=== PATIENT | male | born 1975 | race African-American/Black ===

== ENCOUNTER 2017-12-24 14:22 | Emergency (ER) | payer SELFPAY ==
[~2017-12-24 14:22] MED LIST: INSU100V SQ; NOVO7030P2 SQ
[2017-12-24 14:29] VITALS: BP 194/91; PULSE 100; RESP 16; TEMP 100; O2SAT 97
[2017-12-24] MEDS ORDERED: METF500T PO ×3 (14:44→17:15)
[2017-12-24] MEDS ORDERED: SODIUM CHLORIDE 0.9% FLUSH 10 ML FLUSH IV FLUSH PRN (14:45)
[2017-12-24 14:47] VITALS: BP 169/87; PULSE 95; RESP 15; TEMP 99.6; O2SAT 99
--- NOTE | 2017-12-24 14:55 | PD ---
HPI Chief Complaint: Skin Problem Time Seen by Provider: 14:34 Travel History International Travel<30 days: No Contact w/Intl Traveler<30days: No Traveled to known affect area: No History of Present Illness HPI Patient comes emergency department complaining of right foot and ankle pain that began 2 days ago. Describes pain as pins and needle sensation in his foot and a throbbing in his ankle. Pain is worse with walking or touching it. Patient tried taking Aleve for this with minimal to no improvement of symptoms. Last dose around 1130 this morning. Patient denies any known trauma, fevers, chest pain, shortness of breath. Patient tried soaking his foot as well with no improvement of symptoms. Pain is worse in his ankle and radiates proximally. Patient reports that he does have diabetes with some neuropathy but still has some sensation in his bilateral feet. Severity mild. PFSH Past Medical History Diabetes: Yes Immunizations Current: Yes Social History Alcohol Use: Yes (OCC.) Tobacco Use: Yes (1ppd) Substance Use: Yes (COCAINE LAST TIME USE 2 WKS. AGO) Allergies-Medications (Allergen,Severity, Reaction): Coded Allergies: No Known Allergies (Verified Adverse Reaction, Unknown, 12/24/17) Reported Meds & Prescriptions Reported Meds & Active Scripts Active Metformin (Metformin HCl) 500 Mg Tab 500 Mg PO BID With a meal Humalog Mix 75/25 (Insulin Lispro Protam/Lispro Human) 100 Units/Ml Inj 30 Units SQ BID 30 Days Reported Novolin 70/30 (Insulin Human Isoph/Insulin Regular) 100 Units/Ml Inj 70 Units SQ BID Review of Systems Except as stated in HPI: all other systems reviewed are Neg Physical Exam Narrative GENERAL: Well-developed, overly nourished, in no acute distress, and non-ill appearing. SKIN: Focused skin assessment warm and dry. HEAD: Atraumatic. Normocephalic. EYES: Pupils equal and round. EOMI. No scleral icterus. No injection or drainage. ENT: No nasal bleeding or discharge. Mucous membranes pink and moist. NECK: Trachea midline. Supple. No nuclear rigidity. CARDIOVASCULAR: Dorsal pulses 2+, intact, and equal bilaterally. Capillary refill less than 2 seconds. RESPIRATORY: No accessory muscle use. No respiratory distress. MUSCULOSKELETAL: No obvious deformities. No clubbing. No cyanosis. Trace edema right lower extremity. Full range of motion. Ankle: Neagative anterior draw and Rob test. Negative Naomy's sign. No laxity noted with passive inversion and eversion of BL ankles. Negative squeeze test. Pulses equal BL distal to injury. Capillary refill less than 2 seconds distal to injury and equal BL. Sensation equal BL 1st web space. FROM of toes distal to injury and equal BL. NV intact distal to injury and equal BL. Dorsal pulses equal BL. Patient reports tenderness palpation over right ankle and right foot. Afebrile and nonerythematous. Soft tissue swelling noted over right ankle. No crepitus. No cuts or lesions noted between toes. Calluses noted plan to surface bilateral feet. NEUROLOGICAL: Awake and alert. No obvious cranial nerve deficits. Motor grossly within normal limits. Normal speech. PSYCHIATRIC: Appropriate mood and affect; insight and judgment normal. Data Data Last Documented VS Vital Signs Date Time Temp Pulse Resp B/P (MAP) Pulse Ox O2 Delivery O2 Flow Rate FiO2 12/24/17 17:19 12/24/17 14:56 17 98 Room Air 12/24/17 14:47 99.6 95 Orders Orders Basic Metabolic Panel (Bmp) (12/24/17 14:44) Complete Blood Count With Diff (12/24/17 14:44) Prothrombin Time / Inr (Pt) (12/24/17 14:44) Act Partial Throm Time (Ptt) (12/24/17 14:44) Iv Access Insert/Monitor (12/24/17 14:44) Ecg Monitoring (12/24/17 14:44) Oximetry (12/24/17 14:44) Sodium Chloride 0.9% Flush (Ns Flush) (12/24/17 14:45) Foot, Complete ([id number]) (12/24/17 ) Ankle, Complete ([id number]) (12/24/17 ) Us Leg Venous Doppler (12/24/17 14:44) Uric Acid (12/24/17 14:50) Sodium Chlor 0.9% 1000 Ml Inj (Ns 1000 M (12/24/17 16:30) Ed Discharge Order (12/24/17 17:03) Mandatory Outpatient Referral (12/24/17 17:03) Splint Or Brace Apply/Monitor (12/24/17 17:09) [employer] Request For Service (12/24/17 17:09) Labs Laboratory Tests Test 12/24/17 14:50 White Blood Count 16.0 TH/MM3 Red Blood Count 4.12 MIL/MM3 Hemoglobin 10.7 GM/DL Hematocrit 31.5 % Mean Corpuscular Volume 76.4 FL Mean Corpuscular Hemoglobin 25.9 PG Mean Corpuscular Hemoglobin Concent 33.9 % Red Cell Distribution Width 14.3 % Platelet Count 273 TH/MM3 Mean Platelet Volume 8.8 FL Neutrophils (%) (Auto) 80.2 % Lymphocytes (%) (Auto) 8.6 % Monocytes (%) (Auto) 9.4 % Eosinophils (%) (Auto) 0.8 % Basophils (%) (Auto) 1.0 % Neutrophils # (Auto) 12.8 TH/MM3 Lymphocytes # (Auto) 1.4 TH/MM3 Monocytes # (Auto) 1.5 TH/MM3 Eosinophils # (Auto) 0.1 TH/MM3 Basophils # (Auto) 0.2 TH/MM3 CBC Comment DIFF FINAL Differential Comment Prothrombin Time 10.0 SEC Prothromb Time International Ratio 1.0 RATIO Activated Partial Thromboplast Time 26.4 SEC Blood Urea Nitrogen 19 MG/DL Creatinine 1.42 MG/DL Random Glucose 442 MG/DL Calcium Level 9.2 MG/DL Uric Acid 7.6 MG/DL Sodium Level 133 MEQ/L Potassium Level 4.5 MEQ/L Chloride Level 98 MEQ/L Carbon Dioxide Level 25.9 MEQ/L Anion Gap 9 MEQ/L Estimat Glomerular Filtration Rate 67 ML/MIN MDM Medical Decision Making Medical Screen Exam Complete: Yes Emergency Medical Condition: Yes Interpretation(s) Last Impressions Lower Extremity Ultrasound 12/24/17 1444 Signed Impressions: Service Date/Time: December 16:13 - CONCLUSION: Negative for deep venous thrombosis. Franklin Soni MD Foot X-Ray 12/24/17 0000 Signed Impressions: Service Date/Time: December 14:58 - CONCLUSION: 1. No acute right foot abnormality is identified. 2. Small arterial vessel calcification in a pattern typically seen in diabetic patients. Gibson Clay MD Ankle X-Ray 12/24/17 0000 Signed Impressions: Service Date/Time: December 14:56 - CONCLUSION: No acute right ankle abnormality is identified. 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 Gibson Clay MD Differential Diagnosis Gout, pseudogout, fracture, DVT, cellulitis, sprain Narrative Course Patient in no obvious distress upon re-evaluation. Patient reports that he is only been taking one metformin intermittently as he is on his last prescription and currently does not have a primary care doctor. Patient reports he is supposed to be taking it twice daily. All pertinent laboratory/Radiology result (s) discussed with patient. There is no signs of cellulitis or other infection. Mandatory referral was placed to podiatry. Discussed patient with Dr. Meza prior to discharge, who is in agreement plan of care and disposition. Patient was asked if they wanted to speak to my attending, which the patient did not wish to do at this time. Any questions/concerns in reference to patient diagnosis/condition discussed and clarified prior to patient's discharge. Reinforced sheer importance of close follow up with patient 's primary physician or primary care clinic and neighborhood aide. Instructed patient to return to ED immediately, if symptoms return/worsen. Patient showed understanding of above instructions. Further instructions and recommendations were detailed in discharge paperwork. Patient ambulated without difficulty out of ED at discharge. Diagnosis Primary Impression: Right ankle pain Qualified Codes: M25.571 - Pain in right ankle and joints of right foot Additional Impressions: Right foot pain Medication refill Referrals: [facility] Patient Instructions: Ankle Stirrup Splint (ED), Arthralgia (ED), General Instructions, Medication Refill, ED, Metatarsalgia (DC) Additional Instructions: Follow-up with your primary care physician and/or neighborhood aide 1-3 days for reevaluation. Take all medication as prescribed. Wear Toni wrap and ankle stirrup splint for comfort as needed. Apply ice to affected area 20 min/h as needed for pain. Return to the emergency department if symptoms get worse. Med/Other Pt SpecificInfo: Prescription(s) given Scripts Metformin (Metformin) 500 Mg Tab 500 MG PO BID for Blood Sugar Management, #60 TAB 0 Refills With a meal Prov: Ranjan Meza MD 12/24/17 Disposition: 01 DISCHARGE HOME Condition: Stable Naren Bailey December 24, 2017 14:55
[2017-12-24 14:56] VITALS: RESP 17; O2SAT 98
[2017-12-24 15:21] LABS: AUTOMATED NEUTROPHIL # 12.8 TH/MM3 (1.8-7.7); BASOPHIL # 0.2 TH/MM3 (0-0.2); EOSINOPHIL # 0.1 TH/MM3 (0-0.4); EOSINOPHIL % 0.8 % (0.0-4.0); HEMATOCRIT 31.5 % (39.0-51.0); HEMOGLOBIN 10.7 GM/DL (13.0-17.0); LYMPH % 8.6 % (9.0-44.0); LYMPHOCYTE # 1.4 TH/MM3 (1.0-4.8); MEAN CELL VOLUME 76.4 FL (80.0-100.0); MEAN CORPUSCULAR HEMOGLOBIN 25.9 PG (27.0-34.0); MEAN CORPUSCULAR HGB CONC 33.9 % (32.0-36.0); MEAN PLATELET VOLUME 8.8 FL (7.0-11.0); MONO % 9.4 % (0.0-8.0); MONOCYTE # 1.5 TH/MM3 (0-0.9); NEUT % 80.2 % (16.0-70.0); PLATELET COUNT 273 TH/MM3 (150-450); RED BLOOD COUNT 4.12 MIL/MM3 (4.50-5.90); RED CELL DISTRIBUTION WIDTH 14.3 % (11.6-17.2)
--- NOTE | 2017-12-24 15:23 | RADRPT ---
EXAM DATE/TIME: 12/24/2017 14:56 [facility] COMPARISON: No previous studies available for comparison. INDICATIONS : Right ankle pain; No known injury. MEDICAL HISTORY : None. SURGICAL HISTORY : ORIF right ankle and removal of hardware. ENCOUNTER: Initial ACUITY: 1 day PAIN SCORE: 7/10 LOCATION: Right ankle. FINDINGS: 3 views of the right ankle demonstrate no fracture or dislocation. Mineralization is within normal li mits. There are osteophytes at the tibiotalar joint. Mineralization is present within the distal inte rosseous membrane. There is mild soft tissue swelling medially. Small vessel arterial vascular calcif ication is present. CONCLUSION: No acute right ankle abnormality is identified. 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 Gibson Clay MD on December 24, 2017 at 15:20 Board Certified Radiologist. This report was verified electronically.
--- NOTE | 2017-12-24 15:25 | RADRPT ---
EXAM DATE/TIME: 12/24/2017 14:58 [facility] COMPARISON: No previous studies available for comparison. INDICATIONS : Right foot pain; no known injury. MEDICAL HISTORY : None. SURGICAL HISTORY : None. ENCOUNTER: Initial ACUITY: 1 day PAIN SCORE: 8/10 LOCATION: Right foot. FINDINGS: 3 views of the right foot demonstrate no fracture or dislocation. Mineralization is normal. Lisfranc joint appears intact. No significant degenerative change is present. No soft tissue abnormality or ra diopaque foreign body is identified. There is small vessel arterial last or calcification. CONCLUSION: 1. No acute right foot abnormality is identified. 2. Small arterial vessel calcification in a pattern typically seen in diabetic patients. Gibson Clay MD on December 24, 2017 at 15:22 Board Certified Radiologist. This report was verified electronically.
[2017-12-24 16:03] LABS: BICARBONATE 25.9 MEQ/L (21.0-32.0); CALCIUM 9.2 MG/DL (8.5-10.1); CREATININE 1.42 MG/DL (0.60-1.30)
--- NOTE | 2017-12-24 16:29 | RADRPT ---
EXAM DATE/TIME: 12/24/2017 16:13 [facility] COMPARISON: No previous studies available for comparison. INDICATIONS : Right leg pain. MEDICAL HISTORY : Diabetes. Substance use. Tobacco use. SURGICAL HISTORY : Right ankle surgery. ENCOUNTER: Initial ACUITY: 2 day PAIN SCORE: 10/10 LOCATION: Right leg. TECHNIQUE: Venous ultrasound of the leg was performed from the inguinal ligament to the proximal calf. Real-karen e, color Doppler and spectral tracing, compression and augmentation techniques were used. FINDINGS: There is normal compressibility of the deep venous system from the inguinal region to the proximal ca lf. No echogenic clot is seen in the lumen of the common femoral, femoral, popliteal, and posterior tibial veins. There is a normal response of the venous system to proximal and distal augmentation an d respiration. CONCLUSION: Negative for deep venous thrombosis. Franklin Soni MD on December 24, 2017 at 16:26 Board Certified Radiologist. This report was verified electronically.
[2017-12-24] MEDS ORDERED: SODIUM CHLOR 0.9% 1000 ML INJ 1,000 ML IV ONE (16:30)
== END 2017-12-24 18:39 | disposition home or self-care (01) ==
LOC: NEPE 14:22
DX: M25.571 Pain in right ankle and joints of right foot (principal); M79.604 Pain in right leg; E11.40 Type 2 diabetes mellitus with diabetic neuropathy, unspecified; F17.200 Nicotine dependence, unspecified, uncomplicated; Z79.4 Long term (current) use of insulin
CPT/HCPCS: 73610; 73630; 80048; 84550; 85025; 85610; 85730; 93971; 99285; E0113; J7030; L1906

== ENCOUNTER 2018-01-04 11:25 | Inpatient (IN) | payer SELFPAY ==
[~2018-01-04] VITALS: Ht 172.7 cm; Wt 118.9 kg
[~2018-01-04 11:25] MED LIST changes: +METF500T PO
[2018-01-04 11:36] VITALS: BP 115/58; PULSE 90; RESP 20; TEMP 98.5; O2SAT 99
[2018-01-04] MEDS ORDERED: SODIUM CHLOR 0.9% 1000 ML INJ 1,000 ML IV SCH (12:13)
[2018-01-04] MEDS ORDERED: ONDANSETRON ODT 4 MG TAB PO ONE (12:15)
[2018-01-04] MEDS ORDERED: PIPERACIL-TAZO 3.375 GM PREMIX 50 ML IV ONE (12:15)
[2018-01-04] MEDS ORDERED: MORPHINE SULFATE 4 MG/ML INJ IV PUSH ONE (12:15)
[2018-01-04] MEDS ORDERED: VANCOMYCIN INJ 1,000 MG in SODIUM CHLOR 0.9% 250 ML INJ 250 ML IV ONE (12:15)
--- NOTE | 2018-01-04 12:21 | PD ---
HPI Chief Complaint: Musculoskeletal Complaint Time Seen by Provider: 12:12 Travel History International Travel<30 days: No Contact w/Intl Traveler<30days: No Traveled to known affect area: No History of Present Illness HPI 42-year-old male smoker with history of diabetes presents for evaluation of right foot pain. Symptoms initially started spontaneously 3 weeks ago reports that he developed a blister proximal to the right fourth toe about 2 weeks ago which spontaneously popped. He has had increasing pain and swelling and foul smell since then. He has had subjective fevers at home. He was started on Bactrim 5 days ago with by his primary care physician. Symptoms worsen she was sent here by his primary care physician for further evaluation. Pain is throbbing, constant, worse with ambulation or palpation. He reports that he has a history of diabetes but has not been on any other medications in the past 2 years, was started back on glipizide and metformin last week by his primary care physician. No other complaints at this time. PFSH Past Medical History Cardiovascular Problems: Yes (HTN) Diabetes: Yes Diminished Hearing: No Immunizations Current: Yes Social History Alcohol Use: No Tobacco Use: Yes (1ppd) Substance Use: Yes (COCAINE LAST TIME USE 2 WKS. AGO) Allergies-Medications (Allergen,Severity, Reaction): Coded Allergies: No Known Allergies (Verified Adverse Reaction, Unknown, 01/04/18) Reported Meds & Prescriptions Reported Meds & Active Scripts Active Metformin (Metformin HCl) 500 Mg Tab 500 Mg PO BID With a meal Humalog Mix 75/25 (Insulin Lispro Protam/Lispro Human) 100 Units/Ml Inj 30 Units SQ BID 30 Days Reported Novolin 70/30 (Insulin Human Isoph/Insulin Regular) 100 Units/Ml Inj 70 Units SQ BID Review of Systems Except as stated in HPI: all other systems reviewed are Neg Physical Exam Narrative GENERAL: Well-developed well-nourished male in no acute distress SKIN: Warm and dry. 3 cm area of ulceration on the dorsum of the right foot proximal to the fourth toe. Foul-smelling, tender to palpation. There is some foul-smelling purulence in interdigital space between the third and fourth toes. The right fourth toe appears to have early necrotic changes. HEAD: Atraumatic. Normocephalic. EYES: Pupils equal and round. No scleral icterus. No injection or drainage. ENT: No nasal bleeding or discharge. Mucous membranes pink and moist. NECK: Trachea midline. No JVD. CARDIOVASCULAR: Regular rate and rhythm. No murmur appreciated. RESPIRATORY: No accessory muscle use. Clear to auscultation. Breath sounds equal bilaterally. GASTROINTESTINAL: Abdomen soft, non-tender, nondistended. Hepatic and splenic margins not palpable. MUSCULOSKELETAL: Skin as noted above. Unable to palpate the dorsalis pedis or posterior tibial pulses on either ankle or foot. The posterior tibial pulses are dopplerable. The left dorsalis pedis pulse is dopplerable. Unable to Doppler right dorsalis pedis pulse. NEUROLOGICAL: Awake and alert. No obvious cranial nerve deficits. Motor grossly within normal limits. Normal speech. Data Data Last Documented VS Vital Signs Date Time Temp Pulse Resp B/P (MAP) Pulse Ox O2 Delivery O2 Flow Rate FiO2 01/04/18 11:36 98.5 90 20 115/58 (77) 99 Orders Orders Sepsis Workup Initiated (01/04/18 ) Complete Blood Count With Diff (01/04/18 12:13) Comprehensive Metabolic Panel (01/04/18 12:13) Prothrombin Time / Inr (Pt) (01/04/18 12:13) Act Partial Throm Time (Ptt) (01/04/18 12:13) Lactic Acid Sepsis Protocol (01/04/18 12:13) Magnesium (Mg) (01/04/18 12:13) Blood Culture (01/04/18 12:13) Wound Culture And Gram Stain (01/04/18 12:13) Ecg Monitoring (01/04/18 12:13) Iv Access Insert/Monitor (01/04/18 12:13) Oximetry (01/04/18 12:13) C-Reactive Protein (Crp) (01/04/18 12:13) Westergren Sedimentation Rate (01/04/18 12:13) Morphine Inj (Morphine Inj) (01/04/18 12:15) Ondansetron Odt (Zofran Odt) (01/04/18 12:15) Piperacil-Tazo 3.375 Gm Premix (Zosyn 3. (01/04/18 12:15) Vancomycin Inj (Vancomycin Inj) (01/04/18 12:15) Sodium Chlor 0.9% 1000 Ml Inj (Ns 1000 M (01/04/18 12:13) Foot, Complete (Lpv3len) (01/04/18 ) Aspirin Chew (Aspirin Chew) (01/04/18 13:15) Dextrose 25% In Water Inj (D25w Inj) (01/04/18 13:45) Npo After Midnight W/ Po Meds (01/05/18 Breakfast) Consult Vascular Surgery (01/04/18 ) (Hub Use Only)Inp Phy Cons/Ref (01/04/18 ) Admit Order (Ed Use Only) (01/04/18 14:17) Admit To Inpatient (01/04/18 ) Inpatient Certification (01/04/18 ) Diet 1800 Ada Cons Carb (01/04/18 Dinner) Diet Heart Healthy (01/04/18 Dinner) Vital Signs (Adult) BILLY.Q4H (01/04/18 14:17) Activity Oob Ad Jacquelyn (01/04/18 14:17) Labs Laboratory Tests Test 01/04/18 12:35 White Blood Count 18.9 TH/MM3 Red Blood Count 4.20 MIL/MM3 Hemoglobin 10.5 GM/DL Hematocrit 31.6 % Mean Corpuscular Volume 75.3 FL Mean Corpuscular Hemoglobin 25.1 PG Mean Corpuscular Hemoglobin Concent 33.3 % Red Cell Distribution Width 14.5 % Platelet Count 545 TH/MM3 Mean Platelet Volume 7.5 FL Neutrophils (%) (Auto) 75.7 % Lymphocytes (%) (Auto) 15.3 % Monocytes (%) (Auto) 7.8 % Eosinophils (%) (Auto) 0.9 % Basophils (%) (Auto) 0.3 % Neutrophils # (Auto) 14.3 TH/MM3 Lymphocytes # (Auto) 2.9 TH/MM3 Monocytes # (Auto) 1.5 TH/MM3 Eosinophils # (Auto) 0.2 TH/MM3 Basophils # (Auto) 0.1 TH/MM3 CBC Comment DIFF FINAL Differential Comment Erythrocyte Sedimentation Rate GREATER THAN 140 mm/hr Prothrombin Time 10.0 SEC Prothromb Time International Ratio 1.0 RATIO Activated Partial Thromboplast Time 26.7 SEC Blood Urea Nitrogen 19 MG/DL Creatinine 1.66 MG/DL Random Glucose 67 MG/DL Total Protein 8.2 GM/DL Albumin 2.3 GM/DL Calcium Level 9.8 MG/DL Magnesium Level 1.7 MG/DL Alkaline Phosphatase 179 U/L Aspartate Amino Transf (AST/SGOT) 18 U/L Alanine Aminotransferase (ALT/SGPT) 16 U/L Total Bilirubin 0.1 MG/DL Sodium Level 139 MEQ/L Potassium Level 3.7 MEQ/L Chloride Level 107 MEQ/L Carbon Dioxide Level 21.9 MEQ/L Anion Gap 10 MEQ/L Estimat Glomerular Filtration Rate 56 ML/MIN Lactic Acid Level 1.7 mmol/L C-Reactive Protein 13.30 MG/DL MDM Medical Decision Making Medical Screen Exam Complete: Yes Emergency Medical Condition: Yes Medical Record Reviewed: Yes Differential Diagnosis Diabetic foot ulcer, gangrene, cellulitis, osteomyelitis, peripheral vascular disease, arterial occlusion Narrative Course Patient was placed on ECG monitoring pulse oximetry. Lab work, blood cultures, wound culture, foot x-ray have been ordered. The patient will be given IV morphine, normal saline, vancomycin and Zosyn. I discussed the case with the on -call vascular surgeon Dr. Cullen who will be happy to see the patient in consultation, recommend a dose of aspirin today, they plan on doing CT with runoff tomorrow. Lab work is been reviewed. WBC count is 18.9, platelet count is 545, ESR is greater than 140, CMP reveals a GFR 56, glucose 67, CRP is 13.3. Foot x-ray is normal. The patient will be admitted. Discussed with Dr. Gutierrez who is agreeable. Diagnosis Primary Impression: Diabetic foot infection Additional Impressions: Leukocytosis Peripheral vascular disease Admitting Information Admitting Physician Requests: Admit Larry Mauricio January 04, 2018 12:21
[2018-01-04 12:40] VITALS: O2SAT 98
[2018-01-04 12:53] LABS: AUTOMATED NEUTROPHIL # 14.3 TH/MM3 (1.8-7.7); BASOPHIL # 0.1 TH/MM3 (0-0.2); BASOPHIL % 0.3 % (0.0-2.0); EOSINOPHIL # 0.2 TH/MM3 (0-0.4); EOSINOPHIL % 0.9 % (0.0-4.0); HEMATOCRIT 31.6 % (39.0-51.0); HEMOGLOBIN 10.5 GM/DL (13.0-17.0); LYMPH % 15.3 % (9.0-44.0); LYMPHOCYTE # 2.9 TH/MM3 (1.0-4.8); MEAN CELL VOLUME 75.3 FL (80.0-100.0); MEAN CORPUSCULAR HEMOGLOBIN 25.1 PG (27.0-34.0); MEAN CORPUSCULAR HGB CONC 33.3 % (32.0-36.0); MEAN PLATELET VOLUME 7.5 FL (7.0-11.0); MONO % 7.8 % (0.0-8.0); MONOCYTE # 1.5 TH/MM3 (0-0.9); NEUT % 75.7 % (16.0-70.0); PLATELET COUNT 545 TH/MM3 (150-450); RED CELL DISTRIBUTION WIDTH 14.5 % (11.6-17.2); WHITE BLOOD COUNT 18.9 TH/MM3 (4.0-11.0)
--- NOTE | 2018-01-04 13:11 | RADRPT ---
EXAM DATE/TIME: 01/04/2018 12:43 [facility] COMPARISON: FOOT RIGHT COMPLETE ([id number]), December 24, 2017, 14:58. INDICATIONS : Right foot sore. MEDICAL HISTORY : Hypertension. Diabetes mellitus type II. SURGICAL HISTORY : None. ENCOUNTER: Initial ACUITY: 2 weeks PAIN SCORE: 6/10 LOCATION: Right dorsal foot. FINDINGS: Three view examination of the right foot demonstrates no soft tissue swelling, dislocation, or fractu re. The tarsal bones appear intact. The interphalangeal and metatarsophalangeal joints are intact. The calcaneus is intact. Bony mineralization is normal. Vascular calcifications again seen. CONCLUSION: Negative for acute process. Antonio Cole MD FACR on January 04, 2018 at 13:07 Board Certified Radiologist. This report was verified electronically.
[2018-01-04] MEDS ORDERED: ASPIRIN 81 MG CHEW TAB CHEW ONE (13:15)
[2018-01-04 13:16] LABS: ALBUMIN 2.3 GM/DL (3.4-5.0); ALT (GPT) 16 U/L (12-78); AST (GOT) 18 U/L (15-37); BICARBONATE 21.9 MEQ/L (21.0-32.0); BLOOD UREA NITROGEN 19 MG/DL (7-18); CALCIUM 9.8 MG/DL (8.5-10.1); CHLORIDE 107 MEQ/L (98-107); CREATININE 1.66 MG/DL (0.60-1.30); GLOMERULAR FILTRATION RATE 56 ML/MIN (>89); GLUCOSE,RANDOM 67 MG/DL (74-106); MAGNESIUM 1.7 MG/DL (1.5-2.5); SODIUM (NA) 139 MEQ/L (136-145)
[2018-01-04 13:18] LABS: ALKALINE PHOSPHATASE 179 U/L (45-117); TOTAL BILIRUBIN ADULT 0.1 MG/DL (0.2-1.0); TOTAL PROTEIN 8.2 GM/DL (6.4-8.2)
[2018-01-04] MEDS ORDERED: DEXTROSE 25% IN WATER 10 ML SYRINGE IV PUSH ONE (13:45)
--- NOTE | 2018-01-04 13:51 | PD.VS.CON ---
History of Present Illness Chief Complaint: Ischemic R LE with tissue loss Consult Requested by: History of Present Illness Mr. Garibay is a 42/M with a PMH of DM, GOUT and HTN. Pt c/o R ankle pain and swelling 3 weeks ago (no injury) Pt endorsed 2W ago he developed a blister proximal aspect below the 4th toe that has worsened and now presents w/ dry gangrene B LE warm with motor intact NON palpable distal pulses present (Kasey Caldwell) Past/Family/Social History Past Medical History DM HTN GOUT Past Surgical History Denied Social History Smokes 1ppd of cigarettes Denied ETOH Substance abuse- Cocaine (Kasey Caldwell) Home Medications Active Scripts Insulin Lisp Protam/Lisp Human (Humalog Mix 75/25) 100 Units/Ml Inj, 30 UNITS SQ BID for 30 Days, ML Prov:Santino Amado MD 12/28/12 Reported Medications Insulin Human Isophan/Regular (Novolin 70/30) 100 Units/Ml Inj, 70 UNITS SQ BID , ML 06/11/12 Discontinued Scripts Metformin (Metformin) 500 Mg Tab, 500 MG PO BID for Blood Sugar Management, #60 TAB 0 Refills With a meal Prov:Ranjan Meza MD 12/24/17 Coded Allergies: No Known Allergies (Verified Adverse Reaction, Unknown, 01/04/18) Review of Systems Cardiovascular: DENIES: Chest pain, Claudication Integumentary: COMPLAINS OF: Abnormal pigmentation (Dry gangrene to right proximal aspect of foot (below the 4th digit toe) ) (Kasey Caldwell) Physical Exam Vitals/I&O Date Time Temp Pulse Resp B/P (MAP) Pulse Ox O2 Delivery O2 Flow Rate FiO2 01/04/18 11:36 98.5 90 20 115/58 (77) 99 Neuro: GCS 15 A&OX3 Speech clear HEENT: [place] Neck: No JVD distention Heart: RRR +S1,S2 Lungs: BS CTA Abdomen: S/NT Vascular: Palpable R/L Femoral pulses Non palpable R/L DP Faint R/L DP heard via Doppler Biphasic R/L PT heard via Doppler LE warm w/ motor intact Dry gangrene to R foot present w/o odor/swelling/erythema Extremities: R foot pain (Kasey Caldwell) Laboratory Tests Test 01/04/18 12:35 White Blood Count 18.9 Red Blood Count 4.20 Hemoglobin 10.5 Hematocrit 31.6 Mean Corpuscular Volume 75.3 Mean Corpuscular Hemoglobin 25.1 Mean Corpuscular Hemoglobin Concent 33.3 Red Cell Distribution Width 14.5 Platelet Count 545 Mean Platelet Volume 7.5 Neutrophils (%) (Auto) 75.7 Lymphocytes (%) (Auto) 15.3 Monocytes (%) (Auto) 7.8 Eosinophils (%) (Auto) 0.9 Basophils (%) (Auto) 0.3 Neutrophils # (Auto) 14.3 Lymphocytes # (Auto) 2.9 Monocytes # (Auto) 1.5 Eosinophils # (Auto) 0.2 Basophils # (Auto) 0.1 CBC Comment DIFF FINAL Differential Comment Prothrombin Time 10.0 Prothromb Time International Ratio 1.0 Activated Partial Thromboplast Time 26.7 Blood Urea Nitrogen 19 Creatinine 1.66 Random Glucose 67 Total Protein 8.2 Albumin 2.3 Calcium Level 9.8 Magnesium Level 1.7 Alkaline Phosphatase 179 Aspartate Amino Transf (AST/SGOT) 18 Alanine Aminotransferase (ALT/SGPT) 16 Total Bilirubin 0.1 Sodium Level 139 Potassium Level 3.7 Chloride Level 107 Carbon Dioxide Level 21.9 Anion Gap 10 Estimat Glomerular Filtration Rate 56 Lactic Acid Level 1.7 C-Reactive Protein 13.30 Date/Time Source Procedure Growth Status 01/04/18 12:40 Blood Peripheral Aerobic Blood Culture Pending Received 01/04/18 12:40 Blood Peripheral Anaerobic Blood Culture Pending Received 01/04/18 12:30 Wound Foot Gram Stain Pending Received 01/04/18 12:30 Wound Foot Wound Culture Pending Received (Kasey Caldwell) Assessment and Plan Assessment: (1) Peripheral vascular disease Status: Acute (2) Diabetic foot infection Status: Acute Plan 42/M with R LE ischemia/ tissue loss for 2W Pt w/ non palpable distal pulses LE warm w/ motor intact Plan Discussed R LE angiogram for potential revascularization w/ pt and family Questions answered Pt scheduled for R LE angiogram w/ Dr. Cullen tomorrow (01/05/18) NPO after midnight in prep for diagnostic procedure Kasey Caldwell [employer] TE[employer] [facility]/[employer] [phone] (Kasey Caldwell) Plan Agree with above; repeated H&P. palpable R femoral pulse and no popliteal or pedal pulses. Foot with diabetic ulcer. 1. Needs revascularization: will perform R LE angiogram and possible endovascular intervention tomorrow (Ana). NPO after MN 2. Check Hgb A1c 3. Broad antibiotics 4. Podiatry consult [facility] psychologist [facility] - Heart [facility] Vascular [facility] at [facility] [phone] (Moe Cullen MD) Kasey Caldwell January 04, 2018 13:51 Moe Cullen MD January 04, 2018 22:26
--- NOTE | 2018-01-04 14:56 | PD ---
Physical Exam Narrative Please see mid-level provider note for full history and physical and disposition. Patient presented to the emergency department with right foot pain. Was afebrile vital signs are stable found to have infected diabetic foot ulcer received IV antibiotics and admitted. Data Data Last Documented VS Vital Signs Date Time Temp Pulse Resp B/P (MAP) Pulse Ox O2 Delivery O2 Flow Rate FiO2 01/04/18 11:36 98.5 90 20 115/58 (77) 99 Orders Orders Sepsis Workup Initiated (01/04/18 ) Complete Blood Count With Diff (01/04/18 12:13) Comprehensive Metabolic Panel (01/04/18 12:13) Prothrombin Time / Inr (Pt) (01/04/18 12:13) Act Partial Throm Time (Ptt) (01/04/18 12:13) Lactic Acid Sepsis Protocol (01/04/18 12:13) Magnesium (Mg) (01/04/18 12:13) Blood Culture (01/04/18 12:13) Wound Culture And Gram Stain (01/04/18 12:13) Ecg Monitoring (01/04/18 12:13) Iv Access Insert/Monitor (01/04/18 12:13) Oximetry (01/04/18 12:13) C-Reactive Protein (Crp) (01/04/18 12:13) Westergren Sedimentation Rate (01/04/18 12:13) Morphine Inj (Morphine Inj) (01/04/18 12:15) Ondansetron Odt (Zofran Odt) (01/04/18 12:15) Piperacil-Tazo 3.375 Gm Premix (Zosyn 3. (01/04/18 12:15) Vancomycin Inj (Vancomycin Inj) (01/04/18 12:15) Sodium Chlor 0.9% 1000 Ml Inj (Ns 1000 M (01/04/18 12:13) Foot, Complete (Edg4pmf) (01/04/18 ) Aspirin Chew (Aspirin Chew) (01/04/18 13:15) Dextrose 25% In Water Inj (D25w Inj) (01/04/18 13:45) Npo After Midnight W/ Po Meds (01/05/18 Breakfast) Consult Vascular Surgery (01/04/18 ) (Hub Use Only)Inp Phy Cons/Ref (01/04/18 ) Admit Order (Ed Use Only) (01/04/18 14:17) Admit To Inpatient (01/04/18 ) Inpatient Certification (01/04/18 ) Diet 1800 Ada Cons Carb (01/04/18 Dinner) Diet Heart Healthy (01/04/18 Dinner) Vital Signs (Adult) BILLY.Q4H (01/04/18 14:17) Activity Oob Ad Jacquelyn (01/04/18 14:17) Labs Laboratory Tests Test 01/04/18 12:35 White Blood Count 18.9 TH/MM3 Red Blood Count 4.20 MIL/MM3 Hemoglobin 10.5 GM/DL Hematocrit 31.6 % Mean Corpuscular Volume 75.3 FL Mean Corpuscular Hemoglobin 25.1 PG Mean Corpuscular Hemoglobin Concent 33.3 % Red Cell Distribution Width 14.5 % Platelet Count 545 TH/MM3 Mean Platelet Volume 7.5 FL Neutrophils (%) (Auto) 75.7 % Lymphocytes (%) (Auto) 15.3 % Monocytes (%) (Auto) 7.8 % Eosinophils (%) (Auto) 0.9 % Basophils (%) (Auto) 0.3 % Neutrophils # (Auto) 14.3 TH/MM3 Lymphocytes # (Auto) 2.9 TH/MM3 Monocytes # (Auto) 1.5 TH/MM3 Eosinophils # (Auto) 0.2 TH/MM3 Basophils # (Auto) 0.1 TH/MM3 CBC Comment DIFF FINAL Differential Comment Erythrocyte Sedimentation Rate GREATER THAN 140 mm/hr Prothrombin Time 10.0 SEC Prothromb Time International Ratio 1.0 RATIO Activated Partial Thromboplast Time 26.7 SEC Blood Urea Nitrogen 19 MG/DL Creatinine 1.66 MG/DL Random Glucose 67 MG/DL Total Protein 8.2 GM/DL Albumin 2.3 GM/DL Calcium Level 9.8 MG/DL Magnesium Level 1.7 MG/DL Alkaline Phosphatase 179 U/L Aspartate Amino Transf (AST/SGOT) 18 U/L Alanine Aminotransferase (ALT/SGPT) 16 U/L Total Bilirubin 0.1 MG/DL Sodium Level 139 MEQ/L Potassium Level 3.7 MEQ/L Chloride Level 107 MEQ/L Carbon Dioxide Level 21.9 MEQ/L Anion Gap 10 MEQ/L Estimat Glomerular Filtration Rate 56 ML/MIN Lactic Acid Level 1.7 mmol/L C-Reactive Protein 13.30 MG/DL [facility] Supervised Visit with MARINO: Yes Diagnosis Primary Impression: Diabetic foot infection Additional Impressions: Leukocytosis Qualified Codes: D72.829 - Elevated white blood cell count, unspecified Peripheral vascular disease Admitting Information Admitting Physician Requests: Admit Condition: Stable Berta Funez MD January 04, 2018 14:56
[2018-01-04] MEDS: SODIUM CHLOR 0.9% 1000 ML INJ 1,000 ML IV SCH (15:37)
[2018-01-04 16:03] VITALS: BP 148/75; PULSE 77; RESP 18; O2SAT 100
[2018-01-04 16:25] VITALS: BP 167/86; PULSE 80; RESP 18; TEMP 97.6; O2SAT 99
--- NOTE | 2018-01-04 17:23 | HHI.HP ---
[facility] Physician Vivek Clifford, Admission Diagnosis Diabetic foot ulcer, leukocytosis, peripheral vascular disease Diagnoses: Chief Complaint: Right foot pain swelling open wound Travel History International Travel<30 Days: No Contact w/Intl Traveler <30 Da: No Traveled to Known Affected Are: No Sepsis Criteria Sepsis Criteria (SIRS+source): Infect source susp/known History of Present Illness Patient is a 43-year-old male diabetic insulin requiring, hypertension who about 2 weeks prior to admission complaining complained of swelling of the right foot. Patient with fever and chills. Next day developed blister on the anterior aspect of the foot and sought consult with the PCP where it was initially told it was gout.. patient also states that he was also placed on Bactrim for 5 days. 4 days later with worsening swelling. Draining foul- smelling yellowish exudate minimal per . He was seen in follow-up by primary care physician and was sent here for further evaluation and management. Patient states good hypoglycemic awareness. He states that he was just also recently started on 7030 10 units twice a day. Patient complains of neuropathic pain for which he takes gabapentin. Review of Systems Constitutional: DENIES: Fever, Weight loss, Chills, Change in appetite Eyes: DENIES: Blurred vision, Double Vision Ears, nose, mouth, throat: DENIES: Tinnitus, Ear Pain, Epistaxis, Odynophagia Respiratory: DENIES: Cough, Hemoptysis, Sputum production, Shortness of breath Cardiovascular: DENIES: Chest pain, Palpitations, Dyspnea on Exertion, Lower Extremity Edema, Orthopnea Gastrointestinal: DENIES: Black stools, Bloody stools, Difficulty Swallowing, Anorexia Genitourinary: DENIES: Urgency, Hematuria, Penile Discharge Musculoskeletal: DENIES: Joint pain, Stiffness Integumentary: DENIES: Pruritus Hematologic/lymphatic: DENIES: Bruising Immunologic/allergic: DENIES: Urticaria Neurologic: DENIES: Headache, Speech Problems, Tremor Psychiatric: DENIES: Suicidal Ideation, Homicidal Ideation Past Family Social History Past Medical History Hypertension Diabetes type 2 insulin requiring at one point Neuropathy Past Surgical History Right ankle surgery secondary to fracture status post fall at 15 years of age Wrist surgery secondary to fracture Reported Medications Metformin 1000 mg twice a day Gabapentin 300 mg 3 times a day Lisinopril patient is not sure if it has been over 5 mg daily 7030 unclear how many units states he was just recently started. Twice a day Allergies: Coded Allergies: No Known Allergies (Verified Adverse Reaction, Unknown, 01/04/18) Family History Both parents have hypertension and diabetes Social History Half pack per day smoker Denies alcohol or recreational drug use Physical Exam Vital Signs Vital Signs Date Time Temp Pulse Resp B/P (MAP) Pulse Ox O2 Delivery O2 Flow Rate FiO2 01/04/18 16:25 97.6 80 18 167/86 (113) 99 01/04/18 16:03 77 18 148/75 (99) 100 Room Air 01/04/18 12:40 98 Room Air 01/04/18 11:36 98.5 90 20 115/58 (77) 99 Physical Exam GENERAL:, in no apparent distress. SKIN: No rashes, HEAD: Atraumatic. Normocephalic. EYES: Pupils equal round and reactive. Extraocular motions intact. No scleral icterus. ENT: Nose without bleeding Throat without erythema.. Airway patent. NECK: Trachea midline. No JVD or lymphadenopathy. Supple, nontender, no meningeal signs. CARDIOVASCULAR: Regular rate and rhythm without murmurs, gallops, or rubs. RESPIRATORY: Clear to auscultation. Breath sounds equal bilaterally. No wheezes , rales, or rhonchi. GASTROINTESTINAL: Abdomen soft, non-tender, nondistended. No guarding. MUSCULOSKELETAL: Right forefoot anterior aspect with irregular about 5 cm x 4 cm fluctuant superficial ulcer -intact superficially you can see under the skin with lt yellowish discoloration- pus with dry gangrene of the tip of the fourth toe, base of the posterior aspect of 4th toe with small open wound, draining foul-smelling thin yellowish fluid Foot warm to touch. NEUROLOGICAL: Awake and alert. Cranial nerves II through XII intact. Motor grossly within normal limits. Five out of 5 muscle strength in all muscle groups. Normal speech. Laboratory Laboratory Tests Test 01/04/18 12:35 White Blood Count 18.9 Red Blood Count 4.20 Hemoglobin 10.5 Hematocrit 31.6 Mean Corpuscular Volume 75.3 Mean Corpuscular Hemoglobin 25.1 Mean Corpuscular Hemoglobin Concent 33.3 Red Cell Distribution Width 14.5 Platelet Count 545 Mean Platelet Volume 7.5 Neutrophils (%) (Auto) 75.7 Lymphocytes (%) (Auto) 15.3 Monocytes (%) (Auto) 7.8 Eosinophils (%) (Auto) 0.9 Basophils (%) (Auto) 0.3 Neutrophils # (Auto) 14.3 Lymphocytes # (Auto) 2.9 Monocytes # (Auto) 1.5 Eosinophils # (Auto) 0.2 Basophils # (Auto) 0.1 CBC Comment DIFF FINAL Differential Comment Erythrocyte Sedimentation Rate GREATER THAN 140 Prothrombin Time 10.0 Prothromb Time International Ratio 1.0 Activated Partial Thromboplast Time 26.7 Blood Urea Nitrogen 19 Creatinine 1.66 Random Glucose 67 Total Protein 8.2 Albumin 2.3 Calcium Level 9.8 Magnesium Level 1.7 Alkaline Phosphatase 179 Aspartate Amino Transf (AST/SGOT) 18 Alanine Aminotransferase (ALT/SGPT) 16 Total Bilirubin 0.1 Sodium Level 139 Potassium Level 3.7 Chloride Level 107 Carbon Dioxide Level 21.9 Anion Gap 10 Estimat Glomerular Filtration Rate 56 Lactic Acid Level 1.7 C-Reactive Protein 13.30 Date/Time Source Procedure Growth Status 01/04/18 12:40 Blood Peripheral Aerobic Blood Culture Pending Received 01/04/18 12:40 Blood Peripheral Anaerobic Blood Culture Pending Received 01/04/18 12:30 Wound Foot Gram Stain - Final Resulted 01/04/18 12:30 Wound Foot Wound Culture Pending Resulted Result Diagram: 01/04/18 1235 01/04/18 1235 Imaging Last Impressions Foot X-Ray 01/04/18 0000 Signed Impressions: Service Date/Time: Thursday, January 04, 2018 12:43 - CONCLUSION: Negative for acute process. Antonio Cole MD FACR Caprini VTE Risk Assessment Caprini VTE Risk Assessment: Mod/High Risk (score >= 2) VTE Pharm Contraindication: for procedure Caprini Risk Assessment Model Point Value = 1 Point Value = 2 Point Value = 3 Point Value = 5 Age 41-60 Minor surgery BMI > 25 kg/m2 Swollen legs Varicose veins or History of unexplained or recurrent spontaneous Oral contraceptives or hormone replacement Sepsis (< 1 month) Serious lung disease, including pneumonia (< 1 month) Abnormal pulmonary function Acute myocardial infarction Congestive heart failure (< 1 month) History of inflammatory bowel disease Medical patient at bed rest Age 61-74 Arthroscopic surgery Major open surgery (> 45 min) Laparoscopic surgery (> 45 min) Malignancy Confined to bed (> 72 hours) Immobilizing plaster cast Central venous access Age >= 75 History of VTE Family history of VTE Factor V Leiden Prothrombin [id number] Lupus anticoagulant Anticardiolipin antibodies Elevated serum homocysteine Heparin-induced thrombocytopenia Other congenital or acquired thrombophilia Stroke (< 1 month) Elective arthroplasty Hip, pelvis, or leg fracture Acute spinal cord injury (< 1 month) Prophylaxis Regimen Total Risk Factor Score Risk Level Prophylaxis Regimen 0-1 Low Early ambulation 2 Moderate Order ONE of the following: *Sequential Compression Device (SCD) *Heparin 5000 units SQ BID 3-4 Higher Order ONE of the following medications: *Heparin 5000 units SQ TID *Enoxaparin/Lovenox 40 mg SQ daily (WT < 150 kg, CrCl > 30 mL/min) *Enoxaparin/Lovenox 30 mg SQ daily (WT < 150 kg, CrCl > 10-29 mL/min) *Enoxaparin/Lovenox 30 mg SQ BID (WT < 150 kg, CrCl > 30 mL/min) AND/OR *Sequential Compression Device (SCD) 5 or more Highest Order ONE of the following medications: *Heparin 5000 units SQ TID (Preferred with Epidurals) *Enoxaparin/Lovenox 40 mg SQ daily (WT < 150 kg, CrCl > 30 mL/min) *Enoxaparin/Lovenox 30 mg SQ daily (WT < 150 kg, CrCl > 10-29 mL/min) *Enoxaparin/Lovenox 30 mg SQ BID (WT < 150 kg, CrCl > 30 mL/min) AND *Sequential Compression Device (SCD) Assessment and Plan Assessment and Plan 42-year-old male Sepsis secondary to diabetic right foot infection with dry gangrene 4th digit with possible abscess on exam and possible underlying OM Peripheral vascular disease get a CT to rule out possible abscess and osteomyelitis. Elevated ESR and CRP IV vancomycin 1 gm q 12 - consult pharmacy Cefepime 2 gm q 12 - for gram negative coverage Podiatry consult for further evaluation may need IND or even amputation. CT angiogram was requested by vascular surgery We will keep n.p.o. post midnight for possible procedure- will need I and D if + abscess, possibly transmetatarsal amputation or possible BKA- based on CTA Vascular surgery consulted wound care team consult prn pain meds- Percocet q 6 - with pain scale Hypertension. Continue lisinopril 10 mg p.o. daily get CXR/EKG Diabetes type 2 Check fingersticks 3 times daily and record. diabetes education. Check hemoglobin A1c. Hold Metformin- for CTA studies Sliding scale 3 times a day and record with coverage Acute kidney injury - likely with underlying diabetic nephropathy start NS 7o cc/hr ff BMP post CTA. Hold Metformin Diabetic neuropathy Continue on gabapentin 300 mg 3 times a day Hypertension Continue on lisinopril 10 mg daily Microcytic anemia denies any melena or hematochezia check iron studies Smoker. Counseled Keep NPO post midnight for possible procedure Lovenox for DVT prophylaxis- will hold for now- will likely have a procedure tomorrow- I and D after evaluated by Podiatry Protonix 20 mg daily for GI prophylaxis Physician Certification 2 Midnight Certification Type: Admission for Inpatient Services Order for Inpatient Services The services are ordered in accordance with Medicare regulations or non- Medicare payer requirements, as applicable. In the case of services not specified as inpatient-only, they are appropriately provided as inpatient services in accordance with the 2-midnight benchmark. Estimated LOS (days): 3 days is the estimated time the patient will need to remain in the hospital, assuming treatment plan goals are met and no additional complications. Post-Hospital Plan: Not yet determined Jacquelin Gutierrez MD January 04, 2018 17:23
[2018-01-04] MEDS ORDERED: DEXTROSE 50% IN WATER 50 ML VIAL(D50) IV PUSH PRN (17:45)
[2018-01-04] MEDS ORDERED: GLUCAGON 1 MG/ML VIAL OTHER PRN (17:45)
[2018-01-04] MEDS ORDERED: oxyCODONE/ACETAMINOPHEN 5 MG/325 MG TAB PO PRN (18:00)
[2018-01-04] MEDS ORDERED: Vancomycin Consult Pharmacy 1 EA OTHER SCH (18:00)
[2018-01-04] MEDS: CEFEPIME INJ 2,000 MG in SODIUM CHLORIDE 0.9% INJ 100 ML IV SCH (18:00)
--- NOTE | 2018-01-04 18:07 | RADRPT ---
EXAM DATE/TIME: 01/04/2018 17:37 [facility] COMPARISON: FOOT RIGHT COMPLETE ([id number]), January 04, 2018, 12:43. INDICATIONS : Right foot abscess RADIATION DOSE: 7.29 CTDIvol (mGy) MEDICAL HISTORY : Hypertension. Diabetes SURGICAL HISTORY : None. ENCOUNTER: Initial ACUITY: 1 day PAIN SCALE: 2/10 LOCATION: Right Foot TECHNIQUE: Volumetric scanning of the foot was performed. Using automated exposure control and adjustment of th e mA and/or kV according to patient size, radiation dose was kept as low as reasonably achievable to obtain optimal diagnostic quality images. DICOM format image data is available electronically for re view and comparison. FINDINGS: There is diffuse soft tissue edema in the mid and proximal forefoot. There is a dorsal soft tissue de fect in the lateral proximal forefoot with small foci of subcutaneous air extending to the fourth dig it. The subcutaneous air extends to the periosteal surface although the underlying osseous structures appear intact without definite erosive change. There is also no significant periosteal reaction. No focal drainable fluid collections are noted. CONCLUSION: 1. Soft tissue ulcer in the lateral proximal forefoot with subcutaneous air extending to the base of the fourth digit. No definite osseous abnormality to suggest osteomyelitis. Consider MRI examination if there is continued clinical concern. Giorgi Rider MD on January 04, 2018 at 17:56 Board Certified Radiologist. This report was verified electronically.
[2018-01-04] MEDS: GABAPENTIN 300 MG CAP PO SCH (18:17)
[2018-01-04] MEDS: oxyCODONE/ACETAMINOPHEN 7.5 MG/325 MG TAB PO PRN (18:27)
[2018-01-04 20:00] VITALS: BP 136/78; PULSE 89; RESP 18; TEMP 98.2; O2SAT 97
[2018-01-04] MEDS ORDERED: PIPERACIL-TAZO 3.375 GM PREMIX 50 ML IV SCH (20:00)
[2018-01-04] MEDS: INSULIN ASPART SUPPLEMENTAL SCALE SQ SCH (21:00)
[2018-01-04] MEDS ORDERED: ZOLPIDEM TARTRATE 5 MG TAB PO ONE (22:15)
[2018-01-05] VITALS: BP 168/89; PULSE 63; RESP 18; TEMP 97.9; O2SAT 99
[2018-01-05] MEDS: oxyCODONE/ACETAMINOPHEN 7.5 MG/325 MG TAB PO PRN ×4 (00:53→20:56)
[2018-01-05] MEDS: VANCOMYCIN INJ 1,250 MG in SODIUM CHLOR 0.9% 250 ML INJ 250 ML IV SCH ×2 (00:55→13:47)
[2018-01-05 04:00] VITALS: BP 154/93; PULSE 83; RESP 18; TEMP 98.4; O2SAT 97
[2018-01-05] MEDS: SODIUM CHLOR 0.9% 1000 ML INJ 1,000 ML IV SCH ×2 (05:18→10:40)
[2018-01-05] MEDS ORDERED: VANCOMYCIN INJ 1,000 MG in SODIUM CHLOR 0.9% 250 ML INJ 250 ML IV SCH (06:00)
[2018-01-05] MEDS: CEFEPIME INJ 2,000 MG in SODIUM CHLORIDE 0.9% INJ 100 ML IV SCH (06:04)
[2018-01-05 06:24] LABS: AUTOMATED NEUTROPHIL # 10.3 TH/MM3 (1.8-7.7); BASOPHIL # 0.1 TH/MM3 (0-0.2); BASOPHIL % 0.5 % (0.0-2.0); EOSINOPHIL # 0.2 TH/MM3 (0-0.4); EOSINOPHIL % 1.5 % (0.0-4.0); HEMATOCRIT 26.3 % (39.0-51.0); HEMOGLOBIN 8.8 GM/DL (13.0-17.0); LYMPH % 14.9 % (9.0-44.0); MEAN CELL VOLUME 75.4 FL (80.0-100.0); MEAN CORPUSCULAR HEMOGLOBIN 25.1 PG (27.0-34.0); MEAN CORPUSCULAR HGB CONC 33.3 % (32.0-36.0); MEAN PLATELET VOLUME 7.7 FL (7.0-11.0); MONO % 8.1 % (0.0-8.0); MONOCYTE # 1.1 TH/MM3 (0-0.9); PLATELET COUNT 439 TH/MM3 (150-450); RED BLOOD COUNT 3.49 MIL/MM3 (4.50-5.90); RED CELL DISTRIBUTION WIDTH 14.3 % (11.6-17.2); WHITE BLOOD COUNT 13.7 TH/MM3 (4.0-11.0)
[2018-01-05 07:44] LABS: BLOOD UREA NITROGEN 17 MG/DL (7-18); CALCIUM 8.9 MG/DL (8.5-10.1); CHLORIDE 110 MEQ/L (98-107); CREATININE 1.33 MG/DL (0.60-1.30); GLOMERULAR FILTRATION RATE 72 ML/MIN (>89); GLUCOSE,RANDOM 129 MG/DL (74-106); SODIUM (NA) 141 MEQ/L (136-145)
[2018-01-05 07:45] LABS: BICARBONATE 23.5 MEQ/L (21.0-32.0); CHOLESTEROL 166 MG/DL (120-200); CHOLESTEROL/ HDL RATIO 6.01 RATIO; FERRITIN 259 NG/ML (26-388); HDL CHOLESTEROL 27.6 MG/DL (40.0-60.0); IRON (FE) 27 MCG/DL (65-175); LDL CHOLESTEROL 102 MG/DL (0-99); TRIGLYCERIDES 180 MG/DL (42-150)
[2018-01-05] MEDS: INSULIN ASPART SUPPLEMENTAL SCALE SQ SCH ×4 (08:00→20:58)
[2018-01-05 08:15] VITALS: BP 188/93; PULSE 88; RESP 18; TEMP 97.8; O2SAT 98
[2018-01-05 08:16] LABS: % SATURATION IRON PROFILE 15.7 % (20-50); TOTAL IRON BINDING CAPACITY 172 MCG/DL (250-450)
--- NOTE | 2018-01-05 08:40 | MB ---
cc: Masoud Gaets DPM DATE: 01/05/2018 REASON FOR CONSULTATION: Right diabetic foot infection, gangrene. FINDINGS: Right fourth digit. HISTORY OF PRESENT ILLNESS: This is a 43-year-old male who was seen by a primary care doctor for a blister. He initially was told it was gout and he was placed on Bactrim. He continued to have worsening of his foot and then started developing a foul smelling yellowish discharge. The patient was then sent by the primary for further management. Currently, I am seeing the patient bedside. He appears to have some malaise. He appears to be awake though without significant difficulty. PAST MEDICAL HISTORY: Hypertension, diabetes, neuropathy. PAST SURGICAL HISTORY: Right ankle surgery, fracture post fall 14 years ago. Wrist fracture surgery. MEDICATIONS: 1. Metformin. 2. Gabapentin. 3. Lisinopril. INPATIENT MEDICATIONS: Reviewed. He is receiving vancomycin and Zosyn. ALLERGIES: NONE LISTED. PHYSICAL EXAMINATION: VITAL SIGNS: Temperature 98.4, pulse rate 83, respiratory rate 18, blood pressure 154/93, saturating 97% on room air. This is a 106 kilogram male seen bedside exhibiting nonlabored respirations. He is verbal and appropriate. EXTREMITIES: Bilateral lower extremities. Right lower extremity, there is noted to be stable, gangrenous changes to the dorsal aspect of the fourth digit with an ischemic bulla blister with fluctuance and odor over the dorsum of the foot. The foot from the calf down appears to be slightly cool. Pulses are very hard to palpate. Capillary fill time is not intact of the fourth digit, but the remaining digits appear to have good or a stable capillary fill time. There is decreased sensation to light touch. There is good range of motion of the bilateral ankle. Left foot is free from any obvious ulcer; however, it appears to be slightly cool from the calf down. Pulses diminished as well. LABORATORY DATA: White blood cell 13.7, hemoglobin and hematocrit 8 and 26, platelet count is 439. ESR greater than 140. Chem-7: Sodium 141, potassium 4.4, chloride 110, CO2 23.5, BUN 17, creatinine 1.3. Hemoglobin A1c is pending. Random glucose 129. Coagulation profile: PT 10, INR 1.0. IMAGING FINDINGS: X-ray foot, negative for acute process. CT soft tissue ulcer at the lateral proximal forefoot with subcutaneous air extending to the base of the fourth digit. No definitive osseous abnormalities to suggest osteomyelitis. ASSESSMENT: Right diabetic foot infection, fourth digit gangrene, likely a gas-producing organism within the foot. PLAN: Discussed with Dr. Cullen. We wished to eradicate or at least debulked the infection before moving forward with a vascular intervention. I educated the patient on the severity of the foot infection that this is limb threatening. He wished for all limb salvage efforts to take place. My plan is surgery today, hopefully vascular surgery within the next 1-2 days, the patient overall at this point has a poor prognosis given the extent of the infection. He may need multiple staged procedures. Masoud Gates DPM DBM/DL , 08:21 AM , 08:40 AM
--- NOTE | 2018-01-05 09:32 | RADRPT ---
EXAM DATE/TIME: 01/05/2018 09:18 [facility] COMPARISON: FOOT RIGHT COMPLETE ([id number]), January 04, 2018, 12:43. INDICATIONS : Evaluate for pneumonia, pneumothorax, and communicable diseases. Pre-op right foot surgery for ulcer. MEDICAL HISTORY : Hypertension. Diabetes SURGICAL HISTORY : None. ENCOUNTER: Subsequent ACUITY: 2 days PAIN SCORE: 0/10 LOCATION: Bilateral chest FINDINGS: PA and lateral views of the chest demonstrate the lungs to be symmetrically aerated without evidence of mass, infiltrate or effusion. The cardiomediastinal contours are unremarkable. Osseous structure s are intact. CONCLUSION: 1. No acute cardiopulmonary findings. Fausto Cole MD on January 05, 2018 at 9:28 Board Certified Radiologist. This report was verified electronically.
--- NOTE | 2018-01-05 09:34 | EKG ---
Date Performed: 01/04/2018 Time Performed: 19:08:30 PTAGE: 42 years EKG: Sinus rhythm WITH OCCASIONAL SUPRAVENTRICULAR PREMATURE COMPLEXES NONSPECIFIC T-WAVE ABNORMALITY BORDERLINE ECG NO PREVIOUS TRACING DOCTOR: Maria Antoine Interpretating Date/Time 01/05/2018 09:33:46
[2018-01-05] MEDS: GABAPENTIN 300 MG CAP PO SCH ×3 (09:52→16:39)
[2018-01-05] MEDS: LISINOPRIL 10 MG TAB PO SCH (09:52)
[2018-01-05] MEDS: PANTOPRAZOLE SOD 20 MG DELAYED RELEASE TAB PO SCH (09:52)
[2018-01-05] MEDS: MORPHINE SULFATE 4 MG/ML INJ IV PUSH PRN (10:42)
--- NOTE | 2018-01-05 11:44 | PD.VS.PN ---
Subjective Subjective/Hospital Course Pain controlled LE warm w/ motor intact R LE wound stable Objective Vitals/I&O Date Time Temp Pulse Resp B/P (MAP) Pulse Ox O2 Delivery O2 Flow Rate FiO2 01/05/18 08:15 97.8 88 18 188/93 (124) 98 01/05/18 04:00 98.4 83 18 154/93 (113) 97 01/05/18 01:53 18 01/05/18 00:00 97.9 63 18 168/89 (115) 99 01/04/18 20:00 98.2 89 18 136/78 (97) 97 01/04/18 16:25 97.6 80 18 167/86 (113) 99 01/04/18 16:03 77 18 148/75 (99) 100 Room Air 01/04/18 12:40 98 Room Air 01/05/18 01/05/18 01/05/18 07:00 15:00 23:00 Intake Total 620 ml Balance 620 ml Physical Exam Palpable R/L Femoral pulses Non palpable R/L DP Faint R/L DP heard via Doppler Biphasic R/L PT heard via Doppler LE warm w/ motor intact Gangrenous ulceration to R foot present w/o odor/swelling/erythema Laboratory Laboratory Tests Test 01/04/18 12:35 01/05/18 05:25 White Blood Count 18.9 13.7 Red Blood Count 4.20 3.49 Hemoglobin 10.5 8.8 Hematocrit 31.6 26.3 Mean Corpuscular Volume 75.3 75.4 Mean Corpuscular Hemoglobin 25.1 25.1 Mean Corpuscular Hemoglobin Concent 33.3 33.3 Red Cell Distribution Width 14.5 14.3 Platelet Count 545 439 Mean Platelet Volume 7.5 7.7 Neutrophils (%) (Auto) 75.7 75.0 Lymphocytes (%) (Auto) 15.3 14.9 Monocytes (%) (Auto) 7.8 8.1 Eosinophils (%) (Auto) 0.9 1.5 Basophils (%) (Auto) 0.3 0.5 Neutrophils # (Auto) 14.3 10.3 Lymphocytes # (Auto) 2.9 2.0 Monocytes # (Auto) 1.5 1.1 Eosinophils # (Auto) 0.2 0.2 Basophils # (Auto) 0.1 0.1 CBC Comment DIFF FINAL DIFF FINAL Differential Comment Erythrocyte Sedimentation Rate GREATER THAN 140 Prothrombin Time 10.0 Prothromb Time International Ratio 1.0 Activated Partial Thromboplast Time 26.7 Blood Urea Nitrogen 19 17 Creatinine 1.66 1.33 Random Glucose 67 129 Total Protein 8.2 Albumin 2.3 Calcium Level 9.8 8.9 Magnesium Level 1.7 Alkaline Phosphatase 179 Aspartate Amino Transf (AST/SGOT) 18 Alanine Aminotransferase (ALT/SGPT) 16 Total Bilirubin 0.1 Sodium Level 139 141 Potassium Level 3.7 4.4 Chloride Level 107 110 Carbon Dioxide Level 21.9 23.5 Anion Gap 10 8 Estimat Glomerular Filtration Rate 56 72 Lactic Acid Level 1.7 C-Reactive Protein 13.30 Iron Level 27 Total Iron Binding Capacity 172 Percent Iron Saturation 15.7 Ferritin 259 Triglycerides Level 180 Cholesterol Level 166 LDL Cholesterol 102 HDL Cholesterol 27.6 Cholesterol/HDL Ratio 6.01 Date/Time Source Procedure Growth Status 01/04/18 12:40 Blood Peripheral Aerobic Blood Culture - Preliminary NO GROWTH IN 1 DAY Resulted 01/04/18 12:40 Blood Peripheral Anaerobic Blood Culture - Preliminary NO GROWTH IN 1 DAY Resulted 01/04/18 12:30 Wound Foot Gram Stain - Final Resulted 01/04/18 12:30 Wound Foot Wound Culture Pending Resulted Imaging Last 48 hours Impressions Chest X-Ray 01/05/18 0600 Signed Impressions: Service Date/Time: Friday, January 05, 2018 09:18 - CONCLUSION: 1. No acute cardiopulmonary findings. Fausto Cole MD Lower Extremity CT 01/04/18 0000 Signed Impressions: Service Date/Time: Thursday, January 04, 2018 17:37 - CONCLUSION: 1. Soft tissue ulcer in the lateral proximal forefoot with subcutaneous air extending to the base of the fourth digit. No definite osseous abnormality to suggest osteomyelitis. Consider MRI examination if there is continued clinical concern. Giorgi Rider MD Foot X-Ray 01/04/18 0000 Signed Impressions: Service Date/Time: Thursday, January 04, 2018 12:43 - CONCLUSION: Negative for acute process. Antonio Cole MD FACR Assessment and Plan Assessment: (1) Peripheral vascular disease Status: Acute (2) Diabetic foot infection Status: Acute Plan Plan Pt to OR w/ Podiatry this afternoon Pt scheduled for a R LE angiogram and possible endovascular intervention tomorrow (WED). NPO after MN Continue Broad antibiotics Consent obtained and placed in the chart Kasey Caldwell NP [facility] [phone] Kasey Caldwell January 05, 2018 11:44
[2018-01-05] MEDS ORDERED: ePHEDrine/NS 25 MG/5 ML SYRINGE IV ONE (12:00)
[2018-01-05] MEDS ORDERED: DEXAMETHASONE SOD PHOS 4 MG/ML VIAL IV ONE (12:00)
[2018-01-05] MEDS ORDERED: PHENYLEPH/NS 1000 MCG/10 ML SYR IV ONE (12:00)
[2018-01-05] MEDS ORDERED: ONDANSETRON HCL 4 MG/2 ML VIAL IV ONE (12:00)
--- NOTE | 2018-01-05 12:21 | PD.WCN.NOT ---
Wound Consult Additional Information: Patient not seen, Patient is being followed by podiatry,Doctor Yajaira and now Vascular surgery, Doctor Alyse, with plans for surgical intervention tomorrow. Please defer to Podiatry and Vascular surgery for orders with R foot wound. Jerica Ferreira [facility] January 05, 2018 12:21
--- NOTE | 2018-01-05 12:58 | HHI.PR ---
Subjective Remarks Nursing reports patient having substantial pain. Otherwise no other medical deterioration since last night. Patient denies ever being put on a cholesterol medication in the past. Objective Vital Signs Date Time Temp Pulse Resp B/P (MAP) Pulse Ox O2 Delivery O2 Flow Rate FiO2 01/05/18 08:15 97.8 88 18 188/93 (124) 98 01/05/18 04:00 98.4 83 18 154/93 (113) 97 01/05/18 01:53 18 01/05/18 00:00 97.9 63 18 168/89 (115) 99 01/04/18 20:00 98.2 89 18 136/78 (97) 97 01/04/18 16:25 97.6 80 18 167/86 (113) 99 01/04/18 16:03 77 18 148/75 (99) 100 Room Air I/O 01/04/18 01/04/18 01/04/18 01/05/18 01/05/18 01/05/18 07:00 15:00 23:00 07:00 15:00 23:00 Intake Total 435 ml 620 ml Balance 435 ml 620 ml Intake Oral 360 ml 620 ml IV Total 75 ml # Voids 1 # Bowel Movements 1 Result Diagram: 01/05/18 0525 01/05/18 0525 Objective Remarks Right foot with dorsal aspect ulcer about the size of a golf ball, no denilson tenderness to palpation on the dorsum of midfoot, however he has substantial tenderness to palpation on the ball of his foot on the plantar aspect, has decrease sensation to light touch over the anterior tips of his toes Lying in bed, awake, alert, no acute distress A/P Assessment and Plan 42-year-old male Sepsis secondary to diabetic right foot infection with dry gangrene 4th digit with possible abscess on exam and possible underlying OM -Blood cultures pending, see treatment below Suspected dry gangrene -Discussed with infectious disease, needs anaerobic and aerobic coverage, continue vancomycin and Zosyn -Podiatry plans for debridement today Peripheral vascular disease -Vascular surgery plans intervention sometime after podiatry debridement -start Lipitor -Baby aspirin Acute kidney injury - improving w/ IVF -BMP in AM Microcytic anemia -Show substantial iron deficiency, will start Venofer, obtain Hemoccult 3 Diabetes type 2 -Hold metformin for now, sliding scale with Accu-Chek Diabetic neuropathy -Continue on gabapentin Hypertension. -Continue lisinopril -I independently reviewed the previously ordered EKG, appears to be sinus rhythm No pharmacological anticoagulation at this time given impending surgery, SCD on left lower extremity only given pathology on right lower external Luis Mcnair MD January 05, 2018 12:58
[2018-01-05 13:00] VITALS: BP 135/83; PULSE 87; RESP 18; TEMP 98; O2SAT 97
[2018-01-05] MEDS: PIPERACIL-TAZO 3.375 GM PREMIX 50 ML IV SCH ×2 (14:00→20:57)
[2018-01-05] MEDS: IRON SUCROSE INJ 200 MG in SODIUM CHLORIDE 0.9% INJ 100 ML IV SCH (15:00)
[2018-01-05 15:53] LABS: HEMOGLOBIN A1C 14.3 % (4.3-6.0)
[2018-01-05] MEDS ORDERED: BUPIVACAINE HCL PF 0.25% 30 ML VIAL ONE (16:45)
--- NOTE | 2018-01-05 16:54 | PD.ID.CON ---
History of Present Illness Service ID Consult Requested By Dr Chavez Reason for Consult R foot DFI Primary Care Physician Vivek Clifford DO Diagnoses: History of Present Illness 42 yo male with poorly controlled Dm, admits his BS at home in 300-400 range presented with worsening wound of R foot It started about 1-2 weeks ago He failed o/p Bactrim He endorses fever On presentation afebrile, WBC is 18 K no lactic acidosis palin films and CT did not show osteo + heavy tobacco Review of Systems Except as stated in HPI: all other systems reviewed are Neg Past Family Social History Allergies: Coded Allergies: No Known Allergies (Verified Adverse Reaction, Unknown, 01/04/18) Past Medical History Hypertension Diabetes type 2 insulin requiring at one point Neuropathy Past Surgical History Right ankle surgery secondary to fracture status post fall at 15 years of age Wrist surgery secondary to fracture Active Ordered Medications Medications where reviewed in EMR Antibiotics Include: cefpime vancomycin Family History Both parents have hypertension and diabetes Social History Social History Half pack per day smoker Denies alcohol or recreational drug use Physical Exam Vital Signs Vital Signs Date Time Temp Pulse Resp B/P (MAP) Pulse Ox O2 Delivery O2 Flow Rate FiO2 01/05/18 13:00 98.0 87 18 135/83 (100) 97 01/05/18 08:15 97.8 88 18 188/93 (124) 98 01/05/18 04:00 98.4 83 18 154/93 (113) 97 01/05/18 01:53 18 01/05/18 00:00 97.9 63 18 168/89 (115) 99 01/04/18 20:00 98.2 89 18 136/78 (97) 97 Physical Exam CONSTITUTIONAL/GENERAL: This is an adequately nourished patient, in no apparent distress. TUBES/LINES/DRAINS: SKIN: No jaundice, rashes, or lesions. Skin temperature appropriate. Not diaphoretic. HEAD: Atraumatic. Normocephalic. EYES: Pupils equal and round and reactive. Extraocular motions intact. No scleral icterus. No injection or drainage. Fundi not examined. ENT: Hearing grossly normal. Nose without bleeding or purulent drainage. Throat without visible erythema, exudates, masses, or lesions. NECK: Trachea midline. Supple, nontender. No palpable thyroid enlargement or nodularity. CARDIOVASCULAR: Regular rate and rhythm without murmurs, gallops, or rubs. No JVD. Peripheral pulses symmetric. RESPIRATORY/CHEST: Symmetric, unlabored respirations. Clear to auscultation. Breath sounds equal bilaterally. No wheezes, rales, or rhonchi. GASTROINTESTINAL: Abdomen soft, non-tender, nondistended. No hepato-splenomegaly , or palpable masses. No guarding. Bowel sounds present. GENITOURINARY: Without palpable bladder distension. MUSCULOSKELETAL: Extremities without clubbing, cyanosis, or edema. Pedal pulses not palpable on either foot + loss of skin appendages Gangrenous changes of R $ th toe - black Wound over 4 th MT with dry foul smelling eschar No joint tenderness or effusion noted. No calf tenderness. No mottling or clubbing. LYMPHATICS: No palpable cervical or supraclavicular adenopathy. + inguinal adenopathy ipsilateral NEUROLOGICAL: Awake and alert. Motor and sensory grossly within normal limits. Follows commands. Cognitively sharp. Moves all extremities. PSYCHIATRIC: No obvious anxiety/depression. no apparent hallucinations or other psychotic thought process. Laboratory Laboratory Tests Test 01/05/18 05:25 White Blood Count 13.7 Red Blood Count 3.49 Hemoglobin 8.8 Hematocrit 26.3 Mean Corpuscular Volume 75.4 Mean Corpuscular Hemoglobin 25.1 Mean Corpuscular Hemoglobin Concent 33.3 Red Cell Distribution Width 14.3 Platelet Count 439 Mean Platelet Volume 7.7 Neutrophils (%) (Auto) 75.0 Lymphocytes (%) (Auto) 14.9 Monocytes (%) (Auto) 8.1 Eosinophils (%) (Auto) 1.5 Basophils (%) (Auto) 0.5 Neutrophils # (Auto) 10.3 Lymphocytes # (Auto) 2.0 Monocytes # (Auto) 1.1 Eosinophils # (Auto) 0.2 Basophils # (Auto) 0.1 CBC Comment DIFF FINAL Differential Comment Blood Urea Nitrogen 17 Creatinine 1.33 Random Glucose 129 Calcium Level 8.9 Sodium Level 141 Potassium Level 4.4 Chloride Level 110 Carbon Dioxide Level 23.5 Anion Gap 8 Estimat Glomerular Filtration Rate 72 Iron Level 27 Total Iron Binding Capacity 172 Percent Iron Saturation 15.7 Ferritin 259 Triglycerides Level 180 Cholesterol Level 166 LDL Cholesterol 102 HDL Cholesterol 27.6 Cholesterol/HDL Ratio 6.01 Date/Time Source Procedure Growth Status 01/04/18 12:40 Blood Peripheral Aerobic Blood Culture - Preliminary NO GROWTH IN 1 DAY Resulted 01/04/18 12:40 Blood Peripheral Anaerobic Blood Culture - Preliminary NO GROWTH IN 1 DAY Resulted 01/04/18 12:30 Wound Foot Gram Stain - Final Resulted 01/04/18 12:30 Wound Culture - Preliminary Staphylococcus Aureus Group D Enterococcus Resulted Result Diagram: 01/05/18 0525 01/05/18 0525 Imaging Last Impressions Chest X-Ray 01/05/18 0600 Signed Impressions: Service Date/Time: Friday, January 05, 2018 09:18 - CONCLUSION: 1. No acute cardiopulmonary findings. Fausto Cole MD Lower Extremity CT 01/04/18 0000 Signed Impressions: Service Date/Time: Thursday, January 04, 2018 17:37 - CONCLUSION: 1. Soft tissue ulcer in the lateral proximal forefoot with subcutaneous air extending to the base of the fourth digit. No definite osseous abnormality to suggest osteomyelitis. Consider MRI examination if there is continued clinical concern. Giorgi Rider MD Foot X-Ray 01/04/18 0000 Signed Impressions: Service Date/Time: Thursday, January 04, 2018 12:43 - CONCLUSION: Negative for acute process. Antonio Cole MD FACR Assessment and Plan Assessment and Plan DFI, suspected osteomyelitis of R foot ? underlyiving vascular insufficiency cont broad spectrum abx MRi of R foot vascular w/u Discussed Condition With pt his over the phone family @ b/s Janeen Bolanos MD January 05, 2018 16:54
[2018-01-05] MEDS ORDERED: NEOMYCIN/POLYMYXIN 1 ML G.U. IRRIGANT ONE (16:55)
[2018-01-05] MEDS ORDERED: ACETAMINOPHEN 1000 MG/100 ML 100 ML IV ONE (18:17)
[2018-01-05] MEDS ORDERED: POVIDONE IODINE 5% (ANTISEPSIS KIT) 4 APPLICATIONS EACH NARE PRN (18:45)
[2018-01-05] MEDS ORDERED: CHLORHEXIDINE GLUCONATE 2 % 1 PACK (2 CLOTHS) TOPICAL PRN (18:45)
[2018-01-05] MEDS ORDERED: LACTATED RINGER'S 1000 ML IV PRN (18:45)
[2018-01-05] MEDS ORDERED: SODIUM CHLORID 0.9% 500 ML IV PRN (18:45)
--- NOTE | 2018-01-05 19:20 | HHI.PR ---
Immediate Post Op Note Procedure Date: January 05, 2018 Pre Op Diagnosis: Right 4th digit gangrene, abscess, DM foot infection Post Op Diagnosis: same Surgeon: Masoud Wu Software Qa Manager(s): scrub Procedure: Right 4th digit amputation, incision drainage deep right foot Findings: minimal bleeding Complications: none Specimen(s) removed: 4th digit for path deep cx at amp site Estimated blood loss: less 10mL Anesthesia: General Drains: None Patient to: Other Patient Condition: Fair Implant/Devices: SEE IMPLANT LOG (if applicable) Date/Time of Procedure: SEE SURGICAL CARE RECORD Masoud WuM January 05, 2018 19:20
[2018-01-05] MEDS ORDERED: MIDAZOLAM HCL 2 MG/2 ML VIAL ONE (19:26)
--- NOTE | 2018-01-05 19:38 | MP ---
cc: Masoud Gates DPM DATE OF OPERATION: 01/05/2018 PREOPERATIVE DIAGNOSIS: Right fourth digit gangrene, abscess, diabetic foot infection. POSTOPERATIVE DIAGNOSIS: Right fourth digit gangrene, abscess, diabetic foot infection. PROCEDURE PERFORMED: Right fourth digit amputation, incision and drainage deep, right foot. INTRAOPERATIVE FINDINGS: Minimal bleeding. Foul odor at level of amputation site. S SPECIMENS: Fourth digit for pathology. Deep culture at amputation site for micro. ESTIMATED BLOOD LOSS: Less than 30 mL ANESTHESIA: General. DRAINS: None. TOURNIQUET: None. DISPOSITION: Returned to floor for vascular intervention and monitor of foot. May need wound VAC versus repetitive debridements versus amputation at a later date. JUSTIFICATION FOR PROCEDURE: A 42-year-old diabetic male with a history of smoking, was admitted. CT showed gas within the tissue at the base of the fourth digit. The patient was planned for vascular intervention; however, we wished to eradicate infection or at least debulk the infection first. The patient was educated on risks and benefits, need for more surgery, loss of limb. No guarantees were given or implied regarding the outcome. PROCEDURE IN DETAIL: Under mild sedation, the patient was brought into the operating room, placed on the operating table in supine position. Following the induction of general anesthesia, the patient's right lower extremity was scrubbed, prepped and draped in the usual aseptic fashion. The foot was elevated and examined. There was noted to be a necrotic, delayed capillary fill time, a putrid-smelling right fourth digit. A fishmouth mouth type incision was made disarticulating the digit down to the level of the joint. There were gas bubbles within the tissue. There was purulent drainage. There was a full-thickness eschar of the dorsum of the foot that had an odor. This was sharply unroofed down to the tendon sheath with exposed fourth metatarsal. There was no obvious signs of tracking deep within the plantar aspect of the foot or along the dorsal aspect of the foot. This was flushed with copious amounts of normal saline. Minimal Bovie and ligation was needed throughout the case. The wound was packed open, soft bandage applied. The patient was transferred from OR to PACU with all vital signs stable. The patient will be monitored after a vascular attempt. Overall prognosis is poor given the history of smoking and diabetes. I will see the patient within 1-2 days. CHERISE Vee/EMILIA , 07:19 PM , 07:37 PM
[2018-01-05 20:00] VITALS: BP 150/87; PULSE 85; RESP 18; TEMP 97.2; O2SAT 100
[2018-01-05] MEDS ORDERED: DO NOT ADM ANY ANTICOAGULANT DRUGS PRN (20:30)
[2018-01-05] MEDS: ATORVASTATIN 40 MG TAB PO SCH (20:55)
[2018-01-06] VITALS (7 sets, daily range): BP systolic 115–186; BP diastolic 74–107; PULSE 87–97; RESP 18–21; TEMP 97.4–98.8; O2SAT 95–100
[2018-01-06] MEDS: VANCOMYCIN INJ 1,250 MG in SODIUM CHLOR 0.9% 250 ML INJ 250 ML IV SCH ×2 (00:20→13:24)
[2018-01-06] MEDS: MORPHINE SULFATE 4 MG/ML INJ IV PUSH PRN ×2 (00:49→10:51)
[2018-01-06] MEDS: PIPERACIL-TAZO 3.375 GM PREMIX 50 ML IV SCH ×4 (01:29→20:53)
[2018-01-06] MEDS: INSULIN ASPART SUPPLEMENTAL SCALE SQ SCH ×4 (07:45→20:51)
[2018-01-06] MEDS ORDERED: MIDAZOLAM HCL 5 MG/5 ML VIAL ONE (08:04)
[2018-01-06] MEDS ORDERED: HEPARIN-NS/PF FLUSH BAG 2,000 ML IV FLUSH ONE (08:04)
[2018-01-06] MEDS ORDERED: HEPARIN SODIUM - IV 10,000 UNITS/10 ML VIAL ONE (08:29)
[2018-01-06] MEDS: ASPIRIN EC 81 MG TABEC PO SCH (09:00)
[2018-01-06] MEDS: PANTOPRAZOLE SOD 20 MG DELAYED RELEASE TAB PO SCH (09:00)
[2018-01-06] MEDS: GABAPENTIN 300 MG CAP PO SCH ×3 (09:00→17:44)
[2018-01-06] MEDS: LISINOPRIL 10 MG TAB PO SCH (09:00)
--- NOTE | 2018-01-06 09:07 | CATHPROC ---
[facility] HIS Report Study Information Study Number Admission Scheduled Start Study Start [id number] Jan 04 2018 2:19PM 01/06/2018 Jan 06 2018 8:14AM [place] Service Cath Endovascular Study Admit Source Facility Department Emergency department [facility] - [facility] Physician and Clinical Staff Initial Moe Barton Geography Department Chair Luis Antonio Petersen,QUINTEN Recorder Yuan Beaver,RT(R) Recorder Marisol Rosas BSN Scrub Annabelle Yeboah,RT(R) (BS) Procedures Performed Procedure Location (Site) Vessel Name Abdominal Angiogram Abd Aorta (A3) Aorta Angiogram (manual) Popliteal R (R10) Popliteal Angiogram (manual) SFA (right) Femoral Art Angiogram (manual) Tib, Ant. (right) Popliteal RAIL TRANSPORTATION OPERATOR Popliteal R (R10) Popliteal RAIL TRANSPORTATION OPERATOR SFA (right) Femoral Art Wire insertion Fem Art (left) Femoral Art Equipment Time Food Mixer Repairer Description Size Mfg Part Number Used/Scraped [id number] 08:20 ANGIO-DYNAMICS OMNI FLUSH 65CM CATHETER FR 4 Used *[id number] INTRODUCER SET, 08:20 [employer]OOK INC. FR 5 [id number] *[id number] Used MICROPUNCTURE STIFF BALLOON, ADVANCE 35 LP .035 5 [id number] 08:37 COOK/SERVANDO 5 X 20 Used X 20 *[id number] BALLOON, ADVANCE 35 LP .035 5 [id number] 08:43 COOK/SERVANDO 5X8 Used X8 *[id number] CXI-4.0-35-135- 08:31 COOK/SERVANDO CATHETER, FR4 CXI SUPPORT FR 4 Used P-NS-0 *[id number] SHEATH, FR6 ALEJANDRO 1 FLEXOR [id number] 08:28 COOK/SERVANDO FR 6 Used 55CM *[id number] WIRE, GUIDE APPROACH LIBRARY TECHNICIAN [id number] 08:31 COOK/SERVANDO 300CM Used MICROWIRE *[id number] WIRE, OCHOA CURVED GUIDE [id number] 08:30 COOK/SERVANDO 260CM Used 260CM *[id number] WIRE, OCHOA CURVED GUIDE [id number] 08:31 COOK/SERVANDO 260CM Used 260CM *[id number] 08:53 DAIG/[employer]. LÁZARO MEDICAL ANGIOSEAL, FR6 VIP FR 6 Used *[id number] 08:20 Sounder INDUSTRIES PACK, CCL CUSTOM * Used *[id number] TUBING, PRESSURE INJECTION [id number] 08:20 NAMIC PACER 72" Used 72" *[id number] 08:20 NYCOMED OMNIPAQUE, 300 MG, 150ML 150ML [id number] Used 08:20 NYCOMED OMNIPAQUE, 300 MG, 50ML 50ML [id number] Used [id number] 08:20 CADE MEDICAL BLANKET,WARM AIR CCL * Used *[id number] 08:21 TERUMO MEDICAL SHEATH, FR4 TERUMO (10CM) FR 4 Used *[id number] WIRE, ANGLED GLIDE .035 [id number] 08:20 TERUMO MEDICAL/SERVANDO 260CM Used 260CM *[id number] Equipment Model, Serial, Lot Number and Expiration Data Description Model Number Serial Number Lot Number Expiration Date ANGIOSEAL, FR6 VIP [id number] 06-23-2018 BALLOON, ADVANCE 35 LP .035 5 X [id number] 10-12-2020 8 CATHETER, FR4 CXI SUPPORT [id number] 11-13-2020 SHEATH, FR6 ALEJANDRO 1 FLEXOR [id number] 09-22-2020 55CM WIRE, GUIDE APPROACH LIBRARY TECHNICIAN [id number] 02-08-2022 MICROWIRE WIRE, OCHOA CURVED GUIDE [id number] 12-04-2022 260CM WIRE, OCHOA CURVED GUIDE [id number] 12-04-2022 260CM History: Current Medications Medication Dosage/Unit Route Frequency Last Date/Time Taken Glucophage LISINOPRIL NOVOLOG Statins (any) ASA History: Allergies Allergy Reaction No Known Allergies History: Risk Factors Hypertension Yes Cerebrovascular Peripheral Artery Chronic Lung On Dialysis Diabetes Diabetes Therapy Disease Disease Disease History: Stress Tests Stress or Imaging Studies Performed No History: Other Disease Selection Items HTN Labs Hgb (g/dl) Hct (%) RBC (MIL/MM3) WBC (l/cumm) Platelets (thousands) 11.60-17.00 35.00-51.00 4.00-5.90 4.00-11.00 150.00-450.00 8.8 26.3 3.4 13.7 439 Glucose (mg/dl) BUN (mg/dl) Creatinine (mg/dl) BUN:Creatinine (1:x) 74.00-106.00 7.00-18.00 0.50-1.30 10.00-20.00 129 17 1.3 13.1 Na (meq/l) K (meq/l) Cl (meq/l) CO2 (mmol/L) Ca (mg/dl) 136.00-145.00 3.50-5.10 98.00-107.00 21.00-32.00 8.50-10.10 141 4.4 110 23.5 8.9 PT (sec) PTT (sec) INR (PTT:PT) 9.80-11.60 24.30-30.10 0.90-1.10 10 26.7 1 CPK-MB (ng/ML) 0.50-3.60 Not Drawn Medication Medication Total Dose (Bolus/Oral) Medication Total Dosage/Unit 1% XYLOCAINE 20 mL FENTANYL 75 mcg HEPARIN 5000 units VERSED 4 mg Medications (Bolus/Oral) Medication Time Given Dosage/Unit Administered By Reason 1% XYLOCAINE 01/06/2018 8:16:58 AM 20 mL Moe Cullen 20 mL 1% XYLOCAINE given in lab by Moe Cullen in Left Groin via Subcutaneous. Ordered by Moe Cullen. VERSED 01/06/2018 8:18:28 AM 3 mg Luis Antonio Petersen 3 mg VERSED given in lab by Luis Antonio Petersen RN in Right Antecubital via Peripheral IV. Ordered by Moe Leahy. FENTANYL 01/06/2018 8:18:38 AM 75 mcg Luis Antonio Petersen 75 mcg FENTANYL given in lab by Luis Antonio Petersen RN in Right Antecubital via Peripheral IV. Ordered by Moe Cullen. HEPARIN 01/06/2018 8:31:16 AM 5000 units Luis Antonio Petersen 5000 units HEPARIN given in lab by Luis Antonio Petersen RN in Right Antecubital via Peripheral IV. Ordered by Moe Cullen. VERSED 01/06/2018 8:37:50 AM 1 mg Luis Antonio Petersen 1 mg VERSED given in lab by Luis Antonio Petersen RN in Right Antecubital via Peripheral IV. Ordered by Moe Leahy. Medication (Drip) Medication Time Given Dosage/Unit Concentration/Unit Diluent (ml) Soluti on IV Solutions 01/06/2018 8:15:32 AM 0 mL (IV) 500 NaCl .9 IV Solutions given in lab by Ferlitto, Luis Antonio, RN in Right Antecubital via Peripheral IV. Pump/Drip Giovanni w = 20 ml/hr using NaCl .9. Initial Case Assessment Final Case Assessment Cardiovascular HR Rhythm NIBP Chest Pain 90 Sinus 154/93 0 Edema Present Skin color Skin None Normal Warm Dry Circulatory - Right Pulses Femoral 2 Scale (0,1,2,3,4,d) Circulatory - Left Pulses Femoral 2 Scale (0,1,2,3,4,d) Neurological State Oriented to time-place- Alert Moves all extremities person Respiration - General Respiration Rate SpO2 (%) O2 (lpm) (B/min) 10 100 2 Chronological Log Time Study Chronological Log 7:50:00 Patient arrived via Bed. 8:00:44 MD arrived. Vitals capture started with the following parameters, Patient=Adult, Interval=5 min, Initial Pr swxzry=760 mmHg, 8:13:43 Deflation Rate=5 mmHg, Cuff placed on Right Ankle 8:14:05 Patient Name, D.O.B, / Armband Verified By R.N. 8:14:07 Consent signed by the physician and the patient and verified by the [facility] staff. 8:14:07 Pre-op and post- op instructions given; patient acknowledges understanding of instructions. 8:14:08 Verbal Stimulation=2 Physical Stimulation=2 Airway=2 Respiration=2 TOTAL=8. (0=absent, 1=li mited, 2=present) 8:14:09 Presedation assessment performed by [facility] RN. 8:14:13 Patient has been NPO for More than 6Hrs. 8:14:14 Skin Breakdown- right foot wound 8:15:30 Leonard Prominences Protected 8:15:31 A # 20 IV was noted in the Antecubital (right). Grade = 0 IV Solutions given in lab by Luis Antonio Petersen, RN in Right Antecubital via Peripheral IV. Pump/Dr ip Flow = 20 ml/hr using 8:15:32 NaCl .9. 8:15:32 History and physical on the chart or being dictated. 8:15:33 Assessment: Initial Case 8:15:40 Bilateral groins prepped with 2% chlorhexidine, and draped after a 3 minute waiting time. Time Out. Correct patient, correct procedure, correct physician, power injector loaded, or not l oaded with contrast with 8:15:55 surgical team present. Time Out Concurred by MD and individual staff in procedure. 8:15:59 Case Start 8:16:37 HR=95 bpm, PEHQ=688/94 mmhg, JqH4=103.0 %, Resp=19 B/min, Pain=0, Blade=10, Borges=2 8:16:58 20 mL 1% XYLOCAINE given in lab by Moe Cullen in Left Groin via Subcutaneous. Ordered by Moe Cullen. 8:17:20 Access site was Left Femoral Artery. 8:18:28 3 mg VERSED given in lab by Luis Antonio Petersen, RN in Right Antecubital via Peripheral IV. Order ed by Moe Cullen. 8:18:38 75 mcg FENTANYL given in lab by Luis Antonio Petersen, RN in Right Antecubital via Peripheral IV. O rdered by Moe Cullen. 8:19:23 A SHEATH, FR4 TERUMO (10CM) FR 4 was advanced into the Fem Art (left) using the Percutaneous technique. A OMNI FLUSH 65CM CATHETER FR 4 was advanced over a wire. OMNIPAQUE, 300 MG, 150ML 150ML was use d for 8:19:51 injections. 8:21:40 HR=83 bpm, MUQM=372/89 mmhg, SpO2=97.0 %, Resp=12 B/min, Pain=0, Blade=10, Borges=2 8:22:23 Through a OMNI FLUSH 65CM CATHETER FR 4, The Abdominal Aorta was injected with 10 cc's of co ntrast. 8:23:09 A WIRE, ANGLED GLIDE .035 260CM 260CM was inserted via Fem Art (left). 8:23:19 Wire removed 8:23:37 Through a OMNI FLUSH 65CM CATHETER FR 4, The Fem R. Com (R7) was injected with 8 cc's of con trast. 8:23:58 Through a OMNI FLUSH 65CM CATHETER FR 4, The SFA (right) was injected with 8 cc's of contras t. 8:24:46 Through a OMNI FLUSH 65CM CATHETER FR 4, The Popliteal R (R10) was injected with 8 cc's of c ontrast. 8:26:39 HR=89 bpm, OWYX=016/88 mmhg, SpO2=98.0 %, Resp=15 B/min, Pain=0, Blade=10, Borges=2 8:27:08 Through a OMNI FLUSH 65CM CATHETER FR 4, The Tib, Ant. (right) was injected with 8 cc's of c ontrast. 8:27:22 Through a OMNI FLUSH 65CM CATHETER FR 4, The Tib, Post (right) was injected with 8 cc's of c ontrast. 8:29:13 A GABRIELA WOLFF CURVED GUIDE 260CM 260CM was inserted via Fem Art (left). 8:30:41 Catheter was removed A SHEATH, FR6 ALEJANDRO 1 FLEXOR 55CM FR 6 was exchanged in the Fem Art (left). This was necessary i n order to 8:31:04 accomodate a larger catheter. 8:31:16 5000 units HEPARIN given in lab by Luis Antonio Petersen, RN in Right Antecubital via Peripheral IV . Ordered by Moe Cullen. 8:31:38 HR=89 bpm, SCHV=188/95 mmhg, SpO2=98.0 %, Resp=15 B/min, Pain=0, Blade=10, Borges=2 A CATHETER, FR4 CXI SUPPORT FR 4 was advanced over a wire. OMNIPAQUE, 300 MG, 150ML 150ML was us ed for 8:33:34 injections. 8:34:29 Wire removed 8:34:45 A GABRIELA WOLFF CURVED GUIDE 260CM 260CM was inserted via Fem Art (left). 8:36:43 HR=93 bpm, HCTB=087/90 mmhg, SpO2=97.0 %, Resp=27 B/min, Pain=0, Blade=10, Borges=2 8:37:50 1 mg VERSED given in lab by Luis Antonio Petersen, RN in Right Antecubital via Peripheral IV. Order ed by Moe Cullen. A BALLOON, ADVANCE 35 LP .035 5 X 20 5 X 20 was inserted over GABRIELA WOLFF CURVED GUIDE 260CM 260 CM via 8:38:23 the SFA (right). 8:38:38 In the SFA (right) a BALLOON, ADVANCE 35 LP .035 5 X 20 5 X 20 was inflated to 8 atms for 12 0 seconds. 8:41:31 Balloon Removed. 8:41:42 HR=92 bpm, ZNWX=948/97 mmhg, SpO2=99.0 %, Resp=15 B/min, Pain=0, Blade=10, Borges=2 8:41:58 SFA (right) angiogram, manually injected. 8:42:13 Popliteal R (R10) angiogram, manually injected. 8:44:58 Catheter was removed A BALLOON, ADVANCE 35 LP .035 5 X 8 5 X 8 was inserted over WIRE, OCHOA CURVED GUIDE 260CM 260CM via the 8:45:18 Popliteal R (R10). 8:46:19 In the Popliteal R (R10) a BALLOON, ADVANCE 35 LP .035 5 X 8 5 X 8 was inflated to 10 atms for 120 seconds. 8:46:43 HR=91 bpm, VOSS=719/95 mmhg, SpO2=98.0 %, Resp=14 B/min, Pain=0, Blade=10, Borges=2 8:49:16 Balloon Removed. 8:49:18 Popliteal R (R10) angiogram, manually injected. 8:49:53 Tib, Ant. (right) angiogram, manually injected. A CATHETER, FR4 CXI SUPPORT FR 4 was advanced over a wire. OMNIPAQUE, 300 MG, 150ML 150ML was used for 8:50:57 injections. 8:51:19 The previous wire was exchanged for a WIRE, GUIDE APPROACH LIBRARY TECHNICIAN MICROWIRE 300CM. 8:51:44 HR=91 bpm, AWIC=137/106 mmhg, SpO2=99.0 %, Resp=15 B/min, Pain=0, Blade=10, Borges=2 8:55:10 Wire removed 8:56:17 ANGIOSEAL, FR6 VIP FR 6 placement in the Fem Art (left) 8:56:32 Case End 8:56:34 No case complications noted. 8:56:35 Cine recording checked. 8:56:41 HR=91 bpm, LDTL=419/93 mmhg, SpO2=99.0 %, Resp=15 B/min, Pain=0, Blade=10, Borges=2 8:58:29 Bedside Report will be given. Assessment: Final Case, HR=90 BPM, Rhythm=Sinus, IGRU=098/93 mmhg, Chest Pain=0, Edema=None, Color=Normal, Skin = Warm, Dry Right Pulses: Femoral=2 8:58:31 Left Pulses: Femoral=2 Neurological: State=Alert, Ox3, VERDUZCO Respiration: Resp=10 B/min, QiW3=028 %, O2=2 lpm 9:01:42 IFHM=520/95 mmhg, SpO2=99.0 %, Pain=0, Blade=10, Borges=2 9:03:10 Vitals capture stopped. 9:06:52 Patient moved to stretcher End Study - Contrast Media Used In Study Contrast Total Opened (mL) Total Used (mL) Total Wasted (mL) Omnipaque 200 75 125 End Study - Maximum Contrast Load Max Contrast Load (mL) 411.9 End Study - Radiation Exposure Fluoro Time (minutes) 7.2 End Study - Patient Disposition Complications Transferred To Interventional Outcome No Telemetry Bed successful
--- NOTE | 2018-01-06 09:10 | HHI.PR ---
cc: Moe Cullen MD; Masoud Gates DPM Immediate Post Op Note Procedure Date: January 06, 2018 Pre Op Diagnosis: R LE PAD, tissue loss Post Op Diagnosis: R LE PAD, tissue loss Surgeon: Moe Cullen Pedicab Driver(s): none Procedure: 1. Aortogram w/ R LE angiogram 2. R SFA and popliteal angioplasty (5mm) 3. L HIDE INSPECTOR AND SORTER Angioseal Findings: 1. SFA and popliteal stenosis, successful AIRCONDITIONING ENGINEER 2. BK popliteal occlusion with PT reconstitution Additional Information: inflow and suprageniculate disease successfully fixed will need RIGHT SFA-PT bypass - ordered vein mapping tentatively on OR schedule for THURSDAY Complications: none Specimen(s) removed: none Estimated blood loss: 5mL Anesthesia: MAC Patient to: Other (DOCU) Patient Condition: Good Implant/Devices: SEE IMPLANT LOG (if applicable) Date/Time of Procedure: SEE SURGICAL CARE RECORD Moe Cullen MD January 06, 2018 09:10
[2018-01-06] MEDS ORDERED: CLOPIDOGREL 75 MG TAB PO ONE (09:15)
--- NOTE | 2018-01-06 09:17 | HHI.PR ---
Subjective Remarks Patient is a 43-year-old male diabetic insulin requiring, hypertension who about 2 weeks prior to admission complaining complained of swelling of the right foot. Patient with fever and chills. Next day developed blister on the anterior aspect of the foot and sought consult with the PCP where it was initially told it was gout.. patient also states that he was also placed on Bactrim for 5 days. 4 days later with worsening swelling. Draining foul- smelling yellowish exudate minimal per . He was seen in follow-up by primary care physician and was sent here for further evaluation and management. Patient states good hypoglycemic awareness. He states that he was just also recently started on 7030 10 units twice a day. Patient complains of neuropathic pain for which he takes gabapentin. 01-05 Nursing reports patient having substantial pain. Otherwise no other medical deterioration since last night. Patient denies ever being put on a cholesterol medication in the past. 01-06 SP ANGIOGRAM TODAY WITH ANGIOPLASTY Patient states he "BOOTLEGS DM MEDICATIONS FROM FAMILY" WAS ALSO SMOKING PRIOR TO COMING TO THE HOSPITAL NEEDS TO CONTROL SUGARS AND STOP SMOKING DW RN AND PT AND CM AND FAMILY NEEDS DM EDUCATION Objective Vitals Vital Signs Date Time Temp Pulse Resp B/P (MAP) Pulse Ox O2 Delivery O2 Flow Rate FiO2 01/06/18 04:00 98.4 93 18 148/82 (104) 95 01/06/18 01:05 20 01/06/18 00:00 98.0 88 18 115/74 (88) 100 01/05/18 22:00 18 01/05/18 20:00 83 16 146/79 (101) 100 Nasal Cannula 2 01/05/18 20:00 97.2 85 18 150/87 (108) 100 01/05/18 19:45 80 18 147/72 (97) 100 Nasal Cannula 2 01/05/18 19:30 79 18 125/97 (106) 100 Nasal Cannula 2 01/05/18 19:20 98.4 77 16 100/59 (73) 100 Nasal Cannula 2 01/05/18 13:00 98.0 87 18 135/83 (100) 97 I/O 01/05/18 01/05/18 01/05/18 01/06/18 01/06/18 01/06/18 07:00 15:00 23:00 07:00 15:00 23:00 Intake Total 620 ml 1450 ml 222 ml Output Total 5 ml Balance 620 ml 1445 ml 222 ml Intake Oral 620 ml 222 ml IV Total 1250 ml Other 200 ml Output Estimated Blood Loss 5 ml # Voids 1 1 # Bowel Movements 1 0 Result Diagram: 01/05/18 0525 01/05/18 0525 Other Results Laboratory Tests Test 01/04/18 12:35 01/05/18 05:25 White Blood Count 18.9 TH/MM3 13.7 TH/MM3 Red Blood Count 4.20 MIL/MM3 3.49 MIL/MM3 Hemoglobin 10.5 GM/DL 8.8 GM/DL Hematocrit 31.6 % 26.3 % Mean Corpuscular Volume 75.3 FL 75.4 FL Mean Corpuscular Hemoglobin 25.1 PG 25.1 PG Mean Corpuscular Hemoglobin Concent 33.3 % 33.3 % Red Cell Distribution Width 14.5 % 14.3 % Platelet Count 545 TH/MM3 439 TH/MM3 Mean Platelet Volume 7.5 FL 7.7 FL Neutrophils (%) (Auto) 75.7 % 75.0 % Lymphocytes (%) (Auto) 15.3 % 14.9 % Monocytes (%) (Auto) 7.8 % 8.1 % Eosinophils (%) (Auto) 0.9 % 1.5 % Basophils (%) (Auto) 0.3 % 0.5 % Neutrophils # (Auto) 14.3 TH/MM3 10.3 TH/MM3 Lymphocytes # (Auto) 2.9 TH/MM3 2.0 TH/MM3 Monocytes # (Auto) 1.5 TH/MM3 1.1 TH/MM3 Eosinophils # (Auto) 0.2 TH/MM3 0.2 TH/MM3 Basophils # (Auto) 0.1 TH/MM3 0.1 TH/MM3 CBC Comment DIFF FINAL DIFF FINAL Differential Comment Erythrocyte Sedimentation Rate GREATER THAN 140 mm/hr Prothrombin Time 10.0 SEC Prothromb Time International Ratio 1.0 RATIO Activated Partial Thromboplast Time 26.7 SEC Blood Urea Nitrogen 19 MG/DL 17 MG/DL Creatinine 1.66 MG/DL 1.33 MG/DL Random Glucose 67 MG/DL 129 MG/DL Total Protein 8.2 GM/DL Albumin 2.3 GM/DL Calcium Level 9.8 MG/DL 8.9 MG/DL Magnesium Level 1.7 MG/DL Alkaline Phosphatase 179 U/L Aspartate Amino Transf (AST/SGOT) 18 U/L Alanine Aminotransferase (ALT/SGPT) 16 U/L Total Bilirubin 0.1 MG/DL Sodium Level 139 MEQ/L 141 MEQ/L Potassium Level 3.7 MEQ/L 4.4 MEQ/L Chloride Level 107 MEQ/L 110 MEQ/L Carbon Dioxide Level 21.9 MEQ/L 23.5 MEQ/L Anion Gap 10 MEQ/L 8 MEQ/L Estimat Glomerular Filtration Rate 56 ML/MIN 72 ML/MIN Lactic Acid Level 1.7 mmol/L C-Reactive Protein 13.30 MG/DL Hemoglobin A1c 14.3 % Iron Level 27 MCG/DL Total Iron Binding Capacity 172 MCG/DL Percent Iron Saturation 15.7 % Ferritin 259 NG/ML Triglycerides Level 180 MG/DL Cholesterol Level 166 MG/DL LDL Cholesterol 102 MG/DL HDL Cholesterol 27.6 MG/DL Cholesterol/HDL Ratio 6.01 RATIO Imaging Last Impressions Chest X-Ray 01/05/18 0600 Signed Impressions: Service Date/Time: Friday, January 05, 2018 09:18 - CONCLUSION: 1. No acute cardiopulmonary findings. Fausto Cole MD Lower Extremity CT 01/04/18 0000 Signed Impressions: Service Date/Time: Thursday, January 04, 2018 17:37 - CONCLUSION: 1. Soft tissue ulcer in the lateral proximal forefoot with subcutaneous air extending to the base of the fourth digit. No definite osseous abnormality to suggest osteomyelitis. Consider MRI examination if there is continued clinical concern. Giorgi Rider MD Foot X-Ray 01/04/18 0000 Signed Impressions: Service Date/Time: Thursday, January 04, 2018 12:43 - CONCLUSION: Negative for acute process. Antonio Cole MD FACR Objective Remarks GENERAL: Awake and alert and oriented 3 talkative and cooperative SKIN: Warm and dry. Right lower extremity is dressed HEAD: Atraumatic. Normocephalic. EYES: Pupils equal and round. No scleral icterus. No injection or drainage. Extraocular muscles intact ENT: No nasal bleeding or discharge. Mucous membranes pink and moist. Tongue is midline NECK: Trachea midline. No JVD. Supple CARDIOVASCULAR: Regular rate and rhythm. S1-S2 no S3 or S4 RESPIRATORY: No accessory muscle use. Clear to auscultation. Breath sounds equal bilaterally. GASTROINTESTINAL: Abdomen soft, non-tender, nondistended. Hepatic and splenic margins not palpable. Obese MUSCULOSKELETAL: Extremities without clubbing, cyanosis, or edema. No obvious deformities. Right lower extremity is dressed NEUROLOGICAL: Awake and alert. No obvious cranial nerve deficits. Motor grossly within normal limits. 4 out of 5 muscle strength in the arms and legs. Normal speech. PSYCHIATRIC: Appropriate mood and affect; insight and judgment normal. Procedures ANGIOGRAM -16 Moe Cullen MD DATE OF OPERATION: PREOPERATIVE DIAGNOSIS: Right lower extremity tissue loss, peripheral vascular disease. POSTOPERATIVE DIAGNOSIS: Right lower extremity tissue loss, peripheral vascular disease. PROCEDURE PERFORMED: 1. Aortogram with right lower extremity angiogram. 2. Right SFA and popliteal artery angioplasty with 5 mm balloon. 3. Left common femoral artery Angio-Seal. OPERATING SURGEON: Moe Cullen MD ANESTHESIA: Local with sedation. INDICATIONS: Mr. Garibay is a 42-year-old gentleman with right lower extremity tissue loss. He is taken to the operating room for angiographic evaluation and potential treatment. There was no prior catheter-based imaging available for my review. DESCRIPTION OF PROCEDURE: Informed consent was obtained from the patient. He was taken to the operating room and placed supine on the operating table. An appropriate timeout was taken to ensure the patient's identity, the operative site and planned procedure. The administration of antibiotics was not necessary as this is a clean procedure without the planned implantation of any foreign object. Everyone in the room agreed with timeout and we proceeded. His bilateral groins prepped and draped. Left groin was anesthetized with 1% lidocaine. A 21-gauge micropuncture needle was used to access the left common femoral artery, was exchanged using Seldinger technique through micropuncture sheath, which a 0.035 Glidewire was introduced. Micropuncture sheath was exchanged for a 4-Bulgarian sheath. A VCF catheter was placed over the wire and through the sheath and aortogram, pelvic arteriogram was obtained. The Glidewire was reintroduced and navigated down to the right common femoral artery and the VCF catheter was advanced over this and a right lower extremity arteriogram was obtained. The patient was systemically heparinized with 5000 units of IV Heparin. A 0.035 Ceballos wire was introduced down to the mid SFA and the VCF catheter and 4-Bulgarian sheath were removed and a 6-Bulgarian 55 cm Dimitry sheath was introduced. A CXI catheter was placed over the wire into the sheath and the wire was exchanged for a TYPE PHOTOGRAPHY SUPERVISOR wire. Using the TYPE PHOTOGRAPHY SUPERVISOR wire and CXI catheter we were able to navigate through the SFA lesion and the popliteal lesion. Both of these were angioplastied with a 5 x 200 and 5 x 80 balloon, respectively. The completion angiogram showed excellent result on recoil extravasation. We then did advance the catheter down to the popliteal artery. An angiogram was obtained. The wire, catheter and sheath were removed and the groin was closed with Angio-Seal. There were no complications. I was present and scrubbed for the entire procedure. INTERPRETATION OF IMAGES: The patient has a patent terminal aorta, common iliac arteries, hypogastric arteries and external iliac arteries, none of which have any hemodynamically significant stenoses. The right common femoral artery and profunda are patent without any hemodynamically significant stenosis. The proximal SFA is patent. The mid SFA has high-grade diffuse stenosis that was successfully angioplastied and the popliteal artery had a similar high-grade diffuse stenosis that was successfully angioplastied. The below knee popliteal artery occludes and there was no posterior tibial artery or peroneal artery proximally. The perigeniculate collaterals give rise to the posterior tibial artery in the mid to distal calf. , 09:14 AM Masoud Gates DPM DATE OF OPERATION: 01/05/2018 PREOPERATIVE DIAGNOSIS: Right fourth digit gangrene, abscess, diabetic foot infection. POSTOPERATIVE DIAGNOSIS: Right fourth digit gangrene, abscess, diabetic foot infection. PROCEDURE PERFORMED: Right fourth digit amputation, incision and drainage deep, right foot. INTRAOPERATIVE FINDINGS: Minimal bleeding. Foul odor at level of amputation site. S SPECIMENS: Fourth digit for pathology. Deep culture at amputation site for micro. ESTIMATED BLOOD LOSS: Less than 30 mL ANESTHESIA: General. DRAINS: None. TOURNIQUET: None. DISPOSITION: Returned to floor for vascular intervention and monitor of foot. May need wound VAC versus repetitive debridements versus amputation at a later date. JUSTIFICATION FOR PROCEDURE: A 42-year-old diabetic male with a history of smoking, was admitted. CT showed gas within the tissue at the base of the fourth digit. The patient was planned for vascular intervention; however, we wished to eradicate infection or at least debulk the infection first. The patient was educated on risks and benefits, need for more surgery, loss of limb. No guarantees were given or implied regarding the outcome. PROCEDURE IN DETAIL: Under mild sedation, the patient was brought into the operating room, placed on the operating table in supine position. Following the induction of general anesthesia, the patient's right lower extremity was scrubbed, prepped and draped in the usual aseptic fashion. The foot was elevated and examined. There was noted to be a necrotic, delayed capillary fill time, a putrid-smelling right fourth digit. A fishmouth mouth type incision was made disarticulating the digit down to the level of the joint. There were gas bubbles within the tissue. There was purulent drainage. There was a full-thickness eschar of the dorsum of the foot that had an odor. This was sharply unroofed down to the tendon sheath with exposed fourth metatarsal. There was no obvious signs of tracking deep within the plantar aspect of the foot or along the dorsal aspect of the foot. This was flushed with copious amounts of normal saline. Minimal Bovie and ligation was needed throughout the case. The wound was packed open, soft bandage applied. The patient was transferred from OR to PACU with all vital signs stable. The patient will be monitored after a vascular attempt. Overall prognosis is poor given the history of smoking and diabetes. I will see the patient within 1-2 days. Masoud Gates DPM Medications and IVs Current Medications Morphine Sulfate (Morphine Inj) 4 mg ONCE ONCE IV PUSH Last administered on at 13:34; Start 01/04/18 at 12:15; Stop 01/04/18 at 12:16; Status DC Ondansetron HCl (Zofran Odt) 4 mg ONCE ONCE PO Last administered on at 13:33; Start 01/04/18 at 12:15; Stop 01/04/18 at 12:16; Status DC Piperacillin Sod/ Tazobactam Sod 50 ml @ 100 mls/hr ONCE ONCE IV Last administered on 01/04/18at 13:34; Start 01/04/18 at 12:15; Stop 01/04/18 at 12:44 ; Status DC Vancomycin HCl 1000 mg/Sodium Chloride 250 ml @ 250 mls/hr ONCE ONCE IV Last administered on 01/04/18at 14:20; Start 01/04/18 at 12:15; Stop 01/04/18 at 13:14 ; Status DC Sodium Chloride 1,000 ml @ 1,000 mls/hr Q1H IV Last administered on 01/04/18at 13:34; Start 01/04/18 at 12:13; Stop 01/04/18 at 13:12; Status DC Aspirin (Aspirin Chew) 324 mg ONCE ONCE CHEW Last administered on 01/04/18at 13 :33; Start 01/04/18 at 13:15; Stop 01/04/18 at 13:16; Status DC Dextrose (D25w Inj) 10 ml ONCE ONCE IV PUSH Last administered on 01/04/18at 14: 28; Start 01/04/18 at 13:45; Stop 01/04/18 at 13:46; Status DC Sodium Chloride 1,000 ml @ 70 mls/hr [id number] IV Last administered on at 10:40; Start 01/04/18 at 15:00 Lisinopril (Prinivil) 10 mg DAILY PO Last administered on 01/05/18at 09:52; Start 01/05/18 at 09:00 Gabapentin (Neurontin) 300 mg TID PO Last administered on 01/05/18at 13:46; Start 01/04/18 at 18:00 Dextrose (D50w (Vial) Inj) 50 ml UNSCH PRN IV PUSH HYPOGLYCEMIA-SEE COMMENTS; Start 01/04/18 at 17:45 Glucagon (Glucagon Inj) 1 mg UNSCH PRN OTHER HYPOGLYCEMIA-SEE COMMENTS; Start 01/04/18 at 17:45 Insulin Aspart (NovoLOG SUPPLEMENTAL SCALE) 1 ACHS SLIDING SCALE SQ Last administered on 01/06/18at 07:45; Start 01/04/18 at 21:00 Piperacillin Sod/ Tazobactam Sod 50 ml @ 100 mls/hr Q6H IV ; Start 01/04/18 at 20:00; Status Cancel Pharmacy Profile Note 0 ml @ 0 mls/hr UNSCH OTHER ; Start 01/04/18 at 18:00 Vancomycin HCl 1000 mg/Sodium Chloride 250 ml @ 250 mls/hr Q12H IV ; Start at 06:00; Stop 01/05/18 at 06:00; Status DC Oxycodone/ Acetaminophen (Percocet 5-325 Mg) 1 tab Q6HR PRN PO PAIN SCALE 3 TO 5; Start 01/04/18 at 18:00 Oxycodone/ Acetaminophen (Percocet 7.5-325 Mg) 1 tab Q6H PRN PO PAIN SCALE 6 TO 10 Last administered on 01/05/18at 20:56; Start 01/04/18 at 18:00 Pantoprazole Sodium (Protonix) 20 mg DAILY PO Last administered on 01/05/18at 09 :52; Start 01/05/18 at 09:00 Vancomycin HCl 1250 mg/Sodium Chloride 262.5 ml @ 250 mls/hr Q12H IV Last administered on 01/06/18at 00:20; Start 01/05/18 at 01:00 Cefepime HCl 2000 mg/Sodium Chloride 100 ml @ 200 mls/hr Q12H IV Last administered on 01/05/18at 06:04; Start 01/04/18 at 18:00; Stop 01/05/18 at 12:37 ; Status DC Miscellaneous Information ([facility] Ordered Lab Info) SPECIFIC LAB TO BE ... ONCE ONCE .XX ; Start 01/06/18 at 12:45; Stop 01/06/18 at 12:46 Zolpidem Tartrate (Ambien) 5 mg ONCE ONCE PO Last administered on 01/04/18at 22 :40; Start 01/04/18 at 22:15; Stop 01/04/18 at 22:16; Status DC Morphine Sulfate (Morphine Inj) 4 mg Q4H PRN IV PUSH BREAKTHROUGH PAIN Last administered on 01/06/18at 00:49; Start 01/05/18 at 10:15 Piperacillin Sod/ Tazobactam Sod 50 ml @ 100 mls/hr Q6H IV Last administered on 01/06/18at 01:29; Start 01/05/18 at 14:00 Aspirin (Ecotrin Ec) 81 mg DAILY PO ; Start 01/06/18 at 09:00 Atorvastatin Calcium (Lipitor) 40 mg HS PO Last administered on 01/05/18at 20:55 ; Start 01/05/18 at 21:00 Iron Sucrose 200 mg/Sodium Chloride 110 ml @ 110 mls/hr DAILY IV Last administered on 01/05/18at 15:00; Start 01/05/18 at 15:00; Stop 01/07/18 at 09:59 Bupivacaine HCl (Marcaine Pf 0.25% Inj) 30 ml STK-MED ONCE .ROUTE ; Start at 16:45; Stop 01/05/18 at 16:46; Status DC Neomycin/Polymyxin (Neosporin G.u. Irr) 1 ml STK-MED ONCE .ROUTE ; Start at 16:55; Stop 01/05/18 at 16:56; Status DC Acetaminophen 100 ml @ As Directed STK-MED ONCE IV ; Start 01/05/18 at 18:17; Stop 01/05/18 at 18:18; Status DC Lactated Ringer's 1,000 ml @ 30 mls/hr Q24H PRN IV SEE LABEL COMMENTS; Start at 18:45; Stop 01/08/18 at 18:44 Sodium Chloride 500 ml @ 30 mls/hr [id number] PRN IV SEE LABEL COMMENTS; Start at 18:45; Stop 01/08/18 at 18:44 Povidone Iodine (Betadine 5% Antisepsis Kit) 1 applic DICE DEALER PRN EACH NARE SEE LABEL COMMENTS; Start 01/05/18 at 18:45; Stop 01/08/18 at 18:44 Chlorhexidine Gluconate (Chlorhexidine 2% Cloth) 3 pack DICE DEALER PRN TOPICAL SEE LABEL COMMENTS; Start 01/05/18 at 18:45; Stop 01/08/18 at 18:44 Midazolam HCl (Versed Inj) 2 mg STK-MED ONCE .ROUTE ; Start 01/05/18 at 19:26; Stop 01/05/18 at 19:27; Status DC Miscellaneous Information ([facility]) ALL NURSING DEPARTME... UNSCH PRN .XX SEE LABEL COMMENTS; Start 01/05/18 at 20:30; Stop 01/06/18 at 20: 29 Fentanyl Citrate (fentaNYL INJ) 100 mcg STK-MED ONCE .ROUTE ; Start 01/06/18 at 08:04; Stop 01/06/18 at 08:05; Status DC Midazolam HCl (Versed Inj) 5 mg STK-MED ONCE .ROUTE ; Start 01/06/18 at 08:04; Stop 01/06/18 at 08:05; Status DC Heparin Sodium/ Sodium Chloride 2,000 ml @ As Directed STK-MED ONCE IV FLUSH ; Start 01/06/18 at 08:04; Stop 01/06/18 at 08:05; Status DC Heparin Sodium (Porcine) (Heparin Inj) 10,000 units STK-MED ONCE .ROUTE ; Start 01/06/18 at 08:29; Stop 01/06/18 at 08:30; Status DC Clopidogrel Bisulfate (Plavix) 150 mg ONCE ONCE PO ; Start 01/06/18 at 09:15; Stop 01/06/18 at 09:16; Status UNV Clopidogrel Bisulfate (Plavix) 75 mg DAILY PO ; Start 01/08/18 at 09:00; Status UNV A/P Assessment and Plan 42-year-old male Sepsis secondary to diabetic right foot infection with dry gangrene 4th digit with possible abscess on exam and possible underlying OM -Blood cultures pending, see treatment below Suspected dry gangrene -Discussed with infectious disease, needs anaerobic and aerobic coverage, continue vancomycin and Zosyn -Podiatry plans for debridement - Peripheral vascular disease -Vascular surgery plans intervention -16 -start Lipitor -Baby aspirin SP angioplasty January [address] Cullen Acute kidney injury - improving w/ IVF -BMP in AM Microcytic anemia -Show substantial iron deficiency, will start Venofer, obtain Hemoccult 3 Diabetes type 2 -Hold metformin for now, sliding scale with Accu-Chek SEVERELY UNCONTROLLED HGBA1C 14.3- WILL NEED INSULIN PROBABLY FROM [facility] AT [place] Malignant medical noncompliance due to lack of insurance and uncontrolled diabetes Diabetic neuropathy -Continue on gabapentin Hypertension. -Continue lisinopril Hyperlipidemia started on Lipitor Continue on anticoagulation per vascular surgery now on aspirin and Plavix and Lipitor Malignant noncompliance due to monetary issues Tobacco abuse recommend cessation lifelong due to diabetes and severe peripheral vascular occlusive disease No pharmacological anticoagulation at this time given impending surgery, SCD on left lower extremity only given pathology on right lower external Discharge Planning Pending improvement Antonio Martell DO January 06, 2018 09:17
--- NOTE | 2018-01-06 09:37 | MP ---
cc: Moe Cullen MD DATE OF OPERATION: PREOPERATIVE DIAGNOSIS: Right lower extremity tissue loss, peripheral vascular disease. POSTOPERATIVE DIAGNOSIS: Right lower extremity tissue loss, peripheral vascular disease. PROCEDURE PERFORMED: 1. Aortogram with right lower extremity angiogram. 2. Right SFA and popliteal artery angioplasty with 5 mm balloon. 3. Left common femoral artery Angio-Seal. OPERATING SURGEON: Moe Cullen MD ANESTHESIA: Local with sedation. INDICATIONS: Mr. Garibay is a 42-year-old gentleman with right lower extremity tissue loss. He is taken to the operating room for angiographic evaluation and potential treatment. There was no prior catheter-based imaging available for my review. DESCRIPTION OF PROCEDURE: Informed consent was obtained from the patient. He was taken to the operating room and placed supine on the operating table. An appropriate timeout was taken to ensure the patient's identity, the operative site and planned procedure. The administration of antibiotics was not necessary as this is a clean procedure without the planned implantation of any foreign object. Everyone in the room agreed with timeout and we proceeded. His bilateral groins prepped and draped. Left groin was anesthetized with 1% lidocaine. A 21-gauge micropuncture needle was used to access the left common femoral artery, was exchanged using Seldinger technique through micropuncture sheath, which a 0.035 Glidewire was introduced. Micropuncture sheath was exchanged for a 4-Mosotho sheath. A VCF catheter was placed over the wire and through the sheath and aortogram, pelvic arteriogram was obtained. The Glidewire was reintroduced and navigated down to the right common femoral artery and the VCF catheter was advanced over this and a right lower extremity arteriogram was obtained. The patient was systemically heparinized with 5000 units of IV Heparin. A 0.035 Ceballos wire was introduced down to the mid SFA and the VCF catheter and 4-Mosotho sheath were removed and a 6-Mosotho 55 cm Dimitry sheath was introduced. A CXI catheter was placed over the wire into the sheath and the wire was exchanged for a RN URGENT CARE wire. Using the RN URGENT CARE wire and CXI catheter we were able to navigate through the SFA lesion and the popliteal lesion. Both of these were angioplastied with a 5 x 200 and 5 x 80 balloon, respectively. The completion angiogram showed excellent result on recoil extravasation. We then did advance the catheter down to the popliteal artery. An angiogram was obtained. The wire, catheter and sheath were removed and the groin was closed with Angio-Seal. There were no complications. I was present and scrubbed for the entire procedure. INTERPRETATION OF IMAGES: The patient has a patent terminal aorta, common iliac arteries, hypogastric arteries and external iliac arteries, none of which have any hemodynamically significant stenoses. The right common femoral artery and profunda are patent without any hemodynamically significant stenosis. The proximal SFA is patent. The mid SFA has high-grade diffuse stenosis that was successfully angioplastied and the popliteal artery had a similar high-grade diffuse stenosis that was successfully angioplastied. The below knee popliteal artery occludes and there was no posterior tibial artery or peroneal artery proximally. The perigeniculate collaterals give rise to the posterior tibial artery in the mid to distal calf. MD AIILN Roberts/TL , 09:14 AM , 09:36 AM
[2018-01-06] MEDS ORDERED: IOHEXOL 350 MG/ML 100 ML BTL (for Cath Lab) OTHER ONE (11:30)
[2018-01-06] MEDS: IRON SUCROSE INJ 200 MG in SODIUM CHLORIDE 0.9% INJ 100 ML IV SCH (12:24)
[2018-01-06] MEDS: oxyCODONE/ACETAMINOPHEN 7.5 MG/325 MG TAB PO PRN ×2 (12:26→17:44)
[2018-01-06] MEDS ORDERED: PHARMACY ORDERED LAB ONE (12:45)
--- NOTE | 2018-01-06 15:02 | HHI.IDPN ---
Subjective Subjective Remarks sp Aortogram with right lower extremity angiogram Right SFA and popliteal artery angioplasty with [address] Moe Cullen MD sp R 4th toe amputation no fever tolerates abx ok Antibiotics vanco\ zosyn Allergies: Coded Allergies: No Known Allergies (Verified Adverse Reaction, Unknown, 01/04/18) Objective . Vital Signs Date Time Temp Pulse Resp B/P (MAP) Pulse Ox O2 Delivery O2 Flow Rate FiO2 01/06/18 13:26 18 01/06/18 10:56 18 01/06/18 08:05 98.8 97 18 169/93 (118) 97 01/06/18 04:00 98.4 93 18 148/82 (104) 95 01/06/18 00:00 98.0 88 18 115/74 (88) 100 01/05/18 20:00 83 16 146/79 (101) 100 Nasal Cannula 2 01/05/18 20:00 97.2 85 18 150/87 (108) 100 01/05/18 19:45 80 18 147/72 (97) 100 Nasal Cannula 2 01/05/18 19:30 79 18 125/97 (106) 100 Nasal Cannula 2 01/05/18 19:20 98.4 77 16 100/59 (73) 100 Nasal Cannula 2 . Laboratory Tests Test 01/05/18 05:25 White Blood Count 13.7 TH/MM3 Red Blood Count 3.49 MIL/MM3 Hemoglobin 8.8 GM/DL Hematocrit 26.3 % Mean Corpuscular Volume 75.4 FL Mean Corpuscular Hemoglobin 25.1 PG Mean Corpuscular Hemoglobin Concent 33.3 % Red Cell Distribution Width 14.3 % Platelet Count 439 TH/MM3 Mean Platelet Volume 7.7 FL Neutrophils (%) (Auto) 75.0 % Lymphocytes (%) (Auto) 14.9 % Monocytes (%) (Auto) 8.1 % Eosinophils (%) (Auto) 1.5 % Basophils (%) (Auto) 0.5 % Neutrophils # (Auto) 10.3 TH/MM3 Lymphocytes # (Auto) 2.0 TH/MM3 Monocytes # (Auto) 1.1 TH/MM3 Eosinophils # (Auto) 0.2 TH/MM3 Basophils # (Auto) 0.1 TH/MM3 CBC Comment DIFF FINAL Differential Comment Laboratory Tests Test 01/05/18 05:25 Blood Urea Nitrogen 17 MG/DL Creatinine 1.33 MG/DL Random Glucose 129 MG/DL Calcium Level 8.9 MG/DL Sodium Level 141 MEQ/L Potassium Level 4.4 MEQ/L Chloride Level 110 MEQ/L Carbon Dioxide Level 23.5 MEQ/L Anion Gap 8 MEQ/L Estimat Glomerular Filtration Rate 72 ML/MIN Hemoglobin A1c 14.3 % Iron Level 27 MCG/DL Total Iron Binding Capacity 172 MCG/DL Percent Iron Saturation 15.7 % Ferritin 259 NG/ML Triglycerides Level 180 MG/DL Cholesterol Level 166 MG/DL LDL Cholesterol 102 MG/DL HDL Cholesterol 27.6 MG/DL Cholesterol/HDL Ratio 6.01 RATIO Microbiology Date/Time Source Procedure Growth Status 01/04/18 12:40 Blood Peripheral Aerobic Blood Culture - Preliminary NO GROWTH IN 2 DAYS Resulted 01/04/18 12:40 Blood Peripheral Anaerobic Blood Culture - Preliminary NO GROWTH IN 2 DAYS Resulted 01/04/18 12:35 Blood Peripheral Aerobic Blood Culture - Preliminary NO GROWTH IN 2 DAYS Resulted 01/04/18 12:35 Blood Peripheral Anaerobic Blood Culture - Preliminary NO GROWTH IN 2 DAYS Resulted 01/05/18 17:05 Wound Foot Fungal Smear - Final NO FUNGAL ELEMENTS SEEN. Resulted 01/05/18 17:05 Wound Foot Fungal Culture Pending Resulted 01/05/18 17:05 Wound Foot Acid Fast Stain Pending Received 01/05/18 17:05 Wound Foot Mycobacterial Culture Pending Received 01/05/18 17:05 Wound Foot Gram Stain - Final Resulted 01/05/18 17:05 Wound Foot Wound Culture Pending Resulted 01/04/18 12:30 Wound Foot Gram Stain - Final Resulted 01/04/18 12:30 Wound Culture - Preliminary Staphylococcus Aureus Group D Enterococcus Resulted Imaging Last Impressions Chest X-Ray 01/05/18 0600 Signed Impressions: Service Date/Time: Friday, January 05, 2018 09:18 - CONCLUSION: 1. No acute cardiopulmonary findings. Fausto Cole MD Lower Extremity CT 01/04/18 0000 Signed Impressions: Service Date/Time: Thursday, January 04, 2018 17:37 - CONCLUSION: 1. Soft tissue ulcer in the lateral proximal forefoot with subcutaneous air extending to the base of the fourth digit. No definite osseous abnormality to suggest osteomyelitis. Consider MRI examination if there is continued clinical concern. Giorgi Rider MD Foot X-Ray 01/04/18 0000 Signed Impressions: Service Date/Time: Thursday, January 04, 2018 12:43 - CONCLUSION: Negative for acute process. Antonio Cole MD FACR Physical Exam CONSTITUTIONAL/GENERAL: This is an adequately nourished patient, in no apparent distress. SKIN: No jaundice, rashes, or lesions. MUSCULOSKELETAL: Extremities without clubbing, cyanosis, or edema. dressing in place no edema or erythema proximally to dressing NEUROLOGICAL: Awake and alert. Motor and sensory grossly within normal limits. Follows commands. Clear speech. Moves all extremities. PSYCHIATRIC: No obvious anxiety/depression. no apparent hallucinations or other psychotic thought process. Assessment & Plan Remarks DFI, suspected osteomyelitis of R foot R 4th toe gangrene sp amputation surface clx growing MSSA and Enterococcus GPC in op clx Confirmed PVD sp revasc'n awaiting MRI cont vanco cont zosyn for now will finalyze abx per final clx, path result, MRI findings aJneen Bolanos MD January 06, 2018 15:02
[2018-01-06] MEDS ORDERED: GADODIAMIDE PF 287 MG/ML 20 ML VIAL (for RAD MRI) IVCONTRAST ONE (16:04)
--- NOTE | 2018-01-06 16:38 | RADRPT ---
EXAM DATE/TIME: 01/06/2018 15:27 [facility] COMPARISON: FOOT RIGHT COMPLETE ([id number]), January 04, 2018, 12:43. INDICATIONS : Osteomyelitis. 4th toe infection. CONTRAST: 20 cc Omniscan (gadodiamide) IV MEDICAL HISTORY : Hypertension. Diabetes mellitus type 2. Peripheral vascular disease. ETOH. Substance abuse. SURGICAL HISTORY : Right 4th toe removed. Right ankle surgery. ENCOUNTER: Subsequent ACUITY: 2 weeks LOCATION: Right foot. TECHNIQUE: Multiplanar, multisequence MRI examination was performed without contrast and after the intravenous a dministration of gadolinium. FINDINGS: Extensive generalized edema in the foot. The right fourth toe has been removed. Marrow signal the f irst second third and fifth toes is homogeneous and normal. The marrow signal in the metatarsals is homogeneous and normal. There is no evidence for DVT space abscess. There is minimal enhancement in the operative bed, nonspecific. The hindfoot is intact. CONCLUSION: Generalized edema with minimal enhancement in the operative bed, nonspecific. No evidence rales myel itis. Antonio Cole MD FACR on January 06, 2018 at 16:33 Board Certified Radiologist. This report was verified electronically.
--- NOTE | 2018-01-06 18:05 | RADRPT ---
EXAM DATE/TIME: 01/06/2018 17:15 [facility] COMPARISON: No previous studies available for comparison. INDICATIONS : Preop cardiac bypass. MEDICAL HISTORY : Hypertension. Diabetes. Tobacco and substance use. SURGICAL HISTORY : Right ankle surgery. ENCOUNTER: Initial ACUITY: 1 day PAIN SCORE: 0/10 LOCATION: Bilateral leg. GREATER SAPHENOUS VEIN THIGH: PROXIMAL: Right 7 mm Left 7 mm MID: Right 4 mm Left 3 mm DISTAL: Right 2 mm Left 3 mm CALF: PROXIMAL: Right 3 mm Left 2 mm MID: Right 2 mm Left 2 mm DISTAL: Right 2 mm Left 1 mm FINDINGS: The venous system of the lower extremities are patent by color Doppler imaging. Measurements of the leg veins (in mm) are listed above. CONCLUSION: Venous mapping as delineated above. Gibson Isaac MD on January 06, 2018 at 18:02 Board Certified Radiologist. This report was verified electronically.
--- NOTE | 2018-01-06 18:05 | RADRPT ---
EXAM DATE/TIME: 01/06/2018 17:05 [facility] COMPARISON: No previous studies available for comparison. INDICATIONS : Preop cardiac bypass. MEDICAL HISTORY : Hypertension. Diabetes. Tobacco and substance use. SURGICAL HISTORY : Right ankle surgery. ENCOUNTER: Initial ACUITY: 1 day PAIN SCORE: 0/10 LOCATION: Bilateral leg. TECHNIQUE: Venous ultrasound of the left and right leg was performed from the inguinal ligament to the proximal calf. Real-time, color Doppler and spectral tracing, compression and augmentation techniques were us ed. FINDINGS: RIGHT LEG: There is normal compressibility of the deep venous system from the inguinal region to the proximal ca lf. No echogenic clot is seen in the lumen of the common femoral, femoral, popliteal, and posterior tibial veins. There is a normal response of the venous system to proximal and distal augmentation an d respiration. LEFT LEG: There is normal compressibility of the deep venous system from the inguinal region to the proximal ca lf. No echogenic clot is seen in the lumen of the common femoral, femoral, popliteal, and posterior tibial veins. There is a normal response of the venous system to proximal and distal augmentation an d respiration. CONCLUSION: No DVT. Gibson Isaac MD on January 06, 2018 at 18:02 Board Certified Radiologist. This report was verified electronically.
[2018-01-06] MEDS: INSULIN ASPAR PROT 70/30 1,000 UNITS/10 ML VIAL SQ SCH (18:26)
[2018-01-06] MEDS: SODIUM CHLOR 0.9% 1000 ML INJ 1,000 ML IV SCH (18:27)
[2018-01-06] MEDS: ATORVASTATIN 40 MG TAB PO SCH (20:53)
[2018-01-07] VITALS: BP 134/76; PULSE 87; RESP 20; TEMP 97.8; O2SAT 96
[2018-01-07] MEDS: SODIUM CHLOR 0.9% 1000 ML INJ 1,000 ML IV SCH ×2 (00:12→14:30)
[2018-01-07] MEDS: PIPERACIL-TAZO 3.375 GM PREMIX 50 ML IV SCH ×4 (02:13→21:40)
[2018-01-07] MEDS: oxyCODONE/ACETAMINOPHEN 7.5 MG/325 MG TAB PO PRN ×4 (02:16→21:38)
[2018-01-07 04:00] VITALS: BP 164/74; PULSE 88; RESP 20; TEMP 97.6; O2SAT 96
[2018-01-07 05:21] LABS: AUTOMATED NEUTROPHIL # 11.2 TH/MM3 (1.8-7.7); BASOPHIL # 0.1 TH/MM3 (0-0.2); BASOPHIL % 0.6 % (0.0-2.0); EOSINOPHIL # 0.2 TH/MM3 (0-0.4); EOSINOPHIL % 1.2 % (0.0-4.0); HEMATOCRIT 24.2 % (39.0-51.0); HEMOGLOBIN 8.1 GM/DL (13.0-17.0); LYMPH % 14.7 % (9.0-44.0); LYMPHOCYTE # 2.2 TH/MM3 (1.0-4.8); MEAN CELL VOLUME 76.1 FL (80.0-100.0); MEAN CORPUSCULAR HEMOGLOBIN 25.3 PG (27.0-34.0); MEAN CORPUSCULAR HGB CONC 33.2 % (32.0-36.0); MEAN PLATELET VOLUME 7.7 FL (7.0-11.0); MONO % 8.2 % (0.0-8.0); MONOCYTE # 1.2 TH/MM3 (0-0.9); NEUT % 75.3 % (16.0-70.0); PLATELET COUNT 450 TH/MM3 (150-450); RED BLOOD COUNT 3.19 MIL/MM3 (4.50-5.90); RED CELL DISTRIBUTION WIDTH 14.1 % (11.6-17.2); WHITE BLOOD COUNT 14.8 TH/MM3 (4.0-11.0)
[2018-01-07] MEDS: MORPHINE SULFATE 4 MG/ML INJ IV PUSH PRN (05:24)
[2018-01-07 05:52] LABS: ALBUMIN 1.9 GM/DL (3.4-5.0); ALKALINE PHOSPHATASE 140 U/L (45-117); ALT (GPT) 15 U/L (12-78); AST (GOT) 16 U/L (15-37); BICARBONATE 23.7 MEQ/L (21.0-32.0); BLOOD UREA NITROGEN 14 MG/DL (7-18); CALCIUM 8.1 MG/DL (8.5-10.1); CHLORIDE 111 MEQ/L (98-107); CREATININE 1.54 MG/DL (0.60-1.30); GLOMERULAR FILTRATION RATE 61 ML/MIN (>89); GLUCOSE,RANDOM 84 MG/DL (74-106); MAGNESIUM 1.9 MG/DL (1.5-2.5); PHOSPHORUS 3.4 MG/DL (2.5-4.9); SODIUM (NA) 142 MEQ/L (136-145); TOTAL BILIRUBIN ADULT 0.1 MG/DL (0.2-1.0)
[2018-01-07] MEDS ORDERED: VANCOMYCIN INJ 1,500 MG in SODIUM CHLORID 0.9% 500 ML INJ 500 ML IV SCH (06:00)
[2018-01-07] MEDS: INSULIN ASPART SUPPLEMENTAL SCALE SQ SCH ×4 (08:00→21:39)
[2018-01-07 08:05] VITALS: BP 173/87; PULSE 89; RESP 20; TEMP 97.9; O2SAT 98
[2018-01-07] MEDS: LISINOPRIL 10 MG TAB PO SCH (09:05)
[2018-01-07] MEDS: GABAPENTIN 300 MG CAP PO SCH ×3 (09:05→18:06)
[2018-01-07] MEDS: PANTOPRAZOLE SOD 20 MG DELAYED RELEASE TAB PO SCH (09:05)
[2018-01-07] MEDS: ASPIRIN EC 81 MG TABEC PO SCH (09:06)
[2018-01-07] MEDS: INSULIN ASPAR PROT 70/30 1,000 UNITS/10 ML VIAL SQ SCH ×2 (09:08→17:00)
--- NOTE | 2018-01-07 10:34 | RADRPT ---
EXAM DATE/TIME: 01/05/2018 00:00 [facility] COMPARISON: No previous studies available for comparison. INDICATIONS : Right fourth toe gangrene status post amputation TECHNIQUE: Four-cuff ankle and brachial pressures were obtained. Pulse cuff waveform tracings of the ankles were recorded, and ankle-brachial indices were calculated. PRESSURES (mmHg): Brachial (arm): Right IV SITE Left 158 Ankle: Right 142 Left 110 DARRIUS: Right 0.90 Left 0.70 TBI: Right 0.50 Left 0.22 PULSED CUFF WAVEFORMS: Demonstrate blunting of the waveforms bilaterally more significant on the left than the right CONCLUSION: 1. Severely diminished DARRIUS and TBI on the left. 2. Minimally diminished DARRIUS on the right. Fausto Cole MD on January 07, 2018 at 10:30 Board Certified Radiologist. This report was verified electronically.
--- NOTE | 2018-01-07 11:26 | PD.VS.PN ---
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 Angioseal Subjective/Hospital Course 41/M in NAD Pain controlled B LE warm w/ motor intact Post Operative dressing to R LE (foot) I/C/D Objective Vitals/I&O Date Time Temp Pulse Resp B/P (MAP) Pulse Ox O2 Delivery O2 Flow Rate FiO2 01/07/18 08:05 97.9 89 20 173/87 (115) 98 01/07/18 05:35 18 01/07/18 04:00 97.6 88 20 164/74 (104) 96 01/07/18 03:19 20 01/07/18 00:00 97.8 87 20 134/76 (95) 96 01/06/18 19:00 97.9 91 21 166/80 (108) 100 01/06/18 17:39 99 21 01/06/18 16:05 98.0 88 18 168/90 (116) 100 01/06/18 12:05 97.4 87 18 186/107 (133) 100 01/07/18 01/07/18 01/07/18 07:00 15:00 23:00 Intake Total 650 ml Output Total 600 ml Balance 50 ml Exam: GENERAL: A&OX3,NAD,GCS 15 SKIN: Warm and dry L groin w/o pain, swelling or hematoma Post operative dressing to R foot I/C/D CARDIOVASCULAR: Regular rate and rhythm without murmurs, gallops, or rubs. RESPIRATORY: Breath sounds equal bilaterally. No accessory muscle use. GASTROINTESTINAL: Abdomen soft, non-tender, nondistended. MUSCULOSKELETAL: No cyanosis, or edema. Laboratory Laboratory Tests Test 01/06/18 12:58 01/07/18 03:30 Vancomycin Level Trough 21.3 White Blood Count 14.8 Red Blood Count 3.19 Hemoglobin 8.1 Hematocrit 24.2 Mean Corpuscular Volume 76.1 Mean Corpuscular Hemoglobin 25.3 Mean Corpuscular Hemoglobin Concent 33.2 Red Cell Distribution Width 14.1 Platelet Count 450 Mean Platelet Volume 7.7 Neutrophils (%) (Auto) 75.3 Lymphocytes (%) (Auto) 14.7 Monocytes (%) (Auto) 8.2 Eosinophils (%) (Auto) 1.2 Basophils (%) (Auto) 0.6 Neutrophils # (Auto) 11.2 Lymphocytes # (Auto) 2.2 Monocytes # (Auto) 1.2 Eosinophils # (Auto) 0.2 Basophils # (Auto) 0.1 CBC Comment DIFF FINAL Differential Comment Blood Urea Nitrogen 14 Creatinine 1.54 Random Glucose 84 Total Protein 7.0 Albumin 1.9 Calcium Level 8.1 Phosphorus Level 3.4 Magnesium Level 1.9 Alkaline Phosphatase 140 Aspartate Amino Transf (AST/SGOT) 16 Alanine Aminotransferase (ALT/SGPT) 15 Total Bilirubin 0.1 Sodium Level 142 Potassium Level 4.3 Chloride Level 111 Carbon Dioxide Level 23.7 Anion Gap 7 Estimat Glomerular Filtration Rate 61 Free Thyroxine 1.20 Thyroid Stimulating Hormone 3rd Gen 1.760 Date/Time Source Procedure Growth Status 01/04/18 12:40 Blood Peripheral Aerobic Blood Culture - Preliminary NO GROWTH IN 3 DAYS Resulted 01/04/18 12:40 Blood Peripheral Anaerobic Blood Culture - Preliminary NO GROWTH IN 3 DAYS Resulted 01/05/18 17:05 Wound Foot Fungal Smear - Final NO FUNGAL ELEMENTS SEEN. Resulted 01/05/18 17:05 Wound Foot Fungal Culture Pending Resulted Assessment and Plan Assessment: (1) Peripheral vascular disease Status: Acute (2) Diabetic foot infection Status: Acute Plan Plan Discussed w/ pt R LE distal bypass planning for revascularization Questions answered Pt scheduled for a RIGHT LE distal bypass on 01/12/18 w/ Dr. Alyse Caldwell [employer]INTENA[employer]CE [employer] [facility]/[employer] [phone] Kasey Caldwell January 07, 2018 11:26
--- NOTE | 2018-01-07 11:37 | HHI.IDPN ---
Subjective Subjective Remarks ID Xcover for Dr. Bolanos Patient seen and examined on behalf of Dr. Horton 42 yo male with poorly controlled Dm, admits his BS at home in 300-400 range presented with worsening wound of R foot It started about 1-2 weeks ago He failed o/p Bactrim He endorses fever On presentation afebrile, WBC is 18 K no lactic acidosis palin films and CT did not show osteo + heavy tobacco 01/06 s/p Aortogram with right lower extremity angiogram Right SFA and popliteal artery angioplasty with [address] Moe Cullen MD 01/05 s/p R 4th toe amputation performed by Dr. Gates Notes reviewed patient reports he is doing ok pain controlled no fever or chills no cough, SOB no rash no diarrhea afebrile WBC bumped up slightly to 14.8 from 13.7 ESR >140 Cr up 1.54 Path pending Intraop Wound Cx + staph and enterococcus faecalis BCX no growth in 3 days MRI no osteo Antibiotics IV Vancomycin and Zosyn Lines PIV with no e/o infection Past Medical History Hypertension Diabetes type 2 insulin requiring at one point Neuropathy (Denise Fuller) Allergies: Coded Allergies: No Known Allergies (Verified Adverse Reaction, Unknown, 01/04/18) Objective . Vital Signs Date Time Temp Pulse Resp B/P (MAP) Pulse Ox O2 Delivery O2 Flow Rate FiO2 01/07/18 08:05 97.9 89 20 173/87 (115) 98 01/07/18 05:35 18 01/07/18 04:00 97.6 88 20 164/74 (104) 96 01/07/18 03:19 20 01/07/18 00:00 97.8 87 20 134/76 (95) 96 01/06/18 19:00 97.9 91 21 166/80 (108) 100 01/06/18 17:39 99 21 01/06/18 16:05 98.0 88 18 168/90 (116) 100 01/06/18 12:05 97.4 87 18 186/107 (133) 100 . Laboratory Tests Test 01/07/18 03:30 White Blood Count 14.8 TH/MM3 Red Blood Count 3.19 MIL/MM3 Hemoglobin 8.1 GM/DL Hematocrit 24.2 % Mean Corpuscular Volume 76.1 FL Mean Corpuscular Hemoglobin 25.3 PG Mean Corpuscular Hemoglobin Concent 33.2 % Red Cell Distribution Width 14.1 % Platelet Count 450 TH/MM3 Mean Platelet Volume 7.7 FL Neutrophils (%) (Auto) 75.3 % Lymphocytes (%) (Auto) 14.7 % Monocytes (%) (Auto) 8.2 % Eosinophils (%) (Auto) 1.2 % Basophils (%) (Auto) 0.6 % Neutrophils # (Auto) 11.2 TH/MM3 Lymphocytes # (Auto) 2.2 TH/MM3 Monocytes # (Auto) 1.2 TH/MM3 Eosinophils # (Auto) 0.2 TH/MM3 Basophils # (Auto) 0.1 TH/MM3 CBC Comment DIFF FINAL Differential Comment Laboratory Tests Test 01/07/18 03:30 Blood Urea Nitrogen 14 MG/DL Creatinine 1.54 MG/DL Random Glucose 84 MG/DL Total Protein 7.0 GM/DL Albumin 1.9 GM/DL Calcium Level 8.1 MG/DL Phosphorus Level 3.4 MG/DL Magnesium Level 1.9 MG/DL Alkaline Phosphatase 140 U/L Aspartate Amino Transf (AST/SGOT) 16 U/L Alanine Aminotransferase (ALT/SGPT) 15 U/L Total Bilirubin 0.1 MG/DL Sodium Level 142 MEQ/L Potassium Level 4.3 MEQ/L Chloride Level 111 MEQ/L Carbon Dioxide Level 23.7 MEQ/L Anion Gap 7 MEQ/L Estimat Glomerular Filtration Rate 61 ML/MIN Free Thyroxine 1.20 NG/DL Thyroid Stimulating Hormone 3rd Gen 1.760 uIU/ML Microbiology Date/Time Source Procedure Growth Status 01/04/18 12:40 Blood Peripheral Aerobic Blood Culture - Preliminary NO GROWTH IN 3 DAYS Resulted 01/04/18 12:40 Blood Peripheral Anaerobic Blood Culture - Preliminary NO GROWTH IN 3 DAYS Resulted 01/04/18 12:35 Blood Peripheral Aerobic Blood Culture - Preliminary NO GROWTH IN 3 DAYS Resulted 01/04/18 12:35 Blood Peripheral Anaerobic Blood Culture - Preliminary NO GROWTH IN 3 DAYS Resulted 01/05/18 17:05 Wound Foot Fungal Smear - Final NO FUNGAL ELEMENTS SEEN. Resulted 01/05/18 17:05 Wound Foot Fungal Culture Pending Resulted 01/05/18 17:05 Wound Foot Acid Fast Stain Pending Worksheet 01/05/18 17:05 Wound Foot Mycobacterial Culture Pending Worksheet 01/05/18 17:05 Wound Foot Gram Stain - Final Complete 01/05/18 17:05 Wound Culture - Final Staphylococcus Aureus Enterococcus Faecalis Complete 01/04/18 12:30 Wound Foot Gram Stain - Final Complete 01/04/18 12:30 Wound Culture - Final Staphylococcus Aureus Enterococcus Faecalis Complete Imaging Last Impressions Lower Extremity Ultrasound 01/06/18 0000 Signed Impressions: Service Date/Time: Saturday, January 06, 2018 17:05 - CONCLUSION: No DVT. Gibson Isaac MD Foot MRI 01/06/18 0000 Signed Impressions: Service Date/Time: Saturday, January 06, 2018 15:27 - CONCLUSION: Generalized edema with minimal enhancement in the operative bed, nonspecific. No evidence rales myelitis. Antonio Cole MD FACR Chest X-Ray 01/05/18 0600 Signed Impressions: Service Date/Time: Friday, January 05, 2018 09:18 - CONCLUSION: 1. No acute cardiopulmonary findings. Fausto Cole MD Lower Extremity CT 01/04/18 0000 Signed Impressions: Service Date/Time: Thursday, January 04, 2018 17:37 - CONCLUSION: 1. Soft tissue ulcer in the lateral proximal forefoot with subcutaneous air extending to the base of the fourth digit. No definite osseous abnormality to suggest osteomyelitis. Consider MRI examination if there is continued clinical concern. Giorgi Rider MD Foot X-Ray 01/04/18 0000 Signed Impressions: Service Date/Time: Thursday, January 04, 2018 12:43 - CONCLUSION: Negative for acute process. Antonio Cole MD FACR Physical Exam CONSTITUTIONAL/GENERAL: This is an adequately nourished AAM patient, in no apparent distress. Awake and alert. Appears comfortable. SKIN: No jaundice, rashes, or lesions. HEENT: NC/AT. EOMI. Sclera anicteric. No nasal bleeding or discharge. MMM. RESPIRATORY: Nonlabored. Clear to auscultation bilaterally. No wheezing or rhonchi noted. CARDIOVASCULAR: Regular rate and rhythm without any murmurs, rubs or gallops. MUSCULOSKELETAL: Extremities without clubbing, cyanosis, or edema. Right foot postop dressing in place, C/D/I. Able to wiggle toes distally. No edema or erythema proximally to dressing NEUROLOGICAL: Awake and alert. Motor and sensory grossly within normal limits. Follows commands. Clear speech. Moves all extremities. PSYCHIATRIC: No obvious anxiety/depression. no apparent hallucinations or other psychotic thought process. Calm and pleasant. Cooperative with exam. PIV with no e/o infection (Denise Fuller) Assessment & Plan Remarks DFI, suspected osteomyelitis of R foot R 4th toe gangrene sp amputation surface and intraop clx growing MSSA and Enterococcus Confirmed PVD sp revasc'n MRI with no e/o osteo RECS: Discontinue IV Vancomycin Continue on IV Zosyn for now Await pathology results Monitor clinically progress Further recommendations to follow (Denise Fuller) Remarks The exam, history, and the medical decision-making described in the above note were completed with the assistance of the mid-level provider. I reviewed and agree with the findings presented. I attest that I had a [id number] encounter with the patient on the same day, and personally performed and documented my assessment and findings in the medical record. Complains of abd pain CTA BL Recs: DC Vanco IV Continue Zosyn IV Await path to resume care in am. (Esther Horton MD) Denise Fuller January 07, 2018 11:37 Esther Horton MD January 07, 2018 20:00
[2018-01-07 12:05] VITALS: BP 198/138; PULSE 88; RESP 19; TEMP 98.3; O2SAT 100
[2018-01-07] MEDS: IRON SUCROSE INJ 200 MG in SODIUM CHLORIDE 0.9% INJ 100 ML IV SCH (12:23)
[2018-01-07 13:30] VITALS: BP 185/90
--- NOTE | 2018-01-07 14:49 | HHI.PR ---
Subjective Remarks Patient is a 43-year-old male diabetic insulin requiring, hypertension who about 2 weeks prior to admission complaining complained of swelling of the right foot. Patient with fever and chills. Next day developed blister on the anterior aspect of the foot and sought consult with the PCP where it was initially told it was gout.. patient also states that he was also placed on Bactrim for 5 days. 4 days later with worsening swelling. Draining foul- smelling yellowish exudate minimal per . He was seen in follow-up by primary care physician and was sent here for further evaluation and management. Patient states good hypoglycemic awareness. He states that he was just also recently started on 7030 10 units twice a day. Patient complains of neuropathic pain for which he takes gabapentin. 5-15 Nursing reports patient having substantial pain. Otherwise no other medical deterioration since last night. Patient denies ever being put on a cholesterol medication in the past. 5-16 SP ANGIOGRAM TODAY WITH ANGIOPLASTY Patient states he "BOOTLEGS DM MEDICATIONS FROM FAMILY" WAS ALSO SMOKING PRIOR TO COMING TO THE HOSPITAL NEEDS TO CONTROL SUGARS AND STOP SMOKING DW RN AND PT AND CM AND FAMILY NEEDS DM EDUCATION 5-17 HTN NOT AT GOAL ADD NORVASC 5MG PO DAILY AM LABS DW ID AND RN AND PT AND FAMILY NEEDS TO HAVE TIGHT CONTROL OF SUGARS SP RIGHT 4TH TOE AMPUTATION ON VANCO AND ZOSYN Objective Vitals Vital Signs Date Time Temp Pulse Resp B/P (MAP) Pulse Ox O2 Delivery O2 Flow Rate FiO2 01/07/18 13:30 185/90 (121) 01/07/18 12:05 98.3 88 19 198/138 (158) 100 01/07/18 08:05 97.9 89 20 173/87 (115) 98 01/07/18 05:35 18 01/07/18 04:00 97.6 88 20 164/74 (104) 96 01/07/18 03:19 20 01/07/18 00:00 97.8 87 20 134/76 (95) 96 01/06/18 19:00 97.9 91 21 166/80 (108) 100 01/06/18 17:39 99 21 01/06/18 16:05 98.0 88 18 168/90 (116) 100 I/O 01/06/18 01/06/18 01/06/18 01/07/18 01/07/18 01/07/18 07:00 15:00 23:00 07:00 15:00 23:00 Intake Total 222 ml 410 ml 1570 ml 650 ml Output Total 2000 ml 600 ml Balance 222 ml 410 ml -430 ml 50 ml Intake Oral 222 ml 520 ml 600 ml IV Total 410 ml 1050 ml 50 ml Output Urine Total 2000 ml 600 ml # Voids 1 # Bowel Movements 0 1 Result Diagram: 01/07/18 0330 01/07/18 0330 Other Results Laboratory Tests Test 01/05/18 05:25 01/06/18 12:58 01/07/18 03:30 White Blood Count 13.7 TH/MM3 14.8 TH/MM3 Red Blood Count 3.49 MIL/MM3 3.19 MIL/MM3 Hemoglobin 8.8 GM/DL 8.1 GM/DL Hematocrit 26.3 % 24.2 % Mean Corpuscular Volume 75.4 FL 76.1 FL Mean Corpuscular Hemoglobin 25.1 PG 25.3 PG Mean Corpuscular Hemoglobin Concent 33.3 % 33.2 % Red Cell Distribution Width 14.3 % 14.1 % Platelet Count 439 TH/MM3 450 TH/MM3 Mean Platelet Volume 7.7 FL 7.7 FL Neutrophils (%) (Auto) 75.0 % 75.3 % Lymphocytes (%) (Auto) 14.9 % 14.7 % Monocytes (%) (Auto) 8.1 % 8.2 % Eosinophils (%) (Auto) 1.5 % 1.2 % Basophils (%) (Auto) 0.5 % 0.6 % Neutrophils # (Auto) 10.3 TH/MM3 11.2 TH/MM3 Lymphocytes # (Auto) 2.0 TH/MM3 2.2 TH/MM3 Monocytes # (Auto) 1.1 TH/MM3 1.2 TH/MM3 Eosinophils # (Auto) 0.2 TH/MM3 0.2 TH/MM3 Basophils # (Auto) 0.1 TH/MM3 0.1 TH/MM3 CBC Comment DIFF FINAL DIFF FINAL Differential Comment Blood Urea Nitrogen 17 MG/DL 14 MG/DL Creatinine 1.33 MG/DL 1.54 MG/DL Random Glucose 129 MG/DL 84 MG/DL Calcium Level 8.9 MG/DL 8.1 MG/DL Sodium Level 141 MEQ/L 142 MEQ/L Potassium Level 4.4 MEQ/L 4.3 MEQ/L Chloride Level 110 MEQ/L 111 MEQ/L Carbon Dioxide Level 23.5 MEQ/L 23.7 MEQ/L Anion Gap 8 MEQ/L 7 MEQ/L Estimat Glomerular Filtration Rate 72 ML/MIN 61 ML/MIN Hemoglobin A1c 14.3 % Iron Level 27 MCG/DL Total Iron Binding Capacity 172 MCG/DL Percent Iron Saturation 15.7 % Ferritin 259 NG/ML Triglycerides Level 180 MG/DL Cholesterol Level 166 MG/DL LDL Cholesterol 102 MG/DL HDL Cholesterol 27.6 MG/DL Cholesterol/HDL Ratio 6.01 RATIO Vancomycin Level Trough 21.3 MCG/ML Total Protein 7.0 GM/DL Albumin 1.9 GM/DL Phosphorus Level 3.4 MG/DL Magnesium Level 1.9 MG/DL Alkaline Phosphatase 140 U/L Aspartate Amino Transf (AST/SGOT) 16 U/L Alanine Aminotransferase (ALT/SGPT) 15 U/L Total Bilirubin 0.1 MG/DL Free Thyroxine 1.20 NG/DL Thyroid Stimulating Hormone 3rd Gen 1.760 uIU/ML Imaging Last Impressions Lower Extremity Ultrasound 01/06/18 0000 Signed Impressions: Service Date/Time: Saturday, January 06, 2018 17:05 - CONCLUSION: No DVT. Gibson Isaac MD Foot MRI 01/06/18 0000 Signed Impressions: Service Date/Time: Saturday, January 06, 2018 15:27 - CONCLUSION: Generalized edema with minimal enhancement in the operative bed, nonspecific. No evidence rales myelitis. Antonio Cole MD FACR Chest X-Ray 01/05/18 0600 Signed Impressions: Service Date/Time: Friday, January 05, 2018 09:18 - CONCLUSION: 1. No acute cardiopulmonary findings. Fausto Cole MD Lower Extremity CT 01/04/18 0000 Signed Impressions: Service Date/Time: Thursday, January 04, 2018 17:37 - CONCLUSION: 1. Soft tissue ulcer in the lateral proximal forefoot with subcutaneous air extending to the base of the fourth digit. No definite osseous abnormality to suggest osteomyelitis. Consider MRI examination if there is continued clinical concern. Giorgi Rider MD Foot X-Ray 01/04/18 0000 Signed Impressions: Service Date/Time: Thursday, January 04, 2018 12:43 - CONCLUSION: Negative for acute process. Antonio Cole MD FACR Objective Remarks GENERAL: Awake and alert and oriented 3 talkative and cooperative SKIN: Warm and dry. Right lower extremity is dressed HEAD: Atraumatic. Normocephalic. EYES: Pupils equal and round. No scleral icterus. No injection or drainage. Extraocular muscles intact ENT: No nasal bleeding or discharge. Mucous membranes pink and moist. Tongue is midline NECK: Trachea midline. No JVD. Supple CARDIOVASCULAR: Regular rate and rhythm. S1-S2 no S3 or S4 RESPIRATORY: No accessory muscle use. Clear to auscultation. Breath sounds equal bilaterally. GASTROINTESTINAL: Abdomen soft, non-tender, nondistended. Hepatic and splenic margins not palpable. Obese MUSCULOSKELETAL: Extremities without clubbing, cyanosis, or edema. No obvious deformities. Right lower extremity is dressed NEUROLOGICAL: Awake and alert. No obvious cranial nerve deficits. Motor grossly within normal limits. 4 out of 5 muscle strength in the arms and legs. Normal speech. PSYCHIATRIC: Appropriate mood and affect; insight and judgment normal. Procedures ANGIOGRAM 01-06 Moe Cullen MD DATE OF OPERATION: PREOPERATIVE DIAGNOSIS: Right lower extremity tissue loss, peripheral vascular disease. POSTOPERATIVE DIAGNOSIS: Right lower extremity tissue loss, peripheral vascular disease. PROCEDURE PERFORMED: 1. Aortogram with right lower extremity angiogram. 2. Right SFA and popliteal artery angioplasty with 5 mm balloon. 3. Left common femoral artery Angio-Seal. OPERATING SURGEON: Moe Cullen MD ANESTHESIA: Local with sedation. INDICATIONS: Mr. Garibay is a 42-year-old gentleman with right lower extremity tissue loss. He is taken to the operating room for angiographic evaluation and potential treatment. There was no prior catheter-based imaging available for my review. DESCRIPTION OF PROCEDURE: Informed consent was obtained from the patient. He was taken to the operating room and placed supine on the operating table. An appropriate timeout was taken to ensure the patient's identity, the operative site and planned procedure. The administration of antibiotics was not necessary as this is a clean procedure without the planned implantation of any foreign object. Everyone in the room agreed with timeout and we proceeded. His bilateral groins prepped and draped. Left groin was anesthetized with 1% lidocaine. A 21-gauge micropuncture needle was used to access the left common femoral artery, was exchanged using Seldinger technique through micropuncture sheath, which a 0.035 Glidewire was introduced. Micropuncture sheath was exchanged for a 4-Divehi sheath. A VCF catheter was placed over the wire and through the sheath and aortogram, pelvic arteriogram was obtained. The Glidewire was reintroduced and navigated down to the right common femoral artery and the VCF catheter was advanced over this and a right lower extremity arteriogram was obtained. The patient was systemically heparinized with 5000 units of IV Heparin. A 0.035 Ceballos wire was introduced down to the mid SFA and the VCF catheter and 4-Divehi sheath were removed and a 6-Divehi 55 cm Dimitry sheath was introduced. A CXI catheter was placed over the wire into the sheath and the wire was exchanged for a FUEL TECHNICIAN wire. Using the FUEL TECHNICIAN wire and CXI catheter we were able to navigate through the SFA lesion and the popliteal lesion. Both of these were angioplastied with a 5 x 200 and 5 x 80 balloon, respectively. The completion angiogram showed excellent result on recoil extravasation. We then did advance the catheter down to the popliteal artery. An angiogram was obtained. The wire, catheter and sheath were removed and the groin was closed with Angio-Seal. There were no complications. I was present and scrubbed for the entire procedure. INTERPRETATION OF IMAGES: The patient has a patent terminal aorta, common iliac arteries, hypogastric arteries and external iliac arteries, none of which have any hemodynamically significant stenoses. The right common femoral artery and profunda are patent without any hemodynamically significant stenosis. The proximal SFA is patent. The mid SFA has high-grade diffuse stenosis that was successfully angioplastied and the popliteal artery had a similar high-grade diffuse stenosis that was successfully angioplastied. The below knee popliteal artery occludes and there was no posterior tibial artery or peroneal artery proximally. The perigeniculate collaterals give rise to the posterior tibial artery in the mid to distal calf. , 09:14 AM Masoud Gates DPM DATE OF OPERATION: 01/05/2018 PREOPERATIVE DIAGNOSIS: Right fourth digit gangrene, abscess, diabetic foot infection. POSTOPERATIVE DIAGNOSIS: Right fourth digit gangrene, abscess, diabetic foot infection. PROCEDURE PERFORMED: Right fourth digit amputation, incision and drainage deep, right foot. INTRAOPERATIVE FINDINGS: Minimal bleeding. Foul odor at level of amputation site. S SPECIMENS: Fourth digit for pathology. Deep culture at amputation site for micro. ESTIMATED BLOOD LOSS: Less than 30 mL ANESTHESIA: General. DRAINS: None. TOURNIQUET: None. DISPOSITION: Returned to floor for vascular intervention and monitor of foot. May need wound VAC versus repetitive debridements versus amputation at a later date. JUSTIFICATION FOR PROCEDURE: A 42-year-old diabetic male with a history of smoking, was admitted. CT showed gas within the tissue at the base of the fourth digit. The patient was planned for vascular intervention; however, we wished to eradicate infection or at least debulk the infection first. The patient was educated on risks and benefits, need for more surgery, loss of limb. No guarantees were given or implied regarding the outcome. PROCEDURE IN DETAIL: Under mild sedation, the patient was brought into the operating room, placed on the operating table in supine position. Following the induction of general anesthesia, the patient's right lower extremity was scrubbed, prepped and draped in the usual aseptic fashion. The foot was elevated and examined. There was noted to be a necrotic, delayed capillary fill time, a putrid-smelling right fourth digit. A fishmouth mouth type incision was made disarticulating the digit down to the level of the joint. There were gas bubbles within the tissue. There was purulent drainage. There was a full-thickness eschar of the dorsum of the foot that had an odor. This was sharply unroofed down to the tendon sheath with exposed fourth metatarsal. There was no obvious signs of tracking deep within the plantar aspect of the foot or along the dorsal aspect of the foot. This was flushed with copious amounts of normal saline. Minimal Bovie and ligation was needed throughout the case. The wound was packed open, soft bandage applied. The patient was transferred from OR to PACU with all vital signs stable. The patient will be monitored after a vascular attempt. Overall prognosis is poor given the history of smoking and diabetes. I will see the patient within 1-2 days. Masoud B. Yajaira, DPM Medications and IVs Current Medications Morphine Sulfate (Morphine Inj) 4 mg ONCE ONCE IV PUSH Last administered on 13:34; Start 01/04/18 at 12:15; Stop 01/04/18 at 12:16; Status DC Ondansetron HCl (Zofran Odt) 4 mg ONCE ONCE PO Last administered on at 13:33; Start 01/04/18 at 12:15; Stop 01/04/18 at 12:16; Status DC Piperacillin Sod/ Tazobactam Sod 50 ml @ 100 mls/hr ONCE ONCE IV Last administered on 01/04/18at 13:34; Start 01/04/18 at 12:15; Stop 01/04/18 at 12:44 ; Status DC Vancomycin HCl 1000 mg/Sodium Chloride 250 ml @ 250 mls/hr ONCE ONCE IV Last administered on 01/04/18at 14:20; Start 01/04/18 at 12:15; Stop 01/04/18 at 13:14 ; Status DC Sodium Chloride 1,000 ml @ 1,000 mls/hr Q1H IV Last administered on 01/04/18at 13:34; Start 01/04/18 at 12:13; Stop 01/04/18 at 13:12; Status DC Aspirin (Aspirin Chew) 324 mg ONCE ONCE CHEW Last administered on 01/04/18at 13 :33; Start 01/04/18 at 13:15; Stop 01/04/18 at 13:16; Status DC Dextrose (D25w Inj) 10 ml ONCE ONCE IV PUSH Last administered on 01/04/18at 14: 28; Start 01/04/18 at 13:45; Stop 01/04/18 at 13:46; Status DC Sodium Chloride 1,000 ml @ 70 mls/hr [id number] IV Last administered on at 18:27; Start 01/04/18 at 15:00 Lisinopril (Prinivil) 10 mg DAILY PO Last administered on 01/07/18at 09:05; Start 01/05/18 at 09:00 Gabapentin (Neurontin) 300 mg TID PO Last administered on 01/07/18at 12:23; Start 01/04/18 at 18:00 Dextrose (D50w (Vial) Inj) 50 ml UNSCH PRN IV PUSH HYPOGLYCEMIA-SEE COMMENTS; Start 01/04/18 at 17:45; Stop 01/06/18 at 10:41; Status DC Glucagon (Glucagon Inj) 1 mg UNSCH PRN OTHER HYPOGLYCEMIA-SEE COMMENTS; Start 01/04/18 at 17:45; Stop 01/06/18 at 10:41; Status DC Insulin Aspart (NovoLOG SUPPLEMENTAL SCALE) 1 ACHS SLIDING SCALE SQ Last administered on 01/06/18at 07:45; Start 01/04/18 at 21:00; Stop 01/06/18 at 10:41 ; Status DC Piperacillin Sod/ Tazobactam Sod 50 ml @ 100 mls/hr Q6H IV ; Start 01/04/18 at 20:00; Status Cancel Pharmacy Profile Note 0 ml @ 0 mls/hr UNSCH OTHER ; Start 01/04/18 at 18:00 Vancomycin HCl 1000 mg/Sodium Chloride 250 ml @ 250 mls/hr Q12H IV ; Start at 06:00; Stop 01/05/18 at 06:00; Status DC Oxycodone/ Acetaminophen (Percocet 5-325 Mg) 1 tab Q6HR PRN PO PAIN SCALE 3 TO 5; Start 01/04/18 at 18:00 Oxycodone/ Acetaminophen (Percocet 7.5-325 Mg) 1 tab Q6H PRN PO PAIN SCALE 6 TO 10 Last administered on 01/07/18at 08:12; Start 01/04/18 at 18:00 Pantoprazole Sodium (Protonix) 20 mg DAILY PO Last administered on 01/07/18at 09 :05; Start 01/05/18 at 09:00 Vancomycin HCl 1250 mg/Sodium Chloride 262.5 ml @ 250 mls/hr Q12H IV Last administered on 01/06/18at 13:24; Start 01/05/18 at 01:00; Stop 01/06/18 at 15:21 ; Status DC Cefepime HCl 2000 mg/Sodium Chloride 100 ml @ 200 mls/hr Q12H IV Last administered on 01/05/18at 06:04; Start 01/04/18 at 18:00; Stop 01/05/18 at 12:37 ; Status DC Miscellaneous Information ([facility] [facility] Info) SPECIFIC LAB TO BE ROSALEE... ONCE ONCE .XX Last administered on 01/06/18at 12:45; Start 01/06/18 at 12:45; Stop 01/06/18 at 12:46; Status DC Zolpidem Tartrate (Ambien) 5 mg ONCE ONCE PO Last administered on 01/04/18at 22 :40; Start 01/04/18 at 22:15; Stop 01/04/18 at 22:16; Status DC Morphine Sulfate (Morphine Inj) 4 mg Q4H PRN IV PUSH BREAKTHROUGH PAIN Last administered on 01/07/18at 05:24; Start 01/05/18 at 10:15 Piperacillin Sod/ Tazobactam Sod 50 ml @ 100 mls/hr Q6H IV Last administered on 01/07/18at 07:58; Start 01/05/18 at 14:00 Aspirin (Ecotrin Ec) 81 mg DAILY PO Last administered on 01/07/18at 09:06; Start 01/06/18 at 09:00 Atorvastatin Calcium (Lipitor) 40 mg HS PO Last administered on 01/06/18at 20:53 ; Start 01/05/18 at 21:00 Iron Sucrose 200 mg/Sodium Chloride 110 ml @ 110 mls/hr DAILY IV Last administered on 01/07/18at 12:23; Start 01/05/18 at 15:00; Stop 01/07/18 at 09:59 ; Status DC Bupivacaine HCl (Marcaine Pf 0.25% Inj) 30 ml STK-MED ONCE .ROUTE ; Start at 16:45; Stop 01/05/18 at 16:46; Status DC Neomycin/Polymyxin (Neosporin G.u. Irr) 1 ml STK-MED ONCE .ROUTE ; Start at 16:55; Stop 01/05/18 at 16:56; Status DC Acetaminophen 100 ml @ As Directed STK-MED ONCE IV ; Start 01/05/18 at 18:17; Stop 01/05/18 at 18:18; Status DC Lactated Ringer's 1,000 ml @ 30 mls/hr Q24H PRN IV SEE LABEL COMMENTS; Start at 18:45; Stop 01/08/18 at 18:44 Sodium Chloride 500 ml @ 30 mls/hr [id number] PRN IV SEE LABEL COMMENTS; Start at 18:45; Stop 01/08/18 at 18:44 Povidone Iodine (Betadine 5% Antisepsis Kit) 1 applic CAREER SERVICES COORDINATOR PRN EACH NARE SEE LABEL COMMENTS; Start 01/05/18 at 18:45; Stop 01/08/18 at 18:44 Chlorhexidine Gluconate (Chlorhexidine 2% Cloth) 3 pack CAREER SERVICES COORDINATOR PRN TOPICAL SEE LABEL COMMENTS; Start 01/05/18 at 18:45; Stop 01/08/18 at 18:44 Midazolam HCl (Versed Inj) 2 mg STK-MED ONCE .ROUTE ; Start 01/05/18 at 19:26; Stop 01/05/18 at 19:27; Status DC Miscellaneous Information ([facility] ALL NURSING DEPARTME... UNSCH PRN .XX SEE LABEL COMMENTS; Start 01/05/18 at 20:30; Stop 01/06/18 at 20: 29; Status DC Fentanyl Citrate (fentaNYL INJ) 100 mcg STK-MED ONCE .ROUTE Last administered on 01/06/18at 08:04; Start 01/06/18 at 08:04; Stop 01/06/18 at 08:05; Status DC Midazolam HCl (Versed Inj) 5 mg STK-MED ONCE .ROUTE Last administered on at 08:04; Start 01/06/18 at 08:04; Stop 01/06/18 at 08:05; Status DC Heparin Sodium/ Sodium Chloride 2,000 ml @ As Directed STK-MED ONCE IV FLUSH ; Start 01/06/18 at 08:04; Stop 01/06/18 at 08:05; Status DC Heparin Sodium (Porcine) (Heparin Inj) 10,000 units STK-MED ONCE .ROUTE Last administered on 01/06/18at 08:29; Start 01/06/18 at 08:29; Stop 01/06/18 at 08:30 ; Status DC Clopidogrel Bisulfate (Plavix) 150 mg ONCE ONCE PO Last administered on at 09:15; Start 01/06/18 at 09:15; Stop 01/06/18 at 09:33; Status DC Clopidogrel Bisulfate (Plavix) 75 mg DAILY PO ; Start 01/08/18 at 09:00 Insulin Aspart Prota 70%/Aspart 30% (NovoLOG MIX 70/ 30 INJ) 30 units BID@0800, 1700 SQ Last administered on 01/07/18at 09:08; Start 01/06/18 at 17:00 Insulin Aspart (NovoLOG SUPPLEMENTAL SCALE) 1 ACHS SLIDING SCALE SQ Last administered on 01/06/18at 18:27; Start 01/06/18 at 12:00 Iohexol (OMNIPAQUE 350 INJ (Medical Office Secretary)) 100 ml STK-MED ONCE OTHER ; Start at 11:30; Stop 01/06/18 at 11:31; Status DC Vancomycin HCl 1500 mg/Sodium Chloride 515 ml @ 250 mls/hr Q18H IV Last administered on 01/07/18at 05:20; Start 01/07/18 at 06:00 Miscellaneous Information ([facility] Or[place] Info) SPECIFIC LAB TO BE DRAWN:VANCOMYCIN TROUGH DATE TO... ONCE ONCE .XX ; Start 01/09/18 at 11:45; Stop 01/09/18 at 11:46 Gadodiamide (Omniscan Pf Inj) 20 ml STK-MED ONCE IVCONTRAST Last administered on 01/06/18at 16:04; Start 01/06/18 at 16:04; Stop 01/06/18 at 16:05; Status DC Phenylephrine HCl (Neosynephrine/ NS 1000 Mcg/10ml Syr) 1,000 mcg STK-MED ONCE IV ; Start 01/05/18 at 12:00; Stop 01/07/18 at 10:56; Status DC Ephedrine Sulfate (ePHEDrine/NS 25 MG/5 ML SYR) 25 mg STK-MED ONCE IV ; Start at 12:00; Stop 01/07/18 at 10:56; Status DC Dexamethasone Sodium Phosphate (Decadron Inj) 4 mg STK-MED ONCE IV ; Start 01/05 at 12:00; Stop 01/07/18 at 10:56; Status DC Ondansetron HCl (Zofran Inj) 4 mg STK-MED ONCE IV ; Start 01/05/18 at 12:00; Stop 01/07/18 at 10:56; Status DC Amlodipine Besylate (Norvasc) 5 mg ONCE ONCE PO ; Start 01/07/18 at 14:45; Stop 01/07/18 at 14:46; Status UNV Amlodipine Besylate (Norvasc) 5 mg DAILY PO ; Start 01/08/18 at 09:00; Status UNV A/P Assessment and Plan 42-year-old male Sepsis secondary to diabetic right foot infection with dry gangrene 4th digit with possible abscess on exam and possible underlying OM -Blood cultures pending, see treatment below MSSA ON VANCO AND ZOSYN Suspected dry gangrene -Discussed with infectious disease, needs anaerobic and aerobic coverage, continue vancomycin and Zosyn -Podiatry plans for debridement 5-15 SP AMPUTATION Peripheral vascular disease -Vascular surgery plans intervention - -start Lipitor -Baby aspirin SP angioplasty January [address] Cullen Acute kidney injury - improving w/ IVF -BMP in AM Microcytic anemia -Show substantial iron deficiency, will start Venofer, obtain Hemoccult 3 Diabetes type 2 -Hold metformin for now, sliding scale with Accu-Chek SEVERELY UNCONTROLLED HGBA1C 14.3- WILL NEED INSULIN PROBABLY FROM [facility] Malignant medical noncompliance due to lack of insurance and uncontrolled diabetes Diabetic neuropathy -Continue on gabapentin Hypertension. -Continue lisinopril ADD NORVASX Hyperlipidemia started on Lipitor Continue on anticoagulation per vascular surgery now on aspirin and Plavix and Lipitor Malignant noncompliance due to monetary issues Tobacco abuse recommend cessation lifelong due to diabetes and severe peripheral vascular occlusive disease No pharmacological anticoagulation at this time given impending surgery, SCD on left lower extremity only given pathology on right lower external Discharge Planning Pending improvement Antonio Martell DO January 07, 2018 14:49
[2018-01-07] MEDS ORDERED: amLODIPine BESYLATE 5 MG TAB PO ONE (15:15)
[2018-01-07 16:05] VITALS: BP 164/83; PULSE 97; RESP 20; TEMP 98.1; O2SAT 97
[2018-01-07] MEDS: ATORVASTATIN 40 MG TAB PO SCH (21:37)
[2018-01-08] MEDS: oxyCODONE/ACETAMINOPHEN 7.5 MG/325 MG TAB PO PRN ×3 (03:40→18:29)
[2018-01-08] MEDS: PIPERACIL-TAZO 3.375 GM PREMIX 50 ML IV SCH ×3 (03:41→14:55)
[2018-01-08] MEDS: SODIUM CHLOR 0.9% 1000 ML INJ 1,000 ML IV SCH (03:44)
[2018-01-08 04:00] VITALS: BP 136/78; PULSE 99; RESP 17; TEMP 98.7; O2SAT 98
[2018-01-08 05:24] LABS: AUTOMATED NEUTROPHIL # 11.1 TH/MM3 (1.8-7.7); BASOPHIL # 0.1 TH/MM3 (0-0.2); BASOPHIL % 0.5 % (0.0-2.0); EOSINOPHIL # 0.2 TH/MM3 (0-0.4); EOSINOPHIL % 1.7 % (0.0-4.0); HEMATOCRIT 24.6 % (39.0-51.0); HEMOGLOBIN 8.1 GM/DL (13.0-17.0); LYMPH % 12.6 % (9.0-44.0); LYMPHOCYTE # 1.8 TH/MM3 (1.0-4.8); MEAN CELL VOLUME 76.3 FL (80.0-100.0); MEAN CORPUSCULAR HEMOGLOBIN 25.3 PG (27.0-34.0); MEAN CORPUSCULAR HGB CONC 33.2 % (32.0-36.0); MEAN PLATELET VOLUME 7.6 FL (7.0-11.0); MONOCYTE # 1.3 TH/MM3 (0-0.9); NEUT % 76.2 % (16.0-70.0); PLATELET COUNT 441 TH/MM3 (150-450); RED BLOOD COUNT 3.22 MIL/MM3 (4.50-5.90); RED CELL DISTRIBUTION WIDTH 14.3 % (11.6-17.2); WHITE BLOOD COUNT 14.6 TH/MM3 (4.0-11.0)
[2018-01-08 05:34] LABS: ALBUMIN 1.9 GM/DL (3.4-5.0); ALT (GPT) 15 U/L (12-78); AST (GOT) 19 U/L (15-37); BICARBONATE 23.1 MEQ/L (21.0-32.0); BLOOD UREA NITROGEN 16 MG/DL (7-18); CALCIUM 8.2 MG/DL (8.5-10.1); CHLORIDE 111 MEQ/L (98-107); CREATININE 1.58 MG/DL (0.60-1.30); GLOMERULAR FILTRATION RATE 59 ML/MIN (>89); GLUCOSE,RANDOM 119 MG/DL (74-106); MAGNESIUM 1.9 MG/DL (1.5-2.5); PHOSPHORUS 3.1 MG/DL (2.5-4.9); SODIUM (NA) 142 MEQ/L (136-145)
[2018-01-08 05:36] LABS: ALKALINE PHOSPHATASE 153 U/L (45-117); TOTAL BILIRUBIN ADULT 0.1 MG/DL (0.2-1.0); TOTAL PROTEIN 6.9 GM/DL (6.4-8.2)
[2018-01-08] MEDS: MORPHINE SULFATE 4 MG/ML INJ IV PUSH PRN (06:43)
[2018-01-08 07:55] VITALS: BP 150/78; PULSE 84; RESP 18; TEMP 99; O2SAT 98
[2018-01-08] MEDS: INSULIN ASPART SUPPLEMENTAL SCALE SQ SCH ×4 (08:00→20:30)
[2018-01-08] MEDS: PANTOPRAZOLE SOD 20 MG DELAYED RELEASE TAB PO SCH (09:05)
[2018-01-08] MEDS: LISINOPRIL 10 MG TAB PO SCH (09:05)
[2018-01-08] MEDS: CLOPIDOGREL 75 MG TAB PO SCH (09:05)
[2018-01-08] MEDS: GABAPENTIN 300 MG CAP PO SCH ×3 (09:05→17:10)
[2018-01-08] MEDS: ASPIRIN EC 81 MG TABEC PO SCH (09:05)
[2018-01-08] MEDS: INSULIN ASPAR PROT 70/30 1,000 UNITS/10 ML VIAL SQ SCH ×2 (09:06→18:26)
[2018-01-08] MEDS: amLODIPine BESYLATE 5 MG TAB PO SCH (09:06)
--- NOTE | 2018-01-08 10:02 | PD.VS.PN ---
Subjective POD #: 2 Procedure(s): Aortogram w/ R LE angiogram R SFA and popliteal angioplasty (5mm) L ITINERANT TEACHER ASSISTANT Angioseal Subjective/Hospital Course 42/M in NAD Pain controlled Pt resting w/ at the BS Objective Vitals/I&O Date Time Temp Pulse Resp B/P (MAP) Pulse Ox O2 Delivery O2 Flow Rate FiO2 01/08/18 07:55 99.0 84 18 150/78 (102) 98 01/08/18 04:00 98.7 99 17 136/78 (97) 98 01/07/18 18:01 21 01/07/18 16:05 98.1 97 20 164/83 (110) 97 01/07/18 13:30 185/90 (121) 01/07/18 12:05 98.3 88 19 198/138 (158) 100 01/08/18 01/08/18 01/08/18 07:00 15:00 23:00 Intake Total 1290 ml Balance 1290 ml Laboratory Laboratory Tests Test 01/08/18 04:42 White Blood Count 14.6 Red Blood Count 3.22 Hemoglobin 8.1 Hematocrit 24.6 Mean Corpuscular Volume 76.3 Mean Corpuscular Hemoglobin 25.3 Mean Corpuscular Hemoglobin Concent 33.2 Red Cell Distribution Width 14.3 Platelet Count 441 Mean Platelet Volume 7.6 Neutrophils (%) (Auto) 76.2 Lymphocytes (%) (Auto) 12.6 Monocytes (%) (Auto) 9.0 Eosinophils (%) (Auto) 1.7 Basophils (%) (Auto) 0.5 Neutrophils # (Auto) 11.1 Lymphocytes # (Auto) 1.8 Monocytes # (Auto) 1.3 Eosinophils # (Auto) 0.2 Basophils # (Auto) 0.1 CBC Comment DIFF FINAL Differential Comment Blood Urea Nitrogen 16 Creatinine 1.58 Random Glucose 119 Total Protein 6.9 Albumin 1.9 Calcium Level 8.2 Phosphorus Level 3.1 Magnesium Level 1.9 Alkaline Phosphatase 153 Aspartate Amino Transf (AST/SGOT) 19 Alanine Aminotransferase (ALT/SGPT) 15 Total Bilirubin 0.1 Sodium Level 142 Potassium Level 4.3 Chloride Level 111 Carbon Dioxide Level 23.1 Anion Gap 8 Estimat Glomerular Filtration Rate 59 Date/Time Source Procedure Growth Status 01/04/18 12:40 Blood Peripheral Aerobic Blood Culture - Preliminary NO GROWTH IN 3 DAYS Resulted 01/04/18 12:40 Blood Peripheral Anaerobic Blood Culture - Preliminary NO GROWTH IN 3 DAYS Resulted 01/05/18 17:05 Wound Foot Fungal Smear - Final NO FUNGAL ELEMENTS SEEN. Resulted 01/05/18 17:05 Wound Foot Fungal Culture Pending Resulted Assessment and Plan Assessment: (1) Peripheral vascular disease Status: Acute (2) Diabetic foot infection Status: Acute Plan Plan Discussed w/ pt/ R LE distal bypass planning for revascularization Questions answered Pt scheduled for a RIGHT LE distal bypass on 01/12/18 w/ Dr. Alyse Caldwell SENIOR PRODUCT ENGINEER [facility] [phone] Kasey Caldwell January 08, 2018 10:02
[2018-01-08 12:20] VITALS: BP 168/88; PULSE 95; RESP 20; TEMP 98.9; O2SAT 98
--- NOTE | 2018-01-08 14:20 | HHI.PR ---
Subjective Remarks Patient is a 43-year-old male diabetic insulin requiring, hypertension who about 2 weeks prior to admission complaining complained of swelling of the right foot. Patient with fever and chills. Next day developed blister on the anterior aspect of the foot and sought consult with the PCP where it was initially told it was gout.. patient also states that he was also placed on Bactrim for 5 days. 4 days later with worsening swelling. Draining foul- smelling yellowish exudate minimal per . He was seen in follow-up by primary care physician and was sent here for further evaluation and management. Patient states good hypoglycemic awareness. He states that he was just also recently started on 7030 10 units twice a day. Patient complains of neuropathic pain for which he takes gabapentin. 5-15 Nursing reports patient having substantial pain. Otherwise no other medical deterioration since last night. Patient denies ever being put on a cholesterol medication in the past. 5-16 SP ANGIOGRAM TODAY WITH ANGIOPLASTY Patient states he "BOOTLEGS DM MEDICATIONS FROM FAMILY" WAS ALSO SMOKING PRIOR TO COMING TO THE HOSPITAL NEEDS TO CONTROL SUGARS AND STOP SMOKING DW RN AND PT AND CM AND FAMILY NEEDS DM EDUCATION 5-17 HTN NOT AT GOAL ADD NORVASC 5MG PO DAILY AM LABS DW ID AND RN AND PT AND FAMILY NEEDS TO HAVE TIGHT CONTROL OF SUGARS SP RIGHT 4TH TOE AMPUTATION ON VANCO AND ZOSYN 18 for surgery with VASCULAR NEXT WEEK COMPLAINS OF CONSTIPATION DW RN AND PT Objective Vitals Vital Signs Date Time Temp Pulse Resp B/P (MAP) Pulse Ox O2 Delivery O2 Flow Rate FiO2 01/08/18 12:20 98.9 95 20 168/88 (114) 98 01/08/18 10:58 21 01/08/18 07:55 99.0 84 18 150/78 (102) 98 01/08/18 04:00 98.7 99 17 136/78 (97) 98 01/07/18 18:01 21 01/07/18 16:05 98.1 97 20 164/83 (110) 97 I/O 01/07/18 01/07/18 01/07/18 01/08/18 01/08/18 01/08/18 06:59 14:59 22:59 06:59 14:59 22:59 Intake Total 650 ml 470 ml 1290 ml Output Total 600 ml 900 ml Balance 50 ml -430 ml 1290 ml Intake Oral 600 ml 420 ml 240 ml IV Total 50 ml 50 ml 1050 ml Output Urine Total 600 ml 900 ml # Voids 4 # Bowel Movements 0 0 Result Diagram: 01/08/18 0442 01/08/18 0442 Other Results Laboratory Tests Test 01/06/18 12:58 01/07/18 03:30 01/08/18 04:42 Vancomycin Level Trough 21.3 MCG/ML White Blood Count 14.8 TH/MM3 14.6 TH/MM3 Red Blood Count 3.19 MIL/MM3 3.22 MIL/MM3 Hemoglobin 8.1 GM/DL 8.1 GM/DL Hematocrit 24.2 % 24.6 % Mean Corpuscular Volume 76.1 FL 76.3 FL Mean Corpuscular Hemoglobin 25.3 PG 25.3 PG Mean Corpuscular Hemoglobin Concent 33.2 % 33.2 % Red Cell Distribution Width 14.1 % 14.3 % Platelet Count 450 TH/MM3 441 TH/MM3 Mean Platelet Volume 7.7 FL 7.6 FL Neutrophils (%) (Auto) 75.3 % 76.2 % Lymphocytes (%) (Auto) 14.7 % 12.6 % Monocytes (%) (Auto) 8.2 % 9.0 % Eosinophils (%) (Auto) 1.2 % 1.7 % Basophils (%) (Auto) 0.6 % 0.5 % Neutrophils # (Auto) 11.2 TH/MM3 11.1 TH/MM3 Lymphocytes # (Auto) 2.2 TH/MM3 1.8 TH/MM3 Monocytes # (Auto) 1.2 TH/MM3 1.3 TH/MM3 Eosinophils # (Auto) 0.2 TH/MM3 0.2 TH/MM3 Basophils # (Auto) 0.1 TH/MM3 0.1 TH/MM3 CBC Comment DIFF FINAL DIFF FINAL Differential Comment Blood Urea Nitrogen 14 MG/DL 16 MG/DL Creatinine 1.54 MG/DL 1.58 MG/DL Random Glucose 84 MG/DL 119 MG/DL Total Protein 7.0 GM/DL 6.9 GM/DL Albumin 1.9 GM/DL 1.9 GM/DL Calcium Level 8.1 MG/DL 8.2 MG/DL Phosphorus Level 3.4 MG/DL 3.1 MG/DL Magnesium Level 1.9 MG/DL 1.9 MG/DL Alkaline Phosphatase 140 U/L 153 U/L Aspartate Amino Transf (AST/SGOT) 16 U/L 19 U/L Alanine Aminotransferase (ALT/SGPT) 15 U/L 15 U/L Total Bilirubin 0.1 MG/DL 0.1 MG/DL Sodium Level 142 MEQ/L 142 MEQ/L Potassium Level 4.3 MEQ/L 4.3 MEQ/L Chloride Level 111 MEQ/L 111 MEQ/L Carbon Dioxide Level 23.7 MEQ/L 23.1 MEQ/L Anion Gap 7 MEQ/L 8 MEQ/L Estimat Glomerular Filtration Rate 61 ML/MIN 59 ML/MIN Free Thyroxine 1.20 NG/DL Thyroid Stimulating Hormone 3rd Gen 1.760 uIU/ML Imaging Last Impressions Lower Extremity Ultrasound 01/06/18 0000 Signed Impressions: Service Date/Time: Saturday, January 06, 2018 17:05 - CONCLUSION: No DVT. Gibson Isaac MD Foot MRI 01/06/18 0000 Signed Impressions: Service Date/Time: Saturday, January 06, 2018 15:27 - CONCLUSION: Generalized edema with minimal enhancement in the operative bed, nonspecific. No evidence rales myelitis. Antonio Cole MD FACR Chest X-Ray 01/05/18 0600 Signed Impressions: Service Date/Time: Friday, January 05, 2018 09:18 - CONCLUSION: 1. No acute cardiopulmonary findings. Fausto Cole MD Lower Extremity CT 01/04/18 0000 Signed Impressions: Service Date/Time: Thursday, January 04, 2018 17:37 - CONCLUSION: 1. Soft tissue ulcer in the lateral proximal forefoot with subcutaneous air extending to the base of the fourth digit. No definite osseous abnormality to suggest osteomyelitis. Consider MRI examination if there is continued clinical concern. Giorgi Rider MD Foot X-Ray 01/04/18 0000 Signed Impressions: Service Date/Time: Thursday, January 04, 2018 12:43 - CONCLUSION: Negative for acute process. Antonio Cole MD FACR Objective Remarks GENERAL: Awake and alert and oriented 3 talkative and cooperative SKIN: Warm and dry. Right lower extremity is dressed HEAD: Atraumatic. Normocephalic. EYES: Pupils equal and round. No scleral icterus. No injection or drainage. Extraocular muscles intact ENT: No nasal bleeding or discharge. Mucous membranes pink and moist. Tongue is midline NECK: Trachea midline. No JVD. Supple CARDIOVASCULAR: Regular rate and rhythm. S1-S2 no S3 or S4 RESPIRATORY: No accessory muscle use. Clear to auscultation. Breath sounds equal bilaterally. GASTROINTESTINAL: Abdomen soft, non-tender, nondistended. Hepatic and splenic margins not palpable. Obese MUSCULOSKELETAL: Extremities without clubbing, cyanosis, or edema. No obvious deformities. Right lower extremity is dressed NEUROLOGICAL: Awake and alert. No obvious cranial nerve deficits. Motor grossly within normal limits. 4 out of 5 muscle strength in the arms and legs. Normal speech. PSYCHIATRIC: Appropriate mood and affect; insight and judgment normal. Procedures ANGIOGRAM 01-06 Moe Cullen MD DATE OF OPERATION: PREOPERATIVE DIAGNOSIS: Right lower extremity tissue loss, peripheral vascular disease. POSTOPERATIVE DIAGNOSIS: Right lower extremity tissue loss, peripheral vascular disease. PROCEDURE PERFORMED: 1. Aortogram with right lower extremity angiogram. 2. Right SFA and popliteal artery angioplasty with 5 mm balloon. 3. Left common femoral artery Angio-Seal. OPERATING SURGEON: Moe Cullen MD ANESTHESIA: Local with sedation. INDICATIONS: Mr. Garibay is a 42-year-old gentleman with right lower extremity tissue loss. He is taken to the operating room for angiographic evaluation and potential treatment. There was no prior catheter-based imaging available for my review. DESCRIPTION OF PROCEDURE: Informed consent was obtained from the patient. He was taken to the operating room and placed supine on the operating table. An appropriate timeout was taken to ensure the patient's identity, the operative site and planned procedure. The administration of antibiotics was not necessary as this is a clean procedure without the planned implantation of any foreign object. Everyone in the room agreed with timeout and we proceeded. His bilateral groins prepped and draped. Left groin was anesthetized with 1% lidocaine. A 21-gauge micropuncture needle was used to access the left common femoral artery, was exchanged using Seldinger technique through micropuncture sheath, which a 0.035 Glidewire was introduced. Micropuncture sheath was exchanged for a 4-Cymraes sheath. A VCF catheter was placed over the wire and through the sheath and aortogram, pelvic arteriogram was obtained. The Glidewire was reintroduced and navigated down to the right common femoral artery and the VCF catheter was advanced over this and a right lower extremity arteriogram was obtained. The patient was systemically heparinized with 5000 units of IV Heparin. A 0.035 Ceballos wire was introduced down to the mid SFA and the VCF catheter and 4-Cymraes sheath were removed and a 6-Cymraes 55 cm Dimitry sheath was introduced. A CXI catheter was placed over the wire into the sheath and the wire was exchanged for a CELERY STRIPPER wire. Using the CELERY STRIPPER wire and CXI catheter we were able to navigate through the SFA lesion and the popliteal lesion. Both of these were angioplastied with a 5 x 200 and 5 x 80 balloon, respectively. The completion angiogram showed excellent result on recoil extravasation. We then did advance the catheter down to the popliteal artery. An angiogram was obtained. The wire, catheter and sheath were removed and the groin was closed with Angio-Seal. There were no complications. I was present and scrubbed for the entire procedure. INTERPRETATION OF IMAGES: The patient has a patent terminal aorta, common iliac arteries, hypogastric arteries and external iliac arteries, none of which have any hemodynamically significant stenoses. The right common femoral artery and profunda are patent without any hemodynamically significant stenosis. The proximal SFA is patent. The mid SFA has high-grade diffuse stenosis that was successfully angioplastied and the popliteal artery had a similar high-grade diffuse stenosis that was successfully angioplastied. The below knee popliteal artery occludes and there was no posterior tibial artery or peroneal artery proximally. The perigeniculate collaterals give rise to the posterior tibial artery in the mid to distal calf. , 09:14 AM Masoud Gates DPM DATE OF OPERATION: 01/05/2018 PREOPERATIVE DIAGNOSIS: Right fourth digit gangrene, abscess, diabetic foot infection. POSTOPERATIVE DIAGNOSIS: Right fourth digit gangrene, abscess, diabetic foot infection. PROCEDURE PERFORMED: Right fourth digit amputation, incision and drainage deep, right foot. INTRAOPERATIVE FINDINGS: Minimal bleeding. Foul odor at level of amputation site. S SPECIMENS: Fourth digit for pathology. Deep culture at amputation site for micro. ESTIMATED BLOOD LOSS: Less than 30 mL ANESTHESIA: General. DRAINS: None. TOURNIQUET: None. DISPOSITION: Returned to floor for vascular intervention and monitor of foot. May need wound VAC versus repetitive debridements versus amputation at a later date. JUSTIFICATION FOR PROCEDURE: A 42-year-old diabetic male with a history of smoking, was admitted. CT showed gas within the tissue at the base of the fourth digit. The patient was planned for vascular intervention; however, we wished to eradicate infection or at least debulk the infection first. The patient was educated on risks and benefits, need for more surgery, loss of limb. No guarantees were given or implied regarding the outcome. PROCEDURE IN DETAIL: Under mild sedation, the patient was brought into the operating room, placed on the operating table in supine position. Following the induction of general anesthesia, the patient's right lower extremity was scrubbed, prepped and draped in the usual aseptic fashion. The foot was elevated and examined. There was noted to be a necrotic, delayed capillary fill time, a putrid-smelling right fourth digit. A fishmouth mouth type incision was made disarticulating the digit down to the level of the joint. There were gas bubbles within the tissue. There was purulent drainage. There was a full-thickness eschar of the dorsum of the foot that had an odor. This was sharply unroofed down to the tendon sheath with exposed fourth metatarsal. There was no obvious signs of tracking deep within the plantar aspect of the foot or along the dorsal aspect of the foot. This was flushed with copious amounts of normal saline. Minimal Bovie and ligation was needed throughout the case. The wound was packed open, soft bandage applied. The patient was transferred from OR to PACU with all vital signs stable. The patient will be monitored after a vascular attempt. Overall prognosis is poor given the history of smoking and diabetes. I will see the patient within 1-2 days. Masoud Gates, CHERISE Medications and IVs Current Medications Morphine Sulfate (Morphine Inj) 4 mg ONCE ONCE IV PUSH Last administered on at 13:34; Start 01/04/18 at 12:15; Stop 01/04/18 at 12:16; Status DC Ondansetron HCl (Zofran Odt) 4 mg ONCE ONCE PO Last administered on at 13:33; Start 01/04/18 at 12:15; Stop 01/04/18 at 12:16; Status DC Piperacillin Sod/ Tazobactam Sod 50 ml @ 100 mls/hr ONCE ONCE IV Last administered on 01/04/18at 13:34; Start 01/04/18 at 12:15; Stop 01/04/18 at 12:44 ; Status DC Vancomycin HCl 1000 mg/Sodium Chloride 250 ml @ 250 mls/hr ONCE ONCE IV Last administered on 01/04/18at 14:20; Start 01/04/18 at 12:15; Stop 01/04/18 at 13:14 ; Status DC Sodium Chloride 1,000 ml @ 1,000 mls/hr Q1H IV Last administered on 01/04/18at 13:34; Start 01/04/18 at 12:13; Stop 01/04/18 at 13:12; Status DC Aspirin (Aspirin Chew) 324 mg ONCE ONCE CHEW Last administered on 01/04/18at 13 :33; Start 01/04/18 at 13:15; Stop 01/04/18 at 13:16; Status DC Dextrose (D25w Inj) 10 ml ONCE ONCE IV PUSH Last administered on 01/04/18at 14: 28; Start 01/04/18 at 13:45; Stop 01/04/18 at 13:46; Status DC Sodium Chloride 1,000 ml @ 70 mls/hr [id number] IV Last administered on at 03:44; Start 01/04/18 at 15:00 Lisinopril (Prinivil) 10 mg DAILY PO Last administered on 01/08/18at 09:05; Start 01/05/18 at 09:00 Gabapentin (Neurontin) 300 mg TID PO Last administered on 01/08/18at 12:06; Start 01/04/18 at 18:00 Dextrose (D50w (Vial) Inj) 50 ml UNSCH PRN IV PUSH HYPOGLYCEMIA-SEE COMMENTS; Start 01/04/18 at 17:45; Stop 01/06/18 at 10:41; Status DC Glucagon (Glucagon Inj) 1 mg UNSCH PRN OTHER HYPOGLYCEMIA-SEE COMMENTS; Start 01/04/18 at 17:45; Stop 01/06/18 at 10:41; Status DC Insulin Aspart (NovoLOG SUPPLEMENTAL SCALE) 1 ACHS SLIDING SCALE SQ Last administered on 01/06/18at 07:45; Start 01/04/18 at 21:00; Stop 01/06/18 at 10:41 ; Status DC Piperacillin Sod/ Tazobactam Sod 50 ml @ 100 mls/hr Q6H IV ; Start 01/04/18 at 20:00; Status Cancel Pharmacy Profile Note 0 ml @ 0 mls/hr UNSCH OTHER ; Start 01/04/18 at 18:00; Stop 01/07/18 at 14:48; Status DC Vancomycin HCl 1000 mg/Sodium Chloride 250 ml @ 250 mls/hr Q12H IV ; Start at 06:00; Stop 01/05/18 at 06:00; Status DC Oxycodone/ Acetaminophen (Percocet 5-325 Mg) 1 tab Q6HR PRN PO PAIN SCALE 3 TO 5; Start 01/04/18 at 18:00 Oxycodone/ Acetaminophen (Percocet 7.5-325 Mg) 1 tab Q6H PRN PO PAIN SCALE 6 TO 10 Last administered on 01/08/18at 12:06; Start 01/04/18 at 18:00 Pantoprazole Sodium (Protonix) 20 mg DAILY PO Last administered on 01/08/18at 09 :05; Start 01/05/18 at 09:00 Vancomycin HCl 1250 mg/Sodium Chloride 262.5 ml @ 250 mls/hr Q12H IV Last administered on 01/06/18at 13:24; Start 01/05/18 at 01:00; Stop 01/06/18 at 15:21 ; Status DC Cefepime HCl 2000 mg/Sodium Chloride 100 ml @ 200 mls/hr Q12H IV Last administered on 01/05/18at 06:04; Start 01/04/18 at 18:00; Stop 01/05/18 at 12:37 ; Status DC Miscellaneous Information ([facility] [facility] Ordered Lab Info) SPECIFIC LAB TO BE ROSALEE... ONCE ONCE .XX Last administered on 01/06/18at 12:45; Start 01/06/18 at 12:45; Stop 01/06/18 at 12:46; Status DC Zolpidem Tartrate (Ambien) 5 mg ONCE ONCE PO Last administered on 01/04/18at 22 :40; Start 01/04/18 at 22:15; Stop 01/04/18 at 22:16; Status DC Morphine Sulfate (Morphine Inj) 4 mg Q4H PRN IV PUSH BREAKTHROUGH PAIN Last administered on 01/08/18at 06:43; Start 01/05/18 at 10:15 Piperacillin Sod/ Tazobactam Sod 50 ml @ 100 mls/hr Q6H IV Last administered on 01/07/18at 14:49; Start 01/05/18 at 14:00; Stop 01/07/18 at 17:46; Status DC Aspirin (Ecotrin Ec) 81 mg DAILY PO Last administered on 01/08/18at 09:05; Start 01/06/18 at 09:00 Atorvastatin Calcium (Lipitor) 40 mg HS PO Last administered on 01/07/18at 21:37 ; Start 01/05/18 at 21:00 Iron Sucrose 200 mg/Sodium Chloride 110 ml @ 110 mls/hr DAILY IV Last administered on 01/07/18at 12:23; Start 01/05/18 at 15:00; Stop 01/07/18 at 09:59 ; Status DC Bupivacaine HCl (Marcaine Pf 0.25% Inj) 30 ml STK-MED ONCE .ROUTE ; Start at 16:45; Stop 01/05/18 at 16:46; Status DC Neomycin/Polymyxin (Neosporin G.u. Irr) 1 ml STK-MED ONCE .ROUTE ; Start at 16:55; Stop 01/05/18 at 16:56; Status DC Acetaminophen 100 ml @ As Directed STK-MED ONCE IV ; Start 01/05/18 at 18:17; Stop 01/05/18 at 18:18; Status DC Lactated Ringer's 1,000 ml @ 30 mls/hr Q24H PRN IV SEE LABEL COMMENTS; Start at 18:45; Stop 01/08/18 at 18:44 Sodium Chloride 500 ml @ 30 mls/hr [id number] PRN IV SEE LABEL COMMENTS; Start at 18:45; Stop 01/08/18 at 18:44 Povidone Iodine (Betadine 5% Antisepsis Kit) 1 applic COACH TOUR DRIVER PRN EACH NARE SEE LABEL COMMENTS; Start 01/05/18 at 18:45; Stop 01/08/18 at 18:44 Chlorhexidine Gluconate (Chlorhexidine 2% Cloth) 3 pack COACH TOUR DRIVER PRN TOPICAL SEE LABEL COMMENTS; Start 01/05/18 at 18:45; Stop 01/08/18 at 18:44 Midazolam HCl (Versed Inj) 2 mg STK-MED ONCE .ROUTE ; Start 01/05/18 at 19:26; Stop 01/05/18 at 19:27; Status DC Miscellaneous Information ([facility] Nursing Information) ALL NURSING DEPARTME... UNSCH PRN .XX SEE LABEL COMMENTS; Start 01/05/18 at 20:30; Stop 01/06/18 at 20: 29; Status DC Fentanyl Citrate (fentaNYL INJ) 100 mcg STK-MED ONCE .ROUTE Last administered on 01/06/18at 08:04; Start 01/06/18 at 08:04; Stop 01/06/18 at 08:05; Status DC Midazolam HCl (Versed Inj) 5 mg STK-MED ONCE .ROUTE Last administered on at 08:04; Start 01/06/18 at 08:04; Stop 01/06/18 at 08:05; Status DC Heparin Sodium/ Sodium Chloride 2,000 ml @ As Directed STK-MED ONCE IV FLUSH ; Start 01/06/18 at 08:04; Stop 01/06/18 at 08:05; Status DC Heparin Sodium (Porcine) (Heparin Inj) 10,000 units STK-MED ONCE .ROUTE Last administered on 01/06/18at 08:29; Start 01/06/18 at 08:29; Stop 01/06/18 at 08:30 ; Status DC Clopidogrel Bisulfate (Plavix) 150 mg ONCE ONCE PO Last administered on at 09:15; Start 01/06/18 at 09:15; Stop 01/06/18 at 09:33; Status DC Clopidogrel Bisulfate (Plavix) 75 mg DAILY PO Last administered on 01/08/18at 09 :05; Start 01/08/18 at 09:00 Insulin Aspart Prota 70%/Aspart 30% (NovoLOG MIX 70/ 30 INJ) 30 units BID@0800, 1700 SQ Last administered on 01/08/18at 09:06; Start 01/06/18 at 17:00 Insulin Aspart (NovoLOG SUPPLEMENTAL SCALE) 1 ACHS SLIDING SCALE SQ Last administered on 01/07/18at 21:39; Start 01/06/18 at 12:00 Iohexol (OMNIPAQUE 350 INJ (Doors Prefitter)) 100 ml STK-MED ONCE OTHER ; Start at 11:30; Stop 01/06/18 at 11:31; Status DC Vancomycin HCl 1500 mg/Sodium Chloride 515 ml @ 250 mls/hr Q18H IV Last administered on 01/07/18at 05:20; Start 01/07/18 at 06:00; Stop 01/07/18 at 14:48 ; Status DC Miscellaneous Information ([facility] Ordered Lab Info) SPECIFIC LAB TO BE DRAWN:VANCOMYCIN TROUGH DATE TO... ONCE ONCE .XX ; Start 01/09/18 at 11:45; Stop 01/09/18 at 11:46; Status Cancel Gadodiamide (Omniscan Pf Inj) 20 ml STK-MED ONCE IVCONTRAST Last administered on 01/06/18at 16:04; Start 01/06/18 at 16:04; Stop 01/06/18 at 16:05; Status DC Phenylephrine HCl (Neosynephrine/ NS 1000 Mcg/10ml Syr) 1,000 mcg STK-MED ONCE IV ; Start 01/05/18 at 12:00; Stop 01/07/18 at 10:56; Status DC Ephedrine Sulfate (ePHEDrine/NS 25 MG/5 ML SYR) 25 mg STK-MED ONCE IV ; Start at 12:00; Stop 01/07/18 at 10:56; Status DC Dexamethasone Sodium Phosphate (Decadron Inj) 4 mg STK-MED ONCE IV ; Start 01/05 at 12:00; Stop 01/07/18 at 10:56; Status DC Ondansetron HCl (Zofran Inj) 4 mg STK-MED ONCE IV ; Start 01/05/18 at 12:00; Stop 01/07/18 at 10:56; Status DC Amlodipine Besylate (Norvasc) 5 mg ONCE ONCE PO Last administered on at 15:23; Start 01/07/18 at 15:15; Stop 01/07/18 at 15:16; Status DC Amlodipine Besylate (Norvasc) 5 mg DAILY PO Last administered on 01/08/18at 09: 06; Start 01/08/18 at 09:00 Clonidine (Catapres) 0.1 mg Q4H PRN PO SBP>160, DBP>90; Start 01/07/18 at 15:45 Piperacillin Sod/ Tazobactam Sod 50 ml @ 100 mls/hr Q6H IV Last administered on 01/08/18at 09:06; Start 01/07/18 at 21:00 A/P Problem List: (1) Leukocytosis ICD Code: D72.829 - Elevated white blood cell count, unspecified Status: Acute (2) Peripheral vascular disease ICD Code: I73.9 - Peripheral vascular disease, unspecified Status: Acute (3) Diabetic foot infection ICD Code: E11.628 - Type 2 diabetes mellitus with other skin complications; L08.9 - Local infection of the skin and subcutaneous tissue, unspecified Status: Acute (4) Renal insufficiency ICD Code: N28.9 - Disorder of kidney and ureter, unspecified (5) Hypertension ICD Code: I10 - Essential (primary) hypertension Assessment and Plan 42-year-old male Sepsis secondary to diabetic right foot infection with dry gangrene 4th digit with possible abscess on exam and possible underlying OM -Blood cultures pending, see treatment below MSSA ON VANCO AND ZOSYN Suspected dry gangrene -Discussed with infectious disease, needs anaerobic and aerobic coverage, continue vancomycin and Zosyn -Podiatry plans for debridement 5-15 SP AMPUTATION Peripheral vascular disease -Vascular surgery plans intervention -16 -start Lipitor -Baby aspirin SP angioplasty January [address] Cullen SURGERY ON RIGHT FOOT/LEG WITH VASCULAR NEXT WEEK Acute kidney injury SUSPECT CHRONIC KIDNEY DISEASE STAGE 2 TO 3 - improving w/ IVF -BMP in AM Microcytic anemia -Show substantial iron deficiency, will start Venofer, obtain Hemoccult 3 Diabetes type 2 -Hold metformin for now, sliding scale with Accu-Chek SEVERELY UNCONTROLLED HGBA1C 14.3- WILL NEED INSULIN PROBABLY FROM [facility] [place] Malignant medical noncompliance due to lack of insurance and uncontrolled diabetes Diabetic neuropathy -Continue on gabapentin Hypertension. -Continue lisinopril ADD NORVASC Hyperlipidemia started on Lipitor Continue on anticoagulation per vascular surgery now on aspirin and Plavix and Lipitor Malignant noncompliance due to monetary issues Tobacco abuse recommend cessation lifelong due to diabetes and severe peripheral vascular occlusive disease No pharmacological anticoagulation at this time given impending surgery, SCD on left lower extremity only given pathology on right lower external CONSTIPATION START MEDS Discharge Planning Pending improvement AND SURGERY Problem Qualifiers (1) Leukocytosis: Qualified Codes: D72.829 - Elevated white blood cell count, unspecified Antonio Martell DO January 08, 2018 14:20
[2018-01-08] MEDS ORDERED: BISACODYL 10 MG SUPP RECTAL PRN (14:30)
[2018-01-08] MEDS ORDERED: LACTULOSE SYRUP 20 GM/30 ML CUP PO PRN (14:30)
[2018-01-08] MEDS ORDERED: MAGNESIUM HYDROXIDE SUSP 30 ML CUP PO PRN (14:30)
[2018-01-08] MEDS ORDERED: SENNOSIDES 8.6 MG TAB PO PRN (14:30)
[2018-01-08] MEDS ORDERED: NALOXONE HCL 0.4 MG/ML AMP IV PUSH PRN (14:30)
[2018-01-08] MEDS: DOCUSATE SODIUM 50 MG/SENNA 8.6 MG TAB PO SCH ×2 (15:00→20:30)
[2018-01-08] MEDS ORDERED: POLYETHYLENE GLYCOL 17 GM PKG PO ONE (15:00)
--- NOTE | 2018-01-08 15:46 | HHI.IDPN ---
Subjective Subjective Remarks c/o L foot sweeling denies pain no fever Pt scheduled for a RIGHT LE distal bypass on 01/12/18 w/ Dr. Alyse Tucker PIV with no e/o infection Past Medical History Hypertension Diabetes type 2 insulin requiring at one point Neuropathy Allergies: Coded Allergies: No Known Allergies (Verified Adverse Reaction, Unknown, 01/04/18) Objective . Vital Signs Date Time Temp Pulse Resp B/P (MAP) Pulse Ox O2 Delivery O2 Flow Rate FiO2 01/08/18 12:20 98.9 95 20 168/88 (114) 98 01/08/18 10:58 21 01/08/18 07:55 99.0 84 18 150/78 (102) 98 01/08/18 04:00 98.7 99 17 136/78 (97) 98 01/07/18 18:01 21 01/07/18 16:05 98.1 97 20 164/83 (110) 97 . Laboratory Tests Test 01/07/18 03:30 01/08/18 04:42 White Blood Count 14.8 TH/MM3 14.6 TH/MM3 Red Blood Count 3.19 MIL/MM3 3.22 MIL/MM3 Hemoglobin 8.1 GM/DL 8.1 GM/DL Hematocrit 24.2 % 24.6 % Mean Corpuscular Volume 76.1 FL 76.3 FL Mean Corpuscular Hemoglobin 25.3 PG 25.3 PG Mean Corpuscular Hemoglobin Concent 33.2 % 33.2 % Red Cell Distribution Width 14.1 % 14.3 % Platelet Count 450 TH/MM3 441 TH/MM3 Mean Platelet Volume 7.7 FL 7.6 FL Neutrophils (%) (Auto) 75.3 % 76.2 % Lymphocytes (%) (Auto) 14.7 % 12.6 % Monocytes (%) (Auto) 8.2 % 9.0 % Eosinophils (%) (Auto) 1.2 % 1.7 % Basophils (%) (Auto) 0.6 % 0.5 % Neutrophils # (Auto) 11.2 TH/MM3 11.1 TH/MM3 Lymphocytes # (Auto) 2.2 TH/MM3 1.8 TH/MM3 Monocytes # (Auto) 1.2 TH/MM3 1.3 TH/MM3 Eosinophils # (Auto) 0.2 TH/MM3 0.2 TH/MM3 Basophils # (Auto) 0.1 TH/MM3 0.1 TH/MM3 CBC Comment DIFF FINAL DIFF FINAL Differential Comment Laboratory Tests Test 01/07/18 03:30 01/08/18 04:42 Blood Urea Nitrogen 14 MG/DL 16 MG/DL Creatinine 1.54 MG/DL 1.58 MG/DL Random Glucose 84 MG/DL 119 MG/DL Total Protein 7.0 GM/DL 6.9 GM/DL Albumin 1.9 GM/DL 1.9 GM/DL Calcium Level 8.1 MG/DL 8.2 MG/DL Phosphorus Level 3.4 MG/DL 3.1 MG/DL Magnesium Level 1.9 MG/DL 1.9 MG/DL Alkaline Phosphatase 140 U/L 153 U/L Aspartate Amino Transf (AST/SGOT) 16 U/L 19 U/L Alanine Aminotransferase (ALT/SGPT) 15 U/L 15 U/L Total Bilirubin 0.1 MG/DL 0.1 MG/DL Sodium Level 142 MEQ/L 142 MEQ/L Potassium Level 4.3 MEQ/L 4.3 MEQ/L Chloride Level 111 MEQ/L 111 MEQ/L Carbon Dioxide Level 23.7 MEQ/L 23.1 MEQ/L Anion Gap 7 MEQ/L 8 MEQ/L Estimat Glomerular Filtration Rate 61 ML/MIN 59 ML/MIN Free Thyroxine 1.20 NG/DL Thyroid Stimulating Hormone 3rd Gen 1.760 uIU/ML Microbiology Date/Time Source Procedure Growth Status 01/05/18 17:05 Wound Foot Fungal Smear - Final NO FUNGAL ELEMENTS SEEN. Resulted 01/05/18 17:05 Wound Foot Fungal Culture Pending Resulted 01/05/18 17:05 Wound Foot Acid Fast Stain - Final NO ACID FAST BACILLI SEEN Resulted 01/05/18 17:05 Wound Foot Mycobacterial Culture Pending Resulted 01/05/18 17:05 Wound Foot Gram Stain - Final Complete 01/05/18 17:05 Wound Culture - Final Staphylococcus Aureus Enterococcus Faecalis Complete Imaging Last I Last Impressions Lower Extremity Ultrasound 01/06/18 0000 Signed Impressions: Service Date/Time: Saturday, January 06, 2018 17:05 - CONCLUSION: No DVT. Gibson Isaac MD Foot MRI 01/06/18 0000 Signed Impressions: Service Date/Time: Saturday, January 06, 2018 15:27 - CONCLUSION: Generalized edema with minimal enhancement in the operative bed, nonspecific. No evidence rales myelitis. Antonio Cole MD FACR Chest X-Ray 01/05/18 0600 Signed Impressions: Service Date/Time: Friday, January 05, 2018 09:18 - CONCLUSION: 1. No acute cardiopulmonary findings. Fausto Cole MD Lower Extremity CT 01/04/18 0000 Signed Impressions: Service Date/Time: Thursday, January 04, 2018 17:37 - CONCLUSION: 1. Soft tissue ulcer in the lateral proximal forefoot with subcutaneous air extending to the base of the fourth digit. No definite osseous abnormality to suggest osteomyelitis. Consider MRI examination if there is continued clinical concern. Giorgi Rider MD Foot X-Ray 01/04/18 0000 Signed Impressions: Service Date/Time: Thursday, January 04, 2018 12:43 - CONCLUSION: Negative for acute process. Antonio Cole MD FACR Physical Exam CONSTITUTIONAL/GENERAL: This is an obese male patient, in no apparent distress. Awake and alert. Appears comfortable. SKIN: No jaundice, rashes, or lesions. HEENT: NC/AT. EOMI. Sclera anicteric. No nasal bleeding or discharge. MMM. RESPIRATORY: Nonlabored. Clear to auscultation bilaterally. No wheezing or rhonchi noted. CARDIOVASCULAR: Regular rate and rhythm without any murmurs, rubs or gallops. MUSCULOSKELETAL: Extremities without clubbing, cyanosis, b/l 1+ LE edema. Right foot postop dressing in place, C/D/I. Able to wiggle toes distally. No edema or erythema proximally to dressing NEUROLOGICAL: Awake and alert. Motor and sensory grossly within normal limits. Follows commands. Clear speech. Moves all extremities. PSYCHIATRIC: No obvious anxiety/depression. no apparent hallucinations or other psychotic thought process. Calm and pleasant. Cooperative with exam. PIV with no e/o infection Assessment & Plan Remarks DFI, suspected osteomyelitis of R foot R 4th toe gangrene sp amputation surface clx growing MSSA and Enterococcus GPC in op clx Confirmed PVD sp revasc'n ulysses abx to Unasyn agree with plan for revasc'n Janeen Bolanos MD January 08, 2018 15:46
[2018-01-08 16:25] VITALS: BP 163/94; PULSE 67; RESP 18; TEMP 99.3; O2SAT 99
[2018-01-08] MEDS: AMPICILLIN-SULBACTAM INJ 3 GM in SODIUM CHLORIDE 0.9% INJ 100 ML IV SCH ×2 (17:10→23:30)
--- NOTE | 2018-01-08 18:08 | PD.POD ---
Subjective Pain score: 3 Remarks Apparent no events overnight the patient understands a second vascular surgery will be taking place later next week he seen bedside with son Past Med/Surg/Social History Social History Smoking Status: Current Every Day Smoker Objective Vital Signs Vital Signs Date Time Temp Pulse Resp B/P (MAP) Pulse Ox O2 Delivery O2 Flow Rate FiO2 01/08/18 16:25 99.3 67 18 163/94 (117) 99 01/08/18 12:20 98.9 95 20 168/88 (114) 98 01/08/18 10:58 21 01/08/18 07:55 99.0 84 18 150/78 (102) 98 01/08/18 04:00 98.7 99 17 136/78 (97) 98 Coded Allergies: No Known Allergies (Verified Adverse Reaction, Unknown, 01/04/18) Medications and IVs Administered Medications Medications (Trade) Dose Ordered Sig/Soco Route PRN Reason Start Time Stop Time Status Last Admin Dose Admin Sodium Chloride 1,000 ml @ 70 mls/hr [id number] IV 01/04/18 15:00 01/08/18 03:44 Lisinopril (Prinivil) 10 mg DAILY PO 01/05/18 09:00 01/08/18 09:05 Gabapentin (Neurontin) 300 mg TID PO 01/04/18 18:00 01/08/18 17:10 Oxycodone/ Acetaminophen (Percocet 7.5-325 Mg) 1 tab Q6H PRN PO PAIN SCALE 6 TO 10 01/04/18 18:00 01/08/18 12:06 Pantoprazole Sodium (Protonix) 20 mg DAILY PO 01/05/18 09:00 01/08/18 09:05 Morphine Sulfate (Morphine Inj) 4 mg Q4H PRN IV PUSH BREAKTHROUGH PAIN 01/05/18 10:15 01/08/18 06:43 Aspirin (Ecotrin Ec) 81 mg DAILY PO 01/06/18 09:00 01/08/18 09:05 Atorvastatin Calcium (Lipitor) 40 mg HS PO 01/05/18 21:00 01/07/18 21:37 Clopidogrel Bisulfate (Plavix) 75 mg DAILY PO 01/08/18 09:00 01/08/18 09:05 Insulin Aspart Prota 70%/Aspart 30% (NovoLOG MIX 70/ 30 INJ) 30 units BID@0800,1700 SQ 01/06/18 17:00 01/08/18 09:06 Insulin Aspart (NovoLOG SUPPLEMENTAL SCALE) 1 ACHS SLIDING SCALE SQ 01/06/18 12:00 01/07/18 21:39 Amlodipine Besylate (Norvasc) 5 mg DAILY PO 01/08/18 09:00 01/08/18 09:06 Senna/Docusate Sodium (Trixie-Colace) 1 tab BID PO 01/08/18 15:00 01/08/18 15:00 Ampicillin Sodium/ Sulbactam Sodium 3 gm/Sodium Chloride 100 ml @ 200 mls/hr Q6H IV 01/08/18 17:00 01/08/18 17:10 Other Results Laboratory Tests Test 01/07/18 03:30 01/08/18 04:42 White Blood Count 14.8 TH/MM3 14.6 TH/MM3 Red Blood Count 3.19 MIL/MM3 3.22 MIL/MM3 Hemoglobin 8.1 GM/DL 8.1 GM/DL Hematocrit 24.2 % 24.6 % Mean Corpuscular Volume 76.1 FL 76.3 FL Mean Corpuscular Hemoglobin 25.3 PG 25.3 PG Mean Corpuscular Hemoglobin Concent 33.2 % 33.2 % Red Cell Distribution Width 14.1 % 14.3 % Platelet Count 450 TH/MM3 441 TH/MM3 Mean Platelet Volume 7.7 FL 7.6 FL Neutrophils (%) (Auto) 75.3 % 76.2 % Lymphocytes (%) (Auto) 14.7 % 12.6 % Monocytes (%) (Auto) 8.2 % 9.0 % Eosinophils (%) (Auto) 1.2 % 1.7 % Basophils (%) (Auto) 0.6 % 0.5 % Neutrophils # (Auto) 11.2 TH/MM3 11.1 TH/MM3 Lymphocytes # (Auto) 2.2 TH/MM3 1.8 TH/MM3 Monocytes # (Auto) 1.2 TH/MM3 1.3 TH/MM3 Eosinophils # (Auto) 0.2 TH/MM3 0.2 TH/MM3 Basophils # (Auto) 0.1 TH/MM3 0.1 TH/MM3 CBC Comment DIFF FINAL DIFF FINAL Differential Comment Laboratory Tests Test 01/07/18 03:30 01/08/18 04:42 Blood Urea Nitrogen 14 MG/DL 16 MG/DL Creatinine 1.54 MG/DL 1.58 MG/DL Random Glucose 84 MG/DL 119 MG/DL Total Protein 7.0 GM/DL 6.9 GM/DL Albumin 1.9 GM/DL 1.9 GM/DL Calcium Level 8.1 MG/DL 8.2 MG/DL Phosphorus Level 3.4 MG/DL 3.1 MG/DL Magnesium Level 1.9 MG/DL 1.9 MG/DL Alkaline Phosphatase 140 U/L 153 U/L Aspartate Amino Transf (AST/SGOT) 16 U/L 19 U/L Alanine Aminotransferase (ALT/SGPT) 15 U/L 15 U/L Total Bilirubin 0.1 MG/DL 0.1 MG/DL Sodium Level 142 MEQ/L 142 MEQ/L Potassium Level 4.3 MEQ/L 4.3 MEQ/L Chloride Level 111 MEQ/L 111 MEQ/L Carbon Dioxide Level 23.7 MEQ/L 23.1 MEQ/L Anion Gap 7 MEQ/L 8 MEQ/L Estimat Glomerular Filtration Rate 61 ML/MIN 59 ML/MIN Free Thyroxine 1.20 NG/DL Thyroid Stimulating Hormone 3rd Gen 1.760 uIU/ML Name: TYLER AMBROSE JR Age/Sex:42/M Attend Dr: Antonio Martell DO Unit#: [id number] Status: ADM IN Location: N04A 1405 -A Re01/04/18 : 1975 SPECIMEN #: [id number] EWA: 01/04/18 1230 STATUS: COMP RECD: 01/04/[address]: Larry Mauricio PT ID: Cecelia BOX/PROVIDER ID: SOURCE: WOUND COPY TO: UNKNOWN BILL CLIENT: ORDERED: WOUND CULTURE QUERIES: Method of Collection: SWAB ACT WKST: WOUNDS 01/05/18 #1 Procedure Result Verified Site GRAM STAIN Final 01/05/18-857 NO WBC'S SEEN RARE EPITHELIAL CELL HEAVY MIXED JULIUS WITH NO PREDOMINANT MORPHOLOGY GRAM STAIN Final (changed) 01/04/18 Test not performed WOUND CULTURE Final 01/06/18 HEAVY GROWTH STAPHYLOCOCCUS AUREUS HEAVY GROWTH ENTEROCOCCUS FAECALIS HEAVY GROWTH NORMAL SKIN JULIUS ENT FAECAL M.I.C. RX --------- --- PENICILLIN G 8 S AMPICILLIN <2 S DAPTOMYCIN 1 S VANCOMYCIN 2 S LINEZOLID 2 S ENTEROCOCCUS FAECALIS: POS COMBO 33 Streptomycin Synergy Screen R Gentamicin Synergy Screen R CONTINUED ON NEXT PAGE RUN DATE: 01/06/18 [facility] LIVE PAGE 2 RUN TIME: [address] [address] DOCTOR REPORT PATIENT Patient: TYLER AMBROSE JR #[id number] (Continued) Specimen: [id number] Collected: 01/04/18-1230 Received: 01/04/18-124 (Continued) Procedure Result Verified Site WOUND CULTURE Preliminary (changed) 01/06/18-1145 HEAVY GROWTH STAPHYLOCOCCUS AUREUS HEAVY GROWTH GROUP D ENTEROCOCCUS (PRESUMPTIVE ID) ID AND ESTRADA TO FOLLOW WOUND CULTURE Preliminary (changed) 01/05/18-1344 HEAVY GROWTH STAPHYLOCOCCUS AUREUS Exam-Podiatry Constitutional General appearance: comfortable Nutritional status: normal Orientation: alert and oriented x3 Musculoskeletal Exam Details Right lower extremity examined: Absent fourth digit yellow fibrotic base of wound 3 cm 4 cm 2 cm with exposed fourth metatarsal head minimal bleeding noted the foot and leg appear to be warm sensation decreased light touch Assessment & Plan A/P Right diabetic foot infection gangrene fourth digit. Status post right fourth digit amputation with incision drainage and expansile debridement. Reviewed the patient's wound has not improved nor has it spread or worsen. Blood flow still remains a deep concern. Will follow along conservatively until circulation addressed next week, may need wound VAC versus repeat debridements. Wet-to-dry per nursing. Masoud Gates DPM January 08, 2018 18:08
[2018-01-08 20:00] VITALS: BP 133/61; PULSE 97; RESP 19; TEMP 97.9; O2SAT 97
[2018-01-08] MEDS: ATORVASTATIN 40 MG TAB PO SCH (20:30)
[2018-01-09] VITALS (8 sets, daily range): BP systolic 124–186; BP diastolic 62–104; PULSE 76–108; RESP 17–20; TEMP 98.8–101.4; O2SAT 95–98
[2018-01-09] MEDS: oxyCODONE/ACETAMINOPHEN 7.5 MG/325 MG TAB PO PRN ×4 (01:14→22:20)
[2018-01-09] MEDS: SODIUM CHLOR 0.9% 1000 ML INJ 1,000 ML IV SCH ×3 (01:18→23:42)
[2018-01-09] MEDS: AMPICILLIN-SULBACTAM INJ 3 GM in SODIUM CHLORIDE 0.9% INJ 100 ML IV SCH ×4 (04:59→22:18)
[2018-01-09] MEDS: INSULIN ASPART SUPPLEMENTAL SCALE SQ SCH ×4 (08:00→21:00)
[2018-01-09] MEDS: INSULIN ASPAR PROT 70/30 1,000 UNITS/10 ML VIAL SQ SCH ×2 (08:00→18:16)
[2018-01-09] MEDS: POLYETHYLENE GLYCOL 17 GM PKG PO SCH (09:00)
[2018-01-09] MEDS: GABAPENTIN 300 MG CAP PO SCH ×3 (09:09→18:14)
[2018-01-09] MEDS: CLOPIDOGREL 75 MG TAB PO SCH (09:10)
[2018-01-09] MEDS: DOCUSATE SODIUM 50 MG/SENNA 8.6 MG TAB PO SCH ×2 (09:10→22:20)
[2018-01-09] MEDS: ASPIRIN EC 81 MG TABEC PO SCH (09:11)
[2018-01-09] MEDS: amLODIPine BESYLATE 5 MG TAB PO SCH (09:11)
[2018-01-09] MEDS: LISINOPRIL 10 MG TAB PO SCH (09:11)
[2018-01-09] MEDS: PANTOPRAZOLE SOD 20 MG DELAYED RELEASE TAB PO SCH (09:11)
--- NOTE | 2018-01-09 11:32 | HHI.PR ---
Subjective Remarks Patient is a 43-year-old male diabetic insulin requiring, hypertension who about 2 weeks prior to admission complaining complained of swelling of the right foot. Patient with fever and chills. Next day developed blister on the anterior aspect of the foot and sought consult with the PCP where it was initially told it was gout.. patient also states that he was also placed on Bactrim for 5 days. 4 days later with worsening swelling. Draining foul- smelling yellowish exudate minimal per . He was seen in follow-up by primary care physician and was sent here for further evaluation and management. Patient states good hypoglycemic awareness. He states that he was just also recently started on 7030 10 units twice a day. Patient complains of neuropathic pain for which he takes gabapentin. 5-15 Nursing reports patient having substantial pain. Otherwise no other medical deterioration since last night. Patient denies ever being put on a cholesterol medication in the past. 5-16 SP ANGIOGRAM TODAY WITH ANGIOPLASTY Patient states he "BOOTLEGS DM MEDICATIONS FROM FAMILY" WAS ALSO SMOKING PRIOR TO COMING TO THE HOSPITAL NEEDS TO CONTROL SUGARS AND STOP SMOKING DW RN AND PT AND CM AND FAMILY NEEDS DM EDUCATION 5-17 HTN NOT AT GOAL ADD NORVASC 5MG PO DAILY AM LABS DW ID AND RN AND PT AND FAMILY NEEDS TO HAVE TIGHT CONTROL OF SUGARS SP RIGHT 4TH TOE AMPUTATION ON VANCO AND ZOSYN 518 for surgery with VASCULAR NEXT WEEK COMPLAINS OF CONSTIPATION DW RN AND PT 5-19 FOR VASCULAR SURGERY NEXT WEEK NO SOB NO CHEST PAIN HAS PAIN AND SWELLING OF RIGHT UPPER EXTREMITY WILL GET US DOPPLER DW RN AND PT Objective Vitals Vital Signs Date Time Temp Pulse Resp B/P (MAP) Pulse Ox O2 Delivery O2 Flow Rate FiO2 01/09/18 08:50 95 21 01/09/18 08:00 99.0 83 20 169/91 (117) 95 01/09/18 04:00 98.8 94 17 141/82 (101) 97 01/09/18 00:00 98.8 108 17 144/70 (94) 98 01/08/18 20:00 97.9 97 19 133/61 (85) 97 01/08/18 16:25 99.3 67 18 163/94 (117) 99 01/08/18 12:20 98.9 95 20 168/88 (114) 98 I/O 5/18/18 501/08/18 01/09/18 01/09/18 01/09/18 07:00 15:00 23:00 07:00 15:00 23:00 Intake Total 1290 ml 600 ml 367 ml Output Total 400 ml 600 ml Balance 1290 ml 200 ml -233 ml Intake Oral 240 ml 600 ml IV Total 1050 ml 367 ml Output Urine Total 400 ml 600 ml # Voids 4 # Bowel Movements 0 Result Diagram: 01/08/18 0442 01/08/18 0442 Other Results Laboratory Tests Test 01/06/18 12:58 01/07/18 03:30 01/08/18 04:42 Vancomycin Level Trough 21.3 MCG/ML White Blood Count 14.8 TH/MM3 14.6 TH/MM3 Red Blood Count 3.19 MIL/MM3 3.22 MIL/MM3 Hemoglobin 8.1 GM/DL 8.1 GM/DL Hematocrit 24.2 % 24.6 % Mean Corpuscular Volume 76.1 FL 76.3 FL Mean Corpuscular Hemoglobin 25.3 PG 25.3 PG Mean Corpuscular Hemoglobin Concent 33.2 % 33.2 % Red Cell Distribution Width 14.1 % 14.3 % Platelet Count 450 TH/MM3 441 TH/MM3 Mean Platelet Volume 7.7 FL 7.6 FL Neutrophils (%) (Auto) 75.3 % 76.2 % Lymphocytes (%) (Auto) 14.7 % 12.6 % Monocytes (%) (Auto) 8.2 % 9.0 % Eosinophils (%) (Auto) 1.2 % 1.7 % Basophils (%) (Auto) 0.6 % 0.5 % Neutrophils # (Auto) 11.2 TH/MM3 11.1 TH/MM3 Lymphocytes # (Auto) 2.2 TH/MM3 1.8 TH/MM3 Monocytes # (Auto) 1.2 TH/MM3 1.3 TH/MM3 Eosinophils # (Auto) 0.2 TH/MM3 0.2 TH/MM3 Basophils # (Auto) 0.1 TH/MM3 0.1 TH/MM3 CBC Comment DIFF FINAL DIFF FINAL Differential Comment Blood Urea Nitrogen 14 MG/DL 16 MG/DL Creatinine 1.54 MG/DL 1.58 MG/DL Random Glucose 84 MG/DL 119 MG/DL Total Protein 7.0 GM/DL 6.9 GM/DL Albumin 1.9 GM/DL 1.9 GM/DL Calcium Level 8.1 MG/DL 8.2 MG/DL Phosphorus Level 3.4 MG/DL 3.1 MG/DL Magnesium Level 1.9 MG/DL 1.9 MG/DL Alkaline Phosphatase 140 U/L 153 U/L Aspartate Amino Transf (AST/SGOT) 16 U/L 19 U/L Alanine Aminotransferase (ALT/SGPT) 15 U/L 15 U/L Total Bilirubin 0.1 MG/DL 0.1 MG/DL Sodium Level 142 MEQ/L 142 MEQ/L Potassium Level 4.3 MEQ/L 4.3 MEQ/L Chloride Level 111 MEQ/L 111 MEQ/L Carbon Dioxide Level 23.7 MEQ/L 23.1 MEQ/L Anion Gap 7 MEQ/L 8 MEQ/L Estimat Glomerular Filtration Rate 61 ML/MIN 59 ML/MIN Free Thyroxine 1.20 NG/DL Thyroid Stimulating Hormone 3rd Gen 1.760 uIU/ML Imaging Last Impressions Lower Extremity Ultrasound 01/06/18 0000 Signed Impressions: Service Date/Time: Saturday, January 06, 2018 17:05 - CONCLUSION: No DVT. Gibson Isaac MD Foot MRI 01/06/18 0000 Signed Impressions: Service Date/Time: Saturday, January 06, 2018 15:27 - CONCLUSION: Generalized edema with minimal enhancement in the operative bed, nonspecific. No evidence rales myelitis. Antonio Cole MD FACR Chest X-Ray 01/05/18 0600 Signed Impressions: Service Date/Time: Friday, January 05, 2018 09:18 - CONCLUSION: 1. No acute cardiopulmonary findings. Fausto Cole MD Lower Extremity CT 01/04/18 0000 Signed Impressions: Service Date/Time: Thursday, January 04, 2018 17:37 - CONCLUSION: 1. Soft tissue ulcer in the lateral proximal forefoot with subcutaneous air extending to the base of the fourth digit. No definite osseous abnormality to suggest osteomyelitis. Consider MRI examination if there is continued clinical concern. Giorgi Rdier MD Foot X-Ray 01/04/18 0000 Signed Impressions: Service Date/Time: Thursday, January 04, 2018 12:43 - CONCLUSION: Negative for acute process. Antonio Cole MD FACR Objective Remarks GENERAL: Awake and alert and oriented 3 talkative and cooperative SKIN: Warm and dry. Right lower extremity is dressed HEAD: Atraumatic. Normocephalic. EYES: Pupils equal and round. No scleral icterus. No injection or drainage. Extraocular muscles intact ENT: No nasal bleeding or discharge. Mucous membranes pink and moist. Tongue is midline NECK: Trachea midline. No JVD. Supple CARDIOVASCULAR: Regular rate and rhythm. S1-S2 no S3 or S4 RESPIRATORY: No accessory muscle use. Clear to auscultation. Breath sounds equal bilaterally. GASTROINTESTINAL: Abdomen soft, non-tender, nondistended. Hepatic and splenic margins not palpable. Obese MUSCULOSKELETAL: Extremities without clubbing, cyanosis, or edema. No obvious deformities. Right lower extremity is dressed NEUROLOGICAL: Awake and alert. No obvious cranial nerve deficits. Motor grossly within normal limits. 4 out of 5 muscle strength in the arms and legs. Normal speech. PSYCHIATRIC: Appropriate mood and affect; insight and judgment normal. Procedures ANGIOGRAM 01-06 Moe Cullen MD DATE OF OPERATION: PREOPERATIVE DIAGNOSIS: Right lower extremity tissue loss, peripheral vascular disease. POSTOPERATIVE DIAGNOSIS: Right lower extremity tissue loss, peripheral vascular disease. PROCEDURE PERFORMED: 1. Aortogram with right lower extremity angiogram. 2. Right SFA and popliteal artery angioplasty with 5 mm balloon. 3. Left common femoral artery Angio-Seal. OPERATING SURGEON: Moe Cullen MD ANESTHESIA: Local with sedation. INDICATIONS: Mr. Garibay is a 42-year-old gentleman with right lower extremity tissue loss. He is taken to the operating room for angiographic evaluation and potential treatment. There was no prior catheter-based imaging available for my review. DESCRIPTION OF PROCEDURE: Informed consent was obtained from the patient. He was taken to the operating room and placed supine on the operating table. An appropriate timeout was taken to ensure the patient's identity, the operative site and planned procedure. The administration of antibiotics was not necessary as this is a clean procedure without the planned implantation of any foreign object. Everyone in the room agreed with timeout and we proceeded. His bilateral groins prepped and draped. Left groin was anesthetized with 1% lidocaine. A 21-gauge micropuncture needle was used to access the left common femoral artery, was exchanged using Seldinger technique through micropuncture sheath, which a 0.035 Glidewire was introduced. Micropuncture sheath was exchanged for a 4-Croatian sheath. A VCF catheter was placed over the wire and through the sheath and aortogram, pelvic arteriogram was obtained. The Glidewire was reintroduced and navigated down to the right common femoral artery and the VCF catheter was advanced over this and a right lower extremity arteriogram was obtained. The patient was systemically heparinized with 5000 units of IV Heparin. A 0.035 Ceballos wire was introduced down to the mid SFA and the VCF catheter and 4-Croatian sheath were removed and a 6-Croatian 55 cm Dimitry sheath was introduced. A CXI catheter was placed over the wire into the sheath and the wire was exchanged for a BREAKFAST AND ROOM ATTENDANT wire. Using the BREAKFAST AND ROOM ATTENDANT wire and CXI catheter we were able to navigate through the SFA lesion and the popliteal lesion. Both of these were angioplastied with a 5 x 200 and 5 x 80 balloon, respectively. The completion angiogram showed excellent result on recoil extravasation. We then did advance the catheter down to the popliteal artery. An angiogram was obtained. The wire, catheter and sheath were removed and the groin was closed with Angio-Seal. There were no complications. I was present and scrubbed for the entire procedure. INTERPRETATION OF IMAGES: The patient has a patent terminal aorta, common iliac arteries, hypogastric arteries and external iliac arteries, none of which have any hemodynamically significant stenoses. The right common femoral artery and profunda are patent without any hemodynamically significant stenosis. The proximal SFA is patent. The mid SFA has high-grade diffuse stenosis that was successfully angioplastied and the popliteal artery had a similar high-grade diffuse stenosis that was successfully angioplastied. The below knee popliteal artery occludes and there was no posterior tibial artery or peroneal artery proximally. The perigeniculate collaterals give rise to the posterior tibial artery in the mid to distal calf. , 09:14 AM Masoud Gates DPM DATE OF OPERATION: 01/05/2018 PREOPERATIVE DIAGNOSIS: Right fourth digit gangrene, abscess, diabetic foot infection. POSTOPERATIVE DIAGNOSIS: Right fourth digit gangrene, abscess, diabetic foot infection. PROCEDURE PERFORMED: Right fourth digit amputation, incision and drainage deep, right foot. INTRAOPERATIVE FINDINGS: Minimal bleeding. Foul odor at level of amputation site. S SPECIMENS: Fourth digit for pathology. Deep culture at amputation site for micro. ESTIMATED BLOOD LOSS: Less than 30 mL ANESTHESIA: General. DRAINS: None. TOURNIQUET: None. DISPOSITION: Returned to floor for vascular intervention and monitor of foot. May need wound VAC versus repetitive debridements versus amputation at a later date. JUSTIFICATION FOR PROCEDURE: A 42-year-old diabetic male with a history of smoking, was admitted. CT showed gas within the tissue at the base of the fourth digit. The patient was planned for vascular intervention; however, we wished to eradicate infection or at least debulk the infection first. The patient was educated on risks and benefits, need for more surgery, loss of limb. No guarantees were given or implied regarding the outcome. PROCEDURE IN DETAIL: Under mild sedation, the patient was brought into the operating room, placed on the operating table in supine position. Following the induction of general anesthesia, the patient's right lower extremity was scrubbed, prepped and draped in the usual aseptic fashion. The foot was elevated and examined. There was noted to be a necrotic, delayed capillary fill time, a putrid-smelling right fourth digit. A fishmouth mouth type incision was made disarticulating the digit down to the level of the joint. There were gas bubbles within the tissue. There was purulent drainage. There was a full-thickness eschar of the dorsum of the foot that had an odor. This was sharply unroofed down to the tendon sheath with exposed fourth metatarsal. There was no obvious signs of tracking deep within the plantar aspect of the foot or along the dorsal aspect of the foot. This was flushed with copious amounts of normal saline. Minimal Bovie and ligation was needed throughout the case. The wound was packed open, soft bandage applied. The patient was transferred from OR to PACU with all vital signs stable. The patient will be monitored after a vascular attempt. Overall prognosis is poor given the history of smoking and diabetes. I will see the patient within 1-2 days. Masoud Gates, CHERISE Medications and IVs Current Medications Morphine Sulfate (Morphine Inj) 4 mg ONCE ONCE IV PUSH Last administered on at 13:34; Start 01/04/18 at 12:15; Stop 01/04/18 at 12:16; Status DC Ondansetron HCl (Zofran Odt) 4 mg ONCE ONCE PO Last administered on at 13:33; Start 01/04/18 at 12:15; Stop 01/04/18 at 12:16; Status DC Piperacillin Sod/ Tazobactam Sod 50 ml @ 100 mls/hr ONCE ONCE IV Last administered on 01/04/18at 13:34; Start 01/04/18 at 12:15; Stop 01/04/18 at 12:44 ; Status DC Vancomycin HCl 1000 mg/Sodium Chloride 250 ml @ 250 mls/hr ONCE ONCE IV Last administered on 01/04/18at 14:20; Start 01/04/18 at 12:15; Stop 01/04/18 at 13:14 ; Status DC Sodium Chloride 1,000 ml @ 1,000 mls/hr Q1H IV Last administered on 01/04/18at 13:34; Start 01/04/18 at 12:13; Stop 01/04/18 at 13:12; Status DC Aspirin (Aspirin Chew) 324 mg ONCE ONCE CHEW Last administered on 01/04/18at 13 :33; Start 01/04/18 at 13:15; Stop 01/04/18 at 13:16; Status DC Dextrose (D25w Inj) 10 ml ONCE ONCE IV PUSH Last administered on 01/04/18at 14: 28; Start 01/04/18 at 13:45; Stop 01/04/18 at 13:46; Status DC Sodium Chloride 1,000 ml @ 70 mls/hr [id number] IV Last administered on at 01:18; Start 01/04/18 at 15:00 Lisinopril (Prinivil) 10 mg DAILY PO Last administered on 01/09/18at 09:11; Start 01/05/18 at 09:00 Gabapentin (Neurontin) 300 mg TID PO Last administered on 01/09/18at 09:09; Start 01/04/18 at 18:00 Dextrose (D50w (Vial) Inj) 50 ml UNSCH PRN IV PUSH HYPOGLYCEMIA-SEE COMMENTS; Start 01/04/18 at 17:45; Stop 01/06/18 at 10:41; Status DC Glucagon (Glucagon Inj) 1 mg UNSCH PRN OTHER HYPOGLYCEMIA-SEE COMMENTS; Start 01/04/18 at 17:45; Stop 01/06/18 at 10:41; Status DC Insulin Aspart (NovoLOG SUPPLEMENTAL SCALE) 1 ACHS SLIDING SCALE SQ Last administered on 01/06/18at 07:45; Start 01/04/18 at 21:00; Stop 01/06/18 at 10:41 ; Status DC Piperacillin Sod/ Tazobactam Sod 50 ml @ 100 mls/hr Q6H IV ; Start 01/04/18 at 20:00; Status Cancel Pharmacy Profile Note 0 ml @ 0 mls/hr UNSCH OTHER ; Start 01/04/18 at 18:00; Stop 01/07/18 at 14:48; Status DC Vancomycin HCl 1000 mg/Sodium Chloride 250 ml @ 250 mls/hr Q12H IV ; Start at 06:00; Stop 01/05/18 at 06:00; Status DC Oxycodone/ Acetaminophen (Percocet 5-325 Mg) 1 tab Q6HR PRN PO PAIN SCALE 3 TO 5; Start 01/04/18 at 18:00 Oxycodone/ Acetaminophen (Percocet 7.5-325 Mg) 1 tab Q6H PRN PO PAIN SCALE 6 TO 10 Last administered on 01/09/18at 07:37; Start 01/04/18 at 18:00 Pantoprazole Sodium (Protonix) 20 mg DAILY PO Last administered on 01/09/18at 09 :11; Start 01/05/18 at 09:00 Vancomycin HCl 1250 mg/Sodium Chloride 262.5 ml @ 250 mls/hr Q12H IV Last administered on 01/06/18at 13:24; Start 01/05/18 at 01:00; Stop 01/06/18 at 15:21 ; Status DC Cefepime HCl 2000 mg/Sodium Chloride 100 ml @ 200 mls/hr Q12H IV Last administered on 01/05/18at 06:04; Start 01/04/18 at 18:00; Stop 01/05/18 at 12:37 ; Status DC Miscellaneous Information ([facility] Ordered Lab Info) SPECIFIC LAB TO BE ROSALEE... ONCE ONCE .XX Last administered on 01/06/18at 12:45; Start 01/06/18 at 12:45; Stop 01/06/18 at 12:46; Status DC Zolpidem Tartrate (Ambien) 5 mg ONCE ONCE PO Last administered on 01/04/18at 22 :40; Start 01/04/18 at 22:15; Stop 01/04/18 at 22:16; Status DC Morphine Sulfate (Morphine Inj) 4 mg Q4H PRN IV PUSH BREAKTHROUGH PAIN Last administered on 01/08/18at 06:43; Start 01/05/18 at 10:15 Piperacillin Sod/ Tazobactam Sod 50 ml @ 100 mls/hr Q6H IV Last administered on 01/07/18at 14:49; Start 01/05/18 at 14:00; Stop 01/07/18 at 17:46; Status DC Aspirin (Ecotrin Ec) 81 mg DAILY PO Last administered on 01/09/18at 09:11; Start 01/06/18 at 09:00 Atorvastatin Calcium (Lipitor) 40 mg HS PO Last administered on 01/08/18at 20:30 ; Start 01/05/18 at 21:00 Iron Sucrose 200 mg/Sodium Chloride 110 ml @ 110 mls/hr DAILY IV Last administered on 01/07/18at 12:23; Start 01/05/18 at 15:00; Stop 01/07/18 at 09:59 ; Status DC Bupivacaine HCl (Marcaine Pf 0.25% Inj) 30 ml STK-MED ONCE .ROUTE ; Start at 16:45; Stop 01/05/18 at 16:46; Status DC Neomycin/Polymyxin (Neosporin G.u. Irr) 1 ml STK-MED ONCE .ROUTE ; Start at 16:55; Stop 01/05/18 at 16:56; Status DC Acetaminophen 100 ml @ As Directed STK-MED ONCE IV ; Start 01/05/18 at 18:17; Stop 01/05/18 at 18:18; Status DC Lactated Ringer's 1,000 ml @ 30 mls/hr Q24H PRN IV SEE LABEL COMMENTS; Start at 18:45; Stop 01/08/18 at 18:44; Status DC Sodium Chloride 500 ml @ 30 mls/hr [id number] PRN IV SEE LABEL COMMENTS; Start at 18:45; Stop 01/08/18 at 18:44; Status DC Povidone Iodine (Betadine 5% Antisepsis Kit) 1 applic NAT INSTRUCTOR PRN EACH NARE SEE LABEL COMMENTS; Start 01/05/18 at 18:45; Stop 01/08/18 at 18:44; Status DC Chlorhexidine Gluconate (Chlorhexidine 2% Cloth) 3 pack NAT INSTRUCTOR PRN TOPICAL SEE LABEL COMMENTS; Start 01/05/18 at 18:45; Stop 01/08/18 at 18:44; Status DC Midazolam HCl (Versed Inj) 2 mg STK-MED ONCE .ROUTE ; Start 01/05/18 at 19:26; Stop 01/05/18 at 19:27; Status DC Miscellaneous Information ([facility] Nursing Information) ALL NURSING DEPARTME... UNSCH PRN .XX SEE LABEL COMMENTS; Start 01/05/18 at 20:30; Stop 01/06/18 at 20: 29; Status DC Fentanyl Citrate (fentaNYL INJ) 100 mcg STK-MED ONCE .ROUTE Last administered on 01/06/18at 08:04; Start 01/06/18 at 08:04; Stop 01/06/18 at 08:05; Status DC Midazolam HCl (Versed Inj) 5 mg STK-MED ONCE .ROUTE Last administered on at 08:04; Start 01/06/18 at 08:04; Stop 01/06/18 at 08:05; Status DC Heparin Sodium/ Sodium Chloride 2,000 ml @ As Directed STK-MED ONCE IV FLUSH ; Start 01/06/18 at 08:04; Stop 01/06/18 at 08:05; Status DC Heparin Sodium (Porcine) (Heparin Inj) 10,000 units STK-MED ONCE .ROUTE Last administered on 01/06/18at 08:29; Start 01/06/18 at 08:29; Stop 01/06/18 at 08:30 ; Status DC Clopidogrel Bisulfate (Plavix) 150 mg ONCE ONCE PO Last administered on at 09:15; Start 01/06/18 at 09:15; Stop 01/06/18 at 09:33; Status DC Clopidogrel Bisulfate (Plavix) 75 mg DAILY PO Last administered on 01/09/18at 09 :10; Start 01/08/18 at 09:00 Insulin Aspart Prota 70%/Aspart 30% (NovoLOG MIX 70/ 30 INJ) 30 units BID@0800, 1700 SQ Last administered on 01/08/18at 18:26; Start 01/06/18 at 17:00 Insulin Aspart (NovoLOG SUPPLEMENTAL SCALE) 1 ACHS SLIDING SCALE SQ Last administered on 01/08/18at 20:30; Start 01/06/18 at 12:00 Iohexol (OMNIPAQUE 350 INJ (Motor Builder Winder)) 100 ml STK-MED ONCE OTHER ; Start at 11:30; Stop 01/06/18 at 11:31; Status DC Vancomycin HCl 1500 mg/Sodium Chloride 515 ml @ 250 mls/hr Q18H IV Last administered on 01/07/18at 05:20; Start 01/07/18 at 06:00; Stop 01/07/18 at 14:48 ; Status DC Miscellaneous Information ([facility] Ordered Lab Info) SPECIFIC LAB TO BE DRAWN:VANCOMYCIN TROUGH DATE TO... ONCE ONCE .XX ; Start 01/09/18 at 11:45; Stop 01/09/18 at 11:46; Status Cancel Gadodiamide (Omniscan Pf Inj) 20 ml STK-MED ONCE IVCONTRAST Last administered on 01/06/18at 16:04; Start 01/06/18 at 16:04; Stop 01/06/18 at 16:05; Status DC Phenylephrine HCl (Neosynephrine/ NS 1000 Mcg/10ml Syr) 1,000 mcg STK-MED ONCE IV ; Start 01/05/18 at 12:00; Stop 01/07/18 at 10:56; Status DC Ephedrine Sulfate (ePHEDrine/NS 25 MG/5 ML SYR) 25 mg STK-MED ONCE IV ; Start at 12:00; Stop 01/07/18 at 10:56; Status DC Dexamethasone Sodium Phosphate (Decadron Inj) 4 mg STK-MED ONCE IV ; Start 01/05 at 12:00; Stop 01/07/18 at 10:56; Status DC Ondansetron HCl (Zofran Inj) 4 mg STK-MED ONCE IV ; Start 01/05/18 at 12:00; Stop 01/07/18 at 10:56; Status DC Amlodipine Besylate (Norvasc) 5 mg ONCE ONCE PO Last administered on at 15:23; Start 01/07/18 at 15:15; Stop 01/07/18 at 15:16; Status DC Amlodipine Besylate (Norvasc) 5 mg DAILY PO Last administered on 01/09/18at 09: 11; Start 01/08/18 at 09:00 Clonidine (Catapres) 0.1 mg Q4H PRN PO SBP>160, DBP>90; Start 01/07/18 at 15:45 Piperacillin Sod/ Tazobactam Sod 50 ml @ 100 mls/hr Q6H IV Last administered on 01/08/18at 14:55; Start 01/07/18 at 21:00; Stop 01/08/18 at 15:48; Status DC Naloxone HCl (Narcan Inj) 0.4 mg UNSCH PRN IV PUSH SEE LABEL COMMENTS; Start at 14:30 Senna/Docusate Sodium (Trixie-Colace) 1 tab BID PO Last administered on at 09:10; Start 01/08/18 at 15:00 Magnesium Hydroxide (Milk Of Magnesia Liq) 30 ml Q12H PRN PO Mild constipation ; Start 01/08/18 at 14:30 Sennosides (Senokot) 17.2 mg Q12H PRN PO Moderate constipation; Start 01/08/18 at 14:30 Bisacodyl (Dulcolax Supp) 10 mg DAILY PRN RECTAL SEVERE CONSITIPATION; Start at 14:30 Lactulose (Lactulose Liq) 30 ml DAILY PRN PO SEVERE CONSITIPATION; Start at 14:30 Polyethylene Glycol (Miralax) 17 gm ONCE ONCE PO Last administered on at 14:56; Start 01/08/18 at 15:00; Stop 01/08/18 at 15:01; Status DC Polyethylene Glycol (Miralax) 17 gm DAILY PO ; Start 01/09/18 at 09:00 Ampicillin Sodium/ Sulbactam Sodium 3 gm/Sodium Chloride 100 ml @ 200 mls/hr Q6H IV Last administered on 01/09/18at 04:59; Start 01/08/18 at 17:00 A/P Problem List: (1) Leukocytosis ICD Code: D72.829 - Elevated white blood cell count, unspecified Status: Acute (2) Peripheral vascular disease ICD Code: I73.9 - Peripheral vascular disease, unspecified Status: Acute (3) Diabetic foot infection ICD Code: E11.628 - Type 2 diabetes mellitus with other skin complications; L08.9 - Local infection of the skin and subcutaneous tissue, unspecified Status: Acute (4) Renal insufficiency ICD Code: N28.9 - Disorder of kidney and ureter, unspecified (5) Hypertension ICD Code: I10 - Essential (primary) hypertension Assessment and Plan 42-year-old male Sepsis secondary to diabetic right foot infection with dry gangrene 4th digit with possible abscess on exam and possible underlying OM -Blood cultures pending, see treatment below MSSA ON AMPICILLIN SULBACTAM NOW PER ID Suspected dry gangrene -Discussed with infectious disease, needs anaerobic and aerobic coverage, continue AMPICILLIN SULBACTAM NOW PER ID -Podiatry plans for debridement 5-15 SP AMPUTATION Peripheral vascular disease -Vascular surgery plans intervention - -start Lipitor -Baby aspirin SP angioplasty January [address] Cullen SURGERY ON RIGHT FOOT/LEG WITH VASCULAR NEXT WEEK Acute kidney injury SUSPECT CHRONIC KIDNEY DISEASE STAGE 2 TO 3 - improving w/ IVF -BMP in AM Microcytic anemia -Show substantial iron deficiency, will start Venofer, obtain Hemoccult 3 Diabetes type 2 -Hold metformin for now, sliding scale with Accu-Chek SEVERELY UNCONTROLLED HGBA1C 14.3- [facility] [place] Malignant medical noncompliance due to lack of insurance and uncontrolled diabetes Diabetic neuropathy -Continue on gabapentin Hypertension. -Continue lisinopril ADD NORVASC Hyperlipidemia started on Lipitor Continue on anticoagulation per vascular surgery now on aspirin and Plavix and Lipitor Malignant noncompliance due to monetary issues Tobacco abuse recommend cessation lifelong due to diabetes and severe peripheral vascular occlusive disease No pharmacological anticoagulation at this time given impending surgery, SCD on left lower extremity only given pathology on right lower external CONSTIPATION START MEDS RIGHT UE PAIN CHECK US OF RIGHT UE FOR DVT Discharge Planning Pending improvement AND SURGERY Problem Qualifiers (1) Leukocytosis: Qualified Codes: D72.829 - Elevated white blood cell count, unspecified Antonio Martell DO January 09, 2018 11:32
[2018-01-09] MEDS ORDERED: PHARMACY ORDERED LAB ONE (11:45)
[2018-01-09] MEDS: cloNIDine HCL 0.1 MG TAB PO PRN (13:34)
--- NOTE | 2018-01-09 14:00 | RADRPT ---
EXAM DATE/TIME: 01/09/2018 13:07 [place] COMPARISON: No previous studies available for comparison. INDICATIONS : Right arm swelling. MEDICAL HISTORY : Hypertension. Diabetes. SURGICAL HISTORY : Right ankle surgery. ENCOUNTER: Initial ACUITY: 1 day PAIN SCORE: 7/10 LOCATION: Right arm. FINDINGS: There is occlusive to nonocclusive thrombus extending from the proximal forearm to the mid upper arm in the cephalic vein. There is spontaneous flow documented in the brachial, basilic, axillary, and fierro bclavian veins. The vessels are compressible and augmentation response is documented. No additional filling defects are seen. The flow is phasic with respiration. Direction of flow in the jugular ve in is caudal. CONCLUSION: 1. Mixture of occlusive and nonocclusive thrombus throughout the cephalic vein extending to the mid u pper arm. Giorgi Rider MD on January 09, 2018 at 13:56 Board Certified Radiologist. This report was verified electronically.
[2018-01-09] MEDS: ATORVASTATIN 40 MG TAB PO SCH (22:19)
[2018-01-09] MEDS: ACETAMINOPHEN 325 MG TAB PO PRN (22:22)
[2018-01-10] VITALS (7 sets, daily range): BP systolic 148–183; BP diastolic 75–88; PULSE 82–101; RESP 18–20; TEMP 98.2–99.4; O2SAT 95–98
[2018-01-10] MEDS: AMPICILLIN-SULBACTAM INJ 3 GM in SODIUM CHLORIDE 0.9% INJ 100 ML IV SCH ×4 (05:00→21:57)
[2018-01-10 05:41] LABS: ALBUMIN 1.8 GM/DL (3.4-5.0); ALT (GPT) 22 U/L (12-78); AST (GOT) 23 U/L (15-37); BICARBONATE 24.3 MEQ/L (21.0-32.0); BLOOD UREA NITROGEN 14 MG/DL (7-18); CALCIUM 8.4 MG/DL (8.5-10.1); CHLORIDE 112 MEQ/L (98-107); CREATININE 1.16 MG/DL (0.60-1.30); GLOMERULAR FILTRATION RATE 84 ML/MIN (>89); GLUCOSE,RANDOM 109 MG/DL (74-106); MAGNESIUM 1.9 MG/DL (1.5-2.5); PHOSPHORUS 2.9 MG/DL (2.5-4.9); SODIUM (NA) 144 MEQ/L (136-145)
[2018-01-10 05:42] LABS: ALKALINE PHOSPHATASE 255 U/L (45-117); TOTAL BILIRUBIN ADULT 0.2 MG/DL (0.2-1.0); TOTAL PROTEIN 6.8 GM/DL (6.4-8.2)
[2018-01-10] MEDS: SODIUM CHLOR 0.9% 1000 ML INJ 1,000 ML IV SCH ×2 (06:47→21:57)
[2018-01-10 07:16] LABS: AUTOMATED NEUTROPHIL # 11.3 TH/MM3 (1.8-7.7); BASOPHIL # 0.1 TH/MM3 (0-0.2); BASOPHIL % 0.4 % (0.0-2.0); EOSINOPHIL # 0.2 TH/MM3 (0-0.4); EOSINOPHIL % 1.2 % (0.0-4.0); HEMOGLOBIN 8.3 GM/DL (13.0-17.0); LYMPH % 13.1 % (9.0-44.0); MEAN CELL VOLUME 76.8 FL (80.0-100.0); MEAN CORPUSCULAR HEMOGLOBIN 25.3 PG (27.0-34.0); MEAN PLATELET VOLUME 7.7 FL (7.0-11.0); MONO % 9.9 % (0.0-8.0); MONOCYTE # 1.5 TH/MM3 (0-0.9); NEUT % 75.4 % (16.0-70.0); PLATELET COUNT 472 TH/MM3 (150-450); RED BLOOD COUNT 3.26 MIL/MM3 (4.50-5.90); RED CELL DISTRIBUTION WIDTH 14.3 % (11.6-17.2)
[2018-01-10] MEDS: INSULIN ASPART SUPPLEMENTAL SCALE SQ SCH ×4 (08:00→21:00)
[2018-01-10] MEDS: DOCUSATE SODIUM 50 MG/SENNA 8.6 MG TAB PO SCH ×2 (09:00→20:59)
[2018-01-10] MEDS: POLYETHYLENE GLYCOL 17 GM PKG PO SCH (09:00)
[2018-01-10] MEDS: GABAPENTIN 300 MG CAP PO SCH ×3 (09:03→17:11)
[2018-01-10] MEDS: PANTOPRAZOLE SOD 20 MG DELAYED RELEASE TAB PO SCH (09:04)
[2018-01-10] MEDS: ASPIRIN EC 81 MG TABEC PO SCH (09:04)
[2018-01-10] MEDS: LISINOPRIL 10 MG TAB PO SCH (09:05)
[2018-01-10] MEDS: CLOPIDOGREL 75 MG TAB PO SCH (09:05)
[2018-01-10] MEDS: amLODIPine BESYLATE 5 MG TAB PO SCH (09:05)
[2018-01-10] MEDS: oxyCODONE/ACETAMINOPHEN 7.5 MG/325 MG TAB PO PRN (09:06)
[2018-01-10] MEDS: INSULIN ASPAR PROT 70/30 1,000 UNITS/10 ML VIAL SQ SCH ×2 (09:07→17:13)
[2018-01-10] MEDS: MORPHINE SULFATE 4 MG/ML INJ IV PUSH PRN ×2 (10:16→17:12)
[2018-01-10] MEDS ORDERED: NALOXONE HCL 0.4 MG/ML AMP IV PUSH PRN (11:00)
--- NOTE | 2018-01-10 11:02 | HHI.PR ---
Subjective Remarks Patient is a 43-year-old male diabetic insulin requiring, hypertension who about 2 weeks prior to admission complaining complained of swelling of the right foot. Patient with fever and chills. Next day developed blister on the anterior aspect of the foot and sought consult with the PCP where it was initially told it was gout.. patient also states that he was also placed on Bactrim for 5 days. 4 days later with worsening swelling. Draining foul- smelling yellowish exudate minimal per . He was seen in follow-up by primary care physician and was sent here for further evaluation and management. Patient states good hypoglycemic awareness. He states that he was just also recently started on 7030 10 units twice a day. Patient complains of neuropathic pain for which he takes gabapentin. 5-15 Nursing reports patient having substantial pain. Otherwise no other medical deterioration since last night. Patient denies ever being put on a cholesterol medication in the past. 5-16 SP ANGIOGRAM TODAY WITH ANGIOPLASTY Patient states he "BOOTLEGS DM MEDICATIONS FROM FAMILY" WAS ALSO SMOKING PRIOR TO COMING TO THE HOSPITAL NEEDS TO CONTROL SUGARS AND STOP SMOKING DW RN AND PT AND CM AND FAMILY NEEDS DM EDUCATION 5-17 HTN NOT AT GOAL ADD NORVASC 5MG PO DAILY AM LABS DW ID AND RN AND PT AND FAMILY NEEDS TO HAVE TIGHT CONTROL OF SUGARS SP RIGHT 4TH TOE AMPUTATION ON VANCO AND ZOSYN 5-18 for surgery with VASCULAR NEXT WEEK COMPLAINS OF CONSTIPATION DW RN AND PT 5-19 FOR VASCULAR SURGERY NEXT WEEK NO SOB NO CHEST PAIN HAS PAIN AND SWELLING OF RIGHT UPPER EXTREMITY WILL GET US DOPPLER DW RN AND PT 5-20 PATIENT COMPLAINS OF PAIN IN RIGHT LE TO HAVE SURGERY LATER THIS WEEK WITH DR LYMAN REGARDING REVASCULARIZATION DW RN AND PT AND FAMILY ADJUST PAIN MEDS BLOOD CLOT IN RIGHT UPPER EXTREMITY- WILL NEED ANTICOAGULATION OF SOME TYPE FOR THIS Objective Vitals Vital Signs Date Time Temp Pulse Resp B/P (MAP) Pulse Ox O2 Delivery O2 Flow Rate FiO2 01/10/18 08:27 95 21 01/10/18 08:00 Room Air 2.00 21 01/10/18 08:00 98.9 82 20 148/81 (103) 96 01/10/18 04:00 98.3 94 18 169/88 (115) 97 01/10/18 04:00 Room Air 01/10/18 00:01 Room Air 01/10/18 00:01 99.4 101 19 183/81 (115) 96 01/09/18 20:02 101.4 01/09/18 20:01 Room Air 01/09/18 20:01 100.1 94 19 157/82 (107) 96 01/09/18 16:00 98.9 76 20 124/62 (82) 97 01/09/18 12:00 99.2 88 20 186/104 (131) 97 I/O 01/09/18 01/09/18 01/09/18 01/10/18 01/10/18 01/10/18 07:00 15:00 23:00 07:00 15:00 23:00 Intake Total 367 ml 580 ml 1467 ml Output Total 600 ml 1500 ml Balance -233 ml 580 ml -33 ml Intake Oral 480 ml 720 ml IV Total 367 ml 100 ml 747 ml Output Urine Total 600 ml 1500 ml # Voids 2 # Bowel Movements 0 1 Result Diagram: 01/10/18 0429 01/10/18 0429 Other Results Laboratory Tests Test 01/08/18 04:42 01/10/18 04:29 White Blood Count 14.6 TH/MM3 15.0 TH/MM3 Red Blood Count 3.22 MIL/MM3 3.26 MIL/MM3 Hemoglobin 8.1 GM/DL 8.3 GM/DL Hematocrit 24.6 % 25.0 % Mean Corpuscular Volume 76.3 FL 76.8 FL Mean Corpuscular Hemoglobin 25.3 PG 25.3 PG Mean Corpuscular Hemoglobin Concent 33.2 % 33.0 % Red Cell Distribution Width 14.3 % 14.3 % Platelet Count 441 TH/MM3 472 TH/MM3 Mean Platelet Volume 7.6 FL 7.7 FL Neutrophils (%) (Auto) 76.2 % 75.4 % Lymphocytes (%) (Auto) 12.6 % 13.1 % Monocytes (%) (Auto) 9.0 % 9.9 % Eosinophils (%) (Auto) 1.7 % 1.2 % Basophils (%) (Auto) 0.5 % 0.4 % Neutrophils # (Auto) 11.1 TH/MM3 11.3 TH/MM3 Lymphocytes # (Auto) 1.8 TH/MM3 2.0 TH/MM3 Monocytes # (Auto) 1.3 TH/MM3 1.5 TH/MM3 Eosinophils # (Auto) 0.2 TH/MM3 0.2 TH/MM3 Basophils # (Auto) 0.1 TH/MM3 0.1 TH/MM3 CBC Comment DIFF FINAL DIFF FINAL Differential Comment Blood Urea Nitrogen 16 MG/DL 14 MG/DL Creatinine 1.58 MG/DL 1.16 MG/DL Random Glucose 119 MG/DL 109 MG/DL Total Protein 6.9 GM/DL 6.8 GM/DL Albumin 1.9 GM/DL 1.8 GM/DL Calcium Level 8.2 MG/DL 8.4 MG/DL Phosphorus Level 3.1 MG/DL 2.9 MG/DL Magnesium Level 1.9 MG/DL 1.9 MG/DL Alkaline Phosphatase 153 U/L 255 U/L Aspartate Amino Transf (AST/SGOT) 19 U/L 23 U/L Alanine Aminotransferase (ALT/SGPT) 15 U/L 22 U/L Total Bilirubin 0.1 MG/DL 0.2 MG/DL Sodium Level 142 MEQ/L 144 MEQ/L Potassium Level 4.3 MEQ/L 4.1 MEQ/L Chloride Level 111 MEQ/L 112 MEQ/L Carbon Dioxide Level 23.1 MEQ/L 24.3 MEQ/L Anion Gap 8 MEQ/L 8 MEQ/L Estimat Glomerular Filtration Rate 59 ML/MIN 84 ML/MIN Imaging Last Impressions Upper Extremity Ultrasound 01/09/18 0000 Signed Impressions: Service Date/Time: Tuesday, January 09, 2018 13:07 - CONCLUSION: 1. Mixture of occlusive and nonocclusive thrombus throughout the cephalic vein extending to the mid upper arm. Giorgi Rider MD Lower Extremity Ultrasound 01/06/18 0000 Signed Impressions: Service Date/Time: Saturday, January 06, 2018 17:05 - CONCLUSION: No DVT. Gibson Isaac MD Foot MRI 01/06/18 0000 Signed Impressions: Service Date/Time: Saturday, January 06, 2018 15:27 - CONCLUSION: Generalized edema with minimal enhancement in the operative bed, nonspecific. No evidence rales myelitis. Antonio Cole MD FACR Chest X-Ray 01/05/18 0600 Signed Impressions: Service Date/Time: Friday, January 05, 2018 09:18 - CONCLUSION: 1. No acute cardiopulmonary findings. Fausto Cole MD Lower Extremity CT 01/04/18 0000 Signed Impressions: Service Date/Time: Thursday, January 04, 2018 17:37 - CONCLUSION: 1. Soft tissue ulcer in the lateral proximal forefoot with subcutaneous air extending to the base of the fourth digit. No definite osseous abnormality to suggest osteomyelitis. Consider MRI examination if there is continued clinical concern. Giorgi Rider MD Foot X-Ray 01/04/18 0000 Signed Impressions: Service Date/Time: Thursday, January 04, 2018 12:43 - CONCLUSION: Negative for acute process. Antonio Cole MD FACR Objective Remarks GENERAL: Awake and alert and oriented 3 talkative and cooperative SKIN: Warm and dry. Right lower extremity is dressed HEAD: Atraumatic. Normocephalic. EYES: Pupils equal and round. No scleral icterus. No injection or drainage. Extraocular muscles intact ENT: No nasal bleeding or discharge. Mucous membranes pink and moist. Tongue is midline NECK: Trachea midline. No JVD. Supple CARDIOVASCULAR: Regular rate and rhythm. S1-S2 no S3 or S4 RESPIRATORY: No accessory muscle use. Clear to auscultation. Breath sounds equal bilaterally. GASTROINTESTINAL: Abdomen soft, non-tender, nondistended. Hepatic and splenic margins not palpable. Obese MUSCULOSKELETAL: Extremities without clubbing, cyanosis, or edema. No obvious deformities. Right lower extremity is dressed TENDER RIGHT UE POSITIVE CLOT NEUROLOGICAL: Awake and alert. No obvious cranial nerve deficits. Motor grossly within normal limits. 4 out of 5 muscle strength in the arms and legs. Normal speech. TENDER RIGHT UE POSITIVE CLOT PSYCHIATRIC: Appropriate mood and affect; insight and judgment normal. Procedures ANGIOGRAM 01-06 Moe Lyman MD DATE OF OPERATION: PREOPERATIVE DIAGNOSIS: Right lower extremity tissue loss, peripheral vascular disease. POSTOPERATIVE DIAGNOSIS: Right lower extremity tissue loss, peripheral vascular disease. PROCEDURE PERFORMED: 1. Aortogram with right lower extremity angiogram. 2. Right SFA and popliteal artery angioplasty with 5 mm balloon. 3. Left common femoral artery Angio-Seal. OPERATING SURGEON: Moe Lyman MD ANESTHESIA: Local with sedation. INDICATIONS: Mr. Garibay is a 42-year-old gentleman with right lower extremity tissue loss. He is taken to the operating room for angiographic evaluation and potential treatment. There was no prior catheter-based imaging available for my review. DESCRIPTION OF PROCEDURE: Informed consent was obtained from the patient. He was taken to the operating room and placed supine on the operating table. An appropriate timeout was taken to ensure the patient's identity, the operative site and planned procedure. The administration of antibiotics was not necessary as this is a clean procedure without the planned implantation of any foreign object. Everyone in the room agreed with timeout and we proceeded. His bilateral groins prepped and draped. Left groin was anesthetized with 1% lidocaine. A 21-gauge micropuncture needle was used to access the left common femoral artery, was exchanged using Seldinger technique through micropuncture sheath, which a 0.035 Glidewire was introduced. Micropuncture sheath was exchanged for a 4-Fijian sheath. A VCF catheter was placed over the wire and through the sheath and aortogram, pelvic arteriogram was obtained. The Glidewire was reintroduced and navigated down to the right common femoral artery and the VCF catheter was advanced over this and a right lower extremity arteriogram was obtained. The patient was systemically heparinized with 5000 units of IV Heparin. A 0.035 Ceballos wire was introduced down to the mid SFA and the VCF catheter and 4-Fijian sheath were removed and a 6-Fijian 55 cm Dimitry sheath was introduced. A CXI catheter was placed over the wire into the sheath and the wire was exchanged for a MEDIA DEVELOPER wire. Using the MEDIA DEVELOPER wire and CXI catheter we were able to navigate through the SFA lesion and the popliteal lesion. Both of these were angioplastied with a 5 x 200 and 5 x 80 balloon, respectively. The completion angiogram showed excellent result on recoil extravasation. We then did advance the catheter down to the popliteal artery. An angiogram was obtained. The wire, catheter and sheath were removed and the groin was closed with Angio-Seal. There were no complications. I was present and scrubbed for the entire procedure. INTERPRETATION OF IMAGES: The patient has a patent terminal aorta, common iliac arteries, hypogastric arteries and external iliac arteries, none of which have any hemodynamically significant stenoses. The right common femoral artery and profunda are patent without any hemodynamically significant stenosis. The proximal SFA is patent. The mid SFA has high-grade diffuse stenosis that was successfully angioplastied and the popliteal artery had a similar high-grade diffuse stenosis that was successfully angioplastied. The below knee popliteal artery occludes and there was no posterior tibial artery or peroneal artery proximally. The perigeniculate collaterals give rise to the posterior tibial artery in the mid to distal calf. , 09:14 AM Masoud Gates DPM DATE OF OPERATION: 01/05/2018 PREOPERATIVE DIAGNOSIS: Right fourth digit gangrene, abscess, diabetic foot infection. POSTOPERATIVE DIAGNOSIS: Right fourth digit gangrene, abscess, diabetic foot infection. PROCEDURE PERFORMED: Right fourth digit amputation, incision and drainage deep, right foot. INTRAOPERATIVE FINDINGS: Minimal bleeding. Foul odor at level of amputation site. S SPECIMENS: Fourth digit for pathology. Deep culture at amputation site for micro. ESTIMATED BLOOD LOSS: Less than 30 mL ANESTHESIA: General. DRAINS: None. TOURNIQUET: None. DISPOSITION: Returned to floor for vascular intervention and monitor of foot. May need wound VAC versus repetitive debridements versus amputation at a later date. JUSTIFICATION FOR PROCEDURE: A 42-year-old diabetic male with a history of smoking, was admitted. CT showed gas within the tissue at the base of the fourth digit. The patient was planned for vascular intervention; however, we wished to eradicate infection or at least debulk the infection first. The patient was educated on risks and benefits, need for more surgery, loss of limb. No guarantees were given or implied regarding the outcome. PROCEDURE IN DETAIL: Under mild sedation, the patient was brought into the operating room, placed on the operating table in supine position. Following the induction of general anesthesia, the patient's right lower extremity was scrubbed, prepped and draped in the usual aseptic fashion. The foot was elevated and examined. There was noted to be a necrotic, delayed capillary fill time, a putrid-smelling right fourth digit. A fishmouth mouth type incision was made disarticulating the digit down to the level of the joint. There were gas bubbles within the tissue. There was purulent drainage. There was a full-thickness eschar of the dorsum of the foot that had an odor. This was sharply unroofed down to the tendon sheath with exposed fourth metatarsal. There was no obvious signs of tracking deep within the plantar aspect of the foot or along the dorsal aspect of the foot. This was flushed with copious amounts of normal saline. Minimal Bovie and ligation was needed throughout the case. The wound was packed open, soft bandage applied. The patient was transferred from OR to PACU with all vital signs stable. The patient will be monitored after a vascular attempt. Overall prognosis is poor given the history of smoking and diabetes. I will see the patient within 1-2 days. Masoud Gates, DPM Medications and IVs Current Medications Morphine Sulfate (Morphine Inj) 4 mg ONCE ONCE IV PUSH Last administered on 13:34; Start 01/04/18 at 12:15; Stop 01/04/18 at 12:16; Status DC Ondansetron HCl (Zofran Odt) 4 mg ONCE ONCE PO Last administered on 13:33; Start 01/04/18 at 12:15; Stop 01/04/18 at 12:16; Status DC Piperacillin Sod/ Tazobactam Sod 50 ml @ 100 mls/hr ONCE ONCE IV Last administered on 01/04/18 13:34; Start 01/04/18 at 12:15; Stop 01/04/18 at 12:44 ; Status DC Vancomycin HCl 1000 mg/Sodium Chloride 250 ml @ 250 mls/hr ONCE ONCE IV Last administered on 01/04/18 14:20; Start 01/04/18 at 12:15; Stop 01/04/18 at 13:14 ; Status DC Sodium Chloride 1,000 ml @ 1,000 mls/hr Q1H IV Last administered on 01/04/18 13:34; Start 01/04/18 at 12:13; Stop 01/04/18 at 13:12; Status DC Aspirin (Aspirin Chew) 324 mg ONCE ONCE CHEW Last administered on 01/04/18 13 :33; Start 01/04/18 at 13:15; Stop 01/04/18 at 13:16; Status DC Dextrose (D25w Inj) 10 ml ONCE ONCE IV PUSH Last administered on 01/04/18at 14: 28; Start 01/04/18 at 13:45; Stop 01/04/18 at 13:46; Status DC Sodium Chloride 1,000 ml @ 70 mls/hr [id number] IV Last administered on at 06:47; Start 01/04/18 at 15:00 Lisinopril (Prinivil) 10 mg DAILY PO Last administered on 01/10/18at 09:05; Start 01/05/18 at 09:00 Gabapentin (Neurontin) 300 mg TID PO Last administered on 01/10/18at 09:03; Start 01/04/18 at 18:00 Dextrose (D50w (Vial) Inj) 50 ml UNSCH PRN IV PUSH HYPOGLYCEMIA-SEE COMMENTS; Start 01/04/18 at 17:45; Stop 01/06/18 at 10:41; Status DC Glucagon (Glucagon Inj) 1 mg UNSCH PRN OTHER HYPOGLYCEMIA-SEE COMMENTS; Start 01/04/18 at 17:45; Stop 01/06/18 at 10:41; Status DC Insulin Aspart (NovoLOG SUPPLEMENTAL SCALE) 1 ACHS SLIDING SCALE SQ Last administered on 01/06/18at 07:45; Start 01/04/18 at 21:00; Stop 01/06/18 at 10:41 ; Status DC Piperacillin Sod/ Tazobactam Sod 50 ml @ 100 mls/hr Q6H IV ; Start 01/04/18 at 20:00; Status Cancel Pharmacy Profile Note 0 ml @ 0 mls/hr UNSCH OTHER ; Start 01/04/18 at 18:00; Stop 01/07/18 at 14:48; Status DC Vancomycin HCl 1000 mg/Sodium Chloride 250 ml @ 250 mls/hr Q12H IV ; Start at 06:00; Stop 01/05/18 at 06:00; Status DC Oxycodone/ Acetaminophen (Percocet 5-325 Mg) 1 tab Q6HR PRN PO PAIN SCALE 3 TO 5; Start 01/04/18 at 18:00 Oxycodone/ Acetaminophen (Percocet 7.5-325 Mg) 1 tab Q6H PRN PO PAIN SCALE 6 TO 10 Last administered on 01/10/18at 09:06; Start 01/04/18 at 18:00 Pantoprazole Sodium (Protonix) 20 mg DAILY PO Last administered on 01/10/18at 09 :04; Start 01/05/18 at 09:00 Vancomycin HCl 1250 mg/Sodium Chloride 262.5 ml @ 250 mls/hr Q12H IV Last administered on 01/06/18at 13:24; Start 01/05/18 at 01:00; Stop 01/06/18 at 15:21 ; Status DC Cefepime HCl 2000 mg/Sodium Chloride 100 ml @ 200 mls/hr Q12H IV Last administered on 01/05/18at 06:04; Start 01/04/18 at 18:00; Stop 01/05/18 at 12:37 ; Status DC Miscellaneous Information ([facility] [place] SPECIFIC LAB TO BE ROSALEE... ONCE ONCE .XX Last administered on 01/06/18at 12:45; Start 01/06/18 at 12:45; Stop 01/06/18 at 12:46; Status DC Zolpidem Tartrate (Ambien) 5 mg ONCE ONCE PO Last administered on 01/04/18at 22 :40; Start 01/04/18 at 22:15; Stop 01/04/18 at 22:16; Status DC Morphine Sulfate (Morphine Inj) 4 mg Q4H PRN IV PUSH BREAKTHROUGH PAIN Last administered on 01/10/18at 10:16; Start 01/05/18 at 10:15 Piperacillin Sod/ Tazobactam Sod 50 ml @ 100 mls/hr Q6H IV Last administered on 01/07/18at 14:49; Start 01/05/18 at 14:00; Stop 01/07/18 at 17:46; Status DC Aspirin (Ecotrin Ec) 81 mg DAILY PO Last administered on 01/10/18at 09:04; Start 01/06/18 at 09:00 Atorvastatin Calcium (Lipitor) 40 mg HS PO Last administered on 01/09/18at 22:19 ; Start 01/05/18 at 21:00 Iron Sucrose 200 mg/Sodium Chloride 110 ml @ 110 mls/hr DAILY IV Last administered on 01/07/18at 12:23; Start 01/05/18 at 15:00; Stop 01/07/18 at 09:59 ; Status DC Bupivacaine HCl (Marcaine Pf 0.25% Inj) 30 ml STK-MED ONCE .ROUTE ; Start at 16:45; Stop 01/05/18 at 16:46; Status DC Neomycin/Polymyxin (Neosporin G.u. Irr) 1 ml STK-MED ONCE .ROUTE ; Start at 16:55; Stop 01/05/18 at 16:56; Status DC Acetaminophen 100 ml @ As Directed STK-MED ONCE IV ; Start 01/05/18 at 18:17; Stop 01/05/18 at 18:18; Status DC Lactated Ringer's 1,000 ml @ 30 mls/hr Q24H PRN IV SEE LABEL COMMENTS; Start at 18:45; Stop 01/08/18 at 18:44; Status DC Sodium Chloride 500 ml @ 30 mls/hr [id number] PRN IV SEE LABEL COMMENTS; Start at 18:45; Stop 01/08/18 at 18:44; Status DC Povidone Iodine (Betadine 5% Antisepsis Kit) 1 applic ENDING MACHINE OPERATOR PRN EACH NARE SEE LABEL COMMENTS; Start 01/05/18 at 18:45; Stop 01/08/18 at 18:44; Status DC Chlorhexidine Gluconate (Chlorhexidine 2% Cloth) 3 pack ENDING MACHINE OPERATOR PRN TOPICAL SEE LABEL COMMENTS; Start 01/05/18 at 18:45; Stop 01/08/18 at 18:44; Status DC Midazolam HCl (Versed Inj) 2 mg STK-MED ONCE .ROUTE ; Start 01/05/18 at 19:26; Stop 01/05/18 at 19:27; Status DC Miscellaneous Information ([facility] [facility] ALL NURSING DEPARTME... UNSCH PRN .XX SEE LABEL COMMENTS; Start 01/05/18 at 20:30; Stop 01/06/18 at 20: 29; Status DC Fentanyl Citrate (fentaNYL INJ) 100 mcg STK-MED ONCE .ROUTE Last administered on 01/06/18at 08:04; Start 01/06/18 at 08:04; Stop 01/06/18 at 08:05; Status DC Midazolam HCl (Versed Inj) 5 mg STK-MED ONCE .ROUTE Last administered on at 08:04; Start 01/06/18 at 08:04; Stop 01/06/18 at 08:05; Status DC Heparin Sodium/ Sodium Chloride 2,000 ml @ As Directed STK-MED ONCE IV FLUSH ; Start 01/06/18 at 08:04; Stop 01/06/18 at 08:05; Status DC Heparin Sodium (Porcine) (Heparin Inj) 10,000 units STK-MED ONCE .ROUTE Last administered on 01/06/18at 08:29; Start 01/06/18 at 08:29; Stop 01/06/18 at 08:30 ; Status DC Clopidogrel Bisulfate (Plavix) 150 mg ONCE ONCE PO Last administered on at 09:15; Start 01/06/18 at 09:15; Stop 01/06/18 at 09:33; Status DC Clopidogrel Bisulfate (Plavix) 75 mg DAILY PO Last administered on 01/10/18at 09 :05; Start 01/08/18 at 09:00 Insulin Aspart Prota 70%/Aspart 30% (NovoLOG MIX 70/ 30 INJ) 30 units BID@0800, 1700 SQ Last administered on 01/10/18at 09:07; Start 01/06/18 at 17:00 Insulin Aspart (NovoLOG SUPPLEMENTAL SCALE) 1 ACHS SLIDING SCALE SQ Last administered on 01/09/18at 21:00; Start 01/06/18 at 12:00 Iohexol (OMNIPAQUE 350 INJ (Furniture Delivery Driver)) 100 ml STK-MED ONCE OTHER ; Start at 11:30; Stop 01/06/18 at 11:31; Status DC Vancomycin HCl 1500 mg/Sodium Chloride 515 ml @ 250 mls/hr Q18H IV Last administered on 01/07/18at 05:20; Start 01/07/18 at 06:00; Stop 01/07/18 at 14:48 ; Status DC Miscellaneous Information ([facility] [place] Info) SPECIFIC LAB TO BE DRAWN:VANCOMYCIN TROUGH DATE TO... ONCE ONCE .XX ; Start 01/09/18 at 11:45; Stop 01/09/18 at 11:46; Status Cancel Gadodiamide (Omniscan Pf Inj) 20 ml STK-MED ONCE IVCONTRAST Last administered on 01/06/18at 16:04; Start 01/06/18 at 16:04; Stop 01/06/18 at 16:05; Status DC Phenylephrine HCl (Neosynephrine/ NS 1000 Mcg/10ml Syr) 1,000 mcg STK-MED ONCE IV ; Start 01/05/18 at 12:00; Stop 01/07/18 at 10:56; Status DC Ephedrine Sulfate (ePHEDrine/NS 25 MG/5 ML SYR) 25 mg STK-MED ONCE IV ; Start at 12:00; Stop 01/07/18 at 10:56; Status DC Dexamethasone Sodium Phosphate (Decadron Inj) 4 mg STK-MED ONCE IV ; Start 01/05 at 12:00; Stop 01/07/18 at 10:56; Status DC Ondansetron HCl (Zofran Inj) 4 mg STK-MED ONCE IV ; Start 01/05/18 at 12:00; Stop 01/07/18 at 10:56; Status DC Amlodipine Besylate (Norvasc) 5 mg ONCE ONCE PO Last administered on at 15:23; Start 01/07/18 at 15:15; Stop 01/07/18 at 15:16; Status DC Amlodipine Besylate (Norvasc) 5 mg DAILY PO Last administered on 01/10/18at 09: 05; Start 01/08/18 at 09:00 Clonidine (Catapres) 0.1 mg Q4H PRN PO SBP>160, DBP>90 Last administered on at 13:34; Start 01/07/18 at 15:45 Piperacillin Sod/ Tazobactam Sod 50 ml @ 100 mls/hr Q6H IV Last administered on 01/08/18at 14:55; Start 01/07/18 at 21:00; Stop 01/08/18 at 15:48; Status DC Naloxone HCl (Narcan Inj) 0.4 mg UNSCH PRN IV PUSH SEE LABEL COMMENTS; Start at 14:30 Senna/Docusate Sodium (Trixie-Colace) 1 tab BID PO Last administered on at 22:20; Start 01/08/18 at 15:00 Magnesium Hydroxide (Milk Of Magnesia Liq) 30 ml Q12H PRN PO Mild constipation ; Start 01/08/18 at 14:30 Sennosides (Senokot) 17.2 mg Q12H PRN PO Moderate constipation; Start 01/08/18 at 14:30 Bisacodyl (Dulcolax Supp) 10 mg DAILY PRN RECTAL SEVERE CONSITIPATION; Start at 14:30 Lactulose (Lactulose Liq) 30 ml DAILY PRN PO SEVERE CONSITIPATION; Start at 14:30 Polyethylene Glycol (Miralax) 17 gm ONCE ONCE PO Last administered on at 14:56; Start 01/08/18 at 15:00; Stop 01/08/18 at 15:01; Status DC Polyethylene Glycol (Miralax) 17 gm DAILY PO ; Start 01/09/18 at 09:00 Ampicillin Sodium/ Sulbactam Sodium 3 gm/Sodium Chloride 100 ml @ 200 mls/hr Q6H IV Last administered on 01/10/18at 10:17; Start 01/08/18 at 17:00 Acetaminophen (Tylenol) 650 mg Q4H PRN PO temp > 101 Last administered on at 22:22; Start 01/09/18 at 20:45 A/P Problem List: (1) Leukocytosis ICD Code: D72.829 - Elevated white blood cell count, unspecified Status: Acute (2) Peripheral vascular disease ICD Code: I73.9 - Peripheral vascular disease, unspecified Status: Acute (3) Diabetic foot infection ICD Code: E11.628 - Type 2 diabetes mellitus with other skin complications; L08.9 - Local infection of the skin and subcutaneous tissue, unspecified Status: Acute (4) Renal insufficiency ICD Code: N28.9 - Disorder of kidney and ureter, unspecified (5) Hypertension ICD Code: I10 - Essential (primary) hypertension (6) DVT (deep venous thrombosis) ICD Code: I82.409 - Acute embolism and thrombosis of unspecified deep veins of unspecified lower extremity Assessment and Plan 42-year-old male Sepsis secondary to diabetic right foot infection with dry gangrene 4th digit with possible abscess on exam and possible underlying OM -Blood cultures pending, see treatment below MSSA ON AMPICILLIN SULBACTAM NOW PER ID Suspected dry gangrene -Discussed with infectious disease, needs anaerobic and aerobic coverage, continue AMPICILLIN SULBACTAM NOW PER ID -Podiatry plans for debridement 5-15 SP AMPUTATION Peripheral vascular disease -Vascular surgery plans intervention -16 -start Lipitor -Baby aspirin SP angioplasty January [address] Lyman SURGERY ON RIGHT FOOT/LEG WITH VASCULAR THIS WEEK Acute kidney injury SUSPECT CHRONIC KIDNEY DISEASE STAGE 2 TO 3 - improving w/ IVF -BMP in AM Microcytic anemia -Show substantial iron deficiency, will start Venofer, obtain Hemoccult 3 Diabetes type 2 -Hold metformin for now, sliding scale with Accu-Chek SEVERELY UNCONTROLLED HGBA1C 14.3- WILL NEED INSULIN PROBABLY FROM [facility] [place] Malignant medical noncompliance due to lack of insurance and uncontrolled diabetes Diabetic neuropathy -Continue on gabapentin Hypertension. -Continue lisinopril ADD NORVASC Hyperlipidemia started on Lipitor Continue on anticoagulation per vascular surgery now on aspirin and Plavix and Lipitor Malignant noncompliance due to monetary issues Tobacco abuse recommend cessation lifelong due to diabetes and severe peripheral vascular occlusive disease No pharmacological anticoagulation at this time given impending surgery, SCD on left lower extremity only given pathology on right lower external CONSTIPATION START MEDS RIGHT UE PAIN CHECK US OF RIGHT UE FOR DVT- POSITIVE FOR CLOT CONTINUE ANTICOAGULATION Discharge Planning Pending improvement AND SURGERY Problem Qualifiers (1) Leukocytosis: Qualified Codes: D72.829 - Elevated white blood cell count, unspecified Antonio Martell DO January 10, 2018 11:02
[2018-01-10] MEDS: oxyCODONE/ACETAMINOPHEN 10 MG/325 MG TAB PO PRN ×2 (15:08→20:59)
[2018-01-10] MEDS: cloNIDine HCL 0.1 MG TAB PO PRN ×2 (17:14→20:59)
[2018-01-10] MEDS: ATORVASTATIN 40 MG TAB PO SCH (20:59)
[2018-01-11] VITALS (7 sets, daily range): BP systolic 133–182; BP diastolic 70–93; PULSE 75–104; RESP 17–20; TEMP 98.6–100.1; O2SAT 96–99
[2018-01-11] MEDS: oxyCODONE/ACETAMINOPHEN 10 MG/325 MG TAB PO PRN ×3 (04:35→18:34)
[2018-01-11] MEDS: AMPICILLIN-SULBACTAM INJ 3 GM in SODIUM CHLORIDE 0.9% INJ 100 ML IV SCH ×4 (04:35→21:27)
[2018-01-11 05:36] LABS: AUTOMATED NEUTROPHIL # 10.2 TH/MM3 (1.8-7.7); BASOPHIL # 0.1 TH/MM3 (0-0.2); BASOPHIL % 0.6 % (0.0-2.0); EOSINOPHIL # 0.2 TH/MM3 (0-0.4); EOSINOPHIL % 1.7 % (0.0-4.0); HEMATOCRIT 24.5 % (39.0-51.0); LYMPH % 14.6 % (9.0-44.0); MEAN CORPUSCULAR HEMOGLOBIN 25.1 PG (27.0-34.0); MEAN CORPUSCULAR HGB CONC 32.6 % (32.0-36.0); MEAN PLATELET VOLUME 7.6 FL (7.0-11.0); MONO % 11.1 % (0.0-8.0); MONOCYTE # 1.6 TH/MM3 (0-0.9); PLATELET COUNT 450 TH/MM3 (150-450); RED BLOOD COUNT 3.18 MIL/MM3 (4.50-5.90); RED CELL DISTRIBUTION WIDTH 14.7 % (11.6-17.2); WHITE BLOOD COUNT 14.1 TH/MM3 (4.0-11.0)
[2018-01-11 05:48] LABS: ALBUMIN 1.7 GM/DL (3.4-5.0); ALT (GPT) 22 U/L (12-78); AST (GOT) 24 U/L (15-37); BICARBONATE 22.1 MEQ/L (21.0-32.0); BLOOD UREA NITROGEN 14 MG/DL (7-18); CHLORIDE 110 MEQ/L (98-107); CREATININE 1.19 MG/DL (0.60-1.30); GLOMERULAR FILTRATION RATE 82 ML/MIN (>89); GLUCOSE,RANDOM 59 MG/DL (74-106); PHOSPHORUS 3.5 MG/DL (2.5-4.9); SODIUM (NA) 141 MEQ/L (136-145)
[2018-01-11 05:50] LABS: ALKALINE PHOSPHATASE 270 U/L (45-117); TOTAL BILIRUBIN ADULT 0.2 MG/DL (0.2-1.0); TOTAL PROTEIN 6.8 GM/DL (6.4-8.2)
[2018-01-11] MEDS: INSULIN ASPART SUPPLEMENTAL SCALE SQ SCH ×4 (07:51→21:00)
[2018-01-11] MEDS: INSULIN ASPAR PROT 70/30 1,000 UNITS/10 ML VIAL SQ SCH ×2 (08:00→18:34)
--- NOTE | 2018-01-11 08:12 | HHI.PR ---
Subjective Remarks in no acute distress. resting comfortably. pain is controlled. no fever. no new complaints. Objective Vitals Vital Signs Date Time Temp Pulse Resp B/P (MAP) Pulse Ox O2 Delivery O2 Flow Rate FiO2 01/11/18 04:00 98.7 78 18 178/93 (121) 98 01/11/18 00:00 Room Air 01/11/18 00:00 98.7 75 17 133/70 (91) 97 01/10/18 20:00 Room Air 01/10/18 20:00 99.2 92 18 170/75 (106) 97 01/10/18 16:00 98.8 82 20 167/87 (113) 98 01/10/18 12:00 98.2 93 20 168/77 (107) 98 01/10/18 08:27 95 21 I/O 01/10/18 01/10/18 01/10/18 01/11/18 01/11/18 01/11/18 07:00 15:00 23:00 07:00 15:00 23:00 Intake Total 1467 ml 580 ml 1557 ml Output Total 1500 ml 1050 ml Balance -33 ml 580 ml 507 ml Intake Oral 720 ml 480 ml 820 ml IV Total 747 ml 100 ml 737 ml Output Urine Total 1500 ml 1050 ml # Voids 2 # Bowel Movements 1 1 1 Result Diagram: 01/11/18 0340 01/11/18 0340 Imaging Last Impressions Upper Extremity Ultrasound 01/09/18 0000 Signed Impressions: Service Date/Time: Tuesday, January 09, 2018 13:07 - CONCLUSION: 1. Mixture of occlusive and nonocclusive thrombus throughout the cephalic vein extending to the mid upper arm. Giorgi Rider MD Lower Extremity Ultrasound 01/06/18 0000 Signed Impressions: Service Date/Time: Saturday, January 06, 2018 17:05 - CONCLUSION: No DVT. Gibson Isaac MD Foot MRI 01/06/18 0000 Signed Impressions: Service Date/Time: Saturday, January 06, 2018 15:27 - CONCLUSION: Generalized edema with minimal enhancement in the operative bed, nonspecific. No evidence rales myelitis. Antonio Cole MD FACR Chest X-Ray 01/05/18 0600 Signed Impressions: Service Date/Time: Friday, January 05, 2018 09:18 - CONCLUSION: 1. No acute cardiopulmonary findings. Fausto Cole MD Lower Extremity CT 01/04/18 0000 Signed Impressions: Service Date/Time: Thursday, January 04, 2018 17:37 - CONCLUSION: 1. Soft tissue ulcer in the lateral proximal forefoot with subcutaneous air extending to the base of the fourth digit. No definite osseous abnormality to suggest osteomyelitis. Consider MRI examination if there is continued clinical concern. Giorgi Rider MD Foot X-Ray 01/04/18 0000 Signed Impressions: Service Date/Time: Thursday, January 04, 2018 12:43 - CONCLUSION: Negative for acute process. Antonio Cole MD FACR Objective Remarks GENERAL: This is a well-nourished, well-developed patient, in no apparent distress. CARDIOVASCULAR: Regular rate and regular rhythm without murmurs, gallops, or rubs. RESPIRATORY: Clear to auscultation. Breath sounds equal bilaterally. No wheezes , rales, or rhonchi. GASTROINTESTINAL: Abdomen soft, non-tender, nondistended. Normal, active bowel sounds MUSCULOSKELETAL: left foot covered with clean dressing. NEURO: Alert & Oriented x4 to person, place, time, situation. Moves all ext x4 Procedures ANGIOGRAM 5-16 Moe Cullen MD DATE OF OPERATION: PREOPERATIVE DIAGNOSIS: Right lower extremity tissue loss, peripheral vascular disease. POSTOPERATIVE DIAGNOSIS: Right lower extremity tissue loss, peripheral vascular disease. PROCEDURE PERFORMED: 1. Aortogram with right lower extremity angiogram. 2. Right SFA and popliteal artery angioplasty with 5 mm balloon. 3. Left common femoral artery Angio-Seal. OPERATING SURGEON: Moe Cullen MD ANESTHESIA: Local with sedation. INDICATIONS: Mr. Garibay is a 42-year-old gentleman with right lower extremity tissue loss. He is taken to the operating room for angiographic evaluation and potential treatment. There was no prior catheter-based imaging available for my review. DESCRIPTION OF PROCEDURE: Informed consent was obtained from the patient. He was taken to the operating room and placed supine on the operating table. An appropriate timeout was taken to ensure the patient's identity, the operative site and planned procedure. The administration of antibiotics was not necessary as this is a clean procedure without the planned implantation of any foreign object. Everyone in the room agreed with timeout and we proceeded. His bilateral groins prepped and draped. Left groin was anesthetized with 1% lidocaine. A 21-gauge micropuncture needle was used to access the left common femoral artery, was exchanged using Seldinger technique through micropuncture sheath, which a 0.035 Glidewire was introduced. Micropuncture sheath was exchanged for a 4-Beninese sheath. A VCF catheter was placed over the wire and through the sheath and aortogram, pelvic arteriogram was obtained. The Glidewire was reintroduced and navigated down to the right common femoral artery and the VCF catheter was advanced over this and a right lower extremity arteriogram was obtained. The patient was systemically heparinized with 5000 units of IV Heparin. A 0.035 Ceballos wire was introduced down to the mid SFA and the VCF catheter and 4-Beninese sheath were removed and a 6-Beninese 55 cm Dimitry sheath was introduced. A CXI catheter was placed over the wire into the sheath and the wire was exchanged for a HEEL TURNER wire. Using the HEEL TURNER wire and CXI catheter we were able to navigate through the SFA lesion and the popliteal lesion. Both of these were angioplastied with a 5 x 200 and 5 x 80 balloon, respectively. The completion angiogram showed excellent result on recoil extravasation. We then did advance the catheter down to the popliteal artery. An angiogram was obtained. The wire, catheter and sheath were removed and the groin was closed with Angio-Seal. There were no complications. I was present and scrubbed for the entire procedure. INTERPRETATION OF IMAGES: The patient has a patent terminal aorta, common iliac arteries, hypogastric arteries and external iliac arteries, none of which have any hemodynamically significant stenoses. The right common femoral artery and profunda are patent without any hemodynamically significant stenosis. The proximal SFA is patent. The mid SFA has high-grade diffuse stenosis that was successfully angioplastied and the popliteal artery had a similar high-grade diffuse stenosis that was successfully angioplastied. The below knee popliteal artery occludes and there was no posterior tibial artery or peroneal artery proximally. The perigeniculate collaterals give rise to the posterior tibial artery in the mid to distal calf. , 09:14 AM Masoud Gates DPM DATE OF OPERATION: 01/05/2018 PREOPERATIVE DIAGNOSIS: Right fourth digit gangrene, abscess, diabetic foot infection. POSTOPERATIVE DIAGNOSIS: Right fourth digit gangrene, abscess, diabetic foot infection. PROCEDURE PERFORMED: Right fourth digit amputation, incision and drainage deep, right foot. INTRAOPERATIVE FINDINGS: Minimal bleeding. Foul odor at level of amputation site. S SPECIMENS: Fourth digit for pathology. Deep culture at amputation site for micro. ESTIMATED BLOOD LOSS: Less than 30 mL ANESTHESIA: General. DRAINS: None. TOURNIQUET: None. DISPOSITION: Returned to floor for vascular intervention and monitor of foot. May need wound VAC versus repetitive debridements versus amputation at a later date. JUSTIFICATION FOR PROCEDURE: A 42-year-old diabetic male with a history of smoking, was admitted. CT showed gas within the tissue at the base of the fourth digit. The patient was planned for vascular intervention; however, we wished to eradicate infection or at least debulk the infection first. The patient was educated on risks and benefits, need for more surgery, loss of limb. No guarantees were given or implied regarding the outcome. PROCEDURE IN DETAIL: Under mild sedation, the patient was brought into the operating room, placed on the operating table in supine position. Following the induction of general anesthesia, the patient's right lower extremity was scrubbed, prepped and draped in the usual aseptic fashion. The foot was elevated and examined. There was noted to be a necrotic, delayed capillary fill time, a putrid-smelling right fourth digit. A fishmouth mouth type incision was made disarticulating the digit down to the level of the joint. There were gas bubbles within the tissue. There was purulent drainage. There was a full-thickness eschar of the dorsum of the foot that had an odor. This was sharply unroofed down to the tendon sheath with exposed fourth metatarsal. There was no obvious signs of tracking deep within the plantar aspect of the foot or along the dorsal aspect of the foot. This was flushed with copious amounts of normal saline. Minimal Bovie and ligation was needed throughout the case. The wound was packed open, soft bandage applied. The patient was transferred from OR to PACU with all vital signs stable. The patient will be monitored after a vascular attempt. Overall prognosis is poor given the history of smoking and diabetes. I will see the patient within 1-2 days. Masoud Gates, DPM Medications and IVs Inpatient Medications Acetaminophen (Tylenol) 650 mg Q4H PRN PO temp > 101 Last administered on at 22:22; Start 01/09/18 at 20:45 Amlodipine Besylate (Norvasc) 5 mg DAILY PO Last administered on 01/10/18at 09: 05; Start 01/08/18 at 09:00 Ampicillin Sodium/ Sulbactam Sodium 3 gm/Sodium Chloride 100 ml @ 200 mls/hr Q6H IV Last administered on 01/11/18at 04:35; Start 01/08/18 at 17:00 Aspirin (Aspirin Chew) 324 mg ONCE ONCE CHEW Last administered on 01/04/18at 13 :33; Start 01/04/18 at 13:15; Stop 01/04/18 at 13:16; Status DC Aspirin (Ecotrin Ec) 81 mg DAILY PO Last administered on 01/10/18at 09:04; Start 01/06/18 at 09:00 Atorvastatin Calcium (Lipitor) 40 mg HS PO Last administered on 01/10/18at 20:59 ; Start 01/05/18 at 21:00 Bisacodyl (Dulcolax Supp) 10 mg DAILY PRN RECTAL SEVERE CONSITIPATION; Start at 14:30 Cefepime HCl 2000 mg/Sodium Chloride 100 ml @ 200 mls/hr Q12H IV Last administered on 01/05/18at 06:04; Start 01/04/18 at 18:00; Stop 01/05/18 at 12:37 ; Status DC Chlorhexidine Gluconate (Chlorhexidine 2% Cloth) 3 pack LEAD MECHANICAL ENGINEER PRN TOPICAL SEE LABEL COMMENTS; Start 01/05/18 at 18:45; Stop 01/08/18 at 18:44; Status DC Clonidine (Catapres) 0.1 mg Q4H PRN PO SBP>160, DBP>90 Last administered on at 20:59; Start 01/07/18 at 15:45 Clopidogrel Bisulfate (Plavix) 75 mg DAILY PO Last administered on 01/10/18at 09 :05; Start 01/08/18 at 09:00 Dextrose (D25w Inj) 10 ml ONCE ONCE IV PUSH Last administered on 01/04/18at 14: 28; Start 01/04/18 at 13:45; Stop 01/04/18 at 13:46; Status DC Dextrose (D50w (Vial) Inj) 50 ml UNSCH PRN IV PUSH HYPOGLYCEMIA-SEE COMMENTS; Start 01/04/18 at 17:45; Stop 01/06/18 at 10:41; Status DC Gabapentin (Neurontin) 300 mg TID PO Last administered on 01/10/18at 17:11; Start 01/04/18 at 18:00 Glucagon (Glucagon Inj) 1 mg UNSCH PRN OTHER HYPOGLYCEMIA-SEE COMMENTS; Start 01/04/18 at 17:45; Stop 01/06/18 at 10:41; Status DC Insulin Aspart (NovoLOG SUPPLEMENTAL SCALE) 1 ACHS SLIDING SCALE SQ Last administered on 01/10/18at 17:13; Start 01/06/18 at 12:00 Insulin Aspart Prota 70%/Aspart 30% (NovoLOG MIX 70/ 30 INJ) 30 units BID@0800, 1700 SQ Last administered on 01/10/18at 17:13; Start 01/06/18 at 17:00 Iron Sucrose 200 mg/Sodium Chloride 110 ml @ 110 mls/hr DAILY IV Last administered on 01/07/18at 12:23; Start 01/05/18 at 15:00; Stop 01/07/18 at 09:59 ; Status DC Lactated Ringer's 1,000 ml @ 30 mls/hr Q24H PRN IV SEE LABEL COMMENTS; Start at 18:45; Stop 01/08/18 at 18:44; Status DC Lactulose (Lactulose Liq) 30 ml DAILY PRN PO SEVERE CONSITIPATION; Start at 14:30 Lisinopril (Prinivil) 10 mg DAILY PO Last administered on 01/10/18at 09:05; Start 01/05/18 at 09:00 Magnesium Hydroxide (Milk Of Magnesia Liq) 30 ml Q12H PRN PO Mild constipation ; Start 01/08/18 at 14:30 Miscellaneous Information ([facility] Nursing Information) ALL NURSING DEPARTME... UNSCH PRN .XX SEE LABEL COMMENTS; Start 01/05/18 at 20:30; Stop 01/06/18 at 20: 29; Status DC Miscellaneous Information ([facility] Pharmacy Ordered Lab Info) SPECIFIC LAB TO BE ROSALEE... ONCE ONCE .XX Last administered on 01/06/18at 12:45; Start 01/06/18 at 12:45; Stop 01/06/18 at 12:46; Status DC Morphine Sulfate (Morphine Inj) 4 mg Q4H PRN IV PUSH BREAKTHROUGH PAIN Last administered on 01/10/18at 17:12; Start 01/05/18 at 10:15 Naloxone HCl (Narcan Inj) 0.4 mg UNSCH PRN IV PUSH SEE LABEL COMMENTS; Start at 11:00 Ondansetron HCl (Zofran Odt) 4 mg ONCE ONCE PO Last administered on at 13:33; Start 01/04/18 at 12:15; Stop 01/04/18 at 12:16; Status DC Oxycodone/ Acetaminophen (Percocet 7.5-325 Mg) 1 tab Q6H PRN PO PAIN SCALE 6 TO 10 Last administered on 01/10/18at 09:06; Start 01/04/18 at 18:00; Stop at 11:02; Status DC Oxycodone/ Acetaminophen (Percocet 5-325 Mg) 1 tab Q6HR PRN PO PAIN SCALE 3 TO 5; Start 01/04/18 at 18:00 Oxycodone/ Acetaminophen (Percocet 10-325 Mg) 1 tab Q6H PRN PO PAIN SCALE 6 TO 10 Last administered on 01/11/18at 04:35; Start 01/10/18 at 11:00 Pantoprazole Sodium (Protonix) 20 mg DAILY PO Last administered on 01/10/18at 09 :04; Start 01/05/18 at 09:00 Pharmacy Profile Note 0 ml @ 0 mls/hr UNSCH OTHER ; Start 01/04/18 at 18:00; Stop 01/07/18 at 14:48; Status DC Piperacillin Sod/ Tazobactam Sod 50 ml @ 100 mls/hr Q6H IV Last administered on 01/08/18at 14:55; Start 01/07/18 at 21:00; Stop 01/08/18 at 15:48; Status DC Polyethylene Glycol (Miralax) 17 gm DAILY PO ; Start 01/09/18 at 09:00 Povidone Iodine (Betadine 5% Antisepsis Kit) 1 applic LEAD MECHANICAL ENGINEER PRN EACH NARE SEE LABEL COMMENTS; Start 01/05/18 at 18:45; Stop 01/08/18 at 18:44; Status DC Senna/Docusate Sodium (Trixie-Colace) 1 tab BID PO Last administered on at 22:20; Start 01/08/18 at 15:00 Sennosides (Senokot) 17.2 mg Q12H PRN PO Moderate constipation; Start 01/08/18 at 14:30 Sodium Chloride 500 ml @ 30 mls/hr [id number] PRN IV SEE LABEL COMMENTS; Start at 18:45; Stop 01/08/18 at 18:44; Status DC Vancomycin HCl 1000 mg/Sodium Chloride 250 ml @ 250 mls/hr Q12H IV ; Start at 06:00; Stop 01/05/18 at 06:00; Status DC Vancomycin HCl 1250 mg/Sodium Chloride 262.5 ml @ 250 mls/hr Q12H IV Last administered on 01/06/18at 13:24; Start 01/05/18 at 01:00; Stop 01/06/18 at 15:21 ; Status DC Vancomycin HCl 1500 mg/Sodium Chloride 515 ml @ 250 mls/hr Q18H IV Last administered on 01/07/18at 05:20; Start 01/07/18 at 06:00; Stop 01/07/18 at 14:48 ; Status DC Zolpidem Tartrate (Ambien) 5 mg ONCE ONCE PO Last administered on 01/04/18at 22 :40; Start 01/04/18 at 22:15; Stop 01/04/18 at 22:16; Status DC A/P Problem List: (1) Leukocytosis ICD Code: D72.829 - Elevated white blood cell count, unspecified Status: Acute (2) Peripheral vascular disease ICD Code: I73.9 - Peripheral vascular disease, unspecified Status: Acute (3) Diabetic foot infection ICD Code: E11.628 - Type 2 diabetes mellitus with other skin complications; L08.9 - Local infection of the skin and subcutaneous tissue, unspecified Status: Acute (4) Renal insufficiency ICD Code: N28.9 - Disorder of kidney and ureter, unspecified (5) Hypertension ICD Code: I10 - Essential (primary) hypertension (6) DVT (deep venous thrombosis) ICD Code: I82.409 - Acute embolism and thrombosis of unspecified deep veins of unspecified lower extremity Assessment and Plan A/P Sepsis secondary to diabetic right foot infection with dry gangrene 4th digit with possible abscess on exam and possible underlying OM -s/p right fourth toe amputation and I/D of the right foot -Blood cultures negative. -wound culture with MSSA and Enterococcus Feacalis -on Unasyn per ID. Suspected dry gangrene Peripheral vascular disease -S/P angioplasty January [address] Cullen -for right lower extremity distal bypass tomorrow- per vascular surgery. -started on Lipitor -Baby aspirin/ plavix and statin Acute kidney injury SUSPECT CHRONIC KIDNEY DISEASE STAGE 2 TO 3 - improving w/ IVF -will monitor. Microcytic anemia- chronic disease? -will check the stool for blood -monitor H/H Diabetes type 2 -Hold metformin for now, sliding scale with Accu-Chek -resumed insulin - Malignant medical noncompliance due to lack of insurance and uncontrolled diabetes Diabetic neuropathy -Continue on gabapentin Hypertension. -Continue lisinopril -added Norvasc -will monitor. No pharmacological anticoagulation at this time given impending surgery, SCD on left lower extremity only given pathology on right lower external Discharge Planning pending Vascular intervention. Problem Qualifiers (1) Leukocytosis: Qualified Codes: D72.829 - Elevated white blood cell count, unspecified Katrina Ruiz MD January 11, 2018 08:12
[2018-01-11] MEDS: DOCUSATE SODIUM 50 MG/SENNA 8.6 MG TAB PO SCH ×2 (09:00→21:00)
[2018-01-11] MEDS: POLYETHYLENE GLYCOL 17 GM PKG PO SCH (09:00)
[2018-01-11] MEDS: GABAPENTIN 300 MG CAP PO SCH ×3 (09:07→18:34)
[2018-01-11] MEDS: LISINOPRIL 10 MG TAB PO SCH (09:07)
[2018-01-11] MEDS: amLODIPine BESYLATE 5 MG TAB PO SCH (09:07)
[2018-01-11] MEDS: ASPIRIN EC 81 MG TABEC PO SCH (09:07)
[2018-01-11] MEDS: CLOPIDOGREL 75 MG TAB PO SCH (09:07)
[2018-01-11] MEDS: PANTOPRAZOLE SOD 20 MG DELAYED RELEASE TAB PO SCH (09:07)
--- NOTE | 2018-01-11 09:25 | PD.VS.PN ---
Pre-operative Note Pre-operative diagnosis: R LE peripheral vascular occlusive disease SFA and popliteal stenosis, successful LOOM OVERHAULER (POD 5) BK popliteal occlusion with PT reconstitution Planned procedure: R LE Distal bypass Interval History: Mr. Garibay is a 42/M with a PMH of DM, GOUT and HTN. Pt w/ R LE ischemia/ tissue loss for 2W Pt w/ non palpable distal pulses Labs: Laboratory Results Test 01/04/18 12:35 01/11/18 03:40 Prothromb Time International Ratio 1.0 RATIO Anion Gap 9 MEQ/L (5-15) Blood Urea Nitrogen 14 MG/DL (7-18) Creatinine 1.19 MG/DL (0.60-1.30) Random Glucose 59 MG/DL (74-106) Total Protein 6.8 GM/DL (6.4-8.2) Albumin 1.7 GM/DL (3.4-5.0) Calcium Level 8.0 MG/DL (8.5-10.1) Phosphorus Level 3.5 MG/DL (2.5-4.9) Magnesium Level 2.0 MG/DL (1.5-2.5) Alkaline Phosphatase 270 U/L (45-117) Aspartate Amino Transf (AST/SGOT) 24 U/L (15-37) Alanine Aminotransferase (ALT/SGPT) 22 U/L (12-78) Total Bilirubin 0.2 MG/DL (0.2-1.0) Sodium Level 141 MEQ/L (136-145) Potassium Level 4.1 MEQ/L (3.5-5.1) Chloride Level 110 MEQ/L (98-107) Carbon Dioxide Level 22.1 MEQ/L (21.0-32.0) Hematocrit 24.5 % (39.0-51.0) Hemoglobin 8.0 GM/DL (13.0-17.0) Mean Corpuscular Hemoglobin 25.1 PG (27.0-34.0) Mean Corpuscular Hemoglobin Concent 32.6 % (32.0-36.0) Mean Corpuscular Volume 77.0 FL (80.0-100.0) Mean Platelet Volume 7.6 FL (7.0-11.0) Platelet Count 450 TH/MM3 (150-450) Red Blood Count 3.18 MIL/MM3 (4.50-5.90) Red Cell Distribution Width 14.7 % (11.6-17.2) White Blood Count 14.1 TH/MM3 (4.0-11.0) Imaging: Last Impressions Upper Extremity Ultrasound 01/09/18 0000 Signed Impressions: Service Date/Time: Tuesday, January 09, 2018 13:07 - CONCLUSION: 1. Mixture of occlusive and nonocclusive thrombus throughout the cephalic vein extending to the mid upper arm. Giorgi Rider MD Lower Extremity Ultrasound 01/06/18 0000 Signed Impressions: Service Date/Time: Saturday, January 06, 2018 17:05 - CONCLUSION: No DVT. Gibson Isaac MD Foot MRI 01/06/18 0000 Signed Impressions: Service Date/Time: Saturday, January 06, 2018 15:27 - CONCLUSION: Generalized edema with minimal enhancement in the operative bed, nonspecific. No evidence rales myelitis. Antonio Cole MD FACR Chest X-Ray 01/05/18 0600 Signed Impressions: Service Date/Time: Friday, January 05, 2018 09:18 - CONCLUSION: 1. No acute cardiopulmonary findings. Fausto Cole MD Lower Extremity CT 01/04/18 0000 Signed Impressions: Service Date/Time: Thursday, January 04, 2018 17:37 - CONCLUSION: 1. Soft tissue ulcer in the lateral proximal forefoot with subcutaneous air extending to the base of the fourth digit. No definite osseous abnormality to suggest osteomyelitis. Consider MRI examination if there is continued clinical concern. Giorgi Rider MD Foot X-Ray 01/04/18 0000 Signed Impressions: Service Date/Time: Thursday, January 04, 2018 12:43 - CONCLUSION: Negative for acute process. Antonio Cole MD FACR Orders: NPO after midnight Post-operative destination: [facility] Operative site marked: Yes Consent: Informed consent has been obtained from Shay Garibay Jr. I have explained the procedure in detail and discussed the risks, benefits, and potential complications. All questions have been answered. Kasey Caldwell January 11, 2018 09:25
[2018-01-11] MEDS: cloNIDine HCL 0.1 MG TAB PO PRN (12:20)
[2018-01-11] MEDS: SODIUM CHLOR 0.9% 1000 ML INJ 1,000 ML IV SCH (16:52)
[2018-01-11] MEDS: ATORVASTATIN 40 MG TAB PO SCH (21:26)
[2018-01-12 00:13] VITALS: BP 140/72; PULSE 79; RESP 20; TEMP 99.7; O2SAT 99
[2018-01-12] MEDS ORDERED: LACTATED RINGER'S 1000 ML IV PRN (02:30)
[2018-01-12] MEDS ORDERED: POVIDONE IODINE 5% (ANTISEPSIS KIT) 4 APPLICATIONS EACH NARE PRN (02:30)
[2018-01-12] MEDS ORDERED: SODIUM CHLORID 0.9% 500 ML IV PRN (02:30)
[2018-01-12] MEDS ORDERED: CHLORHEXIDINE GLUCONATE 2 % 1 PACK (2 CLOTHS) TOPICAL PRN (02:30)
[2018-01-12 04:40] VITALS: BP 132/73; PULSE 71; RESP 20; TEMP 99.8; O2SAT 97
[2018-01-12] MEDS: AMPICILLIN-SULBACTAM INJ 3 GM in SODIUM CHLORIDE 0.9% INJ 100 ML IV SCH ×3 (05:08→23:12)
[2018-01-12] MEDS: INSULIN ASPART SUPPLEMENTAL SCALE SQ SCH ×3 (08:00→20:30)
[2018-01-12] MEDS: INSULIN ASPAR PROT 70/30 1,000 UNITS/10 ML VIAL SQ SCH (08:00)
[2018-01-12 08:01] LABS: INTERNATIONAL NORMALIZED RATIO 1.1 RATIO; PROTHROMBIN TIME - PATIENT 10.7 SEC (9.8-11.6)
[2018-01-12 08:05] VITALS: BP 155/74; PULSE 99; RESP 18; TEMP 98.8; O2SAT 95
--- NOTE | 2018-01-12 08:41 | HHI.PR ---
Subjective Remarks in no acute distress. pain is controlled. Tmax 100.1. no other complaints. awaiting vascular intervention today. Objective Vitals Vital Signs Date Time Temp Pulse Resp B/P (MAP) Pulse Ox O2 Delivery O2 Flow Rate FiO2 01/12/18 04:40 99.8 71 20 132/73 (92) 97 01/12/18 00:13 99.7 79 20 140/72 (94) 99 01/11/18 21:20 Room Air 01/11/18 20:08 99.5 79 20 141/84 (103) 99 01/11/18 17:25 96 21 01/11/18 16:15 100.1 95 18 178/82 (114) 96 01/11/18 12:10 98.6 104 20 182/88 (119) 96 I/O 01/11/18 01/11/18 01/11/18 01/12/18 01/12/18 01/12/18 07:00 15:00 23:00 07:00 15:00 23:00 Intake Total 1557 ml 100 ml 1303 ml 1462 ml Output Total 1050 ml 500 ml 350 ml Balance 507 ml 100 ml 803 ml 1112 ml Intake Oral 820 ml 840 ml 480 ml IV Total 737 ml 100 ml 463 ml 982 ml Output Urine Total 1050 ml 500 ml 350 ml # Bowel Movements 1 1 0 Result Diagram: 01/11/18 0340 01/11/18 0340 Imaging Last Impressions Upper Extremity Ultrasound 01/09/18 0000 Signed Impressions: Service Date/Time: Tuesday, January 09, 2018 13:07 - CONCLUSION: 1. Mixture of occlusive and nonocclusive thrombus throughout the cephalic vein extending to the mid upper arm. Giorgi Rider MD Lower Extremity Ultrasound 01/06/18 0000 Signed Impressions: Service Date/Time: Saturday, January 06, 2018 17:05 - CONCLUSION: No DVT. Gibson Isaac MD Foot MRI 01/06/18 0000 Signed Impressions: Service Date/Time: Saturday, January 06, 2018 15:27 - CONCLUSION: Generalized edema with minimal enhancement in the operative bed, nonspecific. No evidence rales myelitis. Antonio Cole MD FACR Chest X-Ray 01/05/18 0600 Signed Impressions: Service Date/Time: Friday, January 05, 2018 09:18 - CONCLUSION: 1. No acute cardiopulmonary findings. Fausto Cole MD Lower Extremity CT 01/04/18 0000 Signed Impressions: Service Date/Time: Thursday, January 04, 2018 17:37 - CONCLUSION: 1. Soft tissue ulcer in the lateral proximal forefoot with subcutaneous air extending to the base of the fourth digit. No definite osseous abnormality to suggest osteomyelitis. Consider MRI examination if there is continued clinical concern. Giorgi Rider MD Foot X-Ray 01/04/18 0000 Signed Impressions: Service Date/Time: Thursday, January 04, 2018 12:43 - CONCLUSION: Negative for acute process. Antonio Cole MD FACR Objective Remarks GENERAL: This is a well-nourished, well-developed patient, in no apparent distress. CARDIOVASCULAR: Regular rate and regular rhythm without murmurs, gallops, or rubs. RESPIRATORY: Clear to auscultation. Breath sounds equal bilaterally. No wheezes , rales, or rhonchi. GASTROINTESTINAL: Abdomen soft, non-tender, nondistended. Normal, active bowel sounds MUSCULOSKELETAL: right foot covered with clean dressing. NEURO: Alert & Oriented x4 to person, place, time, situation. Moves all ext x4 Procedures ANGIOGRAM - Moe Cullen MD DATE OF OPERATION: PREOPERATIVE DIAGNOSIS: Right lower extremity tissue loss, peripheral vascular disease. POSTOPERATIVE DIAGNOSIS: Right lower extremity tissue loss, peripheral vascular disease. PROCEDURE PERFORMED: 1. Aortogram with right lower extremity angiogram. 2. Right SFA and popliteal artery angioplasty with 5 mm balloon. 3. Left common femoral artery Angio-Seal. OPERATING SURGEON: Moe Cullen MD ANESTHESIA: Local with sedation. INDICATIONS: Mr. Garibay is a 42-year-old gentleman with right lower extremity tissue loss. He is taken to the operating room for angiographic evaluation and potential treatment. There was no prior catheter-based imaging available for my review. DESCRIPTION OF PROCEDURE: Informed consent was obtained from the patient. He was taken to the operating room and placed supine on the operating table. An appropriate timeout was taken to ensure the patient's identity, the operative site and planned procedure. The administration of antibiotics was not necessary as this is a clean procedure without the planned implantation of any foreign object. Everyone in the room agreed with timeout and we proceeded. His bilateral groins prepped and draped. Left groin was anesthetized with 1% lidocaine. A 21-gauge micropuncture needle was used to access the left common femoral artery, was exchanged using Seldinger technique through micropuncture sheath, which a 0.035 Glidewire was introduced. Micropuncture sheath was exchanged for a 4-Brazilian sheath. A VCF catheter was placed over the wire and through the sheath and aortogram, pelvic arteriogram was obtained. The Glidewire was reintroduced and navigated down to the right common femoral artery and the VCF catheter was advanced over this and a right lower extremity arteriogram was obtained. The patient was systemically heparinized with 5000 units of IV Heparin. A 0.035 Ceballos wire was introduced down to the mid SFA and the VCF catheter and 4-Brazilian sheath were removed and a 6-Brazilian 55 cm Dimitry sheath was introduced. A CXI catheter was placed over the wire into the sheath and the wire was exchanged for a SETTLEMENT CLERK wire. Using the SETTLEMENT CLERK wire and CXI catheter we were able to navigate through the SFA lesion and the popliteal lesion. Both of these were angioplastied with a 5 x 200 and 5 x 80 balloon, respectively. The completion angiogram showed excellent result on recoil extravasation. We then did advance the catheter down to the popliteal artery. An angiogram was obtained. The wire, catheter and sheath were removed and the groin was closed with Angio-Seal. There were no complications. I was present and scrubbed for the entire procedure. INTERPRETATION OF IMAGES: The patient has a patent terminal aorta, common iliac arteries, hypogastric arteries and external iliac arteries, none of which have any hemodynamically significant stenoses. The right common femoral artery and profunda are patent without any hemodynamically significant stenosis. The proximal SFA is patent. The mid SFA has high-grade diffuse stenosis that was successfully angioplastied and the popliteal artery had a similar high-grade diffuse stenosis that was successfully angioplastied. The below knee popliteal artery occludes and there was no posterior tibial artery or peroneal artery proximally. The perigeniculate collaterals give rise to the posterior tibial artery in the mid to distal calf. , 09:14 AM Masoud Gates DPM DATE OF OPERATION: 01/05/2018 PREOPERATIVE DIAGNOSIS: Right fourth digit gangrene, abscess, diabetic foot infection. POSTOPERATIVE DIAGNOSIS: Right fourth digit gangrene, abscess, diabetic foot infection. PROCEDURE PERFORMED: Right fourth digit amputation, incision and drainage deep, right foot. INTRAOPERATIVE FINDINGS: Minimal bleeding. Foul odor at level of amputation site. S SPECIMENS: Fourth digit for pathology. Deep culture at amputation site for micro. ESTIMATED BLOOD LOSS: Less than 30 mL ANESTHESIA: General. DRAINS: None. TOURNIQUET: None. DISPOSITION: Returned to floor for vascular intervention and monitor of foot. May need wound VAC versus repetitive debridements versus amputation at a later date. JUSTIFICATION FOR PROCEDURE: A 42-year-old diabetic male with a history of smoking, was admitted. CT showed gas within the tissue at the base of the fourth digit. The patient was planned for vascular intervention; however, we wished to eradicate infection or at least debulk the infection first. The patient was educated on risks and benefits, need for more surgery, loss of limb. No guarantees were given or implied regarding the outcome. PROCEDURE IN DETAIL: Under mild sedation, the patient was brought into the operating room, placed on the operating table in supine position. Following the induction of general anesthesia, the patient's right lower extremity was scrubbed, prepped and draped in the usual aseptic fashion. The foot was elevated and examined. There was noted to be a necrotic, delayed capillary fill time, a putrid-smelling right fourth digit. A fishmouth mouth type incision was made disarticulating the digit down to the level of the joint. There were gas bubbles within the tissue. There was purulent drainage. There was a full-thickness eschar of the dorsum of the foot that had an odor. This was sharply unroofed down to the tendon sheath with exposed fourth metatarsal. There was no obvious signs of tracking deep within the plantar aspect of the foot or along the dorsal aspect of the foot. This was flushed with copious amounts of normal saline. Minimal Bovie and ligation was needed throughout the case. The wound was packed open, soft bandage applied. The patient was transferred from OR to PACU with all vital signs stable. The patient will be monitored after a vascular attempt. Overall prognosis is poor given the history of smoking and diabetes. I will see the patient within 1-2 days. Masoud Gates, DPM Medications and IVs Inpatient Medications Acetaminophen (Tylenol) 650 mg Q4H PRN PO temp > 101 Last administered on at 22:22; Start 01/09/18 at 20:45 Amlodipine Besylate (Norvasc) 5 mg DAILY PO Last administered on 01/11/18at 09: 07; Start 01/08/18 at 09:00 Ampicillin Sodium/ Sulbactam Sodium 3 gm/Sodium Chloride 100 ml @ 200 mls/hr Q6H IV Last administered on 01/12/18at 05:08; Start 01/08/18 at 17:00 Aspirin (Aspirin Chew) 324 mg ONCE ONCE CHEW Last administered on 01/04/18at 13 :33; Start 01/04/18 at 13:15; Stop 01/04/18 at 13:16; Status DC Aspirin (Ecotrin Ec) 81 mg DAILY PO Last administered on 01/11/18at 09:07; Start 01/06/18 at 09:00 Atorvastatin Calcium (Lipitor) 40 mg HS PO Last administered on 01/11/18at 21:26 ; Start 01/05/18 at 21:00 Bisacodyl (Dulcolax Supp) 10 mg DAILY PRN RECTAL SEVERE CONSITIPATION; Start at 14:30 Cefepime HCl 2000 mg/Sodium Chloride 100 ml @ 200 mls/hr Q12H IV Last administered on 01/05/18at 06:04; Start 01/04/18 at 18:00; Stop 01/05/18 at 12:37 ; Status DC Chlorhexidine Gluconate (Chlorhexidine 2% Cloth) 3 pack SUGAR DRIER PRN TOPICAL SEE LABEL COMMENTS; Start 01/12/18 at 02:30; Stop 01/15/18 at 02:29 Clonidine (Catapres) 0.1 mg Q4H PRN PO SBP>160, DBP>90 Last administered on at 12:20; Start 01/07/18 at 15:45 Clopidogrel Bisulfate (Plavix) 75 mg DAILY PO Last administered on 01/11/18at 09 :07; Start 01/08/18 at 09:00 Dextrose (D25w Inj) 10 ml ONCE ONCE IV PUSH Last administered on 01/04/18at 14: 28; Start 01/04/18 at 13:45; Stop 01/04/18 at 13:46; Status DC Dextrose (D50w (Vial) Inj) 50 ml UNSCH PRN IV PUSH HYPOGLYCEMIA-SEE COMMENTS; Start 01/04/18 at 17:45; Stop 01/06/18 at 10:41; Status DC Gabapentin (Neurontin) 300 mg TID PO Last administered on 01/11/18at 18:34; Start 01/04/18 at 18:00 Glucagon (Glucagon Inj) 1 mg UNSCH PRN OTHER HYPOGLYCEMIA-SEE COMMENTS; Start 01/04/18 at 17:45; Stop 01/06/18 at 10:41; Status DC Insulin Aspart (NovoLOG SUPPLEMENTAL SCALE) 1 ACHS SLIDING SCALE SQ Last administered on 01/11/18at 17:00; Start 01/06/18 at 12:00 Insulin Aspart Prota 70%/Aspart 30% (NovoLOG MIX 70/ 30 INJ) 30 units BID@0800, 1700 SQ Last administered on 01/11/18at 18:34; Start 01/06/18 at 17:00 Iron Sucrose 200 mg/Sodium Chloride 110 ml @ 110 mls/hr DAILY IV Last administered on 01/07/18at 12:23; Start 01/05/18 at 15:00; Stop 01/07/18 at 09:59 ; Status DC Lactated Ringer's 1,000 ml @ 30 mls/hr Q24H PRN IV SEE LABEL COMMENTS; Start at 02:30; Stop 01/15/18 at 02:29 Lactulose (Lactulose Liq) 30 ml DAILY PRN PO SEVERE CONSITIPATION; Start at 14:30 Lisinopril (Prinivil) 10 mg DAILY PO Last administered on 01/11/18at 09:07; Start 01/05/18 at 09:00 Magnesium Hydroxide (Milk Of Magnesia Liq) 30 ml Q12H PRN PO Mild constipation ; Start 01/08/18 at 14:30 Miscellaneous Information ([facility] Nursing Information) ALL NURSING DEPARTME... UNSCH PRN .XX SEE LABEL COMMENTS; Start 01/05/18 at 20:30; Stop 01/06/18 at 20: 29; Status DC Miscellaneous Information ([facility] Ordered Lab Info) SPECIFIC LAB TO BE ROSALEE... ONCE ONCE .XX Last administered on 01/06/18at 12:45; Start 01/06/18 at 12:45; Stop 01/06/18 at 12:46; Status DC Morphine Sulfate (Morphine Inj) 4 mg Q4H PRN IV PUSH BREAKTHROUGH PAIN Last administered on 01/10/18at 17:12; Start 01/05/18 at 10:15 Naloxone HCl (Narcan Inj) 0.4 mg UNSCH PRN IV PUSH SEE LABEL COMMENTS; Start at 11:00 Ondansetron HCl (Zofran Odt) 4 mg ONCE ONCE PO Last administered on at 13:33; Start 01/04/18 at 12:15; Stop 01/04/18 at 12:16; Status DC Oxycodone/ Acetaminophen (Percocet 7.5-325 Mg) 1 tab Q6H PRN PO PAIN SCALE 6 TO 10 Last administered on 01/10/18at 09:06; Start 01/04/18 at 18:00; Stop at 11:02; Status DC Oxycodone/ Acetaminophen (Percocet 5-325 Mg) 1 tab Q6HR PRN PO PAIN SCALE 3 TO 5; Start 01/04/18 at 18:00 Oxycodone/ Acetaminophen (Percocet 10-325 Mg) 1 tab Q6H PRN PO PAIN SCALE 6 TO 10 Last administered on 01/11/18at 18:34; Start 01/10/18 at 11:00 Pantoprazole Sodium (Protonix) 20 mg DAILY PO Last administered on 01/11/18at 09 :07; Start 01/05/18 at 09:00 Pharmacy Profile Note 0 ml @ 0 mls/hr UNSCH OTHER ; Start 01/04/18 at 18:00; Stop 01/07/18 at 14:48; Status DC Piperacillin Sod/ Tazobactam Sod 50 ml @ 100 mls/hr Q6H IV Last administered on 01/08/18at 14:55; Start 01/07/18 at 21:00; Stop 01/08/18 at 15:48; Status DC Polyethylene Glycol (Miralax) 17 gm DAILY PO ; Start 01/09/18 at 09:00 Povidone Iodine (Betadine 5% Antisepsis Kit) 1 applic SUGAR DRIER PRN EACH NARE SEE LABEL COMMENTS; Start 01/12/18 at 02:30; Stop 01/15/18 at 02:29 Senna/Docusate Sodium (Trixie-Colace) 1 tab BID PO Last administered on at 22:20; Start 01/08/18 at 15:00 Sennosides (Senokot) 17.2 mg Q12H PRN PO Moderate constipation; Start 01/08/18 at 14:30 Sodium Chloride 500 ml @ 30 mls/hr [id number] PRN IV SEE LABEL COMMENTS; Start at 02:30; Stop 01/15/18 at 02:29 Vancomycin HCl 1000 mg/Sodium Chloride 250 ml @ 250 mls/hr Q12H IV ; Start at 06:00; Stop 01/05/18 at 06:00; Status DC Vancomycin HCl 1250 mg/Sodium Chloride 262.5 ml @ 250 mls/hr Q12H IV Last administered on 01/06/18at 13:24; Start 01/05/18 at 01:00; Stop 01/06/18 at 15:21 ; Status DC Vancomycin HCl 1500 mg/Sodium Chloride 515 ml @ 250 mls/hr Q18H IV Last administered on 01/07/18at 05:20; Start 01/07/18 at 06:00; Stop 01/07/18 at 14:48 ; Status DC Zolpidem Tartrate (Ambien) 5 mg ONCE ONCE PO Last administered on 01/04/18at 22 :40; Start 01/04/18 at 22:15; Stop 01/04/18 at 22:16; Status DC A/P Problem List: (1) Leukocytosis ICD Code: D72.829 - Elevated white blood cell count, unspecified Status: Acute (2) Peripheral vascular disease ICD Code: I73.9 - Peripheral vascular disease, unspecified Status: Acute (3) Diabetic foot infection ICD Code: E11.628 - Type 2 diabetes mellitus with other skin complications; L08.9 - Local infection of the skin and subcutaneous tissue, unspecified Status: Acute (4) Renal insufficiency ICD Code: N28.9 - Disorder of kidney and ureter, unspecified (5) Hypertension ICD Code: I10 - Essential (primary) hypertension (6) DVT (deep venous thrombosis) ICD Code: I82.409 - Acute embolism and thrombosis of unspecified deep veins of unspecified lower extremity Assessment and Plan A/P Sepsis secondary to diabetic right foot infection with dry gangrene 4th digit with possible abscess on exam and possible underlying OM -s/p right fourth toe amputation and I/D of the right foot -Blood cultures negative. -wound culture with MSSA and Enterococcus Faecalis -on Unasyn per ID. Suspected dry gangrene Peripheral vascular disease -S/P angioplasty January [address] Cullen -for right lower extremity distal bypass today- per vascular surgery. -started on Lipitor -Baby aspirin/ plavix and statin Acute kidney injury superimposed on CKD - improving w/ IVF -will monitor. Microcytic anemia- chronic disease? -will check the stool for blood-pending. -monitor H/H Diabetes type 2 -Hold metformin for now, sliding scale with Accu-Chek -resumed insulin - medical noncompliance due to lack of insurance and uncontrolled diabetes Diabetic neuropathy -Continue on gabapentin Hypertension. -Continue lisinopril -added Norvasc -will monitor. No pharmacological anticoagulation at this time given impending surgery, SCD on left lower extremity only given pathology on right lower external Discharge Planning pending Vascular intervention. Problem Qualifiers (1) Leukocytosis: Qualified Codes: D72.829 - Elevated white blood cell count, unspecified Katrina Ruiz MD January 12, 2018 08:41
[2018-01-12] MEDS: amLODIPine BESYLATE 5 MG TAB PO SCH (08:48)
[2018-01-12] MEDS: LISINOPRIL 10 MG TAB PO SCH ×2 (08:48→09:00)
[2018-01-12] MEDS: GABAPENTIN 300 MG CAP PO SCH (08:48)
[2018-01-12] MEDS: DOCUSATE SODIUM 50 MG/SENNA 8.6 MG TAB PO SCH ×2 (08:48→20:54)
[2018-01-12] MEDS: PANTOPRAZOLE SOD 20 MG DELAYED RELEASE TAB PO SCH (08:49)
[2018-01-12] MEDS: CLOPIDOGREL 75 MG TAB PO SCH (08:49)
[2018-01-12] MEDS: POLYETHYLENE GLYCOL 17 GM PKG PO SCH (09:00)
[2018-01-12] MEDS: SODIUM CHLOR 0.9% 1000 ML INJ 1,000 ML IV SCH ×2 (09:58→23:12)
[2018-01-12] MEDS ORDERED: ESMOLOL HCL 100 MG/10 ML VIAL IV ONE (12:00)
[2018-01-12] MEDS ORDERED: LIDOCAINE HCL 1% PF 5 ML SYRINGE OTHER ONE (12:00)
[2018-01-12] MEDS ORDERED: ROCURONIUM INJ 50 MG/5 ML SYRINGE IV PUSH ONE (12:00)
[2018-01-12] MEDS ORDERED: PROPOFOL 200 MG/20 ML AMP IV ONE (12:00)
[2018-01-12] MEDS ORDERED: PHENYLEPH/NS 1000 MCG/10 ML SYR IV ONE (12:00)
[2018-01-12] MEDS ORDERED: ONDANSETRON HCL 4 MG/2 ML VIAL IV ONE (12:00)
[2018-01-12] MEDS ORDERED: ePHEDrine/NS 25 MG/5 ML SYRINGE IV ONE (12:00)
[2018-01-12] MEDS ORDERED: LABETALOL HCL 100 MG/20 ML VIAL IV ONE (12:00)
[2018-01-12] MEDS ORDERED: SUCCINYLCHOLINE CHLORIDE 100 MG/5 ML SYRINGE IV PUSH ONE (12:00)
[2018-01-12] MEDS ORDERED: PROTAMINE SULFATE 50 MG/5 ML VIAL ONE (12:22)
[2018-01-12] MEDS ORDERED: HEPARIN SODIUM - IV 10,000 UNITS/10 ML VIAL ONE ×2 (12:22→13:46)
[2018-01-12] MEDS ORDERED: BUPIVACAINE HCL PF 0.5% 10 ML VIAL ONE (12:22)
[2018-01-12] MEDS ORDERED: HEPARIN-NS/PF INJ 500 ML ONE (12:23)
[2018-01-12] MEDS ORDERED: THROMBIN (TOPICAL) 20,000 UNIT SPRAY KIT ONE (12:23)
[2018-01-12] MEDS ORDERED: VANCOMYCIN HCL 1000 MG VIAL ONE (12:23)
[2018-01-12] MEDS ORDERED: ACETAMINOPHEN 1000 MG/100 ML 100 ML IV ONE (15:19)
--- NOTE | 2018-01-12 16:17 | HHI.PR ---
cc: Moe Cullen MD Immediate Post Op Note Procedure Date: January 12, 2018 Pre Op Diagnosis: PAD, R LE with tissue loss Post Op Diagnosis: PAD, R LE with tissue loss Surgeon: Moe Cullen Electric Mule Operator(s): Moe Zambrano Procedure: 1. R AK pop to PT bypass with cryo 2. R PT endarterectomy with patch angioplasty Findings: very diseased and inflamed tibial artery + PT signal at end of case very edematous foot Complications: none Specimen(s) removed: none Estimated blood loss: 100mL Anesthesia: General Drains: None Fluids: 2800mL IVF Urinary Output (mLs): 400 Patient to: PACU Patient Condition: Good Implant/Devices: SEE IMPLANT LOG (if applicable) Date/Time of Procedure: SEE SURGICAL CARE RECORD Moe Cullen MD January 12, 2018 16:17
[2018-01-12] MEDS ORDERED: MIDAZOLAM HCL 2 MG/2 ML VIAL ONE (16:43)
--- NOTE | 2018-01-12 17:33 | MP ---
cc: Moe Cullen MD, Robert J MD DATE OF OPERATION: 01/12/2018 PREOPERATIVE DIAGNOSIS: Right lower extremity ischemia, peripheral arterial disease. POSTOPERATIVE DIAGNOSIS: Right lower extremity ischemia, peripheral arterial disease. PROCEDURE: 1. Right above-knee popliteal artery to posterior tibial artery bypass with cryopreserved vein. 2. Endarterectomy patch angioplasty of the posterior tibial artery. OPERATING SURGEON: Moe Cullen MD ANESTHESIA: General. INDICATIONS FOR PROCEDURE: Mr. Garibay is a young man with severe peripheral arterial occlusive disease and the right lower extremity tissue loss. He was taken to the operating room for a distal bypass. Intraoperatively, his saphenous vein was noted to be unusable and the cryopreserved vein was selected. PROCEDURE IN DETAIL: Informed consent was obtained from patient. He was taken to the operating room and placed supine on the operating table. An appropriate timeout was taken to ensure the patient's identity, operative and planned procedure. The administration of 1 gram of vancomycin was initiated prior to skin incision and will be discontinued after a single preoperative dose. Vancomycin was chosen because of the patient's preoperative length of stay exceeding 48 hours. Everyone in the room agreed with timeout and we proceeded. He was prepped from his nipples to his toes and incision was made in the patient's distal thigh, carried down to subcutaneous tissue with electrocautery. The muscle was divided and retracted posteriorly and the above-knee popliteal artery was identified and dissected free for several centimeters. A separate incision was made just cephalad to the medial malleolus in the distal aspect of the right leg and carried down to subcutaneous tissue with electrocautery. There was significant edema encountered and the posterior tibial artery was identified and dissected free for several centimeters. A tunnel was then created between these two and the patient was systemically heparinized. Proximal and distal control of the posterior tibial artery were obtained with profunda clamps and a longitudinal arteriotomy was made with an 11-blade and extended with Hendricks scissors. The artery was endarterectomized and a bovine pericardial patch was brought up on the field and sewn on with running 6-0 Prolene suture. At the completion of this, the clamps were released and the patch was noted to be hemostatic. Proximal and distal control of the above-knee popliteal artery was obtained with profunda clamps and a longitudinal arteriotomy was made with 11-blade and extended with Hendricks scissors. Cryopreserved vein was brought up on the field, flushed and prepared in standard manner and was spatulated and sewn end to side to the above-knee popliteal artery with a running 5-0 Prolene suture. At the completion, it was flushed and noted to be hemostatic. The clamps were released. The graft was distended nicely and was marked for orientation. It was passed through the tunnel and then proximal and distal control of the posterior tibial artery were obtained with a Leonard and profunda clamps respectively and a longitudinal patchotomy was made with an 11-blade and extended with Parker scissors. The graft was cut to an appropriate length, spatulated and sewn end to side to the middle of the patch with running 6-0 Prolene suture. At the completion, it was flushed and noted to be hemostatic. There was a Doppler signal in the posterior tibial artery at the foot. The wounds were made hemostatic. Heparin was reversed with protamine. The wounds were closed with 2-0 Polysorb, 3-0 Polysorb and the cephalad wound was closed with 4-0 Monocryl and the caudal wound was closed with 3-0 nylon. Sponge and needle counts were correct at the end of the case. I was present, scrubbed, and performed the entire procedure. MD AILIN Roberts/ , 05:13 PM , 05:31 PM
[2018-01-12] MEDS ORDERED: DO NOT ADM ANY ANTICOAGULANT DRUGS PRN (18:30)
[2018-01-12 20:00] VITALS: BP 180/96; PULSE 104; RESP 18; TEMP 98.5; O2SAT 92
[2018-01-12] MEDS: ATORVASTATIN 40 MG TAB PO SCH (20:48)
[2018-01-12] MEDS: HYDROmorphone HCL 2 MG TAB PO PRN (20:48)
[2018-01-12 23:12] VITALS: BP 156/76; PULSE 108; RESP 18; TEMP 99.7; O2SAT 95
[2018-01-12] MEDS: MORPHINE SULFATE 4 MG/ML INJ IV PUSH PRN (23:13)
[2018-01-13] VITALS (7 sets, daily range): BP systolic 110–170; BP diastolic 56–92; PULSE 94–106; RESP 16–18; TEMP 99.5–101.1; O2SAT 94–99
[2018-01-13] MEDS: HYDROmorphone HCL 2 MG TAB PO PRN ×4 (01:59→21:45)
[2018-01-13] MEDS: AMPICILLIN-SULBACTAM INJ 3 GM in SODIUM CHLORIDE 0.9% INJ 100 ML IV SCH ×4 (04:45→23:17)
[2018-01-13] MEDS: MORPHINE SULFATE 4 MG/ML INJ IV PUSH PRN (04:46)
[2018-01-13] MEDS: cloNIDine HCL 0.1 MG TAB PO PRN (04:46)
--- NOTE | 2018-01-13 08:18 | HHI.PR ---
Subjective Remarks in no acute distress. complaining of pain to the right lower extremity and pain and edema of the left arm. Tmax 101.1. no other complaints. Objective Vitals Vital Signs Date Time Temp Pulse Resp B/P (MAP) Pulse Ox O2 Delivery O2 Flow Rate FiO2 01/13/18 08:02 96 21 01/13/18 04:37 101.1 106 18 170/85 (113) 94 01/13/18 04:00 Room Air 01/13/18 03:09 18 01/13/18 00:00 Room Air 01/12/18 23:33 18 01/12/18 23:12 99.7 108 18 156/76 (102) 95 01/12/18 20:00 98.5 104 18 180/96 (124) 92 01/12/18 17:45 96 16 137/58 (84) 97 01/12/18 17:30 92 16 125/80 (95) 100 01/12/18 17:23 92 16 124/82 (96) 97 01/12/18 17:00 90 16 167/82 (110) 99 01/12/18 16:45 87 16 167/82 (110) 99 01/12/18 16:32 98.2 85 16 168/82 (110) 98 Nasal Cannula 2 01/12/18 10:56 21 I/O 01/12/18 01/12/18 01/12/18 01/13/18 01/13/18 01/13/18 06:59 14:59 22:59 06:59 14:59 22:59 Intake Total 1562 ml 2800 ml 1920 ml Output Total 350 ml 300 ml 775 ml 1300 ml Balance 1212 ml -300 ml 2025 ml 620 ml Intake Oral 480 ml 0 ml 720 ml IV Total 1082 ml 1200 ml Other 2800 ml Output Urine Total 350 ml 300 ml 675 ml 1300 ml Estimated Blood Loss 100 ml # Bowel Movements 0 0 0 Result Diagram: 01/11/18 0340 01/11/18 0340 Imaging Last Impressions Upper Extremity Ultrasound 01/09/18 0000 Signed Impressions: Service Date/Time: Tuesday, January 09, 2018 13:07 - CONCLUSION: 1. Mixture of occlusive and nonocclusive thrombus throughout the cephalic vein extending to the mid upper arm. Giorgi Rider MD Lower Extremity Ultrasound 01/06/18 0000 Signed Impressions: Service Date/Time: Saturday, January 06, 2018 17:05 - CONCLUSION: No DVT. Gibson Isaac MD Foot MRI 01/06/18 0000 Signed Impressions: Service Date/Time: Saturday, January 06, 2018 15:27 - CONCLUSION: Generalized edema with minimal enhancement in the operative bed, nonspecific. No evidence rales myelitis. Antonio Cole MD FACR Chest X-Ray 01/05/18 0600 Signed Impressions: Service Date/Time: Friday, January 05, 2018 09:18 - CONCLUSION: 1. No acute cardiopulmonary findings. Fausto Cole MD Lower Extremity CT 01/04/18 0000 Signed Impressions: Service Date/Time: Thursday, January 04, 2018 17:37 - CONCLUSION: 1. Soft tissue ulcer in the lateral proximal forefoot with subcutaneous air extending to the base of the fourth digit. No definite osseous abnormality to suggest osteomyelitis. Consider MRI examination if there is continued clinical concern. Giorgi Rider MD Foot X-Ray 01/04/18 0000 Signed Impressions: Service Date/Time: Thursday, January 04, 2018 12:43 - CONCLUSION: Negative for acute process. Antonio Cole MD FACR Objective Remarks GENERAL: This is a well-nourished, well-developed patient, in no apparent distress. CARDIOVASCULAR: Regular rate and regular rhythm without murmurs, gallops, or rubs. RESPIRATORY: Clear to auscultation. Breath sounds equal bilaterally. No wheezes , rales, or rhonchi. GASTROINTESTINAL: Abdomen soft, non-tender, nondistended. Normal, active bowel sounds MUSCULOSKELETAL: right foot covered with clean dressing. NEURO: Alert & Oriented x4 to person, place, time, situation. Moves all ext x4 Procedures ANGIOGRAM - Moe Cullen MD DATE OF OPERATION: PREOPERATIVE DIAGNOSIS: Right lower extremity tissue loss, peripheral vascular disease. POSTOPERATIVE DIAGNOSIS: Right lower extremity tissue loss, peripheral vascular disease. PROCEDURE PERFORMED: 1. Aortogram with right lower extremity angiogram. 2. Right SFA and popliteal artery angioplasty with 5 mm balloon. 3. Left common femoral artery Angio-Seal. OPERATING SURGEON: Moe Cullen MD ANESTHESIA: Local with sedation. INDICATIONS: Mr. Garibay is a 42-year-old gentleman with right lower extremity tissue loss. He is taken to the operating room for angiographic evaluation and potential treatment. There was no prior catheter-based imaging available for my review. DESCRIPTION OF PROCEDURE: Informed consent was obtained from the patient. He was taken to the operating room and placed supine on the operating table. An appropriate timeout was taken to ensure the patient's identity, the operative site and planned procedure. The administration of antibiotics was not necessary as this is a clean procedure without the planned implantation of any foreign object. Everyone in the room agreed with timeout and we proceeded. His bilateral groins prepped and draped. Left groin was anesthetized with 1% lidocaine. A 21-gauge micropuncture needle was used to access the left common femoral artery, was exchanged using Seldinger technique through micropuncture sheath, which a 0.035 Glidewire was introduced. Micropuncture sheath was exchanged for a 4-Kazakh sheath. A VCF catheter was placed over the wire and through the sheath and aortogram, pelvic arteriogram was obtained. The Glidewire was reintroduced and navigated down to the right common femoral artery and the VCF catheter was advanced over this and a right lower extremity arteriogram was obtained. The patient was systemically heparinized with 5000 units of IV Heparin. A 0.035 Ceballos wire was introduced down to the mid SFA and the VCF catheter and 4-Kazakh sheath were removed and a 6-Kazakh 55 cm Dimitry sheath was introduced. A CXI catheter was placed over the wire into the sheath and the wire was exchanged for a ICING MACHINE OPERATOR wire. Using the ICING MACHINE OPERATOR wire and CXI catheter we were able to navigate through the SFA lesion and the popliteal lesion. Both of these were angioplastied with a 5 x 200 and 5 x 80 balloon, respectively. The completion angiogram showed excellent result on recoil extravasation. We then did advance the catheter down to the popliteal artery. An angiogram was obtained. The wire, catheter and sheath were removed and the groin was closed with Angio-Seal. There were no complications. I was present and scrubbed for the entire procedure. INTERPRETATION OF IMAGES: The patient has a patent terminal aorta, common iliac arteries, hypogastric arteries and external iliac arteries, none of which have any hemodynamically significant stenoses. The right common femoral artery and profunda are patent without any hemodynamically significant stenosis. The proximal SFA is patent. The mid SFA has high-grade diffuse stenosis that was successfully angioplastied and the popliteal artery had a similar high-grade diffuse stenosis that was successfully angioplastied. The below knee popliteal artery occludes and there was no posterior tibial artery or peroneal artery proximally. The perigeniculate collaterals give rise to the posterior tibial artery in the mid to distal calf. , 09:14 AM Masoud Gates DPM DATE OF OPERATION: 01/05/2018 PREOPERATIVE DIAGNOSIS: Right fourth digit gangrene, abscess, diabetic foot infection. POSTOPERATIVE DIAGNOSIS: Right fourth digit gangrene, abscess, diabetic foot infection. PROCEDURE PERFORMED: Right fourth digit amputation, incision and drainage deep, right foot. INTRAOPERATIVE FINDINGS: Minimal bleeding. Foul odor at level of amputation site. S SPECIMENS: Fourth digit for pathology. Deep culture at amputation site for micro. ESTIMATED BLOOD LOSS: Less than 30 mL ANESTHESIA: General. DRAINS: None. TOURNIQUET: None. DISPOSITION: Returned to floor for vascular intervention and monitor of foot. May need wound VAC versus repetitive debridements versus amputation at a later date. JUSTIFICATION FOR PROCEDURE: A 42-year-old diabetic male with a history of smoking, was admitted. CT showed gas within the tissue at the base of the fourth digit. The patient was planned for vascular intervention; however, we wished to eradicate infection or at least debulk the infection first. The patient was educated on risks and benefits, need for more surgery, loss of limb. No guarantees were given or implied regarding the outcome. PROCEDURE IN DETAIL: Under mild sedation, the patient was brought into the operating room, placed on the operating table in supine position. Following the induction of general anesthesia, the patient's right lower extremity was scrubbed, prepped and draped in the usual aseptic fashion. The foot was elevated and examined. There was noted to be a necrotic, delayed capillary fill time, a putrid-smelling right fourth digit. A fishmouth mouth type incision was made disarticulating the digit down to the level of the joint. There were gas bubbles within the tissue. There was purulent drainage. There was a full-thickness eschar of the dorsum of the foot that had an odor. This was sharply unroofed down to the tendon sheath with exposed fourth metatarsal. There was no obvious signs of tracking deep within the plantar aspect of the foot or along the dorsal aspect of the foot. This was flushed with copious amounts of normal saline. Minimal Bovie and ligation was needed throughout the case. The wound was packed open, soft bandage applied. The patient was transferred from OR to PACU with all vital signs stable. The patient will be monitored after a vascular attempt. Overall prognosis is poor given the history of smoking and diabetes. I will see the patient within 1-2 days. Masoud Gates, DPM - R AK pop to PT bypass with cryo/ R PT endarterectomy with patch angioplasty. Medications and IVs Inpatient Medications Acetaminophen (Tylenol) 650 mg Q4H PRN PO temp > 101 Last administered on 22:22; Start 01/09/18 at 20:45 Amlodipine Besylate (Norvasc) 5 mg DAILY PO Last administered on 01/12/18at 08: 48; Start 01/08/18 at 09:00 Ampicillin Sodium/ Sulbactam Sodium 3 gm/Sodium Chloride 100 ml @ 200 mls/hr Q6H IV Last administered on 01/13/18at 04:45; Start 01/08/18 at 17:00 Aspirin (Aspirin Chew) 324 mg ONCE ONCE CHEW Last administered on 01/04/18at 13 :33; Start 01/04/18 at 13:15; Stop 01/04/18 at 13:16; Status DC Aspirin (Aspirin) 325 mg DAILY PO ; Start 01/13/18 at 09:00 Aspirin (Ecotrin Ec) 81 mg DAILY PO Last administered on 01/11/18at 09:07; Start 01/06/18 at 09:00; Stop 01/12/18 at 17:16; Status DC Atorvastatin Calcium (Lipitor) 40 mg HS PO Last administered on 01/12/18at 20:48 ; Start 01/12/18 at 21:00 Bisacodyl (Dulcolax Supp) 10 mg DAILY PRN RECTAL SEVERE CONSITIPATION; Start at 14:30 Cefepime HCl 2000 mg/Sodium Chloride 100 ml @ 200 mls/hr Q12H IV Last administered on 01/05/18at 06:04; Start 01/04/18 at 18:00; Stop 01/05/18 at 12:37 ; Status DC Chlorhexidine Gluconate (Chlorhexidine 2% Cloth) 3 pack LATEX RIBBON MACHINE OPERATOR PRN TOPICAL SEE LABEL COMMENTS; Start 01/12/18 at 02:30; Stop 01/15/18 at 02:29 Clonidine (Catapres) 0.1 mg Q4H PRN PO SBP>160, DBP>90 Last administered on at 04:46; Start 01/07/18 at 15:45 Clopidogrel Bisulfate (Plavix) 75 mg DAILY PO Last administered on 01/12/18at 08 :49; Start 01/08/18 at 09:00 Dextrose (D25w Inj) 10 ml ONCE ONCE IV PUSH Last administered on 01/04/18at 14: 28; Start 01/04/18 at 13:45; Stop 01/04/18 at 13:46; Status DC Dextrose (D50w (Vial) Inj) 50 ml UNSCH PRN IV PUSH HYPOGLYCEMIA-SEE COMMENTS; Start 01/04/18 at 17:45; Stop 01/06/18 at 10:41; Status DC Enoxaparin Sodium (Lovenox Inj) 40 mg Q24H SQ ; Start 01/13/18 at 16:00 Gabapentin (Neurontin) 300 mg TID PO Last administered on 01/12/18at 08:48; Start 01/04/18 at 18:00 Glucagon (Glucagon Inj) 1 mg UNSCH PRN OTHER HYPOGLYCEMIA-SEE COMMENTS; Start 01/04/18 at 17:45; Stop 01/06/18 at 10:41; Status DC Hydromorphone HCl (Dilaudid) 2 mg Q4H PRN PO PAIN SCALE 6 TO 10 Last administered on 01/13/18at 06:39; Start 01/12/18 at 16:30 Insulin Aspart (NovoLOG SUPPLEMENTAL SCALE) 1 ACHS SLIDING SCALE SQ Last administered on 01/11/18at 17:00; Start 01/06/18 at 12:00 Insulin Aspart Prota 70%/Aspart 30% (NovoLOG MIX 70/ 30 INJ) 30 units BID@0800, 1700 SQ Last administered on 01/11/18at 18:34; Start 01/06/18 at 17:00 Iron Sucrose 200 mg/Sodium Chloride 110 ml @ 110 mls/hr DAILY IV Last administered on 01/07/18at 12:23; Start 01/05/18 at 15:00; Stop 01/07/18 at 09:59 ; Status DC Lactated Ringer's 1,000 ml @ 30 mls/hr Q24H PRN IV SEE LABEL COMMENTS Last administered on 01/12/18at 10:55; Start 01/12/18 at 02:30; Stop 01/15/18 at 02:29 Lactulose (Lactulose Liq) 30 ml DAILY PRN PO SEVERE CONSITIPATION; Start at 14:30 Lisinopril (Prinivil) 10 mg DAILY PO Last administered on 01/11/18at 09:07; Start 01/05/18 at 09:00 Magnesium Hydroxide (Milk Of Magnesia Liq) 30 ml Q12H PRN PO Mild constipation ; Start 01/08/18 at 14:30 Miscellaneous Information ([facility] Information) ALL NURSING DEPARTME... UNSCH PRN .XX SEE LABEL COMMENTS; Start 01/12/18 at 18:30; Stop 01/13/18 at 18: 29 Miscellaneous Information ([facility] Ordered Lab Info) SPECIFIC LAB TO BE ROSALEE... ONCE ONCE .XX Last administered on 01/06/18at 12:45; Start 01/06/18 at 12:45; Stop 01/06/18 at 12:46; Status DC Morphine Sulfate (Morphine Inj) 2 mg Q1H PRN IV PUSH BREAKTHROUGH PAIN Last administered on 01/13/18at 04:46; Start 01/12/18 at 16:30 Naloxone HCl (Narcan Inj) 0.4 mg UNSCH PRN IV PUSH SEE LABEL COMMENTS; Start at 11:00 Ondansetron HCl (Zofran Odt) 4 mg ONCE ONCE PO Last administered on at 13:33; Start 01/04/18 at 12:15; Stop 01/04/18 at 12:16; Status DC Oxycodone HCl (Roxicodone) 5 mg Q4H PRN PO PAIN SCALE 1 TO 5; Start 01/12/18 at 16:30 Oxycodone/ Acetaminophen (Percocet 7.5-325 Mg) 1 tab Q6H PRN PO PAIN SCALE 6 TO 10 Last administered on 01/10/18at 09:06; Start 01/04/18 at 18:00; Stop at 11:02; Status DC Oxycodone/ Acetaminophen (Percocet 5-325 Mg) 1 tab Q6HR PRN PO PAIN SCALE 3 TO 5; Start 01/04/18 at 18:00; Stop 01/12/18 at 18:15; Status DC Oxycodone/ Acetaminophen (Percocet 10-325 Mg) 1 tab Q6H PRN PO PAIN SCALE 6 TO 10 Last administered on 01/11/18at 18:34; Start 01/10/18 at 11:00; Stop 01/12/18 at 18:15; Status DC Pantoprazole Sodium (Protonix) 20 mg DAILY PO Last administered on 01/12/18at 08 :49; Start 01/05/18 at 09:00 Pharmacy Profile Note 0 ml @ 0 mls/hr UNSCH OTHER ; Start 01/04/18 at 18:00; Stop 01/07/18 at 14:48; Status DC Piperacillin Sod/ Tazobactam Sod 50 ml @ 100 mls/hr Q6H IV Last administered on 01/08/18at 14:55; Start 01/07/18 at 21:00; Stop 01/08/18 at 15:48; Status DC Polyethylene Glycol (Miralax) 17 gm DAILY PO ; Start 01/09/18 at 09:00 Povidone Iodine (Betadine 5% Antisepsis Kit) 1 applic LATEX RIBBON MACHINE OPERATOR PRN EACH NARE SEE LABEL COMMENTS; Start 01/12/18 at 02:30; Stop 01/15/18 at 02:29 Senna/Docusate Sodium (Trixie-Colace) 1 tab BID PO Last administered on at 08:48; Start 01/08/18 at 15:00 Sennosides (Senokot) 17.2 mg Q12H PRN PO Moderate constipation; Start 01/08/18 at 14:30 Sodium Chloride 500 ml @ 30 mls/hr [id number] PRN IV SEE LABEL COMMENTS Last administered on 01/12/18at 10:55; Start 01/12/18 at 02:30; Stop 01/15/18 at 02:29 Vancomycin HCl 1000 mg/Sodium Chloride 250 ml @ 250 mls/hr Q12H IV ; Start at 06:00; Stop 01/05/18 at 06:00; Status DC Vancomycin HCl 1250 mg/Sodium Chloride 262.5 ml @ 250 mls/hr Q12H IV Last administered on 01/06/18at 13:24; Start 01/05/18 at 01:00; Stop 01/06/18 at 15:21 ; Status DC Vancomycin HCl 1500 mg/Sodium Chloride 515 ml @ 250 mls/hr Q18H IV Last administered on 01/07/18at 05:20; Start 01/07/18 at 06:00; Stop 01/07/18 at 14:48 ; Status DC Zolpidem Tartrate (Ambien) 5 mg ONCE ONCE PO Last administered on 01/04/18at 22 :40; Start 01/04/18 at 22:15; Stop 01/04/18 at 22:16; Status DC A/P Problem List: (1) Leukocytosis ICD Code: D72.829 - Elevated white blood cell count, unspecified Status: Acute (2) Peripheral vascular disease ICD Code: I73.9 - Peripheral vascular disease, unspecified Status: Acute (3) Diabetic foot infection ICD Code: E11.628 - Type 2 diabetes mellitus with other skin complications; L08.9 - Local infection of the skin and subcutaneous tissue, unspecified Status: Acute (4) Renal insufficiency ICD Code: N28.9 - Disorder of kidney and ureter, unspecified (5) Hypertension ICD Code: I10 - Essential (primary) hypertension (6) DVT (deep venous thrombosis) ICD Code: I82.409 - Acute embolism and thrombosis of unspecified deep veins of unspecified lower extremity Assessment and Plan A/P Sepsis secondary to diabetic right foot infection with dry gangrene 4th digit with possible abscess on exam and possible underlying OM -s/p right fourth toe amputation and I/D of the right foot -Blood cultures negative. -wound culture with MSSA and Enterococcus Faecalis -on Unasyn per ID. Suspected dry gangrene Peripheral vascular disease -S/P angioplasty January [address] Cullen -s/p R AK pop to PT bypass with cryo/R PT endarterectomy with patch angioplasty -continue aspirin/ plavix and statin -management per vascular surgery left arm swelling/pain; will check venous doppler Acute kidney injury superimposed on CKD - improving w/ IVF -will monitor. Microcytic anemia- chronic disease? -will check the stool for blood-pending. -monitor H/H Diabetes type 2 -Hold metformin for now, sliding scale with Accu-Chek -resumed insulin - medical noncompliance due to lack of insurance and uncontrolled diabetes Diabetic neuropathy -Continue on gabapentin Hypertension- BP at times elevated- likely due to the pain -Continue lisinopril -added Norvasc; will consider increasing Norvasc if BP remains elevated. -will monitor. DVT prophylaxis with subq Lovenox. Discharge Planning still febrile- awaiting vascular and ID follow-up/ recommendations. Problem Qualifiers (1) Leukocytosis: Qualified Codes: D72.829 - Elevated white blood cell count, unspecified Katrina Ruiz MD January 13, 2018 08:18
[2018-01-13] MEDS: DOCUSATE SODIUM 50 MG/SENNA 8.6 MG TAB PO SCH ×2 (09:00→21:00)
[2018-01-13] MEDS: POLYETHYLENE GLYCOL 17 GM PKG PO SCH (09:00)
[2018-01-13] MEDS: amLODIPine BESYLATE 5 MG TAB PO SCH (10:02)
[2018-01-13] MEDS: LISINOPRIL 10 MG TAB PO SCH (10:02)
[2018-01-13] MEDS: ASPIRIN 325 MG TAB PO SCH (10:02)
[2018-01-13] MEDS: ACETAMINOPHEN 325 MG TAB PO PRN (10:02)
[2018-01-13] MEDS: CLOPIDOGREL 75 MG TAB PO SCH (10:02)
[2018-01-13] MEDS: INSULIN ASPART SUPPLEMENTAL SCALE SQ SCH ×4 (10:03→21:49)
[2018-01-13] MEDS: PANTOPRAZOLE SOD 20 MG DELAYED RELEASE TAB PO SCH (10:03)
[2018-01-13] MEDS: GABAPENTIN 300 MG CAP PO SCH ×2 (10:03→13:53)
--- NOTE | 2018-01-13 11:28 | RADRPT ---
EXAM DATE: 01/13/2018 11:07 AM EDT AGE/SEX: 42 years / Male INDICATIONS: Left upper arm swelling. IV in arm since January 07. CLINICAL DATA: This is the patient's initial encounter. Patient reports that signs and symptoms have been present for 1 day and indicates a pain score of 6/10. MEDICAL/SURGICAL HISTORY: Hypertension. Diabetes. . Right ankle surgery. COMPARISON: No prior [facility] exams available for comparison. FINDINGS: There is spontaneous flow documented in the brachial, basilic, cephalic, axillary, and subclavian vei ns. The vessels are compressible and augmentation response is documented. No filling defects are se en. The flow is phasic with respiration. Direction of flow in the jugular vein is caudal. CONCLUSION: 1. No evidence of DVT. Electronically signed by: Bruno Ellis MD 01/13/2018 11:27 AM EDT
--- NOTE | 2018-01-13 12:44 | PD.VS.PN ---
Subjective POD #: 1 Procedure(s): R AK pop to PT bypass PT endarterectomy and patch Subjective/Hospital Course notes leg pain but foot feels better pain medication working jessica po Objective Vitals/I&O Date Time Temp Pulse Resp B/P (MAP) Pulse Ox O2 Delivery O2 Flow Rate FiO2 01/13/18 08:05 100.9 98 18 110/56 (74) 96 01/13/18 08:02 96 21 01/13/18 04:37 101.1 106 18 170/85 (113) 94 01/13/18 04:00 Room Air 01/13/18 03:09 18 01/13/18 00:00 Room Air 01/12/18 23:33 18 01/12/18 23:12 99.7 108 18 156/76 (102) 95 01/12/18 20:00 98.5 104 18 180/96 (124) 92 01/12/18 17:45 96 16 137/58 (84) 97 01/12/18 17:30 92 16 125/80 (95) 100 01/12/18 17:23 92 16 124/82 (96) 97 01/12/18 17:00 90 16 167/82 (110) 99 01/12/18 16:45 87 16 167/82 (110) 99 01/12/18 16:32 98.2 85 16 168/82 (110) 98 Nasal Cannula 2 01/13/18 01/13/18 01/13/18 07:00 15:00 23:00 Intake Total 1920 ml Output Total 1300 ml Balance 620 ml Exam: resting comfortably thigh incision c/d/i calf dressing ok Strong PT signal in foot Laboratory Date/Time Source Procedure Growth Status 01/09/18 21:44 Blood Peripheral Aerobic Blood Culture - Preliminary NO GROWTH IN 4 DAYS Resulted 01/09/18 21:44 Blood Peripheral Anaerobic Blood Culture - Preliminary NO GROWTH IN 4 DAYS Resulted 01/05/18 17:05 Wound Foot Fungal Smear - Final NO FUNGAL ELEMENTS SEEN. Resulted 01/05/18 17:05 Wound Foot Fungal Culture - Preliminary NO GROWTH IN 1 WEEK Resulted Assessment and Plan Assessment: (1) Peripheral vascular disease Status: Acute (2) Diabetic foot infection Status: Acute Plan POD#1 s/p R LE bypass, bypass patent and good Doppler signals in foot 1. OOB TC and ambulate ad rachael from a vascular surgery standpoint 2. Foot wound care per podiatry 3. needs ASA daily 4. ok to adv diet 5. [place] out as ordered 6. PT Discharge Planning prob 3-4 days from a vascular surgery standpoint, pending mobility and pain control Moe Cullen MD January 13, 2018 12:44
[2018-01-13] MEDS: ENOXAPARIN SODIUM 40 MG/0.4 ML SYRINGE SQ SCH (16:00)
--- NOTE | 2018-01-13 20:44 | HHI.PR ---
Subjective Remarks Patient seen bedside with family present. Patient denies any nausea vomiting fevers or chills. States right lower extremity is still sore from revascularization. Objective Vital Signs Date Time Temp Pulse Resp B/P (MAP) Pulse Ox O2 Delivery O2 Flow Rate FiO2 01/13/18 19:44 99 01/13/18 19:41 Room Air 2.00 21 01/13/18 16:05 100.7 98 18 127/90 (102) 95 01/13/18 12:05 99.8 94 18 114/58 (76) 97 01/13/18 08:05 100.9 98 18 110/56 (74) 96 01/13/18 08:02 96 21 01/13/18 04:37 101.1 106 18 170/85 (113) 94 01/13/18 04:00 Room Air 01/13/18 03:09 18 01/13/18 00:00 Room Air 01/12/18 23:33 18 01/12/18 23:12 99.7 108 18 156/76 (102) 95 I/O 01/12/18 01/12/18 01/12/18 01/13/18 01/13/18 01/13/18 07:00 15:00 23:00 07:00 15:00 23:00 Intake Total 1462 ml 2800 ml 1920 ml 640 ml Output Total 350 ml 300 ml 775 ml 1300 ml 1800 ml Balance 1112 ml -300 ml 2025 ml 620 ml -1160 ml Intake Oral 480 ml 0 ml 720 ml 640 ml IV Total 982 ml 1200 ml Other 2800 ml Output Urine Total 350 ml 300 ml 675 ml 1300 ml 1800 ml Estimated Blood Loss 100 ml # Bowel Movements 0 0 0 0 Result Diagram: 01/11/18 0340 01/11/18 0340 Imaging Last Impressions Upper Extremity Ultrasound 01/13/18 0000 Signed Impressions: CONCLUSION: 1. No evidence of DVT. Lower Extremity Ultrasound 01/06/18 0000 Signed Impressions: Service Date/Time: Saturday, January 06, 2018 17:05 - CONCLUSION: No DVT. Gibson Isaac MD Foot MRI 01/06/18 0000 Signed Impressions: Service Date/Time: Saturday, January 06, 2018 15:27 - CONCLUSION: Generalized edema with minimal enhancement in the operative bed, nonspecific. No evidence rales myelitis. Antonio Cole MD FACR Chest X-Ray 01/05/18 0600 Signed Impressions: Service Date/Time: Friday, January 05, 2018 09:18 - CONCLUSION: 1. No acute cardiopulmonary findings. Fausto Cole MD Lower Extremity CT 01/04/18 0000 Signed Impressions: Service Date/Time: Thursday, January 04, 2018 17:37 - CONCLUSION: 1. Soft tissue ulcer in the lateral proximal forefoot with subcutaneous air extending to the base of the fourth digit. No definite osseous abnormality to suggest osteomyelitis. Consider MRI examination if there is continued clinical concern. Giorgi Rider MD Foot X-Ray 01/04/18 0000 Signed Impressions: Service Date/Time: Thursday, January 04, 2018 12:43 - CONCLUSION: Negative for acute process. Antonio Cole MD FACR Other Results Microbiology Date/Time Source Procedure Growth Status 01/09/18 21:44 Blood Peripheral Aerobic Blood Culture - Preliminary NO GROWTH IN 4 DAYS Resulted 01/09/18 21:44 Blood Peripheral Anaerobic Blood Culture - Preliminary NO GROWTH IN 4 DAYS Resulted 01/05/18 17:05 Wound Foot Fungal Smear - Final NO FUNGAL ELEMENTS SEEN. Resulted 01/05/18 17:05 Wound Foot Fungal Culture - Preliminary NO GROWTH IN 1 WEEK Resulted Objective Remarks Right dorsal fourth metatarsal ulceration noted with exposed fourth metatarsal head, fibronecrotic base noted with serous drainage, no fluctuance or crepitance noted, no purulent drainage noted upon compression. Right fourth digit amputation noted Medications and IVs Current Medications Medications (Trade) Dose Ordered Sig/Soco Route Start Time Stop Time Status Last Admin Sodium Chloride 1,000 ml @ 70 mls/hr [id number] IV 01/04/18 15:00 01/12/18 23:12 (Prinivil) 10 mg DAILY PO 01/05/18 09:00 01/13/18 10:02 (Neurontin) 300 mg TID PO 01/04/18 18:00 01/13/18 13:53 (Protonix) 20 mg DAILY PO 01/05/18 09:00 01/13/18 10:03 (Plavix) 75 mg DAILY PO 01/08/18 09:00 01/13/18 10:02 (NovoLOG MIX 70/ 30 INJ) 30 units BID@0800,1700 SQ 01/06/18 17:00 01/11/18 18:34 (NovoLOG SUPPLEMENTAL SCALE) 1 ACHS SLIDING SCALE SQ 01/06/18 12:00 01/13/18 17:59 (Norvasc) 5 mg DAILY PO 01/08/18 09:00 01/13/18 10:02 (Catapres) 0.1 mg Q4H PRN PO 01/07/18 15:45 01/13/18 04:46 (Trixie-Colace) 1 tab BID PO 01/08/18 15:00 01/12/18 08:48 (Milk Of Magnesia Liq) 30 ml Q12H PRN PO 01/08/18 14:30 (Senokot) 17.2 mg Q12H PRN PO 01/08/18 14:30 (Dulcolax Supp) 10 mg DAILY PRN RECTAL 01/08/18 14:30 (Lactulose Liq) 30 ml DAILY PRN PO 01/08/18 14:30 (Miralax) 17 gm DAILY PO 01/09/18 09:00 Ampicillin Sodium/ Sulbactam Sodium 3 gm/Sodium Chloride 100 ml @ 200 mls/hr Q6H IV 01/08/18 17:00 01/13/18 17:58 (Tylenol) 650 mg Q4H PRN PO 01/09/18 20:45 01/13/18 10:02 (Narcan Inj) 0.4 mg UNSCH PRN IV PUSH 01/10/18 11:00 Lactated Ringer's 1,000 ml @ 30 mls/hr Q24H PRN IV 01/12/18 02:30 01/15/18 02:29 01/12/18 10:55 Sodium Chloride 500 ml @ 30 mls/hr [id number] PRN IV 01/12/18 02:30 01/15/18 02:29 01/12/18 10:55 (Betadine 5% Antisepsis Kit) 1 applic LABOR TRAINER PRN EACH NARE 01/12/18 02:30 01/15/18 02:29 (Chlorhexidine 2% Cloth) 3 pack LABOR TRAINER PRN TOPICAL 01/12/18 02:30 01/15/18 02:29 (Aspirin) 325 mg DAILY PO 01/13/18 09:00 5/23/18 10:02 (Lipitor) 40 mg HS PO 01/12/18 21:00 01/12/18 20:48 (Roxicodone) 5 mg Q4H PRN PO 01/12/18 16:30 (Dilaudid) 2 mg Q4H PRN PO 01/12/18 16:30 01/13/18 10:01 (Morphine Inj) 2 mg Q1H PRN IV PUSH 01/12/18 16:30 01/13/18 04:46 (Lovenox Inj) 40 mg Q24H SQ 01/13/18 16:00 Assessment and Plan Assessment and Plan 42-year-old male with right foot dorsal wound with exposed fourth metatarsal head Patient examined and evaluated with all questions answered with family present bedside To OR tomorrow for fourth metatarsal head resection and wound VAC placement Santyl to be placed bedside Consent to read right fourth metatarsal head resection with wound VAC placement N.p.o. after midnight Ruth Glass DPM January 13, 2018 20:44
[2018-01-13] MEDS: ATORVASTATIN 40 MG TAB PO SCH (21:44)
[2018-01-13] MEDS: SODIUM CHLOR 0.9% 1000 ML INJ 1,000 ML IV SCH ×2 (21:55→23:17)
[2018-01-14] VITALS: BP 108/96; PULSE 103; RESP 16; TEMP 98.6; O2SAT 94
[2018-01-14 03:55] VITALS: BP 143/77; PULSE 109; RESP 18; TEMP 100.2; O2SAT 95
[2018-01-14] MEDS: HYDROmorphone HCL 2 MG TAB PO PRN ×3 (04:15→20:30)
[2018-01-14] MEDS: ACETAMINOPHEN 325 MG TAB PO PRN (04:16)
[2018-01-14] MEDS: AMPICILLIN-SULBACTAM INJ 3 GM in SODIUM CHLORIDE 0.9% INJ 100 ML IV SCH ×4 (04:16→23:15)
[2018-01-14] MEDS: INSULIN ASPART SUPPLEMENTAL SCALE SQ SCH ×4 (07:54→21:08)
[2018-01-14 08:00] VITALS: BP 121/59; PULSE 94; RESP 16; TEMP 98.8; O2SAT 95
[2018-01-14] MEDS: INSULIN ASPAR PROT 70/30 1,000 UNITS/10 ML VIAL SQ SCH ×2 (08:00→17:00)
--- NOTE | 2018-01-14 08:37 | HHI.PR ---
Subjective Remarks in no acute distress. pain is controlled. Tmax 100.7. d/w the RN. Objective Vitals Vital Signs Date Time Temp Pulse Resp B/P (MAP) Pulse Ox O2 Delivery O2 Flow Rate FiO2 01/14/18 06:33 18 01/14/18 03:55 100.2 109 18 143/77 (99) 95 01/14/18 00:00 98.6 103 16 108/96 (100) 94 01/13/18 20:07 99.5 105 16 111/92 (98) 96 01/13/18 19:44 99 01/13/18 19:41 Room Air 2.00 21 01/13/18 16:05 100.7 98 18 127/90 (102) 95 01/13/18 12:05 99.8 94 18 114/58 (76) 97 I/O 01/13/18 01/13/18 01/13/18 01/14/18 01/14/18 01/14/18 07:00 15:00 23:00 07:00 15:00 23:00 Intake Total 1920 ml 640 ml 1530 ml Output Total 1300 ml 1800 ml 750 ml Balance 620 ml -1160 ml 780 ml Intake Oral 720 ml 640 ml 330 ml IV Total 1200 ml 1200 ml Output Urine Total 1300 ml 1800 ml 750 ml # Bowel Movements 0 0 0 Result Diagram: 01/11/18 0340 01/11/18 0340 Imaging Last Impressions Upper Extremity Ultrasound 01/13/18 0000 Signed Impressions: CONCLUSION: 1. No evidence of DVT. Lower Extremity Ultrasound 01/06/18 0000 Signed Impressions: Service Date/Time: Saturday, January 06, 2018 17:05 - CONCLUSION: No DVT. Gibson Isaac MD Foot MRI 01/06/18 0000 Signed Impressions: Service Date/Time: Saturday, January 06, 2018 15:27 - CONCLUSION: Generalized edema with minimal enhancement in the operative bed, nonspecific. No evidence rales myelitis. Antonio Cole MD FACR Chest X-Ray 01/05/18 0600 Signed Impressions: Service Date/Time: Friday, January 05, 2018 09:18 - CONCLUSION: 1. No acute cardiopulmonary findings. Fausto Cole MD Lower Extremity CT 01/04/18 0000 Signed Impressions: Service Date/Time: Thursday, January 04, 2018 17:37 - CONCLUSION: 1. Soft tissue ulcer in the lateral proximal forefoot with subcutaneous air extending to the base of the fourth digit. No definite osseous abnormality to suggest osteomyelitis. Consider MRI examination if there is continued clinical concern. Giorgi Rider MD Foot X-Ray 01/04/18 0000 Signed Impressions: Service Date/Time: Thursday, January 04, 2018 12:43 - CONCLUSION: Negative for acute process. Antonio Cole MD FACR Objective Remarks GENERAL: This is a well-nourished, well-developed patient, in no apparent distress. CARDIOVASCULAR: Regular rate and regular rhythm without murmurs, gallops, or rubs. RESPIRATORY: Clear to auscultation. Breath sounds equal bilaterally. No wheezes , rales, or rhonchi. GASTROINTESTINAL: Abdomen soft, non-tender, nondistended. Normal, active bowel sounds MUSCULOSKELETAL: right foot covered with clean dressing. NEURO: Alert & Oriented x4 to person, place, time, situation. Moves all ext x4 Procedures ANGIOGRAM - Moe Cullen MD DATE OF OPERATION: PREOPERATIVE DIAGNOSIS: Right lower extremity tissue loss, peripheral vascular disease. POSTOPERATIVE DIAGNOSIS: Right lower extremity tissue loss, peripheral vascular disease. PROCEDURE PERFORMED: 1. Aortogram with right lower extremity angiogram. 2. Right SFA and popliteal artery angioplasty with 5 mm balloon. 3. Left common femoral artery Angio-Seal. OPERATING SURGEON: Moe Cullen MD ANESTHESIA: Local with sedation. INDICATIONS: Mr. Garibay is a 42-year-old gentleman with right lower extremity tissue loss. He is taken to the operating room for angiographic evaluation and potential treatment. There was no prior catheter-based imaging available for my review. DESCRIPTION OF PROCEDURE: Informed consent was obtained from the patient. He was taken to the operating room and placed supine on the operating table. An appropriate timeout was taken to ensure the patient's identity, the operative site and planned procedure. The administration of antibiotics was not necessary as this is a clean procedure without the planned implantation of any foreign object. Everyone in the room agreed with timeout and we proceeded. His bilateral groins prepped and draped. Left groin was anesthetized with 1% lidocaine. A 21-gauge micropuncture needle was used to access the left common femoral artery, was exchanged using Seldinger technique through micropuncture sheath, which a 0.035 Glidewire was introduced. Micropuncture sheath was exchanged for a 4-Burmese sheath. A VCF catheter was placed over the wire and through the sheath and aortogram, pelvic arteriogram was obtained. The Glidewire was reintroduced and navigated down to the right common femoral artery and the VCF catheter was advanced over this and a right lower extremity arteriogram was obtained. The patient was systemically heparinized with 5000 units of IV Heparin. A 0.035 Ceballos wire was introduced down to the mid SFA and the VCF catheter and 4-Burmese sheath were removed and a 6-Burmese 55 cm Dimitry sheath was introduced. A CXI catheter was placed over the wire into the sheath and the wire was exchanged for a TEST DEVELOPMENT ENGINEER wire. Using the TEST DEVELOPMENT ENGINEER wire and CXI catheter we were able to navigate through the SFA lesion and the popliteal lesion. Both of these were angioplastied with a 5 x 200 and 5 x 80 balloon, respectively. The completion angiogram showed excellent result on recoil extravasation. We then did advance the catheter down to the popliteal artery. An angiogram was obtained. The wire, catheter and sheath were removed and the groin was closed with Angio-Seal. There were no complications. I was present and scrubbed for the entire procedure. INTERPRETATION OF IMAGES: The patient has a patent terminal aorta, common iliac arteries, hypogastric arteries and external iliac arteries, none of which have any hemodynamically significant stenoses. The right common femoral artery and profunda are patent without any hemodynamically significant stenosis. The proximal SFA is patent. The mid SFA has high-grade diffuse stenosis that was successfully angioplastied and the popliteal artery had a similar high-grade diffuse stenosis that was successfully angioplastied. The below knee popliteal artery occludes and there was no posterior tibial artery or peroneal artery proximally. The perigeniculate collaterals give rise to the posterior tibial artery in the mid to distal calf. , 09:14 AM Masoud Gates DPM DATE OF OPERATION: 01/05/2018 PREOPERATIVE DIAGNOSIS: Right fourth digit gangrene, abscess, diabetic foot infection. POSTOPERATIVE DIAGNOSIS: Right fourth digit gangrene, abscess, diabetic foot infection. PROCEDURE PERFORMED: Right fourth digit amputation, incision and drainage deep, right foot. INTRAOPERATIVE FINDINGS: Minimal bleeding. Foul odor at level of amputation site. S SPECIMENS: Fourth digit for pathology. Deep culture at amputation site for micro. ESTIMATED BLOOD LOSS: Less than 30 mL ANESTHESIA: General. DRAINS: None. TOURNIQUET: None. DISPOSITION: Returned to floor for vascular intervention and monitor of foot. May need wound VAC versus repetitive debridements versus amputation at a later date. JUSTIFICATION FOR PROCEDURE: A 42-year-old diabetic male with a history of smoking, was admitted. CT showed gas within the tissue at the base of the fourth digit. The patient was planned for vascular intervention; however, we wished to eradicate infection or at least debulk the infection first. The patient was educated on risks and benefits, need for more surgery, loss of limb. No guarantees were given or implied regarding the outcome. PROCEDURE IN DETAIL: Under mild sedation, the patient was brought into the operating room, placed on the operating table in supine position. Following the induction of general anesthesia, the patient's right lower extremity was scrubbed, prepped and draped in the usual aseptic fashion. The foot was elevated and examined. There was noted to be a necrotic, delayed capillary fill time, a putrid-smelling right fourth digit. A fishmouth mouth type incision was made disarticulating the digit down to the level of the joint. There were gas bubbles within the tissue. There was purulent drainage. There was a full-thickness eschar of the dorsum of the foot that had an odor. This was sharply unroofed down to the tendon sheath with exposed fourth metatarsal. There was no obvious signs of tracking deep within the plantar aspect of the foot or along the dorsal aspect of the foot. This was flushed with copious amounts of normal saline. Minimal Bovie and ligation was needed throughout the case. The wound was packed open, soft bandage applied. The patient was transferred from OR to PACU with all vital signs stable. The patient will be monitored after a vascular attempt. Overall prognosis is poor given the history of smoking and diabetes. I will see the patient within 1-2 days. Masoud Gates, DPM - R [place] pop to PT bypass with cryo/ R PT endarterectomy with patch angioplasty. Medications and IVs Inpatient Medications Acetaminophen (Tylenol) 650 mg Q4H PRN PO temp > 101 Last administered on 04:16; Start 01/09/18 at 20:45 Amlodipine Besylate (Norvasc) 5 mg DAILY PO Last administered on 01/13/18at 10: 02; Start 01/08/18 at 09:00 Ampicillin Sodium/ Sulbactam Sodium 3 gm/Sodium Chloride 100 ml @ 200 mls/hr Q6H IV Last administered on 01/14/18at 04:16; Start 01/08/18 at 17:00 Aspirin (Aspirin Chew) 324 mg ONCE ONCE CHEW Last administered on 01/04/18at 13 :33; Start 01/04/18 at 13:15; Stop 01/04/18 at 13:16; Status DC Aspirin (Aspirin) 325 mg DAILY PO Last administered on 01/13/18at 10:02; Start 01/13/18 at 09:00 Aspirin (Ecotrin Ec) 81 mg DAILY PO Last administered on 01/11/18at 09:07; Start 01/06/18 at 09:00; Stop 01/12/18 at 17:16; Status DC Atorvastatin Calcium (Lipitor) 40 mg HS PO Last administered on 01/13/18at 21:44 ; Start 01/12/18 at 21:00 Bisacodyl (Dulcolax Supp) 10 mg DAILY PRN RECTAL SEVERE CONSITIPATION; Start at 14:30 Cefepime HCl 2000 mg/Sodium Chloride 100 ml @ 200 mls/hr Q12H IV Last administered on 01/05/18at 06:04; Start 01/04/18 at 18:00; Stop 01/05/18 at 12:37 ; Status DC Chlorhexidine Gluconate (Chlorhexidine 2% Cloth) 3 pack VICE PRESIDENT GLO[employer] ADVERTISING SALES PRN TOPICAL SEE LABEL COMMENTS; Start 01/12/18 at 02:30; Stop 01/15/18 at 02:29 Clonidine (Catapres) 0.1 mg Q4H PRN PO SBP>160, DBP>90 Last administered on at 04:46; Start 01/07/18 at 15:45 Clopidogrel Bisulfate (Plavix) 75 mg DAILY PO Last administered on 01/13/18at 10 :02; Start 01/08/18 at 09:00 Collagenase (Santyl Oint) 1 applic DAILY TOPICAL ; Start 01/14/18 at 09:00 Dextrose (D25w Inj) 10 ml ONCE ONCE IV PUSH Last administered on 01/04/18at 14: 28; Start 01/04/18 at 13:45; Stop 01/04/18 at 13:46; Status DC Dextrose (D50w (Vial) Inj) 50 ml UNSCH PRN IV PUSH HYPOGLYCEMIA-SEE COMMENTS; Start 01/04/18 at 17:45; Stop 01/06/18 at 10:41; Status DC Enoxaparin Sodium (Lovenox Inj) 40 mg Q24H SQ ; Start 01/13/18 at 16:00 Gabapentin (Neurontin) 300 mg TID PO Last administered on 01/13/18at 13:53; Start 01/04/18 at 18:00 Glucagon (Glucagon Inj) 1 mg UNSCH PRN OTHER HYPOGLYCEMIA-SEE COMMENTS; Start 01/04/18 at 17:45; Stop 01/06/18 at 10:41; Status DC Hydromorphone HCl (Dilaudid) 2 mg Q4H PRN PO PAIN SCALE 6 TO 10 Last administered on 01/14/18at 04:15; Start 01/12/18 at 16:30 Insulin Aspart (NovoLOG SUPPLEMENTAL SCALE) 1 ACHS SLIDING SCALE SQ Last administered on 01/13/18at 21:49; Start 01/06/18 at 12:00 Insulin Aspart Prota 70%/Aspart 30% (NovoLOG MIX 70/ 30 INJ) 30 units BID@0800, 1700 SQ Last administered on 01/11/18at 18:34; Start 01/06/18 at 17:00 Iron Sucrose 200 mg/Sodium Chloride 110 ml @ 110 mls/hr DAILY IV Last administered on 01/07/18at 12:23; Start 01/05/18 at 15:00; Stop 01/07/18 at 09:59 ; Status DC Lactated Ringer's 1,000 ml @ 30 mls/hr Q24H PRN IV SEE LABEL COMMENTS Last administered on 01/12/18at 10:55; Start 01/12/18 at 02:30; Stop 01/15/18 at 02:29 Lactulose (Lactulose Liq) 30 ml DAILY PRN PO SEVERE CONSITIPATION; Start at 14:30 Lisinopril (Prinivil) 10 mg DAILY PO Last administered on 01/13/18at 10:02; Start 01/05/18 at 09:00 Magnesium Hydroxide (Milk Of Magnesia Liq) 30 ml Q12H PRN PO Mild constipation ; Start 01/08/18 at 14:30 Miscellaneous Information ([facility] Nursing Information) ALL NURSING DEPARTME... UNSCH PRN .XX SEE LABEL COMMENTS; Start 01/12/18 at 18:30; Stop 01/13/18 at 18: 29; Status DC Miscellaneous Information ([facility] Pharm[facility] Ordered Lab Info) SPECIFIC LAB TO BE ROSALEE... ONCE ONCE .XX Last administered on 01/06/18at 12:45; Start 01/06/18 at 12:45; Stop 01/06/18 at 12:46; Status DC Morphine Sulfate (Morphine Inj) 2 mg Q1H PRN IV PUSH BREAKTHROUGH PAIN Last administered on 01/13/18at 04:46; Start 01/12/18 at 16:30 Naloxone HCl (Narcan Inj) 0.4 mg UNSCH PRN IV PUSH SEE LABEL COMMENTS; Start at 11:00 Ondansetron HCl (Zofran Odt) 4 mg ONCE ONCE PO Last administered on at 13:33; Start 01/04/18 at 12:15; Stop 01/04/18 at 12:16; Status DC Oxycodone HCl (Roxicodone) 5 mg Q4H PRN PO PAIN SCALE 1 TO 5; Start 01/12/18 at 16:30 Oxycodone/ Acetaminophen (Percocet 7.5-325 Mg) 1 tab Q6H PRN PO PAIN SCALE 6 TO 10 Last administered on 01/10/18at 09:06; Start 01/04/18 at 18:00; Stop at 11:02; Status DC Oxycodone/ Acetaminophen (Percocet 5-325 Mg) 1 tab Q6HR PRN PO PAIN SCALE 3 TO 5; Start 01/04/18 at 18:00; Stop 01/12/18 at 18:15; Status DC Oxycodone/ Acetaminophen (Percocet 10-325 Mg) 1 tab Q6H PRN PO PAIN SCALE 6 TO 10 Last administered on 01/11/18at 18:34; Start 01/10/18 at 11:00; Stop 01/12/18 at 18:15; Status DC Pantoprazole Sodium (Protonix) 20 mg DAILY PO Last administered on 01/13/18at 10 :03; Start 01/05/18 at 09:00 Pharmacy Profile Note 0 ml @ 0 mls/hr UNSCH OTHER ; Start 01/04/18 at 18:00; Stop 01/07/18 at 14:48; Status DC Piperacillin Sod/ Tazobactam Sod 50 ml @ 100 mls/hr Q6H IV Last administered on 01/08/18at 14:55; Start 01/07/18 at 21:00; Stop 01/08/18 at 15:48; Status DC Polyethylene Glycol (Miralax) 17 gm DAILY PO ; Start 01/09/18 at 09:00 Povidone Iodine (Betadine 5% Antisepsis Kit) 1 applic VICE PRESIDENT [employer] ADVERTISING SALES PRN EACH NARE SEE LABEL COMMENTS; Start 01/12/18 at 02:30; Stop 01/15/18 at 02:29 Senna/Docusate Sodium (Trixie-Colace) 1 tab BID PO Last administered on at 08:48; Start 01/08/18 at 15:00 Sennosides (Senokot) 17.2 mg Q12H PRN PO Moderate constipation; Start 01/08/18 at 14:30 Sodium Chloride 500 ml @ 30 mls/hr [id number] PRN IV SEE LABEL COMMENTS Last administered on 01/12/18at 10:55; Start 01/12/18 at 02:30; Stop 01/15/18 at 02:29 Vancomycin HCl 1000 mg/Sodium Chloride 250 ml @ 250 mls/hr Q12H IV ; Start at 06:00; Stop 01/05/18 at 06:00; Status DC Vancomycin HCl 1250 mg/Sodium Chloride 262.5 ml @ 250 mls/hr Q12H IV Last administered on 01/06/18at 13:24; Start 01/05/18 at 01:00; Stop 01/06/18 at 15:21 ; Status DC Vancomycin HCl 1500 mg/Sodium Chloride 515 ml @ 250 mls/hr Q18H IV Last administered on 01/07/18at 05:20; Start 01/07/18 at 06:00; Stop 01/07/18 at 14:48 ; Status DC Zolpidem Tartrate (Ambien) 5 mg ONCE ONCE PO Last administered on 01/04/18at 22 :40; Start 01/04/18 at 22:15; Stop 01/04/18 at 22:16; Status DC A/P Problem List: (1) Leukocytosis ICD Code: D72.829 - Elevated white blood cell count, unspecified Status: Acute (2) Peripheral vascular disease ICD Code: I73.9 - Peripheral vascular disease, unspecified Status: Acute (3) Diabetic foot infection ICD Code: E11.628 - Type 2 diabetes mellitus with other skin complications; L08.9 - Local infection of the skin and subcutaneous tissue, unspecified Status: Acute (4) Renal insufficiency ICD Code: N28.9 - Disorder of kidney and ureter, unspecified (5) Hypertension ICD Code: I10 - Essential (primary) hypertension (6) DVT (deep venous thrombosis) ICD Code: I82.409 - Acute embolism and thrombosis of unspecified deep veins of unspecified lower extremity Assessment and Plan A/P Sepsis secondary to diabetic right foot infection with dry gangrene 4th digit with possible abscess on exam and possible underlying OM -s/p right fourth toe amputation and I/D of the right foot -Blood cultures negative. -wound culture with MSSA and Enterococcus Faecalis -on Unasyn per ID. -podiatry f/u appreciated and plan for fourth metatarsal head resection and wound VAC placement today. Suspected dry gangrene Peripheral vascular disease -S/P angioplasty January [address] Cullen -s/p R [place] pop to PT bypass with cryo/R PT endarterectomy with patch angioplasty on 01/12. -continue aspirin/ plavix and statin -management per vascular surgery left arm swelling/pain; venous doppler negative for DVT. Acute kidney injury superimposed on CKD - improving w/ IVF -will monitor. Microcytic anemia- chronic disease? -will check the stool for blood-pending. -monitor H/H Diabetes type 2 -Hold metformin for now, sliding scale with Accu-Chek -resumed insulin - medical noncompliance due to lack of insurance and uncontrolled diabetes Diabetic neuropathy -Continue on gabapentin Hypertension- BP at times elevated- likely due to the pain -Continue lisinopril and Norvasc. -will monitor. DVT prophylaxis with subq Lovenox. Discharge Planning for surgical intervention today-per podiatry. Problem Qualifiers (1) Leukocytosis: Qualified Codes: D72.829 - Elevated white blood cell count, unspecified Katrina Ruiz MD January 14, 2018 08:37
[2018-01-14] MEDS: DOCUSATE SODIUM 50 MG/SENNA 8.6 MG TAB PO SCH ×2 (09:00→20:30)
[2018-01-14] MEDS: COLLAGENASE OINT 30 GM TUBE TOPICAL SCH (09:00)
[2018-01-14] MEDS: POLYETHYLENE GLYCOL 17 GM PKG PO SCH (09:00)
[2018-01-14] MEDS: PANTOPRAZOLE SOD 20 MG DELAYED RELEASE TAB PO SCH (09:17)
[2018-01-14] MEDS: ASPIRIN 325 MG TAB PO SCH (09:17)
[2018-01-14] MEDS: CLOPIDOGREL 75 MG TAB PO SCH (09:18)
[2018-01-14] MEDS: amLODIPine BESYLATE 5 MG TAB PO SCH (09:18)
[2018-01-14] MEDS: LISINOPRIL 10 MG TAB PO SCH (09:18)
[2018-01-14] MEDS: GABAPENTIN 300 MG CAP PO SCH ×3 (09:38→18:53)
--- NOTE | 2018-01-14 09:51 | PD.VS.PN ---
Subjective POD #: 2 Procedure(s): R AK pop to PT bypass PT endarterectomy and patch Subjective/Hospital Course POD 2 Pt s/p R LE revascularization/distal bypass Pt w/ improved R LE swelling R LE incisions intact Pain controlled Pt awaits surgical intervention w/ podiatry Objective Vitals/I&O Date Time Temp Pulse Resp B/P (MAP) Pulse Ox O2 Delivery O2 Flow Rate FiO2 01/14/18 07:00 Room Air 01/14/18 06:33 18 01/14/18 03:55 100.2 109 18 143/77 (99) 95 01/14/18 00:00 98.6 103 16 108/96 (100) 94 01/13/18 20:07 99.5 105 16 111/92 (98) 96 01/13/18 19:44 99 01/13/18 19:41 Room Air 2.00 21 01/13/18 16:05 100.7 98 18 127/90 (102) 95 01/13/18 12:05 99.8 94 18 114/58 (76) 97 01/14/18 01/14/18 01/14/18 07:00 15:00 23:00 Intake Total 1530 ml Output Total 750 ml Balance 780 ml Exam: GENERAL: A&OX3,NAD,GCS 15 SKIN: LE Warm and dry w/ motor intact Improved R LE swelling Incision to R LE (thigh) intact Dressing to R LE I/D NECK: Supple, trachea midline. No JVD or lymphadenopathy. CARDIOVASCULAR: Regular rate and rhythm without murmurs, gallops, or rubs. RESPIRATORY: Breath sounds equal bilaterally. No accessory muscle use. GASTROINTESTINAL: Abdomen soft, non-tender, nondistended. RIGHT PT with strong biphasic signal heard via Doppler Laboratory Date/Time Source Procedure Growth Status 01/09/18 21:44 Blood Peripheral Aerobic Blood Culture - Preliminary NO GROWTH IN 4 DAYS Resulted 01/09/18 21:44 Blood Peripheral Anaerobic Blood Culture - Preliminary NO GROWTH IN 4 DAYS Resulted 01/05/18 17:05 Wound Foot Fungal Smear - Final NO FUNGAL ELEMENTS SEEN. Resulted 01/05/18 17:05 Wound Foot Fungal Culture - Preliminary NO GROWTH IN 1 WEEK Resulted Assessment and Plan Assessment: (1) Peripheral vascular disease Status: Acute (2) Diabetic foot infection Status: Acute Plan POD#2 S/p R LE bypass Bypass patent Pt continues w/ good Doppler signals in right foot PLAN PT/OOB TC/Ambulate ad rachael from a vascular surgery standpoint Continue Foot wound care per podiatry Kasey Caldwell NP [facility] [phone] Discharge Planning 2-3days from a vascular surgery standpoint Kasey Caldwell January 14, 2018 09:51
[2018-01-14 10:47] VITALS: O2SAT 92
[2018-01-14 12:00] VITALS: BP 164/91; PULSE 98; RESP 16; TEMP 97.9; O2SAT 95
[2018-01-14] MEDS ORDERED: ONDANSETRON HCL 4 MG/2 ML VIAL IV PUSH ONE (12:00)
[2018-01-14] MEDS ORDERED: ePHEDrine/NS 25 MG/5 ML SYRINGE IV ONE (12:00)
[2018-01-14] MEDS ORDERED: SUCCINYLCHOLINE CHLORIDE 100 MG/5 ML SYRINGE IV PUSH ONE (12:00)
[2018-01-14] MEDS ORDERED: GLYCOPYRROLATE 1 MG/5 ML SYRINGE IV PUSH ONE (12:00)
[2018-01-14] MEDS ORDERED: DEXAMETHASONE SOD PHOS 4 MG/ML VIAL IV ONE (12:00)
[2018-01-14] MEDS ORDERED: LIDOCAINE HCL 1% PF 5 ML SYRINGE OTHER ONE (12:00)
[2018-01-14] MEDS ORDERED: PHENYLEPH/NS 1000 MCG/10 ML SYR IV ONE (12:00)
[2018-01-14] MEDS ORDERED: PROPOFOL 200 MG/20 ML AMP IV ONE (12:00)
[2018-01-14] MEDS: ENOXAPARIN SODIUM 40 MG/0.4 ML SYRINGE SQ SCH (16:00)
--- NOTE | 2018-01-14 16:50 | HHI.PR ---
Subjective Remarks Patient seen bedside in preop. Denies any N,V,F,Ch. Would like to go home, states the hospital is starting to depress him. Objective Vital Signs Date Time Temp Pulse Resp B/P (MAP) Pulse Ox O2 Delivery O2 Flow Rate FiO2 01/14/18 12:00 97.9 98 16 164/91 (115) 95 01/14/18 11:00 Room Air 01/14/18 10:47 92 21 01/14/18 08:00 98.8 94 16 121/59 (79) 95 01/14/18 07:00 Room Air 01/14/18 06:33 18 01/14/18 03:55 100.2 109 18 143/77 (99) 95 01/14/18 00:00 98.6 103 16 108/96 (100) 94 01/13/18 20:07 99.5 105 16 111/92 (98) 96 01/13/18 19:44 99 01/13/18 19:41 Room Air 2.00 21 I/O 01/13/18 01/13/18 01/13/18 01/14/18 01/14/18 01/14/18 06:59 14:59 22:59 06:59 14:59 22:59 Intake Total 1920 ml 640 ml 1530 ml Output Total 1300 ml 1800 ml 750 ml Balance 620 ml -1160 ml 780 ml Intake Oral 720 ml 640 ml 330 ml IV Total 1200 ml 1200 ml Output Urine Total 1300 ml 1800 ml 750 ml # Bowel Movements 0 0 0 Result Diagram: 01/11/18 0340 01/11/18 0340 Imaging Last Impressions Upper Extremity Ultrasound 01/13/18 0000 Signed Impressions: CONCLUSION: 1. No evidence of DVT. Lower Extremity Ultrasound 01/06/18 0000 Signed Impressions: Service Date/Time: Saturday, January 06, 2018 17:05 - CONCLUSION: No DVT. Gibson Isaac MD Foot MRI 01/06/18 0000 Signed Impressions: Service Date/Time: Saturday, January 06, 2018 15:27 - CONCLUSION: Generalized edema with minimal enhancement in the operative bed, nonspecific. No evidence rales myelitis. Antonio Cole MD FACR Chest X-Ray 01/05/18 0600 Signed Impressions: Service Date/Time: Friday, January 05, 2018 09:18 - CONCLUSION: 1. No acute cardiopulmonary findings. Fausto Cole MD Lower Extremity CT 01/04/18 0000 Signed Impressions: Service Date/Time: Thursday, January 04, 2018 17:37 - CONCLUSION: 1. Soft tissue ulcer in the lateral proximal forefoot with subcutaneous air extending to the base of the fourth digit. No definite osseous abnormality to suggest osteomyelitis. Consider MRI examination if there is continued clinical concern. Giorgi Rider MD Foot X-Ray 01/04/18 0000 Signed Impressions: Service Date/Time: Thursday, January 04, 2018 12:43 - CONCLUSION: Negative for acute process. Antonio Cole MD FACR Other Results Microbiology Date/Time Source Procedure Growth Status 01/09/18 21:44 Blood Peripheral Aerobic Blood Culture - Final NO GROWTH IN 5 DAYS Complete 01/09/18 21:44 Blood Peripheral Anaerobic Blood Culture - Final NO GROWTH IN 5 DAYS Complete 01/05/18 17:05 Wound Foot Fungal Smear - Final NO FUNGAL ELEMENTS SEEN. Resulted 01/05/18 17:05 Wound Foot Fungal Culture - Preliminary NO GROWTH IN 1 WEEK Resulted Objective Remarks Right dorsal fourth metatarsal ulceration noted with exposed fourth metatarsal head, fibronecrotic base noted with serous drainage, no fluctuance or crepitance noted, no purulent drainage noted upon compression. Right fourth digit amputation noted Dressing intact to right foot Medications and IVs Current Medications Medications (Trade) Dose Ordered Sig/Soco Route Start Time Stop Time Status Last Admin Sodium Chloride 1,000 ml @ 70 mls/hr [id number] IV 01/04/18 15:00 01/13/18 23:17 (Prinivil) 10 mg DAILY PO 01/05/18 09:00 01/14/18 09:18 (Neurontin) 300 mg TID PO 01/04/18 18:00 01/14/18 12:16 (Protonix) 20 mg DAILY PO 01/05/18 09:00 01/14/18 09:17 (Plavix) 75 mg DAILY PO 01/08/18 09:00 01/14/18 09:18 (NovoLOG MIX 70/ 30 INJ) 30 units BID@0800,1700 SQ 01/06/18 17:00 01/11/18 18:34 (NovoLOG SUPPLEMENTAL SCALE) 1 ACHS SLIDING SCALE SQ 01/06/18 12:00 01/13/18 21:49 (Norvasc) 5 mg DAILY PO 01/08/18 09:00 01/14/18 09:18 (Catapres) 0.1 mg Q4H PRN PO 01/07/18 15:45 01/13/18 04:46 (Trixie-Colace) 1 tab BID PO 01/08/18 15:00 01/12/18 08:48 (Milk Of Magnesia Liq) 30 ml Q12H PRN PO 01/08/18 14:30 (Senokot) 17.2 mg Q12H PRN PO 01/08/18 14:30 (Dulcolax Supp) 10 mg DAILY PRN RECTAL 01/08/18 14:30 (Lactulose Liq) 30 ml DAILY PRN PO 01/08/18 14:30 (Miralax) 17 gm DAILY PO 01/09/18 09:00 Ampicillin Sodium/ Sulbactam Sodium 3 gm/Sodium Chloride 100 ml @ 200 mls/hr Q6H IV 01/08/18 17:00 01/14/18 11:10 (Tylenol) 650 mg Q4H PRN PO 01/09/18 20:45 01/14/18 04:16 (Narcan Inj) 0.4 mg UNSCH PRN IV PUSH 01/10/18 11:00 Lactated Ringer's 1,000 ml @ 30 mls/hr Q24H PRN IV 01/12/18 02:30 01/15/18 02:29 01/12/18 10:55 Sodium Chloride 500 ml @ 30 mls/hr [id number] PRN IV 01/12/18 02:30 01/15/18 02:29 01/12/18 10:55 (Betadine 5% Antisepsis Kit) 1 applic GLOBAL COORDINATOR PRN EACH NARE 01/12/18 02:30 01/15/18 02:29 (Chlorhexidine 2% Cloth) 3 pack GLOBAL COORDINATOR PRN TOPICAL 01/12/18 02:30 01/15/18 02:29 (Aspirin) 325 mg DAILY PO 01/13/18 09:00 01/14/18 09:17 (Lipitor) 40 mg HS PO 01/12/18 21:00 01/13/18 21:44 (Roxicodone) 5 mg Q4H PRN PO 01/12/18 16:30 (Dilaudid) 2 mg Q4H PRN PO 01/12/18 16:30 01/14/18 12:17 (Morphine Inj) 2 mg Q1H PRN IV PUSH 01/12/18 16:30 01/13/18 04:46 (Lovenox Inj) 40 mg Q24H SQ 01/13/18 16:00 (Santyl Oint) 1 applic DAILY TOPICAL 01/14/18 09:00 Assessment and Plan Assessment and Plan 42-year-old male with right foot dorsal wound with exposed fourth metatarsal head Patient examined and evaluated with all questions answered with family present bedside To OR today for fourth metatarsal head resection and wound VAC placement Consent to read right fourth metatarsal head resection with wound VAC placement Consent signed Right foot marked Patient has remained N.p.o. after midnight Patient will need to be dc'd with wound vac and home health care Ruth Glass DPM January 14, 2018 16:50
[2018-01-14] MEDS ORDERED: BUPIVACAINE HCL PF 0.5% 30 ML VIAL ONE (17:16)
--- NOTE | 2018-01-14 17:19 | MP ---
cc: Ruth Glass DPM, Jessica I DPM DATE: 01/14/2018 SURGEON: Ruth Glass DPM LEAD CASTER: None. PREOPERATIVE DIAGNOSIS: Right first metatarsal osteomyelitis, right first metatarsal ulcer. POSTOPERATIVE DIAGNOSIS: Right first metatarsal osteomyelitis, right first metatarsal ulcer. PROCEDURE PERFORMED: Right first metatarsal head resection. HEMOSTASIS: None. ESTIMATED BLOOD LOSS: 30 mL MATERIALS: 2-0 Vicryl, 2-0 Prolene. INJECTABLES: 10 mL of 0.5% Marcaine plain infiltrated about the right foot in a Bonds block fashion. COMPLICATIONS: None. INDICATIONS FOR PROCEDURE: The patient is a 42-year-old male who was revascularized by interventional radiology in anticipation for first metatarsal head resection. The patient understands all risks and benefits associated with the procedure. The patient recently underwent hallux amputation and now has a nonhealing ulceration with exposed bone. I discussed with family present at bedside. Consent signed. Marked the right lower extremity. Once again, the patient understands all complications, benefits and alternatives associated with the procedure. DESCRIPTION OF PROCEDURE: The patient was brought back to the operating room, placed on the operating room table in a supine position. General anesthesia was then induced. Right foot was prepped and scrubbed in the usual sterile fashion. A local infiltrate of 0.5% Marcaine plain was infiltrated about the right foot. An elliptical incision was then made, excising right ulceration noted to first metatarsal head. This incision was deepened through skin and subcutaneous tissue with care to retract all vital neurovascular structures and the ulcer was excised in toto. The site was debrided of all nonviable necrotic tissue. Periosteum was stripped from the first metatarsal head and it was reflected. Sagittal saw was utilized to resect the first metatarsal head. This was passed off the field and sent to pathology. The site was copiously irrigated with 3 liters of normal saline. Following irrigation, proximal clearing margins were taken. First metatarsal head sent to path and micro. Soft tissue was sent to micro. Site was then copiously irrigated. First metatarsal was smoothed with rasp. There were no sharp edges. Bovie cautery was utilized as necessary to ligate and cauterize all bleeders. The site was closed. First, subcutaneous tissue with 2-0 Vicryl, skin was closed with 3-0 Prolene. Surgicel was applied to the site, which will be removed tomorrow. 4 x 4s, Elan, ABD, Toni was applied to right foot. The patient tolerated procedure and anesthesia well. He was transferred from the OR to PACU with vital signs stable and neurovascular status intact to the right foot. CHERISE Meier/ , 04:55 PM , 05:18 PM
--- NOTE | 2018-01-14 18:29 | HHI.PR ---
Immediate Post Op Note Procedure Date: January 14, 2018 Pre Op Diagnosis: Right foot dorsal ulcer with exposed 4th met head, OM Post Op Diagnosis: Right foot dorsal ulcer with exposed 4th met head, OM Surgeon: Ruth Glass [employer] Supervisor(s): None Procedure: Right fourth met head resection with wound vac placement Findings: None Additional Information: None Complications: None Specimen(s) removed: Right fourth met head clearing margin for path and micro Right fourth metatarsal head for path Soft tissue right foot for micro Estimated blood loss: 5cc Anesthesia: General Drains: None IVF Patient to: PACU Patient Condition: Good (NVS intact to right foot digits 1-3, 5) Ruth lGass DPM January 14, 2018 18:29
[2018-01-14] MEDS ORDERED: Post-op Orders (for Pharmacy) XX ONE (18:30)
[2018-01-14] MEDS ORDERED: DO NOT ADM ANY ANTICOAGULANT DRUGS PRN (18:30)
[2018-01-14 20:00] VITALS: BP 131/71; PULSE 105; RESP 20; TEMP 99.3; O2SAT 95
[2018-01-14] MEDS: ATORVASTATIN 40 MG TAB PO SCH (20:30)
--- NOTE | 2018-01-14 21:01 | RADRPT ---
EXAM DATE: 01/14/2018 8:50 PM EDT AGE/SEX: 42 years / Male INDICATIONS: Post op right foot, digit amputation. CLINICAL DATA: This is the patient's initial encounter. Patient reports that signs and symptoms have been present for 1 day and indicates a pain score of 3/10. MEDICAL/SURGICAL HISTORY: None. None. COMPARISON: [facility] – [place], FOOT RIGHT COMPLETE ([id number]), 01/04/2018. . FINDINGS: Postoperative changes from amputation of the fourth digit in the mid metatarsal region. No evidence o f focal bony resorption or radiopaque foreign body. A monitoring lead superimposes upon the midfoot c ausing some minimal obscuration. No suspicious findings seen. Remainder of the osseous structures of the foot are intact. CONCLUSION: Expected postoperative findings from fourth digit mid metatarsal amputation. Electronically signed by: Franklin Soni MD 01/14/2018 8:59 PM EDT
[2018-01-14] MEDS ORDERED: ONDANSETRON ODT 4 MG TAB PO PRN (21:45)
[2018-01-15] VITALS (11 sets, daily range): BP systolic 101–130; BP diastolic 58–75; PULSE 88–103; RESP 18–20; TEMP 98.1–99.8; O2SAT 91–99
[2018-01-15] MEDS: AMPICILLIN-SULBACTAM INJ 3 GM in SODIUM CHLORIDE 0.9% INJ 100 ML IV SCH ×4 (05:06→23:00)
[2018-01-15] MEDS: amLODIPine BESYLATE 5 MG TAB PO SCH (08:58)
[2018-01-15] MEDS: HYDROmorphone HCL 2 MG TAB PO PRN ×2 (08:58→20:54)
[2018-01-15] MEDS: LISINOPRIL 10 MG TAB PO SCH (08:58)
[2018-01-15] MEDS: PANTOPRAZOLE SOD 20 MG DELAYED RELEASE TAB PO SCH (08:58)
[2018-01-15] MEDS: GABAPENTIN 300 MG CAP PO SCH ×3 (08:58→17:45)
[2018-01-15] MEDS: POLYETHYLENE GLYCOL 17 GM PKG PO SCH ×2 (08:59→10:22)
[2018-01-15] MEDS: ASPIRIN 325 MG TAB PO SCH (08:59)
[2018-01-15] MEDS: DOCUSATE SODIUM 50 MG/SENNA 8.6 MG TAB PO SCH ×2 (08:59→20:54)
[2018-01-15] MEDS: CLOPIDOGREL 75 MG TAB PO SCH (08:59)
[2018-01-15] MEDS: INSULIN ASPAR PROT 70/30 1,000 UNITS/10 ML VIAL SQ SCH ×2 (09:00→17:44)
[2018-01-15] MEDS: INSULIN ASPART SUPPLEMENTAL SCALE SQ SCH ×4 (09:00→20:54)
[2018-01-15] MEDS: COLLAGENASE OINT 30 GM TUBE TOPICAL SCH (09:04)
[2018-01-15] MEDS: SODIUM CHLOR 0.9% 1000 ML INJ 1,000 ML IV SCH (09:04)
--- NOTE | 2018-01-15 09:54 | HHI.PR ---
Subjective Remarks in no acute distress. pain is controlled. no fever. no new complaints. blood sugar trend noted. d/w the RN. Objective Vitals Vital Signs Date Time Temp Pulse Resp B/P (MAP) Pulse Ox O2 Delivery O2 Flow Rate FiO2 01/15/18 07:40 98 01/15/18 07:00 Room Air 01/15/18 06:01 99.5 98 20 130/73 (92) 95 01/15/18 00:00 99.3 97 20 118/69 (85) 95 01/14/18 20:00 Room Air 01/14/18 20:00 99.3 105 20 131/71 (91) 95 01/14/18 18:50 92 14 125/64 (84) 100 Room Air 01/14/18 18:30 95 14 122/63 (82) 100 Room Air 01/14/18 18:24 99.0 100 14 133/68 (89) 100 Room Air 01/14/18 15:00 Room Air 01/14/18 12:00 97.9 98 16 164/91 (115) 95 01/14/18 11:00 Room Air 01/14/18 10:47 92 21 I/O 01/14/18 01/14/18 01/14/18 01/15/18 01/15/18 01/15/18 07:00 15:00 23:00 07:00 15:00 23:00 Intake Total 1530 ml 400 ml 620 ml Output Total 750 ml 1245 ml 1600 ml Balance 780 ml -845 ml -980 ml Intake Oral 330 ml 420 ml IV Total 1200 ml 200 ml Other 400 ml Output Urine Total 750 ml 1225 ml 1600 ml Estimated Blood Loss 20 ml # Bowel Movements 0 Result Diagram: 01/11/18 0340 01/11/18 0340 Imaging Last Impressions Foot X-Ray 01/14/18 0000 Signed Impressions: CONCLUSION: Expected postoperative findings from fourth digit mid metatarsal amputation. Upper Extremity Ultrasound 01/13/18 0000 Signed Impressions: CONCLUSION: 1. No evidence of DVT. Lower Extremity Ultrasound 01/06/18 0000 Signed Impressions: Service Date/Time: Saturday, January 06, 2018 17:05 - CONCLUSION: No DVT. Gibson Isaac MD Foot MRI 01/06/18 0000 Signed Impressions: Service Date/Time: Saturday, January 06, 2018 15:27 - CONCLUSION: Generalized edema with minimal enhancement in the operative bed, nonspecific. No evidence rales myelitis. Antonio Cole MD FACR Chest X-Ray 01/05/18 0600 Signed Impressions: Service Date/Time: Friday, January 05, 2018 09:18 - CONCLUSION: 1. No acute cardiopulmonary findings. Fausto Cole MD Lower Extremity CT 01/04/18 0000 Signed Impressions: Service Date/Time: Thursday, January 04, 2018 17:37 - CONCLUSION: 1. Soft tissue ulcer in the lateral proximal forefoot with subcutaneous air extending to the base of the fourth digit. No definite osseous abnormality to suggest osteomyelitis. Consider MRI examination if there is continued clinical concern. Giorgi Rider MD Objective Remarks GENERAL: This is a well-nourished, well-developed patient, in no apparent distress. CARDIOVASCULAR: Regular rate and regular rhythm without murmurs, gallops, or rubs. RESPIRATORY: Clear to auscultation. Breath sounds equal bilaterally. No wheezes , rales, or rhonchi. GASTROINTESTINAL: Abdomen soft, non-tender, nondistended. Normal, active bowel sounds MUSCULOSKELETAL: right foot covered with clean dressing. NEURO: Alert & Oriented x4 to person, place, time, situation. Moves all ext x4 Procedures ANGIOGRAM 01-06 Moe Cullen MD DATE OF OPERATION: PREOPERATIVE DIAGNOSIS: Right lower extremity tissue loss, peripheral vascular disease. POSTOPERATIVE DIAGNOSIS: Right lower extremity tissue loss, peripheral vascular disease. PROCEDURE PERFORMED: 1. Aortogram with right lower extremity angiogram. 2. Right SFA and popliteal artery angioplasty with 5 mm balloon. 3. Left common femoral artery Angio-Seal. OPERATING SURGEON: Moe Cullen MD ANESTHESIA: Local with sedation. INDICATIONS: Mr. Garibay is a 42-year-old gentleman with right lower extremity tissue loss. He is taken to the operating room for angiographic evaluation and potential treatment. There was no prior catheter-based imaging available for my review. DESCRIPTION OF PROCEDURE: Informed consent was obtained from the patient. He was taken to the operating room and placed supine on the operating table. An appropriate timeout was taken to ensure the patient's identity, the operative site and planned procedure. The administration of antibiotics was not necessary as this is a clean procedure without the planned implantation of any foreign object. Everyone in the room agreed with timeout and we proceeded. His bilateral groins prepped and draped. Left groin was anesthetized with 1% lidocaine. A 21-gauge micropuncture needle was used to access the left common femoral artery, was exchanged using Seldinger technique through micropuncture sheath, which a 0.035 Glidewire was introduced. Micropuncture sheath was exchanged for a 4-Prydeinig sheath. A VCF catheter was placed over the wire and through the sheath and aortogram, pelvic arteriogram was obtained. The Glidewire was reintroduced and navigated down to the right common femoral artery and the VCF catheter was advanced over this and a right lower extremity arteriogram was obtained. The patient was systemically heparinized with 5000 units of IV Heparin. A 0.035 Ceballos wire was introduced down to the mid SFA and the VCF catheter and 4-Prydeinig sheath were removed and a 6-Prydeinig 55 cm Dimitry sheath was introduced. A CXI catheter was placed over the wire into the sheath and the wire was exchanged for a PEOPLESOFT ADMINISTRATOR wire. Using the PEOPLESOFT ADMINISTRATOR wire and CXI catheter we were able to navigate through the SFA lesion and the popliteal lesion. Both of these were angioplastied with a 5 x 200 and 5 x 80 balloon, respectively. The completion angiogram showed excellent result on recoil extravasation. We then did advance the catheter down to the popliteal artery. An angiogram was obtained. The wire, catheter and sheath were removed and the groin was closed with Angio-Seal. There were no complications. I was present and scrubbed for the entire procedure. INTERPRETATION OF IMAGES: The patient has a patent terminal aorta, common iliac arteries, hypogastric arteries and external iliac arteries, none of which have any hemodynamically significant stenoses. The right common femoral artery and profunda are patent without any hemodynamically significant stenosis. The proximal SFA is patent. The mid SFA has high-grade diffuse stenosis that was successfully angioplastied and the popliteal artery had a similar high-grade diffuse stenosis that was successfully angioplastied. The below knee popliteal artery occludes and there was no posterior tibial artery or peroneal artery proximally. The perigeniculate collaterals give rise to the posterior tibial artery in the mid to distal calf. , 09:14 AM Masoud Gates DPM DATE OF OPERATION: 01/05/2018 PREOPERATIVE DIAGNOSIS: Right fourth digit gangrene, abscess, diabetic foot infection. POSTOPERATIVE DIAGNOSIS: Right fourth digit gangrene, abscess, diabetic foot infection. PROCEDURE PERFORMED: Right fourth digit amputation, incision and drainage deep, right foot. INTRAOPERATIVE FINDINGS: Minimal bleeding. Foul odor at level of amputation site. S SPECIMENS: Fourth digit for pathology. Deep culture at amputation site for micro. ESTIMATED BLOOD LOSS: Less than 30 mL ANESTHESIA: General. DRAINS: None. TOURNIQUET: None. DISPOSITION: Returned to floor for vascular intervention and monitor of foot. May need wound VAC versus repetitive debridements versus amputation at a later date. JUSTIFICATION FOR PROCEDURE: A 42-year-old diabetic male with a history of smoking, was admitted. CT showed gas within the tissue at the base of the fourth digit. The patient was planned for vascular intervention; however, we wished to eradicate infection or at least debulk the infection first. The patient was educated on risks and benefits, need for more surgery, loss of limb. No guarantees were given or implied regarding the outcome. PROCEDURE IN DETAIL: Under mild sedation, the patient was brought into the operating room, placed on the operating table in supine position. Following the induction of general anesthesia, the patient's right lower extremity was scrubbed, prepped and draped in the usual aseptic fashion. The foot was elevated and examined. There was noted to be a necrotic, delayed capillary fill time, a putrid-smelling right fourth digit. A fishmouth mouth type incision was made disarticulating the digit down to the level of the joint. There were gas bubbles within the tissue. There was purulent drainage. There was a full-thickness eschar of the dorsum of the foot that had an odor. This was sharply unroofed down to the tendon sheath with exposed fourth metatarsal. There was no obvious signs of tracking deep within the plantar aspect of the foot or along the dorsal aspect of the foot. This was flushed with copious amounts of normal saline. Minimal Bovie and ligation was needed throughout the case. The wound was packed open, soft bandage applied. The patient was transferred from OR to PACU with all vital signs stable. The patient will be monitored after a vascular attempt. Overall prognosis is poor given the history of smoking and diabetes. I will see the patient within 1-2 days. Masoud Gates, DPM - R AK pop to PT bypass with cryo/ R PT endarterectomy with patch angioplasty. - Right foot fourth metatarsal head resection with wound VAC placement. Medications and IVs Inpatient Medications Acetaminophen (Tylenol) 650 mg Q4H PRN PO temp > 101 Last administered on 04:16; Start 01/09/18 at 20:45 Amlodipine Besylate (Norvasc) 5 mg DAILY PO Last administered on 01/15/18 08: 58; Start 01/08/18 at 09:00 Ampicillin Sodium/ Sulbactam Sodium 3 gm/Sodium Chloride 100 ml @ 200 mls/hr Q6H IV Last administered on 01/15/18at 05:06; Start 01/08/18 at 17:00 Aspirin (Aspirin Chew) 324 mg ONCE ONCE CHEW Last administered on 01/04/18at 13 :33; Start 01/04/18 at 13:15; Stop 01/04/18 at 13:16; Status DC Aspirin (Aspirin) 325 mg DAILY PO Last administered on 01/15/18at 08:59; Start 01/13/18 at 09:00 Aspirin (Ecotrin Ec) 81 mg DAILY PO Last administered on 01/11/18at 09:07; Start 01/06/18 at 09:00; Stop 01/12/18 at 17:16; Status DC Atorvastatin Calcium (Lipitor) 40 mg HS PO Last administered on 01/14/18at 20:30 ; Start 01/12/18 at 21:00 Bisacodyl (Dulcolax Supp) 10 mg DAILY PRN RECTAL SEVERE CONSITIPATION; Start at 14:30 Cefepime HCl 2000 mg/Sodium Chloride 100 ml @ 200 mls/hr Q12H IV Last administered on 01/05/18at 06:04; Start 01/04/18 at 18:00; Stop 01/05/18 at 12:37 ; Status DC Chlorhexidine Gluconate (Chlorhexidine 2% Cloth) 3 pack ASSISTANT PRESSMAN PRN TOPICAL SEE LABEL COMMENTS; Start 01/12/18 at 02:30; Stop 01/15/18 at 02:29; Status DC Clonidine (Catapres) 0.1 mg Q4H PRN PO SBP>160, DBP>90 Last administered on at 04:46; Start 01/07/18 at 15:45 Clopidogrel Bisulfate (Plavix) 75 mg DAILY PO Last administered on 01/15/18at 08 :59; Start 01/08/18 at 09:00 Collagenase (Santyl Oint) 1 applic DAILY TOPICAL Last administered on at 09:04; Start 01/14/18 at 09:00 Dextrose (D25w Inj) 10 ml ONCE ONCE IV PUSH Last administered on 01/04/18at 14: 28; Start 01/04/18 at 13:45; Stop 01/04/18 at 13:46; Status DC Dextrose (D50w (Vial) Inj) 50 ml UNSCH PRN IV PUSH HYPOGLYCEMIA-SEE COMMENTS; Start 01/04/18 at 17:45; Stop 01/06/18 at 10:41; Status DC Enoxaparin Sodium (Lovenox Inj) 40 mg Q24H SQ ; Start 01/15/18 at 18:00 Gabapentin (Neurontin) 300 mg TID PO Last administered on 01/15/18at 08:58; Start 01/04/18 at 18:00 Glucagon (Glucagon Inj) 1 mg UNSCH PRN OTHER HYPOGLYCEMIA-SEE COMMENTS; Start 01/04/18 at 17:45; Stop 01/06/18 at 10:41; Status DC Hydromorphone HCl (Dilaudid) 2 mg Q4H PRN PO PAIN SCALE 6 TO 10 Last administered on 01/15/18at 08:58; Start 01/12/18 at 16:30 Insulin Aspart (NovoLOG SUPPLEMENTAL SCALE) 1 ACHS SLIDING SCALE SQ Last administered on 01/15/18at 09:00; Start 01/06/18 at 12:00 Insulin Aspart Prota 70%/Aspart 30% (NovoLOG MIX 70/ 30 INJ) 30 units BID@0800, 1700 SQ Last administered on 01/15/18at 09:00; Start 01/06/18 at 17:00 Iron Sucrose 200 mg/Sodium Chloride 110 ml @ 110 mls/hr DAILY IV Last administered on 01/07/18at 12:23; Start 01/05/18 at 15:00; Stop 01/07/18 at 09:59 ; Status DC Lactated Ringer's 1,000 ml @ 30 mls/hr Q24H PRN IV SEE LABEL COMMENTS Last administered on 01/12/18at 10:55; Start 01/12/18 at 02:30; Stop 01/15/18 at 02:29 ; Status DC Lactulose (Lactulose Liq) 30 ml DAILY PRN PO SEVERE CONSITIPATION; Start at 14:30 Lisinopril (Prinivil) 10 mg DAILY PO Last administered on 01/15/18at 08:58; Start 01/05/18 at 09:00 Magnesium Hydroxide (Milk Of Magnesia Liq) 30 ml Q12H PRN PO Mild constipation ; Start 01/08/18 at 14:30 Miscellaneous Information ([facility]) ALL NURSING DEPARTME... UNSCH PRN .XX SEE LABEL COMMENTS; Start 01/14/18 at 18:30; Stop 01/15/18 at 18: 29 Miscellaneous Information ([facility] Ordered Lab Info) SPECIFIC LAB TO BE ROSALEE... ONCE ONCE .XX Last administered on 01/06/18at 12:45; Start 01/06/18 at 12:45; Stop 01/06/18 at 12:46; Status DC Miscellaneous Information ([facility] (for Pharmacy)) STAT ONCE XX ; Start 01/14/18 at 18:30; Stop 01/14/18 at 18:46; Status DC Morphine Sulfate (Morphine Inj) 2 mg Q1H PRN IV PUSH BREAKTHROUGH PAIN Last administered on 01/13/18at 04:46; Start 01/12/18 at 16:30 Naloxone HCl (Narcan Inj) 0.4 mg UNSCH PRN IV PUSH SEE LABEL COMMENTS; Start at 11:00 Ondansetron HCl (Zofran Odt) 8 mg Q6H PRN PO NAUSEA; Start 01/14/18 at 21:45 Oxycodone HCl (Roxicodone) 5 mg Q4H PRN PO PAIN SCALE 1 TO 5; Start 01/12/18 at 16:30 Oxycodone/ Acetaminophen (Percocet 7.5-325 Mg) 1 tab Q6H PRN PO PAIN SCALE 6 TO 10 Last administered on 01/10/18at 09:06; Start 01/04/18 at 18:00; Stop at 11:02; Status DC Oxycodone/ Acetaminophen (Percocet 5-325 Mg) 1 tab Q6HR PRN PO PAIN SCALE 3 TO 5; Start 01/04/18 at 18:00; Stop 01/12/18 at 18:15; Status DC Oxycodone/ Acetaminophen (Percocet 10-325 Mg) 1 tab Q6H PRN PO PAIN SCALE 6 TO 10 Last administered on 01/11/18at 18:34; Start 01/10/18 at 11:00; Stop 01/12/18 at 18:15; Status DC Pantoprazole Sodium (Protonix) 20 mg DAILY PO Last administered on 01/15/18at 08 :58; Start 01/05/18 at 09:00 Pharmacy Profile Note 0 ml @ 0 mls/hr UNSCH OTHER ; Start 01/04/18 at 18:00; Stop 01/07/18 at 14:48; Status DC Piperacillin Sod/ Tazobactam Sod 50 ml @ 100 mls/hr Q6H IV Last administered on 01/08/18at 14:55; Start 01/07/18 at 21:00; Stop 01/08/18 at 15:48; Status DC Polyethylene Glycol (Miralax) 17 gm DAILY PO ; Start 01/09/18 at 09:00 Povidone Iodine (Betadine 5% Antisepsis Kit) 1 applic ASSISTANT PRESSMAN PRN EACH NARE SEE LABEL COMMENTS; Start 01/12/18 at 02:30; Stop 01/15/18 at 02:29; Status DC Senna/Docusate Sodium (Trixie-Colace) 1 tab BID PO Last administered on at 08:48; Start 01/08/18 at 15:00 Sennosides (Senokot) 17.2 mg Q12H PRN PO Moderate constipation; Start 01/08/18 at 14:30 Sodium Chloride 500 ml @ 30 mls/hr [id number] PRN IV SEE LABEL COMMENTS Last administered on 01/12/18at 10:55; Start 01/12/18 at 02:30; Stop 01/15/18 at 02:29 ; Status DC Vancomycin HCl 1000 mg/Sodium Chloride 250 ml @ 250 mls/hr Q12H IV ; Start at 06:00; Stop 01/05/18 at 06:00; Status DC Vancomycin HCl 1250 mg/Sodium Chloride 262.5 ml @ 250 mls/hr Q12H IV Last administered on 01/06/18at 13:24; Start 01/05/18 at 01:00; Stop 01/06/18 at 15:21 ; Status DC Vancomycin HCl 1500 mg/Sodium Chloride 515 ml @ 250 mls/hr Q18H IV Last administered on 01/07/18at 05:20; Start 01/07/18 at 06:00; Stop 01/07/18 at 14:48 ; Status DC Zolpidem Tartrate (Ambien) 5 mg ONCE ONCE PO Last administered on 01/04/18at 22 :40; Start 01/04/18 at 22:15; Stop 01/04/18 at 22:16; Status DC A/P Problem List: (1) Leukocytosis ICD Code: D72.829 - Elevated white blood cell count, unspecified Status: Acute (2) Peripheral vascular disease ICD Code: I73.9 - Peripheral vascular disease, unspecified Status: Acute (3) Diabetic foot infection ICD Code: E11.628 - Type 2 diabetes mellitus with other skin complications; L08.9 - Local infection of the skin and subcutaneous tissue, unspecified Status: Acute (4) Renal insufficiency ICD Code: N28.9 - Disorder of kidney and ureter, unspecified (5) Hypertension ICD Code: I10 - Essential (primary) hypertension (6) DVT (deep venous thrombosis) ICD Code: I82.409 - Acute embolism and thrombosis of unspecified deep veins of unspecified lower extremity Assessment and Plan A/P Sepsis secondary to diabetic right foot infection with dry gangrene 4th digit with possible abscess on exam and possible underlying OM -s/p right fourth toe amputation and I/D of the right foot -s/p Right foot fourth metatarsal head resection with wound VAC placement. -Blood cultures negative. -initial wound culture with MSSA and Enterococcus Faecalis -on Unasyn per ID. -podiatry and ID following. Suspected dry gangrene Peripheral vascular disease -S/P angioplasty May [address] Cullen -s/p R AK pop to PT bypass with cryo/R PT endarterectomy with patch angioplasty on 01/12. -continue aspirin/ plavix and statin -management per vascular surgery left arm swelling/pain; venous doppler negative for DVT; continue with pain control. Acute kidney injury superimposed on CKD - improving w/ IVF -will monitor. Microcytic anemia- chronic disease? -will check the stool for blood-pending. -monitor H/H Diabetes type 2 -Hold metformin for now, sliding scale with Accu-Chek -resumed insulin - -changed the diet to 1800 calos ADA -continue to monitor. medical noncompliance due to lack of insurance and uncontrolled diabetes Diabetic neuropathy -Continue on gabapentin Hypertension- overall better. -Continue lisinopril and Norvasc. -will monitor. DVT prophylaxis with subq Lovenox. Discharge Planning when cleared by consultants. Problem Qualifiers (1) Leukocytosis: Qualified Codes: D72.829 - Elevated white blood cell count, unspecified Katrina Ruiz MD January 15, 2018 09:54
[2018-01-15 10:06] LABS: BASOPHIL % 0.2 % (0.0-2.0); LYMPH % 7.1 % (9.0-44.0); LYMPHOCYTE # 1.1 TH/MM3 (1.0-4.8); MEAN CELL VOLUME 77.7 FL (80.0-100.0); MEAN CORPUSCULAR HGB CONC 32.2 % (32.0-36.0); MEAN PLATELET VOLUME 7.5 FL (7.0-11.0); MONO % 10.1 % (0.0-8.0); MONOCYTE # 1.6 TH/MM3 (0-0.9); NEUT % 82.6 % (16.0-70.0); PLATELET COUNT 400 TH/MM3 (150-450); RED BLOOD COUNT 2.44 MIL/MM3 (4.50-5.90); RED CELL DISTRIBUTION WIDTH 14.7 % (11.6-17.2); WHITE BLOOD COUNT 15.7 TH/MM3 (4.0-11.0)
[2018-01-15 10:17] LABS: HEMATOCRIT 18.9 % (39.0-51.0); HEMOGLOBIN 6.1 GM/DL (13.0-17.0)
--- NOTE | 2018-01-15 17:04 | HHI.IDPN ---
Subjective Subjective Remarks sp RIGHT LE distal bypass on 01/12/18 w/ Dr. Cullen sp Right fourth digit amputation, incision and drainage deep, right foot by Dr Riggs Antibiotics Unasyn Lines PIV with no e/o infection Past Medical History Hypertension Diabetes type 2 insulin requiring at one point Neuropathy Allergies: Coded Allergies: No Known Allergies (Verified Adverse Reaction, Unknown, 01/04/18) Objective . Vital Signs Date Time Temp Pulse Resp B/P (MAP) Pulse Ox O2 Delivery O2 Flow Rate FiO2 01/15/18 16:00 98.9 92 20 125/70 (88) 97 01/15/18 12:00 98.5 94 20 126/71 (89) 96 01/15/18 11:00 Room Air 01/15/18 08:00 98.1 103 20 114/67 (83) 91 01/15/18 07:40 98 01/15/18 07:00 Room Air 01/15/18 06:01 99.5 98 20 130/73 (92) 95 01/15/18 00:00 99.3 97 20 118/69 (85) 95 01/14/18 20:00 Room Air 01/14/18 20:00 99.3 105 20 131/71 (91) 95 01/14/18 18:50 92 14 125/64 (84) 100 Room Air 01/14/18 18:30 95 14 122/63 (82) 100 Room Air 01/14/18 18:24 99.0 100 14 133/68 (89) 100 Room Air . Laboratory Tests Test 01/15/18 07:30 White Blood Count 15.7 TH/MM3 Red Blood Count 2.44 MIL/MM3 Hemoglobin 6.1 GM/DL Hematocrit 18.9 % Mean Corpuscular Volume 77.7 FL Mean Corpuscular Hemoglobin 25.0 PG Mean Corpuscular Hemoglobin Concent 32.2 % Red Cell Distribution Width 14.7 % Platelet Count 400 TH/MM3 Mean Platelet Volume 7.5 FL Neutrophils (%) (Auto) 82.6 % Lymphocytes (%) (Auto) 7.1 % Monocytes (%) (Auto) 10.1 % Eosinophils (%) (Auto) 0.0 % Basophils (%) (Auto) 0.2 % Neutrophils # (Auto) 13.0 TH/MM3 Lymphocytes # (Auto) 1.1 TH/MM3 Monocytes # (Auto) 1.6 TH/MM3 Eosinophils # (Auto) 0.0 TH/MM3 Basophils # (Auto) 0.0 TH/MM3 CBC Comment DIFF FINAL Differential Comment Microbiology Date/Time Source Procedure Growth Status 01/15/18 10:10 Stool Stool Stool Occult Blood (ESTRADA) - Final HEMOCCULT NEGATIVE Complete 01/14/18 18:17 Wound Foot Fungal Smear - Final NO FUNGAL ELEMENTS SEEN. Resulted 01/14/18 18:17 Wound Foot Fungal Culture Pending Resulted 01/14/18 18:17 Wound Foot Acid Fast Stain Pending Worksheet 01/14/18 18:17 Wound Foot Mycobacterial Culture Pending Worksheet 01/14/18 18:17 Wound Foot Gram Stain - Final Resulted 01/14/18 18:17 Wound Culture - Preliminary Staphylococcus Species Resulted 01/14/18 18:17 Wound Foot Fungal Smear - Final NO FUNGAL ELEMENTS SEEN. Resulted 01/14/18 18:17 Wound Foot Fungal Culture Pending Resulted 01/14/18 18:17 Wound Foot Acid Fast Stain Pending Received 01/14/18 18:17 Wound Foot Mycobacterial Culture Pending Received 01/14/18 18:17 Wound Foot Gram Stain - Final Resulted 01/14/18 18:17 Wound Culture - Preliminary Gram Positive Cocci Resulted Imaging Last Impressions Foot X-Ray 01/14/18 0000 Signed Impressions: CONCLUSION: Expected postoperative findings from fourth digit mid metatarsal amputation. Upper Extremity Ultrasound 01/13/18 0000 Signed Impressions: CONCLUSION: 1. No evidence of DVT. Lower Extremity Ultrasound 01/06/18 0000 Signed Impressions: Service Date/Time: Saturday, January 06, 2018 17:05 - CONCLUSION: No DVT. Gibson Isaac MD Foot MRI 01/06/18 0000 Signed Impressions: Service Date/Time: Saturday, January 06, 2018 15:27 - CONCLUSION: Generalized edema with minimal enhancement in the operative bed, nonspecific. No evidence rales myelitis. Antonio Cole MD FACR Chest X-Ray 01/05/18 0600 Signed Impressions: Service Date/Time: Friday, January 05, 2018 09:18 - CONCLUSION: 1. No acute cardiopulmonary findings. Fausto Cole MD Lower Extremity CT 01/04/18 0000 Signed Impressions: Service Date/Time: Thursday, January 04, 2018 17:37 - CONCLUSION: 1. Soft tissue ulcer in the lateral proximal forefoot with subcutaneous air extending to the base of the fourth digit. No definite osseous abnormality to suggest osteomyelitis. Consider MRI examination if there is continued clinical concern. Giorgi Rider MD Physical Exam CONSTITUTIONAL/GENERAL: This is an obese male patient, in no apparent distress. Awake and alert. Appears comfortable. SKIN: No jaundice, rashes, or lesions. HEENT: NC/AT. EOMI. Sclera anicteric. No nasal bleeding or discharge. MMM. RESPIRATORY: Nonlabored. Clear to auscultation bilaterally. No wheezing or rhonchi noted. CARDIOVASCULAR: Regular rate and rhythm without any murmurs, rubs or gallops. MUSCULOSKELETAL: Extremities without clubbing, cyanosis, R foot with VAC in place Mild RUE edema NEUROLOGICAL: Awake and alert. Motor and sensory grossly within normal limits. Follows commands. Clear speech. Moves all extremities. PSYCHIATRIC: No obvious anxiety/depression. no apparent hallucinations or other psychotic thought process. Calm and pleasant. Cooperative with exam. PIV with no e/o infection Assessment & Plan Remarks DFI, suspected osteomyelitis of R foot, 4 th MT - P path - clx + staph spp R 4th toe gangrene sp amputation surface clx growing MSSA and Enterococcus GPC in op clx Confirmed PVD sp revasc'n RUE DVT cont Unasyn fu clx anticipate IV abx p dc final abx choice and duration per final clx and path PICC YARA jara and his Luis MiguelJaneen A. MD January 15, 2018 17:04
[2018-01-15] MEDS: ENOXAPARIN SODIUM 40 MG/0.4 ML SYRINGE SQ SCH (17:46)
[2018-01-15] MEDS ORDERED: SODIUM CHLOR 0.9% 250 ML INJ 250 ML IV SCH (18:00)
[2018-01-15] MEDS ORDERED: FUROSEMIDE 20 MG/2 ML VIAL IV PUSH SCH (18:00)
[2018-01-15] MEDS: ATORVASTATIN 40 MG TAB PO SCH (20:54)
--- NOTE | 2018-01-15 21:09 | HHI.PR ---
Subjective Remarks Patient resting comfortably, no concerns at this time. Denies nausea vomiting fevers or chills. Denies pain to right foot. Wound VAC on and functioning at 125 mm per mercury. Objective Vital Signs Date Time Temp Pulse Resp B/P (MAP) Pulse Ox O2 Delivery O2 Flow Rate FiO2 01/15/18 19:59 98.9 95 20 106/75 98 01/15/18 19:44 21 01/15/18 19:44 99.8 97 18 103/70 99 01/15/18 16:00 98.9 92 20 125/70 (88) 97 01/15/18 12:00 98.5 94 20 126/71 (89) 96 01/15/18 11:00 Room Air 01/15/18 08:00 98.1 103 20 114/67 (83) 91 01/15/18 07:40 98 01/15/18 07:00 Room Air 01/15/18 06:01 99.5 98 20 130/73 (92) 95 01/15/18 00:00 99.3 97 20 118/69 (85) 95 I/O 01/14/18 01/14/18 01/14/18 01/15/18 01/15/18 01/15/18 07:00 15:00 23:00 07:00 15:00 23:00 Intake Total 1530 ml 400 ml 620 ml 480 ml Output Total 750 ml 1245 ml 1600 ml Balance 780 ml -845 ml -980 ml 480 ml Intake Oral 330 ml 420 ml 480 ml IV Total 1200 ml 200 ml Other 400 ml Output Urine Total 750 ml 1225 ml 1600 ml Estimated Blood Loss 20 ml # Voids 4 # Bowel Movements 0 Result Diagram: 01/15/18 0730 01/11/18 0340 Imaging Last Impressions Foot X-Ray 01/14/18 0000 Signed Impressions: CONCLUSION: Expected postoperative findings from fourth digit mid metatarsal amputation. Upper Extremity Ultrasound 01/13/18 0000 Signed Impressions: CONCLUSION: 1. No evidence of DVT. Lower Extremity Ultrasound 01/06/18 0000 Signed Impressions: Service Date/Time: Saturday, January 06, 2018 17:05 - CONCLUSION: No DVT. Gibson Isaac MD Foot MRI 01/06/18 0000 Signed Impressions: Service Date/Time: Saturday, January 06, 2018 15:27 - CONCLUSION: Generalized edema with minimal enhancement in the operative bed, nonspecific. No evidence rales myelitis. Antonio Cole MD FACR Chest X-Ray 01/05/18 0600 Signed Impressions: Service Date/Time: Friday, January 05, 2018 09:18 - CONCLUSION: 1. No acute cardiopulmonary findings. Fausto Cole MD Lower Extremity CT 01/04/18 0000 Signed Impressions: Service Date/Time: Thursday, January 04, 2018 17:37 - CONCLUSION: 1. Soft tissue ulcer in the lateral proximal forefoot with subcutaneous air extending to the base of the fourth digit. No definite osseous abnormality to suggest osteomyelitis. Consider MRI examination if there is continued clinical concern. Giorgi Rider MD Procedures Status post 1 day right fourth metatarsal head resection with wound VAC placement Other Results Microbiology Date/Time Source Procedure Growth Status 01/09/18 21:44 Blood Peripheral Aerobic Blood Culture - Final NO GROWTH IN 5 DAYS Complete 01/09/18 21:44 Blood Peripheral Anaerobic Blood Culture - Final NO GROWTH IN 5 DAYS Complete 01/15/18 10:10 Stool Stool Stool Occult Blood (ESTRADA) - Final HEMOCCULT NEGATIVE Complete 01/14/18 18:17 Wound Foot Fungal Smear - Final NO FUNGAL ELEMENTS SEEN. Resulted 01/14/18 18:17 Wound Foot Fungal Culture Pending Resulted Objective Remarks 01/15: Dressing intact with wound VAC functioning at 125 mm per mercury. Active passive dorsiflexion plantarflexion of digits 1-3 and 5. 01/14: Right dorsal fourth metatarsal ulceration noted with exposed fourth metatarsal head, fibronecrotic base noted with serous drainage, no fluctuance or crepitance noted, no purulent drainage noted upon compression. Right fourth digit amputation noted Dressing intact to right foot Medications and IVs Current Medications Medications (Trade) Dose Ordered Sig/Soco Route Start Time Stop Time Status Last Admin Sodium Chloride 1,000 ml @ 70 mls/hr [id number] IV 01/04/18 15:00 01/15/18 09:04 (Prinivil) 10 mg DAILY PO 01/05/18 09:00 01/15/18 08:58 (Neurontin) 300 mg TID PO 01/04/18 18:00 01/15/18 17:45 (Protonix) 20 mg DAILY PO 01/05/18 09:00 01/15/18 08:58 (Plavix) 75 mg DAILY PO 01/08/18 09:00 01/15/18 08:59 (NovoLOG MIX 70/ 30 INJ) 30 units BID@0800,1700 SQ 01/06/18 17:00 01/15/18 17:44 (NovoLOG SUPPLEMENTAL SCALE) 1 ACHS SLIDING SCALE SQ 01/06/18 12:00 01/15/18 17:45 (Norvasc) 5 mg DAILY PO 01/08/18 09:00 01/15/18 08:58 (Catapres) 0.1 mg Q4H PRN PO 01/07/18 15:45 01/13/18 04:46 (Trixie-Colace) 1 tab BID PO 01/08/18 15:00 01/12/18 08:48 (Milk Of Magnesia Liq) 30 ml Q12H PRN PO 01/08/18 14:30 (Senokot) 17.2 mg Q12H PRN PO 01/08/18 14:30 (Dulcolax Supp) 10 mg DAILY PRN RECTAL 01/08/18 14:30 (Lactulose Liq) 30 ml DAILY PRN PO 01/08/18 14:30 (Miralax) 17 gm DAILY PO 01/09/18 09:00 01/15/18 10:22 Ampicillin Sodium/ Sulbactam Sodium 3 gm/Sodium Chloride 100 ml @ 200 mls/hr Q6H IV 01/08/18 17:00 01/15/18 16:45 (Tylenol) 650 mg Q4H PRN PO 01/09/18 20:45 01/14/18 04:16 (Narcan Inj) 0.4 mg UNSCH PRN IV PUSH 01/10/18 11:00 (Aspirin) 325 mg DAILY PO 01/13/18 09:00 01/15/18 08:59 (Lipitor) 40 mg HS PO 01/12/18 21:00 01/15/18 20:54 (Roxicodone) 5 mg Q4H PRN PO 01/12/18 16:30 (Dilaudid) 2 mg Q4H PRN PO 01/12/18 16:30 01/15/18 20:54 (Morphine Inj) 2 mg Q1H PRN IV PUSH 01/12/18 16:30 01/13/18 04:46 (Santyl Oint) 1 applic DAILY TOPICAL 01/14/18 09:00 01/15/18 09:04 (Lovenox Inj) 40 mg Q24H SQ 01/15/18 18:00 01/15/18 17:46 (Zofran Odt) 8 mg Q6H PRN PO 01/14/18 21:45 Sodium Chloride 250 ml @ 250 mls/hr OPTIC FIBRE DRAWER IV 01/15/18 18:00 01/15/18 23:59 01/15/18 19:48 (Lasix Inj) 20 mg OPTIC FIBRE DRAWER IV PUSH 01/15/18 18:00 01/15/18 23:59 Assessment and Plan Assessment and Plan 42-year-old male with right foot dorsal wound with exposed fourth metatarsal head Patient examined and evaluated with all questions answered with family present bedside Patient will need to be DC'd with wound VAC Wound VAC to be changed bedside in 48 hours Will DC patient per podiatry after first wound VAC change and wound is reevaluated Ruth Glass DPM January 15, 2018 21:09
[2018-01-16] VITALS (8 sets, daily range): BP systolic 102–130; BP diastolic 54–87; PULSE 70–109; RESP 17–20; TEMP 97.9–99.3; O2SAT 94–98
[2018-01-16] MEDS: MORPHINE SULFATE 4 MG/ML INJ IV PUSH PRN ×2 (01:46→15:54)
[2018-01-16] MEDS: SODIUM CHLOR 0.9% 1000 ML INJ 1,000 ML IV SCH ×2 (01:50→14:10)
[2018-01-16] MEDS: AMPICILLIN-SULBACTAM INJ 3 GM in SODIUM CHLORIDE 0.9% INJ 100 ML IV SCH ×4 (05:33→22:23)
[2018-01-16 07:46] LABS: AUTOMATED NEUTROPHIL # 9.7 TH/MM3 (1.8-7.7); BASOPHIL # 0.1 TH/MM3 (0-0.2); BASOPHIL % 0.4 % (0.0-2.0); EOSINOPHIL # 0.1 TH/MM3 (0-0.4); EOSINOPHIL % 0.8 % (0.0-4.0); HEMATOCRIT 23.4 % (39.0-51.0); HEMOGLOBIN 7.8 GM/DL (13.0-17.0); LYMPH % 13.9 % (9.0-44.0); LYMPHOCYTE # 1.9 TH/MM3 (1.0-4.8); MEAN CELL VOLUME 77.7 FL (80.0-100.0); MEAN CORPUSCULAR HEMOGLOBIN 25.9 PG (27.0-34.0); MEAN CORPUSCULAR HGB CONC 33.3 % (32.0-36.0); MEAN PLATELET VOLUME 7.2 FL (7.0-11.0); MONO % 12.9 % (0.0-8.0); MONOCYTE # 1.7 TH/MM3 (0-0.9); PLATELET COUNT 425 TH/MM3 (150-450); RED BLOOD COUNT 3.01 MIL/MM3 (4.50-5.90); RED CELL DISTRIBUTION WIDTH 15.6 % (11.6-17.2); WHITE BLOOD COUNT 13.5 TH/MM3 (4.0-11.0)
[2018-01-16] MEDS: INSULIN ASPART SUPPLEMENTAL SCALE SQ SCH ×4 (08:00→21:18)
[2018-01-16] MEDS: INSULIN ASPAR PROT 70/30 1,000 UNITS/10 ML VIAL SQ SCH ×2 (08:00→18:20)
[2018-01-16] MEDS: COLLAGENASE OINT 30 GM TUBE TOPICAL SCH (09:00)
[2018-01-16] MEDS: DOCUSATE SODIUM 50 MG/SENNA 8.6 MG TAB PO SCH ×2 (09:00→21:17)
[2018-01-16] MEDS: POLYETHYLENE GLYCOL 17 GM PKG PO SCH (09:00)
[2018-01-16] MEDS: GABAPENTIN 300 MG CAP PO SCH ×3 (10:15→18:18)
[2018-01-16] MEDS: ASPIRIN 325 MG TAB PO SCH (10:15)
[2018-01-16] MEDS: amLODIPine BESYLATE 5 MG TAB PO SCH (10:15)
[2018-01-16] MEDS: CLOPIDOGREL 75 MG TAB PO SCH (10:15)
[2018-01-16] MEDS: PANTOPRAZOLE SOD 20 MG DELAYED RELEASE TAB PO SCH (10:16)
[2018-01-16] MEDS: LISINOPRIL 10 MG TAB PO SCH (10:16)
[2018-01-16] MEDS: HYDROmorphone HCL 2 MG TAB PO PRN ×3 (10:18→22:24)
--- NOTE | 2018-01-16 11:43 | HHI.PR ---
Subjective Remarks in no acute distress. complaining of some pain to the right leg. no fever or any other complaints. d/w the RN. Objective Vitals Vital Signs Date Time Temp Pulse Resp B/P (MAP) Pulse Ox O2 Delivery O2 Flow Rate FiO2 01/16/18 08:44 94 21 01/16/18 08:00 99.3 95 20 128/56 (80) 94 01/16/18 08:00 Room Air 01/16/18 04:00 97.9 101 20 113/87 (96) 96 01/16/18 00:00 98.2 97 18 126/54 (78) 96 01/16/18 00:00 Room Air 01/15/18 22:45 99.4 93 20 108/60 98 01/15/18 22:30 99.6 98 20 104/67 97 01/15/18 22:02 99.6 88 20 101/58 97 01/15/18 20:00 Room Air 01/15/18 19:59 98.9 95 20 106/75 98 01/15/18 19:44 21 01/15/18 19:44 99.8 97 18 103/70 99 01/15/18 16:00 98.9 92 20 125/70 (88) 97 01/15/18 12:00 98.5 94 20 126/71 (89) 96 I/O 01/15/18 01/15/18 01/15/18 01/16/18 01/16/18 01/16/18 07:00 15:00 23:00 07:00 15:00 23:00 Intake Total 620 ml 920 ml 2143 ml Output Total 1600 ml 800 ml Balance -980 ml 920 ml 1343 ml Intake Oral 420 ml 480 ml 360 ml IV Total 200 ml 1363 ml Packed Cells 400 ml 400 ml Blood Product IV Normal Saline Flush 40 ml 20 ml Output Urine Total 1600 ml 800 ml # Voids 4 # Bowel Movements 0 Result Diagram: 01/16/18 0708 Imaging Last Impressions Foot X-Ray 01/14/18 0000 Signed Impressions: CONCLUSION: Expected postoperative findings from fourth digit mid metatarsal amputation. Upper Extremity Ultrasound 01/13/18 0000 Signed Impressions: CONCLUSION: 1. No evidence of DVT. Lower Extremity Ultrasound 01/06/18 0000 Signed Impressions: Service Date/Time: Saturday, January 06, 2018 17:05 - CONCLUSION: No DVT. Gibson Isaac MD Foot MRI 01/06/18 0000 Signed Impressions: Service Date/Time: Saturday, January 06, 2018 15:27 - CONCLUSION: Generalized edema with minimal enhancement in the operative bed, nonspecific. No evidence rales myelitis. Antonio Cole MD FACR Chest X-Ray 01/05/18 0600 Signed Impressions: Service Date/Time: Friday, January 05, 2018 09:18 - CONCLUSION: 1. No acute cardiopulmonary findings. Fausto Cole MD Lower Extremity CT 01/04/18 0000 Signed Impressions: Service Date/Time: Thursday, January 04, 2018 17:37 - CONCLUSION: 1. Soft tissue ulcer in the lateral proximal forefoot with subcutaneous air extending to the base of the fourth digit. No definite osseous abnormality to suggest osteomyelitis. Consider MRI examination if there is continued clinical concern. Giorgi Rider MD Objective Remarks GENERAL: This is a well-nourished, well-developed patient, in no apparent distress. CARDIOVASCULAR: Regular rate and regular rhythm without murmurs, gallops, or rubs. RESPIRATORY: Clear to auscultation. Breath sounds equal bilaterally. No wheezes , rales, or rhonchi. GASTROINTESTINAL: Abdomen soft, non-tender, nondistended. Normal, active bowel sounds MUSCULOSKELETAL: right foot covered with clean dressing. NEURO: Alert & Oriented x4 to person, place, time, situation. Moves all ext x4 Procedures ANGIOGRAM - Moe Cullen MD DATE OF OPERATION: PREOPERATIVE DIAGNOSIS: Right lower extremity tissue loss, peripheral vascular disease. POSTOPERATIVE DIAGNOSIS: Right lower extremity tissue loss, peripheral vascular disease. PROCEDURE PERFORMED: 1. Aortogram with right lower extremity angiogram. 2. Right SFA and popliteal artery angioplasty with 5 mm balloon. 3. Left common femoral artery Angio-Seal. OPERATING SURGEON: Moe Cullen MD ANESTHESIA: Local with sedation. INDICATIONS: Mr. aGribay is a 42-year-old gentleman with right lower extremity tissue loss. He is taken to the operating room for angiographic evaluation and potential treatment. There was no prior catheter-based imaging available for my review. DESCRIPTION OF PROCEDURE: Informed consent was obtained from the patient. He was taken to the operating room and placed supine on the operating table. An appropriate timeout was taken to ensure the patient's identity, the operative site and planned procedure. The administration of antibiotics was not necessary as this is a clean procedure without the planned implantation of any foreign object. Everyone in the room agreed with timeout and we proceeded. His bilateral groins prepped and draped. Left groin was anesthetized with 1% lidocaine. A 21-gauge micropuncture needle was used to access the left common femoral artery, was exchanged using Seldinger technique through micropuncture sheath, which a 0.035 Glidewire was introduced. Micropuncture sheath was exchanged for a 4-S[place] sheath. A VCF catheter was placed over the wire and through the sheath and aortogram, pelvic arteriogram was obtained. The Glidewire was reintroduced and navigated down to the right common femoral artery and the VCF catheter was advanced over this and a right lower extremity arteriogram was obtained. The patient was systemically heparinized with 5000 units of IV Heparin. A 0.035 Ceballos wire was introduced down to the mid SFA and the VCF catheter and 4-S[place] Arabian sheath were removed and a 6-S[place] Arabian 55 cm Dimitry sheath was introduced. A CXI catheter was placed over the wire into the sheath and the wire was exchanged for a TOY MAKER wire. Using the TOY MAKER wire and CXI catheter we were able to navigate through the SFA lesion and the popliteal lesion. Both of these were angioplastied with a 5 x 200 and 5 x 80 balloon, respectively. The completion angiogram showed excellent result on recoil extravasation. We then did advance the catheter down to the popliteal artery. An angiogram was obtained. The wire, catheter and sheath were removed and the groin was closed with Angio-Seal. There were no complications. I was present and scrubbed for the entire procedure. INTERPRETATION OF IMAGES: The patient has a patent terminal aorta, common iliac arteries, hypogastric arteries and external iliac arteries, none of which have any hemodynamically significant stenoses. The right common femoral artery and profunda are patent without any hemodynamically significant stenosis. The proximal SFA is patent. The mid SFA has high-grade diffuse stenosis that was successfully angioplastied and the popliteal artery had a similar high-grade diffuse stenosis that was successfully angioplastied. The below knee popliteal artery occludes and there was no posterior tibial artery or peroneal artery proximally. The perigeniculate collaterals give rise to the posterior tibial artery in the mid to distal calf. , 09:14 AM Masoud Gates DPM DATE OF OPERATION: 01/05/2018 PREOPERATIVE DIAGNOSIS: Right fourth digit gangrene, abscess, diabetic foot infection. POSTOPERATIVE DIAGNOSIS: Right fourth digit gangrene, abscess, diabetic foot infection. PROCEDURE PERFORMED: Right fourth digit amputation, incision and drainage deep, right foot. INTRAOPERATIVE FINDINGS: Minimal bleeding. Foul odor at level of amputation site. S SPECIMENS: Fourth digit for pathology. Deep culture at amputation site for micro. ESTIMATED BLOOD LOSS: Less than 30 mL ANESTHESIA: General. DRAINS: None. TOURNIQUET: None. DISPOSITION: Returned to floor for vascular intervention and monitor of foot. May need wound VAC versus repetitive debridements versus amputation at a later date. JUSTIFICATION FOR PROCEDURE: A 42-year-old diabetic male with a history of smoking, was admitted. CT showed gas within the tissue at the base of the fourth digit. The patient was planned for vascular intervention; however, we wished to eradicate infection or at least debulk the infection first. The patient was educated on risks and benefits, need for more surgery, loss of limb. No guarantees were given or implied regarding the outcome. PROCEDURE IN DETAIL: Under mild sedation, the patient was brought into the operating room, placed on the operating table in supine position. Following the induction of general anesthesia, the patient's right lower extremity was scrubbed, prepped and draped in the usual aseptic fashion. The foot was elevated and examined. There was noted to be a necrotic, delayed capillary fill time, a putrid-smelling right fourth digit. A fishmouth mouth type incision was made disarticulating the digit down to the level of the joint. There were gas bubbles within the tissue. There was purulent drainage. There was a full-thickness eschar of the dorsum of the foot that had an odor. This was sharply unroofed down to the tendon sheath with exposed fourth metatarsal. There was no obvious signs of tracking deep within the plantar aspect of the foot or along the dorsal aspect of the foot. This was flushed with copious amounts of normal saline. Minimal Bovie and ligation was needed throughout the case. The wound was packed open, soft bandage applied. The patient was transferred from OR to PACU with all vital signs stable. The patient will be monitored after a vascular attempt. Overall prognosis is poor given the history of smoking and diabetes. I will see the patient within 1-2 days. Masoud Gates, DPM - R [place] pop to PT bypass with cryo/ R PT endarterectomy with patch angioplasty. - Right foot fourth metatarsal head resection with wound VAC placement. Medications and IVs Inpatient Medications Acetaminophen (Tylenol) 650 mg Q4H PRN PO temp > 101 Last administered on 04:16; Start 01/09/18 at 20:45 Amlodipine Besylate (Norvasc) 5 mg DAILY PO Last administered on 01/16/18at 10: 15; Start 01/08/18 at 09:00 Ampicillin Sodium/ Sulbactam Sodium 3 gm/Sodium Chloride 100 ml @ 200 mls/hr Q6H IV Last administered on 01/16/18 10:17; Start 01/08/18 at 17:00 Aspirin (Aspirin Chew) 324 mg ONCE ONCE CHEW Last administered on 01/04/18at 13 :33; Start 01/04/18 at 13:15; Stop 01/04/18 at 13:16; Status DC Aspirin (Aspirin) 325 mg DAILY PO Last administered on 01/16/18at 10:15; Start 01/13/18 at 09:00 Aspirin (Ecotrin Ec) 81 mg DAILY PO Last administered on 01/11/18at 09:07; Start 01/06/18 at 09:00; Stop 01/12/18 at 17:16; Status DC Atorvastatin Calcium (Lipitor) 40 mg HS PO Last administered on 01/15/18at 20:54 ; Start 01/12/18 at 21:00 Bisacodyl (Dulcolax Supp) 10 mg DAILY PRN RECTAL SEVERE CONSITIPATION; Start at 14:30 Cefepime HCl 2000 mg/Sodium Chloride 100 ml @ 200 mls/hr Q12H IV Last administered on 01/05/18at 06:04; Start 01/04/18 at 18:00; Stop 01/05/18 at 12:37 ; Status DC Chlorhexidine Gluconate (Chlorhexidine 2% Cloth) 3 pack ACTOR UNDERSTUDY PRN TOPICAL SEE LABEL COMMENTS; Start 01/12/18 at 02:30; Stop 01/15/18 at 02:29; Status DC Clonidine (Catapres) 0.1 mg Q4H PRN PO SBP>160, DBP>90 Last administered on at 04:46; Start 01/07/18 at 15:45 Clopidogrel Bisulfate (Plavix) 75 mg DAILY PO Last administered on 01/16/18at 10 :15; Start 01/08/18 at 09:00 Collagenase (Santyl Oint) 1 applic DAILY TOPICAL Last administered on 09:04; Start 01/14/18 at 09:00 Dextrose (D25w Inj) 10 ml ONCE ONCE IV PUSH Last administered on 01/04/18at 14: 28; Start 01/04/18 at 13:45; Stop 01/04/18 at 13:46; Status DC Dextrose (D50w (Vial) Inj) 50 ml UNSCH PRN IV PUSH HYPOGLYCEMIA-SEE COMMENTS; Start 01/04/18 at 17:45; Stop 01/06/18 at 10:41; Status DC Enoxaparin Sodium (Lovenox Inj) 40 mg Q24H SQ Last administered on 01/15/18at 17 :46; Start 01/15/18 at 18:00 Furosemide (Lasix Inj) 20 mg ACTOR UNDERSTUDY IV PUSH Last administered on 01/15/18at 21 :59; Start 01/15/18 at 18:00; Stop 01/15/18 at 23:59; Status DC Gabapentin (Neurontin) 300 mg TID PO Last administered on 01/16/18at 10:15; Start 01/04/18 at 18:00 Glucagon (Glucagon Inj) 1 mg UNSCH PRN OTHER HYPOGLYCEMIA-SEE COMMENTS; Start 01/04/18 at 17:45; Stop 01/06/18 at 10:41; Status DC Hydromorphone HCl (Dilaudid) 2 mg Q4H PRN PO PAIN SCALE 6 TO 10 Last administered on 01/16/18at 10:18; Start 01/12/18 at 16:30 Insulin Aspart (NovoLOG SUPPLEMENTAL SCALE) 1 ACHS SLIDING SCALE SQ Last administered on 01/15/18at 17:45; Start 01/06/18 at 12:00 Insulin Aspart Prota 70%/Aspart 30% (NovoLOG MIX 70/ 30 INJ) 30 units BID@0800, 1700 SQ Last administered on 01/15/18at 17:44; Start 01/06/18 at 17:00 Iron Sucrose 200 mg/Sodium Chloride 110 ml @ 110 mls/hr DAILY IV Last administered on 01/07/18at 12:23; Start 01/05/18 at 15:00; Stop 01/07/18 at 09:59 ; Status DC Lactated Ringer's 1,000 ml @ 30 mls/hr Q24H PRN IV SEE LABEL COMMENTS Last administered on 01/12/18at 10:55; Start 01/12/18 at 02:30; Stop 01/15/18 at 02:29 ; Status DC Lactulose (Lactulose Liq) 30 ml DAILY PRN PO SEVERE CONSITIPATION; Start at 14:30 Lisinopril (Prinivil) 10 mg DAILY PO Last administered on 01/16/18at 10:16; Start 01/05/18 at 09:00 Magnesium Hydroxide (Milk Of Magnesia Liq) 30 ml Q12H PRN PO Mild constipation ; Start 01/08/18 at 14:30 Miscellaneous Information [place] [facility] ALL NURSING DEPARTME... UNSCH PRN .XX SEE LABEL COMMENTS; Start 01/14/18 at 18:30; Stop 01/15/18 at 18: 29; Status DC Miscellaneous Information ([facility] Or[place] [facility] Info) SPECIFIC LAB TO BE ROSALEE... ONCE ONCE .XX Last administered on 01/06/18at 12:45; Start 01/06/18 at 12:45; Stop 01/06/18 at 12:46; Status DC Miscellaneous Information [place] [place] STAT ONCE XX ; Start 01/14/18 at 18:30; Stop 01/14/18 at 18:46; Status DC Morphine Sulfate (Morphine Inj) 2 mg Q1H PRN IV PUSH BREAKTHROUGH PAIN Last administered on 01/16/18at 01:46; Start 01/12/18 at 16:30 Naloxone HCl (Narcan Inj) 0.4 mg UNSCH PRN IV PUSH SEE LABEL COMMENTS; Start at 11:00 Ondansetron HCl (Zofran Odt) 8 mg Q6H PRN PO NAUSEA; Start 01/14/18 at 21:45 Oxycodone HCl (Roxicodone) 5 mg Q4H PRN PO PAIN SCALE 1 TO 5; Start 01/12/18 at 16:30 Oxycodone/ Acetaminophen (Percocet 7.5-325 Mg) 1 tab Q6H PRN PO PAIN SCALE 6 TO 10 Last administered on 01/10/18at 09:06; Start 01/04/18 at 18:00; Stop at 11:02; Status DC Oxycodone/ Acetaminophen (Percocet 5-325 Mg) 1 tab Q6HR PRN PO PAIN SCALE 3 TO 5; Start 01/04/18 at 18:00; Stop 01/12/18 at 18:15; Status DC Oxycodone/ Acetaminophen (Percocet 10-325 Mg) 1 tab Q6H PRN PO PAIN SCALE 6 TO 10 Last administered on 01/11/18at 18:34; Start 01/10/18 at 11:00; Stop 01/12/18 at 18:15; Status DC Pantoprazole Sodium (Protonix) 20 mg DAILY PO Last administered on 01/16/18at 10 :16; Start 01/05/18 at 09:00 Pharmacy Profile Note 0 ml @ 0 mls/hr UNSCH OTHER ; Start 01/04/18 at 18:00; Stop 01/07/18 at 14:48; Status DC Piperacillin Sod/ Tazobactam Sod 50 ml @ 100 mls/hr Q6H IV Last administered on 01/08/18at 14:55; Start 01/07/18 at 21:00; Stop 01/08/18 at 15:48; Status DC Polyethylene Glycol (Miralax) 17 gm DAILY PO Last administered on 01/15/18at 10: 22; Start 01/09/18 at 09:00 Povidone Iodine (Betadine 5% Antisepsis Kit) 1 applic ACTOR UNDERSTUDY PRN EACH NARE SEE LABEL COMMENTS; Start 01/12/18 at 02:30; Stop 01/15/18 at 02:29; Status DC Senna/Docusate Sodium (Trixie-Colace) 1 tab BID PO Last administered on at 08:48; Start 01/08/18 at 15:00 Sennosides (Senokot) 17.2 mg Q12H PRN PO Moderate constipation; Start 01/08/18 at 14:30 Sodium Chloride 250 ml @ 250 mls/hr ACTOR UNDERSTUDY IV Last administered on at 19:48; Start 01/15/18 at 18:00; Stop 01/15/18 at 23:59; Status DC Vancomycin HCl 1000 mg/Sodium Chloride 250 ml @ 250 mls/hr Q12H IV ; Start at 06:00; Stop 01/05/18 at 06:00; Status DC Vancomycin HCl 1250 mg/Sodium Chloride 262.5 ml @ 250 mls/hr Q12H IV Last administered on 01/06/18at 13:24; Start 01/05/18 at 01:00; Stop 01/06/18 at 15:21 ; Status DC Vancomycin HCl 1500 mg/Sodium Chloride 515 ml @ 250 mls/hr Q18H IV Last administered on 01/07/18at 05:20; Start 01/07/18 at 06:00; Stop 01/07/18 at 14:48 ; Status DC Zolpidem Tartrate (Ambien) 5 mg ONCE ONCE PO Last administered on 01/04/18at 22 :40; Start 01/04/18 at 22:15; Stop 01/04/18 at 22:16; Status DC A/P Problem List: (1) Leukocytosis ICD Code: D72.829 - Elevated white blood cell count, unspecified Status: Acute (2) Peripheral vascular disease ICD Code: I73.9 - Peripheral vascular disease, unspecified Status: Acute (3) Diabetic foot infection ICD Code: E11.628 - Type 2 diabetes mellitus with other skin complications; L08.9 - Local infection of the skin and subcutaneous tissue, unspecified Status: Acute (4) Renal insufficiency ICD Code: N28.9 - Disorder of kidney and ureter, unspecified (5) Hypertension ICD Code: I10 - Essential (primary) hypertension (6) DVT (deep venous thrombosis) ICD Code: I82.409 - Acute embolism and thrombosis of unspecified deep veins of unspecified lower extremity Assessment and Plan A/P Sepsis secondary to diabetic right foot infection with dry gangrene 4th digit with possible abscess on exam and possible underlying OM -s/p right fourth toe amputation and I/D of the right foot -s/p Right foot fourth metatarsal head resection with wound VAC placement. -Blood cultures negative. -initial wound culture with MSSA and Enterococcus Faecalis -on Unasyn per ID. -podiatry and ID following. Suspected dry gangrene Peripheral vascular disease -S/P angioplasty January [address] Cullen -s/p R [place] pop to PT bypass with cryo/R PT endarterectomy with patch angioplasty on 01/12. -continue aspirin/ plavix and statin -management per vascular surgery left arm swelling/pain; venous doppler negative for DVT; continue with pain control. Acute kidney injury superimposed on CKD - improving w/ IVF -will monitor. Microcytic anemia- chronic disease? -will check the stool for blood-pending. -monitor H/H Diabetes type 2 -Hold metformin for now, sliding scale with Accu-Chek -resumed insulin - -changed the diet to 1800 calos ADA -continue to monitor. medical noncompliance due to lack of insurance and uncontrolled diabetes Diabetic neuropathy -Continue on gabapentin Hypertension- overall better. -Continue lisinopril and Norvasc. -will monitor. DVT prophylaxis with subq Lovenox. Discharge Planning possible dc home- early this week , when cleared by consultants. Problem Qualifiers (1) Leukocytosis: Qualified Codes: D72.829 - Elevated white blood cell count, unspecified Katrina Ruiz MD January 16, 2018 11:43
[2018-01-16] MEDS: ENOXAPARIN SODIUM 40 MG/0.4 ML SYRINGE SQ SCH (18:18)
[2018-01-16] MEDS: ATORVASTATIN 40 MG TAB PO SCH (21:17)
[2018-01-17] VITALS (9 sets, daily range): BP systolic 100–119; BP diastolic 55–82; PULSE 79–108; RESP 17–20; TEMP 97.7–100.2; O2SAT 93–100
[2018-01-17] MEDS: HYDROmorphone HCL 2 MG TAB PO PRN ×5 (02:33→23:46)
[2018-01-17] MEDS: SODIUM CHLOR 0.9% 1000 ML INJ 1,000 ML IV SCH ×2 (03:18→17:36)
[2018-01-17] MEDS: AMPICILLIN-SULBACTAM INJ 3 GM in SODIUM CHLORIDE 0.9% INJ 100 ML IV SCH ×4 (06:23→23:52)
[2018-01-17] MEDS: INSULIN ASPART SUPPLEMENTAL SCALE SQ SCH ×4 (08:00→21:23)
[2018-01-17] MEDS: COLLAGENASE OINT 30 GM TUBE TOPICAL SCH (09:00)
[2018-01-17] MEDS: POLYETHYLENE GLYCOL 17 GM PKG PO SCH (09:00)
[2018-01-17] MEDS: DOCUSATE SODIUM 50 MG/SENNA 8.6 MG TAB PO SCH ×2 (09:00→21:23)
[2018-01-17] MEDS: LISINOPRIL 10 MG TAB PO SCH (09:00)
[2018-01-17] MEDS: amLODIPine BESYLATE 5 MG TAB PO SCH (09:00)
--- NOTE | 2018-01-17 10:16 | HHI.PR ---
Subjective Remarks in no acute distress. pain is better today. no fever. no new complaints. Objective Vitals Vital Signs Date Time Temp Pulse Resp B/P (MAP) Pulse Ox O2 Delivery O2 Flow Rate FiO2 01/17/18 04:00 Room Air 01/17/18 04:00 97.7 79 18 100/77 (85) 98 01/17/18 00:00 Room Air 01/17/18 00:00 100.2 107 19 119/55 (76) 93 01/16/18 20:00 Room Air 01/16/18 20:00 99.1 109 17 102/62 (75) 95 01/16/18 17:34 97 21 01/16/18 16:00 99.2 70 20 130/68 (88) 98 01/16/18 16:00 Room Air 01/16/18 12:00 Room Air 01/16/18 12:00 98.6 97 20 129/79 (96) 97 I/O 01/16/18 01/16/18 01/16/18 01/17/18 01/17/18 01/17/18 07:00 15:00 23:00 07:00 15:00 23:00 Intake Total 2143 ml 820 ml 240 ml Output Total 800 ml 600 ml 1350 ml Balance 1343 ml 220 ml -1110 ml Intake Oral 360 ml 720 ml 240 ml IV Total 1363 ml 100 ml Packed Cells 400 ml Blood Product IV Normal Saline Flush 20 ml Output Urine Total 800 ml 600 ml 1350 ml # Bowel Movements 0 0 Result Diagram: 01/16/18 0708 Imaging Last Impressions Foot X-Ray 01/14/18 0000 Signed Impressions: CONCLUSION: Expected postoperative findings from fourth digit mid metatarsal amputation. Upper Extremity Ultrasound 01/13/18 0000 Signed Impressions: CONCLUSION: 1. No evidence of DVT. Lower Extremity Ultrasound 01/06/18 0000 Signed Impressions: Service Date/Time: Saturday, January 06, 2018 17:05 - CONCLUSION: No DVT. Gibson Isaac MD Foot MRI 01/06/18 0000 Signed Impressions: Service Date/Time: Saturday, January 06, 2018 15:27 - CONCLUSION: Generalized edema with minimal enhancement in the operative bed, nonspecific. No evidence rales myelitis. Antonio Cole MD FACR Chest X-Ray 5/15/18 0600 Signed Impressions: Service Date/Time: Friday, January 05, 2018 09:18 - CONCLUSION: 1. No acute cardiopulmonary findings. Fausto Cole MD Lower Extremity CT 01/04/18 0000 Signed Impressions: Service Date/Time: Thursday, January 04, 2018 17:37 - CONCLUSION: 1. Soft tissue ulcer in the lateral proximal forefoot with subcutaneous air extending to the base of the fourth digit. No definite osseous abnormality to suggest osteomyelitis. Consider MRI examination if there is continued clinical concern. Giorgi Rider MD Objective Remarks GENERAL: This is a well-nourished, well-developed patient, in no apparent distress. CARDIOVASCULAR: Regular rate and regular rhythm without murmurs, gallops, or rubs. RESPIRATORY: Clear to auscultation. Breath sounds equal bilaterally. No wheezes , rales, or rhonchi. GASTROINTESTINAL: Abdomen soft, non-tender, nondistended. Normal, active bowel sounds MUSCULOSKELETAL: right foot covered with clean dressing. NEURO: Alert & Oriented x4 to person, place, time, situation. Moves all ext x4 Procedures ANGIOGRAM - Moe Cullen MD DATE OF OPERATION: PREOPERATIVE DIAGNOSIS: Right lower extremity tissue loss, peripheral vascular disease. POSTOPERATIVE DIAGNOSIS: Right lower extremity tissue loss, peripheral vascular disease. PROCEDURE PERFORMED: 1. Aortogram with right lower extremity angiogram. 2. Right SFA and popliteal artery angioplasty with 5 mm balloon. 3. Left common femoral artery Angio-Seal. OPERATING SURGEON: Moe Cullen MD ANESTHESIA: Local with sedation. INDICATIONS: Mr. Garibay is a 42-year-old gentleman with right lower extremity tissue loss. He is taken to the operating room for angiographic evaluation and potential treatment. There was no prior catheter-based imaging available for my review. DESCRIPTION OF PROCEDURE: Informed consent was obtained from the patient. He was taken to the operating room and placed supine on the operating table. An appropriate timeout was taken to ensure the patient's identity, the operative site and planned procedure. The administration of antibiotics was not necessary as this is a clean procedure without the planned implantation of any foreign object. Everyone in the room agreed with timeout and we proceeded. His bilateral groins prepped and draped. Left groin was anesthetized with 1% lidocaine. A 21-gauge micropuncture needle was used to access the left common femoral artery, was exchanged using Seldinger technique through micropuncture sheath, which a 0.035 Glidewire was introduced. Micropuncture sheath was exchanged for a 4-[place] sheath. A VCF catheter was placed over the wire and through the sheath and aortogram, pelvic arteriogram was obtained. The Glidewire was reintroduced and navigated down to the right common femoral artery and the VCF catheter was advanced over this and a right lower extremity arteriogram was obtained. The patient was systemically heparinized with 5000 units of IV Heparin. A 0.035 Ceballos wire was introduced down to the mid SFA and the VCF catheter and 4-[place] sheath were removed and a 6-[place] 55 cm Dimitry sheath was introduced. A CXI catheter was placed over the wire into the sheath and the wire was exchanged for a LOCK TECHNICIAN wire. Using the LOCK TECHNICIAN wire and CXI catheter we were able to navigate through the SFA lesion and the popliteal lesion. Both of these were angioplastied with a 5 x 200 and 5 x 80 balloon, respectively. The completion angiogram showed excellent result on recoil extravasation. We then did advance the catheter down to the popliteal artery. An angiogram was obtained. The wire, catheter and sheath were removed and the groin was closed with Angio-Seal. There were no complications. I was present and scrubbed for the entire procedure. INTERPRETATION OF IMAGES: The patient has a patent terminal aorta, common iliac arteries, hypogastric arteries and external iliac arteries, none of which have any hemodynamically significant stenoses. The right common femoral artery and profunda are patent without any hemodynamically significant stenosis. The proximal SFA is patent. The mid SFA has high-grade diffuse stenosis that was successfully angioplastied and the popliteal artery had a similar high-grade diffuse stenosis that was successfully angioplastied. The below knee popliteal artery occludes and there was no posterior tibial artery or peroneal artery proximally. The perigeniculate collaterals give rise to the posterior tibial artery in the mid to distal calf. , 09:14 AM Masoud Gates DPM DATE OF OPERATION: 01/05/2018 PREOPERATIVE DIAGNOSIS: Right fourth digit gangrene, abscess, diabetic foot infection. POSTOPERATIVE DIAGNOSIS: Right fourth digit gangrene, abscess, diabetic foot infection. PROCEDURE PERFORMED: Right fourth digit amputation, incision and drainage deep, right foot. INTRAOPERATIVE FINDINGS: Minimal bleeding. Foul odor at level of amputation site. S SPECIMENS: Fourth digit for pathology. Deep culture at amputation site for micro. ESTIMATED BLOOD LOSS: Less than 30 mL ANESTHESIA: General. DRAINS: None. TOURNIQUET: None. DISPOSITION: Returned to floor for vascular intervention and monitor of foot. May need wound VAC versus repetitive debridements versus amputation at a later date. JUSTIFICATION FOR PROCEDURE: A 42-year-old diabetic male with a history of smoking, was admitted. CT showed gas within the tissue at the base of the fourth digit. The patient was planned for vascular intervention; however, we wished to eradicate infection or at least debulk the infection first. The patient was educated on risks and benefits, need for more surgery, loss of limb. No guarantees were given or implied regarding the outcome. PROCEDURE IN DETAIL: Under mild sedation, the patient was brought into the operating room, placed on the operating table in supine position. Following the induction of general anesthesia, the patient's right lower extremity was scrubbed, prepped and draped in the usual aseptic fashion. The foot was elevated and examined. There was noted to be a necrotic, delayed capillary fill time, a putrid-smelling right fourth digit. A fishmouth mouth type incision was made disarticulating the digit down to the level of the joint. There were gas bubbles within the tissue. There was purulent drainage. There was a full-thickness eschar of the dorsum of the foot that had an odor. This was sharply unroofed down to the tendon sheath with exposed fourth metatarsal. There was no obvious signs of tracking deep within the plantar aspect of the foot or along the dorsal aspect of the foot. This was flushed with copious amounts of normal saline. Minimal Bovie and ligation was needed throughout the case. The wound was packed open, soft bandage applied. The patient was transferred from OR to PACU with all vital signs stable. The patient will be monitored after a vascular attempt. Overall prognosis is poor given the history of smoking and diabetes. I will see the patient within 1-2 days. Masoud Gates, DPM - R [place] pop to PT bypass with cryo/ R PT endarterectomy with patch angioplasty. - Right foot fourth metatarsal head resection with wound VAC placement. Medications and IVs Inpatient Medications Acetaminophen (Tylenol) 650 mg Q4H PRN PO temp > 101 Last administered on at 04:16; Start 01/09/18 at 20:45 Amlodipine Besylate (Norvasc) 5 mg DAILY PO Last administered on 01/16/18at 10: 15; Start 01/08/18 at 09:00 Ampicillin Sodium/ Sulbactam Sodium 3 gm/Sodium Chloride 100 ml @ 200 mls/hr Q6H IV Last administered on 01/17/18 06:23; Start 01/08/18 at 17:00 Aspirin (Aspirin Chew) 324 mg ONCE ONCE CHEW Last administered on 01/04/18at 13 :33; Start 01/04/18 at 13:15; Stop 01/04/18 at 13:16; Status DC Aspirin (Aspirin) 325 mg DAILY PO Last administered on 01/16/18at 10:15; Start 01/13/18 at 09:00 Aspirin (Ecotrin Ec) 81 mg DAILY PO Last administered on 01/11/18at 09:07; Start 01/06/18 at 09:00; Stop 01/12/18 at 17:16; Status DC Atorvastatin Calcium (Lipitor) 40 mg HS PO Last administered on 01/16/18at 21:17 ; Start 01/12/18 at 21:00 Bisacodyl (Dulcolax Supp) 10 mg DAILY PRN RECTAL SEVERE CONSITIPATION; Start at 14:30 Cefepime HCl 2000 mg/Sodium Chloride 100 ml @ 200 mls/hr Q12H IV Last administered on 01/05/18at 06:04; Start 01/04/18 at 18:00; Stop 01/05/18 at 12:37 ; Status DC Chlorhexidine Gluconate (Chlorhexidine 2% Cloth) 3 pack RN ONCOLOGY PRN TOPICAL SEE LABEL COMMENTS; Start 01/12/18 at 02:30; Stop 01/15/18 at 02:29; Status DC Clonidine (Catapres) 0.1 mg Q4H PRN PO SBP>160, DBP>90 Last administered on at 04:46; Start 01/07/18 at 15:45 Clopidogrel Bisulfate (Plavix) 75 mg DAILY PO Last administered on 01/16/18at 10 :15; Start 01/08/18 at 09:00 Collagenase (Santyl Oint) 1 applic DAILY TOPICAL Last administered on at 09:04; Start 01/14/18 at 09:00 Dextrose (D25w Inj) 10 ml ONCE ONCE IV PUSH Last administered on 01/04/18at 14: 28; Start 01/04/18 at 13:45; Stop 01/04/18 at 13:46; Status DC Dextrose (D50w (Vial) Inj) 50 ml UNSCH PRN IV PUSH HYPOGLYCEMIA-SEE COMMENTS; Start 01/04/18 at 17:45; Stop 01/06/18 at 10:41; Status DC Enoxaparin Sodium (Lovenox Inj) 40 mg Q24H SQ Last administered on 01/16/18at 18 :18; Start 01/15/18 at 18:00 Furosemide (Lasix Inj) 20 mg RN ONCOLOGY IV PUSH Last administered on 01/15/18at 21 :59; Start 01/15/18 at 18:00; Stop 01/15/18 at 23:59; Status DC Gabapentin (Neurontin) 300 mg TID PO Last administered on 01/16/18at 18:18; Start 01/04/18 at 18:00 Glucagon (Glucagon Inj) 1 mg UNSCH PRN OTHER HYPOGLYCEMIA-SEE COMMENTS; Start 01/04/18 at 17:45; Stop 01/06/18 at 10:41; Status DC Hydromorphone HCl (Dilaudid) 2 mg Q4H PRN PO PAIN SCALE 6 TO 10 Last administered on 01/17/18at 06:20; Start 01/12/18 at 16:30 Insulin Aspart (NovoLOG SUPPLEMENTAL SCALE) 1 ACHS SLIDING SCALE SQ Last administered on 01/16/18at 21:18; Start 01/06/18 at 12:00 Insulin Aspart Prota 70%/Aspart 30% (NovoLOG MIX 70/ 30 INJ) 30 units BID@0800, 1700 SQ Last administered on 01/16/18at 18:20; Start 01/06/18 at 17:00 Iron Sucrose 200 mg/Sodium Chloride 110 ml @ 110 mls/hr DAILY IV Last administered on 01/07/18at 12:23; Start 01/05/18 at 15:00; Stop 01/07/18 at 09:59 ; Status DC Lactated Ringer's 1,000 ml @ 30 mls/hr Q24H PRN IV SEE LABEL COMMENTS Last administered on 01/12/18at 10:55; Start 01/12/18 at 02:30; Stop 01/15/18 at 02:29 ; Status DC Lactulose (Lactulose Liq) 30 ml DAILY PRN PO SEVERE CONSITIPATION; Start at 14:30 Lisinopril (Prinivil) 10 mg DAILY PO Last administered on 01/16/18at 10:16; Start 01/05/18 at 09:00 Magnesium Hydroxide (Milk Of Magnesia Liq) 30 ml Q12H PRN PO Mild constipation ; Start 01/08/18 at 14:30 Miscellaneous Information ([facility] Nursing Information) ALL NURSING DEPARTME... UNSCH PRN .XX SEE LABEL COMMENTS; Start 01/14/18 at 18:30; Stop 01/15/18 at 18: 29; Status DC Miscellaneous Information ([facility] Pharmacy Ordered Lab Info) SPECIFIC LAB TO BE ROSALEE... ONCE ONCE .XX Last administered on 01/06/18at 12:45; Start 01/06/18 at 12:45; Stop 01/06/18 at 12:46; Status DC Miscellaneous Information ([facility] Post-op Orders (for Pharmacy)) STAT ONCE XX ; Start 01/14/18 at 18:30; Stop 01/14/18 at 18:46; Status DC Morphine Sulfate (Morphine Inj) 2 mg Q1H PRN IV PUSH BREAKTHROUGH PAIN Last administered on 01/16/18at 15:54; Start 01/12/18 at 16:30 Naloxone HCl (Narcan Inj) 0.4 mg UNSCH PRN IV PUSH SEE LABEL COMMENTS; Start at 11:00 Ondansetron HCl (Zofran Odt) 8 mg Q6H PRN PO NAUSEA; Start 01/14/18 at 21:45 Oxycodone HCl (Roxicodone) 5 mg Q4H PRN PO PAIN SCALE 1 TO 5; Start 01/12/18 at 16:30 Oxycodone/ Acetaminophen (Percocet 7.5-325 Mg) 1 tab Q6H PRN PO PAIN SCALE 6 TO 10 Last administered on 01/10/18at 09:06; Start 01/04/18 at 18:00; Stop at 11:02; Status DC Oxycodone/ Acetaminophen (Percocet 5-325 Mg) 1 tab Q6HR PRN PO PAIN SCALE 3 TO 5; Start 01/04/18 at 18:00; Stop 01/12/18 at 18:15; Status DC Oxycodone/ Acetaminophen (Percocet 10-325 Mg) 1 tab Q6H PRN PO PAIN SCALE 6 TO 10 Last administered on 01/11/18at 18:34; Start 01/10/18 at 11:00; Stop 01/12/18 at 18:15; Status DC Pantoprazole Sodium (Protonix) 20 mg DAILY PO Last administered on 01/16/18at 10 :16; Start 01/05/18 at 09:00 Pharmacy Profile Note 0 ml @ 0 mls/hr UNSCH OTHER ; Start 01/04/18 at 18:00; Stop 01/07/18 at 14:48; Status DC Piperacillin Sod/ Tazobactam Sod 50 ml @ 100 mls/hr Q6H IV Last administered on 01/08/18at 14:55; Start 01/07/18 at 21:00; Stop 01/08/18 at 15:48; Status DC Polyethylene Glycol (Miralax) 17 gm DAILY PO Last administered on 01/15/18at 10: 22; Start 01/09/18 at 09:00 Povidone Iodine (Betadine 5% Antisepsis Kit) 1 applic RN ONCOLOGY PRN EACH NARE SEE LABEL COMMENTS; Start 01/12/18 at 02:30; Stop 01/15/18 at 02:29; Status DC Senna/Docusate Sodium (Trixie-Colace) 1 tab BID PO Last administered on at 21:17; Start 01/08/18 at 15:00 Sennosides (Senokot) 17.2 mg Q12H PRN PO Moderate constipation; Start 01/08/18 at 14:30 Sodium Chloride 250 ml @ 250 mls/hr RN ONCOLOGY IV Last administered on at 19:48; Start 01/15/18 at 18:00; Stop 01/15/18 at 23:59; Status DC Vancomycin HCl 1000 mg/Sodium Chloride 250 ml @ 250 mls/hr Q12H IV ; Start at 06:00; Stop 01/05/18 at 06:00; Status DC Vancomycin HCl 1250 mg/Sodium Chloride 262.5 ml @ 250 mls/hr Q12H IV Last administered on 01/06/18at 13:24; Start 01/05/18 at 01:00; Stop 01/06/18 at 15:21 ; Status DC Vancomycin HCl 1500 mg/Sodium Chloride 515 ml @ 250 mls/hr Q18H IV Last administered on 01/07/18at 05:20; Start 01/07/18 at 06:00; Stop 01/07/18 at 14:48 ; Status DC Zolpidem Tartrate (Ambien) 5 mg ONCE ONCE PO Last administered on 01/04/18at 22 :40; Start 01/04/18 at 22:15; Stop 01/04/18 at 22:16; Status DC A/P Problem List: (1) Leukocytosis ICD Code: D72.829 - Elevated white blood cell count, unspecified Status: Acute (2) Peripheral vascular disease ICD Code: I73.9 - Peripheral vascular disease, unspecified Status: Acute (3) Diabetic foot infection ICD Code: E11.628 - Type 2 diabetes mellitus with other skin complications; L08.9 - Local infection of the skin and subcutaneous tissue, unspecified Status: Acute (4) Renal insufficiency ICD Code: N28.9 - Disorder of kidney and ureter, unspecified (5) Hypertension ICD Code: I10 - Essential (primary) hypertension (6) DVT (deep venous thrombosis) ICD Code: I82.409 - Acute embolism and thrombosis of unspecified deep veins of unspecified lower extremity Assessment and Plan A/P Sepsis secondary to diabetic right foot infection with dry gangrene 4th digit with possible abscess on exam and possible underlying OM -s/p right fourth toe amputation and I/D of the right foot -s/p Right foot fourth metatarsal head resection with wound VAC placement. -Blood cultures negative. -initial wound culture with MSSA and Enterococcus Faecalis -on Unasyn per ID. -podiatry and ID following. Suspected dry gangrene Peripheral vascular disease -S/P angioplasty January [address] Cullen -s/p R AK pop to PT bypass with cryo/R PT endarterectomy with patch angioplasty on 01/12. -continue aspirin/ plavix and statin -management per vascular surgery left arm swelling/pain; venous doppler negative for DVT; continue with pain control. Acute kidney injury superimposed on CKD - improving w/ IVF -will monitor. Microcytic anemia- chronic disease? -stool for blood negative. -a/p PRBC transfusion with improved H/H. -monitor H/H Diabetes type 2 -Hold metformin for now, sliding scale with Accu-Chek -resumed insulin - -changed the diet to 1800 calos ADA -continue to monitor. medical noncompliance due to lack of insurance and uncontrolled diabetes Diabetic neuropathy -Continue on gabapentin Hypertension- overall better. -Continue lisinopril and Norvasc. -will monitor. DVT prophylaxis with subq Lovenox. Discharge Planning possible dc home- early this week , when cleared by consultants. Problem Qualifiers (1) Leukocytosis: Qualified Codes: D72.829 - Elevated white blood cell count, unspecified Katrina Ruiz MD January 17, 2018 10:16
[2018-01-17] MEDS ORDERED: OXYC-392 PO (10:19)
[2018-01-17] MEDS ORDERED: ATOR40TA16 PO (10:19)
[2018-01-17] MEDS ORDERED: AMLO5 PO (10:19)
[2018-01-17] MEDS ORDERED: LISI10TA3 PO (10:19)
[2018-01-17] MEDS ORDERED: PLAV75TA29 PO (10:19)
[2018-01-17] MEDS ORDERED: NEUR300C PO (10:19)
[2018-01-17] MEDS ORDERED: ASA325 PO (10:19)
[2018-01-17] MEDS: GABAPENTIN 300 MG CAP PO SCH ×3 (11:02→18:00)
[2018-01-17] MEDS: INSULIN ASPAR PROT 70/30 1,000 UNITS/10 ML VIAL SQ SCH ×2 (11:02→17:00)
[2018-01-17] MEDS: ASPIRIN 325 MG TAB PO SCH (11:02)
[2018-01-17] MEDS: PANTOPRAZOLE SOD 20 MG DELAYED RELEASE TAB PO SCH (11:03)
[2018-01-17] MEDS: CLOPIDOGREL 75 MG TAB PO SCH (11:03)
[2018-01-17] MEDS: MORPHINE SULFATE 4 MG/ML INJ IV PUSH PRN (14:16)
--- NOTE | 2018-01-17 15:20 | HHI.FF ---
Face to Face Verification Diagnosis: (1) Diabetic foot infection Home Health Nursing Order: Wound care and dressing changes Instructions: Wound VAC changes every 48 hours, Thursday. Please apply white foam followed by black foam. Set wound VAC at 125 mm per mercury. I have seen patient Shay GaribayJr on 01/17/18. My clinical findings support the need for the requested home health care services because: Deconditioned w/ increased weakness Med compliance is questionable Limited ability to care for self Infection w/ risk of complications I certify that my clinical findings support that this patient is homebound because: Post-op weakness Unsteady gait/balance Ruth Glass DPM January 17, 2018 15:20
--- NOTE | 2018-01-17 15:27 | HHI.PR ---
Subjective Remarks Patient resting comfortably, with family present bedside. Patient states he feels as if his stomach is distended and rockhard. Reports normal bowel movements. Denies nausea vomiting fevers or chills. Objective Vital Signs Date Time Temp Pulse Resp B/P (MAP) Pulse Ox O2 Delivery O2 Flow Rate FiO2 01/17/18 12:05 99.4 82 20 112/71 (85) 95 01/17/18 12:00 Room Air 01/17/18 08:00 Room Air 01/17/18 07:55 99.5 101 18 103/57 (72) 95 01/17/18 04:00 Room Air 01/17/18 04:00 97.7 79 18 100/77 (85) 98 01/17/18 00:00 Room Air 01/17/18 00:00 100.2 107 19 119/55 (76) 93 01/16/18 20:00 Room Air 01/16/18 20:00 99.1 109 17 102/62 (75) 95 01/16/18 17:34 97 21 01/16/18 16:00 99.2 70 20 130/68 (88) 98 01/16/18 16:00 Room Air I/O 01/16/18 01/16/18 01/16/18 01/17/18 01/17/18 01/17/18 07:00 15:00 23:00 07:00 15:00 23:00 Intake Total 2143 ml 820 ml 240 ml Output Total 800 ml 600 ml 1350 ml Balance 1343 ml 220 ml -1110 ml Intake Oral 360 ml 720 ml 240 ml IV Total 1363 ml 100 ml Packed Cells 400 ml Blood Product IV Normal Saline Flush 20 ml Output Urine Total 800 ml 600 ml 1350 ml # Bowel Movements 0 0 Result Diagram: 01/16/18 0708 Imaging Last Impressions Foot X-Ray 01/14/18 0000 Signed Impressions: CONCLUSION: Expected postoperative findings from fourth digit mid metatarsal amputation. Upper Extremity Ultrasound 01/13/18 0000 Signed Impressions: CONCLUSION: 1. No evidence of DVT. Lower Extremity Ultrasound 01/06/18 0000 Signed Impressions: Service Date/Time: Saturday, January 06, 2018 17:05 - CONCLUSION: No DVT. Gibson Isaac MD Foot MRI 01/06/18 0000 Signed Impressions: Service Date/Time: Saturday, January 06, 2018 15:27 - CONCLUSION: Generalized edema with minimal enhancement in the operative bed, nonspecific. No evidence rales myelitis. Antonio Cole MD FACR Chest X-Ray 01/05/18 0600 Signed Impressions: Service Date/Time: Friday, January 05, 2018 09:18 - CONCLUSION: 1. No acute cardiopulmonary findings. Fausto Cole MD Lower Extremity CT 01/04/18 0000 Signed Impressions: Service Date/Time: Thursday, January 04, 2018 17:37 - CONCLUSION: 1. Soft tissue ulcer in the lateral proximal forefoot with subcutaneous air extending to the base of the fourth digit. No definite osseous abnormality to suggest osteomyelitis. Consider MRI examination if there is continued clinical concern. Giorgi Rider MD Procedures Status post right fourth metatarsal head resection with wound VAC placement Other Results Microbiology Date/Time Source Procedure Growth Status 01/09/18 21:44 Blood Peripheral Aerobic Blood Culture - Final NO GROWTH IN 5 DAYS Complete 01/09/18 21:44 Blood Peripheral Anaerobic Blood Culture - Final NO GROWTH IN 5 DAYS Complete 01/15/18 10:10 Stool Stool Stool Occult Blood (ESTRADA) - Final HEMOCCULT NEGATIVE Complete 01/14/18 18:17 Wound Foot Fungal Smear - Final NO FUNGAL ELEMENTS SEEN. Resulted 01/14/18 18:17 Wound Foot Fungal Culture Pending Resulted Objective Remarks Right dorsal fourth metatarsal ulceration noted with granular base improvement noted. Wound VAC set and functioning at 125 mm per mercury. Medications and IVs Current Medications Medications (Trade) Dose Ordered Sig/Soco Route Start Time Stop Time Status Last Admin Sodium Chloride 1,000 ml @ 70 mls/hr [id number] IV 01/04/18 15:00 01/17/18 03:18 (Prinivil) 10 mg DAILY PO 01/05/18 09:00 01/16/18 10:16 (Neurontin) 300 mg TID PO 01/04/18 18:00 01/17/18 11:02 (Protonix) 20 mg DAILY PO 01/05/18 09:00 01/17/18 11:03 (Plavix) 75 mg DAILY PO 01/08/18 09:00 01/17/18 11:03 (NovoLOG MIX 70/ 30 INJ) 30 units BID@0800,1700 SQ 01/06/18 17:00 01/17/18 11:02 (NovoLOG SUPPLEMENTAL SCALE) 1 ACHS SLIDING SCALE SQ 01/06/18 12:00 01/16/18 21:18 (Norvasc) 5 mg DAILY PO 01/08/18 09:00 Future Hold 01/16/18 10:15 (Catapres) 0.1 mg Q4H PRN PO 01/07/18 15:45 01/13/18 04:46 (Trixie-Colace) 1 tab BID PO 01/08/18 15:00 01/16/18 21:17 (Milk Of Magnesia Liq) 30 ml Q12H PRN PO 01/08/18 14:30 (Senokot) 17.2 mg Q12H PRN PO 01/08/18 14:30 (Dulcolax Supp) 10 mg DAILY PRN RECTAL 01/08/18 14:30 (Lactulose Liq) 30 ml DAILY PRN PO 01/08/18 14:30 (Miralax) 17 gm DAILY PO 01/09/18 09:00 01/15/18 10:22 Ampicillin Sodium/ Sulbactam Sodium 3 gm/Sodium Chloride 100 ml @ 200 mls/hr Q6H IV 01/08/18 17:00 01/17/18 11:01 (Tylenol) 650 mg Q4H PRN PO 01/09/18 20:45 01/14/18 04:16 (Narcan Inj) 0.4 mg UNSCH PRN IV PUSH 01/10/18 11:00 (Aspirin) 325 mg DAILY PO 01/13/18 09:00 01/17/18 11:02 (Lipitor) 40 mg HS PO 01/12/18 21:00 01/16/18 21:17 (Roxicodone) 5 mg Q4H PRN PO 01/12/18 16:30 (Dilaudid) 2 mg Q4H PRN PO 01/12/18 16:30 01/17/18 06:20 (Morphine Inj) 2 mg Q1H PRN IV PUSH 01/12/18 16:30 01/17/18 14:16 (Santyl Oint) 1 applic DAILY TOPICAL 01/14/18 09:00 01/15/18 09:04 (Lovenox Inj) 40 mg Q24H SQ 01/15/18 18:00 01/16/18 18:18 (Zofran Odt) 8 mg Q6H PRN PO 01/14/18 21:45 Assessment and Plan Assessment and Plan 42-year-old male with right foot dorsal wound with exposed fourth metatarsal head Patient examined and evaluated with all questions answered with family present bedside Patient will need to be DC'd with wound VAC [facility] wound VAC paperwork filled out and in chart Patient is to follow-up with wound care clinic at [place] within 1 week of discharge Wound VAC to be changed every 48 hours while in-house Consult placed to wound/ostomy nurse for wound VAC changes while in-house Okay to DC per podiatry once appropriate antibiotics have been made by infectious disease pending bone biopsy result Ruth Glass DPM January 17, 2018 15:27
[2018-01-17] MEDS ORDERED: FUROSEMIDE 40 MG/4 ML VIAL ONE (17:24)
[2018-01-17] MEDS: ENOXAPARIN SODIUM 40 MG/0.4 ML SYRINGE SQ SCH (18:00)
[2018-01-17] MEDS ORDERED: FUROSEMIDE 20 MG/2 ML VIAL IV PUSH ONE (18:15)
--- NOTE | 2018-01-17 18:55 | RADRPT ---
EXAM DATE: 01/17/2018 6:44 PM EDT AGE/SEX: 42 years / Male INDICATIONS: Short of breath, wheezing CLINICAL DATA: This is the patient's initial encounter. Patient reports that signs and symptoms have been present for 1 week and indicates a pain score of 0/10. MEDICAL/SURGICAL HISTORY: . Hypertension. Diabetes. . . Right ankle surgery COMPARISON: Chest x-ray 01/05/2018 . FINDINGS: A single portable frontal view the chest shows an infiltrate throughout the right lung but most prono unced within the medial right midlung. This is new from the prior study. Left lung is clear. No effus ions. Heart is normal in size. Bony structures are unremarkable. CONCLUSION: New right lung infiltrate. Electronically signed by: Franklin Fernandes MD 01/17/2018 6:54 PM EDT
--- NOTE | 2018-01-17 18:58 | RADRPT ---
EXAM DATE: 01/17/2018 6:53 PM EDT AGE/SEX: 42 years / Male INDICATIONS: Abdominal pain, distention CLINICAL DATA: This is the patient's initial encounter. Patient reports that signs and symptoms have been present for 1 week and indicates a pain score of 8/10. MEDICAL/SURGICAL HISTORY: Hypertension. Diabetes mellitus type II. . Right ankle surgery COMPARISON: None. FINDINGS: The abdominal bowel gas pattern is normal. No abnormal masses, calcifications, or organomegaly is s een. The osseous structures are unremarkable. CONCLUSION: Normal bowel gas pattern. Electronically signed by: Franklin Fernandes MD 01/17/2018 6:57 PM EDT
[2018-01-17] MEDS ORDERED: RESP: ALBUTEROL 1.25 MG/3 ML NEB (PRN) NEB (19:15)
[2018-01-17] MEDS ORDERED: Vancomycin Consult Pharmacy 1 EA OTHER SCH (19:15)
[2018-01-17] MEDS ORDERED: RESP: ALBUTEROL 2.5 MG/IPRATROPIUM 0.5 MG NEB (SCH) NEB (20:00)
[2018-01-17] MEDS ORDERED: VANCOMYCIN INJ 2,500 MG in SODIUM CHLORID 0.9% 500 ML INJ 500 ML IV ONE (21:00)
[2018-01-17] MEDS ORDERED: VANCOMYCIN INJ 2,000 MG in SODIUM CHLORID 0.9% 500 ML INJ 500 ML IV ONE (21:00)
[2018-01-17] MEDS: ATORVASTATIN 40 MG TAB PO SCH (21:23)
[2018-01-18] VITALS (7 sets, daily range): BP systolic 92–151; BP diastolic 58–82; PULSE 86–105; RESP 18–20; TEMP 97.8–98.8; O2SAT 94–100
[2018-01-18] MEDS: HYDROmorphone HCL 2 MG TAB PO PRN ×2 (04:05→09:19)
[2018-01-18] MEDS: AMPICILLIN-SULBACTAM INJ 3 GM in SODIUM CHLORIDE 0.9% INJ 100 ML IV SCH ×5 (04:06→23:43)
--- NOTE | 2018-01-18 08:36 | HHI.PR ---
Subjective Remarks had some sob yesterday evening. currently in no acute distress. says that he could sleep well last night. no fever. pain is controlled. no abdominal pain. d/w the RN. Objective Vitals Vital Signs Date Time Temp Pulse Resp B/P (MAP) Pulse Ox O2 Delivery O2 Flow Rate FiO2 01/18/18 08:04 95 Nasal Cannula 3.00 01/18/18 04:00 97.8 91 20 92/60 (71) 94 01/18/18 00:00 97.8 98 20 92/69 (77) 98 01/18/18 00:00 Nasal Cannula 3.00 01/17/18 20:40 98 Nasal Cannula 3.00 01/17/18 20:04 98 Venturi Mask 40 01/17/18 20:00 Nasal Cannula 3.00 01/17/18 20:00 99.0 108 17 106/82 (90) 100 01/17/18 19:30 Venturi Mask 6.00 50 01/17/18 19:00 Simple Mask 6.00 01/17/18 17:11 99 Simple Mask 6.00 01/17/18 15:40 99.1 106 18 108/61 (77) 98 01/17/18 12:05 99.4 82 20 112/71 (85) 95 01/17/18 12:00 Room Air I/O 01/17/18 01/17/18 01/17/18 01/18/18 01/18/18 01/18/18 07:00 15:00 23:00 07:00 15:00 23:00 Intake Total 240 ml 560 ml 1080 ml Output Total 1350 ml 400 ml 3100 ml Balance -1110 ml 160 ml -2020 ml Intake Oral 240 ml 560 ml 480 ml IV Total 600 ml Output Urine Total 1350 ml 400 ml 3100 ml # Bowel Movements 0 Result Diagram: 01/16/18 0708 Imaging Last Impressions Abdomen X-Ray 01/17/18 1758 Signed Impressions: CONCLUSION: Normal bowel gas pattern. Chest X-Ray 01/17/18 0000 Signed Impressions: CONCLUSION: New right lung infiltrate. Foot X-Ray 01/14/18 0000 Signed Impressions: CONCLUSION: Expected postoperative findings from fourth digit mid metatarsal amputation. Upper Extremity Ultrasound 01/13/18 0000 Signed Impressions: CONCLUSION: 1. No evidence of DVT. Lower Extremity Ultrasound 01/06/18 0000 Signed Impressions: Service Date/Time: Saturday, January 06, 2018 17:05 - CONCLUSION: No DVT. Gibson Isaac MD Foot MRI 01/06/18 0000 Signed Impressions: Service Date/Time: Saturday, January 06, 2018 15:27 - CONCLUSION: Generalized edema with minimal enhancement in the operative bed, nonspecific. No evidence rales myelitis. Antonio Cole MD FACR Lower Extremity CT 01/04/18 0000 Signed Impressions: Service Date/Time: Thursday, January 04, 2018 17:37 - CONCLUSION: 1. Soft tissue ulcer in the lateral proximal forefoot with subcutaneous air extending to the base of the fourth digit. No definite osseous abnormality to suggest osteomyelitis. Consider MRI examination if there is continued clinical concern. Giorgi Rider MD Objective Remarks GENERAL: This is a well-nourished, well-developed patient, in no apparent distress. CARDIOVASCULAR: Regular rate and regular rhythm without murmurs, gallops, or rubs. RESPIRATORY: Clear to auscultation. Breath sounds equal bilaterally. No wheezes , rales, or rhonchi. GASTROINTESTINAL: Abdomen soft, non-tender, nondistended. Normal, active bowel sounds MUSCULOSKELETAL: right foot covered with clean dressing. NEURO: Alert & Oriented x4 to person, place, time, situation. Moves all ext x4 Procedures ANGIOGRAM 01-06 Moe Cullen MD DATE OF OPERATION: PREOPERATIVE DIAGNOSIS: Right lower extremity tissue loss, peripheral vascular disease. POSTOPERATIVE DIAGNOSIS: Right lower extremity tissue loss, peripheral vascular disease. PROCEDURE PERFORMED: 1. Aortogram with right lower extremity angiogram. 2. Right SFA and popliteal artery angioplasty with 5 mm balloon. 3. Left common femoral artery Angio-Seal. OPERATING SURGEON: Moe Cullen MD ANESTHESIA: Local with sedation. INDICATIONS: Mr. Garibay is a 42-year-old gentleman with right lower extremity tissue loss. He is taken to the operating room for angiographic evaluation and potential treatment. There was no prior catheter-based imaging available for my review. DESCRIPTION OF PROCEDURE: Informed consent was obtained from the patient. He was taken to the operating room and placed supine on the operating table. An appropriate timeout was taken to ensure the patient's identity, the operative site and planned procedure. The administration of antibiotics was not necessary as this is a clean procedure without the planned implantation of any foreign object. Everyone in the room agreed with timeout and we proceeded. His bilateral groins prepped and draped. Left groin was anesthetized with 1% lidocaine. A 21-gauge micropuncture needle was used to access the left common femoral artery, was exchanged using Seldinger technique through micropuncture sheath, which a 0.035 Glidewire was introduced. Micropuncture sheath was exchanged for a 4-Maltese sheath. A VCF catheter was placed over the wire and through the sheath and aortogram, pelvic arteriogram was obtained. The Glidewire was reintroduced and navigated down to the right common femoral artery and the VCF catheter was advanced over this and a right lower extremity arteriogram was obtained. The patient was systemically heparinized with 5000 units of IV Heparin. A 0.035 Ceballos wire was introduced down to the mid SFA and the VCF catheter and 4-Maltese sheath were removed and a 6-Maltese 55 cm Dimitry sheath was introduced. A CXI catheter was placed over the wire into the sheath and the wire was exchanged for a PERSONAL CARE AID wire. Using the PERSONAL CARE AID wire and CXI catheter we were able to navigate through the SFA lesion and the popliteal lesion. Both of these were angioplastied with a 5 x 200 and 5 x 80 balloon, respectively. The completion angiogram showed excellent result on recoil extravasation. We then did advance the catheter down to the popliteal artery. An angiogram was obtained. The wire, catheter and sheath were removed and the groin was closed with Angio-Seal. There were no complications. I was present and scrubbed for the entire procedure. INTERPRETATION OF IMAGES: The patient has a patent terminal aorta, common iliac arteries, hypogastric arteries and external iliac arteries, none of which have any hemodynamically significant stenoses. The right common femoral artery and profunda are patent without any hemodynamically significant stenosis. The proximal SFA is patent. The mid SFA has high-grade diffuse stenosis that was successfully angioplastied and the popliteal artery had a similar high-grade diffuse stenosis that was successfully angioplastied. The below knee popliteal artery occludes and there was no posterior tibial artery or peroneal artery proximally. The perigeniculate collaterals give rise to the posterior tibial artery in the mid to distal calf. , 09:14 AM Masoud Gates DPM DATE OF OPERATION: 01/05/2018 PREOPERATIVE DIAGNOSIS: Right fourth digit gangrene, abscess, diabetic foot infection. POSTOPERATIVE DIAGNOSIS: Right fourth digit gangrene, abscess, diabetic foot infection. PROCEDURE PERFORMED: Right fourth digit amputation, incision and drainage deep, right foot. INTRAOPERATIVE FINDINGS: Minimal bleeding. Foul odor at level of amputation site. S SPECIMENS: Fourth digit for pathology. Deep culture at amputation site for micro. ESTIMATED BLOOD LOSS: Less than 30 mL ANESTHESIA: General. DRAINS: None. TOURNIQUET: None. DISPOSITION: Returned to floor for vascular intervention and monitor of foot. May need wound VAC versus repetitive debridements versus amputation at a later date. JUSTIFICATION FOR PROCEDURE: A 42-year-old diabetic male with a history of smoking, was admitted. CT showed gas within the tissue at the base of the fourth digit. The patient was planned for vascular intervention; however, we wished to eradicate infection or at least debulk the infection first. The patient was educated on risks and benefits, need for more surgery, loss of limb. No guarantees were given or implied regarding the outcome. PROCEDURE IN DETAIL: Under mild sedation, the patient was brought into the operating room, placed on the operating table in supine position. Following the induction of general anesthesia, the patient's right lower extremity was scrubbed, prepped and draped in the usual aseptic fashion. The foot was elevated and examined. There was noted to be a necrotic, delayed capillary fill time, a putrid-smelling right fourth digit. A fishmouth mouth type incision was made disarticulating the digit down to the level of the joint. There were gas bubbles within the tissue. There was purulent drainage. There was a full-thickness eschar of the dorsum of the foot that had an odor. This was sharply unroofed down to the tendon sheath with exposed fourth metatarsal. There was no obvious signs of tracking deep within the plantar aspect of the foot or along the dorsal aspect of the foot. This was flushed with copious amounts of normal saline. Minimal Bovie and ligation was needed throughout the case. The wound was packed open, soft bandage applied. The patient was transferred from OR to PACU with all vital signs stable. The patient will be monitored after a vascular attempt. Overall prognosis is poor given the history of smoking and diabetes. I will see the patient within 1-2 days. Masoud Gates, DPM - R AK pop to PT bypass with cryo/ R PT endarterectomy with patch angioplasty. - Right foot fourth metatarsal head resection with wound VAC placement. Medications and IVs Inpatient Medications Acetaminophen (Tylenol) 650 mg Q4H PRN PO temp > 101 Last administered on at 04:16; Start 01/09/18 at 20:45 Albuterol Sulfate (Albuterol Neb) 1.25 mg Q2HR NEB PRN NEB SHORTNESS OF BREATH ; Start 01/17/18 at 19:15 Albuterol/ Ipratropium (Duoneb Neb) 1 ampule Q4HR WHILE AWAKE NEB NEB Last administered on 01/17/18at 21:40; Start 01/17/18 at 20:00; Stop 01/18/18 at 06:00 ; Status DC Amlodipine Besylate (Norvasc) 5 mg DAILY PO Last administered on 01/16/18at 10: 15; Start 01/08/18 at 09:00; Status Future Hold Ampicillin Sodium/ Sulbactam Sodium 3 gm/Sodium Chloride 100 ml @ 200 mls/hr Q6H IV Last administered on 01/17/18at 23:52; Start 01/08/18 at 17:00 Aspirin (Aspirin Chew) 324 mg ONCE ONCE CHEW Last administered on 01/04/18at 13 :33; Start 01/04/18 at 13:15; Stop 01/04/18 at 13:16; Status DC Aspirin (Aspirin) 325 mg DAILY PO Last administered on 01/17/18at 11:02; Start 01/13/18 at 09:00 Aspirin (Ecotrin Ec) 81 mg DAILY PO Last administered on 01/11/18at 09:07; Start 01/06/18 at 09:00; Stop 01/12/18 at 17:16; Status DC Atorvastatin Calcium (Lipitor) 40 mg HS PO Last administered on 01/17/18at 21:23 ; Start 01/12/18 at 21:00 Bisacodyl (Dulcolax Supp) 10 mg DAILY PRN RECTAL SEVERE CONSITIPATION; Start at 14:30 Cefepime HCl 2000 mg/Sodium Chloride 100 ml @ 200 mls/hr Q12H IV Last administered on 01/05/18at 06:04; Start 01/04/18 at 18:00; Stop 01/05/18 at 12:37 ; Status DC Chlorhexidine Gluconate (Chlorhexidine 2% Cloth) 3 pack GREASE MAKER HEAD PRN TOPICAL SEE LABEL COMMENTS; Start 01/12/18 at 02:30; Stop 01/15/18 at 02:29; Status DC Clonidine (Catapres) 0.1 mg Q4H PRN PO SBP>160, DBP>90 Last administered on at 04:46; Start 01/07/18 at 15:45 Clopidogrel Bisulfate (Plavix) 75 mg DAILY PO Last administered on 01/17/18at 11 :03; Start 01/08/18 at 09:00 Collagenase (Santyl Oint) 1 applic DAILY TOPICAL Last administered on at 09:04; Start 01/14/18 at 09:00 Dextrose (D25w Inj) 10 ml ONCE ONCE IV PUSH Last administered on 01/04/18at 14: 28; Start 01/04/18 at 13:45; Stop 01/04/18 at 13:46; Status DC Dextrose (D50w (Vial) Inj) 50 ml UNSCH PRN IV PUSH HYPOGLYCEMIA-SEE COMMENTS; Start 01/04/18 at 17:45; Stop 01/06/18 at 10:41; Status DC Enoxaparin Sodium (Lovenox Inj) 40 mg Q24H SQ Last administered on 01/16/18at 18 :18; Start 01/15/18 at 18:00 Furosemide (Lasix Inj) 20 mg NOW ONCE IV PUSH Last administered on 01/17/18at 18:15; Start 01/17/18 at 18:15; Stop 01/17/18 at 18:16; Status DC Gabapentin (Neurontin) 300 mg TID PO Last administered on 01/17/18at 15:18; Start 01/04/18 at 18:00 Glucagon (Glucagon Inj) 1 mg UNSCH PRN OTHER HYPOGLYCEMIA-SEE COMMENTS; Start 01/04/18 at 17:45; Stop 01/06/18 at 10:41; Status DC Hydromorphone HCl (Dilaudid) 2 mg Q4H PRN PO PAIN SCALE 6 TO 10 Last administered on 01/18/18at 04:05; Start 01/12/18 at 16:30 Insulin Aspart (NovoLOG SUPPLEMENTAL SCALE) 1 ACHS SLIDING SCALE SQ Last administered on 01/17/18at 21:23; Start 01/06/18 at 12:00 Insulin Aspart Prota 70%/Aspart 30% (NovoLOG MIX 70/ 30 INJ) 30 units BID@0800, 1700 SQ Last administered on 01/17/18at 11:02; Start 01/06/18 at 17:00 Iron Sucrose 200 mg/Sodium Chloride 110 ml @ 110 mls/hr DAILY IV Last administered on 01/07/18at 12:23; Start 01/05/18 at 15:00; Stop 01/07/18 at 09:59 ; Status DC Lactated Ringer's 1,000 ml @ 30 mls/hr Q24H PRN IV SEE LABEL COMMENTS Last administered on 01/12/18at 10:55; Start 01/12/18 at 02:30; Stop 01/15/18 at 02:29 ; Status DC Lactulose (Lactulose Liq) 30 ml DAILY PRN PO SEVERE CONSITIPATION; Start at 14:30 Lisinopril (Prinivil) 10 mg DAILY PO Last administered on 01/16/18at 10:16; Start 01/05/18 at 09:00 Magnesium Hydroxide (Milk Of Magnesia Liq) 30 ml Q12H PRN PO Mild constipation ; Start 01/08/18 at 14:30 Miscellaneous Information ([facility] Information) ALL NURSING DEPARTME... UNSCH PRN .XX SEE LABEL COMMENTS; Start 01/14/18 at 18:30; Stop 01/15/18 at 18: 29; Status DC Miscellaneous Information ([facility] Ordered Lab Info) SPECIFIC LAB TO BE DRAWN:VANCO TROUGH DATE TO BE DRDylon. ONCE ONCE .XX ; Start 01/19/18 at 08:45; Stop 01/19/18 at 08:46 Miscellaneous Information ([facility] Post-op Orders (for Pharmacy)) STAT ONCE XX ; Start 01/14/18 at 18:30; Stop 01/14/18 at 18:46; Status DC Morphine Sulfate (Morphine Inj) 2 mg Q1H PRN IV PUSH BREAKTHROUGH PAIN Last administered on 01/17/18at 14:16; Start 01/12/18 at 16:30 Naloxone HCl (Narcan Inj) 0.4 mg UNSCH PRN IV PUSH SEE LABEL COMMENTS; Start at 11:00 Ondansetron HCl (Zofran Odt) 8 mg Q6H PRN PO NAUSEA; Start 01/14/18 at 21:45 Oxycodone HCl (Roxicodone) 5 mg Q4H PRN PO PAIN SCALE 1 TO 5; Start 01/12/18 at 16:30 Oxycodone/ Acetaminophen (Percocet 7.5-325 Mg) 1 tab Q6H PRN PO PAIN SCALE 6 TO 10 Last administered on 01/10/18at 09:06; Start 01/04/18 at 18:00; Stop at 11:02; Status DC Oxycodone/ Acetaminophen (Percocet 5-325 Mg) 1 tab Q6HR PRN PO PAIN SCALE 3 TO 5; Start 01/04/18 at 18:00; Stop 01/12/18 at 18:15; Status DC Oxycodone/ Acetaminophen (Percocet 10-325 Mg) 1 tab Q6H PRN PO PAIN SCALE 6 TO 10 Last administered on 01/11/18at 18:34; Start 01/10/18 at 11:00; Stop 01/12/18 at 18:15; Status DC Pantoprazole Sodium (Protonix) 20 mg DAILY PO Last administered on 01/17/18at 11 :03; Start 01/05/18 at 09:00 Pharmacy Profile Note 0 ml @ 0 mls/hr UNSCH OTHER ; Start 01/17/18 at 19:15 Piperacillin Sod/ Tazobactam Sod 50 ml @ 100 mls/hr Q6H IV Last administered on 01/08/18at 14:55; Start 01/07/18 at 21:00; Stop 01/08/18 at 15:48; Status DC Polyethylene Glycol (Miralax) 17 gm DAILY PO Last administered on 01/15/18at 10: 22; Start 01/09/18 at 09:00 Povidone Iodine (Betadine 5% Antisepsis Kit) 1 applic GREASE MAKER HEAD PRN EACH NARE SEE LABEL COMMENTS; Start 01/12/18 at 02:30; Stop 01/15/18 at 02:29; Status DC Senna/Docusate Sodium (Trixie-Colace) 1 tab BID PO Last administered on at 21:23; Start 01/08/18 at 15:00 Sennosides (Senokot) 17.2 mg Q12H PRN PO Moderate constipation; Start 01/08/18 at 14:30 Sodium Chloride 250 ml @ 250 mls/hr GREASE MAKER HEAD IV Last administered on at 19:48; Start 01/15/18 at 18:00; Stop 01/15/18 at 23:59; Status DC Vancomycin HCl 1000 mg/Sodium Chloride 250 ml @ 250 mls/hr Q12H IV ; Start at 06:00; Stop 01/05/18 at 06:00; Status DC Vancomycin HCl 1250 mg/Sodium Chloride 262.5 ml @ 250 mls/hr Q12H IV Last administered on 01/06/18at 13:24; Start 01/05/18 at 01:00; Stop 01/06/18 at 15:21 ; Status DC Vancomycin HCl 1500 mg/Sodium Chloride 515 ml @ 250 mls/hr Q18H IV Last administered on 01/07/18at 05:20; Start 01/07/18 at 06:00; Stop 01/07/18 at 14:48 ; Status DC Vancomycin HCl 2000 mg/Sodium Chloride 500 ml @ 250 mls/hr ONCE ONCE IV Last administered on 01/17/18at 21:24; Start 01/17/18 at 21:00; Stop 01/17/18 at 22:59 ; Status DC Vancomycin HCl 2500 mg/Sodium Chloride 500 ml @ 250 mls/hr ONCE ONCE IV ; Start 01/17/18 at 21:00; Stop 01/17/18 at 21:00; Status DC Zolpidem Tartrate (Ambien) 5 mg ONCE ONCE PO Last administered on 01/04/18at 22 :40; Start 01/04/18 at 22:15; Stop 01/04/18 at 22:16; Status DC A/P Problem List: (1) Leukocytosis ICD Code: D72.829 - Elevated white blood cell count, unspecified Status: Acute (2) Peripheral vascular disease ICD Code: I73.9 - Peripheral vascular disease, unspecified Status: Acute (3) Diabetic foot infection ICD Code: E11.628 - Type 2 diabetes mellitus with other skin complications; L08.9 - Local infection of the skin and subcutaneous tissue, unspecified Status: Acute (4) Renal insufficiency ICD Code: N28.9 - Disorder of kidney and ureter, unspecified (5) Hypertension ICD Code: I10 - Essential (primary) hypertension (6) DVT (deep venous thrombosis) ICD Code: I82.409 - Acute embolism and thrombosis of unspecified deep veins of unspecified lower extremity Assessment and Plan A/P Sepsis secondary to diabetic right foot infection with dry gangrene 4th digit with possible abscess on exam and possible underlying OM -s/p right fourth toe amputation and I/D of the right foot -s/p Right foot fourth metatarsal head resection with wound VAC placement. -Blood cultures negative. -initial wound culture with MSSA and Enterococcus Faecalis -on Unasyn per ID. -podiatry f/u appreciated; cleared for discharge with wound vac. -PICC line today if ok with ID. -ID following. Suspected dry gangrene Peripheral vascular disease -S/P angioplasty January [address] Cullen -s/p R AK pop to PT bypass with cryo/R PT endarterectomy with patch angioplasty on 01/12. -continue aspirin/ plavix and statin -management per vascular surgery right-sided pneumonia vs fluid overload- clinically better. received a couple of doses of IV Lasix yesterday- started on IV Vanco- continue Unasyn. left arm swelling/pain; venous doppler negative for DVT; continue with pain control. Acute kidney injury superimposed on CKD - improved w/ IVF -will monitor. Microcytic anemia- chronic disease? -stool for blood negative. -a/p PRBC transfusion with improved H/H. -monitor H/H Diabetes type 2 -Hold metformin for now, sliding scale with Accu-Chek -resumed insulin - -changed the diet to 1800 calos ADA -continue to monitor. medical noncompliance due to lack of insurance and uncontrolled diabetes Diabetic neuropathy -Continue on gabapentin Hypertension- overall better. -Continue lisinopril and Norvasc. -will monitor. DVT prophylaxis with subq Lovenox. Discharge Planning possible dc home tomorrow- if stable and cleared by ID. Problem Qualifiers (1) Leukocytosis: Qualified Codes: D72.829 - Elevated white blood cell count, unspecified Katrina Ruiz MD January 18, 2018 08:36
--- NOTE | 2018-01-18 08:37 | HHI.FF ---
Face to Face Verification Diagnosis: (1) Diabetic infection of right foot Physical Therapy Order: Evaluate and Treat Home Health Nursing Order: Medical education Signs/symptoms of disease process Medication education-adverse effect Wound care and dressing changes Nursing assessment with vital signs I have seen patient Shay GaribayJr on 01/18/18. My clinical findings support the need for the requested home health care services because: Ltd mobility - disease progression I certify that my clinical findings support that this patient is homebound because: Unsteady gait/balance Katrina Ruiz MD January 18, 2018 08:37
[2018-01-18] MEDS ORDERED: VANCOMYCIN INJ 2,000 MG in SODIUM CHLORID 0.9% 500 ML INJ 500 ML IV ONE ×2 (09:00→18:00)
[2018-01-18] MEDS: INSULIN ASPAR PROT 70/30 1,000 UNITS/10 ML VIAL SQ SCH ×2 (09:17→12:36)
[2018-01-18] MEDS: INSULIN ASPART SUPPLEMENTAL SCALE SQ SCH ×4 (09:17→23:43)
[2018-01-18] MEDS: ASPIRIN 325 MG TAB PO SCH (09:18)
[2018-01-18] MEDS: GABAPENTIN 300 MG CAP PO SCH ×3 (09:18→17:32)
[2018-01-18] MEDS: PANTOPRAZOLE SOD 20 MG DELAYED RELEASE TAB PO SCH (09:18)
[2018-01-18] MEDS: LISINOPRIL 10 MG TAB PO SCH (09:18)
[2018-01-18] MEDS: COLLAGENASE OINT 30 GM TUBE TOPICAL SCH (09:18)
[2018-01-18] MEDS: CLOPIDOGREL 75 MG TAB PO SCH (09:18)
[2018-01-18] MEDS: DOCUSATE SODIUM 50 MG/SENNA 8.6 MG TAB PO SCH ×2 (09:18→21:33)
[2018-01-18] MEDS: POLYETHYLENE GLYCOL 17 GM PKG PO SCH (09:19)
[2018-01-18] MEDS ORDERED: DIATRIZOATE MEGLUM/DIATRIZOATE SOD 9 ML CUP PO ONE (12:00)
--- NOTE | 2018-01-18 14:11 | HHI.IDPN ---
Subjective Subjective Remarks sp RIGHT LE distal bypass on 01/12/18 w/ Dr. Cullen sp Right fourth digit amputation, incision and drainage deep, right foot by Dr Riggs pt is co abdominal; distension he denies abdominal pain + eating OK + BM yday + 15 bls from admission weight BP low this am, later improved sp 40 of Lasix yday Antibiotics Unasyn given a dose of vanco today Lines PIV with no e/o infection Past Medical History Hypertension Diabetes type 2 insulin requiring at one point Neuropathy Allergies: Coded Allergies: No Known Allergies (Verified Adverse Reaction, Unknown, 01/04/18) Objective . Vital Signs Date Time Temp Pulse Resp B/P (MAP) Pulse Ox O2 Delivery O2 Flow Rate FiO2 01/18/18 12:20 98.7 98 18 151/72 (98) 99 01/18/18 08:05 98.8 86 20 125/58 (80) 96 01/18/18 08:04 95 Nasal Cannula 3.00 01/18/18 04:00 97.8 91 20 92/60 (71) 94 01/18/18 00:00 97.8 98 20 92/69 (77) 98 01/18/18 00:00 Nasal Cannula 3.00 01/17/18 20:40 98 Nasal Cannula 3.00 01/17/18 20:04 98 Venturi Mask 40 01/17/18 20:00 Nasal Cannula 3.00 01/17/18 20:00 99.0 108 17 106/82 (90) 100 01/17/18 19:30 Venturi Mask 6.00 50 01/17/18 19:00 Simple Mask 6.00 01/17/18 17:11 99 Simple Mask 6.00 01/17/18 15:40 99.1 106 18 108/61 (77) 98 Imaging Last Impressions Abdomen X-Ray 01/17/18 1758 Signed Impressions: CONCLUSION: Normal bowel gas pattern. Chest X-Ray 01/17/18 0000 Signed Impressions: CONCLUSION: New right lung infiltrate. Foot X-Ray 01/14/18 0000 Signed Impressions: CONCLUSION: Expected postoperative findings from fourth digit mid metatarsal amputation. Upper Extremity Ultrasound 01/13/18 0000 Signed Impressions: CONCLUSION: 1. No evidence of DVT. Lower Extremity Ultrasound 01/06/18 0000 Signed Impressions: Service Date/Time: Saturday, January 06, 2018 17:05 - CONCLUSION: No DVT. Gibson Isaac MD Foot MRI 01/06/18 0000 Signed Impressions: Service Date/Time: Saturday, January 06, 2018 15:27 - CONCLUSION: Generalized edema with minimal enhancement in the operative bed, nonspecific. No evidence rales myelitis. Antonio Cole MD FACR Lower Extremity CT 01/04/18 0000 Signed Impressions: Service Date/Time: Thursday, January 04, 2018 17:37 - CONCLUSION: 1. Soft tissue ulcer in the lateral proximal forefoot with subcutaneous air extending to the base of the fourth digit. No definite osseous abnormality to suggest osteomyelitis. Consider MRI examination if there is continued clinical concern. Giorgi Rider MD Physical Exam CONSTITUTIONAL/GENERAL: This is an obese male patient, in no apparent distress. Awake and alert. Appears comfortable. SKIN: No jaundice, rashes, or lesions. HEENT: NC/AT. EOMI. Sclera anicteric. No nasal bleeding or discharge. MMM. RESPIRATORY: Nonlabored. Clear to auscultation bilaterally. No wheezing or rhonchi noted. CARDIOVASCULAR: Regular rate and rhythm without any murmurs, rubs or gallops. GI: abdomen markedly distended but non tender unable to aplpate any organomegaly or masses MUSCULOSKELETAL: Extremities without clubbing, cyanosis, R foot with VAC in place Prominent tight not puitting RUE edema thigh incision with small amout of drainage Lower incision with occlusive dressing - intacrt R foot with VAC in placve with serosang d/c NEUROLOGICAL: Awake and alert. Motor and sensory grossly within normal limits. Follows commands. Clear speech. Moves all extremities. PSYCHIATRIC: No obvious anxiety/depression. no apparent hallucinations or other psychotic thought process. Calm and pleasant. Cooperative with exam. PIV with no e/o infection Assessment & Plan Remarks DFI, suspected osteomyelitis of R foot, 4 th MT - P path - clx + MSSA R 4th toe gangrene sp amputation surface clx growing MSSA and Enterococcus GPC in op clx Confirmed PVD sp revasc'n RUE DVT ARF Marked fluid retention Abd distention / asceites RLE edema , r/o DVT cont Unasyn BMP CBC US RLE POssibly CT A/P PICC LUMaritza liu pt and his Janeen Bolanos MD January 18, 2018 14:11
[2018-01-18] MEDS ORDERED: SODIUM CHLORIDE 0.9% FLUSH 10 ML FLUSH IV FLUSH PRN (17:15)
[2018-01-18] MEDS: ENOXAPARIN SODIUM 40 MG/0.4 ML SYRINGE SQ SCH (17:32)
[2018-01-18 17:49] LABS: AUTOMATED NEUTROPHIL # 11.3 TH/MM3 (1.8-7.7); BASOPHIL # 0.1 TH/MM3 (0-0.2); BASOPHIL % 0.6 % (0.0-2.0); EOSINOPHIL # 0.3 TH/MM3 (0-0.4); EOSINOPHIL % 2.1 % (0.0-4.0); HEMATOCRIT 25.1 % (39.0-51.0); HEMOGLOBIN 8.3 GM/DL (13.0-17.0); LYMPH % 10.8 % (9.0-44.0); LYMPHOCYTE # 1.6 TH/MM3 (1.0-4.8); MEAN CORPUSCULAR HEMOGLOBIN 25.7 PG (27.0-34.0); MEAN PLATELET VOLUME 7.2 FL (7.0-11.0); MONO % 10.4 % (0.0-8.0); MONOCYTE # 1.6 TH/MM3 (0-0.9); NEUT % 76.1 % (16.0-70.0); PLATELET COUNT 495 TH/MM3 (150-450); RED BLOOD COUNT 3.22 MIL/MM3 (4.50-5.90); RED CELL DISTRIBUTION WIDTH 15.5 % (11.6-17.2); WHITE BLOOD COUNT 14.9 TH/MM3 (4.0-11.0)
--- NOTE | 2018-01-18 17:56 | ECHRPT ---
Indication: HEART FAILURE CONCLUSIONS The left ventricular systolic function is mildly reduced with an estimated ejection fraction in the range of 45- 50%. Normal left ventricular size. Wall thickness is normal. No regional wall motion abnormalities are present. Trace mitral valve regurgitation. There is trace tricuspid valve regurgitation. Normal estimated pulmonary pressures. The pulmonary valve is not well visualized. BP: 92 / 60 HR: 71 Rhythm: Sinus Technical Quality:Fair FINDINGS LEFT VENTRICLE The left ventricular systolic function is mildly reduced with an estimated ejection fraction in the range of 45- 50%. Normal left ventricular size. Wall thickness is normal. No regional wall motion abnormalities are present. RIGHT VENTRICLE Normal right ventricular size and systolic function. LEFT ATRIUM The left atrial size is normal. RIGHT ATRIUM The right atrial size is normal. ATRIAL SEPTUM Normal atrial septal thickness without atrial level shunting by limited color doppler interrogation. AORTA The aortic root and proximal ascending aorta are normal in size on limited imaging. MITRAL VALVE Structurally normal mitral valve. Trace mitral valve regurgitation. AORTIC VALVE Trileaflet aortic valve. No aortic valve stenosis or regurgitation. TRICUSPID VALVE Structurally normal tricuspid valve. There is trace tricuspid valve regurgitation. Normal estimated pulmonary pressures. PULMONARY VALVE The pulmonary valve is not well visualized. VESSELS The inferior vena cava is normal in size. PERICARDIUM No pericardial effusion. Jaret Bolanos MD, FACC, FSCAI (Electronically Signed) Final Date:18 Jan 2018 17:55
[2018-01-18 18:06] LABS: ALBUMIN 1.6 GM/DL (3.4-5.0); AST (GOT) 20 U/L (15-37); BICARBONATE 27.1 MEQ/L (21.0-32.0); BLOOD UREA NITROGEN 11 MG/DL (7-18); CALCIUM 8.7 MG/DL (8.5-10.1); CHLORIDE 105 MEQ/L (98-107); CREATININE 0.85 MG/DL (0.60-1.30); GLOMERULAR FILTRATION RATE 120 ML/MIN (>89); GLUCOSE,RANDOM 94 MG/DL (74-106); SODIUM (NA) 139 MEQ/L (136-145)
[2018-01-18 18:08] LABS: ALT (GPT) 17 U/L (12-78)
[2018-01-18 18:10] LABS: ALKALINE PHOSPHATASE 319 U/L (45-117); TOTAL BILIRUBIN ADULT 0.3 MG/DL (0.2-1.0); TOTAL PROTEIN 7.4 GM/DL (6.4-8.2)
[2018-01-18] MEDS: ATORVASTATIN 40 MG TAB PO SCH (21:33)
[2018-01-19] VITALS (9 sets, daily range): BP systolic 98–162; BP diastolic 58–100; PULSE 86–102; RESP 16–20; TEMP 98.3–99; O2SAT 97–100
[2018-01-19] MEDS: AMPICILLIN-SULBACTAM INJ 3 GM in SODIUM CHLORIDE 0.9% INJ 100 ML IV SCH ×4 (04:01→22:00)
[2018-01-19] MEDS ORDERED: VANCOMYCIN INJ 2,000 MG in SODIUM CHLORID 0.9% 500 ML INJ 500 ML IV SCH (06:00)
[2018-01-19] MEDS: POLYETHYLENE GLYCOL 17 GM PKG PO SCH (08:31)
[2018-01-19] MEDS: PANTOPRAZOLE SOD 20 MG DELAYED RELEASE TAB PO SCH (08:31)
[2018-01-19] MEDS: ASPIRIN 325 MG TAB PO SCH (08:31)
[2018-01-19] MEDS: INSULIN ASPART SUPPLEMENTAL SCALE SQ SCH ×4 (08:31→20:03)
[2018-01-19] MEDS: INSULIN ASPAR PROT 70/30 1,000 UNITS/10 ML VIAL SQ SCH ×2 (08:31→17:36)
[2018-01-19] MEDS: CLOPIDOGREL 75 MG TAB PO SCH (08:32)
[2018-01-19] MEDS: GABAPENTIN 300 MG CAP PO SCH ×3 (08:32→17:34)
[2018-01-19] MEDS: DOCUSATE SODIUM 50 MG/SENNA 8.6 MG TAB PO SCH ×2 (08:32→20:03)
[2018-01-19] MEDS: SODIUM CHLORIDE 0.9% FLUSH 10 ML FLUSH IV FLUSH SCH (08:33)
[2018-01-19] MEDS: LISINOPRIL 10 MG TAB PO SCH (08:36)
[2018-01-19] MEDS: HYDROmorphone HCL 2 MG TAB PO PRN ×3 (08:48→21:59)
[2018-01-19] MEDS: COLLAGENASE OINT 30 GM TUBE TOPICAL SCH (08:49)
--- NOTE | 2018-01-19 10:29 | HHI.PR ---
Subjective Remarks in no acute distress. no sob. pain is controlled. Objective Vitals Vital Signs Date Time Temp Pulse Resp B/P (MAP) Pulse Ox O2 Delivery O2 Flow Rate FiO2 01/19/18 10:01 97 21 01/19/18 08:00 Nasal Cannula 3.00 50 01/19/18 08:00 99.0 102 16 153/88 (109) 97 01/19/18 04:00 98.5 101 20 100/58 (72) 97 01/19/18 00:00 98.3 102 20 100/58 (72) 97 01/18/18 23:00 Nasal Cannula 3.00 01/18/18 20:00 98.6 105 20 128/64 (85) 100 01/18/18 16:05 98.5 88 18 141/82 (101) 97 01/18/18 16:00 Nasal Cannula 3.00 01/18/18 12:20 98.7 98 18 151/72 (98) 99 01/18/18 12:00 Nasal Cannula 3.00 I/O 01/18/18 01/18/18 01/18/18 01/19/18 01/19/18 01/19/18 07:00 15:00 23:00 07:00 15:00 23:00 Intake Total 1080 ml 640 ml Output Total 3100 ml 500 ml 1200 ml Balance -2020 ml 140 ml -1200 ml Intake Oral 480 ml 640 ml IV Total 600 ml Output Urine Total 3100 ml 500 ml 1200 ml # Bowel Movements 1 Result Diagram: 01/18/18 1720 01/18/18 1720 Imaging Last Impressions Abdomen X-Ray 01/17/18 1758 Signed Impressions: CONCLUSION: Normal bowel gas pattern. Chest X-Ray 01/17/18 0000 Signed Impressions: CONCLUSION: New right lung infiltrate. Foot X-Ray 01/14/18 0000 Signed Impressions: CONCLUSION: Expected postoperative findings from fourth digit mid metatarsal amputation. Upper Extremity Ultrasound 01/13/18 0000 Signed Impressions: CONCLUSION: 1. No evidence of DVT. Lower Extremity Ultrasound 01/06/18 0000 Signed Impressions: Service Date/Time: Saturday, January 06, 2018 17:05 - CONCLUSION: No DVT. Gibson Isaac MD Foot MRI 01/06/18 0000 Signed Impressions: Service Date/Time: Saturday, January 06, 2018 15:27 - CONCLUSION: Generalized edema with minimal enhancement in the operative bed, nonspecific. No evidence rales myelitis. Antonio Cole MD FACR Lower Extremity CT 01/04/18 0000 Signed Impressions: Service Date/Time: Thursday, January 04, 2018 17:37 - CONCLUSION: 1. Soft tissue ulcer in the lateral proximal forefoot with subcutaneous air extending to the base of the fourth digit. No definite osseous abnormality to suggest osteomyelitis. Consider MRI examination if there is continued clinical concern. Giorgi Rider MD Objective Remarks GENERAL: This is a well-nourished, well-developed patient, in no apparent distress. CARDIOVASCULAR: Regular rate and regular rhythm without murmurs, gallops, or rubs. RESPIRATORY: Clear to auscultation. Breath sounds equal bilaterally. No wheezes , rales, or rhonchi. GASTROINTESTINAL: Abdomen soft, non-tender, nondistended. Normal, active bowel sounds MUSCULOSKELETAL: right foot covered with clean dressing. NEURO: Alert & Oriented x4 to person, place, time, situation. Moves all ext x4 Procedures ANGIOGRAM - Moe Cullen MD DATE OF OPERATION: PREOPERATIVE DIAGNOSIS: Right lower extremity tissue loss, peripheral vascular disease. POSTOPERATIVE DIAGNOSIS: Right lower extremity tissue loss, peripheral vascular disease. PROCEDURE PERFORMED: 1. Aortogram with right lower extremity angiogram. 2. Right SFA and popliteal artery angioplasty with 5 mm balloon. 3. Left common femoral artery Angio-Seal. OPERATING SURGEON: Moe Cullen MD ANESTHESIA: Local with sedation. INDICATIONS: Mr. Garibay is a 42-year-old gentleman with right lower extremity tissue loss. He is taken to the operating room for angiographic evaluation and potential treatment. There was no prior catheter-based imaging available for my review. DESCRIPTION OF PROCEDURE: Informed consent was obtained from the patient. He was taken to the operating room and placed supine on the operating table. An appropriate timeout was taken to ensure the patient's identity, the operative site and planned procedure. The administration of antibiotics was not necessary as this is a clean procedure without the planned implantation of any foreign object. Everyone in the room agreed with timeout and we proceeded. His bilateral groins prepped and draped. Left groin was anesthetized with 1% lidocaine. A 21-gauge micropuncture needle was used to access the left common femoral artery, was exchanged using Seldinger technique through micropuncture sheath, which a 0.035 Glidewire was introduced. Micropuncture sheath was exchanged for a 4-Salvadorean sheath. A VCF catheter was placed over the wire and through the sheath and aortogram, pelvic arteriogram was obtained. The Glidewire was reintroduced and navigated down to the right common femoral artery and the VCF catheter was advanced over this and a right lower extremity arteriogram was obtained. The patient was systemically heparinized with 5000 units of IV Heparin. A 0.035 Ceballos wire was introduced down to the mid SFA and the VCF catheter and 4-Salvadorean sheath were removed and a 6-Salvadorean 55 cm Dimitry sheath was introduced. A CXI catheter was placed over the wire into the sheath and the wire was exchanged for a SCHOOL CURRICULUM DEVELOPER wire. Using the SCHOOL CURRICULUM DEVELOPER wire and CXI catheter we were able to navigate through the SFA lesion and the popliteal lesion. Both of these were angioplastied with a 5 x 200 and 5 x 80 balloon, respectively. The completion angiogram showed excellent result on recoil extravasation. We then did advance the catheter down to the popliteal artery. An angiogram was obtained. The wire, catheter and sheath were removed and the groin was closed with Angio-Seal. There were no complications. I was present and scrubbed for the entire procedure. INTERPRETATION OF IMAGES: The patient has a patent terminal aorta, common iliac arteries, hypogastric arteries and external iliac arteries, none of which have any hemodynamically significant stenoses. The right common femoral artery and profunda are patent without any hemodynamically significant stenosis. The proximal SFA is patent. The mid SFA has high-grade diffuse stenosis that was successfully angioplastied and the popliteal artery had a similar high-grade diffuse stenosis that was successfully angioplastied. The below knee popliteal artery occludes and there was no posterior tibial artery or peroneal artery proximally. The perigeniculate collaterals give rise to the posterior tibial artery in the mid to distal calf. , 09:14 AM Yajaira,Msaoud B DPM DATE OF OPERATION: 01/05/2018 PREOPERATIVE DIAGNOSIS: Right fourth digit gangrene, abscess, diabetic foot infection. POSTOPERATIVE DIAGNOSIS: Right fourth digit gangrene, abscess, diabetic foot infection. PROCEDURE PERFORMED: Right fourth digit amputation, incision and drainage deep, right foot. INTRAOPERATIVE FINDINGS: Minimal bleeding. Foul odor at level of amputation site. S SPECIMENS: Fourth digit for pathology. Deep culture at amputation site for micro. ESTIMATED BLOOD LOSS: Less than 30 mL ANESTHESIA: General. DRAINS: None. TOURNIQUET: None. DISPOSITION: Returned to floor for vascular intervention and monitor of foot. May need wound VAC versus repetitive debridements versus amputation at a later date. JUSTIFICATION FOR PROCEDURE: A 42-year-old diabetic male with a history of smoking, was admitted. CT showed gas within the tissue at the base of the fourth digit. The patient was planned for vascular intervention; however, we wished to eradicate infection or at least debulk the infection first. The patient was educated on risks and benefits, need for more surgery, loss of limb. No guarantees were given or implied regarding the outcome. PROCEDURE IN DETAIL: Under mild sedation, the patient was brought into the operating room, placed on the operating table in supine position. Following the induction of general anesthesia, the patient's right lower extremity was scrubbed, prepped and draped in the usual aseptic fashion. The foot was elevated and examined. There was noted to be a necrotic, delayed capillary fill time, a putrid-smelling right fourth digit. A fishmouth mouth type incision was made disarticulating the digit down to the level of the joint. There were gas bubbles within the tissue. There was purulent drainage. There was a full-thickness eschar of the dorsum of the foot that had an odor. This was sharply unroofed down to the tendon sheath with exposed fourth metatarsal. There was no obvious signs of tracking deep within the plantar aspect of the foot or along the dorsal aspect of the foot. This was flushed with copious amounts of normal saline. Minimal Bovie and ligation was needed throughout the case. The wound was packed open, soft bandage applied. The patient was transferred from OR to PACU with all vital signs stable. The patient will be monitored after a vascular attempt. Overall prognosis is poor given the history of smoking and diabetes. I will see the patient within 1-2 days. Masoud Gates, DPM - R AK pop to PT bypass with cryo/ R PT endarterectomy with patch angioplasty. - Right foot fourth metatarsal head resection with wound VAC placement. Medications and IVs Inpatient Medications Acetaminophen (Tylenol) 650 mg Q4H PRN PO temp > 101 Last administered on at 04:16; Start 01/09/18 at 20:45 Albuterol Sulfate (Albuterol Neb) 1.25 mg Q2HR NEB PRN NEB SHORTNESS OF BREATH ; Start 01/17/18 at 19:15 Albuterol/ Ipratropium (Duoneb Neb) 1 ampule Q4HR WHILE AWAKE NEB NEB Last administered on 01/17/18at 21:40; Start 01/17/18 at 20:00; Stop 01/18/18 at 06:00 ; Status DC Amlodipine Besylate (Norvasc) 5 mg DAILY PO Last administered on 01/16/18at 10: 15; Start 01/08/18 at 09:00; Status Future Hold Ampicillin Sodium/ Sulbactam Sodium 3 gm/Sodium Chloride 100 ml @ 200 mls/hr Q6H IV Last administered on 01/19/18at 04:01; Start 01/08/18 at 17:00 Aspirin (Aspirin Chew) 324 mg ONCE ONCE CHEW Last administered on 01/04/18at 13 :33; Start 01/04/18 at 13:15; Stop 01/04/18 at 13:16; Status DC Aspirin (Aspirin) 325 mg DAILY PO Last administered on 01/19/18at 08:31; Start 01/13/18 at 09:00 Aspirin (Ecotrin Ec) 81 mg DAILY PO Last administered on 01/11/18at 09:07; Start 01/06/18 at 09:00; Stop 01/12/18 at 17:16; Status DC Atorvastatin Calcium (Lipitor) 40 mg HS PO Last administered on 01/18/18at 21:33 ; Start 01/12/18 at 21:00 Bisacodyl (Dulcolax Supp) 10 mg DAILY PRN RECTAL SEVERE CONSITIPATION; Start at 14:30 Cefepime HCl 2000 mg/Sodium Chloride 100 ml @ 200 mls/hr Q12H IV Last administered on 01/05/18 06:04; Start 01/04/18 at 18:00; Stop 01/05/18 at 12:37 ; Status DC Chlorhexidine Gluconate (Chlorhexidine 2% Cloth) 3 pack RESIDENT CARE TECHNICIAN PRN TOPICAL SEE LABEL COMMENTS; Start 01/12/18 at 02:30; Stop 01/15/18 at 02:29; Status DC Clonidine (Catapres) 0.1 mg Q4H PRN PO SBP>160, DBP>90 Last administered on at 04:46; Start 01/07/18 at 15:45 Clopidogrel Bisulfate (Plavix) 75 mg DAILY PO Last administered on 01/19/18at 08 :32; Start 01/08/18 at 09:00 Collagenase (Santyl Oint) 1 applic DAILY TOPICAL Last administered on at 09:18; Start 01/14/18 at 09:00 Dextrose (D25w Inj) 10 ml ONCE ONCE IV PUSH Last administered on 01/04/18at 14: 28; Start 01/04/18 at 13:45; Stop 01/04/18 at 13:46; Status DC Dextrose (D50w (Vial) Inj) 50 ml UNSCH PRN IV PUSH HYPOGLYCEMIA-SEE COMMENTS; Start 01/04/18 at 17:45; Stop 01/06/18 at 10:41; Status DC Enoxaparin Sodium (Lovenox Inj) 40 mg Q24H SQ Last administered on 01/18/18at 17 :32; Start 01/15/18 at 18:00 Furosemide (Lasix Inj) 20 mg NOW ONCE IV PUSH Last administered on 01/17/18at 18:15; Start 01/17/18 at 18:15; Stop 01/17/18 at 18:16; Status DC Gabapentin (Neurontin) 300 mg TID PO Last administered on 01/19/18at 08:32; Start 01/04/18 at 18:00 Glucagon (Glucagon Inj) 1 mg UNSCH PRN OTHER HYPOGLYCEMIA-SEE COMMENTS; Start 01/04/18 at 17:45; Stop 01/06/18 at 10:41; Status DC Heparin Sodium (Porcine) (Heparin Central Flush) See Protocol UNSCH PRN IV FLUSH SEE PROTOCOL TABLE; Start 01/18/18 at 17:15 Hydromorphone HCl (Dilaudid) 2 mg Q4H PRN PO PAIN SCALE 6 TO 10 Last administered on 01/19/18at 08:48; Start 01/12/18 at 16:30 Insulin Aspart (NovoLOG SUPPLEMENTAL SCALE) 1 ACHS SLIDING SCALE SQ Last administered on 01/19/18at 08:31; Start 01/06/18 at 12:00 Insulin Aspart Prota 70%/Aspart 30% (NovoLOG MIX 70/ 30 INJ) 30 units BID@0800, 1700 SQ Last administered on 01/19/18 08:31; Start 01/06/18 at 17:00 Iron Sucrose 200 mg/Sodium Chloride 110 ml @ 110 mls/hr DAILY IV Last administered on 01/07/18at 12:23; Start 01/05/18 at 15:00; Stop 01/07/18 at 09:59 ; Status DC Lactated Ringer's 1,000 ml @ 30 mls/hr Q24H PRN IV SEE LABEL COMMENTS Last administered on 01/12/18at 10:55; Start 01/12/18 at 02:30; Stop 01/15/18 at 02:29 ; Status DC Lactulose (Lactulose Liq) 30 ml DAILY PRN PO SEVERE CONSITIPATION; Start at 14:30 Lisinopril (Prinivil) 10 mg DAILY PO Last administered on 01/19/18at 08:36; Start 01/05/18 at 09:00 Magnesium Hydroxide (Milk Of Magnesia Liq) 30 ml Q12H PRN PO Mild constipation ; Start 01/08/18 at 14:30 Miscellaneous Information ([facility] Nursing Information) ALL NURSING DEPARTME... UNSCH PRN .XX SEE LABEL COMMENTS; Start 01/14/18 at 18:30; Stop 01/15/18 at 18: 29; Status DC Miscellaneous Information ([facility] Pharmacy Ordered Lab Info) SPECIFIC LAB TO BE DRAWN:YUDELKA BOOTHE DATE TO BE . ONCE ONCE .XX ; Start 01/20/18 at 05:45; Stop 01/20/18 at 05:46 Miscellaneous Information ([facility] Post-op Orders (for Pharmacy)) STAT ONCE XX ; Start 01/14/18 at 18:30; Stop 01/14/18 at 18:46; Status DC Morphine Sulfate (Morphine Inj) 2 mg Q1H PRN IV PUSH BREAKTHROUGH PAIN Last administered on 01/17/18at 14:16; Start 01/12/18 at 16:30 Naloxone HCl (Narcan Inj) 0.4 mg UNSCH PRN IV PUSH SEE LABEL COMMENTS; Start at 11:00 Ondansetron HCl (Zofran Odt) 8 mg Q6H PRN PO NAUSEA; Start 01/14/18 at 21:45 Oxycodone HCl (Roxicodone) 5 mg Q4H PRN PO PAIN SCALE 1 TO 5 Last administered on 01/19/18at 04:01; Start 01/12/18 at 16:30 Oxycodone/ Acetaminophen (Percocet 7.5-325 Mg) 1 tab Q6H PRN PO PAIN SCALE 6 TO 10 Last administered on 01/10/18at 09:06; Start 01/04/18 at 18:00; Stop at 11:02; Status DC Oxycodone/ Acetaminophen (Percocet 5-325 Mg) 1 tab Q6HR PRN PO PAIN SCALE 3 TO 5; Start 01/04/18 at 18:00; Stop 01/12/18 at 18:15; Status DC Oxycodone/ Acetaminophen (Percocet 10-325 Mg) 1 tab Q6H PRN PO PAIN SCALE 6 TO 10 Last administered on 01/11/18at 18:34; Start 01/10/18 at 11:00; Stop 01/12/18 at 18:15; Status DC Pantoprazole Sodium (Protonix) 20 mg DAILY PO Last administered on 01/19/18at 08 :31; Start 01/05/18 at 09:00 Pharmacy Profile Note 0 ml @ 0 mls/hr UNSCH OTHER ; Start 01/17/18 at 19:15 Piperacillin Sod/ Tazobactam Sod 50 ml @ 100 mls/hr Q6H IV Last administered on 01/08/18at 14:55; Start 01/07/18 at 21:00; Stop 01/08/18 at 15:48; Status DC Polyethylene Glycol (Miralax) 17 gm DAILY PO Last administered on 01/19/18at 08: 31; Start 01/09/18 at 09:00 Povidone Iodine (Betadine 5% Antisepsis Kit) 1 applic RESIDENT CARE TECHNICIAN PRN EACH NARE SEE LABEL COMMENTS; Start 01/12/18 at 02:30; Stop 01/15/18 at 02:29; Status DC Senna/Docusate Sodium (Trixie-Colace) 1 tab BID PO Last administered on at 08:32; Start 01/08/18 at 15:00 Sennosides (Senokot) 17.2 mg Q12H PRN PO Moderate constipation; Start 01/08/18 at 14:30 Sodium Chloride (NS Flush) UNSCH PRN IV FLUSH SEE PROTOCOL TABLE; Start at 17:15 Vancomycin HCl 1000 mg/Sodium Chloride 250 ml @ 250 mls/hr Q12H IV ; Start at 06:00; Stop 01/05/18 at 06:00; Status DC Vancomycin HCl 1250 mg/Sodium Chloride 262.5 ml @ 250 mls/hr Q12H IV Last administered on 01/06/18at 13:24; Start 01/05/18 at 01:00; Stop 01/06/18 at 15:21 ; Status DC Vancomycin HCl 1500 mg/Sodium Chloride 515 ml @ 250 mls/hr Q18H IV Last administered on 01/07/18at 05:20; Start 01/07/18 at 06:00; Stop 01/07/18 at 14:48 ; Status DC Vancomycin HCl 2000 mg/Sodium Chloride 520 ml @ 257.5 mls/ hr Q12H IV Last administered on 01/19/18at 06:00; Start 01/19/18 at 06:00 Zolpidem Tartrate (Ambien) 5 mg ONCE ONCE PO Last administered on 01/04/18at 22 :40; Start 01/04/18 at 22:15; Stop 01/04/18 at 22:16; Status DC A/P Problem List: (1) Leukocytosis ICD Code: D72.829 - Elevated white blood cell count, unspecified Status: Acute (2) Peripheral vascular disease ICD Code: I73.9 - Peripheral vascular disease, unspecified Status: Acute (3) Diabetic foot infection ICD Code: E11.628 - Type 2 diabetes mellitus with other skin complications; L08.9 - Local infection of the skin and subcutaneous tissue, unspecified Status: Acute (4) Renal insufficiency ICD Code: N28.9 - Disorder of kidney and ureter, unspecified (5) Hypertension ICD Code: I10 - Essential (primary) hypertension (6) DVT (deep venous thrombosis) ICD Code: I82.409 - Acute embolism and thrombosis of unspecified deep veins of unspecified lower extremity Assessment and Plan A/P Sepsis secondary to diabetic right foot infection with dry gangrene 4th digit with possible abscess on exam and possible underlying OM -s/p right fourth toe amputation and I/D of the right foot -s/p Right foot fourth metatarsal head resection with wound VAC placement. -Blood cultures negative. -initial wound culture with MSSA and Enterococcus Faecalis -on Unasyn per ID. -podiatry f/u appreciated; cleared for discharge with wound vac. -ID following. Suspected dry gangrene Peripheral vascular disease -S/P angioplasty January [address] Cullen -s/p R AK pop to PT bypass with cryo/R PT endarterectomy with patch angioplasty on 01/12. -continue aspirin/ plavix and statin -management per vascular surgery right-sided pneumonia vs fluid overload- clinically better. stop Vancomycin- fluid on hold- continue to monitor. left arm swelling/pain; venous doppler negative for DVT; continue with pain control. right leg swelling- post-op; venous doppler pending. Acute kidney injury superimposed on CKD - improved w/ IVF -will monitor. Microcytic anemia- chronic disease? -stool for blood negative. -a/p PRBC transfusion with improved H/H. -monitor H/H Diabetes type 2 -Hold metformin for now, sliding scale with Accu-Chek -resumed insulin - -changed the diet to 1800 calos ADA -continue to monitor. medical noncompliance due to lack of insurance and uncontrolled diabetes Diabetic neuropathy -Continue on gabapentin Hypertension- overall better. -Continue lisinopril and Norvasc. -will monitor. DVT prophylaxis with subq Lovenox. Discharge Planning possible dc home tomorrow- if stable and cleared by ID. Problem Qualifiers (1) Leukocytosis: Qualified Codes: D72.829 - Elevated white blood cell count, unspecified Katrina Ruiz MD January 19, 2018 10:29
--- NOTE | 2018-01-19 10:37 | PD.VS.PN ---
Subjective POD #: 7 Procedure(s): R AK pop to PT bypass PT endarterectomy and patch Subjective/Hospital Course POD 7 Pt s/p R LE revascularization/distal bypass Pt w/ improved R LE swelling R LE incisions intact Pain controlled Objective Vitals/I&O Date Time Temp Pulse Resp B/P (MAP) Pulse Ox O2 Delivery O2 Flow Rate FiO2 01/19/18 10:01 97 21 01/19/18 08:00 Nasal Cannula 3.00 50 01/19/18 08:00 99.0 102 16 153/88 (109) 97 01/19/18 04:00 98.5 101 20 100/58 (72) 97 01/19/18 00:00 98.3 102 20 100/58 (72) 97 01/18/18 23:00 Nasal Cannula 3.00 01/18/18 20:00 98.6 105 20 128/64 (85) 100 01/18/18 16:05 98.5 88 18 141/82 (101) 97 01/18/18 16:00 Nasal Cannula 3.00 01/18/18 12:20 98.7 98 18 151/72 (98) 99 01/18/18 12:00 Nasal Cannula 3.00 01/19/18 01/19/18 01/19/18 07:00 15:00 23:00 Output Total 1200 ml Balance -1200 ml Exam: GENERAL: A&OX3,NAD,GCS 15 SKIN: LE Warm and dry w/ motor intact Improved R LE swelling Incision to R LE (thigh) intact R LE incision well approximated with sutures intact/ No R/D/S/O NECK: Supple, trachea midline. No JVD or lymphadenopathy. CARDIOVASCULAR: Regular rate and rhythm without murmurs, gallops, or rubs. RESPIRATORY: Breath sounds equal bilaterally. No accessory muscle use. GASTROINTESTINAL: Abdomen soft, non-tender, nondistended. RIGHT PT/DP with strong biphasic signal heard via Doppler Laboratory Laboratory Tests Test 01/18/18 17:20 01/18/18 17:57 White Blood Count 14.9 Red Blood Count 3.22 Hemoglobin 8.3 Hematocrit 25.1 Mean Corpuscular Volume 78.0 Mean Corpuscular Hemoglobin 25.7 Mean Corpuscular Hemoglobin Concent 33.0 Red Cell Distribution Width 15.5 Platelet Count 495 Mean Platelet Volume 7.2 Neutrophils (%) (Auto) 76.1 Lymphocytes (%) (Auto) 10.8 Monocytes (%) (Auto) 10.4 Eosinophils (%) (Auto) 2.1 Basophils (%) (Auto) 0.6 Neutrophils # (Auto) 11.3 Lymphocytes # (Auto) 1.6 Monocytes # (Auto) 1.6 Eosinophils # (Auto) 0.3 Basophils # (Auto) 0.1 CBC Comment DIFF FINAL Differential Comment Blood Urea Nitrogen 11 Creatinine 0.85 Random Glucose 94 Total Protein 7.4 Albumin 1.6 Calcium Level 8.7 Alkaline Phosphatase 319 Aspartate Amino Transf (AST/SGOT) 20 Alanine Aminotransferase (ALT/SGPT) 17 Total Bilirubin 0.3 Sodium Level 139 Potassium Level 3.6 Chloride Level 105 Carbon Dioxide Level 27.1 Anion Gap 7 Estimat Glomerular Filtration Rate 120 Lactic Acid Level 1.0 Date/Time Source Procedure Growth Status 01/09/18 21:44 Blood Peripheral Aerobic Blood Culture - Final NO GROWTH IN 5 DAYS Complete 01/09/18 21:44 Blood Peripheral Anaerobic Blood Culture - Final NO GROWTH IN 5 DAYS Complete 18 10:10 Stool Stool Stool Occult Blood (ESTRADA) - Final HEMOCCULT NEGATIVE Complete 01/14/18 18:17 Wound Foot Fungal Smear - Final NO FUNGAL ELEMENTS SEEN. Resulted 01/14/18 18:17 Wound Foot Fungal Culture Pending Resulted Assessment and Plan Assessment: (1) Peripheral vascular disease Status: Acute (2) Diabetic foot infection Status: Acute Plan POD#7 S/p R LE bypass Bypass patent Pt continues w/ good Doppler signals in right foot PLAN Pt clear for d/c from a vascular standpoint Arranged out pt f/u with a surveillance DARRIUS Discussed post operative care and management w/ pt and Continue PT/OOB TC/Ambulate ad rachael from a vascular surgery standpoint Continue Foot wound care per podiatry Kasey Caldwell NP [facility]/Screen [phone] Discharge Planning clear for d/c from a vascular surgery standpoint Kasey Caldwell January 19, 2018 10:37
[2018-01-19] MEDS: MORPHINE SULFATE 4 MG/ML INJ IV PUSH PRN (10:51)
--- NOTE | 2018-01-19 11:29 | RADRPT ---
EXAM DATE: 01/19/2018 11:17 AM EDT AGE/SEX: 42 years / Male INDICATIONS: Right foot swelling. Post operative popliteal artery angioplasty . CLINICAL DATA: This is the patient's initial encounter. Patient reports that signs and symptoms have been present for 1 day and indicates a pain score of 9/10. MEDICAL/SURGICAL HISTORY: Hypertension. Diabetes. . Angioplasty. Right foot 4th metatarsal head resection. COMPARISON: [facility] [place], US LEG RIGHT VENOUS DOPPLER, 12/24/2017. . TECHNIQUE: Venous ultrasound of both lower extremities was performed from the inguinal ligament to t he proximal calf. Real-time, color Doppler and spectral tracing, compression and augmentation techni ques were used. FINDINGS: There is normal compressibility of the deep venous system from the inguinal region to the proximal ca lf. No echogenic clot is seen in the lumen of the common femoral, femoral, popliteal, and posterior tibial veins. There is a normal response of the venous system to proximal and distal augmentation an d respiration. CONCLUSION: 1. No DVT identified. Electronically signed by: Fausto Cole MD 01/19/2018 11:27 AM EDT
--- NOTE | 2018-01-19 15:14 | PD.WCN.NOT ---
Wound Consult Description: Consult ordered by for wound vac management Neg Pressure Wound Therapy Wound Location Wound Location: Right lower extremity [place] 4th digit Wound Description Length: 4.8cm Width: 4.0cm Depth: 3.0cm Wound bed appearance: 60% Beefy red granular tissue 30% moist exposed tendon 10% black cauterized tissue Periwound appearance: Unremarkable Settings Suction: 125 mmHg, Continuous Intensity: Low Other Information: Bridged, Windowpaned, Mushroomed Foam type: Black, White Number of pieces: 2 Additonal Information Patient was seen today by technical writer and editor on for wound vac management.Psychiatric Social Worker received Vocera call from [employer] [place] stating shift change report nurse stated wound vac malfunctioning all night.Psychiatric Social Worker requested moist to dry dressing be applied immediately till technical writer and editor able to replace vac.Patient alert and oriented x4 laying in bed with right lower extremity elevated on pillow.Moist to dry dressing removed from right lower extremity.Wound cleansed with normal saline pat dry.Skin prep applied to periwound and bridging area.Moist white foam placed in wound bed cut to fit covering exposed tendon.White foam covered with black foam and bridge to top of foot .Stoma paste applied to wound edges to protect periwound maintain seal.Suction track pad applied at 125mmHG low continuous suction with no leak noted.Toni wrap applied for extra support.Patient tolerated wound care well.History on Wound Vac states blockage alarm initiated on 01/17 @ 1037am seal was not maintain since initial alarm.Zulay nurse air battle manager notified. Jaimee Patel [facility] January 19, 2018 15:14
--- NOTE | 2018-01-19 15:56 | HHI.IDPN ---
Subjective Subjective Remarks doing better no fever cleared by vascular Antibiotics Unasyn given a dose of vanco today Lines PIV with no e/o infection Past Medical History Hypertension Diabetes type 2 insulin requiring at one point Neuropathy Allergies: Coded Allergies: No Known Allergies (Verified Adverse Reaction, Unknown, 01/04/18) Objective . Vital Signs Date Time Temp Pulse Resp B/P (MAP) Pulse Ox O2 Delivery O2 Flow Rate FiO2 01/19/18 12:00 98.7 86 16 153/100 (117) 99 01/19/18 10:01 97 21 01/19/18 08:00 Nasal Cannula 3.00 50 01/19/18 08:00 99.0 102 16 153/88 (109) 97 01/19/18 04:00 98.5 101 20 100/58 (72) 97 01/19/18 00:00 98.3 102 20 100/58 (72) 97 01/18/18 23:00 Nasal Cannula 3.00 01/18/18 20:00 98.6 105 20 128/64 (85) 100 01/18/18 16:05 98.5 88 18 141/82 (101) 97 01/18/18 16:00 Nasal Cannula 3.00 . Laboratory Tests Test 01/18/18 17:20 White Blood Count 14.9 TH/MM3 Red Blood Count 3.22 MIL/MM3 Hemoglobin 8.3 GM/DL Hematocrit 25.1 % Mean Corpuscular Volume 78.0 FL Mean Corpuscular Hemoglobin 25.7 PG Mean Corpuscular Hemoglobin Concent 33.0 % Red Cell Distribution Width 15.5 % Platelet Count 495 TH/MM3 Mean Platelet Volume 7.2 FL Neutrophils (%) (Auto) 76.1 % Lymphocytes (%) (Auto) 10.8 % Monocytes (%) (Auto) 10.4 % Eosinophils (%) (Auto) 2.1 % Basophils (%) (Auto) 0.6 % Neutrophils # (Auto) 11.3 TH/MM3 Lymphocytes # (Auto) 1.6 TH/MM3 Monocytes # (Auto) 1.6 TH/MM3 Eosinophils # (Auto) 0.3 TH/MM3 Basophils # (Auto) 0.1 TH/MM3 CBC Comment DIFF FINAL Differential Comment Laboratory Tests Test 01/18/18 17:20 01/18/18 17:57 Blood Urea Nitrogen 11 MG/DL Creatinine 0.85 MG/DL Random Glucose 94 MG/DL Total Protein 7.4 GM/DL Albumin 1.6 GM/DL Calcium Level 8.7 MG/DL Alkaline Phosphatase 319 U/L Aspartate Amino Transf (AST/SGOT) 20 U/L Alanine Aminotransferase (ALT/SGPT) 17 U/L Total Bilirubin 0.3 MG/DL Sodium Level 139 MEQ/L Potassium Level 3.6 MEQ/L Chloride Level 105 MEQ/L Carbon Dioxide Level 27.1 MEQ/L Anion Gap 7 MEQ/L Estimat Glomerular Filtration Rate 120 ML/MIN Lactic Acid Level 1.0 mmol/L Imaging Last Impressions Abdomen X-Ray 01/17/18 1758 Signed Impressions: CONCLUSION: Normal bowel gas pattern. Chest X-Ray 01/17/18 0000 Signed Impressions: CONCLUSION: New right lung infiltrate. Foot X-Ray 01/14/18 0000 Signed Impressions: CONCLUSION: Expected postoperative findings from fourth digit mid metatarsal amputation. Upper Extremity Ultrasound 01/13/18 0000 Signed Impressions: CONCLUSION: 1. No evidence of DVT. Lower Extremity Ultrasound 01/06/18 0000 Signed Impressions: Service Date/Time: Saturday, January 06, 2018 17:05 - CONCLUSION: No DVT. Gibson Isaac MD Foot MRI 01/06/18 0000 Signed Impressions: Service Date/Time: Saturday, January 06, 2018 15:27 - CONCLUSION: Generalized edema with minimal enhancement in the operative bed, nonspecific. No evidence rales myelitis. Antonio Cole MD FACR Lower Extremity CT 01/04/18 0000 Signed Impressions: Service Date/Time: Thursday, January 04, 2018 17:37 - CONCLUSION: 1. Soft tissue ulcer in the lateral proximal forefoot with subcutaneous air extending to the base of the fourth digit. No definite osseous abnormality to suggest osteomyelitis. Consider MRI examination if there is continued clinical concern. Giorgi Rider MD Physical Exam CONSTITUTIONAL/GENERAL: This is an obese male patient, in no apparent distress. Awake and alert. Appears comfortable. SKIN: No jaundice, rashes, or lesions. HEENT: NC/AT. EOMI. Sclera anicteric. No nasal bleeding or discharge. MMM. RESPIRATORY: Nonlabored. Clear to auscultation bilaterally. No wheezing or rhonchi noted. CARDIOVASCULAR: Regular rate and rhythm without any murmurs, rubs or gallops. GI: abdomen much less distended but non tender unable to aplpate any organomegaly or masses MUSCULOSKELETAL: Extremities without clubbing, cyanosis, improved edemas R foot with VAC in place RUE edema markedly improved thigh incision dry, with no drainage Lower incision dry, clean and well approximated. No d/c R foot with VAC in place with serosang d/c NEUROLOGICAL: Awake and alert. Motor and sensory grossly within normal limits. Follows commands. Clear speech. Moves all extremities. PSYCHIATRIC: No obvious anxiety/depression. no apparent hallucinations or other psychotic thought process. Calm and pleasant. Cooperative with exam. 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
[2018-01-19] MEDS: ENOXAPARIN SODIUM 40 MG/0.4 ML SYRINGE SQ SCH (17:34)
[2018-01-19] MEDS: cloNIDine HCL 0.1 MG TAB PO PRN (20:03)
[2018-01-19] MEDS: ATORVASTATIN 40 MG TAB PO SCH (20:03)
--- NOTE | 2018-01-19 20:11 | RADRPT ---
EXAM DATE: 01/19/2018 7:59 PM EDT AGE/SEX: 42 years / Male INDICATIONS: Left arm swelling. CLINICAL DATA: This is the patient's subsequent encounter. Patient reports that signs and symptoms h ave been present for 1 day and indicates a pain score of 7/10. MEDICAL/SURGICAL HISTORY: Hypertension. Diabetes. . Right ankle surgery. COMPARISON: Left arm venous Doppler 01/13/2018. FINDINGS: There is spontaneous flow documented in the brachial, basilic, cephalic, axillary, and subclavian vei ns. The vessels are compressible and augmentation response is documented. No filling defects are se en. The flow is phasic with respiration. Direction of flow in the jugular vein is caudal. CONCLUSION: 1. No evidence of DVT. No significant changes. Electronically signed by: Bruno Ellis MD 01/19/2018 8:09 PM EDT
[2018-01-20 04:36] VITALS: BP 162/97; PULSE 100; RESP 16; TEMP 99.7; O2SAT 96
[2018-01-20] MEDS: AMPICILLIN-SULBACTAM INJ 3 GM in SODIUM CHLORIDE 0.9% INJ 100 ML IV SCH ×4 (04:39→23:06)
[2018-01-20] MEDS: HYDROmorphone HCL 2 MG TAB PO PRN ×4 (04:39→23:06)
[2018-01-20 05:26] LABS: CREATININE 0.95 MG/DL (0.60-1.30)
[2018-01-20] MEDS ORDERED: PHARMACY ORDERED LAB ONE (05:45)
[2018-01-20] MEDS: INSULIN ASPART SUPPLEMENTAL SCALE SQ SCH ×4 (08:00→21:00)
[2018-01-20] MEDS: CLOPIDOGREL 75 MG TAB PO SCH (08:03)
[2018-01-20] MEDS: PANTOPRAZOLE SOD 20 MG DELAYED RELEASE TAB PO SCH (08:03)
[2018-01-20] MEDS: LISINOPRIL 10 MG TAB PO SCH (08:03)
[2018-01-20] MEDS: MORPHINE SULFATE 4 MG/ML INJ IV PUSH PRN ×2 (08:03→20:19)
[2018-01-20] MEDS: ASPIRIN 325 MG TAB PO SCH (08:03)
[2018-01-20] MEDS: GABAPENTIN 300 MG CAP PO SCH ×3 (08:03→18:07)
[2018-01-20] MEDS: DOCUSATE SODIUM 50 MG/SENNA 8.6 MG TAB PO SCH ×2 (08:03→21:00)
[2018-01-20] MEDS: INSULIN ASPAR PROT 70/30 1,000 UNITS/10 ML VIAL SQ SCH ×2 (08:04→18:07)
[2018-01-20] MEDS: SODIUM CHLORIDE 0.9% FLUSH 10 ML FLUSH IV FLUSH SCH (08:04)
[2018-01-20] MEDS: POLYETHYLENE GLYCOL 17 GM PKG PO SCH (08:04)
[2018-01-20 08:05] VITALS: BP 162/88; PULSE 80; RESP 16; TEMP 99; O2SAT 97
[2018-01-20] MEDS: COLLAGENASE OINT 30 GM TUBE TOPICAL SCH (08:05)
[2018-01-20] MEDS ORDERED: OXYC-392 PO (10:36)
--- NOTE | 2018-01-20 10:39 | HHI.PR ---
Subjective Remarks in no acute distress. has some pain to the right leg. otherwise no other new complaints. Objective Vitals Vital Signs Date Time Temp Pulse Resp B/P (MAP) Pulse Ox O2 Delivery O2 Flow Rate FiO2 01/20/18 08:08 18 01/20/18 08:05 99.0 80 16 162/88 (112) 97 01/20/18 08:00 Room Air 01/20/18 04:36 99.7 100 16 162/97 (118) 96 01/20/18 04:00 Room Air 01/20/18 00:00 Room Air 01/19/18 23:32 98.8 100 16 162/96 (118) 100 01/19/18 20:00 Room Air 01/19/18 20:00 98.9 100 16 146/98 (114) 97 01/19/18 17:06 99 21 01/19/18 16:00 98.7 97 16 98/ 100 01/19/18 12:00 98.7 86 16 153/100 (117) 99 I/O 01/19/18 01/19/18 01/19/18 01/20/18 01/20/18 01/20/18 07:00 15:00 23:00 07:00 15:00 23:00 Intake Total 1300 ml 1340 ml Output Total 1200 ml 950 ml 1300 ml Balance -1200 ml 350 ml 40 ml Intake Oral 1200 ml 1240 ml IV Total 100 ml 100 ml Output Urine Total 1200 ml 950 ml 1300 ml # Bowel Movements 1 0 Result Diagram: 01/18/18 1720 01/20/18 0445 Imaging Last Impressions Upper Extremity Ultrasound 01/19/18 0000 Signed Impressions: CONCLUSION: 1. No evidence of DVT. No significant changes. Lower Extremity Ultrasound 01/19/18 0000 Signed Impressions: CONCLUSION: 1. No DVT identified. Abdomen X-Ray 01/17/18 0434 Signed Impressions: CONCLUSION: Normal bowel gas pattern. Chest X-Ray 01/17/18 0000 Signed Impressions: CONCLUSION: New right lung infiltrate. Foot X-Ray 01/14/18 0000 Signed Impressions: CONCLUSION: Expected postoperative findings from fourth digit mid metatarsal amputation. Foot MRI 01/06/18 0000 Signed Impressions: Service Date/Time: Saturday, January 06, 2018 15:27 - CONCLUSION: Generalized edema with minimal enhancement in the operative bed, nonspecific. No evidence rales myelitis. Antonio Cole MD FACR Lower Extremity CT 01/04/18 0000 Signed Impressions: Service Date/Time: Thursday, January 04, 2018 17:37 - CONCLUSION: 1. Soft tissue ulcer in the lateral proximal forefoot with subcutaneous air extending to the base of the fourth digit. No definite osseous abnormality to suggest osteomyelitis. Consider MRI examination if there is continued clinical concern. Giorgi Rider MD Objective Remarks GENERAL: This is a well-nourished, well-developed patient, in no apparent distress. CARDIOVASCULAR: Regular rate and regular rhythm without murmurs, gallops, or rubs. RESPIRATORY: Clear to auscultation. Breath sounds equal bilaterally. No wheezes , rales, or rhonchi. GASTROINTESTINAL: Abdomen soft, non-tender, nondistended. Normal, active bowel sounds MUSCULOSKELETAL: right foot covered with clean dressing. NEURO: Alert & Oriented x4 to person, place, time, situation. Moves all ext x4 Procedures ANGIOGRAM - Moe Cullen MD DATE OF OPERATION: PREOPERATIVE DIAGNOSIS: Right lower extremity tissue loss, peripheral vascular disease. POSTOPERATIVE DIAGNOSIS: Right lower extremity tissue loss, peripheral vascular disease. PROCEDURE PERFORMED: 1. Aortogram with right lower extremity angiogram. 2. Right SFA and popliteal artery angioplasty with 5 mm balloon. 3. Left common femoral artery Angio-Seal. OPERATING SURGEON: Moe Cullen MD ANESTHESIA: Local with sedation. INDICATIONS: Mr. Garibay is a 42-year-old gentleman with right lower extremity tissue loss. He is taken to the operating room for angiographic evaluation and potential treatment. There was no prior catheter-based imaging available for my review. DESCRIPTION OF PROCEDURE: Informed consent was obtained from the patient. He was taken to the operating room and placed supine on the operating table. An appropriate timeout was taken to ensure the patient's identity, the operative site and planned procedure. The administration of antibiotics was not necessary as this is a clean procedure without the planned implantation of any foreign object. Everyone in the room agreed with timeout and we proceeded. His bilateral groins prepped and draped. Left groin was anesthetized with 1% lidocaine. A 21-gauge micropuncture needle was used to access the left common femoral artery, was exchanged using Seldinger technique through micropuncture sheath, which a 0.035 Glidewire was introduced. Micropuncture sheath was exchanged for a 4-Citizen Of [place] sheath. A VCF catheter was placed over the wire and through the sheath and aortogram, pelvic arteriogram was obtained. The Glidewire was reintroduced and navigated down to the right common femoral artery and the VCF catheter was advanced over this and a right lower extremity arteriogram was obtained. The patient was systemically heparinized with 5000 units of IV Heparin. A 0.035 Ceballos wire was introduced down to the mid SFA and the VCF catheter and 4-Citizen [place] sheath were removed and a 6-Citizen [place] 55 cm Dimitry sheath was introduced. A CXI catheter was placed over the wire into the sheath and the wire was exchanged for a [employer] wire. Using the RET[employer]OCIATE wire and CXI catheter we were able to navigate through the SFA lesion and the popliteal lesion. Both of these were angioplastied with a 5 x 200 and 5 x 80 balloon, respectively. The completion angiogram showed excellent result on recoil extravasation. We then did advance the catheter down to the popliteal artery. An angiogram was obtained. The wire, catheter and sheath were removed and the groin was closed with Angio-Seal. There were no complications. I was present and scrubbed for the entire procedure. INTERPRETATION OF IMAGES: The patient has a patent terminal aorta, common iliac arteries, hypogastric arteries and external iliac arteries, none of which have any hemodynamically significant stenoses. The right common femoral artery and profunda are patent without any hemodynamically significant stenosis. The proximal SFA is patent. The mid SFA has high-grade diffuse stenosis that was successfully angioplastied and the popliteal artery had a similar high-grade diffuse stenosis that was successfully angioplastied. The below knee popliteal artery occludes and there was no posterior tibial artery or peroneal artery proximally. The perigeniculate collaterals give rise to the posterior tibial artery in the mid to distal calf. , 09:14 AM Masoud Gates DPM DATE OF OPERATION: 01/05/2018 PREOPERATIVE DIAGNOSIS: Right fourth digit gangrene, abscess, diabetic foot infection. POSTOPERATIVE DIAGNOSIS: Right fourth digit gangrene, abscess, diabetic foot infection. PROCEDURE PERFORMED: Right fourth digit amputation, incision and drainage deep, right foot. INTRAOPERATIVE FINDINGS: Minimal bleeding. Foul odor at level of amputation site. S SPECIMENS: Fourth digit for pathology. Deep culture at amputation site for micro. ESTIMATED BLOOD LOSS: Less than 30 mL ANESTHESIA: General. DRAINS: None. TOURNIQUET: None. DISPOSITION: Returned to floor for vascular intervention and monitor of foot. May need wound VAC versus repetitive debridements versus amputation at a later date. JUSTIFICATION FOR PROCEDURE: A 42-year-old diabetic male with a history of smoking, was admitted. CT showed gas within the tissue at the base of the fourth digit. The patient was planned for vascular intervention; however, we wished to eradicate infection or at least debulk the infection first. The patient was educated on risks and benefits, need for more surgery, loss of limb. No guarantees were given or implied regarding the outcome. PROCEDURE IN DETAIL: Under mild sedation, the patient was brought into the operating room, placed on the operating table in supine position. Following the induction of general anesthesia, the patient's right lower extremity was scrubbed, prepped and draped in the usual aseptic fashion. The foot was elevated and examined. There was noted to be a necrotic, delayed capillary fill time, a putrid-smelling right fourth digit. A fishmouth mouth type incision was made disarticulating the digit down to the level of the joint. There were gas bubbles within the tissue. There was purulent drainage. There was a full-thickness eschar of the dorsum of the foot that had an odor. This was sharply unroofed down to the tendon sheath with exposed fourth metatarsal. There was no obvious signs of tracking deep within the plantar aspect of the foot or along the dorsal aspect of the foot. This was flushed with copious amounts of normal saline. Minimal Bovie and ligation was needed throughout the case. The wound was packed open, soft bandage applied. The patient was transferred from OR to PACU with all vital signs stable. The patient will be monitored after a vascular attempt. Overall prognosis is poor given the history of smoking and diabetes. I will see the patient within 1-2 days. Masoud Gates, DPM - R AK pop to PT bypass with cryo/ R PT endarterectomy with patch angioplasty. - Right foot fourth metatarsal head resection with wound VAC placement. -PICC line placement. Medications and IVs Inpatient Medications Acetaminophen (Tylenol) 650 mg Q4H PRN PO temp > 101 Last administered on 04:16; Start 01/09/18 at 20:45 Albuterol Sulfate (Albuterol Neb) 1.25 mg Q2HR NEB PRN NEB SHORTNESS OF BREATH ; Start 01/17/18 at 19:15 Albuterol/ Ipratropium (Duoneb Neb) 1 ampule Q4HR WHILE AWAKE NEB NEB Last administered on 01/17/18at 21:40; Start 01/17/18 at 20:00; Stop 01/18/18 at 06:00 ; Status DC Amlodipine Besylate (Norvasc) 5 mg DAILY PO Last administered on 01/16/18at 10: 15; Start 01/08/18 at 09:00; Status Future Hold Ampicillin Sodium/ Sulbactam Sodium 3 gm/Sodium Chloride 100 ml @ 200 mls/hr Q6H IV Last administered on 01/20/18at 04:39; Start 01/08/18 at 17:00 Aspirin (Aspirin Chew) 324 mg ONCE ONCE CHEW Last administered on 01/04/18at 13 :33; Start 01/04/18 at 13:15; Stop 01/04/18 at 13:16; Status DC Aspirin (Aspirin) 325 mg DAILY PO Last administered on 01/20/18at 08:03; Start 01/13/18 at 09:00 Aspirin (Ecotrin Ec) 81 mg DAILY PO Last administered on 01/11/18at 09:07; Start 01/06/18 at 09:00; Stop 01/12/18 at 17:16; Status DC Atorvastatin Calcium (Lipitor) 40 mg HS PO Last administered on 01/19/18at 20:03 ; Start 01/12/18 at 21:00 Bisacodyl (Dulcolax Supp) 10 mg DAILY PRN RECTAL SEVERE CONSITIPATION; Start at 14:30 Cefepime HCl 2000 mg/Sodium Chloride 100 ml @ 200 mls/hr Q12H IV Last administered on 01/05/18at 06:04; Start 01/04/18 at 18:00; Stop 01/05/18 at 12:37 ; Status DC Chlorhexidine Gluconate (Chlorhexidine 2% Cloth) 3 pack DANDY TENDER PRN TOPICAL SEE LABEL COMMENTS; Start 01/12/18 at 02:30; Stop 01/15/18 at 02:29; Status DC Clonidine (Catapres) 0.1 mg Q4H PRN PO SBP>160, DBP>90 Last administered on at 20:03; Start 01/07/18 at 15:45 Clopidogrel Bisulfate (Plavix) 75 mg DAILY PO Last administered on 01/20/18 08 :03; Start 01/08/18 at 09:00 Collagenase (Santyl Oint) 1 applic DAILY TOPICAL Last administered on 08:05; Start 01/14/18 at 09:00 Dextrose (D25w Inj) 10 ml ONCE ONCE IV PUSH Last administered on 01/04/18at 14: 28; Start 01/04/18 at 13:45; Stop 01/04/18 at 13:46; Status DC Dextrose (D50w (Vial) Inj) 50 ml UNSCH PRN IV PUSH HYPOGLYCEMIA-SEE COMMENTS; Start 01/04/18 at 17:45; Stop 01/06/18 at 10:41; Status DC Enoxaparin Sodium (Lovenox Inj) 40 mg Q24H SQ Last administered on 01/19/18at 17 :34; Start 01/15/18 at 18:00 Furosemide (Lasix Inj) 20 mg NOW ONCE IV PUSH Last administered on 01/17/18at 18:15; Start 01/17/18 at 18:15; Stop 01/17/18 at 18:16; Status DC Gabapentin (Neurontin) 300 mg TID PO Last administered on 01/20/18 08:03; Start 01/04/18 at 18:00 Glucagon (Glucagon Inj) 1 mg UNSCH PRN OTHER HYPOGLYCEMIA-SEE COMMENTS; Start 01/04/18 at 17:45; Stop 01/06/18 at 10:41; Status DC Heparin Sodium (Porcine) (Heparin Central Flush) See Protocol UNSCH PRN IV FLUSH SEE PROTOCOL TABLE Last administered on 01/20/18at 05:23; Start 01/18/18 at 17:15 Hydromorphone HCl (Dilaudid) 2 mg Q4H PRN PO PAIN SCALE 6 TO 10 Last administered on 01/20/18 04:39; Start 01/12/18 at 16:30 Insulin Aspart (NovoLOG SUPPLEMENTAL SCALE) 1 ACHS SLIDING SCALE SQ Last administered on 01/19/18at 17:36; Start 01/06/18 at 12:00 Insulin Aspart Prota 70%/Aspart 30% (NovoLOG MIX 70/ 30 INJ) 30 units BID@0800, 1700 SQ Last administered on 01/20/18 08:04; Start 01/06/18 at 17:00 Iron Sucrose 200 mg/Sodium Chloride 110 ml @ 110 mls/hr DAILY IV Last administered on 01/07/18 12:23; Start 01/05/18 at 15:00; Stop 01/07/18 at 09:59 ; Status DC Lactated Ringer's 1,000 ml @ 30 mls/hr Q24H PRN IV SEE LABEL COMMENTS Last administered on 01/12/18at 10:55; Start 01/12/18 at 02:30; Stop 01/15/18 at 02:29 ; Status DC Lactulose (Lactulose Liq) 30 ml DAILY PRN PO SEVERE CONSITIPATION; Start at 14:30 Lisinopril (Prinivil) 10 mg DAILY PO Last administered on 01/20/18 08:03; Start 01/05/18 at 09:00 Magnesium Hydroxide (Milk Of Magnesia Liq) 30 ml Q12H PRN PO Mild constipation ; Start 01/08/18 at 14:30 Miscellaneous Information ([facility] [place] [place] Nursing Information) ALL NURSING DEPARTME... UNSCH PRN .XX SEE LABEL COMMENTS; Start 01/14/18 at 18:30; Stop 01/15/18 at 18: 29; Status DC Miscellaneous Information ([facility] [place] [place] Pharmacy Ordered Lab Info) SPECIFIC LAB TO BE ROSALEE... ONCE ONCE .XX Last administered on 01/06/18at 12:45; Start 01/06/18 at 12:45; Stop 01/06/18 at 12:46; Status DC Miscellaneous Information ([facility] [place] [place] Post-op Orders (for Pharmacy)) STAT ONCE XX ; Start 01/14/18 at 18:30; Stop 01/14/18 at 18:46; Status DC Morphine Sulfate (Morphine Inj) 2 mg Q1H PRN IV PUSH BREAKTHROUGH PAIN Last administered on 01/20/18at 08:03; Start 01/12/18 at 16:30 Naloxone HCl (Narcan Inj) 0.4 mg UNSCH PRN IV PUSH SEE LABEL COMMENTS; Start at 11:00 Ondansetron HCl (Zofran Odt) 8 mg Q6H PRN PO NAUSEA; Start 01/14/18 at 21:45 Oxycodone HCl (Roxicodone) 5 mg Q4H PRN PO PAIN SCALE 1 TO 5 Last administered on 01/19/18at 17:34; Start 01/12/18 at 16:30 Oxycodone/ Acetaminophen (Percocet 7.5-325 Mg) 1 tab Q6H PRN PO PAIN SCALE 6 TO 10 Last administered on 01/10/18at 09:06; Start 01/04/18 at 18:00; Stop at 11:02; Status DC Oxycodone/ Acetaminophen (Percocet 5-325 Mg) 1 tab Q6HR PRN PO PAIN SCALE 3 TO 5; Start 01/04/18 at 18:00; Stop 01/12/18 at 18:15; Status DC Oxycodone/ Acetaminophen (Percocet 10-325 Mg) 1 tab Q6H PRN PO PAIN SCALE 6 TO 10 Last administered on 01/11/18at 18:34; Start 01/10/18 at 11:00; Stop 01/12/18 at 18:15; Status DC Pantoprazole Sodium (Protonix) 20 mg DAILY PO Last administered on 01/20/18at 08 :03; Start 01/05/18 at 09:00 Pharmacy Profile Note 0 ml @ 0 mls/hr UNSCH OTHER ; Start 01/17/18 at 19:15; Stop 01/19/18 at 10:30; Status DC Piperacillin Sod/ Tazobactam Sod 50 ml @ 100 mls/hr Q6H IV Last administered on 01/08/18at 14:55; Start 01/07/18 at 21:00; Stop 01/08/18 at 15:48; Status DC Polyethylene Glycol (Miralax) 17 gm DAILY PO Last administered on 01/19/18at 08: 31; Start 01/09/18 at 09:00 Povidone Iodine (Betadine 5% Antisepsis Kit) 1 applic DANDY TENDER PRN EACH NARE SEE LABEL COMMENTS; Start 01/12/18 at 02:30; Stop 01/15/18 at 02:29; Status DC Senna/Docusate Sodium (Trixie-Colace) 1 tab BID PO Last administered on at 08:03; Start 01/08/18 at 15:00 Sennosides (Senokot) 17.2 mg Q12H PRN PO Moderate constipation; Start 01/08/18 at 14:30 Sodium Chloride (NS Flush) UNSCH PRN IV FLUSH SEE PROTOCOL TABLE; Start at 17:15 Vancomycin HCl 1000 mg/Sodium Chloride 250 ml @ 250 mls/hr Q12H IV ; Start at 06:00; Stop 01/05/18 at 06:00; Status DC Vancomycin HCl 1250 mg/Sodium Chloride 262.5 ml @ 250 mls/hr Q12H IV Last administered on 01/06/18at 13:24; Start 01/05/18 at 01:00; Stop 01/06/18 at 15:21 ; Status DC Vancomycin HCl 1500 mg/Sodium Chloride 515 ml @ 250 mls/hr Q18H IV Last administered on 01/07/18at 05:20; Start 01/07/18 at 06:00; Stop 01/07/18 at 14:48 ; Status DC Vancomycin HCl 2000 mg/Sodium Chloride 520 ml @ 257.5 mls/ hr Q12H IV Last administered on 01/19/18at 06:00; Start 01/19/18 at 06:00; Stop 01/19/18 at 10:30 ; Status DC Zolpidem Tartrate (Ambien) 5 mg ONCE ONCE PO Last administered on 01/04/18at 22 :40; Start 01/04/18 at 22:15; Stop 01/04/18 at 22:16; Status DC A/P Problem List: (1) Leukocytosis ICD Code: D72.829 - Elevated white blood cell count, unspecified Status: Acute (2) Peripheral vascular disease ICD Code: I73.9 - Peripheral vascular disease, unspecified Status: Acute (3) Diabetic foot infection ICD Code: E11.628 - Type 2 diabetes mellitus with other skin complications; L08.9 - Local infection of the skin and subcutaneous tissue, unspecified Status: Acute (4) Renal insufficiency ICD Code: N28.9 - Disorder of kidney and ureter, unspecified (5) Hypertension ICD Code: I10 - Essential (primary) hypertension (6) DVT (deep venous thrombosis) ICD Code: I82.409 - Acute embolism and thrombosis of unspecified deep veins of unspecified lower extremity Assessment and Plan A/P Sepsis secondary to diabetic right foot infection with dry gangrene 4th digit with possible abscess on exam and possible underlying OM -s/p right fourth toe amputation and I/D of the right foot -s/p Right foot fourth metatarsal head resection with wound VAC placement. -Blood cultures negative. -initial wound culture with MSSA and Enterococcus Faecalis -on Unasyn per ID- till bone biopsy resulted. -podiatry f/u appreciated; cleared for discharge with wound vac. -ID following. Suspected dry gangrene Peripheral vascular disease -S/P angioplasty January [address] Cullen -s/p R AK pop to PT bypass with cryo/R PT endarterectomy with patch angioplasty on 01/12. -continue aspirin/ plavix and statin -f/u with vascular surgery as outpatient. left arm swelling/pain; venous doppler negative for DVT; continue with pain control. right leg swelling- post-op; venous doppler with no DVT. Acute kidney injury superimposed on CKD - improved w/ IVF -will monitor. Microcytic anemia- chronic disease? -stool for blood negative. -a/p PRBC transfusion with improved H/H. -monitor H/H Diabetes type 2 -Hold metformin for now, sliding scale with Accu-Chek -resumed insulin - -changed the diet to 1800 calos ADA -continue to monitor. medical noncompliance due to lack of insurance and uncontrolled diabetes Diabetic neuropathy -Continue on gabapentin Hypertension- overall better. -Continue lisinopril and Norvasc. -will monitor. DVT prophylaxis with subq Lovenox. Discharge Planning hopefully soon- when bone biopsy resulted and cleared by ID. Problem Qualifiers (1) Leukocytosis: Qualified Codes: D72.829 - Elevated white blood cell count, unspecified Katrina Ruiz MD January 20, 2018 10:39
[2018-01-20] MEDS ORDERED: ASPI81TA23 PO (10:42)
[2018-01-20 12:05] VITALS: BP 158/80; PULSE 78; RESP 16; TEMP 98.4; O2SAT 98
[2018-01-20 13:36] VITALS: O2SAT 98
[2018-01-20 16:05] VITALS: BP 191/101; PULSE 100; RESP 16; TEMP 98.9; O2SAT 100
[2018-01-20] MEDS: ENOXAPARIN SODIUM 40 MG/0.4 ML SYRINGE SQ SCH (18:08)
[2018-01-20] MEDS: cloNIDine HCL 0.1 MG TAB PO PRN ×2 (18:08→20:18)
--- NOTE | 2018-01-20 19:16 | HHI.IDPN ---
Subjective Subjective Remarks doing better no fever cleared by vascular Antibiotics Unasyn given a dose of vanco today Lines PIV with no e/o infection Past Medical History Hypertension Diabetes type 2 insulin requiring at one point Neuropathy Allergies: Coded Allergies: No Known Allergies (Verified Allergy, Unknown, 01/19/18) Objective . Vital Signs Date Time Temp Pulse Resp B/P (MAP) Pulse Ox O2 Delivery O2 Flow Rate FiO2 01/20/18 16:05 98.9 100 16 191/101 (131) 100 01/20/18 13:36 98 21 01/20/18 12:05 98.4 78 16 158/80 (106) 98 01/20/18 12:04 18 01/20/18 08:08 18 01/20/18 08:05 99.0 80 16 162/88 (112) 97 01/20/18 08:00 Room Air 01/20/18 04:36 99.7 100 16 162/97 (118) 96 01/20/18 04:00 Room Air 01/20/18 00:00 Room Air 01/19/18 23:32 98.8 100 16 162/96 (118) 100 01/19/18 20:00 Room Air 01/19/18 20:00 98.9 100 16 146/98 (114) 97 01/20/18 01/20/18 01/21/18 15:00 23:00 07:00 Intake Total 520 ml Output Total 1600 ml Balance -1080 ml Intake Oral 520 ml Output Urine Total 1600 ml # Bowel Movements 0 . Laboratory Tests Test 01/20/18 04:45 Creatinine 0.95 MG/DL Estimat Glomerular Filtration Rate 106 ML/MIN Imaging Last Impressions Abdomen X-Ray 01/17/18 175 Signed Impressions: CONCLUSION: Normal bowel gas pattern. Chest X-Ray 01/17/18 0000 Signed Impressions: CONCLUSION: New right lung infiltrate. Foot X-Ray 01/14/18 0000 Signed Impressions: CONCLUSION: Expected postoperative findings from fourth digit mid metatarsal amputation. Upper Extremity Ultrasound 01/13/18 0000 Signed Impressions: CONCLUSION: 1. No evidence of DVT. Lower Extremity Ultrasound 01/06/18 0000 Signed Impressions: Service Date/Time: Saturday, January 06, 2018 17:05 - CONCLUSION: No DVT. Gibson Isaac MD Foot MRI 01/06/18 0000 Signed Impressions: Service Date/Time: Saturday, January 06, 2018 15:27 - CONCLUSION: Generalized edema with minimal enhancement in the operative bed, nonspecific. No evidence rales myelitis. Antonio Cole MD FACR Lower Extremity CT 01/04/18 0000 Signed Impressions: Service Date/Time: Thursday, January 04, 2018 17:37 - CONCLUSION: 1. Soft tissue ulcer in the lateral proximal forefoot with subcutaneous air extending to the base of the fourth digit. No definite osseous abnormality to suggest osteomyelitis. Consider MRI examination if there is continued clinical concern. Giorgi Rider MD Physical Exam CONSTITUTIONAL/GENERAL: This is an obese male patient, in no apparent distress. Awake and alert. Appears comfortable. SKIN: No jaundice, rashes, or lesions. MUSCULOSKELETAL: Extremities without clubbing, cyanosis, improved edemas R foot with VAC in place NEUROLOGICAL: Awake and alert. Motor and sensory grossly within normal limits. Follows commands. Clear speech. Moves all extremities. PSYCHIATRIC: No obvious anxiety/depression. no apparent hallucinations or other psychotic thought process. Calm and pleasant. Cooperative with exam. PIV with no e/o infection Assessment & Plan Remarks DFI, suspected osteomyelitis of R foot, 4 th MT - P path - clx + MSSA R 4th toe gangrene sp amputation surface clx growing MSSA and Enterococcus GPC in op clx Confirmed PVD sp revasc'n RUE DVT ARF Marked fluid retention: resolved Abd distention / asceites: reslved RLE edema , r/o DVT: nearly resolved cont Unasyn for now anticipate dc on Rocephinev 2 gm IV daily + augmentin anticipate 6 weeks from the day of surgery awaiting path for final duration rec's Janeen Bolanos MD January 20, 2018 19:16
--- NOTE | 2018-01-20 19:17 | HHI.FF ---
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 [] May leave port accessed during therapy. [] May leave peripheral site accessed for duration of therapy. [x] If patient has SOB or respiratory distress, check oxygen saturation. If less than 90% or clinical signs of respiratory distress, administer oxygen at 2 L/min. via nasal cannula and notify physician. [x] Anaphylaxis/Reaction orders: * Stop infusion. * Keep IV line open with saline flush. * Notify physician. * Monitor vital signs every 15 minutes until symptoms resolve. * Check Oxygen saturation; Oxygen at 2 L/min. via nasal cannula if less than 90% or clinical signs of respiratory distress. * Administer diphenhydramine (Benadryl) 25 mg IV STAT, (unless patient has received as pre-med). May repeat once, if necessary. * Solu-Cortef 250 mg IVP over 30-60 seconds, use 100 mg vials for each dissolution. * Epinephrine (1mg/1 ml) 0.3 mg subcutaneously or IVP now with any signs of respiratory distress. * Check with physician for new additional pre-med orders if patient is re- challenged or re-treated. [x] May remove PICC line when treatment complete, after confirming with Physician. [x] If the patient is admitted to the hospital, the ED, or transferred via [facility] , complete transfer form including medication reconciliation order sheet. Laboratory Tests Weekly Labs: CBC w/diff, CMP Janeen Bolanos MD January 20, 2018 19:17
[2018-01-20] MEDS ORDERED: SOLU250I IV PUSH (19:19)
[2018-01-20] MEDS ORDERED: CEFT2INJ IM (19:19)
[2018-01-20] MEDS ORDERED: EPIN1INJ21 IV PUSH (19:19)
[2018-01-20] MEDS ORDERED: EPIN1INJ21 SQ (19:19)
[2018-01-20] MEDS ORDERED: AUGM500T7 PO (19:19)
[2018-01-20 20:00] VITALS: BP 170/94; PULSE 104; RESP 20; TEMP 99.3; O2SAT 96
[2018-01-20] MEDS: ATORVASTATIN 40 MG TAB PO SCH (20:18)
[2018-01-21] VITALS (7 sets, daily range): BP systolic 145–172; BP diastolic 68–103; PULSE 93–101; RESP 16–20; TEMP 98.3–99.9; O2SAT 97–98
[2018-01-21] MEDS: HYDROmorphone HCL 2 MG TAB PO PRN ×4 (03:17→22:31)
[2018-01-21] MEDS: AMPICILLIN-SULBACTAM INJ 3 GM in SODIUM CHLORIDE 0.9% INJ 100 ML IV SCH ×4 (04:42→22:31)
[2018-01-21] MEDS: INSULIN ASPART SUPPLEMENTAL SCALE SQ SCH ×4 (08:00→21:00)
[2018-01-21] MEDS: COLLAGENASE OINT 30 GM TUBE TOPICAL SCH (09:00)
[2018-01-21] MEDS: DOCUSATE SODIUM 50 MG/SENNA 8.6 MG TAB PO SCH ×3 (09:00→22:31)
[2018-01-21] MEDS: POLYETHYLENE GLYCOL 17 GM PKG PO SCH (09:00)
[2018-01-21] MEDS: LISINOPRIL 10 MG TAB PO SCH (09:38)
[2018-01-21] MEDS: CLOPIDOGREL 75 MG TAB PO SCH (09:38)
[2018-01-21] MEDS: PANTOPRAZOLE SOD 20 MG DELAYED RELEASE TAB PO SCH (09:38)
[2018-01-21] MEDS: GABAPENTIN 300 MG CAP PO SCH ×3 (09:39→18:41)
[2018-01-21] MEDS: INSULIN ASPAR PROT 70/30 1,000 UNITS/10 ML VIAL SQ SCH ×2 (09:40→19:14)
[2018-01-21] MEDS: SODIUM CHLORIDE 0.9% FLUSH 10 ML FLUSH IV FLUSH SCH (09:40)
--- NOTE | 2018-01-21 10:35 | HHI.PR ---
Subjective Remarks No overnight events. Bilateral lower extremity swelling better, right foot pain minimal. Wound VAC in place, not a lot of output. Denies chest pain, shortness of breath, fever. Objective Vitals Vital Signs Date Time Temp Pulse Resp B/P (MAP) Pulse Ox O2 Delivery O2 Flow Rate FiO2 01/21/18 08:05 98.8 97 19 165/103 (123) 98 01/21/18 04:00 99.9 99 20 145/72 (96) 97 01/21/18 00:00 Room Air 01/21/18 00:00 98.3 98 20 171/91 (117) 97 01/20/18 20:00 Room Air 01/20/18 20:00 99.3 104 20 170/94 (119) 96 01/20/18 16:05 98.9 100 16 191/101 (131) 100 01/20/18 13:36 98 21 01/20/18 12:05 98.4 78 16 158/80 (106) 98 01/20/18 12:04 18 I/O 01/20/18 01/20/18 01/20/18 01/21/18 01/21/18 01/21/18 07:00 15:00 23:00 07:00 15:00 23:00 Intake Total 1340 ml 520 ml 1200 ml Output Total 1300 ml 1600 ml 1225 ml Balance 40 ml -1080 ml -25 ml Intake Oral 1240 ml 520 ml 1000 ml IV Total 100 ml 200 ml Output Urine Total 1300 ml 1600 ml 1225 ml # Bowel Movements 0 0 0 Result Diagram: 01/18/18 1720 01/20/18 0445 Imaging Last Impressions Upper Extremity Ultrasound 01/19/18 0000 Signed Impressions: CONCLUSION: 1. No evidence of DVT. No significant changes. Lower Extremity Ultrasound 01/19/18 0000 Signed Impressions: CONCLUSION: 1. No DVT identified. Abdomen X-Ray 01/17/18 1400 Signed Impressions: CONCLUSION: Normal bowel gas pattern. Chest X-Ray 01/17/18 0000 Signed Impressions: CONCLUSION: New right lung infiltrate. Foot X-Ray 01/14/18 0000 Signed Impressions: CONCLUSION: Expected postoperative findings from fourth digit mid metatarsal amputation. Foot MRI 01/06/18 0000 Signed Impressions: Service Date/Time: Saturday, January 06, 2018 15:27 - CONCLUSION: Generalized edema with minimal enhancement in the operative bed, nonspecific. No evidence rales myelitis. Antonio Cole MD FACR Lower Extremity CT 01/04/18 0000 Signed Impressions: Service Date/Time: Thursday, January 04, 2018 17:37 - CONCLUSION: 1. Soft tissue ulcer in the lateral proximal forefoot with subcutaneous air extending to the base of the fourth digit. No definite osseous abnormality to suggest osteomyelitis. Consider MRI examination if there is continued clinical concern. Giorgi Rider MD Objective Remarks Not in distress Regular rate and rhythm Clear breath sounds Abdomen soft nontender Wound VAC in place right foot, output is nil. 1+ bilateral lower extremity edema Alert awake and oriented 3, no focal deficits. Procedures ANGIOGRAM - Moe Cullen MD DATE OF OPERATION: PREOPERATIVE DIAGNOSIS: Right lower extremity tissue loss, peripheral vascular disease. POSTOPERATIVE DIAGNOSIS: Right lower extremity tissue loss, peripheral vascular disease. PROCEDURE PERFORMED: 1. Aortogram with right lower extremity angiogram. 2. Right SFA and popliteal artery angioplasty with 5 mm balloon. 3. Left common femoral artery Angio-Seal. OPERATING SURGEON: Moe Cullen MD ANESTHESIA: Local with sedation. INDICATIONS: Mr. Garibay is a 42-year-old gentleman with right lower extremity tissue loss. He is taken to the operating room for angiographic evaluation and potential treatment. There was no prior catheter-based imaging available for my review. DESCRIPTION OF PROCEDURE: Informed consent was obtained from the patient. He was taken to the operating room and placed supine on the operating table. An appropriate timeout was taken to ensure the patient's identity, the operative site and planned procedure. The administration of antibiotics was not necessary as this is a clean procedure without the planned implantation of any foreign object. Everyone in the room agreed with timeout and we proceeded. His bilateral groins prepped and draped. Left groin was anesthetized with 1% lidocaine. A 21-gauge micropuncture needle was used to access the left common femoral artery, was exchanged using Seldinger technique through micropuncture sheath, which a 0.035 Glidewire was introduced. Micropuncture sheath was exchanged for a 4-Latvian sheath. A VCF catheter was placed over the wire and through the sheath and aortogram, pelvic arteriogram was obtained. The Glidewire was reintroduced and navigated down to the right common femoral artery and the VCF catheter was advanced over this and a right lower extremity arteriogram was obtained. The patient was systemically heparinized with 5000 units of IV Heparin. A 0.035 Ceballos wire was introduced down to the mid SFA and the VCF catheter and 4-Latvian sheath were removed and a 6-Latvian 55 cm Dimitry sheath was introduced. A CXI catheter was placed over the wire into the sheath and the wire was exchanged for a [employer] wire. Using the [employer]ER wire and CXI catheter we were able to navigate through the SFA lesion and the popliteal lesion. Both of these were angioplastied with a 5 x 200 and 5 x 80 balloon, respectively. The completion angiogram showed excellent result on recoil extravasation. We then did advance the catheter down to the popliteal artery. An angiogram was obtained. The wire, catheter and sheath were removed and the groin was closed with Angio-Seal. There were no complications. I was present and scrubbed for the entire procedure. INTERPRETATION OF IMAGES: The patient has a patent terminal aorta, common iliac arteries, hypogastric arteries and external iliac arteries, none of which have any hemodynamically significant stenoses. The right common femoral artery and profunda are patent without any hemodynamically significant stenosis. The proximal SFA is patent. The mid SFA has high-grade diffuse stenosis that was successfully angioplastied and the popliteal artery had a similar high-grade diffuse stenosis that was successfully angioplastied. The below knee popliteal artery occludes and there was no posterior tibial artery or peroneal artery proximally. The perigeniculate collaterals give rise to the posterior tibial artery in the mid to distal calf. , 09:14 AM Masoud Gates DPM DATE OF OPERATION: 01/05/2018 PREOPERATIVE DIAGNOSIS: Right fourth digit gangrene, abscess, diabetic foot infection. POSTOPERATIVE DIAGNOSIS: Right fourth digit gangrene, abscess, diabetic foot infection. PROCEDURE PERFORMED: Right fourth digit amputation, incision and drainage deep, right foot. INTRAOPERATIVE FINDINGS: Minimal bleeding. Foul odor at level of amputation site. S SPECIMENS: Fourth digit for pathology. Deep culture at amputation site for micro. ESTIMATED BLOOD LOSS: Less than 30 mL ANESTHESIA: General. DRAINS: None. TOURNIQUET: None. DISPOSITION: Returned to floor for vascular intervention and monitor of foot. May need wound VAC versus repetitive debridements versus amputation at a later date. JUSTIFICATION FOR PROCEDURE: A 42-year-old diabetic male with a history of smoking, was admitted. CT showed gas within the tissue at the base of the fourth digit. The patient was planned for vascular intervention; however, we wished to eradicate infection or at least debulk the infection first. The patient was educated on risks and benefits, need for more surgery, loss of limb. No guarantees were given or implied regarding the outcome. PROCEDURE IN DETAIL: Under mild sedation, the patient was brought into the operating room, placed on the operating table in supine position. Following the induction of general anesthesia, the patient's right lower extremity was scrubbed, prepped and draped in the usual aseptic fashion. The foot was elevated and examined. There was noted to be a necrotic, delayed capillary fill time, a putrid-smelling right fourth digit. A fishmouth mouth type incision was made disarticulating the digit down to the level of the joint. There were gas bubbles within the tissue. There was purulent drainage. There was a full-thickness eschar of the dorsum of the foot that had an odor. This was sharply unroofed down to the tendon sheath with exposed fourth metatarsal. There was no obvious signs of tracking deep within the plantar aspect of the foot or along the dorsal aspect of the foot. This was flushed with copious amounts of normal saline. Minimal Bovie and ligation was needed throughout the case. The wound was packed open, soft bandage applied. The patient was transferred from OR to PACU with all vital signs stable. The patient will be monitored after a vascular attempt. Overall prognosis is poor given the history of smoking and diabetes. I will see the patient within 1-2 days. Masoud Gates, CHERISE - R [place] pop to PT bypass with cryo/ R PT endarterectomy with patch angioplasty. - Right foot fourth metatarsal head resection with wound VAC placement. -PICC line placement. A/P Problem List: (1) Leukocytosis ICD Code: D72.829 - Elevated white blood cell count, unspecified Status: Acute (2) Peripheral vascular disease ICD Code: I73.9 - Peripheral vascular disease, unspecified Status: Acute (3) Diabetic foot infection ICD Code: E11.628 - Type 2 diabetes mellitus with other skin complications; L08.9 - Local infection of the skin and subcutaneous tissue, unspecified Status: Acute (4) Renal insufficiency ICD Code: N28.9 - Disorder of kidney and ureter, unspecified (5) Hypertension ICD Code: I10 - Essential (primary) hypertension (6) DVT (deep venous thrombosis) ICD Code: I82.409 - Acute embolism and thrombosis of unspecified deep veins of unspecified lower extremity Assessment and Plan Sepsis secondary to diabetic right foot infection with dry gangrene 4th digit with possible abscess on exam and possible underlying OM -s/p right fourth toe amputation and I/D of the right foot -s/p Right foot fourth metatarsal head resection with wound VAC placement. -Blood cultures negative. Superficial wound culture with MSSA and Enterococcus Faecalis, intraoperative culture grew MSSA. Infectious disease following, continue Unasyn, awaiting pathology report. On discharge, will be switched to ceftriaxone 2 g daily with Augmentin for about 6 weeks starting from surgical date. Cleared by vascular surgery. Suspected dry gangrene Peripheral vascular disease -S/P angioplasty January [address] Cullen -s/p R [place] pop to PT bypass with cryo/R PT endarterectomy with patch angioplasty on 01/12. -continue aspirin/ plavix and statin -f/u with vascular surgery as outpatient, cleared for discharge. left arm swelling/pain; venous doppler negative for DVT; continue with pain control. right leg swelling- post-op; venous doppler with no DVT. Acute kidney injury superimposed on CKD-resolved with volume resuscitation. Microcytic anemia- chronic disease? -stool for blood negative. -s/p PRBC transfusion with improved H/H. -monitor H/H Diabetes type 2 -Hold metformin for now, sliding scale with Accu-Chek, continue insulin NPH, continue ADA diet. medical noncompliance due to lack of insurance and uncontrolled diabetes Diabetic neuropathy -Continue on gabapentin Bilateral lower extremity edema-we will give a dose of Lasix. Recheck BMP Hypertension-not controlled, continue lisinopril, resume Norvasc, currently on hold, lasix one dose today. DVT prophylaxis with subq Lovenox. Problem Qualifiers (1) Leukocytosis: Qualified Codes: D72.829 - Elevated white blood cell count, unspecified Eren Mayorga MD January 21, 2018 10:35
[2018-01-21] MEDS: ASPIRIN 325 MG TAB PO SCH (11:24)
[2018-01-21] MEDS: MORPHINE SULFATE 4 MG/ML INJ IV PUSH PRN (11:29)
[2018-01-21] MEDS ORDERED: FUROSEMIDE 40 MG/4 ML VIAL IV PUSH ONE (12:30)
--- NOTE | 2018-01-21 15:46 | HHI.PR ---
Addendum to Inpatient Note Additional Information dw pahtologist Dr Sanchez + osteo margins are free Janeen Bolanos MD January 21, 2018 15:46
--- NOTE | 2018-01-21 15:48 | HHI.PR ---
Addendum to Inpatient Note Addendum Reason: Additional Documentation Additional Information OK to dc pt with CFTX and Augmentin x 40 days Janeen Bolanos MD January 21, 2018 15:48
--- NOTE | 2018-01-21 16:58 | HHI.DS ---
Discharge Summary Admission Date January 04, 2018 at 14:19 Discharge Date: Jan 22, 2018 Admitting Diagnosis Diabetic foot ulcer, leukocytosis, peripheral vascular disease (1) Leukocytosis ICD Code: D72.829 - Elevated white blood cell count, unspecified Status: Acute (2) Peripheral vascular disease ICD Code: I73.9 - Peripheral vascular disease, unspecified Status: Acute (3) Diabetic foot infection ICD Code: E11.628 - Type 2 diabetes mellitus with other skin complications; L08.9 - Local infection of the skin and subcutaneous tissue, unspecified Status: Acute (4) Renal insufficiency ICD Code: N28.9 - Disorder of kidney and ureter, unspecified (5) Hypertension ICD Code: I10 - Essential (primary) hypertension (6) DVT (deep venous thrombosis) ICD Code: I82.409 - Acute embolism and thrombosis of unspecified deep veins of unspecified lower extremity Procedures 1. Aortogram with right lower extremity angiogram. 2. Right SFA and popliteal artery angioplasty with 5 mm balloon. 3. Left common femoral artery Angio-Seal. Brief History - From Admission Patient is a 43-year-old male diabetic insulin requiring, hypertension who about 2 weeks prior to admission complaining complained of swelling of the right foot. Patient with fever and chills. Next day developed blister on the anterior aspect of the foot and sought consult with the PCP where it was initially told it was gout.. patient also states that he was also placed on Bactrim for 5 days. 4 days later with worsening swelling. Draining foul- smelling yellowish exudate minimal per . He was seen in follow-up by primary care physician and was sent here for further evaluation and management. Patient states good hypoglycemic awareness. He states that he was just also recently started on 7030 10 units twice a day. Patient complains of neuropathic pain for which he takes gabapentin. CBC/BMP: 01/18/18 1720 01/20/18 0445 Significant Findings Laboratory Tests Test 01/18/18 17:20 01/18/18 17:57 01/20/18 04:45 White Blood Count 14.9 TH/MM3 (4.0-11.0) Red Blood Count 3.22 MIL/MM3 (4.50-5.90) Hemoglobin 8.3 GM/DL (13.0-17.0) Hematocrit 25.1 % (39.0-51.0) Mean Corpuscular Volume 78.0 FL (80.0-100.0) Mean Corpuscular Hemoglobin 25.7 PG (27.0-34.0) Platelet Count 495 TH/MM3 (150-450) Neutrophils (%) (Auto) 76.1 % (16.0-70.0) Monocytes (%) (Auto) 10.4 % (0.0-8.0) Neutrophils # (Auto) 11.3 TH/MM3 (1.8-7.7) Monocytes # (Auto) 1.6 TH/MM3 (0-0.9) Albumin 1.6 GM/DL (3.4-5.0) Alkaline Phosphatase 319 U/L (45-117) Imaging Last Impressions Upper Extremity Ultrasound 01/19/18 0000 Signed Impressions: CONCLUSION: 1. No evidence of DVT. No significant changes. Lower Extremity Ultrasound 01/19/18 0000 Signed Impressions: CONCLUSION: 1. No DVT identified. Abdomen X-Ray 01/17/18 1758 Signed Impressions: CONCLUSION: Normal bowel gas pattern. Chest X-Ray 01/17/18 0000 Signed Impressions: CONCLUSION: New right lung infiltrate. Foot X-Ray 01/14/18 0000 Signed Impressions: CONCLUSION: Expected postoperative findings from fourth digit mid metatarsal amputation. Foot MRI 01/06/18 0000 Signed Impressions: Service Date/Time: Saturday, January 06, 2018 15:27 - CONCLUSION: Generalized edema with minimal enhancement in the operative bed, nonspecific. No evidence rales myelitis. Antonio Cole MD FACR Lower Extremity CT 01/04/18 0000 Signed Impressions: Service Date/Time: Thursday, January 04, 2018 17:37 - CONCLUSION: 1. Soft tissue ulcer in the lateral proximal forefoot with subcutaneous air extending to the base of the fourth digit. No definite osseous abnormality to suggest osteomyelitis. Consider MRI examination if there is continued clinical concern. Giorgi Rider MD PE at Discharge Not in distress Regular rate and rhythm Clear breath sounds Abdomen soft nontender Wound VAC in place right foot, output is nil. 1+ bilateral lower extremity edema Alert awake and oriented 3, no focal deficits. Hospital Course Patient is a 43-year-old male diabetic insulin requiring, hypertension who about 2 weeks prior to admission complaining complained of swelling of the right foot. Patient was found to have sepsis secondary to diabetic right foot infection with dry gangrene 4th digit with possible abscess on exam and possible underlying OM, patient was started on antibiotics, infectious disease was consulted. Podiatry was consulted, s/p right fourth toe amputation and I/D of the right foot, s/p Right foot fourth metatarsal head resection with wound VAC placement. Blood cultures remain negative. Superficial wound culture with MSSA and Enterococcus Faecalis, intraoperative culture grew MSSA. Infectious disease cleared the patient for discharge on ceftriaxone 2 g daily with Augmentin for about 6 weeks starting from surgical date. Vascular surgery was also consulted for peripheral vascular disease, patient cleared by vascular surgery, patient S/P angioplasty January [address] Cullen. Patient also went for [place] pop to PT bypass with cryo/R PT endarterectomy with patch angioplasty on . He will continue on aspirin and Plavix. Patient was cleared by vascular surgery for discharge. During his hospitalization, he had acute kidney injury superimposed on chronic kidney disease was resolved with volume resuscitation. He will be discharged home with home health care with wound VAC. Pt Condition on Discharge: Good Discharge Disposition: Disch w/ Home Health Serv Discharge Time: > 30 minutes Discharge Instructions DIET: Follow Instructions for: Diabetic Diet Activities you can perform: Regular-No Restrictions Follow up Referrals: PCP Follow-up PCP Follow-up @ DR. SORIANO PCP Follow-up Vascular Surgery - 3 Weeks @ Vascular Surgery with Moe Cullen MD DARRIUS- @ 9:30 F/U- 02/10/18 @ 2:30 Vascular Surgery @ DR. CULLEN Vascular Surgery @ [facility] - 1 Week @ [facility] New Medications: Amoxicillin-Clavulanate (Augmentin) 500-125 mg Tab 500 MG PO Q8H for Infection for 40 Days, TAB [address] (Aspirin EC) 81 Mg Tabdr 81 MG PO DAILY for antiplatelet for 30 Days, #30 TAB 0 Refills Ceftriaxone Inj (Ceftriaxone Inj) 2 Gram Inj 2 GM IM Q24H for Infection for 40 Days, VIAL 0 Refills Epinephrine Inj (Epinephrine Inj) 1 Mg/Ml (1 Ml) Inj 0.3 MG IV PUSH ONCE PRN for ALLERGIC REACTION, #1 VIAL Epinephrine Inj (Epinephrine Inj) 1 Mg/Ml (1 Ml) Inj 0.3 MG SQ ONCE PRN for ALLERGIC REACTION, #1 VIAL Give with any signs of respiratory distress. Hydrocortisone Inj (Solu-Cortef Inj) 250 Mg/2 Ml Inj 250 MG IV PUSH ONCE PRN for ALLERGIC REACTION, #1 VIAL 0 Refills Give over 30-60 seconds. Amlodipine (Norvasc) 5 Mg Tab 5 MG PO DAILY for hypertension for 30 Days, #30 TAB 0 Refills Atorvastatin (Atorvastatin) 40 Mg Tab 40 MG PO HS for pvd for 30 Days, TAB 0 Refills Clopidogrel (Plavix) 75 Mg Tab 75 MG PO DAILY for pvd for 30 Days, #30 TAB 0 Refills Gabapentin (Neurontin) 300 Mg Cap 300 MG PO TID for Pain Management for 30 Days, CAP 0 Refills Lisinopril (Lisinopril) 10 Mg Tab 10 MG PO DAILY for hypertension for 30 Days, #30 TAB 0 Refills Oxycodone (Oxycodone) 5 Mg Tab 5 MG PO Q6HR PRN for pain, #12 TAB 0 Refills Continued Medications: Insulin Human Isophan/Regular (Novolin 70/30) 100 Units/Ml Inj 70 UNITS SQ BID, ML Insulin Lisp Protam/Lisp Human (Humalog Mix 75/25) 100 Units/Ml Inj 30 UNITS SQ BID for 30 Days, ML Eren Mayorga MD January 21, 2018 16:58
[2018-01-21] MEDS: ENOXAPARIN SODIUM 40 MG/0.4 ML SYRINGE SQ SCH (18:41)
[2018-01-21] MEDS: ATORVASTATIN 40 MG TAB PO SCH (22:32)
[2018-01-22] MEDS: MORPHINE SULFATE 4 MG/ML INJ IV PUSH PRN (00:42)
[2018-01-22 04:30] VITALS: BP 159/86; PULSE 96; RESP 16; TEMP 98.8; O2SAT 97
[2018-01-22] MEDS: HYDROmorphone HCL 2 MG TAB PO PRN ×2 (05:54→15:01)
[2018-01-22] MEDS: AMPICILLIN-SULBACTAM INJ 3 GM in SODIUM CHLORIDE 0.9% INJ 100 ML IV SCH ×2 (05:55→11:46)
[2018-01-22 07:59] LABS: BICARBONATE 26.1 MEQ/L (21.0-32.0); CALCIUM 8.4 MG/DL (8.5-10.1); CREATININE 1.04 MG/DL (0.60-1.30)
[2018-01-22 08:00] VITALS: BP 160/83; PULSE 99; RESP 20; TEMP 98.5; O2SAT 96
[2018-01-22] MEDS: INSULIN ASPAR PROT 70/30 1,000 UNITS/10 ML VIAL SQ SCH (08:00)
[2018-01-22] MEDS: INSULIN ASPART SUPPLEMENTAL SCALE SQ SCH (08:00)
[2018-01-22] MEDS: POLYETHYLENE GLYCOL 17 GM PKG PO SCH (09:00)
[2018-01-22] MEDS: COLLAGENASE OINT 30 GM TUBE TOPICAL SCH (09:00)
[2018-01-22] MEDS: DOCUSATE SODIUM 50 MG/SENNA 8.6 MG TAB PO SCH (09:00)
[2018-01-22] MEDS: ASPIRIN 325 MG TAB PO SCH (09:29)
[2018-01-22] MEDS: GABAPENTIN 300 MG CAP PO SCH ×2 (09:29→15:00)
[2018-01-22] MEDS: PANTOPRAZOLE SOD 20 MG DELAYED RELEASE TAB PO SCH (09:29)
[2018-01-22] MEDS: CLOPIDOGREL 75 MG TAB PO SCH (09:30)
[2018-01-22] MEDS: amLODIPine BESYLATE 5 MG TAB PO SCH (09:30)
[2018-01-22] MEDS: LISINOPRIL 10 MG TAB PO SCH (09:30)
[2018-01-22] MEDS: SODIUM CHLORIDE 0.9% FLUSH 10 ML FLUSH IV FLUSH SCH (09:32)
[2018-01-22] MEDS ORDERED: GLUCTES12 (11:07)
[2018-01-22] MEDS ORDERED: LANCETS1 MI1 (11:07)
[2018-01-22] MEDS ORDERED: INSU1MIS15 (11:07)
[2018-01-22] MEDS ORDERED: NOVOLOGSS SQ (11:07)
--- NOTE | 2018-01-22 11:13 | HHI.PR ---
Subjective Remarks 42-year-old male who presented with diabetic foot ulcer on right fourth toe that turned out to have osteomyelitis. He required a fourth toe amputation, and IV antibiotics with wound VAC. Discharge was placed yesterday but patient remains here to have his wound VAC changed in order to give him more time since home health cannot see him until Thursday of next week. He is comfortable in bed and eager to go home. Objective Vitals Vital Signs Date Time Temp Pulse Resp B/P (MAP) Pulse Ox O2 Delivery O2 Flow Rate FiO2 01/22/18 08:00 98.5 99 20 160/83 (108) 96 01/22/18 08:00 Room Air 01/22/18 04:30 98.8 96 16 159/86 (110) 97 01/22/18 00:53 18 01/21/18 23:48 99.7 97 16 152/68 (96) 97 01/21/18 21:00 98 Room Air 21 01/21/18 19:55 99.5 101 16 161/80 (107) 98 01/21/18 16:05 98.6 93 18 162/80 (107) 98 01/21/18 12:05 98.5 95 18 172/83 (112) 98 I/O 01/21/18 01/21/18 01/21/18 01/22/18 01/22/18 01/22/18 07:00 15:00 23:00 07:00 15:00 23:00 Intake Total 1200 ml 100 ml 580 ml 500 ml Output Total 1225 ml 1300 ml 1200 ml Balance -25 ml 100 ml -720 ml -700 ml Intake Oral 1000 ml 480 ml 500 ml IV Total 200 ml 100 ml 100 ml Output Urine Total 1225 ml 1300 ml 1200 ml # Bowel Movements 0 1 0 Result Diagram: 01/18/18 1720 01/22/18 0600 Objective Remarks GENERAL: Well-nourished, well-developed patient. SKIN: Warm and dry. HEAD: Normocephalic. EYES: No scleral icterus. No injection or drainage. NECK: Supple, trachea midline. No JVD or lymphadenopathy. CARDIOVASCULAR: Regular rate and rhythm without murmurs, gallops, or rubs. RESPIRATORY: Breath sounds equal bilaterally. No accessory muscle use. GASTROINTESTINAL: Abdomen soft, non-tender, nondistended. EXTREMITIES: No cyanosis, or edema. Right fourth metatarsal and anterior foot has wound VAC placed and Toni wrap overlying for support. NEUROLOGICAL: Awake, alert, and oriented x 3. Non-focal. Procedures ANGIOGRAM 01-06 Moe Cullen MD DATE OF OPERATION: PREOPERATIVE DIAGNOSIS: Right lower extremity tissue loss, peripheral vascular disease. POSTOPERATIVE DIAGNOSIS: Right lower extremity tissue loss, peripheral vascular disease. PROCEDURE PERFORMED: 1. Aortogram with right lower extremity angiogram. 2. Right SFA and popliteal artery angioplasty with 5 mm balloon. 3. Left common femoral artery Angio-Seal. OPERATING SURGEON: Moe Cullen MD ANESTHESIA: Local with sedation. INDICATIONS: Mr. Garibay is a 42-year-old gentleman with right lower extremity tissue loss. He is taken to the operating room for angiographic evaluation and potential treatment. There was no prior catheter-based imaging available for my review. DESCRIPTION OF PROCEDURE: Informed consent was obtained from the patient. He was taken to the operating room and placed supine on the operating table. An appropriate timeout was taken to ensure the patient's identity, the operative site and planned procedure. The administration of antibiotics was not necessary as this is a clean procedure without the planned implantation of any foreign object. Everyone in the room agreed with timeout and we proceeded. His bilateral groins prepped and draped. Left groin was anesthetized with 1% lidocaine. A 21-gauge micropuncture needle was used to access the left common femoral artery, was exchanged using Seldinger technique through micropuncture sheath, which a 0.035 Glidewire was introduced. Micropuncture sheath was exchanged for a 4-[place] sheath. A VCF catheter was placed over the wire and through the sheath and aortogram, pelvic arteriogram was obtained. The Glidewire was reintroduced and navigated down to the right common femoral artery and the VCF catheter was advanced over this and a right lower extremity arteriogram was obtained. The patient was systemically heparinized with 5000 units of IV Heparin. A 0.035 Ceballos wire was introduced down to the mid SFA and the VCF catheter and 4-[place] sheath were removed and a 6-[place] 55 cm Dimitry sheath was introduced. A CXI catheter was placed over the wire into the sheath and the wire was exchanged for a NEURORADIOLOGIST wire. Using the NEURORADIOLOGIST wire and CXI catheter we were able to navigate through the SFA lesion and the popliteal lesion. Both of these were angioplastied with a 5 x 200 and 5 x 80 balloon, respectively. The completion angiogram showed excellent result on recoil extravasation. We then did advance the catheter down to the popliteal artery. An angiogram was obtained. The wire, catheter and sheath were removed and the groin was closed with Angio-Seal. There were no complications. I was present and scrubbed for the entire procedure. INTERPRETATION OF IMAGES: The patient has a patent terminal aorta, common iliac arteries, hypogastric arteries and external iliac arteries, none of which have any hemodynamically significant stenoses. The right common femoral artery and profunda are patent without any hemodynamically significant stenosis. The proximal SFA is patent. The mid SFA has high-grade diffuse stenosis that was successfully angioplastied and the popliteal artery had a similar high-grade diffuse stenosis that was successfully angioplastied. The below knee popliteal artery occludes and there was no posterior tibial artery or peroneal artery proximally. The perigeniculate collaterals give rise to the posterior tibial artery in the mid to distal calf. , 09:14 AM Masoud Gates DPM DATE OF OPERATION: 01/05/2018 PREOPERATIVE DIAGNOSIS: Right fourth digit gangrene, abscess, diabetic foot infection. POSTOPERATIVE DIAGNOSIS: Right fourth digit gangrene, abscess, diabetic foot infection. PROCEDURE PERFORMED: Right fourth digit amputation, incision and drainage deep, right foot. INTRAOPERATIVE FINDINGS: Minimal bleeding. Foul odor at level of amputation site. S SPECIMENS: Fourth digit for pathology. Deep culture at amputation site for micro. ESTIMATED BLOOD LOSS: Less than 30 mL ANESTHESIA: General. DRAINS: None. TOURNIQUET: None. DISPOSITION: Returned to floor for vascular intervention and monitor of foot. May need wound VAC versus repetitive debridements versus amputation at a later date. JUSTIFICATION FOR PROCEDURE: A 42-year-old diabetic male with a history of smoking, was admitted. CT showed gas within the tissue at the base of the fourth digit. The patient was planned for vascular intervention; however, we wished to eradicate infection or at least debulk the infection first. The patient was educated on risks and benefits, need for more surgery, loss of limb. No guarantees were given or implied regarding the outcome. PROCEDURE IN DETAIL: Under mild sedation, the patient was brought into the operating room, placed on the operating table in supine position. Following the induction of general anesthesia, the patient's right lower extremity was scrubbed, prepped and draped in the usual aseptic fashion. The foot was elevated and examined. There was noted to be a necrotic, delayed capillary fill time, a putrid-smelling right fourth digit. A fishmouth mouth type incision was made disarticulating the digit down to the level of the joint. There were gas bubbles within the tissue. There was purulent drainage. There was a full-thickness eschar of the dorsum of the foot that had an odor. This was sharply unroofed down to the tendon sheath with exposed fourth metatarsal. There was no obvious signs of tracking deep within the plantar aspect of the foot or along the dorsal aspect of the foot. This was flushed with copious amounts of normal saline. Minimal Bovie and ligation was needed throughout the case. The wound was packed open, soft bandage applied. The patient was transferred from OR to PACU with all vital signs stable. The patient will be monitored after a vascular attempt. Overall prognosis is poor given the history of smoking and diabetes. I will see the patient within 1-2 days. Masoud Gates, CHERISE - R AK pop to PT bypass with cryo/ R PT endarterectomy with patch angioplasty. - Right foot fourth metatarsal head resection with wound VAC placement. -PICC line placement. A/P Problem List: (1) Leukocytosis ICD Code: D72.829 - Elevated white blood cell count, unspecified Status: Acute (2) Peripheral vascular disease ICD Code: I73.9 - Peripheral vascular disease, unspecified Status: Acute (3) Diabetic foot infection ICD Code: E11.628 - Type 2 diabetes mellitus with other skin complications; L08.9 - Local infection of the skin and subcutaneous tissue, unspecified Status: Acute (4) Renal insufficiency ICD Code: N28.9 - Disorder of kidney and ureter, unspecified (5) Hypertension ICD Code: I10 - Essential (primary) hypertension (6) DVT (deep venous thrombosis) ICD Code: I82.409 - Acute embolism and thrombosis of unspecified deep veins of unspecified lower extremity Assessment and Plan Diabetic foot ulcer status post amputation of fourth toe for osteomyelitis. He has follow-up with podiatry and vascular surgery He has follow-up arranged with primary care to manage his diabetes We had an extended talk about the importance of dietary change Discharge planning Patient already has discharge orders in place He will be going home after his wound VAC is changed today Problem Qualifiers (1) Leukocytosis: Qualified Codes: D72.829 - Elevated white blood cell count, unspecified Randall Randall MD Jan 22, 2018 11:13
[2018-01-22 12:00] VITALS: BP 174/83; PULSE 95; RESP 20; TEMP 98.9; O2SAT 96
--- NOTE | 2018-01-22 13:27 | PD.WCN.NOT ---
Neg Pressure Wound Therapy Wound Location Wound Location: Right lower extremity [place] 4th digit Wound Description Length: 4.8cm Width: 4.0cm Depth: 3.0cm Wound bed appearance: 60% Beefy red granular tissue 30% moist exposed tendon 10% black cauterized tissue Settings Suction: 125 mmHg, Continuous Intensity: Low Other Information: Bridged, Windowpaned, Mushroomed Foam type: Black, White Number of pieces: 2 Additonal Information Wound VAC dressing was changed today on R dorsal foot around 1130. Wound VAC dressing in place was removed including one piece of black granufoam and one piece of white granufoam, a total of two pieces of granufoam were removed from wound bed, to reveal wound to R dorsal foot. Wound was cleansed with normal saline and patted dry. Applied skin barrier film (skin prep) to periwound. Eakins seal was then applied to help seal wound VAC dressing. Window paned wound with wound VAC drape.Applied oil emulsion gauze (adaptic) to wound covering exposed tendon. Applied one piece of white granufoam to wound bed first to cover tendon and then Applied one piece of black granufoam to fill in wound bed and secured with VAC drape. VAC drape was bridged to lateral dorsal foot, with black granufoam bridged over top from wound bed.Wound VAC was bridged to lateral dorsal foot due to maceration on the medial aspect.Sensi Trac pad was applied to lateral dorsal foot over bridged granufoam with attached mushroom cap.All exposed granufoam was covered with VAC drape to seal. Wound VAC is attached to home wound VAC machine and is suctioning without leaks. Jerica Ferreira [facility] Jan 22, 2018 13:27
[2018-01-22] MEDS ORDERED: NOVO7030P2 SQ (13:31)
== END 2018-01-22 15:55 | disposition home health service (06) | DRG 854 ==
LOC: NEPE 11:25 → NEDA 14:19 → N04A 16:23 → N04B 01-11 08:33 → N04A 01-11 08:37
PROVIDERS: ADMIT Family Medicine; ATTEND Family Medicine
PROC: 0Y6V0Z0 Detachment at Right 4th Toe, Complete, Open Approach (ICD-10-PCS; principal; 2018-01-05 18:35)
PROC: 047K3ZZ Dilation of Right Femoral Artery, Percutaneous Approach (ICD-10-PCS; 2018-01-06)
PROC: 047M3ZZ Dilation of Right Popliteal Artery, Percutaneous Approach (ICD-10-PCS; 2018-01-06)
PROC: 04CR0ZZ Extirpation of Matter from Right Posterior Tibial Artery, Open Approach (ICD-10-PCS; 2018-01-06)
PROC: B41D1ZZ Fluoroscopy of Aorta and Bilateral Lower Extremity Arteries using Low Osmolar Contrast (ICD-10-PCS; 2018-01-06)
PROC: 04UR0KZ Supplement Right Posterior Tibial Artery with Nonautologous Tissue Substitute, Open Approach (ICD-10-PCS; 2018-01-12)
PROC: 041 Lower Arteries, Bypass (ICD-10-PCS; 2018-01-12)
PROC: 0QBN0ZZ Excision of Right Metatarsal, Open Approach (ICD-10-PCS; 2018-01-14)
PROC: 30233N1 Transfusion of Nonautologous Red Blood Cells into Peripheral Vein, Percutaneous Approach (ICD-10-PCS; 2018-01-15)
DX: A41.9 Sepsis, unspecified organism (principal); N17.9 Acute kidney failure, unspecified; E11.52 Type 2 diabetes mellitus with diabetic peripheral angiopathy with gangrene; I82.621 Acute embolism and thrombosis of deep veins of right upper extremity; I12.9 Hypertensive chronic kidney disease with stage 1 through stage 4 chronic kidney disease, or unspecified chronic kidney disease; E11.69 Type 2 diabetes mellitus with other specified complication; F17.210 Nicotine dependence, cigarettes, uncomplicated; D50.9 Iron deficiency anemia, unspecified; M86.9 Osteomyelitis, unspecified; E11.21 Type 2 diabetes mellitus with diabetic nephropathy; E11.40 Type 2 diabetes mellitus with diabetic neuropathy, unspecified; E11.22 Type 2 diabetes mellitus with diabetic chronic kidney disease; E11.621 Type 2 diabetes mellitus with foot ulcer; E11.628 Type 2 diabetes mellitus with other skin complications; L08.9 Local infection of the skin and subcutaneous tissue, unspecified; N18.9 Chronic kidney disease, unspecified; L97.519 Non-pressure chronic ulcer of other part of right foot with unspecified severity; Z83.3 Family history of diabetes mellitus; Z82.49 Family history of ischemic heart disease and other diseases of the circulatory system; Z79.899 Other long term (current) drug therapy; M10.9 Gout, unspecified; Z79.4 Long term (current) use of insulin; Z91.19 Patient's noncompliance with other medical treatment and regimen; E78.5 Hyperlipidemia, unspecified; K59.00 Constipation, unspecified; E11.649 Type 2 diabetes mellitus with hypoglycemia without coma; R91.8 Other nonspecific abnormal finding of lung field
CPT/HCPCS: 36200; 36247; 36430; 36569; 36600; 37225; 71045; 71046; 73630; 73700; 73720; 74018; 75625; 75710; 76937; 80048; 80053; 80061; 80202; 82272; 82565; 82728; 82805; 82948; 83036; 83540; 83550; 83605; 83735; 84100; 84439; 84443; 85025; 85610; 85652; 85730; 86140; 86403; 86850; 86900; 86901; 86920; 86922; 87015; 87040; 87070; 87077; 87102; 87116; 87147; 87186; 87205; 87206; 88304; 88305; 88307; 88311; 93005; 93306; 93922; 93970; 93971; 93998; 94150; 94664; 96365; 96375; A9579; C1725; C1768; C1769; C1893; G0269; J0131; J0295; J0330; J0692; J1100; J1642; J1644; J1650; J1756; J1815; J1940; J2250; J2270; J2370; J2405; J2543; J2720; J3010; J3370; J7030; J7040; J7050; J7120; L3260; P9016; Q9967

== ENCOUNTER 2018-04-13 09:24 | Inpatient (IN) ==
[2018-04-13] MEDS ORDERED: Piperacil/Tazo 3.375 GM Premix 50 ML IV.SIG ONE (12:42)
[2018-04-13] MEDS ORDERED: Vancomycin Inj 1,000 MG in Sodium Chlor 0.9% Inj 250 ML IV.SIG ONE (12:42)
[2018-04-13] MEDS ORDERED: Morphine Inj 4 MG/ML Vial IV.PUSH ONE (12:42)
[2018-04-13] MEDS ORDERED: Sod Chloride 0.9% Inj 1,000 ML IV.SIG ONE (12:42)
--- NOTE | 2018-04-13 12:51 | ED ---
HPI General Chief complaint: Skin/Abscess/Foreign Body Stated complaint: Toe complaint right foot Time Seen by Provider: 04/13/18 12:31 Source: patient, family, RN notes reviewed and old records reviewed Mode of arrival: wheelchair Limitations: no limitations History of Present Illness HPI narrative: 43-year-old male past medical history of diabetes, diabetic neuropathy, hypertension presents to the emergency department for worsening infection to the right foot. Patient is currently being treated for diabetic foot ulcer. He was here in December 2017 underwent amputation of the right fourth digit. He also had bypass by Dr. Cullen to the right lower extremity. He has been following with wound care. He started to notice worsening infection on . He was placed on ampicillin and Levaquin by wound care physician yesterday. Today, his significant other at bedside noticed that the right fifth toe was becoming black and there was more foul-smelling drainage. They called Dr. Morales, wound care physician, who instructed him to come to the emergency department. Patient reports 8/10 pain. No other symptoms or complaints. Moderate severity. Location: right and lower extremity Radiation: non-radiation Severity: moderate Severity scale (1-10): 8 Quality: aching Pain Consistency: constant Relieving factors: none Exacerbating factors: none Associated symptoms: denies other symptoms Treatments prior to arrival: other (antibiotics started yesterday) Related Data Home Medications Medication Instructions Recorded Confirmed amlodipine 5 mg PO DAILY 02/21/18 04/13/18 amoxicillin 500 mg PO Q8HR 02/21/18 04/13/18 aspirin [Aspirin Low Dose] 81 mg PO DAILY 02/21/18 04/13/18 atorvastatin 40 mg PO DAILY 02/21/18 04/13/18 clopidogrel [Plavix] 75 mg PO DAILY 02/21/18 04/13/18 gabapentin [Neurontin] 300 mg PO TID 02/21/18 04/13/18 insulin regular human 40 unit SUB-Q BID 02/21/18 04/13/18 lisinopril 10 mg PO DAILY 02/21/18 04/13/18 oxycodone 5 mg PO Q4-6H 02/21/18 04/13/18 levofloxacin [Levaquin] 750 mg PO DAILY 04/13/18 04/13/18 Allergies Allergy/AdvReac Type Severity Reaction Status Date / Time No Known Allergies Allergy Verified 04/13/18 12:35 Review of Systems ROS: all other systems reviewed are negative [facility] Medical History Medical History HLD (hyperlipidemia) (Acute) Amputated toe (Acute) Diabetes (Acute) Hypertension (Acute) Surgical History Surgical History History of arthroplasty of left ankle (Acute) Hx of CABG (Acute) Family History Family History Mother DM type 2 (diabetes mellitus, type 2) Father DM type 2 (diabetes mellitus, type 2) Social History Social History Substance History: No History of Abuse Second Hand Smoke Exposure: Yes Smoking Status: Current every day smoker Tobacco Type: Cigarettes How Often Do You Have a Drink Containing Alcohol: Never Recent Travel in [facility] within the Last 8 Weeks: No Recent Out of Country Travel within the Last 8 Weeks: No Immunization History Tetanus Immunization: >5 Years Hx Influenza Vaccine This Season: No Exam Narrative Exam Narrative: GENERAL: Well-nourished, well-developed male patient, afebrile SKIN: Focused skin assessment warm/dry. Patient has ulcer to the right foot to the dorsal foot to area proximal to 4th and 5th digits. The 5th does is black consistent with dry gangrene. There is foul smelling odor from wound. Patient is s/p amputation to the 4th digit HEAD: Normocephalic. Atraumatic EYES: No scleral icterus. No injection or drainage. NECK: Supple, trachea midline. No JVD or lymphadenopathy. CARDIOVASCULAR: Regular rate and rhythm without murmurs, gallops, or rubs. Right pedal pulse found with doppler RESPIRATORY: Breath sounds equal bilaterally. No accessory muscle use. Lung sounds are clear to auscultation GASTROINTESTINAL: Abdomen soft, non-tender, nondistended. MUSCULOSKELETAL: No cyanosis. 2+ edema to right lower extremity BACK: Nontender without obvious deformity. No CVA tenderness. Course Initial Documented Vital Signs Temperature 98.7 F 04/13/18 10:00 Pulse Rate 99 H 04/13/18 10:00 Respiratory Rate 17 04/13/18 10:00 Blood Pressure 176/88 H 04/13/18 10:00 Pulse Oximetry 100 04/13/18 10:00 Last Documented Vital Signs Temperature 98.1 F 04/13/18 15:00 Pulse Rate 97 H 04/13/18 15:00 Respiratory Rate 18 04/13/18 15:00 Blood Pressure 177/88 H 04/13/18 15:00 Pulse Oximetry 98 04/13/18 15:00 Medical Decision Making MARINO Attestation MARINO supervised visit: Yes Attestation: I, Dr. Osullivan, have reviewed the advance practice practitioner's documentation and am in agreement, met with the patient face to face, made the diagnosis, and the medical decision making was done by me. *My assessment and Findings: Patient seen and evaluated with PA, please see PA notes for further details. He has worsening wound and breakdown of chronic toe ulcer, dusky looking fifth toe, left concerning for worsening diabetic ulcer and toe necrosis. Patient is initiated on IV antibiotics after cultures are drawn. He will need evaluation by podiatry for further treatment. Case is discussed with hospitalist service for admission. MDM Narrative Medical decision making narrative: 43 year old male presents to the emergency department for evaluation of worsening infection to right foot. I reviewed wound culture from 04/08/18. IV access is established. CBC, ESR, CMP, CRP, PTT , PT/INR, x-ray of the right foot are ordered and pending. Patient is given NS 1 L IV bolus, Vancomycin 1 gm IV, Zosyn 3.375 gm IV. CBC shows leukocytosis of 11.9, anemia with a hgb of 9.6/27.9. ESR is 102. CMP shows BUN 21/creatinine 1.31, hyperglycemia 210. CRP is 10.70. PTT is 27.2. PT/INR is 10.0/1.0. X-ray of the right foot shows no acute abnormality. Hospitalist is paged for admission. Dr. Gutierrez accepted admission. Medical Screen Exam Complete: Yes Emergency Medical Condition: Yes Differential Diagnosis Differential Diagnosis: diabetic foot ulcer vs. dry gangrene vs. ostemyelitis vs. sepsis Medical Records Medical records reviewed: Yes I reviewed the patient's medical records. Patient was admitted on 01/04/18 for diabetic foot ulcer, underwent 4th toe amputation by Dr. Gates also underwent AK pop to PT bypass with cryo/R PT endarterectomy with patch angioplasty on 01/[address] Cullen. Lab Data Lab results reviewed: Yes I reviewed the patient's lab results. Result diagrams: 04/13/18 12:51 04/13/18 12:51 Lab Results 04/13/18 04/13/18 04/13/18 Range/Units 12:51 12:51 12:51 WBC 11.9 H (4.0-11.0) th/mm3 RBC 3.69 L (4.50-5.90) mil/mm3 Hgb 9.6 L (13.0-17.0) gm/dL Hct 27.9 L (39.0-51.0) % MCV 75.8 L (80.0-100.0) fL MCH 26.0 L (27.0-34.0) pg MCHC 34.3 (32.0-36.0) % RDW 17.7 H (11.6-17.2) % Plt Count 356 (150-450) th/mm3 MPV 7.7 (7.0-11.0) fL Prelim Diff (Auto) Slide review pending Neut % (Auto) 72.8 H (16.0-70.0) % Lymph % (Auto) 17.0 (9.0-44.0) % Bertie % (Auto) 8.7 H (0.0-8.0) % Eos % (Auto) 1.2 (0.0-4.0) % Baso % (Auto) 0.3 (0.0-2.0) % Neut # (Auto) 8.6 H (1.8-7.7) th/mm3 Lymph # (Auto) 2.0 (1.0-4.8) th/mm3 Bertie # (Auto) 1.0 H (0.0-0.9) th/mm3 Eos # (Auto) 0.1 (0.0-0.4) th/mm3 Baso # (Auto) 0.0 (0.0-0.2) th/mm3 WBC Differential . Diff Scan Auto diff confirmed Differential Comment . ESR (0-15) mm/hr PT 10.0 (9.8-11.6) sec INR 1.0 Ratio APTT 27.2 (24.3-30.1) sec Sodium 141 (136-145) meq/L Potassium 4.6 (3.5-5.1) meq/L Chloride 108 H (98-107) meq/L Carbon Dioxide 28.1 (21.0-32.0) meq/L Anion Gap 5 (5-15) meq/L BUN 21 H (7-18) mg/dL Creatinine 1.31 H (0.60-1.30) mg/dL Estimated GFR 73 L (>89) mL/min Random Glucose 210 H (74-106) mg/dL Lactic Acid (0.4-2.0) mmol/L Calcium 9.0 (8.5-10.1) mg/dL Total Bilirubin 0.2 (0.2-1.0) mg/dL AST 16 (15-37) U/L ALT 20 (12-78) U/L Alkaline Phosphatase 134 H (45-117) U/L C-Reactive Protein 10.70 H (0.00-0.30) mg/dL Total Protein 7.9 (6.4-8.2) g/dL Albumin 2.8 L (3.4-5.0) g/dL 04/13/18 04/13/18 Range/Units 12:51 13:10 WBC (4.0-11.0) th/mm3 RBC (4.50-5.90) mil/mm3 Hgb (13.0-17.0) gm/dL Hct (39.0-51.0) % MCV (80.0-100.0) fL MCH (27.0-34.0) pg MCHC (32.0-36.0) % RDW (11.6-17.2) % Plt Count (150-450) th/mm3 MPV (7.0-11.0) fL Prelim Diff (Auto) Neut % (Auto) (16.0-70.0) % Lymph % (Auto) (9.0-44.0) % Bertie % (Auto) (0.0-8.0) % Eos % (Auto) (0.0-4.0) % Baso % (Auto) (0.0-2.0) % Neut # (Auto) (1.8-7.7) th/mm3 Lymph # (Auto) (1.0-4.8) th/mm3 Bertie # (Auto) (0.0-0.9) th/mm3 Eos # (Auto) (0.0-0.4) th/mm3 Baso # (Auto) (0.0-0.2) th/mm3 WBC Differential Diff Scan Differential Comment ESR 102 H (0-15) mm/hr PT (9.8-11.6) sec INR Ratio APTT (24.3-30.1) sec Sodium (136-145) meq/L Potassium (3.5-5.1) meq/L Chloride (98-107) meq/L Carbon Dioxide (21.0-32.0) meq/L Anion Gap (5-15) meq/L BUN (7-18) mg/dL Creatinine (0.60-1.30) mg/dL Estimated GFR (>89) mL/min Random Glucose (74-106) mg/dL Lactic Acid 0.9 (0.4-2.0) mmol/L Calcium (8.5-10.1) mg/dL Total Bilirubin (0.2-1.0) mg/dL AST (15-37) U/L ALT (12-78) U/L Alkaline Phosphatase (45-117) U/L C-Reactive Protein (0.00-0.30) mg/dL Total Protein (6.4-8.2) g/dL Albumin (3.4-5.0) g/dL Imaging Data Attestation: I personally reviewed and interpreted this imaging study as follows : Radiologist's impression: Foot X-Ray 04/13/18 12:42 CONCLUSION: Stable examination with postsurgical changes not significantly changed. Discharge Plan Discharge Disposition Patient Disposition: 30 Still Patient Discharge Details Diagnosis: Diabetic foot infection Physicians Team ED Provider: Moshe Osullivan ED Midlevel Provider: Ivelisse Nielson Primary Care Provider: UNKNOWN, Attending Provider: Jacquelin Gutierrez Status ED Status: Admitted Patient
--- NOTE | 2018-04-13 13:16 | XR ---
EXAM DATE: 04/13/2018 1:04 PM EDT AGE/SEX: 43 years / Male INDICATIONS: Right foot pain post surgery. CLINICAL DATA: This is the patient's initial encounter. Patient reports that signs and symptoms have been present for 2 weeks and indicates a pain score of 10/10. MEDICAL/SURGICAL HISTORY: Diabetes. . Amputation 4th digit, right foot. [place] [facility] [place]. . FINDINGS: Again noted is amputation of the fourth digit. There is no evidence for acute fracture. No other changes have occurred. CONCLUSION: Stable examination with postsurgical changes not significantly changed. Electronically signed by: Cat Maki MD 04/13/2018 1:15 PM EDT
[2018-04-13 13:52] LABS: Hematocrit 27.9 % (39.0-51.0); Hemoglobin 9.6 gm/dL (13.0-17.0); Mean Corpuscular HGB Conc 34.3 % (32.0-36.0); Mean Corpuscular Volume 75.8 fL (80.0-100.0); Mean Platelet Volume 7.7 fL (7.0-11.0); Platelet Count 356 th/mm3 (150-450); Red Blood Count 3.69 mil/mm3 (4.50-5.90); Red Cell Distribution Width 17.7 % (11.6-17.2); White Blood Count 11.9 th/mm3 (4.0-11.0)
[2018-04-13 13:53] LABS: Baso % (Auto) 0.3 % (0.0-2.0); Eos # (Auto) 0.1 th/mm3 (0.0-0.4); Eos % (Auto) 1.2 % (0.0-4.0); Mono % (Auto) 8.7 % (0.0-8.0); Neut # (Auto) 8.6 th/mm3 (1.8-7.7); Neut % (Auto) 72.8 % (16.0-70.0)
[2018-04-13 14:03] LABS: Activated Partial Thrombo Time 27.2 sec (24.3-30.1)
[2018-04-13 14:12] LABS: Alanine Aminotransferase 20 U/L (12-78); Albumin 2.8 g/dL (3.4-5.0); Anion Gap 5 meq/L (5-15); Aspartate Aminotransferase 16 U/L (15-37); Blood Urea Nitrogen 21 mg/dL (7-18); Carbon Dioxide 28.1 meq/L (21.0-32.0); Chloride 108 meq/L (98-107); Glomerular Filtration Rate 73 mL/min (>89); Glucose,Random 210 mg/dL (74-106); Potassium 4.6 meq/L (3.5-5.1); Sodium 141 meq/L (136-145)
[2018-04-13 14:14] LABS: Alkaline Phosphatase 134 U/L (45-117); Total Protein 7.9 g/dL (6.4-8.2)
[2018-04-13] MEDS ORDERED: Naloxone Inj 0.4 MG/ML Vial IV.PUSH PRN (16:07)
[2018-04-13] MEDS ORDERED: Dextrose 50% in Water 50 ML Vial IV.PUSH PRN (16:11)
--- NOTE | 2018-04-13 16:43 | P.HP ---
History of Present Illness Service: [facility] Primary Care Physician: UNKNOWN Chief Complaint: "Foot infection" History of Present Illness: Patient is a 43 year old AA male with past medical history of diabetes, diabetic neuropathy, HTN, HLD, status post right lower extremity bypass graft Dr. Cullen, right fourth toe amputation by Dr. Gates who came into the hospital for evaluation of worsening right foot diabetic infection. Patient states he was doing okay and has been seeing wound care for his diabetic foot ulcer. He started to notice worsening infection on . He was placed on ampicillin and Levaquin by wound care physician yesterday. Patient states right foot with increasing pain with drainage, noticed that the 5th toe is getting black. They called Dr. Morales, wound care physician, who instructed him to come to the emergency department . States that the bypass surgery site has been healing about 99, and not draining. Foot xray showed Stable examination with postsurgical changes not significantly changed. Right foot pain 7/10, sharp, intermittent, burning at times, reports neuropathy is also present, aggravated by movement, states previous pain medication "helped a little bit." Denies SOB/ dyspnea. Denies chest pain, palpitations, headaches, dizziness. Denies fevers, chills, n/v/d. Denies dysuria. WBC 11.9, ESR 102, C-reactive protein 10.70, creatinine 1.31 Inpatient Certification: I certify that the inpatient services were ordered in accordance with Medicare regulations governing the order. This includes certification that hospital inpatient services are reasonable and necessary and in the case of services not specified as inpatient-only under 42 CFR 419.22(n), that they are appropriately provided as inpatient services in accordance to with the 2-midnight benchmark under 43 CFR 412.3(e) Estimated Total Length of Stay (Days): 2 Plans for Post Hospital Care: Not yet determined Review of Systems All other systems reviewed negative except as stated in HPI [facility] - History History Provided By: Patient - Medical History Medical History: Medical History (Last Updated 04/13/18 @ 17:02 by MARY May) HLD (hyperlipidemia) Amputated toe Diabetes Hypertension - Surgical History Surgical History: Surgical History (Last Updated 04/13/18 @ 17:03 by MARY May) History of arthroplasty of left ankle Hx of CABG - Family History Family History: Family History (Last Updated 04/13/18 @ 17:04 by MARY May) Mother DM type 2 (diabetes mellitus, type 2) Father DM type 2 (diabetes mellitus, type 2) - Tobacco History Second Hand Smoke Exposure: Yes Tobacco Use In Past 30 Days: Yes Smoking Status: Current every day smoker Tobacco Type: Cigarettes Packs Per Day: 0.5 - Alcohol History How Often Do You Have a Drink Containing Alcohol: Never - Substance Use History Substance History: No History of Abuse - Travel History Recent Travel in the [place] Within the Last 8 Weeks: No Recent Travel Out of the Country Within the Last 8 Weeks: No - Immunization History Tetanus Immunization: >5 Years Hx Influenza Vaccine This Season: No Medications and Allergies Active Medications: Active Medications Hydrocodone Bitart/Acetaminophen ([place] 5/325) 1 tab PO Q4H PRN PRN Reason: PAIN SCALE 3 TO 5 Hydrocodone Bitart/Acetaminophen ([place] 10/325) 1 tab PO Q4H PRN PRN Reason: PAIN SCALE 6 TO 10 Amlodipine Besylate (Norvasc) 5 mg PO DAILY [facility] Aspirin (Ecotrin) 81 mg PO DAILY [facility] Atorvastatin Calcium (Lipitor) 40 mg PO DAILY [facility] Dextrose (D50w Vial) 50 ml IV.PUSH UNSCH PRN PRN Reason: PER HYPOGLYCEMIA PROTOCOL Glucagon (Glucagon Inj) 1 mg OTHER PRN PRN PRN Reason: for Hypoglycemia Protocol Insulin Aspart (Novolog Insulin Correctional Sugar Inj) 0 unit SQ 08,12,17,21 MER; Protocol Morphine Sulfate (Morphine Inj) 4 mg IV.PUSH Q3H PRN PRN Reason: BREAKTHROUGH PAIN Naloxone HCl (Narcan Inj) 0.4 mg IV.PUSH UNSCH PRN PRN Reason: SEE LABEL COMMENTS Ondansetron HCl (Zofran Inj) 4 mg IV.PUSH Q6H PRN PRN Reason: Nausea, vomiting Allergies Allergy/AdvReac Type Severity Reaction Status Date / Time No Known Allergies Allergy Verified 04/13/18 12:35 Home Medications Medication Instructions Recorded Confirmed Type amlodipine 5 mg PO DAILY 02/21/18 04/13/18 History amoxicillin 500 mg PO Q8HR 02/21/18 04/13/18 History aspirin [Aspirin Low Dose] 81 mg PO DAILY 02/21/18 04/13/18 History atorvastatin 40 mg PO DAILY 02/21/18 04/13/18 History clopidogrel [Plavix] 75 mg PO DAILY 02/21/18 04/13/18 History gabapentin [Neurontin] 300 mg PO TID 02/21/18 04/13/18 History insulin regular human 40 unit SUB-Q BID 02/21/18 04/13/18 History lisinopril 10 mg PO DAILY 02/21/18 04/13/18 History oxycodone 5 mg PO Q4-6H 02/21/18 04/13/18 History levofloxacin [Levaquin] 750 mg PO DAILY 04/13/18 04/13/18 History Exam Vital signs: Vital Signs 04/13/18 10:00 04/13/18 12:42 04/13/18 13:03 Temperature 98.7 F 98.1 F Pulse Rate 99 H 96 H 97 H Respiratory Rate 17 18 Blood Pressure 176/88 H 197/86 H Pulse Oximetry 100 97 100 04/13/18 13:38 04/13/18 15:00 Temperature 98.1 F Pulse Rate 97 H Respiratory Rate 16 18 Blood Pressure 177/88 H Pulse Oximetry 98 Intake & Output 04/12/18 04/13/18 04/13/18 18:59 06:59 18:59 Intake Total 1300 / 1300 Balance 1300 / 1300 Weight 111.584 kg Intake: IV 1300 / 1300 Zosyn 3.375 GM Premix 50 ML @ 50 / 50 100 mls/hr IV.SIG ONCE ONE Rx#: [id number] NS Inj 1,000 ML @ Wide Open IV. 1000 / 1000 SIG BOLUS ONE Rx#:[id number] Vancomycin Inj 1,000 MG In NS 250 / 250 Inj 250 ML @ 250 mls/hr IV.SIG ONCE ONE Rx#:[id number] Narrative: GENERAL: This is a well-nourished, well-developed patient, in no apparent distress. SKIN: Warm and dry. HEENT: Normocephalic. Pupils equal round and reactive. Nose without bleeding. Airway patent. NECK: Trachea midline. Supple. CARDIOVASCULAR: Regular rate and rhythm without murmurs, gallops, or rubs. RESPIRATORY: Diminished bases. No wheezes, rales, or rhonchi. GASTROINTESTINAL: Abdomen soft, non-tender, nondistended. Bowel Sounds normoactive x4. MUSCULOSKELETAL: Extremities without clubbing, cyanosis. Right leg bypass incision dsg CDI. Right 5th toe, darkened, purulent drain small amount. NEUROLOGICAL: Awake and alert. Oriented to time, place, person. No focal neuro deficit. Moves all extremities. Normal speech. Results - Labs CBC & Chem 7: 04/13/18 12:51 04/13/18 12:51 Labs: Laboratory Results - last 24 hr 04/13/18 04/13/18 04/13/18 12:51 12:51 12:51 WBC 11.9 H RBC 3.69 L Hgb 9.6 L Hct 27.9 L MCV 75.8 L MCH 26.0 L MCHC 34.3 RDW 17.7 H Plt Count 356 MPV 7.7 Prelim Diff (Auto) Slide review pending Neut % (Auto) 72.8 H Lymph % (Auto) 17.0 Pitt % (Auto) 8.7 H Eos % (Auto) 1.2 Baso % (Auto) 0.3 Neut # (Auto) 8.6 H Lymph # (Auto) 2.0 Pitt # (Auto) 1.0 H Eos # (Auto) 0.1 Baso # (Auto) 0.0 WBC Differential . Diff Scan Auto diff confirmed Differential Comment . ESR PT 10.0 INR 1.0 APTT 27.2 Sodium 141 Potassium 4.6 Chloride 108 H Carbon Dioxide 28.1 Anion Gap 5 BUN 21 H Creatinine 1.31 H Estimated GFR 73 L Random Glucose 210 H Lactic Acid Calcium 9.0 Total Bilirubin 0.2 AST 16 ALT 20 Alkaline Phosphatase 134 H C-Reactive Protein 10.70 H Total Protein 7.9 Albumin 2.8 L 04/13/18 04/13/18 12:51 13:10 WBC RBC Hgb Hct MCV MCH MCHC RDW Plt Count MPV Prelim Diff (Auto) Neut % (Auto) Lymph % (Auto) Pitt % (Auto) Eos % (Auto) Baso % (Auto) Neut # (Auto) Lymph # (Auto) Pitt # (Auto) Eos # (Auto) Baso # (Auto) WBC Differential Diff Scan Differential Comment ESR 102 H PT INR APTT Sodium Potassium Chloride Carbon Dioxide Anion Gap BUN Creatinine Estimated GFR Random Glucose Lactic Acid 0.9 Calcium Total Bilirubin AST ALT Alkaline Phosphatase C-Reactive Protein Total Protein Albumin - Imaging Impressions Foot X-Ray 04/13/18 12:42 CONCLUSION: Stable examination with postsurgical changes not significantly changed. Caprini VTE Risk Assessment Caprini VTE Risk Assessment: No/Low Risk (score <= 1) Caprini Risk Assessment Model: Point Value = 1 Point Value = 2 Point Value = 3 Point Value = 5 Age 41-60 Minor surgery BMI > 25 kg/m2 Swollen legs Varicose veins or History of unexplained or recurrent spontaneous Oral contraceptives or hormone replacement Sepsis (< 1 month) Serious lung disease, including pneumonia (< 1 month) Abnormal pulmonary function Acute myocardial infarction Congestive heart failure (< 1 month) History of inflammatory bowel disease Medical patient at bed rest Age 61-74 Arthroscopic surgery Major open surgery (> 45 min) Laparoscopic surgery (> 45 min) Malignancy Confined to bed (> 72 hours) Immobilizing plaster cast Central venous access Age >= 75 History of VTE Family history of VTE Factor V Leiden Prothrombin [id number] Lupus anticoagulant Anticardiolipin antibodies Elevated serum homocysteine Heparin-induced thrombocytopenia Other congenital or acquired thrombophilia Stroke (< 1 month) Elective arthroplasty Hip, pelvis, or leg fracture Acute spinal cord injury (< 1 month) Prophylaxis Regimen: Total Risk Factor Score Risk Level Prophylaxis Regimen 0-1 Low Early ambulation 2 Moderate Order ONE of the following: *Sequential Compression Device (SCD) *Heparin 5000 units SQ BID 3-4 Higher Order ONE of the following medications: *Heparin 5000 units SQ TID *Enoxaparin/Lovenox 40 mg SQ daily (WT < 150 kg, CrCl > 30 mL/min) *Enoxaparin/Lovenox 30 mg SQ daily (WT < 150 kg, CrCl > 10-29 mL/min) *Enoxaparin/Lovenox 30 mg SQ BID (WT < 150 kg, CrCl > 30 mL/min) AND/OR *Sequential Compression Device (SCD) 5 or more Highest Order ONE of the following medications: *Heparin 5000 units SQ TID (Preferred with Epidurals) *Enoxaparin/Lovenox 40 mg SQ daily (WT < 150 kg, CrCl > 30 mL/min) *Enoxaparin/Lovenox 30 mg SQ daily (WT < 150 kg, CrCl > 10-29 mL/min) *Enoxaparin/Lovenox 30 mg SQ BID (WT < 150 kg, CrCl > 30 mL/min) AND *Sequential Compression Device (SCD) Assessment and Plan - Plan Patient is a 43 year old AA male with past medical history of diabetes, diabetic neuropathy, HTN, HLD, status post right lower extremity bypass graft Dr. Cullen, right fourth toe amputation by Dr. Gates who came into the hospital for evaluation of worsening right foot diabetic infection. SIRS, Sepsis secondary to Right foot infection Diabetic foot infection 5th toe cellulitis vs osteomyelitis -Meeting SIRS, Sepsis criteria -HR 97 WBC 11.9, ESR 102, C-reactive protein 10.70, creatinine 1.31 -Foot xray showed Stable examination with postsurgical changes not significantly changed -Previous cultures of the foot 04/08/18 -Enterococcus faecalis, pseudomonas aeruginosa -he was placed on ampicillin, Levaquin based on sensitivities -Vancomycin, Zosyn given in the ED. We will continue. -Blood cultures, Wound cultures, follow-up results -Repeat labs in a.m. -Podiatry consulted, appreciate recommendations -Continue daily wound care DM 2, insulin-dependent -Insulin sliding scale. -Monitor Accu-Cheks -Restart home medication if patient is eating regularly -Diabetic diet HTN HLD -Continue home medication, clonidine PRN -Monitor BP trend Acute kidney injury -Baseline creatinine 0.85- 1.1 -Possibly secondary to infection -Avoid nephrotoxins -IV fluid for hydration -Monitor renal indicis DVT prop SCD Heparin Code Status: Full Code Discussed Condition With: Patient, nursing, Dr. Randall Discharge Planning: DC when clinically improved.
[2018-04-13] MEDS: Insulin NovoLOG Aspart Correctional Sugar Inj SQ SCH ×2 (17:13→22:41)
[2018-04-13] MEDS ORDERED: Vancomycin Consult Pharmacy OTHER PRN (17:21)
[2018-04-13] MEDS: Gabapentin 300 MG Capsule PO SCH (17:54)
[2018-04-13] MEDS ORDERED: Vancomycin Inj 1,500 MG in Sodium Chlor 0.9% Inj 500 ML IV.SIG SCH (18:00)
[2018-04-13] MEDS: Piperacil/Tazo 3.375 GM Premix 50 ML IV.SIG SCH (22:34)
[2018-04-13] MEDS: Heparin - SQ 10,000 UNITS/ML Vial SQ SCH (22:34)
[2018-04-13] MEDS: Vancomycin Inj 1,250 MG in Sodium Chlor 0.9% Inj 250 ML IV.SIG SCH (22:34)
[2018-04-14] MEDS: Piperacil/Tazo 3.375 GM Premix 50 ML IV.SIG SCH ×3 (05:27→23:02)
[2018-04-14 09:06] LABS: Baso # (Auto) 0.1 th/mm3 (0.0-0.2); Baso % (Auto) 0.5 % (0.0-2.0); Eos # (Auto) 0.3 th/mm3 (0.0-0.4); Eos % (Auto) 2.8 % (0.0-4.0); Hematocrit 29.4 % (39.0-51.0); Hemoglobin 9.7 gm/dL (13.0-17.0); Lymph % (Auto) 21.5 % (9.0-44.0); Mean Corpuscular Hemoglobin 25.2 pg (27.0-34.0); Mean Corpuscular Volume 76.4 fL (80.0-100.0); Mean Platelet Volume 7.6 fL (7.0-11.0); Neut % (Auto) 64.2 % (16.0-70.0); Platelet Count 361 th/mm3 (150-450); Red Blood Count 3.85 mil/mm3 (4.50-5.90); Red Cell Distribution Width 17.9 % (11.6-17.2); White Blood Count 9.3 th/mm3 (4.0-11.0)
[2018-04-14 09:47] LABS: Albumin 2.4 g/dL (3.4-5.0); Anion Gap 11 meq/L (5-15); Aspartate Aminotransferase 19 U/L (15-37); Blood Urea Nitrogen 21 mg/dL (7-18); Carbon Dioxide 23.6 meq/L (21.0-32.0); Chloride 109 meq/L (98-107); Glomerular Filtration Rate 84 mL/min (>89); Glucose,Random 104 mg/dL (74-106); Sodium 144 meq/L (136-145)
[2018-04-14 09:48] LABS: Alanine Aminotransferase 17 U/L (12-78)
[2018-04-14 09:50] LABS: Alkaline Phosphatase 146 U/L (45-117); Total Protein 7.2 g/dL (6.4-8.2)
[2018-04-14] MEDS: Gabapentin 300 MG Capsule PO SCH ×3 (09:58→18:10)
[2018-04-14] MEDS: amLODIPine 5 MG Tablet PO SCH (09:58)
[2018-04-14] MEDS: Heparin - SQ 10,000 UNITS/ML Vial SQ SCH ×2 (09:59→22:57)
[2018-04-14] MEDS: Insulin NovoLOG Aspart Correctional Sugar Inj SQ SCH ×4 (10:03→23:02)
--- NOTE | 2018-04-14 10:28 | MB ---
cc: Masoud Gates DPM DATE: 04/14/2018 REASON FOR CONSULTATION: Right foot infection, nonhealing wound. HISTORY OF PRESENT ILLNESS: This is a 43-year-old male with a history of diabetes, hypertension, hyperlipidemia, status post right lower extremity bypass, and a history of right fourth digit amputation by the undersigned. The patient has [facility] and Dr. Morales. There was noted to be significant worsening of the dorsal foot. The patient was on ampicillin and Levaquin, but there is noted to be a black discoloration of the right fifth digit. Currently, I am seeing the patient at bedside. He admits to some pain. He denies any nausea, vomiting, fever or chills. PAST MEDICAL HISTORY: As previously stated; however, has a history of CABG, arthroplasty of left ankle. OUTPATIENT MEDICATIONS: Reviewed. He was receiving oral antibiotics. INPATIENT MEDICATIONS: 1. Hydrocodone. 2. Amlodipine. 3. Aspirin. 4. Lipitor. 5. Catapres. 6. Gabapentin. 7. Glucagon. 8. Insulin. 9. Morphine. 10. Narcan. 11. Zofran. 12. Vancomycin. 13. Zosyn. ALLERGIES: None listed. PHYSICAL EXAMINATION: VITAL SIGNS: Temperature 98.1, pulse rate 86, respiratory rate 18, blood pressure 139/61. He is saturating 98% on room air. GENERAL: This is an alert and oriented gentleman seen at bedside exhibiting nonlabored respirations. EXTREMITIES: Right lower extremity was examined. There is noted to be a dry black right fifth digit necrotic fibrotic mixed, foul odor expansile ulceration of amputation site, fourth digit area. It probes deep, likely bony exposure of the metatarsal. There are signs of some granular tissue and redness to the base of the wound. There is a possible early dusky appearance of the third digit. Absent fourth digit. First and second digit have no obvious signs of ischemic changes. The foot is warm. Sensation decreased to light touch. There is an incision of the distal medial ankle that has a mixed fibrotic base; however, it appears to be uncomplicated, does not probe deep. LABORATORY DATA: White blood cell 11.9, trending down to 9.3, hemoglobin and hematocrit 9 and 29, platelet count is 361. ESR elevated at 102. Coagulation profile: PT 10, INR 1.0. Chem-7: Sodium 141, potassium 4.6, chloride 108, CO2 28.1. BUN is 21, creatinine 1.31, random glucose is 135. Foot x-ray: Prior amputation of fourth digit, stable post-surgical findings. No obvious gas noted within the tissue. No obvious acute bony erosive process. ASSESSMENT AND PLAN: Right foot ulcer, status post fourth digit amputation, and now a new gangrenous right fifth digit and possible early gangrene of third digit. The patient and wanted to discuss one more surgery. They wish to proceed with a high likelihood of [id number] amputation; however, they wish to have a discussion regarding the probability of healing. I will hold off on ordering an MRI of the foot. If the patient chooses and vascular permits a below-knee amputation limb salvage, studies are futile at this point; however, if the patient wishes for limb salvage, an MRI of the foot will be indicated as the patient will likely need a transmetatarsal amputation, and I need to see the extent of infection. Likely the x-ray is not showing a bone infection as the ESR is elevated. A consult placed to Dr. José Miguel Cullen, known to the patient. Also I will consult the patient's wound care physician to be certain we have the best plan for this patient. We will continue to follow along. No immediate surgery planned per podiatry, pending discussion with vascular and wound care. CHERISE Vee/mi/tricia , 09:19 AM , 09:28 AM
--- NOTE | 2018-04-14 11:08 | P.CONVS ---
History of Present Illness Service: Cardiovascular Consult date: 04/14/18 Reason for Consult: Non healing wound to R foot/Non palpable pulses Primary Care Provider: UNKNOWN Chief Complaint: "Foot infection" History of Present Illness: Mr. Garibay is a pleasant 43/M well know to us w/ a PMH of severe peripheral arterial occlusive disease with right lower extremity tissue loss Pt underwent a RIGHT above-knee popliteal artery to posterior tibial artery bypass w/ cyro vein on 01/12/18 Pt last seen in our out pt office several weeks ago with a surveillance DARRIUS R-1/ L-0.74 (Right -top pressure 61) Pt stated several weeks ago he developed increased pain (R foot that radiates to his calf) with stagnate wound healing Pt sees Dr. 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/2017) Non palpable distal pulses LE warm w/ motor intact Pt c/o short distance claudication Review of Systems Constitutional: Denies chills, Denies fatigue, Denies fever(s) Cardiovascular: Reports other (R LE Claudication/NO rest pain ), Denies chest pain, Denies foot swelling, Denies shortness of breath Musculoskeletal: Reports radiating pain into limb (Right foot to calf region ) Skin/Breast: Reports wounds (Right foot ulceration ) PMFSH - History History Provided By: Patient - Medical History Medical History: Medical History (Last Reviewed 04/14/18 @ 10:56 by Kasey Caldwell) HLD (hyperlipidemia) Amputated toe Diabetes Hypertension - Surgical History Surgical History: Surgical History (Last Reviewed 04/14/18 @ 10:56 by Kasey Caldwell) History of arthroplasty of left ankle Hx of CABG - Family History Family History: Family History (Last Reviewed 04/14/18 @ 10:56 by Kasey Caldwell) Mother DM type 2 (diabetes mellitus, type 2) Father DM type 2 (diabetes mellitus, type 2) - Tobacco History Second Hand Smoke Exposure: Yes Tobacco Use In Past 30 Days: Yes Smoking Status: Current every day smoker Tobacco Type: Cigarettes Packs Per Day: 0.5 - Alcohol History How Often Do You Have a Drink Containing Alcohol: Never - Substance Use History Substance History: No History of Abuse - Travel History Recent Travel in the [place] Within the Last 8 Weeks: No Recent Travel Out of the Country Within the Last 8 Weeks: No - Immunization History Tetanus Immunization: >5 Years Hx Influenza Vaccine This Season: No Medications and Allergies Allergies Allergy/AdvReac Type Severity Reaction Status Date / Time No Known Allergies Allergy Verified 04/13/18 12:35 Home Medications Medication Instructions Recorded Confirmed Type amlodipine 5 mg PO DAILY 02/21/18 04/13/18 History amoxicillin 500 mg PO Q8HR 02/21/18 04/13/18 History aspirin [Aspirin Low Dose] 81 mg PO DAILY 02/21/18 04/13/18 History atorvastatin 40 mg PO DAILY 02/21/18 04/13/18 History clopidogrel [Plavix] 75 mg PO DAILY 02/21/18 04/13/18 History gabapentin [Neurontin] 300 mg PO TID 02/21/18 04/13/18 History insulin regular human 40 unit SUB-Q BID 02/21/18 04/13/18 History lisinopril 10 mg PO DAILY 02/21/18 04/13/18 History oxycodone 5 mg PO Q4-6H 02/21/18 04/13/18 History levofloxacin [Levaquin] 750 mg PO DAILY 04/13/18 04/13/18 History Active Medications: Active Medications Hydrocodone Bitart/Acetaminophen ([place] 5/325) 1 tab PO Q4H PRN PRN Reason: PAIN SCALE 3 TO 5 Hydrocodone Bitart/Acetaminophen ([place] 10/325) 1 tab PO Q4H PRN PRN Reason: PAIN SCALE 6 TO 10 Last Admin: 04/14/18 10:03 Dose: 1 tab Amlodipine Besylate (Norvasc) 5 mg PO DAILY [facility] Last Admin: 04/14/18 09:58 Dose: 5 mg Aspirin (Ecotrin) 81 mg PO DAILY [facility] Last Admin: 04/14/18 09:58 Dose: 81 mg Atorvastatin Calcium (Lipitor) 40 mg PO DAILY [facility] Last Admin: 04/14/18 09:58 Dose: 40 mg Clonidine HCl (Catapres) 0.1 mg PO Q6H PRN PRN Reason: SBP >180, DBP >100, HR >60 Last Admin: 04/13/18 18:17 Dose: 0.1 mg Dextrose (D50w Vial) 50 ml IV.PUSH UNSCH PRN PRN Reason: PER HYPOGLYCEMIA PROTOCOL Gabapentin (Neurontin) 300 mg PO TID [facility] Last Admin: 04/14/18 09:58 Dose: 300 mg Glucagon (Glucagon Inj) 1 mg OTHER PRN PRN PRN Reason: for Hypoglycemia Protocol Heparin Sodium (Porcine) (Heparin Inj) 5,000 units SQ Q12HR [facility] Last Admin: 04/14/18 09:59 Dose: 5,000 units Piperacillin/Tazobactam/Dextrose (Zosyn 3.375 Gm Premix) 50 mls @ 100 mls/hr IV.SIG Q8H [facility] Last Infusion: 04/14/18 06:07 Dose: Infused Vancomycin HCl 1,250 mg/ (Sodium Chloride) 262.5 mls @ 250 mls/hr IV.SIG Q12H [facility] Last Infusion: 04/14/18 00:01 Dose: Infused Sodium Chloride (Ns Inj) 1,000 mls @ 100 mls/hr IV.CONT .Q10H [facility] Insulin Aspart (Novolog Insulin Correctional Sugar Inj) 0 unit SQ 08,12,17,21 [facility]; Protocol Last Admin: 04/14/18 10:03 Dose: Not Given Miscellaneous Information ([facility] Ordered Lab Info) 0 each OTHER ONCE ONE Stop: 04/15/18 10:46 Morphine Sulfate (Morphine Inj) 4 mg IV.PUSH Q3H PRN PRN Reason: BREAKTHROUGH PAIN Naloxone HCl (Narcan Inj) 0.4 mg IV.PUSH UNSCH PRN PRN Reason: SEE LABEL COMMENTS Ondansetron HCl (Zofran Inj) 4 mg IV.PUSH Q6H PRN PRN Reason: Nausea, vomiting Pharmacy Profile Note (Vancomycin Consult Pharmacy) 1 each OTHER UNSCH PRN PRN Reason: Pharmacy to dose Physical Exam Vital Signs / I&O: Vital Signs 04/13/18 12:42 04/13/18 13:03 04/13/18 13:38 Temperature 98.1 F Pulse Rate 96 H 97 H Respiratory Rate 18 16 Blood Pressure 197/86 H Pulse Oximetry 97 100 04/13/18 15:00 04/13/18 17:13 04/13/18 18:19 Temperature 98.1 F 98.4 F 98.1 F Pulse Rate 97 H 89 Respiratory Rate 18 16 17 Blood Pressure 177/88 H 168/84 H 187/95 H Pulse Oximetry 98 98 04/13/18 20:00 04/14/18 00:00 04/14/18 01:21 Temperature 98.3 F 97.7 F Pulse Rate 86 80 Respiratory Rate 21 20 18 Blood Pressure 156/76 H 124/75 Pulse Oximetry 99 97 04/14/18 08:00 Temperature 98.1 F Pulse Rate 86 Respiratory Rate 18 Blood Pressure 139/61 Pulse Oximetry 98 Intake & Output 04/13/18 04/14/18 04/14/18 18:59 06:59 18:59 Intake Total 1300 / 1300 1562.5 / 1562.5 Balance 1300 / 1300 1562.5 / 1562.5 Weight 108.912 kg Intake: IV 1300 / 1300 362.5 / 362.5 Zosyn 3.375 GM Premix 50 ML @ 50 / 50 100 / 100 100 mls/hr IV.SIG Q8H [facility] Rx#: [id number] NS Inj 1,000 ML @ Wide Open IV. 1000 / 1000 SIG BOLUS ONE Rx#:[id number] Vancomycin Inj 1,000 MG In NS 250 / 250 Inj 250 ML @ 250 mls/hr IV.SIG ONCE ONE Rx#:[id number] Vancomycin Inj 1,250 MG In NS 262.5 / 262.5 Inj 250 ML @ 250 mls/hr IV.SIG Q12H [facility] Rx#:[id number] Oral 1200 / 1200 Other: # Voids 1 4 Date of Last Bowel Movement 04/13/18 Weight On Admission 108.912 kg Neuro: Speech clear GCS 15 NAD CN 2-12 intact Neck: No JVD distention Heart: RRR +S1,S2 Lungs: Resp even CTA Abdomen: S/NT Vascular: Non palpable R DP/PT MONOphasic Dp/PT Foul smelling ulceration to Right dorsal aspect of foot with yellow exudate No surrounding erythema present Healed incision to R upper thigh Extremities: LE 5/5 UE 5/5 LE warm w/ motor intact Laboratory Results - last 24 hr 04/13/18 04/13/18 04/13/18 12:51 12:51 12:51 WBC 11.9 H RBC 3.69 L Hgb 9.6 L Hct 27.9 L MCV 75.8 L MCH 26.0 L MCHC 34.3 RDW 17.7 H Plt Count 356 MPV 7.7 Prelim Diff (Auto) Slide review pending Neut % (Auto) 72.8 H Lymph % (Auto) 17.0 [place] % (Auto) 8.7 H Eos % (Auto) 1.2 Baso % (Auto) 0.3 Neut # (Auto) 8.6 H Lymph # (Auto) 2.0 [place] # (Auto) 1.0 H Eos # (Auto) 0.1 Baso # (Auto) 0.0 WBC Differential . Diff Scan Auto diff confirmed Differential Comment . ESR PT 10.0 INR 1.0 APTT 27.2 Sodium 141 Potassium 4.6 Chloride 108 H Carbon Dioxide 28.1 Anion Gap 5 BUN 21 H Creatinine 1.31 H Estimated GFR 73 L POC Glucose Random Glucose 210 H Lactic Acid Calcium 9.0 Total Bilirubin 0.2 AST 16 ALT 20 Alkaline Phosphatase 134 H C-Reactive Protein 10.70 H Total Protein 7.9 Albumin 2.8 L 04/13/18 04/13/18 04/13/18 12:51 13:10 16:40 WBC RBC Hgb Hct MCV MCH MCHC RDW Plt Count MPV Prelim Diff (Auto) Neut % (Auto) Lymph % (Auto) [place] % (Auto) Eos % (Auto) Baso % (Auto) Neut # (Auto) Lymph # (Auto) [place] # (Auto) Eos # (Auto) Baso # (Auto) WBC Differential Diff Scan Differential Comment ESR 102 H PT INR APTT Sodium Potassium Chloride Carbon Dioxide Anion Gap BUN Creatinine Estimated GFR POC Glucose Random Glucose 148 H Lactic Acid 0.9 Calcium Total Bilirubin AST ALT Alkaline Phosphatase C-Reactive Protein Total Protein Albumin 04/13/18 04/14/18 04/14/18 16:43 05:45 05:45 WBC 9.3 RBC 3.85 L Hgb 9.7 L Hct 29.4 L MCV 76.4 L MCH 25.2 L MCHC 33.0 RDW 17.9 H Plt Count 361 MPV 7.6 Prelim Diff (Auto) Neut % (Auto) 64.2 Lymph % (Auto) 21.5 [place] % (Auto) 11.0 H Eos % (Auto) 2.8 Baso % (Auto) 0.5 Neut # (Auto) 6.0 Lymph # (Auto) 2.0 [place] # (Auto) 1.0 H Eos # (Auto) 0.3 Baso # (Auto) 0.1 WBC Differential . Diff Scan Differential Comment Auto diff final ESR PT INR APTT Sodium 144 Potassium 4.0 Chloride 109 H Carbon Dioxide 23.6 Anion Gap 11 BUN 21 H Creatinine 1.16 Estimated GFR 84 L POC Glucose 152 H Random Glucose 104 Lactic Acid Calcium 9.0 Total Bilirubin 0.3 AST 19 ALT 17 Alkaline Phosphatase 146 H C-Reactive Protein Total Protein 7.2 D Albumin 2.4 L 04/14/18 07:59 WBC RBC Hgb Hct MCV MCH MCHC RDW Plt Count MPV Prelim Diff (Auto) Neut % (Auto) Lymph % (Auto) [place] % (Auto) Eos % (Auto) Baso % (Auto) Neut # (Auto) Lymph # (Auto) [place] # (Auto) Eos # (Auto) Baso # (Auto) WBC Differential Diff Scan Differential Comment ESR PT INR APTT Sodium Potassium Chloride Carbon Dioxide Anion Gap BUN Creatinine Estimated GFR POC Glucose 135 H Random Glucose Lactic Acid Calcium Total Bilirubin AST ALT Alkaline Phosphatase C-Reactive Protein Total Protein Albumin Impressions Foot X-Ray 04/13/18 12:42 CONCLUSION: Stable examination with postsurgical changes not significantly changed. Assessment and Plan - Plan 43/M with a PMH of DM and PVD presented w/ increased R LE tissue loss over the past few weeks Pt c/o stagnate wound healing Non palpable distal pulses noted LE warm w/ motor intact Plan Pt scheduled for a diagnostic R LE angiogram w/ Dr. Cullen on 04/15/18 NPO after midnight Check HBG A1C DARRIUS's ordered Discussed and reviewed procedure w/ pt and spouse Questions answered and consent obtained Kasey Caldwell NP [facility] [phone] - Attending Attestation Pt seen and examined. He is well known to me and underwent complex R LE revascularization for limb salvage. Now with progressive tissue loss. Pt and discussing primary BKA vs attempts at partial foot salvage. Will undergo R LE angiogram to determine if perfusion adequate for consideration of partial foot salvage. Scheduled for . ABIs pending. Moe Cullen MD FACS [employer]PV[employer] industrial psychology teacher [facility] - Heart and Vascular Surgery at [facility] [phone]
--- NOTE | 2018-04-14 11:53 | P.PN ---
Subjective Interval history: This is a pleasant 43 y/o male with DM II, diabetic Neuropathy, Hypertension, Hyperlipidemia, Status post right lower extremity bypass graft Dr. Cullen, right fourth toe amputation by Dr. Gates who came into the hospital for evaluation of worsening right foot diabetic infection. Seen by Vascular surgery non palpable distal pulses as per Vascular, scheduled for diagnostic Right lower extremity angiogram 04/15/18, NPO at midnight, Hemoglobin A1C, DARRIUS's ordered. Seen in his bedroom Obese patient asking to be restarted on his Insulin 70/30 not possible today because he will be NPO at midnight authorized for Shower use, no other complaint, no nausea , vomit or diarrhea. Physical Exam Vital signs: Vital Signs 04/13/18 12:42 04/13/18 13:03 04/13/18 13:38 Temperature 98.1 F Pulse Rate 96 H 97 H Respiratory Rate 18 16 Blood Pressure 197/86 H Pulse Oximetry 97 100 04/13/18 15:00 04/13/18 17:13 04/13/18 18:19 Temperature 98.1 F 98.4 F 98.1 F Pulse Rate 97 H 89 Respiratory Rate 18 16 17 Blood Pressure 177/88 H 168/84 H 187/95 H Pulse Oximetry 98 98 04/13/18 20:00 04/14/18 00:00 04/14/18 01:21 Temperature 98.3 F 97.7 F Pulse Rate 86 80 Respiratory Rate 21 20 18 Blood Pressure 156/76 H 124/75 Pulse Oximetry 99 97 04/14/18 08:00 Temperature 98.1 F Pulse Rate 86 Respiratory Rate 18 Blood Pressure 139/61 Pulse Oximetry 98 Intake & Output 04/13/18 04/14/18 04/14/18 18:59 06:59 18:59 Intake Total 1300 / 1300 1562.5 / 1562.5 Balance 1300 / 1300 1562.5 / 1562.5 Weight 108.912 kg Intake: IV 1300 / 1300 362.5 / 362.5 Zosyn 3.375 GM Premix 50 ML @ 50 / 50 100 / 100 100 mls/hr IV.SIG Q8H [facility] Rx#: [id number] NS Inj 1,000 ML @ Wide Open IV. 1000 / 1000 SIG BOLUS ONE Rx#:[id number] Vancomycin Inj 1,000 MG In NS 250 / 250 Inj 250 ML @ 250 mls/hr IV.SIG ONCE ONE Rx#:[id number] Vancomycin Inj 1,250 MG In NS 262.5 / 262.5 Inj 250 ML @ 250 mls/hr IV.SIG Q12H [facility] Rx#:[id number] Oral 1200 / 1200 Other: # Voids 1 4 Date of Last Bowel Movement 04/13/18 Weight On Admission 108.912 kg Narrative: GENERAL: Obese. well-developed patient, in no apparent distress. SKIN: Warm and dry. HEENT: Normocephalic. Pupils equal round and reactive. Nose without bleeding. Airway patent. NECK: Trachea midline. Supple. CARDIOVASCULAR: Regular rate and rhythm without murmurs, gallops, or rubs. RESPIRATORY: Diminished bases. No wheezes, rales, or rhonchi. GASTROINTESTINAL: Abdomen soft, non-tender, nondistended. Bowel Sounds normoactive x4. MUSCULOSKELETAL: Extremities without clubbing, cyanosis. Right leg bypass incision dsg CDI. Right 5th toe, darkened, purulent drain small amount. absent pulse on Right foot. NEUROLOGICAL: Awake and alert. Oriented to time, place, person. No focal neuro deficit. Moves all extremities. Normal speech. Results - Labs CBC & Chem 7: 04/14/18 05:45 04/14/18 05:45 Laboratory Results - last 24 hr 04/13/18 04/13/18 04/13/18 12:51 12:51 12:51 WBC 11.9 H RBC 3.69 L Hgb 9.6 L Hct 27.9 L MCV 75.8 L MCH 26.0 L MCHC 34.3 RDW 17.7 H Plt Count 356 MPV 7.7 Prelim Diff (Auto) Slide review pending Neut % (Auto) 72.8 H Lymph % (Auto) 17.0 [place] % (Auto) 8.7 H Eos % (Auto) 1.2 Baso % (Auto) 0.3 Neut # (Auto) 8.6 H Lymph # (Auto) 2.0 [place] # (Auto) 1.0 H Eos # (Auto) 0.1 Baso # (Auto) 0.0 WBC Differential . Diff Scan Auto diff confirmed Differential Comment . ESR PT 10.0 INR 1.0 APTT 27.2 Sodium 141 Potassium 4.6 Chloride 108 H Carbon Dioxide 28.1 Anion Gap 5 BUN 21 H Creatinine 1.31 H Estimated GFR 73 L POC Glucose Random Glucose 210 H Lactic Acid Calcium 9.0 Total Bilirubin 0.2 AST 16 ALT 20 Alkaline Phosphatase 134 H C-Reactive Protein 10.70 H Total Protein 7.9 Albumin 2.8 L 04/13/18 04/13/18 04/13/18 12:51 13:10 16:40 WBC RBC Hgb Hct MCV MCH MCHC RDW Plt Count MPV Prelim Diff (Auto) Neut % (Auto) Lymph % (Auto) [place] % (Auto) Eos % (Auto) Baso % (Auto) Neut # (Auto) Lymph # (Auto) [place] # (Auto) Eos # (Auto) Baso # (Auto) WBC Differential Diff Scan Differential Comment ESR 102 H PT INR APTT Sodium Potassium Chloride Carbon Dioxide Anion Gap BUN Creatinine Estimated GFR POC Glucose Random Glucose 148 H Lactic Acid 0.9 Calcium Total Bilirubin AST ALT Alkaline Phosphatase C-Reactive Protein Total Protein Albumin 04/13/18 04/14/18 04/14/18 16:43 05:45 05:45 WBC 9.3 RBC 3.85 L Hgb 9.7 L Hct 29.4 L MCV 76.4 L MCH 25.2 L MCHC 33.0 RDW 17.9 H Plt Count 361 MPV 7.6 Prelim Diff (Auto) Neut % (Auto) 64.2 Lymph % (Auto) 21.5 [place] % (Auto) 11.0 H Eos % (Auto) 2.8 Baso % (Auto) 0.5 Neut # (Auto) 6.0 Lymph # (Auto) 2.0 [place] # (Auto) 1.0 H Eos # (Auto) 0.3 Baso # (Auto) 0.1 WBC Differential . Diff Scan Differential Comment Auto diff final ESR PT INR APTT Sodium 144 Potassium 4.0 Chloride 109 H Carbon Dioxide 23.6 Anion Gap 11 BUN 21 H Creatinine 1.16 Estimated GFR 84 L POC Glucose 152 H Random Glucose 104 Lactic Acid Calcium 9.0 Total Bilirubin 0.3 AST 19 ALT 17 Alkaline Phosphatase 146 H C-Reactive Protein Total Protein 7.2 D Albumin 2.4 L 04/14/18 07:59 WBC RBC Hgb Hct MCV MCH MCHC RDW Plt Count MPV Prelim Diff (Auto) Neut % (Auto) Lymph % (Auto) [place] % (Auto) Eos % (Auto) Baso % (Auto) Neut # (Auto) Lymph # (Auto) [place] # (Auto) Eos # (Auto) Baso # (Auto) WBC Differential Diff Scan Differential Comment ESR PT INR APTT Sodium Potassium Chloride Carbon Dioxide Anion Gap BUN Creatinine Estimated GFR POC Glucose 135 H Random Glucose Lactic Acid Calcium Total Bilirubin AST ALT Alkaline Phosphatase C-Reactive Protein Total Protein Albumin Microbiology 04/13/18 13:10 Blood - Peripheral Aerobic Blood Culture - Preliminary No growth in 1 day 04/13/18 13:10 Blood - Peripheral Anaerobic Blood Culture - Preliminary No growth in 1 day 04/13/18 12:51 Blood - Peripheral Aerobic Blood Culture - Preliminary No growth in 1 day 04/13/18 12:51 Blood - Peripheral Anaerobic Blood Culture - Preliminary No growth in 1 day - Imaging Impressions Foot X-Ray 04/13/18 12:42 CONCLUSION: Stable examination with postsurgical changes not significantly changed. Assessment and Plan - Plan Patient is a 43 year old AA male with past medical history of diabetes, diabetic neuropathy, HTN, HLD, status post right lower extremity bypass graft Dr. Cullen, right fourth toe amputation by Dr. Gates who came into the hospital for evaluation of worsening right foot diabetic infection. SIRS, Sepsis secondary to Right foot infection Diabetic foot infection Seen by Vascular surgery non palpable distal pulses as per Vascular, scheduled for diagnostic Right lower extremity angiogram 04/15/18, NPO at midnight, Hemoglobin A1C, DARRIUS's ordered, 5th toe cellulitis vs osteomyelitis -Meeting SIRS, Sepsis criteria -HR 97 WBC 11.9, ESR 102, C-reactive protein 10.70, creatinine 1.31 -Foot xray showed Stable examination with postsurgical changes not significantly changed -Previous cultures of the foot 04/08/18 -Enterococcus faecalis, pseudomonas aeruginosa -he was placed on ampicillin, Levaquin based on sensitivities -Vancomycin, Zosyn given in the ED. today he has grown Group D Enterococcus already removed Zosyn and continued on Vancomycin. DM 2, insulin-dependent -Keep blood sugar below 180 gr/dl HTN controlled HLD continue Home medicines. Acute kidney injury -Baseline creatinine 0.85- 1.1 -continue IV hydration improving to baseline. Obesity strongly recommended diet and exercise. DVT prop SCD Heparin Code Status: full code Discussed Condition With: Patient and nurse Miss Rojo Discharge Planning: once cleared by specialists.
[2018-04-14] MEDS: Vancomycin Inj 1,250 MG in Sodium Chlor 0.9% Inj 250 ML IV.SIG SCH ×2 (11:55→22:59)
[2018-04-14] MEDS: Sod Chloride 0.9% Inj 1,000 ML IV.CONT SCH ×2 (11:56→23:02)
[2018-04-14 15:12] LABS: Hemoglobin A1c 6.1 % (4.3-6.0)
[2018-04-15] MEDS: Sod Chloride 0.9% Inj 1,000 ML IV.CONT SCH ×2 (03:21→14:42)
[2018-04-15] MEDS: Piperacil/Tazo 3.375 GM Premix 50 ML IV.SIG SCH ×3 (06:02→23:12)
[2018-04-15] MEDS: Insulin NovoLOG Aspart Correctional Sugar Inj SQ SCH ×4 (09:33→23:18)
[2018-04-15] MEDS: Gabapentin 300 MG Capsule PO SCH ×3 (09:34→18:04)
[2018-04-15] MEDS: amLODIPine 5 MG Tablet PO SCH (09:34)
[2018-04-15] MEDS: Heparin - SQ 10,000 UNITS/ML Vial SQ SCH ×2 (09:35→23:22)
[2018-04-15] MEDS ORDERED: Heparin/NS PF Inj 1,000 ML ONE (09:57)
[2018-04-15] MEDS ORDERED: fentaNYL Citrate Inj 100 MCG/2 ML Ampul ONE (09:57)
[2018-04-15] MEDS ORDERED: Heparin 10,000 UNITS/10 ML Vial (for IV use) ONE (09:58)
--- NOTE | 2018-04-15 10:31 | CATHPROC ---
Access Closure HIS Report Study Information Study Number Admission Scheduled Start Study Start [id number] Apr 13 2018 3:29PM 04/15/2018 Apr 15 2018 9:49AM [facility] Cardiac Catheterization Admit Source Facility Department Other [facility] - Plant Nursery Worker Physician and Clinical Staff Initial MD Cullen, Moe Banquet Prep Cook Michelle BarcenasRN Recorder Reshma Bansal,RT(R) Scrub Kiel WilsonRT(R) Procedures Performed Procedure Location (Site) Vessel Name Angiogram (manual) Fem Sup. (right) Femoral Art Angiogram (manual) PELVIS Angiogram (manual) Peroneal (right) Popliteal Angiogram (manual) Popliteal R (R10) Popliteal Angiogram (manual) Tib, Ant. (right) Popliteal Angiogram (manual) Tib, Post (right) Popliteal Wire insertion Fem Art (left) Femoral Art Equipment Time Battery Container Tester Aluminum Description Size Mfg Part Number Used/Scraped [id number] 10:14 ANGIO-DYNAMICS OMNI FLUSH 65CM CATHETER FR 4 Used *[id number] INTRODUCER SET, 10:11 [employer] FR 5 [id number] *[id number] Used MICROPUNCTURE STIFF INTRODUCER SET, 10:12 [employer] FR 5 [id number] *[id number] Used MICROPUNCTURE STIFF INTRODUCER SET, 09:51 [employer] FR 5 [id number] *[id number] Used MICROPUNCTURE STIFF INTRODUCER SET, 10:08 [employer] FR 5 [id number] *[id number] Used MICROPUNCTURE STIFF WIRE, AMPLATZ SUPER STIFF 10:13 Access Closure .035 [id number] *[id number] Used STRT [id number] 09:51 [employer] BLANKET,WARM AIR CCL * Used *[id number] 09:51 [employer] PACK, CCL CUSTOM * Used *[id number] TUBING, PRESSURE INJECTION [id number] 09:51 NAMIC 72" Used 72" *[id number] 09:51 NYCOMED OMNIPAQUE, 300 MG, 150ML 150ML [id number] Used 09:51 [employer] OMNIPAQUE, 300 MG, 50ML 50ML [id number] Used [id number] 10:10 TER[employer] SHEATH, FR4 TERUMO (10CM) FR 4 Used *[id number] 10:10 [employer] SHEATH, FR4 TERUMO (10CM) FR 4 Used *[id number] WIRE, ANGLED GLIDE .035 [id number] 09:51 TERUMO MEDICAL/SERVANDO 260CM Used 260CM *[id number] Equipment Model, Serial, Lot Number and Expiration Data Description Model Number Serial Number Lot Number Expiration Date INTRODUCER SET, [id number] 03-20-2021 MICROPUNCTURE STIFF INTRODUCER SET, [id number] 03-20-2021 MICROPUNCTURE STIFF History: Current Medications Medication Dosage/Unit Route Frequency Last Date/Time Taken ASA LIPITOR NORVASC History: Allergies Allergy Reaction No Known Allergies History: Risk Factors Family History of Hypertension Dyslipidemia Previous FL Previous Heart Failure Premature CAD Yes Yes No No No Prior Valve Prior PCI Prior CABG Surgery No No No Cerebrovascular Peripheral Artery Chronic Lung On Dialysis Diabetes Diabetes Therapy Disease Disease Disease No No Yes No Yes Oral History: Risk Factors Selection Items Current Smoker History: Stress Tests Stress or Imaging Studies Performed No History: Other Disease Selection Items HTN History: Other Current Smoker Yes Labs Hgb (g/dl) Hct (%) WBC (l/cumm) Platelets (thousands) 11.60-17.00 35.00-51.00 4.00-11.00 150.00-450.00 9.7 29.4 9.3 361 Glucose (mg/dl) BUN (mg/dl) Creatinine (mg/dl) BUN:Creatinine (1:x) 74.00-106.00 7.00-18.00 0.50-1.30 10.00-20.00 166 21 1.1 19.1 Na (meq/l) K (meq/l) 136.00-145.00 3.50-5.10 144 4 INR (PTT:PT) 0.90-1.10 1 CPK-MB (ng/ML) 0.50-3.60 Not Drawn Medication Medication Total Dose (Bolus/Oral) Medication Total Dosage/Unit 1% XYLOCAINE 20 mL FENTANYL 50 mcg VERSED 2 mg Medications (Bolus/Oral) Medication Time Given Dosage/Unit Administered By Reason 1% XYLOCAINE 04/15/2018 10:02:28 AM 20 mL Moe Cullen 20 mL 1% XYLOCAINE given in lab by Moe Cullen in Left Groin via Subcutaneous. VERSED 04/15/2018 10:02:47 AM 2 mg Michelle Barcenas 2 mg VERSED given in lab by Michelle Barcenas RN via Peripheral IV. FENTANYL 04/15/2018 10:03:40 AM 50 mcg Michelle Barcenas 50 mcg FENTANYL given in lab by Michelle Barcenas, RN via Peripheral IV. Medication (Drip) Medication Time Given Dosage/Unit Concentration/Unit Diluent (ml) Solution IV Solutions 04/15/2018 9:51:58 AM 0 mL (IV) 500 NaCl .9 IV Solutions given in lab by Michelle Barcenas, RN in Left Antecubital via Peripheral IV. Pump/Drip Giovanni w = 20 ml/hr using NaCl .9. Initial Case Assessment Cardiovascular HR Rhythm NIBP 64 IRREG 178/101 Edema Present Skin color Skin None Normal Warm Circulatory - Right Pulses Dorsalis Pedis Femoral d 1 Scale (0,1,2,3,4,d) Circulatory - Left Pulses Dorsalis Pedis Femoral d 1 Scale (0,1,2,3,4,d) Circulatory - Lower Extremities Color Lower Right Color Lower Left Normal Normal Neurological State Oriented to time-place- Alert Moves all extremities person Respiration - General Respiration Rate SpO2 (%) (B/min) 10 99 Final Case Assessment Cardiovascular HR Rhythm NIBP Chest Pain 70 irreg 176/106 0 Edema Present Skin color Skin None Normal Warm Circulatory - Right Pulses Dorsalis Pedis Femoral d 1 Scale (0,1,2,3,4,d) Circulatory - Left Pulses Dorsalis Pedis Femoral d 1 Scale (0,1,2,3,4,d) Circulatory - Lower Extremities Color Lower Right Color Lower Left Normal Normal Neurological State Oriented to time-place- Alert Moves all extremities person Respiration - General Respiration Rate SpO2 (%) (B/min) 14 99 Chronological Log Time Study Chronological Log 9:49:11 Patient arrived via Bed. 9:49:12 Patient Name, D.O.B, / Armband Verified By R.N. 9:49:13 Consent signed by the physician and the patient and verified by the Plant Nursery Worker staff. Vitals capture started with the following parameters, Patient=Adult, Interval=5 min, Initial Pr chutmt=238 mmHg, 9:49:15 Deflation Rate=5 mmHg, Cuff placed on Left Arm 9:50:01 Reference ECG taken 9:50:02 HR=76 bpm, XGFH=614/101 mmhg, SpO2=98.0 %, Resp=12 B/min, Pain=0, Blade=10, Borges=2 9:50:15 MD arrived. 9:51:16 Pre-op and post- op instructions given; patient acknowledges understanding of instructions. 9:51:17 Verbal Stimulation=2 Physical Stimulation=2 Airway=2 Respiration=2 TOTAL=8. (0=absent, 1=anuja snyder, 2=present) 9:51:29 Patient has been NPO for More than 6Hrs. 9:51:29 Skin Breakdown- DORSAL WOUND RIGHT FOOT 9:51:51 A # 20 IV was noted in the Antecubital (left). Grade = 0 IV Solutions given in lab by Michelle Barcenas RN in Left Antecubital via Peripheral IV. Pump/Dr ip Flow = 20 ml/hr using 9:51:58 NaCl .9. 9:51:59 MD paged 9:52:21 History and physical on the chart or being dictated. Assessment: Initial Case, HR=64 BPM, Rhythm=IRREG, RRFP=601/101 mmhg, Edema=None, Color=Normal, Skin = Warm Right Pulses: David Ped=d, Femoral=1 Left Pulses: David Ped=d, Femoral=1 9:52:22 Lower Right Extremities: Color=Normal Lower Left Extremities: Color=Normal Neurological: State=Alert, Ox3, VERDUZCO Respiration: Resp=10 B/min, SpO2=99 % 9:52:54 Bilateral groins prepped with 2% chlorhexidine, and draped after a 3 minute waiting time. Time Out. Correct patient, correct procedure, correct physician, labs, allergies, and equipment verified with asset availability leader 9:53:53 team present. Fire risk assesment completed (see hard stop sheet for coding). Time Out Concu rred by MD and individual staff in procedure. 9:55:03 HR=86 bpm, FTFY=003/105 mmhg, SpO2=99.0 %, Resp=18 B/min, Pain=0, Blade=10, Borges=2 10:00:04 HR=78 bpm, QCRW=068/99 mmhg, SpO2=98.0 %, Resp=17 B/min, Pain=0, Blade=10, Borges=2 10:02:18 Case Start 10:02:19 Verbal Stimulation=2 Physical Stimulation=2 Airway=2 Respiration=2 TOTAL=8. (0=absent, 1=li derikd, 2=present) 10:02:28 20 mL 1% XYLOCAINE given in lab by Moe Cullen in Left Groin via Subcutaneous. 10:02:47 2 mg VERSED given in lab by Michelle Barcenas, QUINTEN via Peripheral IV. 10:03:40 50 mcg FENTANYL given in lab by Michelle Barcenas, QUINTEN via Peripheral IV. 10:05:01 HR=86 bpm, VTDE=619/104 mmhg, SpO2=97.0 %, Resp=25 B/min, Pain=0, Blade=10, Borges=2 Access site was Left Femoral Artery with micropuncture kit x3 10:07:01 10:10:23 A WIRE, AMPLATZ SUPER STIFF STRT .035 was inserted via Fem Art (left). 10:10:41 HR=83 bpm, FXLJ=110/101 mmhg, SpO2=97.0 %, Resp=19 B/min, Pain=0, Blade=10, Borges=2 10:13:02 A SHEATH, FR4 TERUMO (10CM) FR 4 was advanced into the Fem Art (left) using the Percutaneou s technique. A OMNI FLUSH 65CM CATHETER FR 4 was advanced over a wire. OMNIPAQUE, 300 MG, 150ML 150ML was us ed for 10:14:33 injections. 10:15:02 HR=68 bpm, QHSJ=199/97 mmhg, SpO2=96.0 %, Resp=15 B/min, Pain=0, Blade=10, Borges=2 10:16:18 PELVIS angiogram, manually injected. 10:16:24 A WIRE, ANGLED GLIDE .035 260CM 260CM was inserted via Fem Art (left). 10:18:01 Fem Sup. (right) angiogram, manually injected. 10:19:01 Popliteal R (R10) angiogram, manually injected. 10:20:03 HR=86 bpm, CJRW=466/102 mmhg, SpO2=97.0 %, Resp=13 B/min, Pain=0, Blade=10, Borges=2 10:20:44 Peroneal (right) angiogram, manually injected. 10:20:56 Tib, Ant. (right) angiogram, manually injected. 10:21:03 Tib, Post (right) angiogram, manually injected. 10:23:10 Catheter was removed 10:24:56 Case End (Physician broke scrub) Assessment: Final Case, HR=70 BPM, Rhythm=irreg, WZHH=748/106 mmhg, Chest Pain=0, Edema=None, Color=Normal, Skin = Warm Right Pulses: David Ped=d, Femoral=1 Left Pulses: David Ped=d, Femoral=1 10:24:59 Lower Right Extremities: Color=Normal Lower Left Extremities: Color=Normal Neurological: State=Alert, Ox3, VERDUZCO Respiration: Resp=14 B/min, SpO2=99 % 10:25:06 HR=72 bpm, MNEA=056/106 mmhg, SpO2=99.0 %, Resp=13 B/min, Pain=0, Blade=10, Borges=2 10:25:34 Catheter(s) removed without difficulty 10:25:37 Sheath removed; pressure applied to access site. rochelle wilson 10:25:47 Sterile dressing applied to site 10:25:48 No case complications noted. 10:25:49 Cine recording checked. 10:25:50 Bedside Report will be given. 10:30:05 HR=85 bpm, LGNN=955/104 mmhg, SpO2=98.0 %, Resp=15 B/min, Pain=0, Blade=10, Borges=2 End Study - Contrast Media Used In Study Contrast Total Opened (mL) Total Used (mL) Total Wasted (mL) Omnipaque 30 30 0 End Study - Maximum Contrast Load Max Contrast Load (mL) 493.8 End Study - Radiation Exposure Fluoro Time (minutes) 2.2 End Study - Sheaths Sheaths Pulled By Sheath Hold Time (min) Kiel Wilson End Study - Patient Disposition Complications Transferred To No Regular Bed
--- NOTE | 2018-04-15 10:35 | P.OP ---
- Preoperative Diagnosis (1) PAD (peripheral artery disease) (2) Diabetic foot infection - Postoperative Diagnosis (1) Diabetic foot infection (2) PAD (peripheral artery disease) Date of procedure: 04/15/18 Procedure: Aortogram w/ R LE angiogram Implants: none Surgeon: Moe Cullen MD Estimated blood loss (mL): 10 Pathology: none sent Operation and Findings: 1. No aortoiliac disease 2. R SFA and popliteal stenosis 3. Occluded tibial arteries x 3 until perimalleolar PT could have MANAGER HEART-PT bypass vs BKA Will discuss with patient but would favor bypass given age.
[2018-04-15] MEDS ORDERED: Pharmacy Ordered Lab Info OTHER ONE (10:45)
[2018-04-15] MEDS ORDERED: Iohexol 350 MG/ML 50 ML Vial (for Cath Lab) IVCONTRAST ONE (11:44)
[2018-04-15] MEDS: Vancomycin Inj 1,250 MG in Sodium Chlor 0.9% Inj 250 ML IV.SIG SCH ×2 (12:52→23:12)
--- NOTE | 2018-04-15 14:20 | MP ---
cc: Moe Cullen MD DATE OF OPERATION: 04/15/2018 PREOPERATIVE DIAGNOSES: 1. Right extremity tissue loss. 2. Peripheral vascular disease. POSTOPERATIVE DIAGNOSES: 1. Right extremity tissue loss. 2. Peripheral vascular disease. PROCEDURE PERFORMED: Aortogram with right extremity angiogram. ATTENDING SURGEON: Moe Cullen MD ANESTHESIA: Local with sedation. INDICATIONS: Mr. Garibay is a 43-year-old gentleman with severe peripheral vascular disease. He is taken to the operating room for angiographic evaluation and treatment of his right lower extremity. There is no prior catheterization available for my review. DESCRIPTION OF PROCEDURE: Informed consent was obtained from the patient, he was taken to the operating room and placed supine on the operating table. An appropriate timeout was taken to ensure the patient identity, operative site, and the planned procedure. Everyone in the room agreed with the timeout and we proceeded. His bilateral groins were prepped and draped and left groin was anesthetized with 1% lidocaine. A 21-gauge micropuncture needle was used to access the left common femoral artery. This was exchanged using Seldinger technique for micropuncture sheath through which a 0.035 Amplatz wire was introduced. The micropuncture sheath was exchanged for a 4-Greenlandic sheath and a VCF catheter was placed over the wire into the sheath and aortogram was obtained. The Glidewire was introduced and navigated into the right common femoral artery. The VCF catheter advanced over this and a right lower extremity arteriogram was obtained. The wire, catheter, and sheath were removed and pressure held for hemostasis. There were no complications. I was present and scrubbed for the entire procedure. The patient has a patent terminal aorta, common iliac arteries, and external iliac arteries bilaterally without any hemodynamically significant stenoses. The right common femoral artery and profunda are patent. The SFA is patent proximally and had several areas of stenosis and the popliteal artery is patent. There were large geniculate collaterals which arise. The tibial trifurcation is completely occluded. The evidence of an old bypass is occluded and collaterals gave rise to only a posterior tibial artery at the level of the distal calf, which perfused at the foot. MD AILIN Roberts/corey/martha , 12:30 PM , 12:37 PM
--- NOTE | 2018-04-15 15:29 | ECHRPT ---
EXAM DATE: 04/15/2018 2:40 PM EDT AGE/SEX: 43 years / Male INDICATIONS: Diabetic right foot infection CLINICAL DATA: This is the patient's initial encounter. Patient reports that signs and symptoms have been present for 1 week and indicates a pain score of 5/10. MEDICAL/SURGICAL HISTORY: . Amputated toe, diabetes, hyperlipidemia, hypertension . CABG, righ t lower extremity bypass, left ankle arthrop COMPARISON: No prior exams available for comparison. TECHNIQUE: Four-cuff ankle and brachial pressures were obtained. Pulse cuff waveform tracings of the ankles were recorded, and ankle-brachial indices were calculated. PRESSURES (mmHg): Brachial (arm) : RIGHT: 145, LEFT: IV SITE Ankle : RIGHT: 55, LEFT: 91 DARRIUS : RIGHT: 0.38, LEFT: 0.63 TBI : RIGHT: 0.10, LEFT: 0.33 FINDINGS: Pulsed-Cuff Waveform: Glasgow waveforms, most prominently on the right. Other: None. CONCLUSION: 1. Severe right lower extremity peripheral arterial disease with large component of small vessel dis ease. 2. Moderate range left lower extremity DARRIUS's with reduced TBI's consistent with component of small v essel disease. 3. Consider CT angiography for further evaluation. Electronically signed by: Giorgi Rider MD 04/15/2018 3:27 PM EDT
--- NOTE | 2018-04-15 16:56 | P.PNVS ---
Subjective Subjective/Hospital Course: Pt NOS s/p R LE angiogram; resting comfortably, no problems. Objective Vital Signs / I&O: Vital Signs 04/14/18 20:00 04/15/18 00:00 04/15/18 01:24 Temperature 97.3 F L 98.2 F Pulse Rate 93 H 92 H Respiratory Rate 17 18 18 Blood Pressure 175/89 H 153/71 H Pulse Oximetry 96 97 04/15/18 08:00 04/15/18 10:50 Temperature 97.7 F Pulse Rate 89 Respiratory Rate 18 Blood Pressure 157/75 H Pulse Oximetry 97 98 Intake & Output 04/14/18 04/15/18 04/15/18 18:59 06:59 18:59 Intake Total 1512.5 / 1512.5 2112.5 / 2112.5 1362.50 / 1362.50 Balance 1512.5 / 1512.5 2112.5 / 2112.5 1362.50 / 1362.50 Weight 108.7 kg Intake: IV 312.5 / 312.5 1312.5 / 1312.5 1362.50 / 1362.50 NS Inj 1,000 ML @ 100 mls/hr IV 1000 / 1000 1000 / 1000 .CONT .Q10H [facility] Rx#:[id number] Zosyn 3.375 GM Premix 50 ML @ 50 / 50 50 / 50 100 / 100 100 mls/hr IV.SIG Q8H [facility] Rx#: [id number] Vancomycin Inj 1,250 MG In NS 262.5 / 262.5 262.5 / 262.5 262.50 / 262.50 Inj 250 ML @ 250 mls/hr IV.SIG Q12H [facility] Rx#:[id number] Oral 1200 / 1200 800 / 800 Other: # Voids 6 4 Physical Exam: resting comfortably; R foot without palpable pulses Laboratory Results - last 24 hr 04/13/18 04/14/18 04/14/18 22:38 17:57 22:57 POC Glucose 199 H 189 H 187 H 04/15/18 04/15/18 04/15/18 07:50 13:27 16:38 POC Glucose 166 H 224 H 242 H Microbiology 04/13/18 13:00 Gram Stain - Final Wound - Foot Wound Culture - Final Enterococcus faecalis 04/13/18 13:10 Aerobic Blood Culture - Preliminary Blood - Peripheral No growth in 2 days Anaerobic Blood Culture - Preliminary No growth in 2 days 04/13/18 12:51 Aerobic Blood Culture - Preliminary Blood - Peripheral No growth in 2 days Anaerobic Blood Culture - Preliminary No growth in 2 days Impressions Extremity Arterial Study 04/14/18 00:00 CONCLUSION: 1. Severe right lower extremity peripheral arterial disease with large component of small vessel disease. 2. Moderate range left lower extremity DARRIUS's with reduced TBI's consistent with component of small vessel disease. 3. Consider CT angiography for further evaluation. Assessment and Plan - Plan NOS s/p R LE angiogram I discussed with the patient the options for revascularization. He has no autogenous conduit suitable and his option would be a R DECK SPECIALIST to perimalleolar PT bypass with cryo. His target looks reasonable on angiogram. I discussed with Dr. Gates and Dr. Morales and we all agree there is a chance to save his leg, although the patency of re-do bypasses, limited conduit and near pedal target is suboptimal. However, the patient is worried about "being back here in 3 months" facing a BKA , and expresses a desire for a primary BKA now. I asked him to think it over and talk with his . I will regroup with him tomorrow and could do the bypass likely early next week if he wants.
[2018-04-15] MEDS ORDERED: amLODIPine 5 MG Tablet PO ONE (18:11)
--- NOTE | 2018-04-15 18:17 | P.PN ---
Subjective Interval history: This is a pleasant 43 y/o male with DM II, diabetic Neuropathy, Hypertension, Hyperlipidemia, Status post right lower extremity bypass graft Dr. Cullen, right fourth toe amputation by Dr. Gates who came into the hospital for evaluation of worsening right foot diabetic infection. Seen by Vascular surgery non palpable distal pulses as per Vascular, scheduled for diagnostic Right lower extremity angiogram 04/15/18, NPO at midnight, Hemoglobin A1C, DARRIUS's ordered. 04/15: Stable in his bedroom status post right lower extremity angiogram Severe right lower extremity peripheral arterial disease with large component of small vessel disease, Moderate range left lower extremity DARRIUS's with reduced TBI's proposal for R DATABASE DEVELOPMENT PROJECT MANAGER to Perimalleolar PT bypass with Cryo. the patient is asking for BKA and surgery recommended to think about it, I talk to the patient while he was eating his Dinner, he still has not came to a decision will follow in am tomorrow Physical Exam Vital signs: Vital Signs 04/14/18 20:00 04/15/18 00:00 04/15/18 01:24 Temperature 97.3 F L 98.2 F Pulse Rate 93 H 92 H Respiratory Rate 17 18 18 Blood Pressure 175/89 H 153/71 H Pulse Oximetry 96 97 04/15/18 08:00 04/15/18 10:50 04/15/18 16:00 Temperature 97.7 F 98.3 F Pulse Rate 89 92 H Respiratory Rate 18 20 Blood Pressure 157/75 H 185/93 H Pulse Oximetry 97 98 96 04/15/18 17:12 Temperature Pulse Rate Respiratory Rate Blood Pressure Pulse Oximetry 98 Intake & Output 04/14/18 04/15/18 04/15/18 18:59 06:59 18:59 Intake Total 1512.5 / 1512.5 2112.5 / 2112.5 1362.50 / 1362.50 Balance 1512.5 / 1512.5 2112.5 / 2112.5 1362.50 / 1362.50 Weight 108.7 kg Intake: IV 312.5 / 312.5 1312.5 / 1312.5 1362.50 / 1362.50 NS Inj 1,000 ML @ 100 mls/hr IV 1000 / 1000 1000 / 1000 .CONT .Q10H [facility] Rx#:[id number] Zosyn 3.375 GM Premix 50 ML @ 50 / 50 50 / 50 100 / 100 100 mls/hr IV.SIG Q8H [facility] Rx#: [id number] Vancomycin Inj 1,250 MG In NS 262.5 / 262.5 262.5 / 262.5 262.50 / 262.50 Inj 250 ML @ 250 mls/hr IV.SIG Q12H [facility] Rx#:[id number] Oral 1200 / 1200 800 / 800 Other: # Voids 6 4 Narrative: GENERAL: Obese. well-developed patient, in no apparent distress. SKIN: Warm and dry. HEENT: Normocephalic. Pupils equal round and reactive. Nose without bleeding. Airway patent. NECK: Trachea midline. Supple. CARDIOVASCULAR: Regular rate and rhythm without murmurs, gallops, or rubs. RESPIRATORY: Diminished bases. No wheezes, rales, or rhonchi. GASTROINTESTINAL: Abdomen soft, non-tender, nondistended. Bowel Sounds normoactive x4. MUSCULOSKELETAL: Extremities without clubbing, Right foot dressed. and ankle. NEUROLOGICAL: Awake and alert. Results - Labs CBC & Chem 7: 04/14/18 05:45 04/14/18 05:45 Laboratory Results - last 24 hr 04/13/18 04/14/18 04/14/18 22:38 17:57 22:57 POC Glucose 199 H 189 H 187 H 04/15/18 04/15/18 04/15/18 07:50 13:27 16:38 POC Glucose 166 H 224 H 242 H Microbiology 04/13/18 13:00 Wound - Foot Gram Stain - Final 04/13/18 13:00 Wound - Foot Wound Culture - Final Enterococcus faecalis 04/13/18 13:10 Blood - Peripheral Aerobic Blood Culture - Preliminary No growth in 2 days 04/13/18 13:10 Blood - Peripheral Anaerobic Blood Culture - Preliminary No growth in 2 days 04/13/18 12:51 Blood - Peripheral Aerobic Blood Culture - Preliminary No growth in 2 days 04/13/18 12:51 Blood - Peripheral Anaerobic Blood Culture - Preliminary No growth in 2 days - Imaging Impressions Extremity Arterial Study 04/14/18 00:00 CONCLUSION: 1. Severe right lower extremity peripheral arterial disease with large component of small vessel disease. 2. Moderate range left lower extremity DARRIUS's with reduced TBI's consistent with component of small vessel disease. 3. Consider CT angiography for further evaluation. - Procedures DATE OF OPERATION: 04/15/2018 PREOPERATIVE DIAGNOSES: 1. Right extremity tissue loss. 2. Peripheral vascular disease. POSTOPERATIVE DIAGNOSES: 1. Right extremity tissue loss. 2. Peripheral vascular disease. PROCEDURE PERFORMED: Aortogram with right extremity angiogram. ATTENDING SURGEON: Moe Cullen MD Extremity Arterial Study 04/14/18 00:00 CONCLUSION: 1. Severe right lower extremity peripheral arterial disease with large component of small vessel disease. 2. Moderate range left lower extremity DARRIUS's with reduced TBI's consistent with component of small vessel disease. 3. Consider CT angiography for further evaluation. Assessment and Plan - Plan Patient is a 43 year old AA male with past medical history of diabetes, diabetic neuropathy, HTN, HLD, status post right lower extremity bypass graft Dr. Cullen, right fourth toe amputation by Dr. Gates who came into the hospital for evaluation of worsening right foot diabetic infection. SIRS, Sepsis secondary to Right foot infection Diabetic foot infection Seen by Vascular surgery non palpable distal pulses as Per Vascular specialist Status post right lower extremity angiogram Severe right lower extremity peripheral arterial disease with large component of small vessel disease, Moderate range left lower extremity DARRIUS's with reduced TBI's proposal for R DATABASE DEVELOPMENT PROJECT MANAGER to Perimalleolar PT bypass with Cryo. the patient is asking for BKA and surgery recommended to think about it. Extremity Arterial Study 04/14/18 00:00 CONCLUSION: 1. Severe right lower extremity peripheral arterial disease with large component of small vessel disease. 2. Moderate range left lower extremity DARRIUS's with reduced TBI's consistent with component of small vessel disease. 3. Consider CT angiography for further evaluation. 5th toe cellulitis vs osteomyelitis -Meeting SIRS, Sepsis criteria -HR 97 WBC 11.9, ESR 102, C-reactive protein 10.70, creatinine 1.31 -Foot xray showed Stable examination with postsurgical changes not significantly changed -Previous cultures of the foot 04/08/18 -Enterococcus faecalis, pseudomonas aeruginosa -he was placed on ampicillin, Levaquin based on sensitivities -Vancomycin, Zosyn given in the ED. today he has grown Group D Enterococcus already removed Zosyn and continued on Vancomycin. DM 2, insulin-dependent uncontrolled started on Levemir and continue sliding scale to medium dose. -Keep blood sugar below 180 gr/dl Levemir 10 BID, medium sliding scale, scheduled 5 units pre meal. HTN Uncontrolled increased dosages of Amlodipine to 10 mg and continue clonidine HLD continue Home medicines. Acute kidney injury -Baseline creatinine 0.85- 1.1 -continue IV hydration improving to baseline. Obesity strongly recommended diet and exercise. DVT prop SCD Heparin Code Status: Full code. Discussed Condition With: patient and nurse. Discharge Planning: once cleared by specialists.
[2018-04-15] MEDS: Insulin Detemir Inj 1,000 UNIT/10 ML Vial SQ SCH (23:17)
[2018-04-16] MEDS: Sod Chloride 0.9% Inj 1,000 ML IV.CONT SCH ×3 (01:04→21:23)
[2018-04-16] MEDS: Insulin NovoLOG Aspart Correctional Sugar Inj SQ SCH ×4 (01:05→18:16)
[2018-04-16] MEDS: Piperacil/Tazo 3.375 GM Premix 50 ML IV.SIG SCH ×3 (06:33→21:23)
[2018-04-16] MEDS: amLODIPine 10 MG Tablet PO SCH (08:28)
[2018-04-16] MEDS: Gabapentin 300 MG Capsule PO SCH ×3 (08:28→17:05)
[2018-04-16] MEDS: Heparin - SQ 10,000 UNITS/ML Vial SQ SCH ×2 (08:28→21:22)
[2018-04-16] MEDS: Insulin Detemir Inj 1,000 UNIT/10 ML Vial SQ SCH ×2 (08:29→21:22)
[2018-04-16] MEDS ORDERED: Glycerin Adult 2 GM Supp RECTAL PRN (08:38)
--- NOTE | 2018-04-16 09:58 | P.PN ---
Subjective Interval history: This is a pleasant 43 y/o male with DM II, diabetic Neuropathy, Hypertension, Hyperlipidemia, Status post right lower extremity bypass graft Dr. Cullen, right fourth toe amputation by Dr. Gates who came into the hospital for evaluation of worsening right foot diabetic infection. Seen by Vascular surgery non palpable distal pulses as per Vascular, scheduled for diagnostic Right lower extremity angiogram 04/15/18, NPO at midnight, Hemoglobin A1C, DARRIUS's ordered. 04/15: Stable in his bedroom status post right lower extremity angiogram Severe right lower extremity peripheral arterial disease with large component of small vessel disease, Moderate range left lower extremity DARRIUS's with reduced TBI's proposal for R TRANSPORTATION E[employer]ICS TE[employer]ER to Perimalleolar PT bypass with Cryo. the patient is asking for BKA and surgery recommended to think about it, I talk to the patient while he was eating his Dinner, he still has not came to a decision will follow in am tomorrow 04/16: Constipation started on Laxatives. discussed with patient and his relatives in the room, no complaint, no nausea and vomit, decided for Amputation I will leave the discussion with patient to Vascular specialist. Physical Exam Vital signs: Vital Signs 04/15/18 10:50 04/15/18 16:00 04/15/18 17:12 Temperature 98.3 F Pulse Rate 92 H Respiratory Rate 20 Blood Pressure 185/93 H Pulse Oximetry 98 96 98 04/15/18 20:00 04/16/18 00:00 04/16/18 04:00 Temperature 98.1 F 98.5 F 98.3 F Pulse Rate 91 H 87 87 Respiratory Rate 17 16 17 Blood Pressure 169/79 H 143/88 H 171/81 H Pulse Oximetry 98 98 98 04/16/18 08:00 Temperature 98.0 F Pulse Rate 87 Respiratory Rate 17 Blood Pressure 178/88 H Pulse Oximetry 98 Intake & Output 04/15/18 04/16/18 04/16/18 18:59 06:59 18:59 Intake Total 1362.50 / 1362.50 2112.5 / 2112.5 1050 / 1050 Balance 1362.50 / 1362.50 2112.5 / 2112.5 1050 / 1050 Weight 108.7 kg Intake: IV 1362.50 / 1362.50 1312.5 / 1312.5 1050 / 1050 NS Inj 1,000 ML @ 100 mls/hr IV 1000 / 1000 1000 / 1000 1000 / 1000 .CONT .Q10H [facility] Rx#:[id number] Zosyn 3.375 GM Premix 50 ML @ 100 / 100 50 / 50 50 / 50 100 mls/hr IV.SIG Q8H [facility] Rx#: [id number] Vancomycin Inj 1,250 MG In NS 262.50 / 262.50 262.5 / 262.5 Inj 250 ML @ 250 mls/hr IV.SIG Q12H [facility] Rx#:[id number] Oral 800 / 800 Other: # Voids 5 Narrative: GENERAL: Obese. well-developed patient, in no apparent distress. SKIN: Warm and dry. HEENT: Normocephalic. Pupils equal round and reactive. Nose without bleeding. Airway patent. NECK: Trachea midline. Supple. CARDIOVASCULAR: Regular rate and rhythm without murmurs, gallops, or rubs. RESPIRATORY: Diminished bases. No wheezes, rales, or rhonchi. GASTROINTESTINAL: Abdomen soft, non-tender, nondistended. Bowel Sounds normoactive x4. MUSCULOSKELETAL: Extremities without clubbing, Right foot dressed. and ankle. NEUROLOGICAL: Awake and alert. Results - Labs CBC & Chem 7: 04/14/18 05:45 04/16/18 02:49 Laboratory Results - last 24 hr 04/15/18 04/15/18 04/15/18 13:27 16:38 23:16 Creatinine Estimated GFR POC Glucose 224 H 242 H 192 H 04/16/18 04/16/18 02:49 06:26 Creatinine 1.29 Estimated GFR 74 L POC Glucose 196 H Microbiology 04/13/18 13:00 Wound - Foot Gram Stain - Final 04/13/18 13:00 Wound - Foot Wound Culture - Final Enterococcus faecalis 04/13/18 13:10 Blood - Peripheral Aerobic Blood Culture - Preliminary No growth in 2 days 04/13/18 13:10 Blood - Peripheral Anaerobic Blood Culture - Preliminary No growth in 2 days 04/13/18 12:51 Blood - Peripheral Aerobic Blood Culture - Preliminary No growth in 2 days 04/13/18 12:51 Blood - Peripheral Anaerobic Blood Culture - Preliminary No growth in 2 days - Imaging Impressions Extremity Arterial Study 04/14/18 00:00 CONCLUSION: 1. Severe right lower extremity peripheral arterial disease with large component of small vessel disease. 2. Moderate range left lower extremity DARRIUS's with reduced TBI's consistent with component of small vessel disease. 3. Consider CT angiography for further evaluation. - Procedures DATE OF OPERATION: 04/15/2018 PREOPERATIVE DIAGNOSES: 1. Right extremity tissue loss. 2. Peripheral vascular disease. POSTOPERATIVE DIAGNOSES: 1. Right extremity tissue loss. 2. Peripheral vascular disease. PROCEDURE PERFORMED: Aortogram with right extremity angiogram. ATTENDING SURGEON: Moe Cullen MD Extremity Arterial Study 04/14/18 00:00 CONCLUSION: 1. Severe right lower extremity peripheral arterial disease with large component of small vessel disease. 2. Moderate range left lower extremity DARRIUS's with reduced TBI's consistent with component of small vessel disease. 3. Consider CT angiography for further evaluation. Assessment and Plan - Plan Patient is a 43 year old AA male with past medical history of diabetes, diabetic neuropathy, HTN, HLD, status post right lower extremity bypass graft Dr. Cullen, right fourth toe amputation by Dr. Gates who came into the hospital for evaluation of worsening right foot diabetic infection. SIRS, Sepsis secondary to Right foot infection Diabetic foot infection Seen by Vascular surgery non palpable distal pulses as Per Vascular specialist Status post right lower extremity angiogram Severe right lower extremity peripheral arterial disease with large component of small vessel disease, Moderate range left lower extremity DARRIUS's with reduced TBI's proposal for R [employer]SP[employer]ER to Perimalleolar PT bypass with Cryo. the patient is asking for BKA and surgery recommended to think about it. the patient states he wants to proceed with Amputation. Extremity Arterial Study 04/14/18 00:00 CONCLUSION: 1. Severe right lower extremity peripheral arterial disease with large component of small vessel disease. 2. Moderate range left lower extremity DARRIUS's with reduced TBI's consistent with component of small vessel disease. 3. Consider CT angiography for further evaluation. 5th toe cellulitis vs osteomyelitis -Meeting SIRS, Sepsis criteria -HR 97 WBC 11.9, ESR 102, C-reactive protein 10.70, creatinine 1.31 -Foot xray showed Stable examination with postsurgical changes not significantly changed -Previous cultures of the foot 04/08/18 -Enterococcus faecalis, pseudomonas aeruginosa -he was placed on ampicillin, Levaquin based on sensitivities -Vancomycin, Zosyn given in the ED. today he has grown Group D Enterococcus already removed Zosyn and continued on Vancomycin. DM 2, insulin-dependent uncontrolled started on Levemir and continue sliding scale to medium dose. -Keep blood sugar below 180 gr/dl Levemir 10 BID, medium sliding scale, scheduled 5 units pre meal. Uncontrolled today Increased Levemir to 15 units BID and following. HTN Uncontrolled increased dosages of Amlodipine to 10 mg, add HCTZ 12.5 mg daily, Lisinopril 20 mg BID and following on Clonidine by mouth. HLD continue Home medicines. Acute kidney injury -Baseline creatinine 0.85- 1.1 -continue IV hydration improving to baseline. Obesity strongly recommended diet and exercise. DVT prop SCD Heparin Code Status: Full Code. Discussed Condition With: Patient and nurse. Discharge Planning: once cleared by specialists.
[2018-04-16] MEDS: Lisinopril 20 MG Tablet PO SCH ×2 (10:31→21:23)
[2018-04-16] MEDS ORDERED: Pharmacy Ordered Lab Info OTHER ONE (10:45)
[2018-04-16] MEDS: Vancomycin Inj 1,250 MG in Sodium Chlor 0.9% Inj 250 ML IV.SIG SCH (14:02)
[2018-04-17] MEDS: Insulin NovoLOG Aspart Correctional Sugar Inj SQ SCH ×4 (02:19→18:00)
[2018-04-17] MEDS: Vancomycin Inj 1,250 MG in Sodium Chlor 0.9% Inj 250 ML IV.SIG SCH ×2 (02:20→19:01)
[2018-04-17] MEDS: Sod Chloride 0.9% Inj 1,000 ML IV.CONT SCH ×2 (06:35→17:43)
[2018-04-17] MEDS: Piperacil/Tazo 3.375 GM Premix 50 ML IV.SIG SCH ×3 (06:35→20:17)
[2018-04-17 07:49] LABS: Glomerular Filtration Rate Greater Than 89 mL/min (>89)
[2018-04-17] MEDS: Gabapentin 300 MG Capsule PO SCH ×3 (09:08→17:48)
[2018-04-17] MEDS: amLODIPine 10 MG Tablet PO SCH (09:08)
[2018-04-17] MEDS: Heparin - SQ 10,000 UNITS/ML Vial SQ SCH ×2 (09:09→20:17)
[2018-04-17] MEDS: Insulin Detemir Inj 1,000 UNIT/10 ML Vial SQ SCH ×2 (09:09→20:18)
[2018-04-17] MEDS: Lisinopril 20 MG Tablet PO SCH ×3 (09:10→20:18)
--- NOTE | 2018-04-17 12:30 | P.PN ---
Subjective Interval history: This is a pleasant 43 y/o male with DM II, diabetic Neuropathy, Hypertension, Hyperlipidemia, Status post right lower extremity bypass graft Dr. Cullen, right fourth toe amputation by Dr. Gates who came into the hospital for evaluation of worsening right foot diabetic infection. Seen by Vascular surgery non palpable distal pulses as per Vascular, scheduled for diagnostic Right lower extremity angiogram 04/15/18, NPO at midnight, Hemoglobin A1C, DARRIUS's ordered. 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 the patient is asking for BKA and surgery recommended to think about it, I talk to the patient while he was eating his Dinner, he still has not came to a decision will follow in am tomorrow 04/16: Constipation started on Laxatives. discussed with patient and his relatives in the room, no complaint, decided for Amputation I will leave the discussion with patient to Vascular specialist. 04/17: Seen in his bedroom, will discuss with Vascular technology sales specialist about his case, at this time, no new issues, no nausea, vomit or diarrhea. Physical Exam Vital signs: Vital Signs 04/16/18 16:00 04/16/18 18:36 04/16/18 20:00 Temperature 97.8 F 98.3 F Pulse Rate 83 88 Respiratory Rate 17 20 Blood Pressure 143/66 H 189/76 H Pulse Oximetry 99 99 99 04/16/18 20:34 04/17/18 00:00 04/17/18 08:00 Temperature 98.4 F 98.6 F Pulse Rate 84 92 H Respiratory Rate 20 19 Blood Pressure 159/96 H 171/82 H Pulse Oximetry 98 99 98 04/17/18 12:00 Temperature 98.1 F Pulse Rate 86 Respiratory Rate 19 Blood Pressure 175/84 H Pulse Oximetry 100 Intake & Output 04/16/18 04/17/18 04/17/18 18:59 06:59 18:59 Intake Total 3312.5 / 3312.5 Balance 3312.5 / 3312.5 Intake: IV 2312.5 / 2312.5 NS Inj 1,000 ML @ 100 mls/hr IV 1999 1999 .CONT .Q10H [facility] Rx#:[id number] Zosyn 3.375 GM Premix 50 ML @ 50 / 50 100 mls/hr IV.SIG Q8H [facility] Rx#: [id number] Vancomycin Inj 1,250 MG In NS 262.5 / 262.5 Inj 250 ML @ 250 mls/hr IV.SIG Q12H [facility] Rx#:[id number] Oral 1000 / 1000 Other: # Voids 3 # Bowel Movements 1 Narrative: GENERAL: Obese. well-developed patient, in no apparent distress. SKIN: Warm and dry. HEENT: Normocephalic. Pupils equal round and reactive. Nose without bleeding. Airway patent. NECK: Trachea midline. Supple. CARDIOVASCULAR: Regular rate and rhythm without murmurs, gallops, or rubs. RESPIRATORY: Diminished bases. No wheezes, rales, or rhonchi. GASTROINTESTINAL: Abdomen soft, non-tender, nondistended. Bowel Sounds normoactive x4. MUSCULOSKELETAL: Extremities without clubbing, Right foot dressed. and ankle. NEUROLOGICAL: Awake and alert. Results - Labs CBC & Chem 7: 04/14/18 05:45 04/17/18 05:45 Laboratory Results - last 24 hr 04/16/18 04/16/18 04/17/18 18:11 21:13 05:45 Creatinine 1.09 Estimated GFR Greater than 89 POC Glucose 218 H 167 H Microbiology 04/13/18 13:10 Blood - Peripheral Aerobic Blood Culture - Preliminary No growth in 4 days 04/13/18 13:10 Blood - Peripheral Anaerobic Blood Culture - Preliminary No growth in 4 days 04/13/18 12:51 Blood - Peripheral Aerobic Blood Culture - Preliminary No growth in 4 days 04/13/18 12:51 Blood - Peripheral Anaerobic Blood Culture - Preliminary No growth in 4 days - Procedures DATE OF OPERATION: 04/15/2018 PREOPERATIVE DIAGNOSES: 1. Right extremity tissue loss. 2. Peripheral vascular disease. POSTOPERATIVE DIAGNOSES: 1. Right extremity tissue loss. 2. Peripheral vascular disease. PROCEDURE PERFORMED: Aortogram with right extremity angiogram. ATTENDING SURGEON: Moe Cullen MD Extremity Arterial Study 04/14/18 00:00 CONCLUSION: 1. Severe right lower extremity peripheral arterial disease with large component of small vessel disease. 2. Moderate range left lower extremity DARRIUS's with reduced TBI's consistent with component of small vessel disease. 3. Consider CT angiography for further evaluation. Assessment and Plan - Plan Patient is a 43 year old AA male with past medical history of diabetes, diabetic neuropathy, HTN, HLD, status post right lower extremity bypass graft Dr. Cullen, right fourth toe amputation by Dr. Gates who came into the hospital for evaluation of worsening right foot diabetic infection. 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 the patient is asking for BKA and surgery recommended to think about it. the patient states he wants to proceed with Amputation. Extremity Arterial Study 04/14/18 00:00 CONCLUSION: 1. Severe right lower extremity peripheral arterial disease with large component of small vessel disease. 2. Moderate range left lower extremity DARRIUS's with reduced TBI's consistent with component of small vessel disease. 3. Consider CT angiography for further evaluation. 5th toe cellulitis vs osteomyelitis -Meeting SIRS, Sepsis criteria -HR 97 WBC 11.9, ESR 102, C-reactive protein 10.70, creatinine 1.31 -Foot xray showed Stable examination with postsurgical changes not significantly changed -Previous cultures of the foot 04/08/18 -Enterococcus faecalis, pseudomonas aeruginosa -he was placed on ampicillin, Levaquin based on sensitivities -Vancomycin, Zosyn given in the ED. today he has grown Group D Enterococcus already removed Zosyn and continued on Vancomycin. DM 2, insulin-dependent uncontrolled started on Levemir and continue sliding scale to medium dose. -Keep blood sugar below 180 gr/dl Levemir 10 BID, medium sliding scale, scheduled 5 units pre meal. Still Uncontrolled increased Levemir to 18 units every 12 hours. HTN Uncontrolled increased dosages of Amlodipine to 10 mg, add HCTZ 12.5 mg daily, Lisinopril 40 mg BID and on Clonidine by mouth. HLD continue Home medicines. Acute kidney injury -Baseline creatinine 0.85- 1.1 -continue IV hydration improving to baseline. Obesity strongly recommended diet and exercise. DVT prop SCD Heparin Code Status: Full code. Discussed Condition With: Patient and nurse Miss Driscoll Discharge Planning: once cleared by specialists.
--- NOTE | 2018-04-17 13:31 | P.PNPOD ---
Subjective Interval history: Right foot infection Review of Systems All other systems reviewed negative except as stated in HPI Physical Exam Vital signs: Vital Signs 04/16/18 16:00 04/16/18 18:36 04/16/18 20:00 Temperature 97.8 F 98.3 F Pulse Rate 83 88 Respiratory Rate 17 20 Blood Pressure 143/66 H 189/76 H Pulse Oximetry 99 99 99 04/16/18 20:34 04/17/18 00:00 04/17/18 08:00 Temperature 98.4 F 98.6 F Pulse Rate 84 92 H Respiratory Rate 20 19 Blood Pressure 159/96 H 171/82 H Pulse Oximetry 98 99 98 04/17/18 12:00 Temperature 98.1 F Pulse Rate 86 Respiratory Rate 19 Blood Pressure 175/84 H Pulse Oximetry 100 Intake & Output 04/16/18 04/17/18 04/17/18 18:59 06:59 18:59 Intake Total 3312.5 / 3312.5 Balance 3312.5 / 3312.5 Intake: IV 2312.5 / 2312.5 NS Inj 1,000 ML @ 100 mls/hr IV 1999 / 1999 .CONT .Q10H [facility] Rx#:[id number] Zosyn 3.375 GM Premix 50 ML @ 50 / 50 100 mls/hr IV.SIG Q8H [facility] Rx#: [id number] Vancomycin Inj 1,250 MG In NS 262.5 / 262.5 Inj 250 ML @ 250 mls/hr IV.SIG Q12H [facility] Rx#:[id number] Oral 1000 / 1000 Other: # Voids 3 # Bowel Movements 1 Narrative: Unchanged since initial consultation Medications and Allergies Active Medications: Active Medications Hydrocodone Bitart/Acetaminophen ([place] 5/325) 1 tab PO Q4H PRN PRN Reason: PAIN SCALE 3 TO 5 Hydrocodone Bitart/Acetaminophen ([place] 10/325) 1 tab PO Q4H PRN PRN Reason: PAIN SCALE 6 TO 10 Last Admin: 04/17/18 09:08 Dose: 1 tab Amlodipine Besylate (Norvasc) 10 mg PO DAILY [facility] Last Admin: 04/17/18 09:08 Dose: 10 mg Aspirin (Ecotrin) 81 mg PO DAILY [facility] Last Admin: 04/17/18 09:08 Dose: 81 mg Atorvastatin Calcium (Lipitor) 40 mg PO DAILY [facility] Last Admin: 04/17/18 09:08 Dose: 40 mg Clonidine HCl (Catapres) 0.1 mg PO Q6H PRN PRN Reason: SBP >180, DBP >100, HR >60 Last Admin: 04/16/18 11:18 Dose: 0.1 mg Dextrose (D50w Vial) 50 ml IV.PUSH UNSCH PRN PRN Reason: PER HYPOGLYCEMIA PROTOCOL Gabapentin (Neurontin) 300 mg PO TID [facility] Last Admin: 04/17/18 09:08 Dose: 300 mg Glucagon (Glucagon Inj) 1 mg OTHER PRN PRN PRN Reason: for Hypoglycemia Protocol Glycerin (Glycerin Adult Supp) 2 gm RECTAL DAILY PRN PRN Reason: CONSTIPATION Heparin Sodium (Porcine) (Heparin Inj) 5,000 units SQ Q12HR [facility] Last Admin: 04/17/18 09:09 Dose: 5,000 units Hydrochlorothiazide (Microzide) 12.5 mg PO DAILY [facility] Last Admin: 04/17/18 09:08 Dose: 12.5 mg Piperacillin/Tazobactam/Dextrose (Zosyn 3.375 Gm Premix) 50 mls @ 100 mls/hr IV.SIG Q8H [facility] Last Admin: 04/17/18 06:35 Dose: Not Given Sodium Chloride (Ns Inj) 1,000 mls @ 100 mls/hr IV.CONT .Q10H [facility] Last Admin: 04/17/18 06:35 Dose: Not Given Vancomycin HCl 1,250 mg/ (Sodium Chloride) 262.5 mls @ 262.5 mls/hr IV.SIG Q12H [facility] Last Admin: 04/17/18 02:20 Dose: Not Given Insulin Aspart (Novolog Insulin Correctional Sugar Inj) 0 unit SQ 07,13,19,01 [facility]; Protocol Last Admin: 04/17/18 06:43 Dose: Not Given Insulin Detemir (Levemir Inj) 18 unit SQ BID [facility]; Protocol Lactulose (Lactulose Liq) 30 ml PO DAILY PRN PRN Reason: CONSTIPATION Last Admin: 04/16/18 10:31 Dose: 30 ml Lisinopril (Prinivil) 40 mg PO BID [facility] Miscellaneous Information ([facility] Ordered Lab Info) 0 each OTHER ONCE ONE Stop: 04/17/18 13:46 Morphine Sulfate (Morphine Inj) 4 mg IV.PUSH Q3H PRN PRN Reason: BREAKTHROUGH PAIN Naloxone HCl (Narcan Inj) 0.4 mg IV.PUSH UNSCH PRN PRN Reason: SEE LABEL COMMENTS Ondansetron HCl (Zofran Inj) 4 mg IV.PUSH Q6H PRN PRN Reason: Nausea, vomiting Pharmacy Profile Note (Vancomycin Consult Pharmacy) 1 each OTHER UNSCH PRN PRN Reason: Pharmacy to dose Sodium Chloride (Ns Flush) 2 ml IV.FLUSH PRN PRN PRN Reason: FLUSH AFTER USING IV ACCESS Sodium Chloride (Ns Flush) 2 ml IV.FLUSH BID [facility] Last Admin: 04/17/18 09:09 Dose: 2 ml Allergies Allergy/AdvReac Type Severity Reaction Status Date / Time No Known Allergies Allergy Verified 04/13/18 12:35 Home Medications Medication Instructions Recorded Confirmed Type amlodipine 5 mg PO DAILY 02/21/18 04/13/18 History amoxicillin 500 mg PO Q8HR 02/21/18 04/13/18 History aspirin [Aspirin Low Dose] 81 mg PO DAILY 02/21/18 04/13/18 History atorvastatin 40 mg PO DAILY 02/21/18 04/13/18 History clopidogrel [Plavix] 75 mg PO DAILY 02/21/18 04/13/18 History gabapentin [Neurontin] 300 mg PO TID 02/21/18 04/13/18 History insulin regular human 40 unit SUB-Q BID 02/21/18 04/13/18 History lisinopril 10 mg PO DAILY 02/21/18 04/13/18 History oxycodone 5 mg PO Q4-6H 02/21/18 04/13/18 History levofloxacin [Levaquin] 750 mg PO DAILY 04/13/18 04/13/18 History Results - Labs CBC & Chem 7: 04/14/18 05:45 04/17/18 05:45 Laboratory Results - last 24 hr 04/16/18 04/16/18 04/17/18 18:11 21:13 05:45 Creatinine 1.09 Estimated GFR Greater than 89 POC Glucose 218 H 167 H Microbiology 04/13/18 13:10 Blood - Peripheral Aerobic Blood Culture - Preliminary No growth in 4 days 04/13/18 13:10 Blood - Peripheral Anaerobic Blood Culture - Preliminary No growth in 4 days 04/13/18 12:51 Blood - Peripheral Aerobic Blood Culture - Preliminary No growth in 4 days 04/13/18 12:51 Blood - Peripheral Anaerobic Blood Culture - Preliminary No growth in 4 days - Procedures DATE OF OPERATION: 04/15/2018 PREOPERATIVE DIAGNOSES: 1. Right extremity tissue loss. 2. Peripheral vascular disease. POSTOPERATIVE DIAGNOSES: 1. Right extremity tissue loss. 2. Peripheral vascular disease. PROCEDURE PERFORMED: Aortogram with right extremity angiogram. ATTENDING SURGEON: Moe Cullen MD Extremity Arterial Study 04/14/18 00:00 CONCLUSION: 1. Severe right lower extremity peripheral arterial disease with large component of small vessel disease. 2. Moderate range left lower extremity DARRIUS's with reduced TBI's consistent with component of small vessel disease. 3. Consider CT angiography for further evaluation. MRI ordered R foot Assessment and Plan - Assessment (1) Gangrene of right foot Code(s): I96 - Gangrene, not elsewhere classified Status: Acute (2) Diabetic foot infection Code(s): E11.628 - Type 2 diabetes mellitus with other skin complications; L08.9 - Local infection of the skin and subcutaneous tissue, unspecified Status: Acute - Plan Plan is to undergo bypass with Dr Cullen early next week. Will plan to follow later in the week with transmetatarsal amputation right foot and possible percutaneous tendoachilles lengthening, possibly on . MRI ordered for Right foot for preoperative planning
[2018-04-17] MEDS ORDERED: Pharmacy Ordered Lab Info OTHER ONE (13:45)
[2018-04-17] MEDS ORDERED: Gadobutrol PF 10 MMOL/10 ML Vial (for RAD) IV.SIG ONE (15:06)
--- NOTE | 2018-04-17 15:29 | MR ---
EXAM DATE: 04/17/2018 3:17 PM EDT AGE/SEX: 43 years / Male INDICATIONS: . Right foot infection. Wound dorsal surface at previous surgical site 4th digit. CLINICAL DATA: This is the patient's initial encounter. Patient reports that signs and symptoms have been present for 4 - 6 days and indicates a pain score of 2/10. MEDICAL/SURGICAL HISTORY: Diabetes mellitus type II. Hypertension. . Right foot digit amputati on. Left ankle arthroplasty. COMPARISON: [facility] [place], MRI FOOT RIGHT W & W/O CONTRAST, 01/06/2018. [facility] [place], FOOT COMPLETE RIGHT 3V, 04/13. . TECHNIQUE: Multiplanar, multisequence MRI examination was performed without contrast and after th e intravenous administration of 10cc ml Gadavist (gadobutrol) single exam dose. FINDINGS: Examination quality is degraded by motion artifact. There has been prior amputation of the fourth digit and distal fourth metatarsal. Soft tissue defect versus open wound is present along the dorsal aspect of the foot for facial to the distal third and p rior area of fourth metatarsal. There is abnormal bone marrow edema within the distal two thirds of t he fifth metatarsal with associated mild decreased T1 signal in the fifth metatarsal head and enhance ment in the fifth metatarsal head. There is bone marrow edema in the proximal aspect of the proximal phalanx of the fifth digit but T1 signal is not decreased but there is questionable enhancement. Incr eased T2, decreased T1, and enhancement is present in the third metacarpal head and proximal phalanx of the third digit. The remaining bones appear to demonstrate normal bone marrow signal. There is dif fuse subcutaneous edema around the foot with intramuscular edema. CONCLUSION: 1. There is bone marrow edema with abnormal enhancement suspicious for osteomyelitis in the fifth me tacarpal head, third metacarpal head, and proximal phalanx of the third digit. 2. Nonspecific marrow edema is present in the proximal phalanx of the fifth digit. 3. Diffuse subcutaneous edema with a wound along the dorsal aspect of the foot superficial to the di stal third metacarpal and expected location of the distal fourth metacarpal. Electronically signed by: Gibson Clay MD 04/17/2018 3:28 PM EDT
[2018-04-17] MEDS: Morphine Inj 4 MG/ML Vial IV.PUSH PRN (20:24)
[2018-04-18] MEDS: Insulin NovoLOG Aspart Correctional Sugar Inj SQ SCH ×4 (00:29→18:11)
[2018-04-18] MEDS: Sod Chloride 0.9% Inj 1,000 ML IV.CONT SCH ×3 (01:03→21:00)
[2018-04-18] MEDS: Piperacil/Tazo 3.375 GM Premix 50 ML IV.SIG SCH ×3 (05:28→18:11)
[2018-04-18] MEDS: Lisinopril 20 MG Tablet PO SCH ×2 (08:10→20:22)
[2018-04-18] MEDS: Vancomycin Inj 1,250 MG in Sodium Chlor 0.9% Inj 250 ML IV.SIG SCH ×2 (08:10→20:19)
[2018-04-18] MEDS: Gabapentin 300 MG Capsule PO SCH ×3 (08:11→18:11)
[2018-04-18] MEDS: Heparin - SQ 10,000 UNITS/ML Vial SQ SCH ×2 (08:11→20:21)
[2018-04-18] MEDS: Insulin Detemir Inj 1,000 UNIT/10 ML Vial SQ SCH ×2 (08:11→20:21)
[2018-04-18] MEDS: amLODIPine 10 MG Tablet PO SCH (08:11)
--- NOTE | 2018-04-18 08:22 | P.PNVS ---
Subjective Subjective/Hospital Course: Pt s/p R LE angiogram; resting comfortably, no problems. He said he was ready for us to "take the foot" but when I pressed him, he meant a TMA not a BKA. I explained again the options: re-do distal bypass to PT near the ankle with cryo OR a BKA. He seems to understand and will continue to discuss with his family. Objective Vital Signs / I&O: Vital Signs 04/17/18 12:00 04/17/18 15:56 04/17/18 20:00 Temperature 98.1 F 98.7 F 98.5 F Pulse Rate 86 89 87 Respiratory Rate 19 19 20 Blood Pressure 175/84 H 175/86 H 173/82 H Pulse Oximetry 100 99 98 04/18/18 00:00 Temperature 97.9 F Pulse Rate 90 Respiratory Rate 20 Blood Pressure 174/97 H Pulse Oximetry 99 Intake & Output 04/17/18 04/18/18 04/18/18 18:59 06:59 18:59 Intake Total 1850 / 1850 100 / 100 Output Total 1200 / 1200 Balance 650 / 650 100 / 100 Weight 118.4 kg Intake: IV 1050 / 1050 100 / 100 NS Inj 1,000 ML @ 100 mls/hr IV 1000 / 1000 .CONT .Q10H [facility] Rx#:[id number] Zosyn 3.375 GM Premix 50 ML @ 50 / 50 100 / 100 100 mls/hr IV.SIG Q8H [facility] Rx#: [id number] Oral 800 / 800 Output: Urine 1200 / 1200 Physical Exam: R medial calf incision indurated from prior surgery Laboratory Results - last 24 hr 04/17/18 04/17/18 04/17/18 13:58 16:25 17:50 POC Glucose 211 H 198 H Vancomycin Trough Cancelled Microbiology 04/13/18 13:10 Aerobic Blood Culture - Preliminary Blood - Peripheral No growth in 4 days Anaerobic Blood Culture - Preliminary No growth in 4 days 04/13/18 12:51 Aerobic Blood Culture - Preliminary Blood - Peripheral No growth in 4 days Anaerobic Blood Culture - Preliminary No growth in 4 days Impressions Foot MRI 04/17/18 00:00 CONCLUSION: 1. There is bone marrow edema with abnormal enhancement suspicious for osteomyelitis in the fifth metacarpal head, third metacarpal head, and proximal phalanx of the third digit. 2. Nonspecific marrow edema is present in the proximal phalanx of the fifth digit. 3. Diffuse subcutaneous edema with a wound along the dorsal aspect of the foot superficial to the distal third metacarpal and expected location of the distal fourth metacarpal. Assessment and Plan - Plan s/p R LE angiogram I discussed with the patient the options for revascularization vs primary BKA again. He has no autogenous conduit suitable and his option would be a R PRODUCT ENGINEERING MANAGER to perimalleolar PT bypass with cryo. His target looks reasonable on angiogram but the usp patency of such a bypass is limited. The other option is a BKA. I will await the patient's decision.
--- NOTE | 2018-04-18 09:35 | P.PNPOD ---
Review of Systems All other systems reviewed negative except as stated in HPI Physical Exam Vital signs: Vital Signs 04/17/18 12:00 04/17/18 15:56 04/17/18 20:00 Temperature 98.1 F 98.7 F 98.5 F Pulse Rate 86 89 87 Respiratory Rate 19 19 20 Blood Pressure 175/84 H 175/86 H 173/82 H Pulse Oximetry 100 99 98 04/18/18 00:00 04/18/18 08:00 Temperature 97.9 F 97.8 F Pulse Rate 90 87 Respiratory Rate 20 19 Blood Pressure 174/97 H 164/79 H Pulse Oximetry 99 100 Intake & Output 04/17/18 04/18/18 04/18/18 18:59 06:59 18:59 Intake Total 1850 / 1850 100 / 100 1262.5 / 1262.5 Output Total 1200 / 1200 Balance 650 / 650 100 / 100 1262.5 / 1262.5 Weight 118.4 kg Intake: IV 1050 / 1050 100 / 100 1262.5 / 1262.5 NS Inj 1,000 ML @ 100 mls/hr IV 1000 / 1000 1000 / 1000 .CONT .Q10H REPLACED BY [facility] Rx#:[id number] Zosyn 3.375 GM Premix 50 ML @ 50 / 50 100 / 100 100 mls/hr IV.SIG Q8H REPLACED BY [facility] Rx#: [id number] Vancomycin Inj 1,250 MG In NS 262.5 / 262.5 Inj 250 ML @ 262.5 mls/hr IV. SIG Q12H REPLACED BY [facility] Rx#:[id number] Oral 800 / 800 Output: Urine 1200 / 1200 Other: Date of Last Bowel Movement 04/16/18 Medications and Allergies Active Medications: Active Medications Hydrocodone Bitart/Acetaminophen ([place] 5/325) 1 tab PO Q4H PRN PRN Reason: PAIN SCALE 3 TO 5 Hydrocodone Bitart/Acetaminophen ([place] 10/325) 1 tab PO Q4H PRN PRN Reason: PAIN SCALE 6 TO 10 Last Admin: 04/18/18 00:27 Dose: 1 tab Amlodipine Besylate (Norvasc) 10 mg PO DAILY REPLACED BY [facility] Last Admin: 04/18/18 08:11 Dose: 10 mg Aspirin (Ecotrin) 81 mg PO DAILY REPLACED BY [facility] Last Admin: 04/18/18 08:10 Dose: 81 mg Atorvastatin Calcium (Lipitor) 40 mg PO DAILY REPLACED BY [facility] Last Admin: 04/18/18 08:11 Dose: 40 mg Clonidine HCl (Catapres) 0.1 mg PO Q6H PRN PRN Reason: SBP >180, DBP >100, HR >60 Last Admin: 04/16/18 11:18 Dose: 0.1 mg Dextrose (D50w Vial) 50 ml IV.PUSH UNSCH PRN PRN Reason: PER HYPOGLYCEMIA PROTOCOL Gabapentin (Neurontin) 300 mg PO TID REPLACED BY [facility] Last Admin: 04/18/18 08:11 Dose: 300 mg Glucagon (Glucagon Inj) 1 mg OTHER PRN PRN PRN Reason: for Hypoglycemia Protocol Glycerin (Glycerin Adult Supp) 2 gm RECTAL DAILY PRN PRN Reason: CONSTIPATION Heparin Sodium (Porcine) (Heparin Inj) 5,000 units SQ Q12HR REPLACED BY [facility] Last Admin: 04/18/18 08:11 Dose: 5,000 units Hydrochlorothiazide (Microzide) 12.5 mg PO DAILY REPLACED BY [facility] Last Admin: 04/18/18 08:10 Dose: 12.5 mg Piperacillin/Tazobactam/Dextrose (Zosyn 3.375 Gm Premix) 50 mls @ 100 mls/hr IV.SIG Q8H REPLACED BY [facility] Last Infusion: 04/18/18 05:58 Dose: Infused Sodium Chloride (Ns Inj) 1,000 mls @ 100 mls/hr IV.CONT .Q10H REPLACED BY [facility] Last Infusion: 04/18/18 09:11 Dose: Infused Vancomycin HCl 1,250 mg/ (Sodium Chloride) 262.5 mls @ 262.5 mls/hr IV.SIG Q12H REPLACED BY [facility] Last Infusion: 04/18/18 09:11 Dose: Infused Insulin Aspart (Novolog Insulin Correctional Sugar Inj) 0 unit SQ 07,13,19,01 REPLACED BY [facility]; Protocol Last Admin: 04/18/18 06:37 Dose: Not Given Insulin Detemir (Levemir Inj) 18 unit SQ BID REPLACED BY [facility]; Protocol Last Admin: 04/18/18 08:11 Dose: 18 unit Lactulose (Lactulose Liq) 30 ml PO DAILY PRN PRN Reason: CONSTIPATION Last Admin: 04/18/18 00:27 Dose: 30 ml Lisinopril (Prinivil) 40 mg PO BID REPLACED BY [facility] Last Admin: 04/18/18 08:10 Dose: 40 mg Morphine Sulfate (Morphine Inj) 4 mg IV.PUSH Q3H PRN PRN Reason: BREAKTHROUGH PAIN Last Admin: 04/17/18 20:24 Dose: 4 mg Naloxone HCl (Narcan Inj) 0.4 mg IV.PUSH UNSCH PRN PRN Reason: SEE LABEL COMMENTS Ondansetron HCl (Zofran Inj) 4 mg IV.PUSH Q6H PRN PRN Reason: Nausea, vomiting Pharmacy Profile Note (Vancomycin Consult Pharmacy) 1 each OTHER UNSCH PRN PRN Reason: Pharmacy to dose Sodium Chloride (Ns Flush) 2 ml IV.FLUSH PRN PRN PRN Reason: FLUSH AFTER USING IV ACCESS Sodium Chloride (Ns Flush) 2 ml IV.FLUSH BID [facility] Last Admin: 04/18/18 08:12 Dose: Not Given Allergies Allergy/AdvReac Type Severity Reaction Status Date / Time No Known Allergies Allergy Verified 04/13/18 12:35 Home Medications Medication Instructions Recorded Confirmed Type amlodipine 5 mg PO DAILY 02/21/18 04/13/18 History amoxicillin 500 mg PO Q8HR 02/21/18 04/13/18 History aspirin [Aspirin Low Dose] 81 mg PO DAILY 02/21/18 04/13/18 History atorvastatin 40 mg PO DAILY 02/21/18 04/13/18 History clopidogrel [Plavix] 75 mg PO DAILY 02/21/18 04/13/18 History gabapentin [Neurontin] 300 mg PO TID 02/21/18 04/13/18 History insulin regular human 40 unit SUB-Q BID 02/21/18 04/13/18 History lisinopril 10 mg PO DAILY 02/21/18 04/13/18 History oxycodone 5 mg PO Q4-6H 02/21/18 04/13/18 History levofloxacin [Levaquin] 750 mg PO DAILY 04/13/18 04/13/18 History Results - Labs CBC & Chem 7: 04/14/18 05:45 04/17/18 05:45 Laboratory Results - last 24 hr 04/17/18 04/17/18 04/17/18 13:58 16:25 17:50 POC Glucose 211 H 198 H Vancomycin Trough Cancelled Microbiology 04/13/18 13:10 Blood - Peripheral Aerobic Blood Culture - Preliminary No growth in 4 days 04/13/18 13:10 Blood - Peripheral Anaerobic Blood Culture - Preliminary No growth in 4 days 04/13/18 12:51 Blood - Peripheral Aerobic Blood Culture - Preliminary No growth in 4 days 04/13/18 12:51 Blood - Peripheral Anaerobic Blood Culture - Preliminary No growth in 4 days - Imaging Impressions Foot MRI 04/17/18 00:00 CONCLUSION: 1. There is bone marrow edema with abnormal enhancement suspicious for osteomyelitis in the fifth metacarpal head, third metacarpal head, and proximal phalanx of the third digit. 2. Nonspecific marrow edema is present in the proximal phalanx of the fifth digit. 3. Diffuse subcutaneous edema with a wound along the dorsal aspect of the foot superficial to the distal third metacarpal and expected location of the distal fourth metacarpal. - Procedures DATE OF OPERATION: 04/15/2018 PREOPERATIVE DIAGNOSES: 1. Right extremity tissue loss. 2. Peripheral vascular disease. POSTOPERATIVE DIAGNOSES: 1. Right extremity tissue loss. 2. Peripheral vascular disease. PROCEDURE PERFORMED: Aortogram with right extremity angiogram. ATTENDING SURGEON: Moe Cullen MD Extremity Arterial Study 04/14/18 00:00 CONCLUSION: 1. Severe right lower extremity peripheral arterial disease with large component of small vessel disease. 2. Moderate range left lower extremity DARRIUS's with reduced TBI's consistent with component of small vessel disease. 3. Consider CT angiography for further evaluation. MRI ordered R foot Assessment and Plan - Assessment (1) Gangrene of right foot Code(s): I96 - Gangrene, not elsewhere classified Status: Acute (2) Diabetic foot infection Code(s): E11.628 - Type 2 diabetes mellitus with other skin complications; L08.9 - Local infection of the skin and subcutaneous tissue, unspecified Status: Acute - Plan Plan is to undergo bypass with Dr Cullen early next week. Will plan to follow later in the week with transmetatarsal amputation right foot and possible percutaneous tendoachilles lengthening, possibly on . MRI reviewed for Right foot for preoperative planning. CONCLUSION: 1. There is bone marrow edema with abnormal enhancement suspicious for osteomyelitis in the fifth metacarpal head, third metacarpal head, and proximal phalanx of the third digit. 2. Nonspecific marrow edema is present in the proximal phalanx of the fifth digit. 3. Diffuse subcutaneous edema with a wound along the dorsal aspect of the foot superficial to the distal third metacarpal and expected location of the distal fourth metacarpal.
--- NOTE | 2018-04-18 12:53 | P.PN ---
Subjective Interval history: This is a pleasant 43 y/o male with DM II, diabetic Neuropathy, Hypertension, Hyperlipidemia, Status post right lower extremity bypass graft Dr. Cullen, right fourth toe amputation by Dr. Gates who came into the hospital for evaluation of worsening right foot diabetic infection. Seen by Vascular surgery non palpable distal pulses as per Vascular, scheduled for diagnostic Right lower extremity angiogram 04/15/18, NPO at midnight, Hemoglobin A1C, DARRIUS's ordered. 04/15: Stable in his bedroom status post right lower extremity angiogram Severe right lower extremity peripheral arterial disease with large component of small vessel disease, Moderate range left lower extremity DARRIUS's with reduced TBI's proposal for R SHOE WORKER to Perimalleolar PT bypass with Cryo. the patient is asking for BKA and surgery recommended to think about it, I talk to the patient while he was eating his Dinner, he still has not came to a decision will follow in am tomorrow 04/16: Constipation started on Laxatives. discussed with patient and his relatives in the room, no complaint, decided for Amputation I will leave the discussion with patient to Vascular specialist. 04/17: Seen in his bedroom, will discuss with Vascular collective bargaining specialist about his case, at this time, no new issues. 04/18: Stable in his bedroom, with his relatives by his side, no nausea, vomit or diarrhea, read the evaluation performed by Doctor Alyse the patient has decided for BKA. following specialist recommendations. Physical Exam Vital signs: Vital Signs 04/17/18 15:56 04/17/18 20:00 04/18/18 00:00 Temperature 98.7 F 98.5 F 97.9 F Pulse Rate 89 87 90 Respiratory Rate 19 20 20 Blood Pressure 175/86 H 173/82 H 174/97 H Pulse Oximetry 99 98 99 04/18/18 08:00 Temperature 97.8 F Pulse Rate 87 Respiratory Rate 19 Blood Pressure 164/79 H Pulse Oximetry 100 Intake & Output 04/17/18 04/18/18 04/18/18 18:59 06:59 18:59 Intake Total 1850 / 1850 100 / 100 1262.5 / 1262.5 Output Total 1200 / 1200 Balance 650 / 650 100 / 100 1262.5 / 1262.5 Weight 118.4 kg Intake: IV 1050 / 1050 100 / 100 1262.5 / 1262.5 NS Inj 1,000 ML @ 100 mls/hr IV 1000 / 1000 1000 / 1000 .CONT .Q10H [facility] Rx#:[id number] Zosyn 3.375 GM Premix 50 ML @ 50 / 50 100 / 100 100 mls/hr IV.SIG Q8H [facility] Rx#: [id number] Vancomycin Inj 1,250 MG In NS 262.5 / 262.5 Inj 250 ML @ 262.5 mls/hr IV. SIG Q12H [facility] Rx#:[id number] Oral 800 / 800 Output: Urine 1200 / 1200 Other: Date of Last Bowel Movement 04/16/18 Narrative: GENERAL: Obese. well-developed patient, in no apparent distress. SKIN: Warm and dry. HEENT: Normocephalic. Pupils equal round and reactive. Nose without bleeding. Airway patent. NECK: Trachea midline. Supple. CARDIOVASCULAR: Regular rate and rhythm without murmurs, gallops, or rubs. RESPIRATORY: Diminished bases. No wheezes, rales, or rhonchi. GASTROINTESTINAL: Abdomen soft, non-tender, nondistended. Bowel Sounds normoactive x4. MUSCULOSKELETAL: Extremities without clubbing, Right foot dressed. and ankle. NEUROLOGICAL: Awake and alert. Results - Labs CBC & Chem 7: 04/14/18 05:45 04/17/18 05:45 Laboratory Results - last 24 hr 04/17/18 04/17/18 04/17/18 13:58 16:25 17:50 POC Glucose 211 H 198 H Vancomycin Trough Cancelled Random Vancomycin 04/18/18 04/18/18 10:00 12:33 POC Glucose 218 H Vancomycin Trough Random Vancomycin 34.3 Microbiology 04/13/18 13:10 Blood - Peripheral Aerobic Blood Culture - Final No growth in 5 days 04/13/18 13:10 Blood - Peripheral Anaerobic Blood Culture - Final No growth in 5 days 04/13/18 12:51 Blood - Peripheral Aerobic Blood Culture - Final No growth in 5 days 04/13/18 12:51 Blood - Peripheral Anaerobic Blood Culture - Final No growth in 5 days - Imaging Impressions Foot MRI 04/17/18 00:00 CONCLUSION: 1. There is bone marrow edema with abnormal enhancement suspicious for osteomyelitis in the fifth metacarpal head, third metacarpal head, and proximal phalanx of the third digit. 2. Nonspecific marrow edema is present in the proximal phalanx of the fifth digit. 3. Diffuse subcutaneous edema with a wound along the dorsal aspect of the foot superficial to the distal third metacarpal and expected location of the distal fourth metacarpal. - Procedures DATE OF OPERATION: 04/15/2018 PREOPERATIVE DIAGNOSES: 1. Right extremity tissue loss. 2. Peripheral vascular disease. POSTOPERATIVE DIAGNOSES: 1. Right extremity tissue loss. 2. Peripheral vascular disease. PROCEDURE PERFORMED: Aortogram with right extremity angiogram. ATTENDING SURGEON: Moe Cullen MD Extremity Arterial Study 04/14/18 00:00 CONCLUSION: 1. Severe right lower extremity peripheral arterial disease with large component of small vessel disease. 2. Moderate range left lower extremity DARRIUS's with reduced TBI's consistent with component of small vessel disease. 3. Consider CT angiography for further evaluation. MRI ordered R foot Assessment and Plan - Plan Patient is a 43 year old AA male with past medical history of diabetes, diabetic neuropathy, HTN, HLD, status post right lower extremity bypass graft Dr. Cullen, right fourth toe amputation by Dr. Gates who came into the hospital for evaluation of worsening right foot diabetic infection. SIRS, Sepsis secondary to Right foot infection Diabetic foot infection Seen by Vascular surgery non palpable distal pulses as Per Vascular specialist Status post right lower extremity angiogram Severe right lower extremity peripheral arterial disease with large component of small vessel disease, Moderate range left lower extremity DARRIUS's with reduced TBI's proposal for R SHOE WORKER to Perimalleolar PT bypass with Cryo. the patient is asking for BKA and surgery recommended to think about it. the patient states he wants to proceed with Amputation. BKA to proceed. 5th toe cellulitis vs osteomyelitis -Meeting SIRS, Sepsis criteria -HR 97 WBC 11.9, ESR 102, C-reactive protein 10.70, creatinine 1.31 -Foot xray showed Stable examination with postsurgical changes not significantly changed -Previous cultures of the foot 04/08/18 -Enterococcus faecalis, pseudomonas aeruginosa -he was placed on ampicillin, Levaquin based on sensitivities -Vancomycin, Zosyn given in the ED. today he has grown Group D Enterococcus already removed Zosyn and continued on Vancomycin. DM 2, insulin-dependent uncontrolled started on Levemir and continue sliding scale to medium dose. -Keep blood sugar below 180 gr/dl Levemir 22 BID, medium sliding scale, scheduled 5 units pre meal. HTN Uncontrolled increased dosages of Amlodipine to 10 mg, add HCTZ 12.5 mg daily, Lisinopril 40 mg BID and on Clonidine 0.1 every 8 hours. HLD continue Home medicines. Acute kidney injury -Baseline creatinine 0.85- 1.1 -continue IV hydration improving to baseline. Obesity strongly recommended diet and exercise. DVT prop SCD Heparin Code Status: Full Code. Discussed Condition With: Patient, relative in the room and nurse Miss Driscoll. Discharge Planning: once cleared by specialists.
[2018-04-18] MEDS ORDERED: Insulin Detemir Inj 1,000 UNIT/10 ML Vial SQ ONE (14:00)
[2018-04-18] MEDS ORDERED: Pharmacy Ordered Lab Info OTHER ONE (19:45)
[2018-04-19] MEDS: Piperacil/Tazo 3.375 GM Premix 50 ML IV.SIG SCH ×4 (00:45→19:14)
[2018-04-19] MEDS: Insulin NovoLOG Aspart Correctional Sugar Inj SQ SCH ×4 (00:47→18:54)
[2018-04-19] MEDS: Sod Chloride 0.9% Inj 1,000 ML IV.CONT SCH ×2 (06:44→19:13)
[2018-04-19] MEDS: Gabapentin 300 MG Capsule PO SCH ×3 (09:38→19:14)
[2018-04-19] MEDS: Heparin - SQ 10,000 UNITS/ML Vial SQ SCH ×2 (09:38→21:12)
[2018-04-19] MEDS: Lisinopril 20 MG Tablet PO SCH ×2 (09:38→21:12)
[2018-04-19] MEDS: amLODIPine 10 MG Tablet PO SCH (09:39)
[2018-04-19] MEDS: Insulin Detemir Inj 1,000 UNIT/10 ML Vial SQ SCH ×2 (09:47→21:20)
[2018-04-19] MEDS: Vancomycin Inj 1,250 MG in Sodium Chlor 0.9% Inj 250 ML IV.SIG SCH ×2 (09:48→21:11)
--- NOTE | 2018-04-19 10:49 | P.PN ---
Subjective Interval history: This is a pleasant 43 y/o male with DM II, diabetic Neuropathy, Hypertension, Hyperlipidemia, Status post right lower extremity bypass graft Dr. Cullen, right fourth toe amputation by Dr. Gates who came into the hospital for evaluation of worsening right foot diabetic infection. Seen by Vascular surgery non palpable distal pulses as per Vascular, scheduled for diagnostic Right lower extremity angiogram 04/15/18, NPO at midnight, Hemoglobin A1C, DARRIUS's ordered. 04/15: Stable in his bedroom status post right lower extremity angiogram Severe right lower extremity peripheral arterial disease with large component of small vessel disease, Moderate range left lower extremity DARRIUS's with reduced TBI's proposal for R [employer] to Perimalleolar PT bypass with Cryo. the patient is asking for BKA and surgery recommended to think about it, I talk to the patient while he was eating his Dinner, he still has not came to a decision will follow in am tomorrow 04/16: Constipation started on Laxatives. discussed with patient and his relatives in the room, no complaint, decided for Amputation I will leave the discussion with patient to Vascular specialist. 04/17: Seen in his bedroom, will discuss with Vascular quality measurement specialist about his case, at this time, no new issues. 04/18: Stable in his bedroom, with his relatives by his side, read the evaluation performed by Doctor Alyse the patient has decided for BKA. following specialist recommendations. 04/19: Patient with his in his bed, they want to talk with Vascular quality measurement specialist before the Amputation tomorrow no nausea, vomit or diarrhea. Physical Exam Vital signs: Vital Signs 04/18/18 12:00 04/18/18 15:04 04/18/18 20:00 Temperature 97.6 F 97.7 F 98.2 F Pulse Rate 92 H 93 H 99 H Respiratory Rate 19 19 20 Blood Pressure 192/90 H 188/90 H 198/99 H Pulse Oximetry 99 98 98 04/19/18 00:00 04/19/18 08:00 Temperature 98 F 97.8 F Pulse Rate 94 H 80 Respiratory Rate 20 18 Blood Pressure 178/86 H 142/71 H Pulse Oximetry 99 99 Intake & Output 04/18/18 04/19/18 04/19/18 18:59 06:59 18:59 Intake Total 3012.5 / 3012.5 1412.5 / 1412.5 Balance 3012.5 / 3012.5 1412.5 / 1412.5 Weight 118.6 kg Intake: IV 2312.5 / 2312.5 1412.5 / 1412.5 NS Inj 1,000 ML @ 100 mls/hr IV 1999 / 1999 1000 / 1000 .CONT .Q10H [facility] Rx#:[id number] Zosyn 3.375 GM Premix 50 ML @ 50 / 50 150 / 150 100 mls/hr IV.SIG Q6H [facility] Rx#: [id number] Vancomycin Inj 1,250 MG In NS 262.5 / 262.5 262.5 / 262.5 Inj 250 ML @ 262.5 mls/hr IV. SIG Q12H [facility] Rx#:[id number] Oral 700 / 700 Other: # Voids 5 Date of Last Bowel Movement 04/16/18 Narrative: GENERAL: Obese. well-developed patient, in no apparent distress. SKIN: Warm and dry. HEENT: Normocephalic. Pupils equal round and reactive. Nose without bleeding. Airway patent. NECK: Trachea midline. Supple. CARDIOVASCULAR: Regular rate and rhythm without murmurs, gallops, or rubs. RESPIRATORY: Diminished bases. No wheezes, rales, or rhonchi. GASTROINTESTINAL: Abdomen soft, non-tender, nondistended. Bowel Sounds normoactive x4. MUSCULOSKELETAL: Extremities without clubbing, Right foot dressed. and ankle. NEUROLOGICAL: Awake and alert. Results - Labs CBC & Chem 7: 04/14/18 05:45 04/19/18 04:24 Laboratory Results - last 24 hr 04/18/18 04/18/18 04/18/18 10:00 12:33 17:57 Creatinine Estimated GFR POC Glucose 218 H 196 H Random Vancomycin 34.3 04/19/18 04/19/18 04/19/18 00:36 04:24 05:56 Creatinine 1.32 H Estimated GFR 72 L POC Glucose 207 H 158 H Random Vancomycin Microbiology 04/13/18 13:10 Blood - Peripheral Aerobic Blood Culture - Final No growth in 5 days 04/13/18 13:10 Blood - Peripheral Anaerobic Blood Culture - Final No growth in 5 days 04/13/18 12:51 Blood - Peripheral Aerobic Blood Culture - Final No growth in 5 days 04/13/18 12:51 Blood - Peripheral Anaerobic Blood Culture - Final No growth in 5 days - Procedures DATE OF OPERATION: 04/15/2018 PREOPERATIVE DIAGNOSES: 1. Right extremity tissue loss. 2. Peripheral vascular disease. POSTOPERATIVE DIAGNOSES: 1. Right extremity tissue loss. 2. Peripheral vascular disease. PROCEDURE PERFORMED: Aortogram with right extremity angiogram. ATTENDING SURGEON: Moe Cullen MD Extremity Arterial Study 04/14/18 00:00 CONCLUSION: 1. Severe right lower extremity peripheral arterial disease with large component of small vessel disease. 2. Moderate range left lower extremity DARRIUS's with reduced TBI's consistent with component of small vessel disease. 3. Consider CT angiography for further evaluation. MRI ordered R foot Assessment and Plan - Plan Patient is a 43 year old AA male with past medical history of diabetes, diabetic neuropathy, HTN, HLD, status post right lower extremity bypass graft Dr. Cullen, right fourth toe amputation by Dr. Gates who came into the hospital for evaluation of worsening right foot diabetic infection. SIRS, Sepsis secondary to Right foot infection Diabetic foot infection Seen by Vascular surgery non palpable distal pulses as Per Vascular specialist Status post right lower extremity angiogram Severe right lower extremity peripheral arterial disease with large component of small vessel disease, Moderate range left lower extremity DARRIUS's with reduced TBI's proposal for R [employer] to Perimalleolar PT bypass with Cryo. the patient is asking for BKA and surgery recommended to think about it. the patient states he wants to proceed with Amputation. BKA to proceed. afebrile, afebrile, continue management with antibiotics until he has Amputation then antibiotics may be removed, he hasn't got BSI. 5th toe cellulitis vs osteomyelitis -Meeting SIRS, Sepsis criteria -HR 97 WBC 11.9, ESR 102, C-reactive protein 10.70, creatinine 1.31 -Foot xray showed Stable examination with postsurgical changes not significantly changed -Previous cultures of the foot 04/08/18 -Enterococcus faecalis, pseudomonas aeruginosa -he was placed on ampicillin, Levaquin based on sensitivities -Vancomycin, Zosyn given in the ED. today he has grown Group D Enterococcus already removed Zosyn and continued on Vancomycin. DM 2, insulin-dependent uncontrolled started on Levemir and continue sliding scale to medium dose. -Keep blood sugar below 180 gr/dl Levemir 22 BID, medium sliding scale, scheduled 5 units pre meal. better control HTN Uncontrolled increased dosages of Amlodipine to 10 mg, add HCTZ 12.5 mg daily, Lisinopril 40 mg BID and on Clonidine 0.1 every 8 hours. Poor blood pressure control will increase Clonidine to 0.2 mg every 8 hours and follow HLD continue Home medicines. Acute kidney injury -Baseline creatinine 0.85- 1.1 -Creatinine 1.32 following today with BMP Obesity strongly recommended diet and exercise. DVT prop SCD Heparin Code Status: Full code Discussed Condition With: Patient and his in the room. also nurse Miss Bermudez Discharge Planning: once cleared by specialists.
--- NOTE | 2018-04-19 14:14 | P.PNVS ---
Subjective Subjective/Hospital Course: Pt s/p R LE angiogram; resting comfortably, no problems. I had another long talk with patient and his . He is leaning towards primary BKA but needs to talk with his family. Objective Vital Signs / I&O: Vital Signs 04/18/18 15:04 04/18/18 20:00 04/19/18 00:00 Temperature 97.7 F 98.2 F 98 F Pulse Rate 93 H 99 H 94 H Respiratory Rate 19 20 20 Blood Pressure 188/90 H 198/99 H 178/86 H Pulse Oximetry 98 98 99 04/19/18 08:00 04/19/18 12:00 Temperature 97.8 F 97.9 F Pulse Rate 80 85 Respiratory Rate 18 18 Blood Pressure 142/71 H 182/76 H Pulse Oximetry 99 98 Intake & Output 04/18/18 04/19/18 04/19/18 18:59 06:59 18:59 Intake Total 3012.5 / 3012.5 1412.5 / 1412.5 262 / 262 Balance 3012.5 / 3012.5 1412.5 / 1412.5 262 / 262 Weight 118.6 kg Intake: IV 2312.5 / 2312.5 1412.5 / 1412.5 262 / 262 NS Inj 1,000 ML @ 100 mls/hr IV 1999 / 1999 1000 / 1000 .CONT .Q10H [facility] Rx#:[id number] Zosyn 3.375 GM Premix 50 ML @ 50 / 50 150 / 150 100 mls/hr IV.SIG Q6H [facility] Rx#: [id number] Vancomycin Inj 1,250 MG In NS 262.5 / 262.5 262.5 / 262.5 262 / 262 Inj 250 ML @ 262.5 mls/hr IV. SIG Q12H [facility] Rx#:[id number] Oral 700 / 700 Other: # Voids 5 Date of Last Bowel Movement 04/16/18 Physical Exam: R leg motor intact Laboratory Results - last 24 hr 04/18/18 04/19/18 04/19/18 17:57 00:36 04:24 Creatinine 1.32 H Estimated GFR 72 L POC Glucose 196 H 207 H 04/19/18 05:56 Creatinine Estimated GFR POC Glucose 158 H Microbiology 04/13/18 13:10 Aerobic Blood Culture - Final Blood - Peripheral No growth in 5 days Anaerobic Blood Culture - Final No growth in 5 days 04/13/18 12:51 Aerobic Blood Culture - Final Blood - Peripheral No growth in 5 days Anaerobic Blood Culture - Final No growth in 5 days Impressions Foot MRI 04/17/18 00:00 CONCLUSION: 1. There is bone marrow edema with abnormal enhancement suspicious for osteomyelitis in the fifth metacarpal head, third metacarpal head, and proximal phalanx of the third digit. 2. Nonspecific marrow edema is present in the proximal phalanx of the fifth digit. 3. Diffuse subcutaneous edema with a wound along the dorsal aspect of the foot superficial to the distal third metacarpal and expected location of the distal fourth metacarpal. Assessment and Plan - Assessment (1) PAD (peripheral artery disease) Code(s): I73.9 - Peripheral vascular disease, unspecified Status: Acute - Plan s/p R LE angiogram I discussed with the patient the options for revascularization vs primary BKA again. He has no autogenous conduit suitable and his option would be a R [employer]OR to perimalleolar PT bypass with cryo. His target looks reasonable on angiogram but the skilled nursing patency of such a bypass is limited. The other option is a BKA. I will await the patient's decision.
[2018-04-19 16:35] LABS: Carbon Dioxide 25.4 meq/L (21.0-32.0); Potassium 3.9 meq/L (3.5-5.1)
[2018-04-19] MEDS ORDERED: Pharmacy Ordered Lab Info OTHER ONE (19:45)
[2018-04-20] MEDS: Piperacil/Tazo 3.375 GM Premix 50 ML IV.SIG SCH ×4 (01:09→18:00)
[2018-04-20] MEDS: Insulin NovoLOG Aspart Correctional Sugar Inj SQ SCH ×4 (01:10→19:42)
[2018-04-20] MEDS ORDERED: Pharmacy Ordered Lab Info OTHER ONE (06:00)
[2018-04-20] MEDS: Sod Chloride 0.9% Inj 1,000 ML IV.CONT SCH ×2 (06:15→17:02)
--- NOTE | 2018-04-20 11:03 | P.CONWOU ---
History of Present Illness Service: 04/20/18 Primary Care Provider: UNKNOWN Chief Complaint: "Foot infection" [facility] - History History Provided By: Patient - Medical History Medical History: Medical History (Last Reviewed 04/14/18 @ 10:56 by Kasey Caldwell) HLD (hyperlipidemia) Amputated toe Diabetes Hypertension - Surgical History Surgical History: Surgical History (Last Reviewed 04/14/18 @ 10:56 by Kasey Caldwell) History of arthroplasty of left ankle Hx of CABG - Family History Family History: Family History (Last Reviewed 04/14/18 @ 10:56 by Kasey Caldwell) Mother DM type 2 (diabetes mellitus, type 2) Father DM type 2 (diabetes mellitus, type 2) - Tobacco History Second Hand Smoke Exposure: Yes Smoking Status: Current every day smoker Tobacco Type: Cigarettes Packs Per Day: 0.5 - Alcohol History How Often Do You Have a Drink Containing Alcohol: Never - Substance Use History Substance History: No History of Abuse - Travel History Recent Travel in the [place] Within the Last 8 Weeks: No Recent Travel Out of the Country Within the Last 8 Weeks: No - Immunization History Tetanus Immunization: >5 Years Hx Influenza Vaccine This Season: No Medications and Allergies Active Medications: Active Medications Hydrocodone Bitart/Acetaminophen (Perry 5/325) 1 tab PO Q4H PRN PRN Reason: PAIN SCALE 3 TO 5 Hydrocodone Bitart/Acetaminophen (Perry 10/325) 1 tab PO Q4H PRN PRN Reason: PAIN SCALE 6 TO 10 Last Admin: 04/19/18 14:40 Dose: 1 tab Amlodipine Besylate (Norvasc) 10 mg PO DAILY [facility] Last Admin: 04/19/18 09:39 Dose: 10 mg Aspirin (Ecotrin) 81 mg PO DAILY [facility] Last Admin: 04/19/18 09:38 Dose: 81 mg Atorvastatin Calcium (Lipitor) 40 mg PO DAILY [facility] Last Admin: 04/19/18 09:38 Dose: 40 mg Clonidine HCl (Catapres) 0.2 mg PO Q8H [facility] Last Admin: 04/20/18 06:15 Dose: 0.2 mg Dextrose (D50w Vial) 50 ml IV.PUSH UNSCH PRN PRN Reason: PER HYPOGLYCEMIA PROTOCOL Gabapentin (Neurontin) 300 mg PO TID [facility] Last Admin: 04/19/18 19:14 Dose: 300 mg Glucagon (Glucagon Inj) 1 mg OTHER PRN PRN PRN Reason: for Hypoglycemia Protocol Glycerin (Glycerin Adult Supp) 2 gm RECTAL DAILY PRN PRN Reason: CONSTIPATION Heparin Sodium (Porcine) (Heparin Inj) 5,000 units SQ Q12HR [facility] Last Admin: 04/19/18 21:12 Dose: 5,000 units Hydrochlorothiazide (Microzide) 12.5 mg PO DAILY [facility] Last Admin: 04/19/18 09:38 Dose: 12.5 mg Sodium Chloride (Ns Inj) 1,000 mls @ 100 mls/hr IV.CONT .Q10H [facility] Last Admin: 04/20/18 06:15 Dose: 100 mls/hr Vancomycin HCl 1,250 mg/ (Sodium Chloride) 262.5 mls @ 262.5 mls/hr IV.SIG Q12H [facility] Last Infusion: 04/19/18 22:14 Dose: Infused Piperacillin/Tazobactam/Dextrose (Zosyn 3.375 Gm Premix) 50 mls @ 100 mls/hr IV.SIG Q6H [facility] Last Infusion: 04/20/18 06:45 Dose: Infused Insulin Aspart (Novolog Insulin Correctional Sugar Inj) 0 unit SQ 07,13,19,01 [facility]; Protocol Last Admin: 04/20/18 06:16 Dose: 2 unit Insulin Detemir (Levemir Inj) 22 unit SQ BID [facility]; Protocol Last Admin: 04/19/18 21:20 Dose: 22 unit Lactulose (Lactulose Liq) 30 ml PO DAILY PRN PRN Reason: CONSTIPATION Last Admin: 04/18/18 20:28 Dose: 30 ml Lisinopril (Prinivil) 40 mg PO BID [facility] Last Admin: 04/19/18 21:12 Dose: 40 mg Morphine Sulfate (Morphine Inj) 4 mg IV.PUSH Q3H PRN PRN Reason: BREAKTHROUGH PAIN Last Admin: 04/17/18 20:24 Dose: 4 mg Naloxone HCl (Narcan Inj) 0.4 mg IV.PUSH UNSCH PRN PRN Reason: SEE LABEL COMMENTS Ondansetron HCl (Zofran Inj) 4 mg IV.PUSH Q6H PRN PRN Reason: Nausea, vomiting Pharmacy Profile Note (Vancomycin Consult Pharmacy) 1 each OTHER UNSCH PRN PRN Reason: Pharmacy to dose Sodium Chloride (Ns Flush) 2 ml IV.FLUSH PRN PRN PRN Reason: FLUSH AFTER USING IV ACCESS Sodium Chloride (Ns Flush) 2 ml IV.FLUSH BID [facility] Last Admin: 04/19/18 21:12 Dose: Not Given Allergies Allergy/AdvReac Type Severity Reaction Status Date / Time No Known Allergies Allergy Verified 04/13/18 12:35 Home Medications Medication Instructions Recorded Confirmed Type amlodipine 5 mg PO DAILY 02/21/18 04/13/18 History amoxicillin 500 mg PO Q8HR 02/21/18 04/13/18 History aspirin [Aspirin Low Dose] 81 mg PO DAILY 02/21/18 04/13/18 History atorvastatin 40 mg PO DAILY 02/21/18 04/13/18 History clopidogrel [Plavix] 75 mg PO DAILY 02/21/18 04/13/18 History gabapentin [Neurontin] 300 mg PO TID 02/21/18 04/13/18 History insulin regular human 40 unit SUB-Q BID 02/21/18 04/13/18 History lisinopril 10 mg PO DAILY 02/21/18 04/13/18 History oxycodone 5 mg PO Q4-6H 02/21/18 04/13/18 History levofloxacin [Levaquin] 750 mg PO DAILY 04/13/18 04/13/18 History Physical Exam Vital signs: Vital Signs 04/19/18 12:00 04/19/18 16:00 04/19/18 20:00 Temperature 97.9 F 97.3 F L 98 F Pulse Rate 85 88 78 Respiratory Rate 18 18 22 Blood Pressure 182/76 H 172/91 H 153/87 H Pulse Oximetry 98 100 98 04/20/18 00:00 04/20/18 04:00 04/20/18 06:07 Temperature 97.2 F L 97.7 F Pulse Rate 78 43 L 82 Respiratory Rate 22 20 Blood Pressure 161/65 H 173/85 H Pulse Oximetry 99 99 100 04/20/18 07:50 Temperature 97.8 F Pulse Rate 79 Respiratory Rate 19 Blood Pressure 131/65 Pulse Oximetry 99 Intake & Output 04/19/18 04/20/18 04/20/18 18:59 06:59 18:59 Intake Total 2552.5 / 2552.5 1412.5 / 1412.5 Output Total 1000 / 1000 Balance 1552.5 / 1552.5 1412.5 / 1412.5 Weight 121.8 kg Intake: IV 1312.5 / 1312.5 1412.5 / 1412.5 NS Inj 1,000 ML @ 100 mls/hr IV 1000 / 1000 1000 / 1000 .CONT .Q10H [facility] Rx#:[id number] Zosyn 3.375 GM Premix 50 ML @ 50 / 50 150 / 150 100 mls/hr IV.SIG Q6H [facility] Rx#: [id number] Vancomycin Inj 1,250 MG In NS 262.5 / 262.5 262.5 / 262.5 Inj 250 ML @ 262.5 mls/hr IV. SIG Q12H [facility] Rx#:[id number] Oral 1240 / 1240 Output: Urine 1000 / 1000 Other: # Voids 1 Wound/Pressure Injury - Patient Status Premedicated for Pain Prior to Dressing Change: No - Wound Right Toe - 5th Digit Wound Assessment: Ongoing Wound Type: Pressure Injury Is This a Chronic Wound: Yes Wound Bed Appearance: Yellow Surrounding Tissue Temperature: Warm Drainage Description: Yellow Drainage Amount: None Drainage Odor: Slight Odor Dressing Status: Changed Wound Packing Type: Gauze Roll Primary Dressing: Gauze Pad Cover Dressing: quin Incision - Patient Status Premedicated for Pain Prior to Dressing Change: No Assessment and Plan - Assessment (1) Gangrene of toe of right foot Code(s): I96 - Gangrene, not elsewhere classified Status: Acute (2) PAD (peripheral artery disease) Code(s): I73.9 - Peripheral vascular disease, unspecified Status: Acute (3) Tobacco abuse Code(s): Z72.0 - Tobacco use Status: Acute (4) Ulcer of right foot Code(s): L97.519 - Non-pressure chronic ulcer of other part of right foot with unspecified severity Status: Acute Plan: Wound dimensions this week are:5cmx3.8cmx0.5cm. Wound was cleaned with normal saline and dressed with gauze and gopi. Patient was extensively counselled about saving his leg. He had been thinking about a bka, however a right transmetatarsal ampputation had been planned. (5) Well controlled type 2 diabetes mellitus Code(s): E11.9 - Type 2 diabetes mellitus without complications Status: Acute (6) Amputated toe of right foot Code(s): Z89.421 - Acquired absence of other right toe(s) Status: Acute
--- NOTE | 2018-04-20 11:27 | P.PN ---
Subjective Interval history: This is a pleasant 43 y/o male with DM II, diabetic Neuropathy, Hypertension, Hyperlipidemia, Status post right lower extremity bypass graft Dr. Cullen, right fourth toe amputation by Dr. Gates who came into the hospital for evaluation of worsening right foot diabetic infection. Seen by Vascular surgery non palpable distal pulses as per Vascular, scheduled for diagnostic Right lower extremity angiogram 04/15/18, NPO at midnight, Hemoglobin A1C, DARRIUS's ordered. 04/15: Stable in his bedroom status post right lower extremity angiogram Severe right lower extremity peripheral arterial disease with large component of small vessel disease, Moderate range left lower extremity DARRIUS's with reduced TBI's proposal for R ASSEMBLER FITTER to Perimalleolar PT bypass with Cryo. the patient is asking for BKA and surgery recommended to think about it, I talk to the patient while he was eating his Dinner, he still has not came to a decision will follow in am tomorrow 04/16: Constipation started on Laxatives. discussed with patient and his relatives in the room, no complaint, decided for Amputation I will leave the discussion with patient to Vascular specialist. 04/17: Seen in his bedroom, will discuss with Vascular vocational rehabilitation specialist about his case, at this time, no new issues. 04/18: Stable in his bedroom, with his relatives by his side, read the evaluation performed by Doctor Alyse the patient has decided for BKA. following specialist recommendations. 04/19: Patient with his in his bed, they want to talk with Vascular vocational rehabilitation specialist before the Amputation tomorrow 04/20: Patient decided for Vascular surgery instead of Amputation, not yet set for surgical day, continue antibiotics now and no nausea, vomit or diarrhea, improving blood pressure. Not found renal artery stenosis on renal ultrasound. Physical Exam Vital signs: Vital Signs 04/19/18 12:00 04/19/18 16:00 04/19/18 20:00 Temperature 97.9 F 97.3 F L 98 F Pulse Rate 85 88 78 Respiratory Rate 18 18 22 Blood Pressure 182/76 H 172/91 H 153/87 H Pulse Oximetry 98 100 98 04/20/18 00:00 04/20/18 04:00 04/20/18 06:07 Temperature 97.2 F L 97.7 F Pulse Rate 78 43 L 82 Respiratory Rate 22 20 Blood Pressure 161/65 H 173/85 H Pulse Oximetry 99 99 100 08/28/18 07:50 Temperature 97.8 F Pulse Rate 79 Respiratory Rate 19 Blood Pressure 131/65 Pulse Oximetry 99 Intake & Output 04/19/18 04/20/18 04/20/18 18:59 06:59 18:59 Intake Total 2552.5 / 2552.5 1412.5 / 1412.5 Output Total 1000 / 1000 Balance 1552.5 / 1552.5 1412.5 / 1412.5 Weight 121.8 kg Intake: IV 1312.5 / 1312.5 1412.5 / 1412.5 NS Inj 1,000 ML @ 100 mls/hr IV 1000 / 1000 1000 / 1000 .CONT .Q10H [facility] Rx#:[id number] Zosyn 3.375 GM Premix 50 ML @ 50 / 50 150 / 150 100 mls/hr IV.SIG Q6H MER Rx#: [id number] Vancomycin Inj 1,250 MG In NS 262.5 / 262.5 262.5 / 262.5 Inj 250 ML @ 262.5 mls/hr IV. SIG Q12H MER Rx#:[id number] Oral 1240 / 1240 Output: Urine 1000 / 1000 Other: # Voids 1 Narrative: GENERAL: Obese. well-developed patient, in no apparent distress. SKIN: Warm and dry. HEENT: Normocephalic. Pupils equal round and reactive. Nose without bleeding. Airway patent. NECK: Trachea midline. Supple. CARDIOVASCULAR: Regular rate and rhythm without murmurs, gallops, or rubs. RESPIRATORY: Diminished bases. No wheezes, rales, or rhonchi. GASTROINTESTINAL: Abdomen soft, non-tender, nondistended. Bowel Sounds normoactive x4. MUSCULOSKELETAL: Extremities without clubbing, Right foot dressed. and ankle. NEUROLOGICAL: Awake and alert. Results - Labs CBC & Chem 7: 04/14/18 05:45 04/19/18 14:42 Laboratory Results - last 24 hr 04/19/18 04/19/18 04/19/18 12:21 14:42 18:43 Sodium 143 Potassium 3.9 Chloride 107 Carbon Dioxide 25.4 Anion Gap 11 BUN 19 H Creatinine 1.24 Estimated GFR 77 L POC Glucose 120 H 163 H Random Glucose 167 H Calcium 9.0 Random Vancomycin 04/19/18 04/20/18 04/20/18 20:58 01:07 03:29 Sodium Potassium Chloride Carbon Dioxide Anion Gap BUN Creatinine Estimated GFR POC Glucose 126 H 188 H Random Glucose Calcium Random Vancomycin 27.4 04/20/18 06:11 Sodium Potassium Chloride Carbon Dioxide Anion Gap BUN Creatinine Estimated GFR POC Glucose 195 H Random Glucose Calcium Random Vancomycin - Procedures DATE OF OPERATION: 04/15/2018 PREOPERATIVE DIAGNOSES: 1. Right extremity tissue loss. 2. Peripheral vascular disease. POSTOPERATIVE DIAGNOSES: 1. Right extremity tissue loss. 2. Peripheral vascular disease. PROCEDURE PERFORMED: Aortogram with right extremity angiogram. ATTENDING SURGEON: Moe Cullen MD Extremity Arterial Study 04/14/18 00:00 CONCLUSION: 1. Severe right lower extremity peripheral arterial disease with large component of small vessel disease. 2. Moderate range left lower extremity DARRIUS's with reduced TBI's consistent with component of small vessel disease. 3. Consider CT angiography for further evaluation. MRI ordered R foot Assessment and Plan - Plan Patient is a 43 year old AA male with past medical history of diabetes, diabetic neuropathy, HTN, HLD, status post right lower extremity bypass graft Dr. Cullen, right fourth toe amputation by Dr. Gates who came into the hospital for evaluation of worsening right foot diabetic infection. SIRS, Sepsis secondary to Right foot infection Diabetic foot infection Seen by Vascular surgery non palpable distal pulses as Per Vascular specialist Status post right lower extremity angiogram Severe right lower extremity peripheral arterial disease with large component of small vessel disease, Moderate range left lower extremity DARRIUS's with reduced TBI's proposal for R ASSEMBLER FITTER to Perimalleolar PT bypass with Cryo. the patient is asking for BKA and surgery recommended to think about it. the patient states he wants to proceed with Amputation. BKA to proceed. afebrile, afebrile, today the patient states he has decided for Vascular procedure instead of Amputation. 5th toe cellulitis vs osteomyelitis -Meeting SIRS, Sepsis criteria -HR 97 WBC 11.9, ESR 102, C-reactive protein 10.70, creatinine 1.31 -Foot xray showed Stable examination with postsurgical changes not significantly changed -Previous cultures of the foot 04/08/18 -Enterococcus faecalis, pseudomonas aeruginosa -he was placed on ampicillin, Levaquin based on sensitivities -Vancomycin, Zosyn given in the ED. today he has grown Group D Enterococcus already removed Zosyn and continued on Vancomycin. DM 2, insulin-dependent uncontrolled started on Levemir and continue sliding scale to medium dose. -Keep blood sugar below 180 gr/dl Levemir 22 BID, medium sliding scale, scheduled 5 units pre meal. better control HTN Uncontrolled increased dosages of Amlodipine to 10 mg, add HCTZ 12.5 mg daily, Lisinopril 40 mg BID and on Clonidine 0.1 every 8 hours. Poor blood pressure control will increase Clonidine to 0.2 mg every 8 hours and follow, better blood pressure readings today. HLD continue Home medicines. Acute kidney injury -Baseline creatinine 0.85- 1.1 Creatinine yesterday 1.27 Obesity strongly recommended diet and exercise. DVT prop SCD Heparin Code Status: Full code. Discussed Condition With: Patient and nurse. Discharge Planning: once cleared by specialists.
--- NOTE | 2018-04-20 12:04 | US ---
EXAM DATE: 04/20/2018 9:52 AM EDT AGE/SEX: 43 years / Male INDICATIONS: Renal artery stenosis. CLINICAL DATA: This is the patient's initial encounter. Patient reports that signs and symptoms have been present for 1 day and indicates a pain score of 0/10. MEDICAL/SURGICAL HISTORY: Hypertension. Diabetes. Hyperlipidemia. CABG. Toe amputation. Left a nkle arthoplasty. COMPARISON: No prior exams available for comparison. PEAK FLOW VELOCITIES: Aorta:__Not visualized. Cm/sec RIGHT RENAL ARTERY: Proximal:__140 cm/sec Mid:__112 cm/sec Distal:__154 cm/sec Renal Aortic Ratio:__Not visualized. Cm/sec Arcuate Artery Resistive Index: Upper -52 cm/sec Mid -44 cm/sec Lower -43 cm/sec LEFT RENAL ARTERY: Proximal:__44 cm/sec Mid:__76 cm/sec Distal:__98 cm/sec Renal Aortic Ratio:__Not visualized. cm/sec Arcuate Artery Resistive Index: Upper -69 cm/sec Mid -90 cm/sec Lower -90 cm/sec MEASUREMENTS: Right Kidney:__ 11.8 x 6.9 x 6.5 cm Left Kidney:__ 13.1 x 7.9 x 7.0 cm FINDINGS: Right Kidney: Normal echotexture and cortical thickness. No mass or hydronephrosis. Left Kidney: Normal echotexture and cortical thickness. No mass or hydronephrosis. Other: None. CONCLUSION: 1. Limited evaluation secondary to body habitus. No evidence of renal artery stenosis Electronically signed by: Dakota Jansen MD 04/20/2018 12:03 PM EDT
[2018-04-20] MEDS: Gabapentin 300 MG Capsule PO SCH ×3 (12:29→17:53)
[2018-04-20] MEDS: Vancomycin Inj 1,250 MG in Sodium Chlor 0.9% Inj 250 ML IV.SIG SCH ×2 (12:30→20:11)
[2018-04-20] MEDS: Insulin Detemir Inj 1,000 UNIT/10 ML Vial SQ SCH ×2 (12:31→21:45)
[2018-04-20] MEDS: Heparin - SQ 10,000 UNITS/ML Vial SQ SCH ×2 (12:31→20:10)
[2018-04-20] MEDS: amLODIPine 10 MG Tablet PO SCH (12:33)
[2018-04-20] MEDS: Lisinopril 20 MG Tablet PO SCH ×2 (12:33→20:11)
[2018-04-21] MEDS: Piperacil/Tazo 3.375 GM Premix 50 ML IV.SIG SCH ×5 (00:53→21:10)
[2018-04-21] MEDS: Sod Chloride 0.9% Inj 1,000 ML IV.CONT SCH ×3 (00:54→21:09)
[2018-04-21] MEDS: Insulin NovoLOG Aspart Correctional Sugar Inj SQ SCH ×4 (01:18→18:50)
[2018-04-21 07:49] LABS: Vancomycin,Random 23.7 Comment
[2018-04-21] MEDS: Vancomycin Inj 1,250 MG in Sodium Chlor 0.9% Inj 250 ML IV.SIG SCH (08:51)
[2018-04-21] MEDS: Gabapentin 300 MG Capsule PO SCH ×3 (08:51→18:40)
[2018-04-21] MEDS: Heparin - SQ 10,000 UNITS/ML Vial SQ SCH ×2 (08:52→21:10)
[2018-04-21] MEDS: Insulin Detemir Inj 1,000 UNIT/10 ML Vial SQ SCH ×2 (08:52→21:32)
[2018-04-21] MEDS: Lisinopril 20 MG Tablet PO SCH ×2 (08:53→21:10)
[2018-04-21] MEDS: amLODIPine 10 MG Tablet PO SCH (08:53)
--- NOTE | 2018-04-21 09:57 | P.PNVS ---
- Pre-operative Note Planned Procedure: RIGHT Lower Extremity Distal Bypass Interval History: Mr. Garibay is a pleasant 43/M well know to us w/ a PMH of severe peripheral arterial occlusive disease with right lower extremity tissue loss Pt underwent a RIGHT above-knee popliteal artery to posterior tibial artery bypass w/ cyro vein on 01/12/18 Pt stated several weeks ago he developed increased pain (R foot that radiates to his calf) with stagnate wound healing Pt sees Dr. 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/2017) Non palpable distal pulses LE warm w/ motor intact Pt c/o short distance claudication Labs: WBC 9.3 th/mm3 (4.0-11.0) 04/14/18 05:45 RBC 3.85 mil/mm3 (4.50-5.90) L 04/14/18 05:45 Hgb 9.7 gm/dL (13.0-17.0) L 04/14/18 05:45 Hct 29.4 % (39.0-51.0) L 04/14/18 05:45 MCV 76.4 fL (80.0-100.0) L 04/14/18 05:45 MCH 25.2 pg (27.0-34.0) L 04/14/18 05:45 MCHC 33.0 % (32.0-36.0) 04/14/18 05:45 RDW 17.9 % (11.6-17.2) H 04/14/18 05:45 Plt Count 361 th/mm3 (150-450) 04/14/18 05:45 MPV 7.6 fL (7.0-11.0) 04/14/18 05:45 INR 1.0 Ratio 04/13/18 12:51 Sodium 143 meq/L (136-145) 04/19/18 14:42 Potassium 3.9 meq/L (3.5-5.1) 04/19/18 14:42 Chloride 107 meq/L (98-107) 04/19/18 14:42 Carbon Dioxide 25.4 meq/L (21.0-32.0) 04/19/18 14:42 Anion Gap 11 meq/L (5-15) 04/19/18 14:42 BUN 19 mg/dL (7-18) H 04/19/18 14:42 Random Glucose 167 mg/dL (74-106) H 04/19/18 14:42 Calcium 9.0 mg/dL (8.5-10.1) 04/19/18 14:42 Imaging: ITS Impressions Foot X-Ray 04/13/18 12:42 CONCLUSION: Stable examination with postsurgical changes not significantly changed. Extremity Arterial Study 04/14/18 00:00 CONCLUSION: 1. Severe right lower extremity peripheral arterial disease with large component of small vessel disease. 2. Moderate range left lower extremity DARRIUS's with reduced TBI's consistent with component of small vessel disease. 3. Consider CT angiography for further evaluation. Foot MRI 04/17/18 00:00 CONCLUSION: 1. There is bone marrow edema with abnormal enhancement suspicious for osteomyelitis in the fifth metacarpal head, third metacarpal head, and proximal phalanx of the third digit. 2. Nonspecific marrow edema is present in the proximal phalanx of the fifth digit. 3. Diffuse subcutaneous edema with a wound along the dorsal aspect of the foot superficial to the distal third metacarpal and expected location of the distal fourth metacarpal. Renal Ultrasound 04/20/18 00:00 CONCLUSION: 1. Limited evaluation secondary to body habitus. No evidence of renal artery stenosis Orders: NPO T&C Operative site marked: Yes Consent: Informed consent has been obtained from Shay Garibay JR. I have explained the procedure in detail and discussed the risks, benefits, and potential complications. All questions have been answered. Patient Contact Information: - Omayra Garibay- [phone]
--- NOTE | 2018-04-21 14:37 | P.PN ---
Subjective Interval history: This is a pleasant 43 y/o male with DM II, diabetic Neuropathy, Hypertension, Hyperlipidemia, Status post right lower extremity bypass graft Dr. Cullen, right fourth toe amputation by Dr. Gates who came into the hospital for evaluation of worsening right foot diabetic infection. Seen by Vascular surgery non palpable distal pulses as per Vascular, scheduled for diagnostic Right lower extremity angiogram 04/15/18, NPO at midnight, Hemoglobin A1C, DARRIUS's ordered. 04/15: Stable in his bedroom status post right lower extremity angiogram Severe right lower extremity peripheral arterial disease with large component of small vessel disease, Moderate range left lower extremity DARRIUS's with reduced TBI's proposal for R PEDIATRIC ALLERGIST to Perimalleolar PT bypass with Cryo. the patient is asking for BKA and surgery recommended to think about it, I talk to the patient while he was eating his Dinner, he still has not came to a decision will follow in am tomorrow 04/16: Constipation started on Laxatives. discussed with patient and his relatives in the room, no complaint, decided for Amputation I will leave the discussion with patient to Vascular specialist. 04/17: Seen in his bedroom, will discuss with Vascular home specialist about his case, at this time, no new issues. 04/18: Stable in his bedroom, with his relatives by his side, read the evaluation performed by Doctor Alyse the patient has decided for BKA. following specialist recommendations. 04/19: Patient with his in his bed, they want to talk with Vascular home specialist before the Amputation tomorrow 04/20: Patient decided for Vascular surgery instead of Amputation, not yet set for surgical day, continue antibiotics now improving blood pressure. Not found renal artery stenosis on renal ultrasound. 04/21: Stable in his bedroom no new issues, reported, as per Vascular he will have Transmetatarsal amputation and also Vascular procedure to try not to perform a BKA. No nausea, vomit or diarrhea. Physical Exam Vital signs: Vital Signs 04/20/18 16:00 04/20/18 20:00 04/21/18 00:00 Temperature 97.9 F 98.1 F 98.5 F Pulse Rate 89 78 81 Respiratory Rate 19 22 22 Blood Pressure 183/93 H 176/84 H 173/89 H Pulse Oximetry 97 96 97 04/21/18 04:00 04/21/18 08:00 04/21/18 12:00 Temperature 98.1 F 97.8 F 98.5 F Pulse Rate 87 74 57 L Respiratory Rate 20 19 19 Blood Pressure 193/98 H 167/82 H 142/65 H Pulse Oximetry 95 93 L 95 Intake & Output 04/20/18 04/21/18 04/21/18 18:59 06:59 18:59 Intake Total 2292.5 / 2292.5 1682.5 / 1682.5 1312.5 / 1312.5 Output Total 900 / 900 800 / 800 Balance 1392.5 / 1392.5 882.5 / 882.5 1312.5 / 1312.5 Weight 121.3 kg Intake: IV 1312.5 / 1312.5 1362.5 / 1362.5 1312.5 / 1312.5 NS Inj 1,000 ML @ 100 mls/hr IV 1000 / 1000 1000 / 1000 1000 / 1000 .CONT .Q10H [facility] Rx#:[id number] Zosyn 3.375 GM Premix 50 ML @ 50 / 50 100 / 100 50 / 50 100 mls/hr IV.SIG Q6H [facility] Rx#: [id number] Vancomycin Inj 1,250 MG In NS 262.5 / 262.5 262.5 / 262.5 262.5 / 262.5 Inj 250 ML @ 262.5 mls/hr IV. SIG Q12H [facility] Rx#:[id number] Oral 980 / 980 320 / 320 Output: Urine 900 / 900 800 / 800 Narrative: GENERAL: Obese. well-developed patient, in no apparent distress. SKIN: Warm and dry. HEENT: Normocephalic. Pupils equal round and reactive. Nose without bleeding. Airway patent. NECK: Trachea midline. Supple. CARDIOVASCULAR: Regular rate and rhythm without murmurs, gallops, or rubs. RESPIRATORY: Diminished bases. No wheezes, rales, or rhonchi. GASTROINTESTINAL: Abdomen soft, non-tender, nondistended. Bowel Sounds normoactive x4. MUSCULOSKELETAL: Extremities without clubbing, Right foot dressed. and ankle. NEUROLOGICAL: Awake and alert. Results - Labs CBC & Chem 7: 04/14/18 05:45 04/21/18 06:56 Laboratory Results - last 24 hr 04/20/18 04/20/18 04/21/18 17:48 21:44 00:54 Creatinine Estimated GFR POC Glucose 215 H 210 H 205 H Random Vancomycin Blood Type 04/21/18 04/21/18 04/21/18 06:27 06:56 13:20 Creatinine 1.32 H Estimated GFR 72 L POC Glucose 130 H Random Vancomycin 23.7 Blood Type B Positive 04/21/18 14:08 Creatinine Estimated GFR POC Glucose 229 H Random Vancomycin Blood Type - Procedures DATE OF OPERATION: 04/15/2018 PREOPERATIVE DIAGNOSES: 1. Right extremity tissue loss. 2. Peripheral vascular disease. POSTOPERATIVE DIAGNOSES: 1. Right extremity tissue loss. 2. Peripheral vascular disease. PROCEDURE PERFORMED: Aortogram with right extremity angiogram. ATTENDING SURGEON: Moe Cullen MD Extremity Arterial Study 04/14/18 00:00 CONCLUSION: 1. Severe right lower extremity peripheral arterial disease with large component of small vessel disease. 2. Moderate range left lower extremity DARRIUS's with reduced TBI's consistent with component of small vessel disease. 3. Consider CT angiography for further evaluation. MRI ordered R foot CONCLUSION: 1. There is bone marrow edema with abnormal enhancement suspicious for osteomyelitis in the fifth metacarpal head, third metacarpal head, and proximal phalanx of the third digit. 2. Nonspecific marrow edema is present in the proximal phalanx of the fifth digit. 3. Diffuse subcutaneous edema with a wound along the dorsal aspect of the foot superficial to the distal third metacarpal and expected location of the distal fourth metacarpal. Assessment and Plan - Plan Patient is a 43 year old AA male with past medical history of diabetes, diabetic neuropathy, HTN, HLD, status post right lower extremity bypass graft Dr. Cullen, right fourth toe amputation by Dr. Gates who came into the hospital for evaluation of worsening right foot diabetic infection. SIRS, Sepsis secondary to Right foot infection Diabetic foot infection Seen by Vascular surgery non palpable distal pulses as Per Vascular specialist Status post right lower extremity angiogram Severe right lower extremity peripheral arterial disease with large component of small vessel disease, Moderate range left lower extremity DARRIUS's with reduced TBI's proposal for R PEDIATRIC ALLERGIST to Perimalleolar PT bypass with Cryo. the patient is asking for BKA and surgery recommended to think about it. the patient states he wants to proceed with Amputation. BKA to proceed. afebrile, afebrile, Probable Vascular procedure and Amputation for tomorrow. 5th toe cellulitis vs osteomyelitis -Meeting SIRS, Sepsis criteria -HR 97 WBC 11.9, ESR 102, C-reactive protein 10.70, creatinine 1.31 -Foot xray showed Stable examination with postsurgical changes not significantly changed -Previous cultures of the foot 04/08/18 -Enterococcus faecalis, pseudomonas aeruginosa -he was placed on ampicillin, Levaquin based on sensitivities -Vancomycin, Zosyn given in the ED. today he has grown Group D Enterococcus already removed Zosyn and continued on Vancomycin. DM 2, insulin-dependent uncontrolled started on Levemir and continue sliding scale to medium dose. -Keep blood sugar below 180 gr/dl Levemir 22 BID, medium sliding scale, scheduled 5 units pre meal. better control HTN Uncontrolled increased dosages of Amlodipine to 10 mg, add HCTZ 12.5 mg daily, Lisinopril 40 mg BID and on Clonidine 0.3 every 8 hours. better blood pressure today HLD continue Home medicines. Acute kidney injury -Baseline creatinine 0.85- 1.1 Creatinine yesterday 1.27 Obesity strongly recommended diet and exercise. DVT prop SCD Heparin Code Status: Full Code. Discussed Condition With: Patient and nurse Miss Rand Discharge Planning: once cleared by specialists.
[2018-04-21] MEDS: Vancomycin Inj 1,000 MG in Sodium Chlor 0.9% Inj 250 ML IV.SIG SCH (21:31)
[2018-04-22] MEDS: Piperacil/Tazo 3.375 GM Premix 50 ML IV.SIG SCH ×4 (01:27→21:29)
[2018-04-22] MEDS: Insulin NovoLOG Aspart Correctional Sugar Inj SQ SCH ×5 (01:59→19:29)
[2018-04-22] MEDS ORDERED: Chlorhexidine Gluconate 2% 1 Pack (2 Cloths) TOPICAL SCH (03:15)
[2018-04-22] MEDS ORDERED: Heparin/NS PF Inj 500 ML ONE (06:37)
[2018-04-22] MEDS ORDERED: Thrombin Topical 20,000 UNIT Spray Kit TOPICAL ONE (06:37)
[2018-04-22] MEDS ORDERED: Protamine Sulfate Inj 50 MG/5 ML Vial ONE (06:37)
[2018-04-22] MEDS ORDERED: Heparin 10,000 UNITS/10 ML Vial (for IV use) ONE ×2 (06:37→06:53)
[2018-04-22] MEDS: Sod Chloride 0.9% Inj 1,000 ML IV.CONT SCH ×3 (06:49→18:27)
[2018-04-22] MEDS ORDERED: Bupivacaine PF 0.25% Inj 30 ML Vial ONE (06:54)
[2018-04-22] MEDS ORDERED: Bupivacaine PF 0.5% Inj 30 ML Vial ONE (06:55)
[2018-04-22] MEDS: Lisinopril 20 MG Tablet PO SCH ×2 (08:01→21:37)
[2018-04-22] MEDS: Vancomycin Inj 1,000 MG in Sodium Chlor 0.9% Inj 250 ML IV.SIG SCH ×2 (08:03→21:36)
[2018-04-22] MEDS: Gabapentin 300 MG Capsule PO SCH ×3 (08:03→18:28)
[2018-04-22] MEDS: Heparin - SQ 10,000 UNITS/ML Vial SQ SCH ×3 (08:04→21:37)
[2018-04-22] MEDS: amLODIPine 10 MG Tablet PO SCH (08:05)
[2018-04-22] MEDS: Insulin Detemir Inj 1,000 UNIT/10 ML Vial SQ SCH ×2 (08:12→18:45)
[2018-04-22] MEDS ORDERED: Phenylephrine/NS 1000 MCG/10ML Syringe IV.PUSH ONE (10:43)
[2018-04-22] MEDS ORDERED: Sodium Chlor 0.9% Inj 500 ML IV.SIG ONE (10:43)
[2018-04-22] MEDS ORDERED: Glycopyrrolate Inj 1 MG/5 ML Syringe IV.PUSH ONE (10:43)
[2018-04-22] MEDS ORDERED: Lidocaine PF 1% Inj 5 ML Syringe INFILTRATN ONE (10:43)
[2018-04-22] MEDS ORDERED: Neostigmine Inj 5 MG/5 ML Syringe IV.PUSH ONE (10:43)
[2018-04-22] MEDS ORDERED: Labetalol HCl Inj 100 MG/20 ML Vial IV.CONT ONE (10:43)
--- NOTE | 2018-04-22 11:58 | P.PN ---
Subjective Interval history: This is a pleasant 43 y/o male with DM II, diabetic Neuropathy, Hypertension, Hyperlipidemia, Status post right lower extremity bypass graft Dr. Cullen, right fourth toe amputation by Dr. Gates who came into the hospital for evaluation of worsening right foot diabetic infection. Seen by Vascular surgery non palpable distal pulses as per Vascular, scheduled for diagnostic Right lower extremity angiogram 04/15/18, NPO at midnight, Hemoglobin A1C, DARRIUS's ordered. 04/15: Stable in his bedroom status post right lower extremity angiogram Severe right lower extremity peripheral arterial disease with large component of small vessel disease, Moderate range left lower extremity DARRIUS's with reduced TBI's proposal for R MEDICAL SERVICE REPRESENTATIVE to Perimalleolar PT bypass with Cryo. the patient is asking for BKA and surgery recommended to think about it, I talk to the patient while he was eating his Dinner, he still has not came to a decision will follow in am tomorrow 04/16: Constipation started on Laxatives. discussed with patient and his relatives in the room, no complaint, decided for Amputation I will leave the discussion with patient to Vascular specialist. 04/17: Seen in his bedroom, will discuss with Vascular cost control specialist about his case, at this time, no new issues. 04/18: Stable in his bedroom, with his relatives by his side, read the evaluation performed by Doctor Alyse the patient has decided for BKA. following specialist recommendations. 04/19: Patient with his in his bed, they want to talk with Vascular cost control specialist before the Amputation tomorrow 04/20: Patient decided for Vascular surgery instead of Amputation, not yet set for surgical day, continue antibiotics now improving blood pressure. Not found renal artery stenosis on renal ultrasound. 04/21: Stable in his bedroom no new issues, reported, as per Vascular he will have Transmetatarsal amputation and also Vascular procedure to try not to perform a BKA. 04/22: Seen in his bedroom status post Right Superficial Femoral Artery to perimalleolar PT with vein patch, as per Vascular specialist continue Pain control, Bradford out tomorrow. discussed with nurse Miss Rand. Physical Exam Vital signs: Vital Signs 04/21/18 12:00 04/21/18 16:00 04/21/18 20:00 Temperature 98.5 F 97.8 F 97.7 F Pulse Rate 57 L 63 76 Respiratory Rate 19 19 18 Blood Pressure 142/65 H 145/78 H 160/91 H Pulse Oximetry 95 96 96 04/22/18 00:00 04/22/18 04:42 Temperature 97.8 F 97.6 F Pulse Rate 81 85 Respiratory Rate 18 20 Blood Pressure 165/86 H 163/90 H Pulse Oximetry 97 95 Intake & Output 04/21/18 04/22/18 04/22/18 18:59 06:59 18:59 Intake Total 2212.5 / 2212.5 2350 / 2350 300 / 300 Output Total 800 / 800 Balance 1412.5 / 1412.5 2350 / 2350 300 / 300 Weight 122 kg Intake: IV 1312.5 / 1312.5 2350 / 2350 300 / 300 Heparin/NS PF Inj 500 ML @ 0 0 / 0 mls/hr .ROUTE .STK-MED ONE Rx#: [id number] NS Inj 1,000 ML @ 100 mls/hr IV 1000 / 1000 2000 / 1999 .CONT .Q10H MER Rx#:[id number] Zosyn 3.375 GM Premix 50 ML @ 50 / 50 100 / 100 50 / 50 100 mls/hr IV.SIG Q6H MER Rx#: [id number] Vancomycin Inj 1,000 MG In NS 250 / 250 250 / 250 Inj 250 ML @ 262.5 mls/hr IV. SIG Q12H MER Rx#:[id number] Vancomycin Inj 1,250 MG In NS 262.5 / 262.5 Inj 250 ML @ 262.5 mls/hr IV. SIG Q12H MER Rx#:[id number] Oral 900 / 900 Output: Urine 800 / 800 Other: # Voids 3 3 Narrative: GENERAL: Obese. well-developed patient, in no apparent distress. SKIN: Warm and dry. HEENT: Normocephalic. Pupils equal round and reactive. Nose without bleeding. Airway patent. NECK: Trachea midline. Supple. CARDIOVASCULAR: Regular rate and rhythm without murmurs, gallops, or rubs. RESPIRATORY: Diminished bases. No wheezes, rales, or rhonchi. GASTROINTESTINAL: Abdomen soft, non-tender, nondistended. Bowel Sounds normoactive x4. MUSCULOSKELETAL: Extremities without clubbing, Right foot dressed. and ankle. NEUROLOGICAL: Awake and alert. - Urinary Catheter Management Indwelling Urethral Catheter Cath placed during this visit: yes Reason for continuing: Hourly intake/output Insertion date: 04/22/18 Insertion time: 10:20 Results - Labs CBC & Chem 7: 04/14/18 05:45 04/21/18 06:56 Laboratory Results - last 24 hr 04/21/18 04/21/18 04/21/18 13:20 14:08 18:45 POC Glucose 229 H 217 H Blood Type B Positive Antibody Screen Negative 04/21/18 04/22/18 04/22/18 21:00 01:29 06:46 POC Glucose 260 H 310 H 206 H Blood Type Antibody Screen - Procedures DATE OF OPERATION: 04/15/2018 PREOPERATIVE DIAGNOSES: 1. Right extremity tissue loss. 2. Peripheral vascular disease. POSTOPERATIVE DIAGNOSES: 1. Right extremity tissue loss. 2. Peripheral vascular disease. PROCEDURE PERFORMED: Aortogram with right extremity angiogram. ATTENDING SURGEON: Moe Cullen MD Extremity Arterial Study 04/14/18 00:00 CONCLUSION: 1. Severe right lower extremity peripheral arterial disease with large component of small vessel disease. 2. Moderate range left lower extremity DARRIUS's with reduced TBI's consistent with component of small vessel disease. 3. Consider CT angiography for further evaluation. MRI ordered R foot CONCLUSION: 1. There is bone marrow edema with abnormal enhancement suspicious for osteomyelitis in the fifth metacarpal head, third metacarpal head, and proximal phalanx of the third digit. 2. Nonspecific marrow edema is present in the proximal phalanx of the fifth digit. 3. Diffuse subcutaneous edema with a wound along the dorsal aspect of the foot superficial to the distal third metacarpal and expected location of the distal fourth metacarpal. (1) PAD (peripheral artery disease) 04/22/18 Code(s): I73.9 - Peripheral vascular disease, unspecified Status: Acute - Plan NOS s/p R SFA to perimalleolar PT with vein patch 1. Pain control 2. BR until tomorrow (POD#1) 3. Bradford out tomorrow (POD#1) 4. Pulse/Doppler checks Assessment and Plan - Plan Patient is a 43 year old AA male with past medical history of diabetes, diabetic neuropathy, HTN, HLD, status post right lower extremity bypass graft Dr. Cullen, right fourth toe amputation by Dr. Gates who came into the hospital for evaluation of worsening right foot diabetic infection. SIRS, secondary to Right foot infection Diabetic foot infection Seen by Vascular surgery non palpable distal pulses as Per Vascular specialist Status post right lower extremity angiogram Severe right lower extremity peripheral arterial disease with large component of small vessel disease, Moderate range left lower extremity DARRIUS's with reduced TBI's proposal for R MEDICAL SERVICE REPRESENTATIVE to Perimalleolar PT bypass with Cryo. today status post Right Superficial Femoral Artery to perimalleolar PT with vein patch, as per Vascular specialist continue Pain control, Bradford out tomorrow. 5th toe cellulitis vs osteomyelitis -Meeting SIRS, Sepsis criteria -HR 97 WBC 11.9, ESR 102, C-reactive protein 10.70, creatinine 1.31 -Foot xray showed Stable examination with postsurgical changes not significantly changed -Previous cultures of the foot 04/08/18 -Enterococcus faecalis, pseudomonas aeruginosa -he was placed on ampicillin, Levaquin based on sensitivities -Vancomycin, Zosyn given in the ED. today he has grown Group D Enterococcus already removed Zosyn and continued on Vancomycin. DM 2, insulin-dependent uncontrolled started on Levemir and continue sliding scale to medium dose. -Keep blood sugar below 180 gr/dl Levemir 25 BID, medium sliding scale, scheduled 5 units pre meal. uncontrolled for surgery. HTN Uncontrolled Amlodipine to 10 mg, add HCTZ 12.5 mg daily, Lisinopril 40 mg BID and on Clonidine 0.3 every 8 hours. HLD continue Home medicines. Acute kidney injury -Baseline creatinine 0.85- 1.1 Creatinine yesterday 1.27 Obesity strongly recommended diet and exercise. DVT prop SCD Heparin Code Status: Full code. Discussed Condition With: patient and nurse Miss Rand. Discharge Planning: once cleared by specialists.
--- NOTE | 2018-04-22 13:01 | P.OP ---
Date of procedure: 04/22/18 Procedure: 1. R SFA-PT bypass (cryo) 2. R PT vein patch 3. Redo bypass Implants: cryo vein Anesthesia: GETA Surgeon: Moe Cullen MD Certified Caregiver: Poornima Benton Estimated blood loss (mL): 200 IV fluids (mL): 2,000 Urine output (mL): 325 Pathology: none sent Operation and Findings: very diseased perimalleolar PT patch and bypass from SFA to PT Palpable graft pulse
[2018-04-22] MEDS ORDERED: *morphine SULFATE 4 MG/ML PERIprocedure ONLY ONE (13:28)
[2018-04-22] MEDS ORDERED: fentaNYL Citrate Inj 100 MCG/2 ML Ampul ONE (13:34)
[2018-04-22] MEDS ORDERED: *morphine SULFATE 10 MG/ML PERIprocedure ONLY ONE (13:36)
[2018-04-22] MEDS ORDERED: HYDROmorphone PF Inj 2 MG/ML Vial ONE (13:55)
--- NOTE | 2018-04-22 14:57 | P.PNVS ---
Subjective Post Op Day #: 0 Procedure: R SFA-PT with vein patch Subjective/Hospital Course: looks good; appropriate pain but getting pain meds. Objective Vital Signs / I&O: Vital Signs 04/21/18 16:00 04/21/18 20:00 04/22/18 00:00 Temperature 97.8 F 97.7 F 97.8 F Pulse Rate 63 76 81 Respiratory Rate 19 18 18 Blood Pressure 145/78 H 160/91 H 165/86 H Pulse Oximetry 96 96 97 04/22/18 04:42 04/22/18 08:00 04/22/18 13:20 Temperature 97.6 F 98.2 F 98.4 F Pulse Rate 85 62 78 Respiratory Rate 20 18 18 Blood Pressure 163/90 H 151/82 H 169/81 H Pulse Oximetry 95 96 100 04/22/18 13:30 04/22/18 13:45 04/22/18 14:00 Temperature Pulse Rate 84 84 80 Respiratory Rate 18 18 18 Blood Pressure 151/76 H 154/77 H 149/75 H Pulse Oximetry 100 100 100 04/22/18 14:10 Temperature Pulse Rate 78 Respiratory Rate 18 Blood Pressure 161/78 H Pulse Oximetry 100 Intake & Output 04/21/18 04/22/18 04/22/18 18:59 06:59 18:59 Intake Total 2212.5 / 2212.5 2350 / 2350 2300 / 2300 Output Total 800 / 800 525 / 525 Balance 1412.5 / 1412.5 2350 / 2350 1775 / 1775 Weight 122 kg Intake: IV 1312.5 / 1312.5 2350 / 2350 300 / 300 Heparin/NS PF Inj 500 ML @ 0 0 / 0 mls/hr .ROUTE .STK-MED ONE Rx#: [id number] NS Inj 1,000 ML @ 100 mls/hr IV 1000 / 1000 2000 / 2000 .CONT .Q10H MER Rx#:[id number] Zosyn 3.375 GM Premix 50 ML @ 50 / 50 100 / 100 50 / 50 100 mls/hr IV.SIG Q6H MER Rx#: [id number] Vancomycin Inj 1,000 MG In NS 250 / 250 250 / 250 Inj 250 ML @ 262.5 mls/hr IV. SIG Q12H MER Rx#:[id number] Vancomycin Inj 1,250 MG In NS 262.5 / 262.5 Inj 250 ML @ 262.5 mls/hr IV. SIG Q12H MER Rx#:[id number] Oral 900 / 900 Anesthesia Amount 1999 Output: Urine 800 / 800 Estimated Blood Loss 200 / 200 Urine Amount (Catheter) 325 / 325 Indwelling Urethral Catheter 325 / 325 Other: # Voids 3 3 Exam: R groin Prevena in place Lower thigh incision c/d/i ankle incision covered. + Pedal doppler signal Laboratory Results - last 24 hr 04/21/18 04/21/18 04/22/18 18:45 21:00 01:29 POC Glucose 217 H 260 H 310 H 04/22/18 04/22/18 06:46 13:39 POC Glucose 206 H 163 H Assessment and Plan - Assessment (1) PAD (peripheral artery disease) Code(s): I73.9 - Peripheral vascular disease, unspecified Status: Acute - Plan NOS s/p R SFA to perimalleolar PT with vein patch 1. Pain control 2. BR until tomorrow (POD#1) 3. Bradford out tomorrow (POD#1) 4. Pulse/Doppler checks
[2018-04-22] MEDS: Morphine Inj 4 MG/ML Vial IV.PUSH PRN (21:35)
[2018-04-23] MEDS: Insulin NovoLOG Aspart Correctional Sugar Inj SQ SCH ×7 (02:00→20:49)
[2018-04-23] MEDS: Morphine Inj 4 MG/ML Vial IV.PUSH PRN ×5 (02:00→21:36)
[2018-04-23] MEDS: Piperacil/Tazo 3.375 GM Premix 50 ML IV.SIG SCH ×4 (02:00→20:49)
[2018-04-23] MEDS: Sod Chloride 0.9% Inj 1,000 ML IV.CONT SCH ×3 (02:07→21:40)
[2018-04-23 03:42] LABS: Hematocrit 27.1 % (39.0-51.0); Hemoglobin 8.7 gm/dL (13.0-17.0); Mean Corpuscular HGB Conc 32.2 % (32.0-36.0); Mean Corpuscular Hemoglobin 24.9 pg (27.0-34.0); Mean Corpuscular Volume 77.2 fL (80.0-100.0); Mean Platelet Volume 7.5 fL (7.0-11.0); Platelet Count 305 th/mm3 (150-450); Red Blood Count 3.51 mil/mm3 (4.50-5.90); Red Cell Distribution Width 17.4 % (11.6-17.2); White Blood Count 12.8 th/mm3 (4.0-11.0)
[2018-04-23 04:07] LABS: Calcium 8.6 mg/dL (8.5-10.1); Carbon Dioxide 25.9 meq/L (21.0-32.0)
--- NOTE | 2018-04-23 07:36 | MP ---
cc: Moe Cullen MD DATE OF OPERATION: 04/22/2018 PREOPERATIVE DIAGNOSIS: Right lower extremity diabetic foot ulcer prophylaxis. POSTOPERATIVE DIAGNOSES: Right lower extremity diabetic foot ulcer prophylaxis. PROCEDURE PERFORMED: 1. Right superior femoral artery to posterior tibial artery bypass. 2. Vein patch on the posterior tibial artery. 3. Redo bypass. ATTENDING SURGEON: Moe Cullen MD REPAIRER SWITCHGEAR: ORQUIDEA Acuna, PA/Web Operations Administrator INDICATIONS FOR PROCEDURE: Mr. Garibay is a 43-year-old gentleman with peripheral diabetes and peripheral arterial occlusive disease already failed one bypass with an angiogram that showed he may have a target at his perimalleolar area. After extensive discussion was had with the patient and his family, he elected for one attempt at a distal bypass for attempted limb salvage. DESCRIPTION OF PROCEDURE: Informed consent was obtained from the patient. He was taken to the operating room and placed supine on the operating room table and an appropriate timeout was taken to assure the patient's identity, operative site and planned procedure. The administration of vancomycin was initiated prior to skin incision and will be continued for ongoing therapy of a polymicrobial foot infection with a preoperative length of stay being greater than 48 hours. Everyone in the room agreed with the timeout and we proceeded. His right leg was prepped and draped. An incision was made in the medial aspect of the foot and the inframalleolar portion. This was carried down to the subcutaneous tissue with electrocautery. The posterior tibial artery was identified. It was noted to be somewhat rubbery but patent and was it dissected free for several centimeters and encircled with a vessel loop. An incision was made in the anterior aspect of the proximal thigh, carried down through subcutaneous tissue with electrocautery and the muscle was retracted and the superficial femoral artery was identified. It was noted to be soft and had a nice pulse in this. A tunnel was created between these 2 with a counter incision in the distal thigh. Cryopreserved vein was brought upon the field and prepared in the standard fashion and flushed. The patient was systemically heparinized with 10,000 units of IV heparin and the ACT was confirmed to be greater than 250 throughout the remainder of the case. Proximal and distal control of the SFA were obtained with profunda clamps and a longitudinal arteriotomy was made with an 11 blade, extended with Parker scissors. The vein was spatulated and sewn end-to-side with running 6-0 Prolene suture. At the completion, it was flushed and noted to be hemostatic. The clamps were released. The vein was then marked for orientation and passed through the tunnel into part down to the area of the posterior tibial artery. Within the thigh, a draining vein of about 2-3 mm was identified, dissected free, clamped proximal and distal in right angles transected and resected and the proximal and distal ends were oversewn with 3-0 silk. This vein was then spatulated to use the vein patch. Proximal and distal control of the posterior tibial artery was obtained with profunda clamps and a longitudinal arteriotomy was made with an 11 blade, extended with Parker scissors. The vein from the thigh, which had been spatulated was then fashioned and sewn on as a patch using running 6-0 Prolene suture. This middle of this patch was then incised with an 11 blade and extended with Parker scissors. The CryoGraft was cut to appropriate length, spatulated and sewn end-to-side to the patch on the posterior tibial artery with running 6-0 Prolene suture. At the completion it was flushed and noted to be hemostatic. The clamps were released. There was a nice Doppler signal in the foot and a palpable graft pulse. The wounds were irrigated. The heparin was reversed with protamine. The wounds were closed with 2-0 Polysorb, 3-0 Polysorb and the proximal incisions were closed with 4-0 Monocryl and the distal incision was closed with a 3-0 nylon interrupted sutures. The sponge and needle counts were correct at the end of the case. I was present, scrubbed, and performed the entire procedure. Moe Cullen MD RJJulio/miguel ángel , 03:08 PM , 03:17 PM
[2018-04-23] MEDS ORDERED: Pharmacy Ordered Lab Info OTHER ONE (07:45)
[2018-04-23] MEDS: Vancomycin Inj 1,000 MG in Sodium Chlor 0.9% Inj 250 ML IV.SIG SCH (09:04)
[2018-04-23] MEDS: amLODIPine 10 MG Tablet PO SCH (09:06)
[2018-04-23] MEDS: Gabapentin 300 MG Capsule PO SCH ×3 (09:06→17:59)
[2018-04-23] MEDS: Insulin Detemir Inj 1,000 UNIT/10 ML Vial SQ SCH ×2 (09:06→20:49)
[2018-04-23] MEDS: Heparin - SQ 10,000 UNITS/ML Vial SQ SCH ×2 (09:07→20:50)
[2018-04-23] MEDS: Lisinopril 20 MG Tablet PO SCH ×2 (09:07→20:50)
--- NOTE | 2018-04-23 13:04 | P.PNVS ---
Subjective Post Op Day #: 1 Procedure: R SFA-PT with vein patch Subjective/Hospital Course: looks great c/o pain BR still Objective Vital Signs / I&O: Vital Signs 04/22/18 13:20 04/22/18 13:30 04/22/18 13:45 Temperature 98.4 F Pulse Rate 78 84 84 Respiratory Rate 18 18 18 Blood Pressure 169/81 H 151/76 H 154/77 H Pulse Oximetry 100 100 100 04/22/18 14:00 04/22/18 14:10 04/22/18 16:00 Temperature 97.8 F Pulse Rate 80 78 85 Respiratory Rate 18 18 20 Blood Pressure 149/75 H 161/78 H 137/67 Pulse Oximetry 100 100 95 04/22/18 20:00 04/23/18 00:00 04/23/18 04:00 Temperature 97.7 F 98.1 F 98.1 F Pulse Rate 94 H 86 85 Respiratory Rate 18 18 18 Blood Pressure 165/91 H 158/80 H 132/68 Pulse Oximetry 98 96 97 04/23/18 08:00 Temperature 98.6 F Pulse Rate 86 Respiratory Rate 18 Blood Pressure 135/79 Pulse Oximetry 96 Intake & Output 04/22/18 04/23/18 04/23/18 18:59 06:59 18:59 Intake Total 2690 / 2690 362.5 / 362.5 1050 / 1050 Output Total 525 / 525 1999 / 1999 350 / 350 Balance 2165 / 2165 -1637.5 / -1637.5 700 / 700 Weight 122.7 kg Intake: IV 450 / 450 362.5 / 362.5 1050 / 1050 Heparin/NS PF Inj 500 ML @ 0 0 / 0 mls/hr .ROUTE .STK-MED ONE Rx#: [id number] NS Inj 1,000 ML @ 100 mls/hr IV 100 / 100 1000 / 1000 .CONT .Q10H MER Rx#:[id number] Zosyn 3.375 GM Premix 50 ML @ 100 / 100 100 / 100 50 / 50 100 mls/hr IV.SIG Q6H MER Rx#: [id number] Vancomycin Inj 1,000 MG In NS 250 / 250 262.5 / 262.5 Inj 250 ML @ 262.5 mls/hr IV. SIG Q12H MER Rx#:[id number] Oral 240 / 240 Anesthesia Amount 1999 Output: Urine 1999 Estimated Blood Loss 200 / 200 Urine Amount (Catheter) 325 / 325 350 / 350 Indwelling Urethral Catheter 325 / 325 350 / 350 Other: Date of Last Bowel Movement 04/22/18 # Bowel Movements 0 Exam: sitting in bed, comfortable R Prevena in place R thigh incision ok R calf incision covered strong pedal PT signal Laboratory Results - last 24 hr 04/22/18 04/22/18 04/23/18 13:39 18:03 01:53 WBC RBC Hgb Hct MCV MCH MCHC RDW Plt Count MPV Sodium Potassium Chloride Carbon Dioxide Anion Gap BUN Creatinine Estimated GFR POC Glucose 163 H 149 H 180 H Random Glucose Calcium Vancomycin Trough 04/23/18 04/23/18 04/23/18 03:34 03:34 05:48 WBC 12.8 H RBC 3.51 L Hgb 8.7 L Hct 27.1 L MCV 77.2 L MCH 24.9 L MCHC 32.2 RDW 17.4 H Plt Count 305 MPV 7.5 Sodium 142 Potassium 4.0 Chloride 107 Carbon Dioxide 25.9 Anion Gap 9 BUN 22 H Creatinine 1.37 H Estimated GFR 69 L POC Glucose 132 H Random Glucose 154 H Calcium 8.6 Vancomycin Trough 04/23/18 04/23/18 08:06 12:49 WBC RBC Hgb Hct MCV MCH MCHC RDW Plt Count MPV Sodium Potassium Chloride Carbon Dioxide Anion Gap BUN Creatinine Estimated GFR POC Glucose 179 H Random Glucose Calcium Vancomycin Trough 23.1 H Assessment and Plan - Assessment (1) PAD (peripheral artery disease) Code(s): I73.9 - Peripheral vascular disease, unspecified Status: Acute - Plan POD#1 s/p redo R fem-PT with patch 1. OOB TC ok 2. Bradford out 3. Pain control 4. Podiatry to debride/resect foot
--- NOTE | 2018-04-23 13:39 | P.PN ---
Subjective Interval history: This is a pleasant 43 y/o male with DM II, diabetic Neuropathy, Hypertension, Hyperlipidemia, Status post right lower extremity bypass graft Dr. Cullen, right fourth toe amputation by Dr. Gates who came into the hospital for evaluation of worsening right foot diabetic infection. Seen by Vascular surgery non palpable distal pulses as per Vascular, scheduled for diagnostic Right lower extremity angiogram 04/15/18, NPO at midnight, Hemoglobin A1C, DARRIUS's ordered. 04/15: Stable in his bedroom status post right lower extremity angiogram Severe right lower extremity peripheral arterial disease with large component of small vessel disease, Moderate range left lower extremity DARRIUS's with reduced TBI's proposal for R BARREL FILLER to Perimalleolar PT bypass with Cryo. the patient is asking for BKA and surgery recommended to think about it, I talk to the patient while he was eating his Dinner, he still has not came to a decision will follow in am tomorrow 04/16: Constipation started on Laxatives. discussed with patient and his relatives in the room, no complaint, decided for Amputation I will leave the discussion with patient to Vascular specialist. 04/17: Seen in his bedroom, will discuss with Vascular accounting software specialist about his case, at this time, no new issues. 04/18: Stable in his bedroom, with his relatives by his side, read the evaluation performed by Doctor Alyse the patient has decided for BKA. following specialist recommendations. 04/19: Patient with his in his bed, they want to talk with Vascular accounting software specialist before the Amputation tomorrow 04/20: Patient decided for Vascular surgery instead of Amputation, not yet set for surgical day, continue antibiotics now improving blood pressure. Not found renal artery stenosis on renal ultrasound. 04/21: Stable in his bedroom no new issues, reported, as per Vascular he will have Transmetatarsal amputation and also Vascular procedure to try not to perform a BKA. 04/22: Seen in his bedroom status post Right Superficial Femoral Artery to perimalleolar PT with vein patch, as per Vascular specialist continue Pain control, Bradford out tomorrow. discussed with nurse Miss Rand. 04/23 : Has pain in his right leg. Has constipation but wants to hold on bowel regimen for now due to pain in his leg and being unable to move. Wants meds for gas retention will give simethicone. No fever overnight., No n/v. No chest pain or sob. Encourage PT Physical Exam Vital signs: Vital Signs 04/22/18 13:45 04/22/18 14:00 04/22/18 14:10 Temperature Pulse Rate 84 80 78 Respiratory Rate 18 Blood Pressure 154/77 H 149/75 H 161/78 H Pulse Oximetry 100 100 100 04/22/18 16:00 04/22/18 20:00 04/23/18 00:00 Temperature 97.8 F 97.7 F 98.1 F Pulse Rate 85 94 H 86 Respiratory Rate Blood Pressure 137/67 165/91 H 158/80 H Pulse Oximetry 95 98 96 04/23/18 04:00 04/23/18 08:00 04/23/18 12:00 Temperature 98.1 F 98.6 F 98.4 F Pulse Rate 85 86 83 Respiratory Rate 18 Blood Pressure 132/68 135/79 141/71 H Pulse Oximetry 97 96 95 Intake & Output 04/22/18 04/23/18 04/23/18 18:59 06:59 18:59 Intake Total 2690 / 2690 362.5 / 362.5 1100 / 1100 Output Total 525 / 525 1999 / 1999 350 / 350 Balance 2165 / 2165 -1637.5 / -1637.5 750 / 750 Weight 122.7 kg Intake: IV 450 / 450 362.5 / 362.5 1100 / 1100 Heparin/NS PF Inj 500 ML @ 0 0 / 0 mls/hr .ROUTE .STK-MED ONE Rx#: [id number] NS Inj 1,000 ML @ 100 mls/hr IV 100 / 100 1000 / 1000 .CONT .Q10H MER Rx#:[id number] Zosyn 3.375 GM Premix 50 ML @ 100 / 100 100 / 100 100 / 100 100 mls/hr IV.SIG Q6H MER Rx#: [id number] Vancomycin Inj 1,000 MG In NS 250 / 250 262.5 / 262.5 Inj 250 ML @ 262.5 mls/hr IV. SIG Q12H MER Rx#:[id number] Oral 240 / 240 Anesthesia Amount 1999 Output: Urine 1999 Estimated Blood Loss 200 / 200 Urine Amount (Catheter) 325 / 325 350 / 350 Indwelling Urethral Catheter 325 / 325 350 / 350 Other: Date of Last Bowel Movement 04/22/18 # Bowel Movements 0 Narrative: GENERAL: Obese. well-developed patient, in no apparent distress. SKIN: Warm and dry. HEENT: Normocephalic. Pupils equal round and reactive. Nose without bleeding. Airway patent. NECK: Trachea midline. Supple. CARDIOVASCULAR: Regular rate and rhythm without murmurs, gallops, or rubs. RESPIRATORY: Diminished bases. No wheezes, rales, or rhonchi. GASTROINTESTINAL: Abdomen soft, non-tender, nondistended. Bowel Sounds normoactive x4. MUSCULOSKELETAL: Extremities without clubbing, Right foot dressed. and ankle. NEUROLOGICAL: Awake and alert. - Urinary Catheter Management Indwelling Urethral Catheter Cath placed during this visit: yes, but has since been removed by the nurse Reason for continuing: Decision to DC catheter Insertion date: 04/22/18 Insertion time: 11:00 Removal date: 04/23/18 Removal time: 09:15 Results - Labs CBC & Chem 7: 04/23/18 03:34 04/23/18 03:34 Laboratory Results - last 24 hr 04/22/18 04/22/18 04/23/18 13:39 18:03 01:53 WBC RBC Hgb Hct MCV MCH MCHC RDW Plt Count MPV Sodium Potassium Chloride Carbon Dioxide Anion Gap BUN Creatinine Estimated GFR POC Glucose 163 H 149 H 180 H Random Glucose Calcium Vancomycin Trough 04/23/18 04/23/18 04/23/18 03:34 03:34 05:48 WBC 12.8 H RBC 3.51 L Hgb 8.7 L Hct 27.1 L MCV 77.2 L MCH 24.9 L MCHC 32.2 RDW 17.4 H Plt Count 305 MPV 7.5 Sodium 142 Potassium 4.0 Chloride 107 Carbon Dioxide 25.9 Anion Gap 9 BUN 22 H Creatinine 1.37 H Estimated GFR 69 L POC Glucose 132 H Random Glucose 154 H Calcium 8.6 Vancomycin Trough 04/23/18 04/23/18 08:06 12:49 WBC RBC Hgb Hct MCV MCH MCHC RDW Plt Count MPV Sodium Potassium Chloride Carbon Dioxide Anion Gap BUN Creatinine Estimated GFR POC Glucose 179 H Random Glucose Calcium Vancomycin Trough 23.1 H - Procedures DATE OF OPERATION: 04/15/2018 PREOPERATIVE DIAGNOSES: 1. Right extremity tissue loss. 2. Peripheral vascular disease. POSTOPERATIVE DIAGNOSES: 1. Right extremity tissue loss. 2. Peripheral vascular disease. PROCEDURE PERFORMED: Aortogram with right extremity angiogram. ATTENDING SURGEON: Moe Cullen MD Extremity Arterial Study 04/14/18 00:00 CONCLUSION: 1. Severe right lower extremity peripheral arterial disease with large component of small vessel disease. 2. Moderate range left lower extremity DARRIUS's with reduced TBI's consistent with component of small vessel disease. 3. Consider CT angiography for further evaluation. MRI ordered R foot CONCLUSION: 1. There is bone marrow edema with abnormal enhancement suspicious for osteomyelitis in the fifth metacarpal head, third metacarpal head, and proximal phalanx of the third digit. 2. Nonspecific marrow edema is present in the proximal phalanx of the fifth digit. 3. Diffuse subcutaneous edema with a wound along the dorsal aspect of the foot superficial to the distal third metacarpal and expected location of the distal fourth metacarpal. (1) PAD (peripheral artery disease) 04/22/18 Code(s): I73.9 - Peripheral vascular disease, unspecified Status: Acute - Plan NOS s/p R SFA to perimalleolar PT with vein patch 1. Pain control 2. BR until tomorrow (POD#1) 3. Bradford out tomorrow (POD#1) 4. Pulse/Doppler checks Date of procedure: 04/22/18 Procedure: 1. R SFA-PT bypass (cryo) 2. R PT vein patch 3. Redo bypass Implants: cryo vein Anesthesia: GETA Surgeon: Moe Cullen MD Simplex Operator: Poornima Benton Estimated blood loss (mL): 200 IV fluids (mL): 2,000 Urine output (mL): 325 Pathology: none sent Operation and Findings: very diseased perimalleolar PT patch and bypass from SFA to PT Palpable graft pulse Assessment and Plan - Plan Patient is a 43 year old AA male with past medical history of diabetes, diabetic neuropathy, HTN, HLD, status post right lower extremity bypass graft Dr. Cullen, right fourth toe amputation by Dr. Gates who came into the hospital for evaluation of worsening right foot diabetic infection. SIRS, secondary to Right foot infection Diabetic foot infection Seen by Vascular surgery non palpable distal pulses as Per Vascular specialist Status post right lower extremity angiogram Severe right lower extremity peripheral arterial disease with large component of small vessel disease, Moderate range left lower extremity DARRIUS's with reduced TBI's proposal for R BARREL FILLER to Perimalleolar PT bypass with Cryo. today status post Right Superficial Femoral Artery to perimalleolar PT with vein patch, as per Vascular specialist continue Pain control, Bradford out tomorrow. 5th toe cellulitis vs osteomyelitis -Meeting SIRS, Sepsis criteria -HR 97 WBC 11.9, ESR 102, C-reactive protein 10.70, creatinine 1.31 -Foot xray showed Stable examination with postsurgical changes not significantly changed -Previous cultures of the foot 04/08/18 -Enterococcus faecalis, pseudomonas aeruginosa -he was placed on ampicillin, Levaquin based on sensitivities -Vancomycin, Zosyn given in the ED. today he has grown Group D Enterococcus already removed Zosyn and continued on Vancomycin. - s/p redo R fem-PT with patch on 04/22/[address] Alyse malone surgeon - Podiatry to debride/resect foot. Pain management per surgeon Gas retention: add symethicone Constipation: bowel regimen DM 2, insulin-dependent uncontrolled started on Levemir and continue sliding scale to medium dose. -Keep blood sugar below 180 gr/dl Levemir 25 BID, medium sliding scale, scheduled 5 units pre meal. uncontrolled for surgery. HTN Uncontrolled Amlodipine to 10 mg, add HCTZ 12.5 mg daily, Lisinopril 40 mg BID and on Clonidine 0.3 every 8 hours. HLD continue Home medicines. Acute kidney injury -Baseline creatinine 0.85- 1.1 Creatinine yesterday 1.27 Obesity strongly recommended diet and exercise. DVT prop SCD Heparin Code Status: Full code. Discussed Condition With: patient and nurse Miss Rand. Discharge Planning: once cleared by specialists. Plan for podiatry to debride/ resect foot
[2018-04-23] MEDS ORDERED: Simethicone 125 MG Chew Tablet PO ONE (16:00)
[2018-04-23] MEDS ORDERED: Simethicone 125 MG Chew Tablet PO PRN (18:00)
[2018-04-23] MEDS: Vancomycin Inj 1,500 MG in Sodium Chlor 0.9% Inj 500 ML IV.SIG SCH (18:00)
[2018-04-24] MEDS: Piperacil/Tazo 3.375 GM Premix 50 ML IV.SIG SCH ×4 (02:18→20:50)
[2018-04-24] MEDS: Insulin NovoLOG Aspart Correctional Sugar Inj SQ SCH ×8 (02:18→19:32)
[2018-04-24] MEDS: Sod Chloride 0.9% Inj 1,000 ML IV.CONT SCH ×2 (07:21→17:30)
[2018-04-24 08:39] LABS: Baso # (Auto) 0.1 th/mm3 (0.0-0.2); Baso % (Auto) 0.6 % (0.0-2.0); Eos # (Auto) 0.4 th/mm3 (0.0-0.4); Eos % (Auto) 3.7 % (0.0-4.0); Hematocrit 23.9 % (39.0-51.0); Hemoglobin 7.9 gm/dL (13.0-17.0); Lymph # (Auto) 1.6 th/mm3 (1.0-4.8); Lymph % (Auto) 15.3 % (9.0-44.0); Mean Corpuscular HGB Conc 33.1 % (32.0-36.0); Mean Corpuscular Hemoglobin 25.4 pg (27.0-34.0); Mean Corpuscular Volume 76.7 fL (80.0-100.0); Mean Platelet Volume 7.8 fL (7.0-11.0); Mono # (Auto) 1.2 th/mm3 (0.0-0.9); Neut # (Auto) 7.5 th/mm3 (1.8-7.7); Neut % (Auto) 69.4 % (16.0-70.0); Platelet Count 277 th/mm3 (150-450); Red Blood Count 3.11 mil/mm3 (4.50-5.90); Red Cell Distribution Width 17.7 % (11.6-17.2); White Blood Count 10.8 th/mm3 (4.0-11.0)
[2018-04-24 09:00] LABS: Carbon Dioxide 26.3 meq/L (21.0-32.0); Potassium 3.9 meq/L (3.5-5.1)
[2018-04-24 09:11] LABS: Calcium 8.6 mg/dL (8.5-10.1)
--- NOTE | 2018-04-24 09:49 | P.PN ---
Subjective Interval history: With severe constipation he is in the chair this time still with pain in his legs however improving. Wants to try laxatives today. No fever or chills. Denies chest pain or shortness of breath. No nausea vomiting . Physical Exam Vital signs: Vital Signs 04/23/18 12:00 04/23/18 16:00 04/23/18 20:00 Temperature 98.4 F 98.4 F 97.6 F Pulse Rate 83 81 92 H Respiratory Rate 18 Blood Pressure 141/71 H 137/71 172/94 H Pulse Oximetry 95 95 95 04/24/18 00:00 04/24/18 04:00 04/24/18 08:00 Temperature 98.6 F 99.2 F 97.9 F Pulse Rate 87 82 Respiratory Rate 17 19 Blood Pressure 138/77 150/78 H 148/69 H Pulse Oximetry 96 97 98 Intake & Output 04/23/18 04/24/18 04/24/18 18:59 06:59 18:59 Intake Total 2060 / 2060 2335 / 2335 1000 / 1000 Output Total 600 / 600 500 / 500 Balance 1460 / 1460 1835 / 1835 1000 / 1000 Weight 122.7 kg Intake: IV 1100 / 1100 1615 / 1615 1000 / 1000 NS Inj 1,000 ML @ 100 mls/hr IV 1000 / 1000 1000 / 1000 1000 / 1000 .CONT .Q10H MER Rx#:[id number] Zosyn 3.375 GM Premix 50 ML @ 100 / 100 100 / 100 100 mls/hr IV.SIG Q6H MER Rx#: [id number] Vancomycin Inj 1,500 MG In NS 515 / 515 Inj 500 ML @ 250 mls/hr IV.SIG Q24H MER Rx#:[id number] Oral 960 / 960 720 / 720 Output: Urine 250 / 250 500 / 500 Urine Amount (Catheter) 350 / 350 Indwelling Urethral Catheter 350 / 350 Other: # Voids 3 1 Date of Last Bowel Movement 04/22/18 Narrative: GENERAL: Obese. well-developed patient, in no apparent distress. SKIN: Warm and dry. HEENT: Normocephalic. Pupils equal round and reactive. Nose without bleeding. Airway patent. NECK: Trachea midline. Supple. CARDIOVASCULAR: Regular rate and rhythm without murmurs, gallops, or rubs. RESPIRATORY: Diminished bases. No wheezes, rales, or rhonchi. GASTROINTESTINAL: Abdomen soft, non-tender, nondistended. Bowel Sounds normoactive x4. MUSCULOSKELETAL: Extremities without clubbing, Right foot dressed. and ankle. NEUROLOGICAL: Awake and alert. - Urinary Catheter Management Indwelling Urethral Catheter Cath placed during this visit: yes, but has since been removed by the nurse Reason for continuing: Decision to DC catheter Insertion date: 04/22/18 Insertion time: 11:00 Removal date: 04/23/18 Removal time: 09:15 Results - Labs CBC & Chem 7: 04/24/18 08:15 04/24/18 08:15 Laboratory Results - last 24 hr 04/23/18 04/23/18 04/24/18 12:49 19:41 02:17 WBC RBC Hgb Hct MCV MCH MCHC RDW Plt Count MPV Neut % (Auto) Lymph % (Auto) Power % (Auto) Eos % (Auto) Baso % (Auto) Neut # (Auto) Lymph # (Auto) Power # (Auto) Eos # (Auto) Baso # (Auto) WBC Differential Differential Comment Sodium Potassium Chloride Carbon Dioxide Anion Gap BUN Creatinine Estimated GFR POC Glucose 179 H 191 H 184 H Random Glucose Calcium 04/24/18 04/24/18 04/24/18 07:20 08:15 08:15 WBC 10.8 RBC 3.11 L Hgb 7.9 L Hct 23.9 L MCV 76.7 L MCH 25.4 L MCHC 33.1 RDW 17.7 H Plt Count 277 MPV 7.8 Neut % (Auto) 69.4 Lymph % (Auto) 15.3 Power % (Auto) 11.0 H Eos % (Auto) 3.7 Baso % (Auto) 0.6 Neut # (Auto) 7.5 Lymph # (Auto) 1.6 Power # (Auto) 1.2 H Eos # (Auto) 0.4 Baso # (Auto) 0.1 WBC Differential . Differential Comment Auto diff final Sodium 142 Potassium 3.9 Chloride 106 Carbon Dioxide 26.3 Anion Gap 10 BUN 24 H Creatinine 1.49 H Estimated GFR 63 L POC Glucose 129 H Random Glucose 104 Calcium 8.6 - Procedures DATE OF OPERATION: 04/15/2018 PREOPERATIVE DIAGNOSES: 1. Right extremity tissue loss. 2. Peripheral vascular disease. POSTOPERATIVE DIAGNOSES: 1. Right extremity tissue loss. 2. Peripheral vascular disease. PROCEDURE PERFORMED: Aortogram with right extremity angiogram. ATTENDING SURGEON: Moe Cullen MD Extremity Arterial Study 04/14/18 00:00 CONCLUSION: 1. Severe right lower extremity peripheral arterial disease with large component of small vessel disease. 2. Moderate range left lower extremity DARRIUS's with reduced TBI's consistent with component of small vessel disease. 3. Consider CT angiography for further evaluation. MRI ordered R foot CONCLUSION: 1. There is bone marrow edema with abnormal enhancement suspicious for osteomyelitis in the fifth metacarpal head, third metacarpal head, and proximal phalanx of the third digit. 2. Nonspecific marrow edema is present in the proximal phalanx of the fifth digit. 3. Diffuse subcutaneous edema with a wound along the dorsal aspect of the foot superficial to the distal third metacarpal and expected location of the distal fourth metacarpal. (1) PAD (peripheral artery disease) 04/22/18 Code(s): I73.9 - Peripheral vascular disease, unspecified Status: Acute - Plan NOS s/p R SFA to perimalleolar PT with vein patch 1. Pain control 2. BR until tomorrow (POD#1) 3. Bradford out tomorrow (POD#1) 4. Pulse/Doppler checks Date of procedure: 04/22/18 Procedure: 1. R SFA-PT bypass (cryo) 2. R PT vein patch 3. Redo bypass Implants: cryo vein Anesthesia: GETA Surgeon: Moe Cullen MD Hvac R Tech: Poornima Benton Estimated blood loss (mL): 200 IV fluids (mL): 2,000 Urine output (mL): 325 Pathology: none sent Operation and Findings: very diseased perimalleolar PT patch and bypass from SFA to PT Palpable graft pulse Assessment and Plan - Plan Patient is a 43 year old AA male with past medical history of diabetes, diabetic neuropathy, HTN, HLD, status post right lower extremity bypass graft Dr. Cullen, right fourth toe amputation by Dr. Gates who came into the hospital for evaluation of worsening right foot diabetic infection. SIRS, secondary to Right foot infection Diabetic foot infection Seen by Vascular surgery non palpable distal pulses as Per Vascular specialist Status post right lower extremity angiogram Severe right lower extremity peripheral arterial disease with large component of small vessel disease, Moderate range left lower extremity DARRIUS's with reduced TBI's proposal for R SYSTEMS ENG to Perimalleolar PT bypass with Cryo. today status post Right Superficial Femoral Artery to perimalleolar PT with vein patch, as per Vascular specialist continue Pain control, Bradford out tomorrow. 5th toe cellulitis vs osteomyelitis -Meeting SIRS, Sepsis criteria -HR 97 WBC 11.9, ESR 102, C-reactive protein 10.70, creatinine 1.31 -Foot xray showed Stable examination with postsurgical changes not significantly changed -Previous cultures of the foot 04/08/18 -Enterococcus faecalis, pseudomonas aeruginosa -he was placed on ampicillin, Levaquin based on sensitivities -Vancomycin, Zosyn given in the ED. today he has grown Group D Enterococcus already removed Zosyn and continued on Vancomycin. - s/p redo R fem-PT with patch on 04/22/[address] Alyse malone surgeon - Podiatry to debride/resect foot. Pain management per surgeon Gas retention: symethicone Constipation: bowel regimen DM 2, insulin-dependent uncontrolled started on Levemir and continue sliding scale to medium dose. -Keep blood sugar below 180 gr/dl Levemir 25 BID, medium sliding scale, scheduled 5 units pre meal. uncontrolled for surgery. HTN Uncontrolled Amlodipine to 10 mg, add HCTZ 12.5 mg daily, Lisinopril 40 mg BID and on Clonidine 0.3 every 8 hours. HLD continue Home medicines. Acute kidney injury -Baseline creatinine 0.85- 1.1 Creatinine yesterday 1.27 Obesity strongly recommended diet and exercise. DVT prop SCD Heparin Code Status: Full code. Discussed Condition With: patient and nurse Miss Rand. Discharge Planning: once cleared by specialists. Plan for podiatry to debride/ resect foot
[2018-04-24] MEDS: Morphine Inj 4 MG/ML Vial IV.PUSH PRN ×4 (10:04→19:31)
[2018-04-24] MEDS: Heparin - SQ 10,000 UNITS/ML Vial SQ SCH ×2 (10:06→20:51)
[2018-04-24] MEDS: amLODIPine 10 MG Tablet PO SCH (10:06)
[2018-04-24] MEDS: Gabapentin 300 MG Capsule PO SCH ×3 (10:07→17:28)
[2018-04-24] MEDS: Lisinopril 20 MG Tablet PO SCH ×2 (10:07→20:51)
[2018-04-24] MEDS: Insulin Detemir Inj 1,000 UNIT/10 ML Vial SQ SCH ×2 (10:07→20:52)
[2018-04-24] MEDS: Vancomycin Inj 1,500 MG in Sodium Chlor 0.9% Inj 500 ML IV.SIG SCH (17:29)
[2018-04-25] MEDS: Insulin NovoLOG Aspart Correctional Sugar Inj SQ SCH ×7 (01:27→18:40)
[2018-04-25] MEDS: Piperacil/Tazo 3.375 GM Premix 50 ML IV.SIG SCH ×4 (01:28→21:14)
[2018-04-25] MEDS: Sod Chloride 0.9% Inj 1,000 ML IV.CONT SCH ×3 (04:29→21:13)
[2018-04-25 08:04] LABS: Baso # (Auto) 0.1 th/mm3 (0.0-0.2); Baso % (Auto) 0.5 % (0.0-2.0); Eos # (Auto) 0.4 th/mm3 (0.0-0.4); Eos % (Auto) 3.7 % (0.0-4.0); Hematocrit 22.1 % (39.0-51.0); Hemoglobin 7.8 gm/dL (13.0-17.0); Lymph # (Auto) 1.6 th/mm3 (1.0-4.8); Lymph % (Auto) 14.1 % (9.0-44.0); Mean Corpuscular HGB Conc 35.3 % (32.0-36.0); Mean Corpuscular Hemoglobin 26.8 pg (27.0-34.0); Mean Platelet Volume 8.1 fL (7.0-11.0); Mono # (Auto) 1.4 th/mm3 (0.0-0.9); Mono % (Auto) 12.5 % (0.0-8.0); Neut # (Auto) 7.7 th/mm3 (1.8-7.7); Neut % (Auto) 69.2 % (16.0-70.0); Platelet Count 274 th/mm3 (150-450); Red Blood Count 2.91 mil/mm3 (4.50-5.90); Red Cell Distribution Width 17.9 % (11.6-17.2); White Blood Count 11.1 th/mm3 (4.0-11.0)
--- NOTE | 2018-04-25 08:55 | P.PN ---
Subjective Interval history: The patient is inquiring regarding IVF use, kidney function is worsening will continue IVF for now Did not have a bowel movement yet and the abdomen is distended. There is no abdominal pain. Pain in his leg is better controlled today. Encourage p.o. intake. We will add bowel prep orders No fever or chills overnight. No chest pain or shortness of breath. Physical Exam Vital signs: Vital Signs 04/24/18 12:00 04/24/18 17:28 04/24/18 20:00 Temperature 98.2 F 98.7 F Pulse Rate 78 87 Respiratory Rate 19 18 17 Blood Pressure 141/76 H 137/79 Pulse Oximetry 97 96 04/25/18 00:00 04/25/18 08:00 Temperature 98.1 F 98.1 F Pulse Rate 86 83 Respiratory Rate 18 17 Blood Pressure 149/80 H 144/72 H Pulse Oximetry 96 98 Intake & Output 04/24/18 04/25/18 04/25/18 18:59 06:59 18:59 Intake Total 2099 / 2100 3415 / 3415 Output Total 1550 / 1550 Balance 2099 / 2099 1865 / 1865 Intake: IV 2099 / 2099 1615 / 1615 NS Inj 1,000 ML @ 100 mls/hr IV 2000 / 2000 1000 / 1000 .CONT .Q10H MER Rx#:[id number] Zosyn 3.375 GM Premix 50 ML @ 100 / 100 100 / 100 100 mls/hr IV.SIG Q6H MER Rx#: [id number] Vancomycin Inj 1,500 MG In NS 515 / 515 Inj 500 ML @ 250 mls/hr IV.SIG Q24H MER Rx#:[id number] Oral 1800 / 1800 Output: Urine 1550 / 1550 Other: # Bowel Movements 2 Narrative: GENERAL: Obese. well-developed patient, in no apparent distress. SKIN: Warm and dry. HEENT: Normocephalic. Pupils equal round and reactive. Nose without bleeding. Airway patent. NECK: Trachea midline. Supple. CARDIOVASCULAR: Regular rate and rhythm without murmurs, gallops, or rubs. RESPIRATORY: Diminished bases. No wheezes, rales, or rhonchi. GASTROINTESTINAL: Abdomen soft, non-tender, nondistended. Bowel Sounds normoactive x4. MUSCULOSKELETAL: Extremities without clubbing, Right foot dressed. and ankle. NEUROLOGICAL: Awake and alert. - Urinary Catheter Management Indwelling Urethral Catheter Cath placed during this visit: yes, but has since been removed by the nurse Reason for continuing: Decision to DC catheter Insertion date: 04/22/18 Insertion time: 11:00 Removal date: 04/23/18 Removal time: 09:15 Results - Labs CBC & Chem 7: 04/25/18 06:58 04/25/18 06:58 Laboratory Results - last 24 hr 04/24/18 04/24/18 04/25/18 08:15 13:06 05:52 WBC RBC Hgb Hct MCV MCH MCHC RDW Plt Count MPV Neut % (Auto) Lymph % (Auto) [place] % (Auto) Eos % (Auto) Baso % (Auto) Neut # (Auto) Lymph # (Auto) [place] # (Auto) Eos # (Auto) Baso # (Auto) WBC Differential Differential Comment Sodium 142 Potassium 3.9 Chloride 106 Carbon Dioxide 26.3 Anion Gap 10 BUN 24 H Creatinine 1.49 H Estimated GFR 63 L POC Glucose 160 H 181 H Random Glucose 104 Calcium 8.6 04/25/18 04/25/18 06:58 06:58 WBC 11.1 H RBC 2.91 L Hgb 7.8 L Hct 22.1 L MCV 76.0 L MCH 26.8 L MCHC 35.3 RDW 17.9 H Plt Count 274 MPV 8.1 Neut % (Auto) 69.2 Lymph % (Auto) 14.1 [place] % (Auto) 12.5 H Eos % (Auto) 3.7 Baso % (Auto) 0.5 Neut # (Auto) 7.7 Lymph # (Auto) 1.6 [place] # (Auto) 1.4 H Eos # (Auto) 0.4 Baso # (Auto) 0.1 WBC Differential . Differential Comment Auto diff final Sodium Potassium Chloride Carbon Dioxide Anion Gap BUN Creatinine 1.54 H Estimated GFR 60 L POC Glucose Random Glucose Calcium - Procedures DATE OF OPERATION: 04/15/2018 PREOPERATIVE DIAGNOSES: 1. Right extremity tissue loss. 2. Peripheral vascular disease. POSTOPERATIVE DIAGNOSES: 1. Right extremity tissue loss. 2. Peripheral vascular disease. PROCEDURE PERFORMED: Aortogram with right extremity angiogram. ATTENDING SURGEON: Moe Cullen MD Extremity Arterial Study 04/14/18 00:00 CONCLUSION: 1. Severe right lower extremity peripheral arterial disease with large component of small vessel disease. 2. Moderate range left lower extremity DARRIUS's with reduced TBI's consistent with component of small vessel disease. 3. Consider CT angiography for further evaluation. MRI ordered R foot CONCLUSION: 1. There is bone marrow edema with abnormal enhancement suspicious for osteomyelitis in the fifth metacarpal head, third metacarpal head, and proximal phalanx of the third digit. 2. Nonspecific marrow edema is present in the proximal phalanx of the fifth digit. 3. Diffuse subcutaneous edema with a wound along the dorsal aspect of the foot superficial to the distal third metacarpal and expected location of the distal fourth metacarpal. (1) PAD (peripheral artery disease) 04/22/18 Code(s): I73.9 - Peripheral vascular disease, unspecified Status: Acute - Plan NOS s/p R SFA to perimalleolar PT with vein patch 1. Pain control 2. BR until tomorrow (POD#1) 3. Bradford out tomorrow (POD#1) 4. Pulse/Doppler checks Date of procedure: 04/22/18 Procedure: 1. R SFA-PT bypass (cryo) 2. R PT vein patch 3. Redo bypass Implants: cryo vein Anesthesia: GETA Surgeon: Moe Cullen MD Lozenge Maker Helper: Poornima Benton Estimated blood loss (mL): 200 IV fluids (mL): 2,000 Urine output (mL): 325 Pathology: none sent Operation and Findings: very diseased perimalleolar PT patch and bypass from SFA to PT Palpable graft pulse Assessment and Plan - Plan Patient is a 43 year old AA male with past medical history of diabetes, diabetic neuropathy, HTN, HLD, status post right lower extremity bypass graft Dr. Cullen, right fourth toe amputation by Dr. Gates who came into the hospital for evaluation of worsening right foot diabetic infection. SIRS, secondary to Right foot infection Diabetic foot infection Seen by Vascular surgery non palpable distal pulses as Per Vascular specialist Status post right lower extremity angiogram Severe right lower extremity peripheral arterial disease with large component of small vessel disease, Moderate range left lower extremity DARRIUS's with reduced TBI's proposal for R DIVISION LEADER to Perimalleolar PT bypass with Cryo. today status post Right Superficial Femoral Artery to perimalleolar PT with vein patch, as per Vascular specialist continue Pain control, Bradford out tomorrow. 5th toe cellulitis vs osteomyelitis -Meeting SIRS, Sepsis criteria -HR 97 WBC 11.9, ESR 102, C-reactive protein 10.70, creatinine 1.31 -Foot xray showed Stable examination with postsurgical changes not significantly changed -Previous cultures of the foot 04/08/18 -Enterococcus faecalis, pseudomonas aeruginosa -he was placed on ampicillin, Levaquin based on sensitivities -Vancomycin, Zosyn given in the ED. today he has grown Group D Enterococcus already removed Zosyn and continued on Vancomycin. - s/p redo R fem-PT with patch on 04/22/[address] Alyse malone surgeon - Podiatry to debride/resect foot. Pain management per surgeon Gas retention: symethicone Constipation: bowel regimen DM 2, insulin-dependent uncontrolled started on Levemir and continue sliding scale to medium dose. -Keep blood sugar below 180 gr/dl Levemir 25 BID, medium sliding scale, scheduled 5 units pre meal. uncontrolled for surgery. HTN Uncontrolled Amlodipine to 10 mg, add HCTZ 12.5 mg daily, Lisinopril 40 mg BID and on Clonidine 0.3 every 8 hours. HLD continue Home medicines. Acute kidney injury -Baseline creatinine 0.85- Cr is worsening. Continue IVF Obesity strongly recommended diet and exercise. DVT prop SCD Heparin Code Status: Full code. Discussed Condition With: patient and nurse Miss Rand. Discharge Planning: once cleared by specialists. Plan for podiatry to debride/ resect foot
[2018-04-25] MEDS: Heparin - SQ 10,000 UNITS/ML Vial SQ SCH ×2 (09:07→21:12)
[2018-04-25] MEDS: Insulin Detemir Inj 1,000 UNIT/10 ML Vial SQ SCH ×2 (09:07→21:13)
--- NOTE | 2018-04-25 09:07 | P.PNVS ---
Subjective Post Op Day #: 3 Procedure: R SFA-PT with vein patch Subjective/Hospital Course: pain reasonably controlled Prevena stopped working yesterday getting OOB TC Objective Vital Signs / I&O: Vital Signs 04/24/18 12:00 04/24/18 17:28 04/24/18 20:00 Temperature 98.2 F 98.7 F Pulse Rate 78 87 Respiratory Rate 19 18 17 Blood Pressure 141/76 H 137/79 Pulse Oximetry 97 96 04/25/18 00:00 04/25/18 08:00 Temperature 98.1 F 98.1 F Pulse Rate 86 83 Respiratory Rate 18 17 Blood Pressure 149/80 H 144/72 H Pulse Oximetry 96 98 Intake & Output 04/24/18 04/25/18 04/25/18 18:59 06:59 18:59 Intake Total 2099 / 2099 3415 / 3415 Output Total 1550 / 1550 Balance 2099 / 2099 1865 / 1865 Intake: IV 2099 / 2099 1615 / 1615 NS Inj 1,000 ML @ 100 mls/hr IV 2000 / 2000 1000 / 1000 .CONT .Q10H MER Rx#:[id number] Zosyn 3.375 GM Premix 50 ML @ 100 / 100 100 / 100 100 mls/hr IV.SIG Q6H MER Rx#: [id number] Vancomycin Inj 1,500 MG In NS 515 / 515 Inj 500 ML @ 250 mls/hr IV.SIG Q24H MER Rx#:[id number] Oral 1800 / 1800 Output: Urine 1550 / 1550 Other: # Bowel Movements 2 Exam: Prevena removed R thigh incisions c/d/i x 2 leaving ankle incision covered until tomorrow Strong PT signal in foot Laboratory Results - last 24 hr 04/24/18 04/24/18 04/25/18 08:15 13:06 05:52 WBC RBC Hgb Hct MCV MCH MCHC RDW Plt Count MPV Neut % (Auto) Lymph % (Auto) [place] % (Auto) Eos % (Auto) Baso % (Auto) Neut # (Auto) Lymph # (Auto) [place] # (Auto) Eos # (Auto) Baso # (Auto) WBC Differential Differential Comment BUN 24 H Creatinine Estimated GFR POC Glucose 160 H 181 H Calcium 8.6 04/25/18 04/25/18 06:58 06:58 WBC 11.1 H RBC 2.91 L Hgb 7.8 L Hct 22.1 L MCV 76.0 L MCH 26.8 L MCHC 35.3 RDW 17.9 H Plt Count 274 MPV 8.1 Neut % (Auto) 69.2 Lymph % (Auto) 14.1 [place] % (Auto) 12.5 H Eos % (Auto) 3.7 Baso % (Auto) 0.5 Neut # (Auto) 7.7 Lymph # (Auto) 1.6 [place] # (Auto) 1.4 H Eos # (Auto) 0.4 Baso # (Auto) 0.1 WBC Differential . Differential Comment Auto diff final BUN Creatinine 1.54 H Estimated GFR 60 L POC Glucose Calcium Assessment and Plan - Assessment (1) PAD (peripheral artery disease) Code(s): I73.9 - Peripheral vascular disease, unspecified Status: Acute - Plan POD#3 s/p redo R fem-PT with patch 1. OOB TC ok 2. pain control 3. Defer to podiatry re: foot; ok to have anything given pedal perfusion by exam
[2018-04-25] MEDS: amLODIPine 10 MG Tablet PO SCH (09:08)
[2018-04-25] MEDS: Gabapentin 300 MG Capsule PO SCH ×3 (09:08→18:44)
[2018-04-25] MEDS: Lisinopril 20 MG Tablet PO SCH ×2 (09:08→21:12)
[2018-04-25] MEDS: Morphine Inj 4 MG/ML Vial IV.PUSH PRN ×3 (09:17→21:12)
[2018-04-25] MEDS ORDERED: Bisacodyl 10 MG Supp RECTAL PRN (09:21)
[2018-04-25] MEDS ORDERED: Pharmacy Ordered Lab Info OTHER ONE (17:45)
[2018-04-25 18:33] LABS: Calcium 8.7 mg/dL (8.5-10.1); Carbon Dioxide 18.5 meq/L (21.0-32.0); Potassium 4.2 meq/L (3.5-5.1)
[2018-04-25 18:36] LABS: Vancomycin,Trough 12.3 mcg/mL (5.0-10.0)
[2018-04-25] MEDS: Vancomycin Inj 1,500 MG in Sodium Chlor 0.9% Inj 500 ML IV.SIG SCH (19:06)
[2018-04-25] MEDS: Senna/Docusate Sodium 8.6/50 MG Tablet PO SCH (21:13)
[2018-04-26] MEDS: Insulin NovoLOG Aspart Correctional Sugar Inj SQ SCH ×7 (02:47→18:23)
[2018-04-26] MEDS: Piperacil/Tazo 3.375 GM Premix 50 ML IV.SIG SCH ×3 (03:03→14:52)
[2018-04-26 07:40] LABS: Baso % (Auto) 0.2 % (0.0-2.0); Eos # (Auto) 0.6 th/mm3 (0.0-0.4); Eos % (Auto) 5.3 % (0.0-4.0); Hematocrit 25.5 % (39.0-51.0); Hemoglobin 8.4 gm/dL (13.0-17.0); Lymph # (Auto) 1.6 th/mm3 (1.0-4.8); Lymph % (Auto) 15.2 % (9.0-44.0); Mean Corpuscular Volume 75.8 fL (80.0-100.0); Mono # (Auto) 1.3 th/mm3 (0.0-0.9); Neut # (Auto) 7.1 th/mm3 (1.8-7.7); Neut % (Auto) 67.3 % (16.0-70.0); Platelet Count 357 th/mm3 (150-450); Red Blood Count 3.36 mil/mm3 (4.50-5.90); Red Cell Distribution Width 17.7 % (11.6-17.2); White Blood Count 10.5 th/mm3 (4.0-11.0)
[2018-04-26 07:55] LABS: Calcium 9.3 mg/dL (8.5-10.1); Carbon Dioxide 27.6 meq/L (21.0-32.0); Potassium 3.9 meq/L (3.5-5.1)
[2018-04-26] MEDS: Heparin - SQ 10,000 UNITS/ML Vial SQ SCH ×2 (10:14→20:38)
[2018-04-26] MEDS: Gabapentin 300 MG Capsule PO SCH ×3 (10:15→17:29)
[2018-04-26] MEDS: Insulin Detemir Inj 1,000 UNIT/10 ML Vial SQ SCH ×2 (10:15→20:38)
[2018-04-26] MEDS: Senna/Docusate Sodium 8.6/50 MG Tablet PO SCH ×2 (10:16→20:37)
[2018-04-26] MEDS: Lisinopril 20 MG Tablet PO SCH ×2 (10:16→20:37)
[2018-04-26] MEDS: amLODIPine 10 MG Tablet PO SCH (10:16)
[2018-04-26] MEDS: Sod Chloride 0.9% Inj 1,000 ML IV.CONT SCH ×2 (10:17→20:39)
--- NOTE | 2018-04-26 10:46 | P.PN ---
Subjective Interval history: In bed however he is able to ambulate today Still no BM and belly is very distended. Passing gas Will do KUB Pain in his right leg improving Difficult IV site to obtain, vasc consulted Kidney function improving some Physical Exam Vital signs: Vital Signs 04/25/18 12:00 04/25/18 16:00 04/25/18 20:00 Temperature 98.5 F 98.2 F 98.4 F Pulse Rate 81 86 88 Respiratory Rate 16 19 18 Blood Pressure 135/65 148/79 H 161/81 H Pulse Oximetry 97 95 96 04/25/18 23:14 04/26/18 00:00 Temperature 98.1 F Pulse Rate 86 Respiratory Rate 20 18 Blood Pressure 160/80 H Pulse Oximetry 96 Intake & Output 04/25/18 04/26/18 04/26/18 18:59 06:59 18:59 Intake Total 1195 / 1195 1515 / 1515 Output Total 1000 / 1000 Balance 1195 / 1195 515 / 515 Intake: IV 600 / 600 515 / 515 NS Inj 1,000 ML @ 100 mls/hr IV 500 / 500 .CONT .Q10H MER Rx#:[id number] Zosyn 3.375 GM Premix 50 ML @ 100 / 100 100 mls/hr IV.SIG Q6H MER Rx#: [id number] Vancomycin Inj 1,500 MG In NS 515 / 515 Inj 500 ML @ 250 mls/hr IV.SIG Q24H MER Rx#:[id number] Oral 595 / 595 1000 / 1000 Output: Urine 1000 / 1000 Other: # Voids 3 2 Date of Last Bowel Movement 04/21/18 # Bowel Movements 0 1 Narrative: GENERAL: Obese. Well-developed patient, in no apparent distress. SKIN: Warm and dry. HEENT: Normocephalic. Pupils equal round and reactive. Nose without bleeding. Airway patent. NECK: Trachea midline. Supple. CARDIOVASCULAR: Regular rate and rhythm without murmurs, gallops, or rubs. RESPIRATORY: Diminished bases. No wheezes, rales, or rhonchi. GASTROINTESTINAL: Abdomen soft, non-tender, nondistended. Bowel Sounds normoactive x4. MUSCULOSKELETAL: Extremities without clubbing, Right foot dressed. and ankle. NEUROLOGICAL: Awake and alert. - Urinary Catheter Management Indwelling Urethral Catheter Cath placed during this visit: yes, but has since been removed by the nurse Reason for continuing: Decision to DC catheter Insertion date: 04/22/18 Insertion time: 11:00 Removal date: 04/23/18 Removal time: 09:15 Results - Labs CBC & Chem 7: 04/26/18 05:21 04/26/18 05:21 Laboratory Results - last 24 hr 04/24/18 04/25/18 04/25/18 19:26 01:25 12:37 WBC RBC Hgb Hct MCV MCH MCHC RDW Plt Count MPV Neut % (Auto) Lymph % (Auto) [place] % (Auto) Eos % (Auto) Baso % (Auto) Neut # (Auto) Lymph # (Auto) [place] # (Auto) Eos # (Auto) Baso # (Auto) WBC Differential Differential Comment Sodium Potassium Chloride Carbon Dioxide Anion Gap BUN Creatinine Estimated GFR POC Glucose 126 H 237 H 200 H Random Glucose Calcium Vancomycin Trough 04/25/18 04/25/18 04/26/18 17:37 18:06 02:39 WBC RBC Hgb Hct MCV MCH MCHC RDW Plt Count MPV Neut % (Auto) Lymph % (Auto) [place] % (Auto) Eos % (Auto) Baso % (Auto) Neut # (Auto) Lymph # (Auto) [place] # (Auto) Eos # (Auto) Baso # (Auto) WBC Differential Differential Comment Sodium 136 Potassium 4.2 Chloride 111 H Carbon Dioxide 18.5 L Anion Gap 7 BUN 25 H Creatinine 1.51 H Estimated GFR 62 L POC Glucose 168 H 102 Random Glucose 144 H Calcium 8.7 Vancomycin Trough 12.3 H 04/26/18 04/26/18 05:21 05:21 WBC 10.5 RBC 3.36 L Hgb 8.4 L Hct 25.5 L MCV 75.8 L MCH 25.0 L MCHC 33.0 RDW 17.7 H Plt Count 357 D MPV 8.0 Neut % (Auto) 67.3 Lymph % (Auto) 15.2 [place] % (Auto) 12.0 H Eos % (Auto) 5.3 H Baso % (Auto) 0.2 Neut # (Auto) 7.1 Lymph # (Auto) 1.6 [place] # (Auto) 1.3 H Eos # (Auto) 0.6 H Baso # (Auto) 0.0 WBC Differential . Differential Comment Auto diff final Sodium 143 Potassium 3.9 Chloride 108 H Carbon Dioxide 27.6 D Anion Gap 7 BUN 23 H Creatinine 1.30 Estimated GFR 73 L POC Glucose Random Glucose 72 L Calcium 9.3 Vancomycin Trough - Procedures DATE OF OPERATION: 04/15/2018 PREOPERATIVE DIAGNOSES: 1. Right extremity tissue loss. 2. Peripheral vascular disease. POSTOPERATIVE DIAGNOSES: 1. Right extremity tissue loss. 2. Peripheral vascular disease. PROCEDURE PERFORMED: Aortogram with right extremity angiogram. ATTENDING SURGEON: Moe Cullen MD Extremity Arterial Study 04/14/18 00:00 CONCLUSION: 1. Severe right lower extremity peripheral arterial disease with large component of small vessel disease. 2. Moderate range left lower extremity DARRIUS's with reduced TBI's consistent with component of small vessel disease. 3. Consider CT angiography for further evaluation. MRI ordered R foot CONCLUSION: 1. There is bone marrow edema with abnormal enhancement suspicious for osteomyelitis in the fifth metacarpal head, third metacarpal head, and proximal phalanx of the third digit. 2. Nonspecific marrow edema is present in the proximal phalanx of the fifth digit. 3. Diffuse subcutaneous edema with a wound along the dorsal aspect of the foot superficial to the distal third metacarpal and expected location of the distal fourth metacarpal. (1) PAD (peripheral artery disease) 04/22/18 Code(s): I73.9 - Peripheral vascular disease, unspecified Status: Acute - Plan NOS s/p R SFA to perimalleolar PT with vein patch 1. Pain control 2. BR until tomorrow (POD#1) 3. Bradford out tomorrow (POD#1) 4. Pulse/Doppler checks Date of procedure: 04/22/18 Procedure: 1. R SFA-PT bypass (cryo) 2. R PT vein patch 3. Redo bypass Implants: cryo vein Anesthesia: GETA Surgeon: Moe Cullen MD [employer] Loft Worker: Poornima Benton Estimated blood loss (mL): 200 IV fluids (mL): 2,000 Urine output (mL): 325 Pathology: none sent Operation and Findings: very diseased perimalleolar PT patch and bypass from SFA to PT Palpable graft pulse Assessment and Plan - Plan Patient is a 43 year old AA male with past medical history of diabetes, diabetic neuropathy, HTN, HLD, status post right lower extremity bypass graft Dr. Cullen, right fourth toe amputation by Dr. Gates who came into the hospital for evaluation of worsening right foot diabetic infection. SIRS, secondary to Right foot infection Diabetic foot infection Seen by Vascular surgery non palpable distal pulses as Per Vascular specialist Status post right lower extremity angiogram Severe right lower extremity peripheral arterial disease with large component of small vessel disease, Moderate range left lower extremity DARRIUS's with reduced TBI's proposal for R CLOTH STOCK SORTER to Perimalleolar PT bypass with Cryo. today status post Right Superficial Femoral Artery to perimalleolar PT with vein patch, as per Vascular specialist continue Pain control, Bradford out tomorrow. 5th toe cellulitis vs osteomyelitis -Meeting SIRS, Sepsis criteria -HR 97 WBC 11.9, ESR 102, C-reactive protein 10.70, creatinine 1.31 -Foot xray showed Stable examination with postsurgical changes not significantly changed -Previous cultures of the foot 04/08/18 -Enterococcus faecalis, pseudomonas aeruginosa -he was placed on ampicillin, Levaquin based on sensitivities -Vancomycin, Zosyn given in the ED. today he has grown Group D Enterococcus already removed Zosyn and continued on Vancomycin. - s/p redo R fem-PT with patch on 04/22/[address] Alyse malone surgeon - Podiatry to debride/resect foot. Pain management per surgeon Gas retention: symethicone Constipation: bowel regimen. Abdominal distention: Will do KUB as patient with abdominal distention DM 2, insulin-dependent uncontrolled started on Levemir and continue sliding scale to medium dose. -Keep blood sugar below 180 gr/dl Levemir 25 BID, medium sliding scale, scheduled 5 units pre meal. uncontrolled for surgery. HTN Uncontrolled Amlodipine to 10 mg, add HCTZ 12.5 mg daily, Lisinopril 40 mg BID and on Clonidine 0.3 every 8 hours. HLD continue Home medicines. Acute kidney injury -Baseline creatinine 0.85- Cr is worsening. Continue IVF Obesity strongly recommended diet and exercise. DVT prop SCD Heparin Code Status: Full code. Discussed Condition With: patient and nurse Miss Rand. Discharge Planning: once cleared by specialists. Plan for podiatry to debride/ resect foot
--- NOTE | 2018-04-26 12:15 | XR ---
EXAM DATE: 04/26/2018 11:56 AM EDT AGE/SEX: 43 years / Male INDICATIONS: Abdominal distention. CLINICAL DATA: This is the patient's initial encounter. Patient reports that signs and symptoms have been present for 4 - 6 days and indicates a pain score of 0/10. MEDICAL/SURGICAL HISTORY: . Hypertension. Diabetes. Hyperlipidemia. . CABG. Toe amputation. L eft ankle arthoplasty. COMPARISON: [facility] [place], ABDOMEN KUB ONLY, 01/17/2018. . FINDINGS: The abdominal bowel gas pattern is normal. No abnormal masses, calcifications, or organomegaly is s een. The osseous structures are unremarkable. A moderate amount of stool is seen within the transver se colon. CONCLUSION: Moderate stool in the colon. Electronically signed by: Yair Morgan MD 04/26/2018 12:14 PM EDT
[2018-04-26] MEDS: Morphine Inj 4 MG/ML Vial IV.PUSH PRN ×3 (12:42→21:16)
[2018-04-26] MEDS ORDERED: Morphine Inj 4 MG/ML Vial IM PRN (13:03)
[2018-04-26] MEDS: Vancomycin Inj 1,500 MG in Sodium Chlor 0.9% Inj 500 ML IV.SIG SCH (17:32)
[2018-04-26] MEDS ORDERED: Pharmacy Ordered Lab Info OTHER SCH (17:45)
[2018-04-27] MEDS: Morphine Inj 4 MG/ML Vial IV.PUSH PRN ×4 (03:14→23:59)
[2018-04-27] MEDS: Insulin NovoLOG Aspart Correctional Sugar Inj SQ SCH ×7 (03:19→18:35)
[2018-04-27 04:19] LABS: Baso # (Auto) 0.1 th/mm3 (0.0-0.2); Baso % (Auto) 0.5 % (0.0-2.0); Eos # (Auto) 0.6 th/mm3 (0.0-0.4); Eos % (Auto) 5.5 % (0.0-4.0); Hematocrit 23.9 % (39.0-51.0); Hemoglobin 8.1 gm/dL (13.0-17.0); Lymph # (Auto) 1.9 th/mm3 (1.0-4.8); Lymph % (Auto) 17.2 % (9.0-44.0); Mean Corpuscular HGB Conc 34.1 % (32.0-36.0); Mean Corpuscular Hemoglobin 25.8 pg (27.0-34.0); Mean Corpuscular Volume 75.7 fL (80.0-100.0); Mean Platelet Volume 7.7 fL (7.0-11.0); Mono # (Auto) 1.1 th/mm3 (0.0-0.9); Mono % (Auto) 10.1 % (0.0-8.0); Neut # (Auto) 7.3 th/mm3 (1.8-7.7); Neut % (Auto) 66.7 % (16.0-70.0); Platelet Count 372 th/mm3 (150-450); Red Blood Count 3.15 mil/mm3 (4.50-5.90); Red Cell Distribution Width 17.8 % (11.6-17.2)
[2018-04-27 04:24] LABS: Carbon Dioxide 24.8 meq/L (21.0-32.0); Potassium 3.9 meq/L (3.5-5.1)
[2018-04-27 04:25] LABS: Vancomycin,Trough 21.4 mcg/mL (5.0-10.0)
[2018-04-27] MEDS ORDERED: Pharmacy Ordered Lab Info OTHER ONE (05:45)
[2018-04-27] MEDS: Senna/Docusate Sodium 8.6/50 MG Tablet PO SCH ×2 (08:53→20:35)
[2018-04-27] MEDS: amLODIPine 10 MG Tablet PO SCH (08:53)
[2018-04-27] MEDS: Gabapentin 300 MG Capsule PO SCH ×3 (08:53→18:17)
[2018-04-27] MEDS: Lisinopril 20 MG Tablet PO SCH ×2 (08:53→20:32)
[2018-04-27] MEDS: Heparin - SQ 10,000 UNITS/ML Vial SQ SCH ×2 (08:54→20:33)
[2018-04-27] MEDS: Insulin Detemir Inj 1,000 UNIT/10 ML Vial SQ SCH ×2 (08:54→20:42)
[2018-04-27] MEDS: Sod Chloride 0.9% Inj 1,000 ML IV.CONT SCH (08:55)
--- NOTE | 2018-04-27 10:34 | P.PN ---
Subjective Interval history: Follow-up visit for right diabetic foot ulcer, PVD and ALVERTO. Patient seen and examined resting in bed comfortably, appears to be in no acute distress. Complains of right lower extremity pain although tolerable. He denies any nausea, vomiting, diarrhea, cough, shortness of breath or chest pain. He reports constipation, positive flatus. Significant other also reports she has noticed increased swelling as well as swelling, concerns for fluid overload. Physical Exam Vital signs: Vital Signs 04/26/18 12:00 04/26/18 16:00 04/26/18 20:00 Temperature 97.9 F 98.0 F 97.7 F Pulse Rate 83 80 94 H Respiratory Rate 18 18 20 Blood Pressure 182/87 H 161/81 H 184/86 H Pulse Oximetry 96 96 96 04/26/18 22:48 04/27/18 00:00 04/27/18 00:45 Temperature 97.4 F L Pulse Rate 87 Respiratory Rate 20 20 20 Blood Pressure 160/87 H Pulse Oximetry 96 04/27/18 05:12 04/27/18 08:00 Temperature 98.0 F Pulse Rate 80 Respiratory Rate 20 18 Blood Pressure 138/73 Pulse Oximetry 97 Intake & Output 04/26/18 04/27/18 04/27/18 18:59 06:59 18:59 Intake Total 820 / 820 995 / 995 Output Total 950 / 950 1300 / 1300 Balance -130 / -130 -305 / -305 Weight 122.7 kg Intake: IV 100 / 100 515 / 515 Zosyn 3.375 GM Premix 50 ML @ 100 / 100 100 mls/hr IV.SIG Q6H MER Rx#: [id number] Vancomycin Inj 1,500 MG In NS 515 / 515 Inj 500 ML @ 250 mls/hr IV.SIG Q24H MER Rx#:[id number] Oral 720 / 720 480 / 480 Output: Urine 950 / 950 1300 / 1300 Other: Date of Last Bowel Movement 04/26/18 # Bowel Movements 0 1 Narrative: GENERAL: Obese. Well-developed patient, in no apparent distress. SKIN: Warm and dry. HEENT: Normocephalic. Pupils equal round and reactive. Nose without bleeding. Airway patent. NECK: Trachea midline. Supple. CARDIOVASCULAR: Regular rate and rhythm without murmurs, gallops, or rubs. RESPIRATORY: Diminished bases, likely due to body habitus. No wheezes, rales, or rhonchi. GASTROINTESTINAL: Abdomen distended, non-tender, hypoactive bowel sounds. MUSCULOSKELETAL: Extremities without clubbing, Right foot dressed. Bilateral lower extremity edema +1 NEUROLOGICAL: Awake and alert. - Urinary Catheter Management Indwelling Urethral Catheter Cath placed during this visit: yes, but has since been removed by the nurse Reason for continuing: Decision to DC catheter Insertion date: 04/22/18 Insertion time: 11:00 Removal date: 04/23/18 Removal time: 09:15 Results - Labs CBC & Chem 7: 04/27/18 03:38 04/27/18 03:25 Laboratory Results - last 24 hr 04/26/18 04/26/18 04/27/18 06:27 12:41 03:19 WBC RBC Hgb Hct MCV MCH MCHC RDW Plt Count MPV Neut % (Auto) Lymph % (Auto) [place] % (Auto) Eos % (Auto) Baso % (Auto) Neut # (Auto) Lymph # (Auto) [place] # (Auto) Eos # (Auto) Baso # (Auto) WBC Differential Differential Comment Sodium Potassium Chloride Carbon Dioxide Anion Gap BUN Creatinine Estimated GFR POC Glucose 111 H 111 H 104 Random Glucose Calcium Vancomycin Trough 04/27/18 04/27/18 04/27/18 03:25 03:38 06:25 WBC 11.0 RBC 3.15 L Hgb 8.1 L Hct 23.9 L MCV 75.7 L MCH 25.8 L MCHC 34.1 RDW 17.8 H Plt Count 372 MPV 7.7 Neut % (Auto) 66.7 Lymph % (Auto) 17.2 [place] % (Auto) 10.1 H Eos % (Auto) 5.5 H Baso % (Auto) 0.5 Neut # (Auto) 7.3 Lymph # (Auto) 1.9 [place] # (Auto) 1.1 H Eos # (Auto) 0.6 H Baso # (Auto) 0.1 WBC Differential . Differential Comment Auto diff final Sodium 143 Potassium 3.9 Chloride 109 H Carbon Dioxide 24.8 Anion Gap 9 BUN 20 H Creatinine 1.25 Estimated GFR 77 L POC Glucose 72 Random Glucose 81 Calcium 9.0 Vancomycin Trough 21.4 H - Imaging Impressions Abdomen X-Ray 04/26/18 00:00 CONCLUSION: Moderate stool in the colon. - Procedures DATE OF OPERATION: 04/15/2018 PREOPERATIVE DIAGNOSES: 1. Right extremity tissue loss. 2. Peripheral vascular disease. POSTOPERATIVE DIAGNOSES: 1. Right extremity tissue loss. 2. Peripheral vascular disease. PROCEDURE PERFORMED: Aortogram with right extremity angiogram. ATTENDING SURGEON: Moe Cullen MD Extremity Arterial Study 04/14/18 00:00 CONCLUSION: 1. Severe right lower extremity peripheral arterial disease with large component of small vessel disease. 2. Moderate range left lower extremity DARRIUS's with reduced TBI's consistent with component of small vessel disease. 3. Consider CT angiography for further evaluation. MRI ordered R foot CONCLUSION: 1. There is bone marrow edema with abnormal enhancement suspicious for osteomyelitis in the fifth metacarpal head, third metacarpal head, and proximal phalanx of the third digit. 2. Nonspecific marrow edema is present in the proximal phalanx of the fifth digit. 3. Diffuse subcutaneous edema with a wound along the dorsal aspect of the foot superficial to the distal third metacarpal and expected location of the distal fourth metacarpal. (1) PAD (peripheral artery disease) 04/22/18 Code(s): I73.9 - Peripheral vascular disease, unspecified Status: Acute - Plan NOS s/p R SFA to perimalleolar PT with vein patch 1. Pain control 2. BR until tomorrow (POD#1) 3. [place] out tomorrow (POD#1) 4. Pulse/Doppler checks Date of procedure: 04/22/18 Procedure: 1. R SFA-PT bypass (cryo) 2. R PT vein patch 3. Redo bypass Implants: cryo vein Anesthesia: GETA Surgeon: Moe Cullen MD Analytics Specialist: Poornima Benton Estimated blood loss (mL): 200 IV fluids (mL): 2,000 Urine output (mL): 325 Pathology: none sent Operation and Findings: very diseased perimalleolar PT patch and bypass from SFA to PT Palpable graft pulse Assessment and Plan - Plan Patient is a 43 year old AA male with past medical history of diabetes, diabetic neuropathy, HTN, HLD, status post right lower extremity bypass graft Dr. Cullen, right fourth toe amputation by Dr. Gates who came into the hospital for evaluation of worsening right foot diabetic infection. SIRS, secondary to Right foot infection Diabetic foot infection Seen by Vascular surgery non palpable distal pulses as Per Vascular specialist Status post right lower extremity angiogram Severe right lower extremity peripheral arterial disease with large component of small vessel disease, Moderate range left lower extremity DARRIUS's with reduced TBI's s/p Right Superficial Femoral Artery to perimalleolar PT with vein patch, as per Vascular specialist. 5th toe cellulitis vs osteomyelitis -Meeting SIRS, Sepsis criteria -HR 97 WBC 11.9, ESR 102, C-reactive protein 10.70, creatinine 1.31 -Foot xray showed Stable examination with postsurgical changes not significantly changed -Previous cultures of the foot 04/08/18 -Enterococcus faecalis, pseudomonas aeruginosa -he was placed on ampicillin, Levaquin based on sensitivities -Vancomycin, Zosyn given in the ED. culture group D Enterococcus Zosyn was removed and continued on Vancomycin. -ID consult, greatly appreciate assistance. -s/p redo R fem-PT with patch on 04/22/[address] Alyse malone surgeon, now with strong distal pulses and Doppler, okay to have been given to the perfusion - Podiatry plans on doing metatarsal amputation of right foot tomorrow. -Patient has been medically stable, will obtain baseline EKG and chest x-ray prior to her surgery tomorrow. IV fluids on hold due to lower extremity and scrotal edema. Abdominal distention Constipation: KUB completed on 04/26 with moderate amount of stool in the colon, continue bowel regimen, soapsuds enema today, encouraged to increase mobility. DM 2, insulin-dependent uncontrolled started on Levemir and continue sliding scale to medium dose. -Keep blood sugar below 180 gr/dl Levemir 25 BID, medium sliding scale, scheduled 5 units pre meal. -Blood sugars today have been stable and much better controlled. HTN Uncontrolled -Currently on amlodipine to 10 mg, add HCTZ 12.5 mg daily, Lisinopril 40 mg BID and on Clonidine 0.3 every 8 hours. -Blood pressure stable, continue to monitor. HLD continue Home medicines. Acute kidney injury -Baseline creatinine 0.85- Cr is worsening. s/p IV fluids, improvement in creatinine. Discussed holding off IV fluids for the moment secondary to increase leg and scrotal edema. -Continue to monitor renal function closely. Obesity strongly recommended diet and exercise. DVT prop SCD Heparin Discussed Condition With: Patient, family at bedside, RN, Dr. Bolanos, Dr. Randall, podiatry. Discharge Planning: Most likely will be discharging home, scheduled for surgery tomorrow.
--- NOTE | 2018-04-27 10:54 | P.PNVS ---
Subjective Post Op Day #: 5 Procedure: R SFA-PT with vein patch Subjective/Hospital Course: 43/M s/p R LE distal bypass (redo) POD 5 Pt ambulating w/ PT C/o mild R LE incisional pain Incisions intact w/o R/D/S/O Removed R LE post operative dressing Objective Vital Signs / I&O: Vital Signs 04/26/18 12:00 04/26/18 16:00 04/26/18 20:00 Temperature 97.9 F 98.0 F 97.7 F Pulse Rate 83 80 94 H Respiratory Rate 18 18 20 Blood Pressure 182/87 H 161/81 H 184/86 H Pulse Oximetry 96 96 96 04/26/18 22:48 04/27/18 00:00 04/27/18 00:45 Temperature 97.4 F L Pulse Rate 87 Respiratory Rate 20 20 20 Blood Pressure 160/87 H Pulse Oximetry 96 04/27/18 05:12 04/27/18 08:00 Temperature 98.0 F Pulse Rate 80 Respiratory Rate 20 18 Blood Pressure 138/73 Pulse Oximetry 97 Intake & Output 04/26/18 04/27/18 04/27/18 18:59 06:59 18:59 Intake Total 820 / 820 995 / 995 Output Total 950 / 950 1300 / 1300 Balance -130 / -130 -305 / -305 Weight 122.7 kg Intake: IV 100 / 100 515 / 515 Zosyn 3.375 GM Premix 50 ML @ 100 / 100 100 mls/hr IV.SIG Q6H MER Rx#: [id number] Vancomycin Inj 1,500 MG In NS 515 / 515 Inj 500 ML @ 250 mls/hr IV.SIG Q24H MER Rx#:[id number] Oral 720 / 720 480 / 480 Output: Urine 950 / 950 1300 / 1300 Other: Date of Last Bowel Movement 04/26/18 # Bowel Movements 0 1 Exam: LE warm w/ motor intact Biphasic R DP/PT heard via Doppler Incisions to R groin/ R LE/ R medial aspect of ankle intact w/o R/D/S/O Laboratory Results - last 24 hr 04/26/18 04/26/18 04/27/18 06:27 12:41 03:19 WBC RBC Hgb Hct MCV MCH MCHC RDW Plt Count MPV Neut % (Auto) Lymph % (Auto) [place] % (Auto) Eos % (Auto) Baso % (Auto) Neut # (Auto) Lymph # (Auto) [place] # (Auto) Eos # (Auto) Baso # (Auto) WBC Differential Differential Comment Sodium Potassium Chloride Carbon Dioxide Anion Gap BUN Creatinine Estimated GFR POC Glucose 111 H 111 H 104 Random Glucose Calcium Vancomycin Trough 04/27/18 04/27/18 04/27/18 03:25 03:38 06:25 WBC 11.0 RBC 3.15 L Hgb 8.1 L Hct 23.9 L MCV 75.7 L MCH 25.8 L MCHC 34.1 RDW 17.8 H Plt Count 372 MPV 7.7 Neut % (Auto) 66.7 Lymph % (Auto) 17.2 [place] % (Auto) 10.1 H Eos % (Auto) 5.5 H Baso % (Auto) 0.5 Neut # (Auto) 7.3 Lymph # (Auto) 1.9 [place] # (Auto) 1.1 H Eos # (Auto) 0.6 H Baso # (Auto) 0.1 WBC Differential . Differential Comment Auto diff final Sodium 143 Potassium 3.9 Chloride 109 H Carbon Dioxide 24.8 Anion Gap 9 BUN 20 H Creatinine 1.25 Estimated GFR 77 L POC Glucose 72 Random Glucose 81 Calcium 9.0 Vancomycin Trough 21.4 H Assessment and Plan - Assessment (1) PAD (peripheral artery disease) Code(s): I73.9 - Peripheral vascular disease, unspecified Status: Acute - Plan POD#5 Pt s/p redo R fem-PT with patch Pt looks well Pt w/ strong distal pulses heard via Doppler Plan Continue PT/OOB TC/WBAT Continue pain control D/C planning Kasey Caldwell NP [facility] [phone] Discharge Planning: D/C planning Will arrange post op f/u in a few weeks
[2018-04-27] MEDS ORDERED: Vancomycin Inj 1,500 MG in Sodium Chlor 0.9% Inj 500 ML IV.SIG SCH (15:00)
--- NOTE | 2018-04-27 17:04 | P.CONID ---
History of Present Illness Service: ID Consult date: 04/27/18 Requesting Physician: Lizbeth Lord Reason for Consult: R foot osteo Primary Care Provider: UNKNOWN Chief Complaint: "Foot infection" History of Present Illness: 43 yo pt known to me from his previosu admission in December He presented back then with porly controlled DM with HbA1C of 14 and tobaccoism He was diagnosed with severe PVD of RLE He susscefully healed the wound of his R foot but is reopened again 2 weeks ago MRI showed There is bone marrow edema with abnormal enhancement suspicious for osteomyelitis in the fifth metacarpal head, third metacarpal head, and proximal phalanx of the third digit.. Nonspecific marrow edema is present in the proximal phalanx of the fifth digit. Arteroial study showed Severe right lower extremity peripheral arterial disease with large component of small vessel disease He presented with dry gangrenous changes in the 5the digit anf unhealing wound of the top of his R foot Pt s/p redo R fem-PT with patch Review of Systems All other systems reviewed negative except as stated in HPI PMFSH - History History Provided By: Patient - Medical History Medical History: Medical History (Last Reviewed 04/27/18 @ 16:51 by Janeen Bolanos MD) HLD (hyperlipidemia) Amputated toe Diabetes Hypertension - Surgical History Surgical History: Surgical History (Last Reviewed 04/27/18 @ 16:51 by Janeen Bolanos MD) History of arthroplasty of left ankle Hx of CABG - Family History Family History: Family History (Last Reviewed 04/27/18 @ 16:51 by Janeen Bolanos MD) Mother DM type 2 (diabetes mellitus, type 2) Father DM type 2 (diabetes mellitus, type 2) - Tobacco History Second Hand Smoke Exposure: Yes Tobacco Use In Past 30 Days: Yes Smoking Status: Current every day smoker Tobacco Type: Cigarettes Packs Per Day: 0.5 - Alcohol History How Often Do You Have a Drink Containing Alcohol: Never - Substance Use History Substance History: No History of Abuse - Travel History Recent Travel in the [place] Within the Last 8 Weeks: No Recent Travel Out of the Country Within the Last 8 Weeks: No - Immunization History Tetanus Immunization: >5 Years Hx Influenza Vaccine This Season: No Medications and Allergies Active Medications: Active Medications Hydrocodone Bitart/Acetaminophen ([place] 5/325) 1 tab PO Q4H PRN PRN Reason: PAIN SCALE 3-6 Al Hydroxide/Mg Hydroxide (Milk Of Sherrie Verdugoq) 30 ml PO Q12H PRN PRN Reason: Mild Constipation Last Admin: 04/27/18 09:01 Dose: 30 ml Amlodipine Besylate (Norvasc) 10 mg PO DAILY [facility] Last Admin: 04/27/18 08:53 Dose: 10 mg Aspirin (Ecotrin) 81 mg PO DAILY [facility] Last Admin: 04/27/18 08:53 Dose: 81 mg Atorvastatin Calcium (Lipitor) 40 mg PO DAILY [facility] Last Admin: 04/27/18 08:53 Dose: 40 mg Bisacodyl (Dulcolax Supp) 10 mg RECTAL DAILY PRN PRN Reason: SEVERE CONSITIPATION Last Admin: 04/26/18 17:30 Dose: 10 mg Clonidine HCl (Catapres) 0.3 mg PO Q8H [facility] Last Admin: 04/27/18 12:28 Dose: 0.3 mg Dextrose (D50w Vial) 50 ml IV.PUSH UNSCH PRN PRN Reason: PER HYPOGLYCEMIA PROTOCOL Enalaprilat (Vasotec Inj) 1.25 mg IV.PUSH Q6H PRN PRN Reason: SBP>160, DBP>90 Last Admin: 04/22/18 01:30 Dose: 1.25 mg Gabapentin (Neurontin) 300 mg PO TID [facility] Last Admin: 04/27/18 12:28 Dose: 300 mg Glucagon (Glucagon Inj) 1 mg OTHER PRN PRN PRN Reason: for Hypoglycemia Protocol Glycerin (Glycerin Adult Supp) 2 gm RECTAL DAILY PRN PRN Reason: CONSTIPATION Heparin Sodium (Porcine) (Heparin Inj) 5,000 units SQ Q12HR [facility] Last Admin: 04/27/18 08:54 Dose: 5,000 units Hydrochlorothiazide (Microzide) 12.5 mg PO DAILY [facility] Last Admin: 04/27/18 08:53 Dose: 12.5 mg Hydromorphone HCl (Dilaudid) 2 mg PO Q6H PRN PRN Reason: PAIN SCALE 7 TO 10 SEVERE Last Admin: 04/27/18 09:01 Dose: 2 mg Vancomycin HCl 1,500 mg/ (Sodium Chloride) 515 mls @ 250 mls/hr IV.SIG Q12H [facility] Insulin Aspart (Novolog Insulin Correctional Sugar Inj) 0 unit SQ 07,13,19, [facility]; Protocol Last Admin: 04/27/18 12:29 Dose: Not Given Insulin Aspart (Novolog Insulin Correctional Sugar Inj) 5 unit SQ TIDAC [facility]; Protocol Last Admin: 04/27/18 12:15 Dose: Not Given Insulin Detemir (Levemir Inj) 25 unit SQ BID [facility]; Protocol Last Admin: 04/27/18 08:54 Dose: 25 unit Lactulose (Lactulose Liq) 30 ml PO DAILY PRN PRN Reason: CONSTIPATION Last Admin: 04/26/18 02:44 Dose: 30 ml Lisinopril (Prinivil) 40 mg PO BID [facility] Last Admin: 04/27/18 08:53 Dose: 40 mg Miscellaneous Information ([facility] Ordered Lab Info) 1 each OTHER ONCE [facility] Morphine Sulfate (Morphine Inj) 4 mg IV.PUSH Q3H PRN PRN Reason: BREAKTHROUGH PAIN Last Admin: 04/27/18 12:33 Dose: 4 mg Morphine Sulfate (Morphine Inj) 4 mg IM Q4H PRN PRN Reason: SEE LABEL COMMENTS Naloxone HCl (Narcan Inj) 0.4 mg IV.PUSH UNSCH PRN PRN Reason: SEE LABEL COMMENTS Ondansetron HCl (Zofran Inj) 4 mg IV.PUSH Q6H PRN PRN Reason: Nausea, vomiting Pharmacy Profile Note (Vancomycin Consult Pharmacy) 1 each OTHER UNSCH PRN PRN Reason: Pharmacy to dose Senna/Docusate Sodium (Rtixie-Colace) 1 tab PO BID [facility] Last Admin: 04/27/18 08:53 Dose: 1 tab Sennosides (Senokot) 17.2 mg PO Q12H PRN PRN Reason: Moderate Constipation Last Admin: 04/26/18 10:17 Dose: 17.2 mg Simethicone (Phazyme Chew) 125 mg PO TID PRN PRN Reason: GAS RETENTION Last Admin: 04/24/18 11:03 Dose: 125 mg Sodium Chloride (Ns Flush) 2 ml IV.FLUSH PRN PRN PRN Reason: FLUSH AFTER USING IV ACCESS Sodium Chloride (Ns Flush) 2 ml IV.FLUSH BID [facility] Last Admin: 04/27/18 08:56 Dose: Not Given Allergies Allergy/AdvReac Type Severity Reaction Status Date / Time No Known Allergies Allergy Verified 04/13/18 12:35 Home Medications Medication Instructions Recorded Confirmed Type amlodipine 5 mg PO DAILY 02/21/18 04/13/18 History amoxicillin 500 mg PO Q8HR 02/21/18 04/13/18 History aspirin [Aspirin Low Dose] 81 mg PO DAILY 02/21/18 04/13/18 History atorvastatin 40 mg PO DAILY 02/21/18 04/13/18 History clopidogrel [Plavix] 75 mg PO DAILY 02/21/18 04/13/18 History gabapentin [Neurontin] 300 mg PO TID 02/21/18 04/13/18 History insulin regular human 40 unit SUB-Q BID 02/21/18 04/13/18 History lisinopril 10 mg PO DAILY 02/21/18 04/13/18 History oxycodone 5 mg PO Q4-6H 02/21/18 04/13/18 History levofloxacin [Levaquin] 750 mg PO DAILY 04/13/18 04/13/18 History Exam Vital signs: Vital Signs 04/26/18 20:00 04/26/18 22:48 04/27/18 00:00 Temperature 97.7 F 97.4 F L Pulse Rate 94 H 87 Respiratory Rate 20 20 20 Blood Pressure 184/86 H 160/87 H Pulse Oximetry 96 96 04/27/18 00:45 04/27/18 05:12 04/27/18 08:00 Temperature 98.0 F Pulse Rate 80 Respiratory Rate 20 20 18 Blood Pressure 138/73 Pulse Oximetry 97 04/27/18 12:00 Temperature 98.3 F Pulse Rate 86 Respiratory Rate 20 Blood Pressure 132/66 Pulse Oximetry 97 Intake & Output 04/26/18 04/27/18 04/27/18 18:59 06:59 18:59 Intake Total 820 / 820 995 / 995 920 / 920 Output Total 950 / 950 1300 / 1300 Balance -130 / -130 -305 / -305 920 / 920 Weight 122.7 kg Intake: IV 100 / 100 515 / 515 920 / 920 NS Inj 1,000 ML @ 84 mls/hr IV. 920 / 920 CONT .[id number] MER Rx#:[id number] Zosyn 3.375 GM Premix 50 ML @ 100 / 100 100 mls/hr IV.SIG Q6H MER Rx#: [id number] Vancomycin Inj 1,500 MG In NS 515 / 515 Inj 500 ML @ 250 mls/hr IV.SIG Q24H MER Rx#:[id number] Oral 720 / 720 480 / 480 Output: Urine 950 / 950 1300 / 1300 Other: Date of Last Bowel Movement 04/26/18 # Bowel Movements 0 1 - Constitutional no acute distress, morbidly obese - Routine HEENT Exam Head: Present: normocephalic, atraumatic Eye: Present: EOMI, PERRL ENT: Present: mucous membranes moist, oropharynx clear - Routine Neck Exam Present: supple, full ROM - Routine Respiratory Exam Present: decreased breath sounds, CTA bilaterally - Routine Cardiovascular Exam Present: RRR, S1, S2 Comments: no murmurs, rubs or gallops - Routine Abdominal Exam Present: soft, tenderness, distended Comments: no organomegaly, masses appreciated + abd wall is edematous - Routine Extremities Exam Present: edema (massive 4 + tight edema, more prominent on the RLE, 2+ on t LLE) , amputation (4th r toe) - Routine Skin Exam Present: lesions (stage IV wound with necrotic bed with visible tendons), gangrene (5th toe dry ) - Routine Neurological Exam Present: alert, oriented X3, CN II-XII intact, moving all extremities, vision grossly intact, hearing grossly intact, normal speech - Routine Psychiatric Exam Present: normal thought process, cooperative, anxious Comments: frustrated with his medical problems Results - Labs CBC & Chem 7: 04/30/18 04:08 04/30/18 04:08 Labs: Laboratory Results - last 24 hr 04/27/18 04/27/18 04/27/18 03:19 03:25 03:38 WBC 11.0 RBC 3.15 L Hgb 8.1 L Hct 23.9 L MCV 75.7 L MCH 25.8 L MCHC 34.1 RDW 17.8 H Plt Count 372 MPV 7.7 Neut % (Auto) 66.7 Lymph % (Auto) 17.2 [place] % (Auto) 10.1 H Eos % (Auto) 5.5 H Baso % (Auto) 0.5 Neut # (Auto) 7.3 Lymph # (Auto) 1.9 [place] # (Auto) 1.1 H Eos # (Auto) 0.6 H Baso # (Auto) 0.1 WBC Differential . Differential Comment Auto diff final Sodium 143 Potassium 3.9 Chloride 109 H Carbon Dioxide 24.8 Anion Gap 9 BUN 20 H Creatinine 1.25 Estimated GFR 77 L POC Glucose 104 Random Glucose 81 Calcium 9.0 Vancomycin Trough 21.4 H 04/27/18 04/27/18 06:25 12:11 WBC RBC Hgb Hct MCV MCH MCHC RDW Plt Count MPV Neut % (Auto) Lymph % (Auto) [place] % (Auto) Eos % (Auto) Baso % (Auto) Neut # (Auto) Lymph # (Auto) [place] # (Auto) Eos # (Auto) Baso # (Auto) WBC Differential Differential Comment Sodium Potassium Chloride Carbon Dioxide Anion Gap BUN Creatinine Estimated GFR POC Glucose 72 90 Random Glucose Calcium Vancomycin Trough - Imaging ITS Impressions Foot X-Ray 04/13/18 12:42 CONCLUSION: Stable examination with postsurgical changes not significantly changed. Extremity Arterial Study 04/14/18 00:00 CONCLUSION: 1. Severe right lower extremity peripheral arterial disease with large component of small vessel disease. 2. Moderate range left lower extremity DARRIUS's with reduced TBI's consistent with component of small vessel disease. 3. Consider CT angiography for further evaluation. Foot MRI 04/17/18 00:00 CONCLUSION: 1. There is bone marrow edema with abnormal enhancement suspicious for osteomyelitis in the fifth metacarpal head, third metacarpal head, and proximal phalanx of the third digit. 2. Nonspecific marrow edema is present in the proximal phalanx of the fifth digit. 3. Diffuse subcutaneous edema with a wound along the dorsal aspect of the foot superficial to the distal third metacarpal and expected location of the distal fourth metacarpal. Renal Ultrasound 04/20/18 00:00 CONCLUSION: 1. Limited evaluation secondary to body habitus. No evidence of renal artery stenosis Abdomen X-Ray 04/26/18 00:00 CONCLUSION: Moderate stool in the colon. Assessment and Plan - Plan PVD, both large and small vessel dz sp revasc Tobaccois - pt still smokes DM 5th digit vasc gangrene and osteo of R foot fifth metacarpal head, third metacarpal head, and proximal phalanx of the third digit. he grew enterococcus along with 3+ enteric GNBs will start Unasyn will ask uniform maker to sent clx
[2018-04-27] MEDS: Ampicillin/Sulbactam Inj 3 GM in Sodium Chloride 0.9% Inj 100 ML IV.SIG SCH ×2 (18:17→23:58)
--- NOTE | 2018-04-27 20:16 | P.PNPOD ---
Subjective Interval history: Patient seen at bedside this pm with family members. Patient with PVD and right foot osteomyelitis. Physical Exam Vital signs: Vital Signs 04/26/18 22:48 04/27/18 00:00 04/27/18 00:45 Temperature 97.4 F L Pulse Rate 87 Respiratory Rate 20 20 20 Blood Pressure 160/87 H Pulse Oximetry 96 04/27/18 05:12 04/27/18 08:00 04/27/18 12:00 Temperature 98.0 F 98.3 F Pulse Rate 80 86 Respiratory Rate 20 18 20 Blood Pressure 138/73 132/66 Pulse Oximetry 97 97 Intake & Output 04/27/18 04/27/18 04/28/18 06:59 18:59 06:59 Intake Total 995 / 995 2155 / 2155 Output Total 1300 / 1300 1200 / 1200 Balance -305 / -305 955 / 955 Weight 122.7 kg Intake: IV 515 / 515 1535 / 1535 NS Inj 1,000 ML @ 84 mls/hr IV. 920 / 920 CONT .[id number] MER Rx#:[id number] Unasyn Inj 3 GM In NS Inj 100 100 / 100 ML @ 200 mls/hr IV.SIG Q6H MER Rx#:[id number] Vancomycin Inj 1,500 MG In NS 515 / 515 515 / 515 Inj 500 ML @ 250 mls/hr IV.SIG Q12H MER Rx#:[id number] Oral 480 / 480 620 / 620 Output: Urine 1300 / 1300 1200 / 1200 Other: Date of Last Bowel Movement 04/26/18 # Bowel Movements 1 1 Narrative: RLE Warm to warm Intact medial incisions. Gangrene of the 5th digit, + exposed tendons of the 3rd -5th extensor tendons. No purulence. Medications and Allergies Active Medications: Active Medications Hydrocodone Bitart/Acetaminophen ([place] 5/325) 1 tab PO Q4H PRN PRN Reason: PAIN SCALE 3-6 Al Hydroxide/Mg Hydroxide (Milk Of Magnesia Liq) 30 ml PO Q12H PRN PRN Reason: Mild Constipation Last Admin: 04/27/18 09:01 Dose: 30 ml Amlodipine Besylate (Norvasc) 10 mg PO DAILY [facility] Last Admin: 04/27/18 08:53 Dose: 10 mg Aspirin (Ecotrin) 81 mg PO DAILY [facility] Last Admin: 04/27/18 08:53 Dose: 81 mg Atorvastatin Calcium (Lipitor) 40 mg PO DAILY [facility] Last Admin: 04/27/18 08:53 Dose: 40 mg Bisacodyl (Dulcolax Supp) 10 mg RECTAL DAILY PRN PRN Reason: SEVERE CONSITIPATION Last Admin: 04/26/18 17:30 Dose: 10 mg Clonidine HCl (Catapres) 0.3 mg PO Q8H [facility] Last Admin: 04/27/18 12:28 Dose: 0.3 mg Dextrose (D50w Vial) 50 ml IV.PUSH UNSCH PRN PRN Reason: PER HYPOGLYCEMIA PROTOCOL Enalaprilat (Vasotec Inj) 1.25 mg IV.PUSH Q6H PRN PRN Reason: SBP>160, DBP>90 Last Admin: 04/22/18 01:30 Dose: 1.25 mg Gabapentin (Neurontin) 300 mg PO TID [facility] Last Admin: 04/27/18 18:17 Dose: 300 mg Glucagon (Glucagon Inj) 1 mg OTHER PRN PRN PRN Reason: for Hypoglycemia Protocol Glycerin (Glycerin Adult Supp) 2 gm RECTAL DAILY PRN PRN Reason: CONSTIPATION Heparin Sodium (Porcine) (Heparin Inj) 5,000 units SQ Q12HR [facility] Last Admin: 04/27/18 08:54 Dose: 5,000 units Hydrochlorothiazide (Microzide) 12.5 mg PO DAILY [facility] Last Admin: 04/27/18 08:53 Dose: 12.5 mg Hydromorphone HCl (Dilaudid) 2 mg PO Q6H PRN PRN Reason: PAIN SCALE 7 TO 10 SEVERE Last Admin: 04/27/18 16:44 Dose: 2 mg Ampicillin Sodium/Sulbactam (Sodium 3 gm/ Sodium Chloride) 100 mls @ 200 mls/ hr IV.SIG Q6H [facility] Last Infusion: 04/27/18 18:49 Dose: Infused Insulin Aspart (Novolog Insulin Correctional Sugar Inj) 0 unit SQ 07,13,19,01 [facility]; Protocol Last Admin: 04/27/18 18:35 Dose: 2 unit Insulin Aspart (Novolog Insulin Correctional Sugar Inj) 5 unit SQ TIDAC [facility]; Protocol Last Admin: 04/27/18 16:45 Dose: 5 unit Insulin Detemir (Levemir Inj) 25 unit SQ BID [facility]; Protocol Last Admin: 04/27/18 08:54 Dose: 25 unit Lactulose (Lactulose Liq) 30 ml PO DAILY PRN PRN Reason: CONSTIPATION Last Admin: 04/26/18 02:44 Dose: 30 ml Lisinopril (Prinivil) 40 mg PO BID [facility] Last Admin: 04/27/18 08:53 Dose: 40 mg Miscellaneous Information ([facility] Ordered Lab Info) 1 each OTHER ONCE [facility] Morphine Sulfate (Morphine Inj) 4 mg IV.PUSH Q3H PRN PRN Reason: BREAKTHROUGH PAIN Last Admin: 04/27/18 12:33 Dose: 4 mg Morphine Sulfate (Morphine Inj) 4 mg IM Q4H PRN PRN Reason: SEE LABEL COMMENTS Naloxone HCl (Narcan Inj) 0.4 mg IV.PUSH UNSCH PRN PRN Reason: SEE LABEL COMMENTS Ondansetron HCl (Zofran Inj) 4 mg IV.PUSH Q6H PRN PRN Reason: Nausea, vomiting Senna/Docusate Sodium (Trixie-Colace) 1 tab PO BID [facility] Last Admin: 04/27/18 08:53 Dose: 1 tab Sennosides (Senokot) 17.2 mg PO Q12H PRN PRN Reason: Moderate Constipation Last Admin: 04/26/18 10:17 Dose: 17.2 mg Simethicone (Phazyme Chew) 125 mg PO TID PRN PRN Reason: GAS RETENTION Last Admin: 04/24/18 11:03 Dose: 125 mg Sodium Chloride (Ns Flush) 2 ml IV.FLUSH PRN PRN PRN Reason: FLUSH AFTER USING IV ACCESS Sodium Chloride (Ns Flush) 2 ml IV.FLUSH BID [facility] Last Admin: 04/27/18 08:56 Dose: Not Given Allergies Allergy/AdvReac Type Severity Reaction Status Date / Time No Known Allergies Allergy Verified 04/13/18 12:35 Home Medications Medication Instructions Recorded Confirmed Type amlodipine 5 mg PO DAILY 02/21/18 04/13/18 History amoxicillin 500 mg PO Q8HR 02/21/18 04/13/18 History aspirin [Aspirin Low Dose] 81 mg PO DAILY 02/21/18 04/13/18 History atorvastatin 40 mg PO DAILY 02/21/18 04/13/18 History clopidogrel [Plavix] 75 mg PO DAILY 02/21/18 04/13/18 History gabapentin [Neurontin] 300 mg PO TID 02/21/18 04/13/18 History insulin regular human 40 unit SUB-Q BID 02/21/18 04/13/18 History lisinopril 10 mg PO DAILY 02/21/18 04/13/18 History oxycodone 5 mg PO Q4-6H 02/21/18 04/13/18 History levofloxacin [Levaquin] 750 mg PO DAILY 04/13/18 04/13/18 History Results - Labs CBC & Chem 7: 04/27/18 03:38 04/27/18 03:25 Laboratory Results - last 24 hr 04/27/18 04/27/18 04/27/18 03:19 03:25 03:38 WBC 11.0 RBC 3.15 L Hgb 8.1 L Hct 23.9 L MCV 75.7 L MCH 25.8 L MCHC 34.1 RDW 17.8 H Plt Count 372 MPV 7.7 Neut % (Auto) 66.7 Lymph % (Auto) 17.2 [place] % (Auto) 10.1 H Eos % (Auto) 5.5 H Baso % (Auto) 0.5 Neut # (Auto) 7.3 Lymph # (Auto) 1.9 [place] # (Auto) 1.1 H Eos # (Auto) 0.6 H Baso # (Auto) 0.1 WBC Differential . Differential Comment Auto diff final Sodium 143 Potassium 3.9 Chloride 109 H Carbon Dioxide 24.8 Anion Gap 9 BUN 20 H Creatinine 1.25 Estimated GFR 77 L POC Glucose 104 Random Glucose 81 Calcium 9.0 Vancomycin Trough 21.4 H 04/27/18 04/27/18 04/27/18 06:25 12:11 16:48 WBC RBC Hgb Hct MCV MCH MCHC RDW Plt Count MPV Neut % (Auto) Lymph % (Auto) [place] % (Auto) Eos % (Auto) Baso % (Auto) Neut # (Auto) Lymph # (Auto) [place] # (Auto) Eos # (Auto) Baso # (Auto) WBC Differential Differential Comment Sodium Potassium Chloride Carbon Dioxide Anion Gap BUN Creatinine Estimated GFR POC Glucose 72 90 165 H Random Glucose Calcium Vancomycin Trough - Procedures DATE OF OPERATION: 04/15/2018 PREOPERATIVE DIAGNOSES: 1. Right extremity tissue loss. 2. Peripheral vascular disease. POSTOPERATIVE DIAGNOSES: 1. Right extremity tissue loss. 2. Peripheral vascular disease. PROCEDURE PERFORMED: Aortogram with right extremity angiogram. ATTENDING SURGEON: Moe Cullen MD Extremity Arterial Study 04/14/18 00:00 CONCLUSION: 1. Severe right lower extremity peripheral arterial disease with large component of small vessel disease. 2. Moderate range left lower extremity DARRIUS's with reduced TBI's consistent with component of small vessel disease. 3. Consider CT angiography for further evaluation. MRI ordered R foot CONCLUSION: 1. There is bone marrow edema with abnormal enhancement suspicious for osteomyelitis in the fifth metacarpal head, third metacarpal head, and proximal phalanx of the third digit. 2. Nonspecific marrow edema is present in the proximal phalanx of the fifth digit. 3. Diffuse subcutaneous edema with a wound along the dorsal aspect of the foot superficial to the distal third metacarpal and expected location of the distal fourth metacarpal. (1) PAD (peripheral artery disease) 04/22/18 Code(s): I73.9 - Peripheral vascular disease, unspecified Status: Acute - Plan NOS s/p R SFA to perimalleolar PT with vein patch 1. Pain control 2. BR until tomorrow (POD#1) 3. Bradford out tomorrow (POD#1) 4. Pulse/Doppler checks Date of procedure: 04/22/18 Procedure: 1. R SFA-PT bypass (cryo) 2. R PT vein patch 3. Redo bypass Implants: cryo vein Anesthesia: GETA Surgeon: Moe Cullen MD Hat Measurer: Poornima Benton Estimated blood loss (mL): 200 IV fluids (mL): 2,000 Urine output (mL): 325 Pathology: none sent Operation and Findings: very diseased perimalleolar PT patch and bypass from SFA to PT Palpable graft pulse Assessment and Plan - Assessment (1) Gangrene of right foot Code(s): I96 - Gangrene, not elsewhere classified Status: Acute (2) Diabetic foot infection Code(s): E11.628 - Type 2 diabetes mellitus with other skin complications; L08.9 - Local infection of the skin and subcutaneous tissue, unspecified Status: Acute - Plan Consent for 1) Right foot TMA, 2 ) Right foot bone biopsy NPO at midnight Discussed at length procedures, risk and post op. All questions answered. Discussed smoking cessation. Plan for procedure on 04/28/18
--- NOTE | 2018-04-27 20:26 | XR ---
EXAM DATE: 04/27/2018 8:21 PM EDT AGE/SEX: 43 years / Male INDICATIONS: Patient is having surgery on diabetic toe tomorrow. CLINICAL DATA: This is the patient's initial encounter. Patient reports that signs and symptoms have been present for 1 week and indicates a pain score of 3/10. MEDICAL/SURGICAL HISTORY: . Hypertension. Diabetes. Hyperlipidemia. Hypertension. Diabetes. Hyp erlipidemia. . CABG. Toe amputation. Left ankle COMPARISON: Chest x-ray dated 01/17/2018. FINDINGS: Diffuse infiltrates are noted bilaterally consistent with moderate congestion or pneumonia. Clinical correlation is recommended. The heart is stable. CONCLUSION: Diffuse infiltrates are noted bilaterally consistent with moderate congestion or pneumonia. Clinical correlation is recommended. Electronically signed by: Moe Cintron MD 04/27/2018 8:24 PM EDT
[2018-04-28] MEDS: Insulin NovoLOG Aspart Correctional Sugar Inj SQ SCH ×7 (00:03→19:00)
[2018-04-28] MEDS: Morphine Inj 4 MG/ML Vial IV.PUSH PRN ×2 (03:37→19:01)
[2018-04-28] MEDS: Ampicillin/Sulbactam Inj 3 GM in Sodium Chloride 0.9% Inj 100 ML IV.SIG SCH ×3 (04:59→18:59)
[2018-04-28 08:15] LABS: Baso # (Auto) 0.1 th/mm3 (0.0-0.2); Eos # (Auto) 0.5 th/mm3 (0.0-0.4); Eos % (Auto) 4.8 % (0.0-4.0); Hematocrit 22.4 % (39.0-51.0); Hemoglobin 7.6 gm/dL (13.0-17.0); Lymph # (Auto) 1.5 th/mm3 (1.0-4.8); Lymph % (Auto) 15.6 % (9.0-44.0); Mean Corpuscular Hemoglobin 25.6 pg (27.0-34.0); Mean Corpuscular Volume 75.3 fL (80.0-100.0); Mean Platelet Volume 7.7 fL (7.0-11.0); Mono % (Auto) 10.3 % (0.0-8.0); Neut # (Auto) 6.8 th/mm3 (1.8-7.7); Neut % (Auto) 68.3 % (16.0-70.0); Platelet Count 367 th/mm3 (150-450); Red Blood Count 2.97 mil/mm3 (4.50-5.90); Red Cell Distribution Width 17.2 % (11.6-17.2); White Blood Count 9.9 th/mm3 (4.0-11.0)
[2018-04-28] MEDS ORDERED: Sodium Chlor 0.9% Inj 500 ML IV.CONT PRN (08:46)
[2018-04-28] MEDS ORDERED: Metoprolol Tartrate 25 MG Tablet PO PRN (08:46)
[2018-04-28] MEDS ORDERED: Chlorhexidine Gluconate 2% 1 Pack (2 Cloths) TOPICAL PRN (08:47)
[2018-04-28] MEDS: Heparin - SQ 10,000 UNITS/ML Vial SQ SCH ×2 (09:06→21:32)
[2018-04-28] MEDS: Insulin Detemir Inj 1,000 UNIT/10 ML Vial SQ SCH ×2 (09:07→21:34)
[2018-04-28] MEDS: amLODIPine 10 MG Tablet PO SCH (09:09)
[2018-04-28] MEDS: Senna/Docusate Sodium 8.6/50 MG Tablet PO SCH ×2 (09:09→21:32)
[2018-04-28] MEDS: Lisinopril 20 MG Tablet PO SCH ×2 (09:09→21:32)
[2018-04-28] MEDS: Gabapentin 300 MG Capsule PO SCH ×3 (09:10→18:59)
--- NOTE | 2018-04-28 09:52 | ECG ---
Date Performed: 04/27/2018 Time Performed: 22:21:42 PTAGE: 43 years EKG: Sinus rhythm NORMAL ECG PREVIOUS TRACING : 01/04/2018 19.08 DOCTOR: Daniel De La Rosa Interpretating Date/Time 04/28/2018 09:50:15
--- NOTE | 2018-04-28 10:27 | P.PN ---
Subjective Interval history: Follow-up visit for right diabetic foot ulcer, peripheral vascular disease and acute kidney injury. Patient is seen and examined this morning resting in bed comfortably appears to be in no acute distress. Discussed surgery plans for today as well as need for transfusion of blood. Patient denies any shortness of breath, cough, nausea, vomiting or diarrhea. He reports that he did manage to move his bowels yesterday after enema and feels better. Physical Exam Vital signs: Vital Signs 04/27/18 12:00 04/27/18 20:00 04/28/18 00:00 Temperature 98.3 F 98.2 F 98.4 F Pulse Rate 86 89 87 Respiratory Rate 20 18 17 Blood Pressure 132/66 155/82 H 162/77 H Pulse Oximetry 97 98 95 04/28/18 08:00 Temperature 98.7 F Pulse Rate 84 Respiratory Rate 19 Blood Pressure 140/67 Pulse Oximetry 99 Intake & Output 04/27/18 04/28/18 04/28/18 18:59 06:59 18:59 Intake Total 2155 / 2155 100 / 100 100 / 100 Output Total 1200 / 1200 600 / 600 Balance 955 / 955 -500 / -500 100 / 100 Intake: IV 1535 / 1535 100 / 100 100 / 100 NS Inj 1,000 ML @ 84 mls/hr IV. 920 / 920 CONT .[id number] MER Rx#:[id number] Unasyn Inj 3 GM In NS Inj 100 100 / 100 100 / 100 100 / 100 ML @ 200 mls/hr IV.SIG Q6H MER Rx#:[id number] Vancomycin Inj 1,500 MG In NS 515 / 515 Inj 500 ML @ 250 mls/hr IV.SIG Q12H [facility] Rx#:[id number] Oral 620 / 620 0 / 0 Output: Urine 1200 / 1200 600 / 600 Other: Date of Last Bowel Movement 04/27/18 04/27/18 # Bowel Movements 1 Narrative: GENERAL: Obese. Well-developed patient, in no apparent distress. SKIN: Warm and dry. HEENT: Normocephalic. Pupils equal round and reactive. Nose without bleeding. Airway patent. NECK: Trachea midline. Supple. CARDIOVASCULAR: Regular rate and rhythm without murmurs, gallops, or rubs. RESPIRATORY: Diminished bases, likely due to body habitus. No wheezes, rales, or rhonchi. GASTROINTESTINAL: Abdomen distended, but improved, non-tender, hypoactive bowel sounds. MUSCULOSKELETAL: Extremities without clubbing, Right foot dressed. Bilateral lower extremity edema +1, improved. NEUROLOGICAL: Awake and alert. - Urinary Catheter Management Indwelling Urethral Catheter Cath placed during this visit: yes, but has since been removed by the nurse Reason for continuing: Decision to DC catheter Insertion date: 04/22/18 Insertion time: 11:00 Removal date: 04/23/18 Removal time: 09:15 Results - Labs CBC & Chem 7: 04/28/18 05:29 04/27/18 03:25 Laboratory Results - last 24 hr 04/27/18 04/27/18 04/27/18 12:11 16:48 23:53 WBC RBC Hgb Hct MCV MCH MCHC RDW Plt Count MPV Prelim Diff (Auto) Neut % (Auto) Lymph % (Auto) [place] % (Auto) Eos % (Auto) Baso % (Auto) Neut # (Auto) Lymph # (Auto) [place] # (Auto) Eos # (Auto) Baso # (Auto) Differential Comment POC Glucose 90 165 H 213 H 04/28/18 04/28/18 05:28 05:29 WBC 9.9 RBC 2.97 L Hgb 7.6 L Hct 22.4 L MCV 75.3 L MCH 25.6 L MCHC 34.0 RDW 17.2 Plt Count 367 MPV 7.7 Prelim Diff (Auto) Slide review pending Neut % (Auto) 68.3 Lymph % (Auto) 15.6 [place] % (Auto) 10.3 H Eos % (Auto) 4.8 H Baso % (Auto) 1.0 Neut # (Auto) 6.8 Lymph # (Auto) 1.5 [place] # (Auto) 1.0 H Eos # (Auto) 0.5 H Baso # (Auto) 0.1 Differential Comment . POC Glucose 115 H - Imaging Impressions Chest X-Ray 04/27/18 00:00 CONCLUSION: Diffuse infiltrates are noted bilaterally consistent with moderate congestion or pneumonia. Clinical correlation is recommended. - Procedures DATE OF OPERATION: 04/15/2018 PREOPERATIVE DIAGNOSES: 1. Right extremity tissue loss. 2. Peripheral vascular disease. POSTOPERATIVE DIAGNOSES: 1. Right extremity tissue loss. 2. Peripheral vascular disease. PROCEDURE PERFORMED: Aortogram with right extremity angiogram. ATTENDING SURGEON: Moe Cullen MD Extremity Arterial Study 04/14/18 00:00 CONCLUSION: 1. Severe right lower extremity peripheral arterial disease with large component of small vessel disease. 2. Moderate range left lower extremity DARRIUS's with reduced TBI's consistent with component of small vessel disease. 3. Consider CT angiography for further evaluation. MRI ordered R foot CONCLUSION: 1. There is bone marrow edema with abnormal enhancement suspicious for osteomyelitis in the fifth metacarpal head, third metacarpal head, and proximal phalanx of the third digit. 2. Nonspecific marrow edema is present in the proximal phalanx of the fifth digit. 3. Diffuse subcutaneous edema with a wound along the dorsal aspect of the foot superficial to the distal third metacarpal and expected location of the distal fourth metacarpal. (1) PAD (peripheral artery disease) 04/22/18 Code(s): I73.9 - Peripheral vascular disease, unspecified Status: Acute - Plan NOS s/p R SFA to perimalleolar PT with vein patch 1. Pain control 2. BR until tomorrow (POD#1) 3. [place] out tomorrow (POD#1) 4. Pulse/Doppler checks Date of procedure: 04/22/18 Procedure: 1. R SFA-PT bypass (cryo) 2. R PT vein patch 3. Redo bypass Implants: cryo vein Anesthesia: GETA Surgeon: Moe Cullen MD Telephone Sales Agent: Poornima Benton Estimated blood loss (mL): 200 IV fluids (mL): 2,000 Urine output (mL): 325 Pathology: none sent Operation and Findings: very diseased perimalleolar PT patch and bypass from SFA to PT Palpable graft pulse Assessment and Plan - Plan Patient is a 43 year old AA male with past medical history of diabetes, diabetic neuropathy, HTN, HLD, status post right lower extremity bypass graft Dr. Cullen, right fourth toe amputation by Dr. Gates who came into the hospital for evaluation of worsening right foot diabetic infection. SIRS, secondary to Right foot infection Diabetic foot infection Seen by Vascular surgery non palpable distal pulses as Per Vascular specialist Status post right lower extremity angiogram Severe right lower extremity peripheral arterial disease with large component of small vessel disease, Moderate range left lower extremity DARRIUS's with reduced TBI's s/p Right Superficial Femoral Artery to perimalleolar PT with vein patch, as per Vascular specialist. 5th toe cellulitis vs osteomyelitis -Meeting SIRS, Sepsis criteria -HR 97 WBC 11.9, ESR 102, C-reactive protein 10.70, creatinine 1.31 -Foot xray showed Stable examination with postsurgical changes not significantly changed -Previous cultures of the foot 04/08/18 -Enterococcus faecalis, pseudomonas aeruginosa -he was placed on ampicillin, Levaquin based on sensitivities -Vancomycin, Zosyn given in the ED. culture group D Enterococcus Zosyn was removed and continued on Vancomycin. -ID consult, greatly appreciate assistance. -s/p redo R fem-PT with patch on 04/22/[address] Alyse malone surgeon, now with strong distal pulses and Doppler, okay to have been given to the perfusion - Podiatry to do transmetatarsal amputation of right foot today. Abdominal distention Constipation: KUB completed on 04/26 with moderate amount of stool in the colon, continue bowel regimen, soapsuds enema today, encouraged to increase mobility. +BM, continue Trixie-colace DM 2, insulin-dependent uncontrolled started on Levemir and continue sliding scale to medium dose. -Keep blood sugar below 180 gr/dl Levemir 25 BID, medium sliding scale, scheduled 5 units pre meal. -Blood sugars stable. HTN Uncontrolled -Currently on amlodipine to 10 mg, add HCTZ 12.5 mg daily, Lisinopril 40 mg BID and on Clonidine 0.3 every 8 hours. -Blood pressure stable, continue to monitor. HLD continue Home medicines. Acute kidney injury -Baseline creatinine 0.85- Cr is worsening. s/p IV fluids, improvement in creatinine. Discussed holding off IV fluids for the moment secondary to increase leg and scrotal edema. -Continue to monitor renal function closely. Anemia, microcytic -H&H slowly dropping, possibly SHAHBAZ since no reports of bleeding or black stools - 1Unit of PRBC's today, check iron studies, follow H&H Obesity strongly recommended diet and exercise. DVT prop SCD Heparin Discussed Condition With: Patient, RN and Discharge Planning: Most likely will be discharging home post-op day today.
[2018-04-28] MEDS ORDERED: Sodium Chlor 0.9% Inj 250 ML IV.SIG SCH (11:00)
[2018-04-28] MEDS ORDERED: Lidocaine 2% Inj 50 ML Vial ONE (12:59)
[2018-04-28] MEDS ORDERED: Bupivacaine PF 0.5% Inj 30 ML Vial ONE (12:59)
[2018-04-28] MEDS ORDERED: HYDROmorphone PF Inj 2 MG/ML Vial ONE (13:09)
[2018-04-28] MEDS ORDERED: Lidocaine PF 1% Inj 5 ML Syringe INFILTRATN ONE (13:28)
[2018-04-28] MEDS ORDERED: Pharmacy Ordered Lab Info OTHER SCH (14:45)
--- NOTE | 2018-04-28 14:55 | P.OP ---
- Preoperative Diagnosis (1) Gangrene of right foot - Postoperative Diagnosis (1) Gangrene of right foot Date of procedure: 04/28/18 Procedure: 1) Right foot TMA, 1) Right foot 5th metatarsal bone biopsy Anesthesia: GETA Surgeon: Sandi Mackenzie DPM Estimated blood loss (mL): 100 Pathology: other (Right fore foot, right 5th metatarsal) Operation and Findings: Consistent with diagnosis.
[2018-04-28] MEDS ORDERED: *morphine SULFATE 10 MG/ML PERIprocedure ONLY ONE ×3 (15:04→15:31)
--- NOTE | 2018-04-28 22:33 | MP ---
cc: Sandi Mackenzie [facility] DATE OF OPERATION: 04/25/2018 PREOPERATIVE DIAGNOSIS: Right foot gangrene. POSTOPERATIVE DIAGNOSIS: Right foot gangrene. PROCEDURE: 1. Right foot transmetatarsal amputation. 2. Right foot fifth metatarsal bone biopsy. ANESTHESIA: General. HEMOSTASIS: None. ESTIMATED BLOOD LOSS: 100 mL. MATERIALS: 2-0 Vicryl and 3-0 nylon. INJECTABLES: Postoperatively 20 mL of 0.5% Marcaine plain. BRIEF HISTORY: The patient is a 43-year-old male with a long-standing history of PVD with a previous admission in December, where he underwent a right fourth digit amputation. He was subsequently readmitted for severe PVD, gangrene, uncontrolled diabetes with A1c of 14 as well as tobaccoism. After revascularization, the decision was made to resect necrotic nonviable tissue with a TMA. Risks, benefits, pros and cons were discussed. The patient freely consented surgical intervention. No guarantees were given nor implied. DESCRIPTION OF PROCEDURE IN DETAIL: The patient was brought into room and placed on continuous ventilation after general anesthesia was administered. Right foot was prepped, scrubbed and draped in usual sterile aseptic manner. Attention was then directed to the right foot where a fishmouth incision was carried over the metatarsals 1 through 5 dorsally and plantarly. This was done using a 15 blade. Healthy bleeding was noted. Using a Villagomez elevator, the metatarsals dorsally 1 through 5 was exposed. Using a sagittal saw, the metatarsals 1 through 5 was transected trying to establish appropriate parabola. The forefoot was amputated and passed off the field. Using a rongeur, a bone biopsy of the proximalmost aspect of the fifth metatarsal at the amputation site was resected and passed off the field. This was sent as specimen. A swab was taken of the soft tissue and sent for aerobic, anaerobic, Gram stain, culture and sensitivity. The surgical site was then pulse lavaged with 3 liters of normal sterile saline. Impregnated with 2 units of . The bleeders were bovied or tied as necessary. The incision was then primarily closed using 2-0 Vicryl and 3-0 nylon simple suture pattern. Dry sterile dressings were applied using Adaptic, 4 x 4s, Elan, ABDs and a light Toni wrap. The patient tolerated procedure and transferred to the PACU for a brief period of postop monitoring, afterward to be discharged to the floor. The patient will be followed appropriately while in-house. Sandi Mackenzie DPM SR/nancy/ , 08:38 PM , 08:47 PM
[2018-04-29] MEDS: Morphine Inj 4 MG/ML Vial IV.PUSH PRN ×4 (00:02→21:28)
[2018-04-29] MEDS: Ampicillin/Sulbactam Inj 3 GM in Sodium Chloride 0.9% Inj 100 ML IV.SIG SCH ×4 (00:04→18:15)
[2018-04-29] MEDS: Insulin NovoLOG Aspart Correctional Sugar Inj SQ SCH ×7 (00:13→18:15)
[2018-04-29 01:07] LABS: Calcium 8.5 mg/dL (8.5-10.1); Carbon Dioxide 24.5 meq/L (21.0-32.0); Potassium 4.8 meq/L (3.5-5.1)
--- NOTE | 2018-04-29 07:52 | P.PNVS ---
Subjective Post Op Day #: 7 Procedure: R SFA-PT with vein patch Subjective/Hospital Course: now s/p TMA pt c/o incisional pain but leg ok Objective Vital Signs / I&O: Vital Signs 04/28/18 08:00 04/28/18 12:00 04/28/18 14:58 Temperature 98.7 F 98.0 F 98.6 F Pulse Rate 84 83 77 Respiratory Rate 19 19 14 Blood Pressure 140/67 147/79 H 119/66 Pulse Oximetry 99 97 100 04/28/18 15:00 04/28/18 15:15 04/28/18 15:30 Temperature Pulse Rate 77 76 75 Respiratory Rate 12 13 10 L Blood Pressure 127/69 130/74 124/71 Pulse Oximetry 100 100 100 04/28/18 15:45 04/28/18 16:00 04/28/18 17:07 Temperature 98.3 F 98 F Pulse Rate 76 76 79 Respiratory Rate 12 12 16 Blood Pressure 141/72 H 138/70 128/74 Pulse Oximetry 100 100 100 04/28/18 17:14 04/28/18 17:31 04/28/18 20:00 Temperature 98 F 97.7 F 98.6 F Pulse Rate 80 80 85 Respiratory Rate 16 16 16 Blood Pressure 127/63 131/69 138/78 Pulse Oximetry 100 100 98 04/28/18 21:05 04/29/18 00:00 Temperature 98.7 F 98.3 F Pulse Rate 78 86 Respiratory Rate 17 17 Blood Pressure 142/78 H 139/63 Pulse Oximetry 96 99 Intake & Output 04/28/18 04/29/18 04/29/18 18:59 06:59 18:59 Intake Total 1964 / 1964 1600 / 1600 Output Total 100 / 100 800 / 800 Balance 1865 / 1865 800 / 800 Weight 120.2 kg Intake: IV 300 / 300 300 / 300 Unasyn Inj 3 GM In NS Inj 100 300 / 300 300 / 300 ML @ 200 mls/hr IV.SIG Q6H MER Rx#:[id number] Oral 615 / 615 900 / 900 Anesthesia Amount 1050 / 1050 Intake (Blood Product) Amt 0 / 0 400 / 400 Rbc As-3 Leukoreduced Unit 0 / 0 400 / 400 [id number] Output: Urine 0 / 0 800 / 800 Estimated Blood Loss 100 / 100 Other: # Voids 2 Date of Last Bowel Movement 04/27/18 Exam: resting comfortably calf incision intact appropriate edema + PT signal at level of tarsals Laboratory Results - last 24 hr 04/26/18 04/28/18 04/28/18 16:55 05:29 11:15 WBC 9.9 RBC 2.97 L Hgb 7.6 L Hct 22.4 L MCV 75.3 L MCH 25.6 L MCHC 34.0 RDW 17.2 Plt Count 367 MPV 7.7 Prelim Diff (Auto) Slide review pending Neut % (Auto) 68.3 Lymph % (Auto) 15.6 [place] % (Auto) 10.3 H Eos % (Auto) 4.8 H Baso % (Auto) 1.0 Neut # (Auto) 6.8 Lymph # (Auto) 1.5 [place] # (Auto) 1.0 H Eos # (Auto) 0.5 H Baso # (Auto) 0.1 WBC Differential . Diff Scan Auto diff confirmed Differential Comment . Sodium Potassium Chloride Carbon Dioxide Anion Gap BUN Creatinine Estimated GFR POC Glucose 97 Random Glucose Calcium Blood Type B Positive Antibody Screen Negative MTS Gel Crossmatch See Detail 04/28/18 04/28/18 04/28/18 12:58 15:17 18:50 WBC RBC Hgb Hct MCV MCH MCHC RDW Plt Count MPV Prelim Diff (Auto) Neut % (Auto) Lymph % (Auto) [place] % (Auto) Eos % (Auto) Baso % (Auto) Neut # (Auto) Lymph # (Auto) [place] # (Auto) Eos # (Auto) Baso # (Auto) WBC Differential Diff Scan Differential Comment Sodium Potassium Chloride Carbon Dioxide Anion Gap BUN Creatinine Estimated GFR POC Glucose 119 H 102 189 H Random Glucose Calcium Blood Type Antibody Screen MTS Gel Crossmatch 04/29/18 04/29/18 04/29/18 00:10 00:11 00:11 WBC RBC Hgb 10.0 L D Hct 31.0 L MCV MCH MCHC RDW Plt Count MPV Prelim Diff (Auto) Neut % (Auto) Lymph % (Auto) [place] % (Auto) Eos % (Auto) Baso % (Auto) Neut # (Auto) Lymph # (Auto) [place] # (Auto) Eos # (Auto) Baso # (Auto) WBC Differential Diff Scan Differential Comment Sodium 137 Potassium 4.8 D Chloride 104 Carbon Dioxide 24.5 Anion Gap 9 BUN 27 H Creatinine 1.62 H Estimated GFR 57 L POC Glucose 383 H Random Glucose 350 H D Calcium 8.5 Blood Type Antibody Screen MTS Gel Crossmatch 04/29/18 05:13 WBC RBC Hgb Hct MCV MCH MCHC RDW Plt Count MPV Prelim Diff (Auto) Neut % (Auto) Lymph % (Auto) [place] % (Auto) Eos % (Auto) Baso % (Auto) Neut # (Auto) Lymph # (Auto) [place] # (Auto) Eos # (Auto) Baso # (Auto) WBC Differential Diff Scan Differential Comment Sodium Potassium Chloride Carbon Dioxide Anion Gap BUN Creatinine Estimated GFR POC Glucose 302 H Random Glucose Calcium Blood Type Antibody Screen MTS Gel Crossmatch Assessment and Plan - Assessment (1) PAD (peripheral artery disease) Code(s): I73.9 - Peripheral vascular disease, unspecified Status: Acute - Plan POD#7 Pt s/p redo R fem-PT with patch graft patent by exam 1. Avoid TERENCE wrap across ankle that could compress graft 2. Continue pulse checks 3. weight bearing and TMA dressing per podiatry 4. Can be discharged from vascular standpoint anytime 5. Can shower but not soak in water from my standpoint Discharge Planning: D/C planning Will arrange post op f/u in a few weeks
[2018-04-29] MEDS: Gabapentin 300 MG Capsule PO SCH ×3 (09:17→18:15)
[2018-04-29] MEDS: Heparin - SQ 10,000 UNITS/ML Vial SQ SCH ×2 (09:18→21:28)
[2018-04-29] MEDS: Senna/Docusate Sodium 8.6/50 MG Tablet PO SCH ×2 (09:18→21:28)
[2018-04-29] MEDS: amLODIPine 10 MG Tablet PO SCH (09:18)
[2018-04-29] MEDS: Insulin Detemir Inj 1,000 UNIT/10 ML Vial SQ SCH ×2 (09:55→21:29)
--- NOTE | 2018-04-29 09:58 | P.PN ---
Subjective Interval history: Follow-up visit for right diabetic foot ulcer, peripheral vascular disease anemia and acute kidney injury. Patient seen and examined resting in bed comfortably in no acute distress. He reports ongoing right foot pain. Denies any nausea, vomiting, diarrhea, cough, shortness of breath or chest pain. Discussed with patient the importance of getting up and out of bed, verbalized understanding. Physical Exam Vital signs: Vital Signs 04/28/18 12:00 04/28/18 14:58 04/28/18 15:00 Temperature 98.0 F 98.6 F Pulse Rate 83 77 77 Respiratory Rate 19 14 12 Blood Pressure 147/79 H 119/66 127/69 Pulse Oximetry 97 100 100 04/28/18 15:15 04/28/18 15:30 04/28/18 15:45 Temperature Pulse Rate 76 75 76 Respiratory Rate 13 10 L 12 Blood Pressure 130/74 124/71 141/72 H Pulse Oximetry 100 100 100 04/28/18 16:00 04/28/18 17:07 04/28/18 17:14 Temperature 98.3 F 98 F 98 F Pulse Rate 76 79 80 Respiratory Rate 12 16 16 Blood Pressure 138/70 128/74 127/63 Pulse Oximetry 100 100 100 04/28/18 17:31 04/28/18 20:00 04/28/18 21:05 Temperature 97.7 F 98.6 F 98.7 F Pulse Rate 80 85 78 Respiratory Rate 16 16 17 Blood Pressure 131/69 138/78 142/78 H Pulse Oximetry 100 98 96 04/29/18 00:00 04/29/18 08:00 Temperature 98.3 F 97.7 F Pulse Rate 86 77 Respiratory Rate 17 18 Blood Pressure 139/63 123/69 Pulse Oximetry 99 99 Intake & Output 04/28/18 04/29/18 04/29/18 18:59 06:59 18:59 Intake Total 1965 / 1965 1600 / 1600 Output Total 100 / 100 800 / 800 Balance 1865 / 1865 800 / 800 Weight 120.2 kg Intake: IV 300 / 300 300 / 300 Unasyn Inj 3 GM In NS Inj 100 300 / 300 300 / 300 ML @ 200 mls/hr IV.SIG Q6H MER Rx#:[id number] Oral 615 / 615 900 / 900 Anesthesia Amount 1050 / 1050 Intake (Blood Product) Amt 0 / 0 400 / 400 Rbc As-3 Leukoreduced Unit 0 / 0 400 / 400 [id number] Output: Urine 0 / 0 800 / 800 Estimated Blood Loss 100 / 100 Other: # Voids 2 Date of Last Bowel Movement 04/27/18 Narrative: GENERAL: Obese. Well-developed patient, in no apparent distress. SKIN: Warm and dry. HEENT: Normocephalic. Pupils equal round and reactive. Nose without bleeding. Airway patent. NECK: Trachea midline. Supple. CARDIOVASCULAR: Regular rate and rhythm without murmurs, gallops, or rubs. RESPIRATORY: Diminished bases, likely due to body habitus. No wheezes, rales, or rhonchi. GASTROINTESTINAL: Abdomen distended, non-tender, hypoactive bowel sounds. MUSCULOSKELETAL: Extremities without clubbing, Right foot dressed dry and intact. Bilateral lower extremity trace edema, improved. NEUROLOGICAL: Awake and alert. - Urinary Catheter Management Indwelling Urethral Catheter Cath placed during this visit: yes, but has since been removed by the nurse Reason for continuing: Decision to DC catheter Insertion date: 04/22/18 Insertion time: 11:00 Removal date: 04/23/18 Removal time: 09:15 Results - Labs CBC & Chem 7: 04/29/18 10:07 04/29/18 10:07 Laboratory Results - last 24 hr 04/26/18 04/28/18 04/28/18 16:55 05:29 11:15 Hgb Hct WBC Differential . Diff Scan Auto diff confirmed Sodium Potassium Chloride Carbon Dioxide Anion Gap BUN Creatinine Estimated GFR POC Glucose 97 Random Glucose Calcium Blood Type B Positive Antibody Screen Negative MTS Gel Crossmatch See Detail 04/28/18 04/28/18 04/28/18 12:58 15:17 18:50 Hgb Hct WBC Differential Diff Scan Sodium Potassium Chloride Carbon Dioxide Anion Gap BUN Creatinine Estimated GFR POC Glucose 119 H 102 189 H Random Glucose Calcium Blood Type Antibody Screen MTS Gel Crossmatch 04/29/18 04/29/18 04/29/18 00:10 00:11 00:11 Hgb 10.0 L D Hct 31.0 L WBC Differential Diff Scan Sodium 137 Potassium 4.8 D Chloride 104 Carbon Dioxide 24.5 Anion Gap 9 BUN 27 H Creatinine 1.62 H Estimated GFR 57 L POC Glucose 383 H Random Glucose 350 H D Calcium 8.5 Blood Type Antibody Screen MTS Gel Crossmatch 04/29/18 05:13 Hgb Hct WBC Differential Diff Scan Sodium Potassium Chloride Carbon Dioxide Anion Gap BUN Creatinine Estimated GFR POC Glucose 302 H Random Glucose Calcium Blood Type Antibody Screen MTS Gel Crossmatch Microbiology 04/28/18 14:20 Wound - Toe Gram Stain - Final 04/28/18 14:20 Wound - Toe Gram Stain - Final 04/28/18 14:20 Wound - Toe Fungal Smear - Final No fungal elements seen 04/28/18 14:20 Wound - Toe Fungal Smear - Final No fungal elements seen - Procedures DATE OF OPERATION: 04/15/2018 PREOPERATIVE DIAGNOSES: 1. Right extremity tissue loss. 2. Peripheral vascular disease. POSTOPERATIVE DIAGNOSES: 1. Right extremity tissue loss. 2. Peripheral vascular disease. PROCEDURE PERFORMED: Aortogram with right extremity angiogram. ATTENDING SURGEON: Moe Cullen MD Extremity Arterial Study 04/14/18 00:00 CONCLUSION: 1. Severe right lower extremity peripheral arterial disease with large component of small vessel disease. 2. Moderate range left lower extremity DARRIUS's with reduced TBI's consistent with component of small vessel disease. 3. Consider CT angiography for further evaluation. MRI ordered R foot CONCLUSION: 1. There is bone marrow edema with abnormal enhancement suspicious for osteomyelitis in the fifth metacarpal head, third metacarpal head, and proximal phalanx of the third digit. 2. Nonspecific marrow edema is present in the proximal phalanx of the fifth digit. 3. Diffuse subcutaneous edema with a wound along the dorsal aspect of the foot superficial to the distal third metacarpal and expected location of the distal fourth metacarpal. (1) PAD (peripheral artery disease) 04/22/18 Code(s): I73.9 - Peripheral vascular disease, unspecified Status: Acute - Plan NOS s/p R SFA to perimalleolar PT with vein patch 1. Pain control 2. BR until tomorrow (POD#1) 3. [place] out tomorrow (POD#1) 4. Pulse/Doppler checks Date of procedure: 04/22/18 Procedure: 1. R SFA-PT bypass (cryo) 2. R PT vein patch 3. Redo bypass Implants: cryo vein Anesthesia: GETA Surgeon: Moe Cullen MD Rn Nicu: Poornima Benton Estimated blood loss (mL): 200 IV fluids (mL): 2,000 Urine output (mL): 325 Pathology: none sent Operation and Findings: very diseased perimalleolar PT patch and bypass from SFA to PT Palpable graft pulse Assessment and Plan - Plan Patient is a 43 year old AA male with past medical history of diabetes, diabetic neuropathy, HTN, HLD, status post right lower extremity bypass graft Dr. Cullen, right fourth toe amputation by Dr. Gates who came into the hospital for evaluation of worsening right foot diabetic infection. SIRS, secondary to Right foot infection Diabetic foot infection Seen by Vascular surgery non palpable distal pulses as Per Vascular specialist Status post right lower extremity angiogram Severe right lower extremity peripheral arterial disease with large component of small vessel disease, Moderate range left lower extremity DARRIUS's with reduced TBI's s/p Right Superficial Femoral Artery to perimalleolar PT with vein patch, as per Vascular specialist. 5th toe cellulitis vs osteomyelitis Meeting SIRS, Sepsis criteria HR 97 WBC 11.9, ESR 102, C-reactive protein 10.70, creatinine 1.31 -Foot xray showed Stable examination with postsurgical changes not significantly changed -Previous cultures of the foot 04/08/18 -Enterococcus faecalis, pseudomonas aeruginosa -he was placed on ampicillin, Levaquin based on sensitivities -Vancomycin, Zosyn given in the ED. culture group D Enterococcus Zosyn and Vanco. D/C now on Unasyn -ID consult, greatly appreciate assistance. -s/p redo R fem-PT with patch on 04/22/[address] Cullen [facility] surgeon, now with strong distal pulses and Doppler, okay to have been given to the perfusion - s/p right transmetatarsal amputation by Dr. Mackenzie 04/28. Wound care consulted for recommendations, appreciate assistance. - Pain control with P.O. Dilaudid and IV Morphine for breakthrough pain. - Increase in WBC to 16.7, possibly related to surgical response, patient has been afebrile. Abdominal distention Constipation: KUB completed on 04/26 with moderate amount of stool in the colon. +BM, continue stool softeners and add MiraLax daily, encourage mobility. DM 2, insulin-dependent uncontrolled started on Levemir and continue sliding scale to medium dose. A1C improved to 6.1 -Keep blood sugar below 180 gr/dl Levemir 25 BID, medium sliding scale, scheduled 5 units pre meal. -Blood sugars stable. HTN Uncontrolled -Currently on amlodipine to 10 mg, add HCTZ 12.5 mg daily, and on Clonidine 0.3 every 8 hours. -Blood pressure stable, continue to monitor. HLD continue Home medicines. Acute kidney injury -Baseline creatinine 0.85- Cr is worsened, improved w/ IV hydration however stopped due to edema. -Creatinine hanging around 1.6, will D/C ACEI and continue to monitor renal function closely Anemia, microcytic Multifactorial (post-op and SHAHBAZ) -H&H improved after 1 unit PRBC's to 10.0/31.0, this a.m. 7.2/21.5 - Will transfuse with 1 unit of PRBC's today - Iron studies consistent w/ SHAHBAZ, stat p.o replacement - Check Hemoccult Obesity strongly recommended diet and exercise. DVT prop SCD Heparin Discussed Condition With: Patient, RN, and Discharge Planning: Most likely will be discharging home this weekend, will be going home.
[2018-04-29] MEDS: Lisinopril 20 MG Tablet PO SCH (10:05)
[2018-04-29 10:51] LABS: Baso # (Auto) 0.1 th/mm3 (0.0-0.2); Baso % (Auto) 0.4 % (0.0-2.0); Eos # (Auto) 0.1 th/mm3 (0.0-0.4); Eos % (Auto) 0.6 % (0.0-4.0); Hematocrit 21.5 % (39.0-51.0); Hemoglobin 7.2 gm/dL (13.0-17.0); Lymph # (Auto) 1.7 th/mm3 (1.0-4.8); Mean Corpuscular HGB Conc 33.5 % (32.0-36.0); Mean Corpuscular Volume 77.8 fL (80.0-100.0); Mean Platelet Volume 7.8 fL (7.0-11.0); Mono # (Auto) 1.5 th/mm3 (0.0-0.9); Mono % (Auto) 9.2 % (0.0-8.0); Neut # (Auto) 13.4 th/mm3 (1.8-7.7); Neut % (Auto) 79.8 % (16.0-70.0); Platelet Count 356 th/mm3 (150-450); Red Blood Count 2.76 mil/mm3 (4.50-5.90); Red Cell Distribution Width 16.9 % (11.6-17.2); White Blood Count 16.7 th/mm3 (4.0-11.0)
[2018-04-29] MEDS ORDERED: Morphine Sulfate Inj 2 MG/ML Vial IV.PUSH ONE (11:15)
[2018-04-29 11:27] LABS: % Iron Saturation 17.1 % (20-50); Calcium 8.7 mg/dL (8.5-10.1); Carbon Dioxide 23.7 meq/L (21.0-32.0); Potassium 4.4 meq/L (3.5-5.1)
--- NOTE | 2018-04-29 12:25 | P.CONWOU ---
History of Present Illness Service: 04/29/18 Consult date: 04/29/18 Primary Care Provider: UNKNOWN Chief Complaint: "Foot infection" History of Present Illness: Patient who is now s/p right foot transmetatarsal amputation POD #1 seen in room with his 2 nieces and his . Post surgical wound under the care of podiatry. Voices that he is doing well and after being counselled about tobacco cessation and continued dietary and diabetic control, he voiced plans for compliance. Has no other acute concerns. FOR[facility]LY [facility] - History History Provided By: Patient - Medical History Medical History: Medical History (Last Reviewed 04/28/18 @ 09:11 by Janee Tolbert RN) HLD (hyperlipidemia) Amputated toe Diabetes Hypertension - Surgical History Surgical History: Surgical History (Last Reviewed 04/28/18 @ 08:59 by Rosalina Gee) History of arthroplasty of left ankle Hx of CABG - Family History Family History: Family History (Last Reviewed 04/27/18 @ 16:51 by Janeen Bolanos MD) Mother DM type 2 (diabetes mellitus, type 2) Father DM type 2 (diabetes mellitus, type 2) - Tobacco History Second Hand Smoke Exposure: Yes Smoking Status: Current every day smoker Tobacco Type: Cigarettes Packs Per Day: 0.5 - Alcohol History How Often Do You Have a Drink Containing Alcohol: Never - Substance Use History Substance History: No History of Abuse - Travel History Recent Travel in the [place] Within the Last 8 Weeks: No Recent Travel Out of the Country Within the Last 8 Weeks: No - Immunization History Tetanus Immunization: >5 Years Hx Influenza Vaccine This Season: No Medications and Allergies Active Medications: Active Medications Hydrocodone Bitart/Acetaminophen ([place] 5/325) 1 tab PO Q4H PRN PRN Reason: PAIN SCALE 3-6 Al Hydroxide/Mg Hydroxide (Milk Of Magnesia Liq) 30 ml PO Q12H PRN PRN Reason: Mild Constipation Last Admin: 04/27/18 09:01 Dose: 30 ml Amlodipine Besylate (Norvasc) 10 mg PO DAILY ON LICENSE OF [facility] Last Admin: 04/29/18 09:18 Dose: 10 mg Aspirin (Ecotrin) 81 mg PO DAILY ON LICENSE OF [facility] Last Admin: 04/29/18 09:17 Dose: 81 mg Atorvastatin Calcium (Lipitor) 40 mg PO DAILY ON LICENSE OF [facility] Last Admin: 04/29/18 09:17 Dose: 40 mg Bisacodyl (Dulcolax Supp) 10 mg RECTAL DAILY PRN PRN Reason: SEVERE CONSITIPATION Last Admin: 04/26/18 17:30 Dose: 10 mg Clonidine HCl (Catapres) 0.3 mg PO Q8H ON LICENSE OF [facility] Last Admin: 04/29/18 04:04 Dose: 0.3 mg Dextrose (D50w Vial) 50 ml IV.PUSH UNSCH PRN PRN Reason: PER HYPOGLYCEMIA PROTOCOL Enalaprilat (Vasotec Inj) 1.25 mg IV.PUSH Q6H PRN PRN Reason: SBP>160, DBP>90 Last Admin: 04/22/18 01:30 Dose: 1.25 mg Gabapentin (Neurontin) 300 mg PO TID ON LICENSE OF [facility] Last Admin: 04/29/18 09:17 Dose: 300 mg Glucagon (Glucagon Inj) 1 mg OTHER PRN PRN PRN Reason: for Hypoglycemia Protocol Glycerin (Glycerin Adult Supp) 2 gm RECTAL DAILY PRN PRN Reason: CONSTIPATION Heparin Sodium (Porcine) (Heparin Inj) 5,000 units SQ Q12HR ON LICENSE OF [facility] Last Admin: 04/29/18 09:18 Dose: 5,000 units Hydrochlorothiazide (Microzide) 12.5 mg PO DAILY ON LICENSE OF [facility] Last Admin: 04/29/18 09:17 Dose: 12.5 mg Hydromorphone HCl (Dilaudid) 2 mg PO Q6H PRN PRN Reason: PAIN SCALE 7 TO 10 SEVERE Last Admin: 04/29/18 10:41 Dose: 2 mg Ampicillin Sodium/Sulbactam (Sodium 3 gm/ Sodium Chloride) 100 mls @ 200 mls/ hr IV.SIG Q6H ON LICENSE OF [facility] Last Infusion: 04/29/18 06:08 Dose: Infused Insulin Aspart (Novolog Insulin Correctional Sugar Inj) 0 unit SQ 07,13,19,01 ON LICENSE OF [facility]; Protocol Last Admin: 04/29/18 06:02 Dose: 10 unit Insulin Aspart (Novolog Insulin Correctional Sugar Inj) 5 unit SQ TIDAC ON LICENSE OF [facility]; Protocol Last Admin: 04/29/18 09:55 Dose: 5 unit Insulin Detemir (Levemir Inj) 25 unit SQ BID ON LICENSE OF [facility]; Protocol Last Admin: 04/29/18 09:55 Dose: 25 unit Lactulose (Lactulose Liq) 30 ml PO DAILY PRN PRN Reason: CONSTIPATION Last Admin: 04/26/18 02:44 Dose: 30 ml Lisinopril (Prinivil) 40 mg PO BID ON LICENSE OF [facility] Last Admin: 04/29/18 10:05 Dose: 40 mg Miscellaneous Information ([facility] Nursing Information) 1 each OTHER UNSCH PRN PRN Reason: SEE LABEL COMMENTS Stop: 04/29/18 14:54 Morphine Sulfate (Morphine Inj) 4 mg IV.PUSH Q3H PRN PRN Reason: BREAKTHROUGH PAIN Last Admin: 04/29/18 04:04 Dose: 4 mg Naloxone HCl (Narcan Inj) 0.4 mg IV.PUSH UNSCH PRN PRN Reason: SEE LABEL COMMENTS Ondansetron HCl (Zofran Inj) 4 mg IV.PUSH Q6H PRN PRN Reason: Nausea, vomiting Senna/Docusate Sodium (Trixie-Colace) 1 tab PO BID ON LICENSE OF [facility] Last Admin: 04/29/18 09:18 Dose: 1 tab Sennosides (Senokot) 17.2 mg PO Q12H PRN PRN Reason: Moderate Constipation Last Admin: 04/26/18 10:17 Dose: 17.2 mg Simethicone (Phazyme Chew) 125 mg PO TID PRN PRN Reason: GAS RETENTION Last Admin: 04/24/18 11:03 Dose: 125 mg Sodium Chloride (Ns Flush) 2 ml IV.FLUSH PRN PRN PRN Reason: FLUSH AFTER USING IV ACCESS Last Admin: 04/28/18 21:34 Dose: 2 ml Sodium Chloride (Ns Flush) 2 ml IV.FLUSH BID ON LICENSE OF [facility] Last Admin: 04/29/18 10:06 Dose: 2 ml Allergies Allergy/AdvReac Type Severity Reaction Status Date / Time No Known Allergies Allergy Verified 04/13/18 12:35 Home Medications Medication Instructions Recorded Confirmed Type amlodipine 5 mg PO DAILY 02/21/18 04/13/18 History amoxicillin 500 mg PO Q8HR 02/21/18 04/13/18 History aspirin [Aspirin Low Dose] 81 mg PO DAILY 02/21/18 04/13/18 History atorvastatin 40 mg PO DAILY 02/21/18 04/13/18 History clopidogrel [Plavix] 75 mg PO DAILY 02/21/18 04/13/18 History gabapentin [Neurontin] 300 mg PO TID 02/21/18 04/13/18 History insulin regular human 40 unit SUB-Q BID 02/21/18 04/13/18 History lisinopril 10 mg PO DAILY 02/21/18 04/13/18 History oxycodone 5 mg PO Q4-6H 02/21/18 04/13/18 History levofloxacin [Levaquin] 750 mg PO DAILY 04/13/18 04/13/18 History Physical Exam Vital signs: Vital Signs 04/28/18 14:58 04/28/18 15:00 04/28/18 15:15 Temperature 98.6 F Pulse Rate 77 77 76 Respiratory Rate 14 12 13 Blood Pressure 119/66 127/69 130/74 Pulse Oximetry 100 100 100 04/28/18 15:30 04/28/18 15:45 04/28/18 16:00 Temperature 98.3 F Pulse Rate 75 76 76 Respiratory Rate 10 L 12 12 Blood Pressure 124/71 141/72 H 138/70 Pulse Oximetry 100 100 100 04/28/18 17:07 04/28/18 17:14 04/28/18 17:31 Temperature 98 F 98 F 97.7 F Pulse Rate 79 80 80 Respiratory Rate 16 16 16 Blood Pressure 128/74 127/63 131/69 Pulse Oximetry 100 100 100 04/28/18 20:00 04/28/18 21:05 04/29/18 00:00 Temperature 98.6 F 98.7 F 98.3 F Pulse Rate 85 78 86 Respiratory Rate 16 17 17 Blood Pressure 138/78 142/78 H 139/63 Pulse Oximetry 98 96 99 04/29/18 08:00 04/29/18 10:06 Temperature 97.7 F Pulse Rate 77 Respiratory Rate 18 18 Blood Pressure 123/69 Pulse Oximetry 99 Intake & Output 04/28/18 04/29/18 04/29/18 18:59 06:59 18:59 Intake Total 1965 / 1965 1600 / 1600 10 / 10 Output Total 100 / 100 800 / 800 Balance 1865 / 1865 800 / 800 10 / 10 Weight 120.2 kg Intake: IV 300 / 300 300 / 300 10 / 10 Unasyn Inj 3 GM In NS Inj 100 300 / 300 300 / 300 ML @ 200 mls/hr IV.SIG Q6H MER Rx#:[id number] NS Inj 250 ML @ 15 mls/hr IV. 10 / 10 SIG ONCE MER Rx#:[id number] Oral 615 / 615 900 / 900 Anesthesia Amount 1050 / 1050 Intake (Blood Product) Amt 0 / 0 400 / 400 Rbc As-3 Leukoreduced Unit 0 / 0 400 / 400 [id number] Output: Urine 0 / 0 800 / 800 Estimated Blood Loss 100 / 100 Other: # Voids 2 Date of Last Bowel Movement 04/27/18 - Urinary Catheter Management Indwelling Urethral Catheter Cath placed during this visit: yes, but has since been removed by the nurse Reason for continuing: Decision to DC catheter Insertion date: 04/22/18 Insertion time: 11:00 Removal date: 04/23/18 Removal time: 09:15 Wound/Pressure Injury - Patient Status Premedicated for Pain Prior to Dressing Change: No - Wound Right Toe - 5th Digit Wound Assessment: Admission Wound Type: Traumatic Wound Is This a Chronic Wound: Yes Wound Bed Appearance: Yellow Surrounding Tissue Temperature: Warm Drainage Description: Yellow Drainage Amount: None Drainage Odor: Slight Odor Dressing Status: Dry & Intact Wound Packing Type: Gauze Roll Primary Dressing: Gauze Pad Cover Dressing: Gauze Roll/Wrap Incision - Patient Status Premedicated for Pain Prior to Dressing Change: No - Incision Right Groin Incision Assessment: Ongoing Incision Type: Incision Incision Description: Sutures Incision Bed Appearance: [place] Drainage Amount: None Drainage Odor: No Odor Incision Dressing Status: Open to Air Primary Dressing: negative pressure drsg Right Knee Incision Assessment: Ongoing Incision Type: Incision Incision Description: Sutures Incision Bed Appearance: [place] Surrounding Tissue Temperature: Warm Drainage Amount: None Drainage Odor: No Odor Incision Dressing Status: Open to Air Right Ankle Incision Assessment: Ongoing Incision Type: Incision Incision Description: Approximated, [place] Drainage Amount: None Drainage Odor: No Odor Incision Dressing Status: Open to Air Primary Dressing: Gauze Pad Cover Dressing: Transparent Right Foot Incision Assessment: Ongoing Incision Type: Amputation Incision Description: Sutures Drainage Amount: None Incision Dressing Status: Dry & Intact Topical: XEROFORM 5X9 Primary Dressing: Gauze Pad Cover Dressing: Elastic Bandage Assessment and Plan - Assessment (1) Gangrene of toe of right foot Code(s): I96 - Gangrene, not elsewhere classified Status: Acute Plan: Currently s/p transmetatarsal amputation. Patient being followed for post op wound by podiatry. (2) PAD (peripheral artery disease) Code(s): I73.9 - Peripheral vascular disease, unspecified Status: Acute (3) Tobacco abuse Code(s): Z72.0 - Tobacco use Status: Acute Plan: Counselled to quit and the sequelae of noncompliance which includes further amputations as well as discussed. Patient and voiced understanding and voiced that compliance would be adhered to. (4) Ulcer of right foot Code(s): L97.519 - Non-pressure chronic ulcer of other part of right foot with unspecified severity Status: Acute Plan: Wound dimensions this week are:5cmx3.8cmx0.5cm. Wound was cleaned with normal saline and dressed with gauze and gopi. Patient was extensively counselled about saving his leg. He had been thinking about a bka, however a right transmetatarsal ampputation had been planned. (5) Well controlled type 2 diabetes mellitus Code(s): E11.9 - Type 2 diabetes mellitus without complications Status: Acute Plan: Well controlled at this time. Hemoglobin aic has improved from 14 -6. (6) Amputated toe of right foot Code(s): Z89.421 - Acquired absence of other right toe(s) Status: Acute
[2018-04-29] MEDS ORDERED: Sodium Chlor 0.9% Inj 250 ML IV.SIG SCH (13:00)
[2018-04-29] MEDS: Ferrous Sulfate 325 MG Tablet PO SCH (18:15)
[2018-04-30] MEDS: Ampicillin/Sulbactam Inj 3 GM in Sodium Chloride 0.9% Inj 100 ML IV.SIG SCH ×4 (00:13→17:50)
[2018-04-30] MEDS: Insulin NovoLOG Aspart Correctional Sugar Inj SQ SCH ×7 (00:16→21:27)
[2018-04-30] MEDS: Morphine Inj 4 MG/ML Vial IV.PUSH PRN ×2 (05:15→17:59)
[2018-04-30 05:35] LABS: Baso # (Auto) 0.1 th/mm3 (0.0-0.2); Baso % (Auto) 0.6 % (0.0-2.0); Eos # (Auto) 0.6 th/mm3 (0.0-0.4); Eos % (Auto) 4.2 % (0.0-4.0); Hematocrit 24.5 % (39.0-51.0); Hemoglobin 8.1 gm/dL (13.0-17.0); Lymph % (Auto) 14.7 % (9.0-44.0); Mean Corpuscular HGB Conc 33.2 % (32.0-36.0); Mean Corpuscular Hemoglobin 26.4 pg (27.0-34.0); Mean Corpuscular Volume 79.6 fL (80.0-100.0); Mean Platelet Volume 7.7 fL (7.0-11.0); Mono # (Auto) 1.3 th/mm3 (0.0-0.9); Mono % (Auto) 9.9 % (0.0-8.0); Neut # (Auto) 9.5 th/mm3 (1.8-7.7); Neut % (Auto) 70.6 % (16.0-70.0); Platelet Count 357 th/mm3 (150-450); Red Blood Count 3.07 mil/mm3 (4.50-5.90); Red Cell Distribution Width 17.3 % (11.6-17.2); White Blood Count 13.4 th/mm3 (4.0-11.0)
[2018-04-30 05:55] LABS: Calcium 8.5 mg/dL (8.5-10.1); Carbon Dioxide 27.8 meq/L (21.0-32.0)
[2018-04-30] MEDS: Heparin - SQ 10,000 UNITS/ML Vial SQ SCH ×2 (08:46→21:27)
[2018-04-30] MEDS: Insulin Detemir Inj 1,000 UNIT/10 ML Vial SQ SCH ×2 (08:47→21:28)
--- NOTE | 2018-04-30 09:24 | P.PN ---
Subjective Interval history: Follow-up visit for diabetic foot ulcer with OM, DM, anemia, AKA, and constipation. Patient seen and examined sitting up in bed, in no acute distress. He reports that the pain in the foot is better today and denies any fevers, chills, N/V/D, cough, SOB or abdominal pain. He reports he has not been able to have another BM since enema and is passing gas. Physical Exam Vital signs: Vital Signs 04/29/18 10:06 04/29/18 11:11 04/29/18 12:00 Temperature 97.8 F Pulse Rate 78 Respiratory Rate 18 18 18 Blood Pressure 124/67 Pulse Oximetry 95 04/29/18 15:54 04/29/18 16:00 04/29/18 16:10 Temperature 97.6 F 97.4 F L 97.6 F Pulse Rate 73 79 77 Respiratory Rate 18 18 18 Blood Pressure 122/63 125/67 129/64 Pulse Oximetry 95 98 04/29/18 17:00 04/29/18 20:13 04/30/18 00:03 Temperature 97.9 F 97.4 F L Pulse Rate 81 89 Respiratory Rate 18 18 20 Blood Pressure 148/72 H 151/70 H Pulse Oximetry 100 100 04/30/18 08:00 Temperature 97.5 F L Pulse Rate 87 Respiratory Rate 18 Blood Pressure 161/77 H Pulse Oximetry 96 Intake & Output 04/29/18 04/30/18 04/30/18 18:59 06:59 18:59 Intake Total 110 / 110 1080 / 1080 Output Total 700 / 700 Balance 110 / 110 380 / 380 Weight 120 kg Intake: IV 110 / 110 300 / 300 Unasyn Inj 3 GM In NS Inj 100 100 / 100 300 / 300 ML @ 200 mls/hr IV.SIG Q6H MER Rx#:[id number] NS Inj 250 ML @ 15 mls/hr IV. 10 / 10 SIG ONCE MER Rx#:[id number] Oral 780 / 780 Intake (Blood Product) Amt 0 / 0 Rbc As-3 Leukoreduced Unit 0 / 0 [id number] Output: Urine 700 / 700 Other: Date of Last Bowel Movement 04/27/18 Narrative: GENERAL: Obese. Well-developed patient, in no apparent distress. SKIN: Warm and dry. HEENT: Normocephalic. Pupils equal round and reactive. Nose without bleeding. Airway patent. NECK: Trachea midline. Supple. CARDIOVASCULAR: Regular rate and rhythm without murmurs, gallops, or rubs. RESPIRATORY: Diminished bases, likely due to body habitus. No wheezes, rales, or rhonchi. GASTROINTESTINAL: Abdomen distended, non-tender, hypoactive bowel sounds. MUSCULOSKELETAL: Extremities without clubbing, Right foot dressed dry and intact. Bilateral lower extremity trace edema, improved. NEUROLOGICAL: Awake and alert. - Urinary Catheter Management Indwelling Urethral Catheter Cath placed during this visit: yes, but has since been removed by the nurse Reason for continuing: Decision to DC catheter Insertion date: 04/22/18 Insertion time: 11:00 Removal date: 04/23/18 Removal time: 09:15 Results - Labs CBC & Chem 7: 04/30/18 04:08 04/30/18 04:08 Laboratory Results - last 24 hr 04/28/18 04/29/18 04/29/18 11:15 10:07 10:07 WBC 16.7 H RBC 2.76 L Hgb 7.2 L D Hct 21.5 L MCV 77.8 L MCH 26.0 L MCHC 33.5 RDW 16.9 Plt Count 356 MPV 7.8 Prelim Diff (Auto) Slide review pending Neut % (Auto) 79.8 H Lymph % (Auto) 10.0 [place] % (Auto) 9.2 H Eos % (Auto) 0.6 Baso % (Auto) 0.4 Neut # (Auto) 13.4 H Lymph # (Auto) 1.7 [place] # (Auto) 1.5 H Eos # (Auto) 0.1 Baso # (Auto) 0.1 WBC Differential . Diff Scan Auto diff confirmed Differential Comment . Sodium 137 Potassium 4.4 Chloride 102 Carbon Dioxide 23.7 Anion Gap 11 BUN 29 H Creatinine 1.65 H Estimated GFR 56 L POC Glucose Random Glucose 235 H D Calcium 8.7 Iron 28 L TIBC 164 L % Saturation 17.1 L MTS Gel Crossmatch See Detail 04/29/18 04/29/18 04/29/18 12:46 14:02 17:38 WBC RBC Hgb Hct MCV MCH MCHC RDW Plt Count MPV Prelim Diff (Auto) Neut % (Auto) Lymph % (Auto) [place] % (Auto) Eos % (Auto) Baso % (Auto) Neut # (Auto) Lymph # (Auto) [place] # (Auto) Eos # (Auto) Baso # (Auto) WBC Differential Diff Scan Differential Comment Sodium Potassium Chloride Carbon Dioxide Anion Gap BUN Creatinine Estimated GFR POC Glucose 270 H 212 H Random Glucose Calcium Iron TIBC % Saturation MTS Gel Crossmatch See Detail 04/30/18 04/30/18 04/30/18 00:15 04:08 04:08 WBC 13.4 H RBC 3.07 L Hgb 8.1 L Hct 24.5 L MCV 79.6 L MCH 26.4 L MCHC 33.2 RDW 17.3 H Plt Count 357 MPV 7.7 Prelim Diff (Auto) Neut % (Auto) 70.6 H Lymph % (Auto) 14.7 [place] % (Auto) 9.9 H Eos % (Auto) 4.2 H Baso % (Auto) 0.6 Neut # (Auto) 9.5 H Lymph # (Auto) 2.0 [place] # (Auto) 1.3 H Eos # (Auto) 0.6 H Baso # (Auto) 0.1 WBC Differential . Diff Scan Differential Comment Auto diff final Sodium 143 Potassium 4.0 Chloride 106 Carbon Dioxide 27.8 Anion Gap 9 BUN 31 H Creatinine 1.72 H Estimated GFR 53 L POC Glucose 195 H Random Glucose 192 H Calcium 8.5 Iron TIBC % Saturation MTS Gel Crossmatch 04/30/18 06:08 WBC RBC Hgb Hct MCV MCH MCHC RDW Plt Count MPV Prelim Diff (Auto) Neut % (Auto) Lymph % (Auto) [place] % (Auto) Eos % (Auto) Baso % (Auto) Neut # (Auto) Lymph # (Auto) [place] # (Auto) Eos # (Auto) Baso # (Auto) WBC Differential Diff Scan Differential Comment Sodium Potassium Chloride Carbon Dioxide Anion Gap BUN Creatinine Estimated GFR POC Glucose 197 H Random Glucose Calcium Iron TIBC % Saturation MTS Gel Crossmatch Microbiology 04/28/18 14:20 Wound - Toe Gram Stain - Final 04/28/18 14:20 Wound - Toe Wound Culture - Preliminary Streptococcus species 04/28/18 14:20 Wound - Toe Gram Stain - Final 04/28/18 14:20 Wound - Toe Wound Culture - Preliminary No growth in 24 hours 04/28/18 14:20 Wound - Toe Fungal Smear - Final No fungal elements seen 04/28/18 14:20 Wound - Toe Fungal Smear - Final No fungal elements seen - Procedures DATE OF OPERATION: 04/15/2018 PREOPERATIVE DIAGNOSES: 1. Right extremity tissue loss. 2. Peripheral vascular disease. POSTOPERATIVE DIAGNOSES: 1. Right extremity tissue loss. 2. Peripheral vascular disease. PROCEDURE PERFORMED: Aortogram with right extremity angiogram. ATTENDING SURGEON: Moe Cullen MD Date of procedure: 04/22/18 Procedure: 1. R SFA-PT bypass (cryo) 2. R PT vein patch 3. Redo bypass Implants: cryo vein Anesthesia: GETA Surgeon: Moe Cullen MD Animal Caregiver: Poornima Benton Estimated blood loss (mL): 200 IV fluids (mL): 2,000 Urine output (mL): 325 Pathology: none sent Operation and Findings: very diseased perimalleolar PT patch and bypass from SFA to PT Palpable graft pulse DATE OF OPERATION: 04/25/2018 PREOPERATIVE DIAGNOSIS: Right foot gangrene. POSTOPERATIVE DIAGNOSIS: Right foot gangrene. PROCEDURE: 1. Right foot transmetatarsal amputation. 2. Right foot fifth metatarsal bone biopsy. Assessment and Plan - Plan Patient is a 43 year old AA male with past medical history of diabetes, diabetic neuropathy, HTN, HLD, status post right lower extremity bypass graft Dr. Cullen, right fourth toe amputation by Dr. Gates who came into the hospital for evaluation of worsening right foot diabetic infection. SIRS, secondary to Right foot infection Diabetic foot infection Seen by Vascular surgery non palpable distal pulses as Per Vascular specialist Status post right lower extremity angiogram Severe right lower extremity peripheral arterial disease with large component of small vessel disease, Moderate range left lower extremity DARRIUS's with reduced TBI's s/p Right Superficial Femoral Artery to perimalleolar PT with vein patch, as per Vascular specialist. 5th toe cellulitis vs osteomyelitis Meeting SIRS, Sepsis criteria HR 97 WBC 11.9, ESR 102, C-reactive protein 10.70, creatinine 1.31 -Foot xray showed Stable examination with postsurgical changes not significantly changed -Previous cultures of the foot 04/08/18 -Enterococcus faecalis, pseudomonas aeruginosa -he was placed on ampicillin, Levaquin based on sensitivities -Vancomycin, Zosyn given in the ED. culture group D Enterococcus Zosyn and Vanco. D/C now on Unasyn -ID consult, greatly appreciate assistance. -s/p redo R fem-PT with patch on 04/22/[address] Cullen [facility] surgeon, now with strong distal pulses and Doppler, okay to have been given to the perfusion - s/p right transmetatarsal amputation by Dr. Mackenzie 04/28. Wound care consulted for recommendations, appreciate assistance. - Pain control with P.O. Dilaudid and IV Morphine for breakthrough pain. Pain control better today. - WBC 16.7-->13.4 Abdominal distention Constipation: KUB completed on 04/26 with moderate amount of stool in the colon. - continue stool softeners and add MiraLax daily, encourage mobility. DM 2, insulin-dependent uncontrolled started on Levemir and continue sliding scale to medium dose. A1C improved A1C 14.3-->6.1 -Keep blood sugar below 180 gr/dl Levemir 25 BID, medium sliding scale, scheduled 5 units pre meal. -Blood sugars stable. HTN Uncontrolled -Currently on amlodipine to 10 mg, add HCTZ 12.5 mg daily, and on Clonidine 0.3 every 8 hours. Lisinopril on hold due to ALVERTO. -Blood pressure mildly elevated today likely due to D/C of Lisinopril, will add hydralazine. HLD continue Home medicines. Acute kidney injury -Baseline creatinine 0.85- Cr is worsened, improved w/ IV hydration, then developed fluid overload, and IVF held. 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 Consult nephrology for for further recommendations, appreciate assistance. - Start gentle hydration. Anemia, microcytic Multifactorial (post-op and SHAHBAZ) - 2 units of PRBC's to date given - H&H this A.m 8.09/16.5 - Iron studies consistent w/ SHAHBAZ, stat p.o replacement - Check Hemoccult Obesity strongly recommended diet and exercise. 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 ID to make final antibiotic recommendations, podiatry to make dressing change recommendations.
[2018-04-30] MEDS: Gabapentin 300 MG Capsule PO SCH ×3 (09:38→17:52)
[2018-04-30] MEDS: Senna/Docusate Sodium 8.6/50 MG Tablet PO SCH ×2 (09:39→21:26)
[2018-04-30] MEDS: amLODIPine 10 MG Tablet PO SCH (09:39)
[2018-04-30] MEDS: Polyethylene Glycol 3350 17 GM Packet PO SCH (10:03)
[2018-04-30] MEDS: Sod Chloride 0.9% Inj 1,000 ML IV.CONT SCH (11:33)
[2018-04-30] MEDS: Ferrous Sulfate 325 MG Tablet PO SCH ×2 (13:43→17:58)
[2018-04-30] MEDS: hydrALAZINE 10 MG Tablet PO SCH (17:52)
--- NOTE | 2018-04-30 18:44 | P.PNID ---
Subjective Remarks: worsening renal fnx improved edema UOP 600 cc /shift s/p R TMA c/o constipation, bloating Antibiotics: Amp/S Allergies/Adverse Reactions: Allergies No Known Allergies Allergy (Verified 04/13/18 12:35) Objective Vital Signs 04/29/18 20:13 04/30/18 00:03 04/30/18 08:00 Temperature 97.9 F 97.4 F L 97.5 F L Pulse Rate 81 89 87 Respiratory Rate 18 20 18 Blood Pressure 148/72 H 151/70 H 161/77 H Pulse Oximetry 100 100 96 04/30/18 12:00 Temperature 97.9 F Pulse Rate 84 Respiratory Rate 18 Blood Pressure 157/82 H Pulse Oximetry 100 Intake & Output 04/29/18 04/30/18 04/30/18 18:59 06:59 18:59 Intake Total 110 / 110 1080 / 1080 100 / 100 Output Total 700 / 700 Balance 110 / 110 380 / 380 100 / 100 Weight 120 kg Intake: IV 110 / 110 300 / 300 100 / 100 Unasyn Inj 3 GM In NS Inj 100 100 / 100 300 / 300 100 / 100 ML @ 200 mls/hr IV.SIG Q6H [facility] Rx#:[id number] NS Inj 250 ML @ 15 mls/hr IV. 10 / 10 SIG ONCE [facility] Rx#:[id number] Oral 780 / 780 Intake (Blood Product) Amt 0 / 0 Rbc As-3 Leukoreduced Unit 0 / 0 [id number] Output: Urine 700 / 700 Other: Date of Last Bowel Movement 04/27/18 04/28/18 14:20 Wound - Toe Acid Fast Bacilli Smear - Final No acid fast bacilli seen 04/28/18 14:20 Wound - Toe Mycobacterial Culture - Pending 04/28/18 14:20 Wound - Toe Acid Fast Bacilli Smear - Final No acid fast bacilli seen 04/28/18 14:20 Wound - Toe Mycobacterial Culture - Pending 04/28/18 14:20 Wound - Toe Gram Stain - Final 04/28/18 14:20 Wound - Toe Wound Culture - Preliminary Group D Enterococcus Tia albicans 04/28/18 14:20 Wound - Toe Gram Stain - Final 04/28/18 14:20 Wound - Toe Wound Culture - Preliminary No growth in 48 hours 04/28/18 14:20 Wound - Toe Fungal Smear - Final No fungal elements seen 04/28/18 14:20 Wound - Toe Fungal Culture - Pending 04/28/18 14:20 Wound - Toe Fungal Smear - Final No fungal elements seen 04/28/18 14:20 Wound - Toe Fungal Culture - Pending Lab - Hematology Results 04/29/18 04/29/18 04/30/18 00:11 10:07 04:08 WBC 16.7 H 13.4 H RBC 2.76 L 3.07 L Hgb 10.0 L D 7.2 L D 8.1 L Hct 31.0 L 21.5 L 24.5 L MCV 77.8 L 79.6 L MCH 26.0 L 26.4 L MCHC 33.5 33.2 RDW 16.9 17.3 H Plt Count 356 357 MPV 7.8 7.7 Prelim Diff (Auto) Slide review pending Neut % (Auto) 79.8 H 70.6 H Lymph % (Auto) 10.0 14.7 [place] % (Auto) 9.2 H 9.9 H Eos % (Auto) 0.6 4.2 H Baso % (Auto) 0.4 0.6 Neut # (Auto) 13.4 H 9.5 H Lymph # (Auto) 1.7 2.0 [place] # (Auto) 1.5 H 1.3 H Eos # (Auto) 0.1 0.6 H Baso # (Auto) 0.1 0.1 WBC Differential . . Diff Scan Auto diff confirmed Differential Comment . Auto diff final Lab - Chemistry Results 04/26/18 04/28/18 04/29/18 16:55 18:50 00:10 Sodium Potassium Chloride Carbon Dioxide Anion Gap BUN Creatinine Estimated GFR POC Glucose 97 189 H 383 H Random Glucose Calcium Iron TIBC % Saturation 04/29/18 04/29/18 04/29/18 00:11 05:13 10:07 Sodium 137 137 Potassium 4.8 D 4.4 Chloride 104 102 Carbon Dioxide 24.5 23.7 Anion Gap 9 11 BUN 27 H 29 H Creatinine 1.62 H 1.65 H Estimated GFR 57 L 56 L POC Glucose 302 H Random Glucose 350 H D 235 H D Calcium 8.5 8.7 Iron 28 L TIBC 164 L % Saturation 17.1 L 04/29/18 04/29/18 04/30/18 14:02 17:38 00:15 Sodium Potassium Chloride Carbon Dioxide Anion Gap BUN Creatinine Estimated GFR POC Glucose 270 H 212 H 195 H Random Glucose Calcium Iron TIBC % Saturation 04/30/18 04/30/18 04/30/18 04:08 06:08 12:23 Sodium 143 Potassium 4.0 Chloride 106 Carbon Dioxide 27.8 Anion Gap 9 BUN 31 H Creatinine 1.72 H Estimated GFR 53 L POC Glucose 197 H 251 H Random Glucose 192 H Calcium 8.5 Iron TIBC % Saturation 04/30/18 17:39 Sodium Potassium Chloride Carbon Dioxide Anion Gap BUN Creatinine Estimated GFR POC Glucose 193 H Random Glucose Calcium Iron TIBC % Saturation Imaging: ITS Impressions Foot X-Ray 04/13/18 12:42 CONCLUSION: Stable examination with postsurgical changes not significantly changed. Extremity Arterial Study 04/14/18 00:00 CONCLUSION: 1. Severe right lower extremity peripheral arterial disease with large component of small vessel disease. 2. Moderate range left lower extremity DARRIUS's with reduced TBI's consistent with component of small vessel disease. 3. Consider CT angiography for further evaluation. Foot MRI 04/17/18 00:00 CONCLUSION: 1. There is bone marrow edema with abnormal enhancement suspicious for osteomyelitis in the fifth metacarpal head, third metacarpal head, and proximal phalanx of the third digit. 2. Nonspecific marrow edema is present in the proximal phalanx of the fifth digit. 3. Diffuse subcutaneous edema with a wound along the dorsal aspect of the foot superficial to the distal third metacarpal and expected location of the distal fourth metacarpal. Renal Ultrasound 04/20/18 00:00 CONCLUSION: 1. Limited evaluation secondary to body habitus. No evidence of renal artery stenosis Abdomen X-Ray 04/26/18 00:00 CONCLUSION: Moderate stool in the colon. Chest X-Ray 04/27/18 00:00 CONCLUSION: Diffuse infiltrates are noted bilaterally consistent with moderate congestion or pneumonia. Clinical correlation is recommended. Physical Exam: GENERAL: NAD morbidly obese SKIN: Warm and dry. no rash HEAD: Atraumatic. Normocephalic. EYES: Pupils equal and round. No scleral icterus. No injection or drainage. ENT: No nasal bleeding or discharge. Mucous membranes pink and moist. NECK: Trachea midline. No JVD. CARDIOVASCULAR: Regular rate and rhythm. RESPIRATORY: No accessory muscle use. Clear to auscultation. Breath sounds equal bilaterally. GASTROINTESTINAL: Abdomen soft, non-tender, nondistended. Hepatic and splenic margins not palpable. MUSCULOSKELETAL: Extremities without clubbing, cyanosis, + improved edema, much softer. sp R RMA< dressing inrtact NEUROLOGICAL: Awake and alert. Non focal. Normal speech. PSYCHIATRIC: Appropriate mood and affect; insight and judgment normal. Assessment and Plan - Plan PVD, both large and small vessel dz sp revasc Tobaccois - pt still smokes DM 5th digit vasc gangrene and osteo of R foot fifth metacarpal head, third metacarpal head, and proximal phalanx of the third digit. he grew enterococcus along with 3+ enteric GNBs ALVERTO cont UNASYN add fluconazol monitor renal fnx agree with renal consult chk urine eos
--- NOTE | 2018-04-30 19:59 | P.CONNP ---
History of Present Illness Service: Nephrology Consult date: 04/30/18 Requesting Physician: Skip Ramírez Reason for Consult: Acute renal failure Primary Care Provider: UNKNOWN Chief Complaint: "Foot infection" History of Present Illness: 43-year-old -[place] male with history of diabetes, hypertension, peripheral vascular disease, diabetic foot ulcer on the right foot transmetatarsal amputation and bypass surgery, he has some ongoing drainage through the wound and edema buildup, his creatinine has been fluctuating between 1.2-1.7 he has underwent aortogram earlier and his baseline creatinine was 0.8. Patient states that he has been constipated he has received an enema with some relief and he is constipated again over the past few days. He is able to void without any difficulty denies any dysuria or burning of pain. Review of Systems Constitutional: Reports weight gain Eyes: Reports change in vision Cardiovascular: Reports leg swelling Respiratory: Reports other Gastrointestinal: Reports constipation Musculoskeletal: Reports abnormal walking Skin/Breast: Reports sores Neurologic: Reports weakness Psychiatric: Reports anxiety PMFSH - History History Provided By: Patient - Medical History Medical History: Medical History (Last Reviewed 04/28/18 @ 09:11 by Janee Tolbert RN) HLD (hyperlipidemia) Amputated toe Diabetes Hypertension - Surgical History Surgical History: Surgical History (Last Reviewed 04/28/18 @ 08:59 by Rosalina Gee) History of arthroplasty of left ankle Hx of CABG - Family History Family History: Family History (Last Reviewed 04/27/18 @ 16:51 by Janeen Bolanos MD) Mother DM type 2 (diabetes mellitus, type 2) Father DM type 2 (diabetes mellitus, type 2) - Tobacco History Second Hand Smoke Exposure: Yes Tobacco Use In Past 30 Days: Yes Smoking Status: Current every day smoker Tobacco Type: Cigarettes Packs Per Day: 0.5 - Alcohol History How Often Do You Have a Drink Containing Alcohol: Never - Substance Use History Substance History: No History of Abuse - Travel History Recent Travel in the [place] Within the Last 8 Weeks: No Recent Travel Out of the Country Within the Last 8 Weeks: No - Immunization History Tetanus Immunization: >5 Years Hx Influenza Vaccine This Season: No Medications and Allergies Active Medications: Active Medications Hydrocodone Bitart/Acetaminophen ([place] 5/325) 1 tab PO Q4H PRN PRN Reason: PAIN SCALE 3-6 Al Hydroxide/Mg Hydroxide (Milk Of Magnesia Liq) 30 ml PO Q12H PRN PRN Reason: Mild Constipation Last Admin: 04/27/18 09:01 Dose: 30 ml Amlodipine Besylate (Norvasc) 10 mg PO DAILY [facility] Last Admin: 04/30/18 09:39 Dose: 10 mg Aspirin (Ecotrin) 81 mg PO DAILY [facility] Last Admin: 04/30/18 09:35 Dose: 81 mg Atorvastatin Calcium (Lipitor) 40 mg PO DAILY [facility] Last Admin: 04/30/18 09:36 Dose: 40 mg Bisacodyl (Dulcolax Supp) 10 mg RECTAL DAILY PRN PRN Reason: SEVERE CONSITIPATION Last Admin: 04/26/18 17:30 Dose: 10 mg Clonidine HCl (Catapres) 0.3 mg PO Q8H [facility] Last Admin: 04/30/18 13:32 Dose: 0.3 mg Dextrose (D50w Vial) 50 ml IV.PUSH UNSCH PRN PRN Reason: PER HYPOGLYCEMIA PROTOCOL Ferrous Sulfate (Ferosul) 325 mg PO BID@1200,1700 [facility] Last Admin: 04/30/18 17:58 Dose: 325 mg Gabapentin (Neurontin) 300 mg PO TID [facility] Last Admin: 04/30/18 17:52 Dose: 300 mg Glucagon (Glucagon Inj) 1 mg OTHER PRN PRN PRN Reason: for Hypoglycemia Protocol Glycerin (Glycerin Adult Supp) 2 gm RECTAL DAILY PRN PRN Reason: CONSTIPATION Heparin Sodium (Porcine) (Heparin Inj) 5,000 units SQ Q12HR [facility] Last Admin: 04/30/18 08:46 Dose: 5,000 units Hydralazine HCl (Apresoline) 10 mg PO TID [facility] Last Admin: 04/30/18 17:52 Dose: 10 mg Hydrochlorothiazide (Microzide) 12.5 mg PO DAILY [facility] Last Admin: 04/30/18 09:37 Dose: 12.5 mg Hydromorphone HCl (Dilaudid) 2 mg PO Q6H PRN PRN Reason: PAIN SCALE 7 TO 10 SEVERE Last Admin: 04/30/18 14:24 Dose: 2 mg Ampicillin Sodium/Sulbactam (Sodium 3 gm/ Sodium Chloride) 100 mls @ 200 mls/ hr IV.SIG Q6H [facility] Last Infusion: 04/30/18 19:42 Dose: Infused Sodium Chloride (Ns Inj) 1,000 mls @ 84 mls/hr IV.CONT .[id number] [facility] Last Admin: 04/30/18 11:33 Dose: 84 mls/hr Fluconazole (Diflucan 200 Mg Premix Bag) 100 mls @ 100 mls/hr IV.SIG Q24H [facility] Insulin Aspart (Novolog Insulin Correctional Sugar Inj) 0 unit SQ 07,13,19,01 [facility]; Protocol Last Admin: 04/30/18 13:31 Dose: 7 unit Insulin Aspart (Novolog Insulin Correctional Sugar Inj) 5 unit SQ TIDAC [facility]; Protocol Last Admin: 04/30/18 17:53 Dose: 5 unit Insulin Detemir (Levemir Inj) 25 unit SQ BID [facility]; Protocol Last Admin: 04/30/18 08:47 Dose: 25 unit Lactulose (Lactulose Liq) 30 ml PO DAILY PRN PRN Reason: CONSTIPATION Last Admin: 04/26/18 02:44 Dose: 30 ml Lisinopril (Prinivil) 40 mg PO BID [facility] Last Admin: 04/29/18 10:05 Dose: 40 mg Morphine Sulfate (Morphine Inj) 4 mg IV.PUSH Q3H PRN PRN Reason: BREAKTHROUGH PAIN Last Admin: 04/30/18 17:59 Dose: 4 mg Naloxone HCl (Narcan Inj) 0.4 mg IV.PUSH UNSCH PRN PRN Reason: SEE LABEL COMMENTS Ondansetron HCl (Zofran Inj) 4 mg IV.PUSH Q6H PRN PRN Reason: Nausea, vomiting Polyethylene Glycol (Miralax) 17 gm PO DAILY [facility] Last Admin: 04/30/18 10:03 Dose: 17 gm Senna/Docusate Sodium (Trixie-Colace) 1 tab PO BID [facility] Last Admin: 04/30/18 09:39 Dose: 1 tab Sennosides (Senokot) 17.2 mg PO Q12H PRN PRN Reason: Moderate Constipation Last Admin: 04/26/18 10:17 Dose: 17.2 mg Simethicone (Phazyme Chew) 125 mg PO TID PRN PRN Reason: GAS RETENTION Last Admin: 04/24/18 11:03 Dose: 125 mg Sodium Chloride (Ns Flush) 2 ml IV.FLUSH PRN PRN PRN Reason: FLUSH AFTER USING IV ACCESS Last Admin: 04/28/18 21:34 Dose: 2 ml Sodium Chloride (Ns Flush) 2 ml IV.FLUSH BID [facility] Last Admin: 04/30/18 11:37 Dose: 2 ml Allergies Allergy/AdvReac Type Severity Reaction Status Date / Time No Known Allergies Allergy Verified 04/13/18 12:35 Home Medications Medication Instructions Recorded Confirmed Type amlodipine 5 mg PO DAILY 02/21/18 04/13/18 History amoxicillin 500 mg PO Q8HR 02/21/18 04/13/18 History aspirin [Aspirin Low Dose] 81 mg PO DAILY 02/21/18 04/13/18 History atorvastatin 40 mg PO DAILY 02/21/18 04/13/18 History clopidogrel [Plavix] 75 mg PO DAILY 02/21/18 04/13/18 History gabapentin [Neurontin] 300 mg PO TID 02/21/18 04/13/18 History insulin regular human 40 unit SUB-Q BID 02/21/18 04/13/18 History lisinopril 10 mg PO DAILY 02/21/18 04/13/18 History oxycodone 5 mg PO Q4-6H 02/21/18 04/13/18 History levofloxacin [Levaquin] 750 mg PO DAILY 04/13/18 04/13/18 History Exam Vital signs: Vital Signs 04/29/18 20:13 04/30/18 00:03 04/30/18 08:00 Temperature 97.9 F 97.4 F L 97.5 F L Pulse Rate 81 89 87 Respiratory Rate 18 20 18 Blood Pressure 148/72 H 151/70 H 161/77 H Pulse Oximetry 100 100 96 04/30/18 12:00 Temperature 97.9 F Pulse Rate 84 Respiratory Rate 18 Blood Pressure 157/82 H Pulse Oximetry 100 Intake & Output 04/30/18 04/30/18 05/01/18 06:59 18:59 06:59 Intake Total 1080 / 1080 100 / 100 100 / 100 Output Total 700 / 700 Balance 380 / 380 100 / 100 100 / 100 Weight 120 kg Intake: IV 300 / 300 100 / 100 100 / 100 Unasyn Inj 3 GM In NS Inj 100 300 / 300 100 / 100 100 / 100 ML @ 200 mls/hr IV.SIG Q6H [facility] Rx#:[id number] Oral 780 / 780 Output: Urine 700 / 700 Other: Date of Last Bowel Movement 04/27/18 Results - Lab Results 04/30/18 04:08 04/30/18 04:08 Most recent lab results Calcium 8.5 mg/dL (8.5-10.1) 04/30/18 04:08 Assessment and Plan - Assessment (1) Acute renal failure Code(s): N17.9 - Acute kidney failure, unspecified Status: Acute (2) Diabetes Code(s): E11.9 - Type 2 diabetes mellitus without complications Status: Acute (3) Amputated toe of right foot Code(s): Z89.421 - Acquired absence of other right toe(s) Status: Acute - Plan I agree with hydration and continue to hold TERENCE inhibitor, give albumin 25 g twice a day Hold HCTZ Sorbitol for constipation Avoid nephrotoxins Avoid Fleet Enema Patient appears to have infections and the right foot and cellulitis with drainage Check urine eosinophils, urine protein to creatinine ratio, obtain ultrasound NORRIS and serum complement Continue to monitor BMP
[2018-04-30] MEDS ORDERED: Sorbitol 70% Liq 30 ML UDC PO ONE (20:00)
--- NOTE | 2018-04-30 20:01 | P.PNPOD ---
Subjective Interval history: s/p TMA Right foot, Dr Mackenzie, 04/28/18 Physical Exam Vital signs: Vital Signs 04/29/18 20:13 04/30/18 00:03 04/30/18 08:00 Temperature 97.9 F 97.4 F L 97.5 F L Pulse Rate 81 89 87 Respiratory Rate 18 20 18 Blood Pressure 148/72 H 151/70 H 161/77 H Pulse Oximetry 100 100 96 04/30/18 12:00 Temperature 97.9 F Pulse Rate 84 Respiratory Rate 18 Blood Pressure 157/82 H Pulse Oximetry 100 Intake & Output 04/30/18 04/30/18 05/01/18 06:59 18:59 06:59 Intake Total 1080 / 1080 100 / 100 100 / 100 Output Total 700 / 700 Balance 380 / 380 100 / 100 100 / 100 Weight 120 kg Intake: IV 300 / 300 100 / 100 100 / 100 Unasyn Inj 3 GM In NS Inj 100 300 / 300 100 / 100 100 / 100 ML @ 200 mls/hr IV.SIG Q6H [facility] Rx#:[id number] Oral 780 / 780 Output: Urine 700 / 700 Other: Date of Last Bowel Movement 04/27/18 Narrative: bandage right foot clean, dry, intact. The wound from bypass to medial ankle/ lower leg with serous drainage coming from sutures and undressed. Patient relates it has been undressed and draining x 2 days Medications and Allergies Active Medications: Active Medications Hydrocodone Bitart/Acetaminophen ([place] 5/325) 1 tab PO Q4H PRN PRN Reason: PAIN SCALE 3-6 Al Hydroxide/Mg Hydroxide (Milk Of Magnesia Liq) 30 ml PO Q12H PRN PRN Reason: Mild Constipation Last Admin: 04/27/18 09:01 Dose: 30 ml Amlodipine Besylate (Norvasc) 10 mg PO DAILY [facility] Last Admin: 04/30/18 09:39 Dose: 10 mg Aspirin (Ecotrin) 81 mg PO DAILY [facility] Last Admin: 04/30/18 09:35 Dose: 81 mg Atorvastatin Calcium (Lipitor) 40 mg PO DAILY [facility] Last Admin: 04/30/18 09:36 Dose: 40 mg Bisacodyl (Dulcolax Supp) 10 mg RECTAL DAILY PRN PRN Reason: SEVERE CONSITIPATION Last Admin: 04/26/18 17:30 Dose: 10 mg Clonidine HCl (Catapres) 0.3 mg PO Q8H [facility] Last Admin: 04/30/18 13:32 Dose: 0.3 mg Dextrose (D50w Vial) 50 ml IV.PUSH UNSCH PRN PRN Reason: PER HYPOGLYCEMIA PROTOCOL Ferrous Sulfate (Ferosul) 325 mg PO BID@1200,1700 [facility] Last Admin: 04/30/18 17:58 Dose: 325 mg Gabapentin (Neurontin) 300 mg PO TID [facility] Last Admin: 04/30/18 17:52 Dose: 300 mg Glucagon (Glucagon Inj) 1 mg OTHER PRN PRN PRN Reason: for Hypoglycemia Protocol Glycerin (Glycerin Adult Supp) 2 gm RECTAL DAILY PRN PRN Reason: CONSTIPATION Heparin Sodium (Porcine) (Heparin Inj) 5,000 units SQ Q12HR [facility] Last Admin: 04/30/18 08:46 Dose: 5,000 units Hydralazine HCl (Apresoline) 10 mg PO TID [facility] Last Admin: 04/30/18 17:52 Dose: 10 mg Hydrochlorothiazide (Microzide) 12.5 mg PO DAILY [facility] Last Admin: 04/30/18 09:37 Dose: 12.5 mg Hydromorphone HCl (Dilaudid) 2 mg PO Q6H PRN PRN Reason: PAIN SCALE 7 TO 10 SEVERE Last Admin: 04/30/18 14:24 Dose: 2 mg Ampicillin Sodium/Sulbactam (Sodium 3 gm/ Sodium Chloride) 100 mls @ 200 mls/ hr IV.SIG Q6H [facility] Last Infusion: 04/30/18 19:42 Dose: Infused Sodium Chloride (Ns Inj) 1,000 mls @ 84 mls/hr IV.CONT .[id number] [facility] Last Admin: 04/30/18 11:33 Dose: 84 mls/hr Fluconazole (Diflucan 200 Mg Premix Bag) 100 mls @ 100 mls/hr IV.SIG Q24H [facility] Albumin Human (Flexbumin 25% Inj) 100 mls @ 60 mls/hr IV.SIG Q12H [facility] Insulin Aspart (Novolog Insulin Correctional Sugar Inj) 0 unit SQ 07,13,19, [facility]; Protocol Last Admin: 04/30/18 13:31 Dose: 7 unit Insulin Aspart (Novolog Insulin Correctional Sugar Inj) 5 unit SQ TIDAC [facility]; Protocol Last Admin: 04/30/18 17:53 Dose: 5 unit Insulin Detemir (Levemir Inj) 25 unit SQ BID [facility]; Protocol Last Admin: 04/30/18 08:47 Dose: 25 unit Lactulose (Lactulose Liq) 30 ml PO DAILY PRN PRN Reason: CONSTIPATION Last Admin: 04/26/18 02:44 Dose: 30 ml Lisinopril (Prinivil) 40 mg PO BID [facility] Last Admin: 04/29/18 10:05 Dose: 40 mg Morphine Sulfate (Morphine Inj) 4 mg IV.PUSH Q3H PRN PRN Reason: BREAKTHROUGH PAIN Last Admin: 04/30/18 17:59 Dose: 4 mg Naloxone HCl (Narcan Inj) 0.4 mg IV.PUSH UNSCH PRN PRN Reason: SEE LABEL COMMENTS Ondansetron HCl (Zofran Inj) 4 mg IV.PUSH Q6H PRN PRN Reason: Nausea, vomiting Polyethylene Glycol (Miralax) 17 gm PO DAILY [facility] Last Admin: 04/30/18 10:03 Dose: 17 gm Senna/Docusate Sodium (Trixie-Colace) 1 tab PO BID [facility] Last Admin: 04/30/18 09:39 Dose: 1 tab Sennosides (Senokot) 17.2 mg PO Q12H PRN PRN Reason: Moderate Constipation Last Admin: 04/26/18 10:17 Dose: 17.2 mg Simethicone (Phazyme Chew) 125 mg PO TID PRN PRN Reason: GAS RETENTION Last Admin: 04/24/18 11:03 Dose: 125 mg Sodium Chloride (Ns Flush) 2 ml IV.FLUSH PRN PRN PRN Reason: FLUSH AFTER USING IV ACCESS Last Admin: 04/28/18 21:34 Dose: 2 ml Sodium Chloride (Ns Flush) 2 ml IV.FLUSH BID [facility] Last Admin: 04/30/18 11:37 Dose: 2 ml Sorbitol (Sorbitol 70% Liq) 60 ml PO ONCE ONE Stop: 04/30/18 19:47 Allergies Allergy/AdvReac Type Severity Reaction Status Date / Time No Known Allergies Allergy Verified 04/13/18 12:35 Home Medications Medication Instructions Recorded Confirmed Type amlodipine 5 mg PO DAILY 02/21/18 04/13/18 History amoxicillin 500 mg PO Q8HR 02/21/18 04/13/18 History aspirin [Aspirin Low Dose] 81 mg PO DAILY 02/21/18 04/13/18 History atorvastatin 40 mg PO DAILY 02/21/18 04/13/18 History clopidogrel [Plavix] 75 mg PO DAILY 02/21/18 04/13/18 History gabapentin [Neurontin] 300 mg PO TID 02/21/18 04/13/18 History insulin regular human 40 unit SUB-Q BID 02/21/18 04/13/18 History lisinopril 10 mg PO DAILY 02/21/18 04/13/18 History oxycodone 5 mg PO Q4-6H 02/21/18 04/13/18 History levofloxacin [Levaquin] 750 mg PO DAILY 04/13/18 04/13/18 History Results - Labs CBC & Chem 7: 04/30/18 04:08 04/30/18 04:08 Laboratory Results - last 24 hr 04/30/18 04/30/18 04/30/18 00:15 04:08 04:08 WBC 13.4 H RBC 3.07 L Hgb 8.1 L Hct 24.5 L MCV 79.6 L MCH 26.4 L MCHC 33.2 RDW 17.3 H Plt Count 357 MPV 7.7 Neut % (Auto) 70.6 H Lymph % (Auto) 14.7 Falls % (Auto) 9.9 H Eos % (Auto) 4.2 H Baso % (Auto) 0.6 Neut # (Auto) 9.5 H Lymph # (Auto) 2.0 [place] # (Auto) 1.3 H Eos # (Auto) 0.6 H Baso # (Auto) 0.1 WBC Differential . Differential Comment Auto diff final Sodium 143 Potassium 4.0 Chloride 106 Carbon Dioxide 27.8 Anion Gap 9 BUN 31 H Creatinine 1.72 H Estimated GFR 53 L POC Glucose 195 H Random Glucose 192 H Calcium 8.5 04/30/18 04/30/18 04/30/18 06:08 12:23 17:39 WBC RBC Hgb Hct MCV MCH MCHC RDW Plt Count MPV Neut % (Auto) Lymph % (Auto) Falls % (Auto) Eos % (Auto) Baso % (Auto) Neut # (Auto) Lymph # (Auto) Falls # (Auto) Eos # (Auto) Baso # (Auto) WBC Differential Differential Comment Sodium Potassium Chloride Carbon Dioxide Anion Gap BUN Creatinine Estimated GFR POC Glucose 197 H 251 H 193 H Random Glucose Calcium Microbiology 04/28/18 14:20 Wound - Toe Acid Fast Bacilli Smear - Final No acid fast bacilli seen 04/28/18 14:20 Wound - Toe Acid Fast Bacilli Smear - Final No acid fast bacilli seen 04/28/18 14:20 Wound - Toe Gram Stain - Final 04/28/18 14:20 Wound - Toe Wound Culture - Preliminary Group D Enterococcus Tia albicans 04/28/18 14:20 Wound - Toe Gram Stain - Final 04/28/18 14:20 Wound - Toe Wound Culture - Preliminary No growth in 48 hours - Procedures DATE OF OPERATION: 04/15/2018 PREOPERATIVE DIAGNOSES: 1. Right extremity tissue loss. 2. Peripheral vascular disease. POSTOPERATIVE DIAGNOSES: 1. Right extremity tissue loss. 2. Peripheral vascular disease. PROCEDURE PERFORMED: Aortogram with right extremity angiogram. ATTENDING SURGEON: Moe Cullen MD Date of procedure: 04/22/18 Procedure: 1. R SFA-PT bypass (cryo) 2. R PT vein patch 3. Redo bypass Implants: cryo vein Anesthesia: GETA Surgeon: Moe Cullen MD Printing Manager: Poornima Benton Estimated blood loss (mL): 200 IV fluids (mL): 2,000 Urine output (mL): 325 Pathology: none sent Operation and Findings: very diseased perimalleolar PT patch and bypass from SFA to PT Palpable graft pulse DATE OF OPERATION: 04/25/2018 PREOPERATIVE DIAGNOSIS: Right foot gangrene. POSTOPERATIVE DIAGNOSIS: Right foot gangrene. PROCEDURE: 1. Right foot transmetatarsal amputation. 2. Right foot fifth metatarsal bone biopsy. Assessment and Plan - Assessment (1) Gangrene of right foot Code(s): I96 - Gangrene, not elsewhere classified Status: Acute (2) Diabetic foot infection Code(s): E11.628 - Type 2 diabetes mellitus with other skin complications; L08.9 - Local infection of the skin and subcutaneous tissue, unspecified Status: Acute - Plan Plan to change bandage tomorrow Heel contact weightbearing only right foot in surgical shoe Awaiting surgical pathology/bone biopsy
[2018-04-30] MEDS: Albumin Human 25% Inj 100 ML IV.SIG SCH (21:28)
[2018-04-30 23:43] LABS: Protein/Creatinine Ratio,Urine 1.75 (0.00-0.14)
[2018-05-01] MEDS: Sod Chloride 0.9% Inj 1,000 ML IV.CONT SCH ×2 (00:22→12:31)
[2018-05-01] MEDS: Ampicillin/Sulbactam Inj 3 GM in Sodium Chloride 0.9% Inj 100 ML IV.SIG SCH ×4 (00:25→17:26)
[2018-05-01] MEDS: Insulin NovoLOG Aspart Correctional Sugar Inj SQ SCH ×7 (00:31→18:02)
[2018-05-01] MEDS: Morphine Inj 4 MG/ML Vial IV.PUSH PRN ×5 (00:32→20:28)
[2018-05-01 07:28] LABS: Baso # (Auto) 0.1 th/mm3 (0.0-0.2); Baso % (Auto) 0.6 % (0.0-2.0); Eos # (Auto) 0.5 th/mm3 (0.0-0.4); Eos % (Auto) 4.7 % (0.0-4.0); Hematocrit 24.2 % (39.0-51.0); Hemoglobin 7.9 gm/dL (13.0-17.0); Lymph # (Auto) 1.9 th/mm3 (1.0-4.8); Lymph % (Auto) 17.9 % (9.0-44.0); Mean Corpuscular HGB Conc 32.6 % (32.0-36.0); Mean Corpuscular Volume 79.7 fL (80.0-100.0); Mean Platelet Volume 7.4 fL (7.0-11.0); Mono # (Auto) 1.2 th/mm3 (0.0-0.9); Neut % (Auto) 65.8 % (16.0-70.0); Platelet Count 400 th/mm3 (150-450); Red Blood Count 3.03 mil/mm3 (4.50-5.90); White Blood Count 10.6 th/mm3 (4.0-11.0)
[2018-05-01 07:44] LABS: Calcium 8.7 mg/dL (8.5-10.1); Carbon Dioxide 26.6 meq/L (21.0-32.0); Potassium 3.9 meq/L (3.5-5.1)
[2018-05-01 07:46] LABS: Complement C3 161 mg/dL (90-180)
[2018-05-01] MEDS: Albumin Human 25% Inj 100 ML IV.SIG SCH ×2 (09:10→20:25)
[2018-05-01] MEDS: amLODIPine 10 MG Tablet PO SCH (09:11)
[2018-05-01] MEDS: hydrALAZINE 10 MG Tablet PO SCH (09:11)
[2018-05-01] MEDS: Gabapentin 300 MG Capsule PO SCH ×3 (09:11→17:27)
[2018-05-01] MEDS: Senna/Docusate Sodium 8.6/50 MG Tablet PO SCH ×2 (09:11→20:28)
[2018-05-01] MEDS: Heparin - SQ 10,000 UNITS/ML Vial SQ SCH ×2 (09:12→20:26)
[2018-05-01] MEDS: Insulin Detemir Inj 1,000 UNIT/10 ML Vial SQ SCH ×2 (09:12→20:27)
[2018-05-01] MEDS: Polyethylene Glycol 3350 17 GM Packet PO SCH (09:15)
--- NOTE | 2018-05-01 10:11 | P.PNIM ---
Subjective Interval history: Seen in follow-up for diabetic foot ulcer with osteomyelitis. Doing well today. Continues to have pain in his right foot. Reports he had a bowel movement last night. Tolerating oral intake. Physical Exam Vital signs: Vital Signs 04/30/18 12:00 04/30/18 20:34 05/01/18 00:10 Temperature 97.9 F 98.3 F 97.8 F Pulse Rate 84 95 H 89 Respiratory Rate 18 18 20 Blood Pressure 157/82 H 165/82 H 168/83 H Pulse Oximetry 100 96 98 05/01/18 08:00 Temperature 97.9 F Pulse Rate 85 Respiratory Rate 17 Blood Pressure 163/79 H Pulse Oximetry 98 Intake & Output 04/30/18 05/01/18 05/01/18 18:59 06:59 18:59 Intake Total 100 / 100 2280 / 2280 Output Total 1600 / 1600 Balance 100 / 100 680 / 680 Weight 264 lb 8.875 oz Intake: IV 100 / 100 1500 / 1500 NS Inj 1,000 ML @ 84 mls/hr IV. 1000 / 1000 CONT .[id number] [facility] Rx#:[id number] Flexbumin 25% Inj 100 ML @ 60 100 / 100 mls/hr IV.SIG Q12H [facility] Rx#: [id number] Unasyn Inj 3 GM In NS Inj 100 100 / 100 300 / 300 ML @ 200 mls/hr IV.SIG Q6H [facility] Rx#:[id number] Diflucan 200 mg Premix Bag 100 100 / 100 ML @ 100 mls/hr IV.SIG Q24H [facility] Rx#:[id number] Oral 780 / 780 Output: Urine 1600 / 1600 Narrative: GENERAL: Well-developed well-nourished. Obese. In no acute distress. SKIN: Warm and dry. No lesions noted. CARDIOVASCULAR: Regular rate and rhythm. No murmur appreciated. RESPIRATORY: No accessory muscle use. Clear to auscultation. Breath sounds equal bilaterally. GASTROINTESTINAL: Abdomen soft, non-tender, nondistended. Bowel sounds x4. MUSCULOSKELETAL: Status post right foot amputation with clean dressing in place. No clubbing or cyanosis. No edema. NEUROLOGICAL: Awake and alert. Moves upper and lower extremities spontaneously. Normal speech. PSYCHIATRIC: Appropriate mood and affect; insight and judgment normal. - Urinary Catheter Management Indwelling Urethral Catheter Cath placed during this visit: yes, but has since been removed by the nurse Reason for continuing: Decision to DC catheter Insertion date: 04/22/18 Insertion time: 11:00 Removal date: 04/23/18 Removal time: 09:15 Results - Labs CBC & Chem 7: 05/01/18 04:03 05/01/18 04:03 Laboratory Results - last 24 hr 04/30/18 04/30/18 04/30/18 12:23 17:39 21:22 WBC RBC Hgb Hct MCV MCH MCHC RDW Plt Count MPV Neut % (Auto) Lymph % (Auto) [place] % (Auto) Eos % (Auto) Baso % (Auto) Neut # (Auto) Lymph # (Auto) [place] # (Auto) Eos # (Auto) Baso # (Auto) WBC Differential Differential Comment Sodium Potassium Chloride Carbon Dioxide Anion Gap BUN Creatinine Estimated GFR POC Glucose 251 H 193 H 198 H Random Glucose Calcium Urine Eosinophils Ur Random Creatinine U Random Total Protein Protein/Creatinin Ratio Complement C3 Complement C4 04/30/18 04/30/18 05/01/18 23:20 23:20 00:29 WBC RBC Hgb Hct MCV MCH MCHC RDW Plt Count MPV Neut % (Auto) Lymph % (Auto) [place] % (Auto) Eos % (Auto) Baso % (Auto) Neut # (Auto) Lymph # (Auto) [place] # (Auto) Eos # (Auto) Baso # (Auto) WBC Differential Differential Comment Sodium Potassium Chloride Carbon Dioxide Anion Gap BUN Creatinine Estimated GFR POC Glucose 229 H Random Glucose Calcium Urine Eosinophils None seen Ur Random Creatinine 37 U Random Total Protein 64.9 H Protein/Creatinin Ratio 1.75 H Complement C3 Complement C4 05/01/18 05/01/18 05/01/18 04:03 04:03 04:03 WBC 10.6 RBC 3.03 L Hgb 7.9 L Hct 24.2 L MCV 79.7 L MCH 26.0 L MCHC 32.6 RDW 18.0 H Plt Count 400 MPV 7.4 Neut % (Auto) 65.8 Lymph % (Auto) 17.9 [place] % (Auto) 11.0 H Eos % (Auto) 4.7 H Baso % (Auto) 0.6 Neut # (Auto) 7.0 Lymph # (Auto) 1.9 [place] # (Auto) 1.2 H Eos # (Auto) 0.5 H Baso # (Auto) 0.1 WBC Differential . Differential Comment Auto diff final Sodium 143 Potassium 3.9 Chloride 107 Carbon Dioxide 26.6 Anion Gap 9 BUN 27 H Creatinine 1.46 H Estimated GFR 64 L POC Glucose Random Glucose 142 H Calcium 8.7 Urine Eosinophils Ur Random Creatinine U Random Total Protein Protein/Creatinin Ratio Complement C3 161 Complement C4 44 H 05/01/18 06:06 WBC RBC Hgb Hct MCV MCH MCHC RDW Plt Count MPV Neut % (Auto) Lymph % (Auto) [place] % (Auto) Eos % (Auto) Baso % (Auto) Neut # (Auto) Lymph # (Auto) [place] # (Auto) Eos # (Auto) Baso # (Auto) WBC Differential Differential Comment Sodium Potassium Chloride Carbon Dioxide Anion Gap BUN Creatinine Estimated GFR POC Glucose 165 H Random Glucose Calcium Urine Eosinophils Ur Random Creatinine U Random Total Protein Protein/Creatinin Ratio Complement C3 Complement C4 Microbiology 04/28/18 14:20 Wound - Toe Gram Stain - Final 04/28/18 14:20 Wound - Toe Wound Culture - Final No growth in 72 hours (aerobically and anaerobically ) 04/28/18 14:20 Wound - Toe Acid Fast Bacilli Smear - Final No acid fast bacilli seen 04/28/18 14:20 Wound - Toe Acid Fast Bacilli Smear - Final No acid fast bacilli seen 04/28/18 14:20 Wound - Toe Gram Stain - Final 04/28/18 14:20 Wound - Toe Wound Culture - Preliminary Group D Enterococcus Tia albicans - Procedures DATE OF OPERATION: 04/15/2018 PREOPERATIVE DIAGNOSES: 1. Right extremity tissue loss. 2. Peripheral vascular disease. POSTOPERATIVE DIAGNOSES: 1. Right extremity tissue loss. 2. Peripheral vascular disease. PROCEDURE PERFORMED: Aortogram with right extremity angiogram. ATTENDING SURGEON: Moe Cullen MD Date of procedure: 04/22/18 Procedure: 1. R SFA-PT bypass (cryo) 2. R PT vein patch 3. Redo bypass Implants: cryo vein Anesthesia: GETA Surgeon: Moe Cullen MD Lean Consultant: Poornima Benton Estimated blood loss (mL): 200 IV fluids (mL): 2,000 Urine output (mL): 325 Pathology: none sent Operation and Findings: very diseased perimalleolar PT patch and bypass from SFA to PT Palpable graft pulse DATE OF OPERATION: 04/25/2018 PREOPERATIVE DIAGNOSIS: Right foot gangrene. POSTOPERATIVE DIAGNOSIS: Right foot gangrene. PROCEDURE: 1. Right foot transmetatarsal amputation. 2. Right foot fifth metatarsal bone biopsy. Assessment and Plan - Plan 43 year old AA male with past medical history of diabetes, diabetic neuropathy, HTN, HLD, status post right lower extremity bypass graft Dr. Cullen, right fourth toe amputation by Dr. Gates who came into the hospital for evaluation of worsening right foot diabetic infection. SIRS, secondary to Right foot infection Diabetic foot infection Seen by Vascular surgery non palpable distal pulses as Per Vascular specialist Status post right lower extremity angiogram Severe right lower extremity peripheral arterial disease with large component of small vessel disease, Moderate range left lower extremity DARRIUS's with reduced TBI's s/p Right Superficial Femoral Artery to perimalleolar PT with vein patch, as per Vascular specialist. -ID on board, will need PICC line for long-term antibiotic -WBC count down to normal limits today 5th toe osteomyelitis -Foot xray showed Stable examination with postsurgical changes not significantly changed -Previous cultures of the foot 04/08/18 -Enterococcus faecalis, pseudomonas aeruginosa -he was placed on ampicillin, Levaquin based on sensitivities -ID consult, greatly appreciate assistance. -s/p redo R fem-PT with patch on 04/22/[address] Cullen vas surgeon, now with strong distal pulses and Doppler, okay to have been given to the perfusion - s/p right transmetatarsal amputation by Dr. Mackenzie 04/28. Wound care consulted for recommendations, appreciate assistance. - Pain control with P.O. Dilaudid and IV Morphine for breakthrough pain. Constipation: KUB completed on 04/26 with moderate amount of stool in the colon. - Improved - continue stool softeners and add MiraLax daily, encourage mobility. DM 2, insulin-dependent -Keep blood sugar below 180 gr/dl Levemir 25 BID, medium sliding scale, scheduled 5 units pre meal. -Blood sugars stable. HTN, Uncontrolled -Continue amlodipine 10 -Change clonidine 0.3 mg to patch, at least while admitted -Lisinopril and HCTZ on hold with ALVERTO -Hydralazine added yesterday, increased dose today HLD continue Home medicines. Acute kidney injury -Baseline creatinine 0.85- Cr is worsened, improved w/ IV hydration, then developed fluid overload, and IVF held. Today creatinine back up now 1.7 -Consult nephrology for for further recommendations, appreciate assistance. -Continue gentle hydration. -DC diuretic -monitor Anemia, microcytic Multifactorial (post-op and SHAHBAZ) - 2 units of PRBC's to date given - Hemoglobin stable at 8 - Iron studies consistent w/ SHAHBAZ, p.o replacement - Hemoccult neg Morbid obesity -Lifestyle modifications including diet and exercise DVT prop SCD Heparin Discharge Planning: Awaiting clearance from specialists including infectious disease, podiatry, nephrology
[2018-05-01] MEDS: hydrALAZINE 25 MG Tablet PO SCH ×2 (12:09→17:27)
[2018-05-01] MEDS: Ferrous Sulfate 325 MG Tablet PO SCH ×2 (12:09→17:26)
--- NOTE | 2018-05-01 15:14 | P.PNPOD ---
Subjective Interval history: s/p Right TMA, Dr Mackenzie 04/28/18 Physical Exam Vital signs: Vital Signs 04/30/18 20:34 05/01/18 00:10 05/01/18 08:00 Temperature 98.3 F 97.8 F 97.9 F Pulse Rate 95 H 89 85 Respiratory Rate 18 20 17 Blood Pressure 165/82 H 168/83 H 163/79 H Pulse Oximetry 96 98 98 05/01/18 12:00 Temperature 98.1 F Pulse Rate 86 Respiratory Rate 17 Blood Pressure 157/74 H Pulse Oximetry 98 Intake & Output 04/30/18 05/01/18 05/01/18 18:59 06:59 18:59 Intake Total 100 / 100 2280 / 2280 1100 / 1100 Output Total 1600 / 1600 Balance 100 / 100 680 / 680 1100 / 1100 Weight 120 kg Intake: IV 100 / 100 1500 / 1500 1100 / 1100 NS Inj 1,000 ML @ 84 mls/hr IV. 1000 / 1000 1000 / 1000 CONT .[id number] [facility] Rx#:[id number] Flexbumin 25% Inj 100 ML @ 60 100 / 100 100 / 100 mls/hr IV.SIG Q12H [facility] Rx#: [id number] Unasyn Inj 3 GM In NS Inj 100 100 / 100 300 / 300 ML @ 200 mls/hr IV.SIG Q6H [facility] Rx#:[id number] Diflucan 200 mg Premix Bag 100 100 / 100 ML @ 100 mls/hr IV.SIG Q24H [facility] Rx#:[id number] Oral 780 / 780 Output: Urine 1600 / 1600 Narrative: Right foot with sutures intact and minimal to no drainage present. Reduced edema. No erythema. No purulence. Appears viable Medications and Allergies Active Medications: Active Medications Hydrocodone Bitart/Acetaminophen ([place] 5/325) 1 tab PO Q4H PRN PRN Reason: PAIN SCALE 3-6 Al Hydroxide/Mg Hydroxide (Milk Of Magnesia Liq) 30 ml PO Q12H PRN PRN Reason: Mild Constipation Last Admin: 04/27/18 09:01 Dose: 30 ml Amlodipine Besylate (Norvasc) 10 mg PO DAILY [facility] Last Admin: 05/01/18 09:11 Dose: 10 mg Aspirin (Ecotrin) 81 mg PO DAILY [facility] Last Admin: 05/01/18 09:11 Dose: 81 mg Atorvastatin Calcium (Lipitor) 40 mg PO DAILY [facility] Last Admin: 05/01/18 09:13 Dose: 40 mg Bisacodyl (Dulcolax Supp) 10 mg RECTAL DAILY PRN PRN Reason: SEVERE CONSITIPATION Last Admin: 04/26/18 17:30 Dose: 10 mg Clonidine HCl (Catapress-Tts 0.3 Mg Patch.7d) 1 patch T-DERMAL Q7D [facility] Last Admin: 05/01/18 12:31 Dose: 1 patch Dextrose (D50w Vial) 50 ml IV.PUSH UNSCH PRN PRN Reason: PER HYPOGLYCEMIA PROTOCOL Ferrous Sulfate (Ferosul) 325 mg PO BID@1200,1700 [facility] Last Admin: 05/01/18 12:09 Dose: 325 mg Gabapentin (Neurontin) 300 mg PO TID [facility] Last Admin: 05/01/18 12:08 Dose: 300 mg Glucagon (Glucagon Inj) 1 mg OTHER PRN PRN PRN Reason: for Hypoglycemia Protocol Glycerin (Glycerin Adult Supp) 2 gm RECTAL DAILY PRN PRN Reason: CONSTIPATION Heparin Sodium (Porcine) (Heparin Inj) 5,000 units SQ Q12HR [facility] Last Admin: 05/01/18 09:12 Dose: 5,000 units Hydralazine HCl (Apresoline) 25 mg PO TID [facility] Last Admin: 05/01/18 12:09 Dose: 25 mg Hydromorphone HCl (Dilaudid) 2 mg PO Q6H PRN PRN Reason: PAIN SCALE 7 TO 10 SEVERE Last Admin: 05/01/18 12:35 Dose: 2 mg Ampicillin Sodium/Sulbactam (Sodium 3 gm/ Sodium Chloride) 100 mls @ 200 mls/ hr IV.SIG Q6H [facility] Last Admin: 05/01/18 12:08 Dose: 200 mls/hr Sodium Chloride (Ns Inj) 1,000 mls @ 84 mls/hr IV.CONT .[id number] [facility] Last Admin: 05/01/18 12:31 Dose: 84 mls/hr Fluconazole (Diflucan 200 Mg Premix Bag) 100 mls @ 100 mls/hr IV.SIG Q24H [facility] Last Infusion: 04/30/18 22:25 Dose: Infused Albumin Human (Flexbumin 25% Inj) 100 mls @ 60 mls/hr IV.SIG Q12H [facility] Last Infusion: 09/08/18 12:26 Dose: Infused Insulin Aspart (Novolog Insulin Correctional Sugar Inj) 0 unit SQ 07,13,19,01 [facility]; Protocol Last Admin: 05/01/18 12:28 Dose: Not Given Insulin Aspart (Novolog Insulin Correctional Sugar Inj) 5 unit SQ TIDAC [facility]; Protocol Last Admin: 05/01/18 12:31 Dose: 5 unit Insulin Detemir (Levemir Inj) 25 unit SQ BID [facility]; Protocol Last Admin: 05/01/18 09:12 Dose: 25 unit Lactulose (Lactulose Liq) 30 ml PO DAILY PRN PRN Reason: CONSTIPATION Last Admin: 04/26/18 02:44 Dose: 30 ml Lisinopril (Prinivil) 40 mg PO BID [facility] Last Admin: 04/29/18 10:05 Dose: 40 mg Morphine Sulfate (Morphine Inj) 4 mg IV.PUSH Q3H PRN PRN Reason: BREAKTHROUGH PAIN Last Admin: 05/01/18 14:55 Dose: 4 mg Naloxone HCl (Narcan Inj) 0.4 mg IV.PUSH UNSCH PRN PRN Reason: SEE LABEL COMMENTS Ondansetron HCl (Zofran Inj) 4 mg IV.PUSH Q6H PRN PRN Reason: Nausea, vomiting Patch Removal (Remove Old Patch) 1 each T-DERMAL Q7D [facility] Polyethylene Glycol (Miralax) 17 gm PO DAILY [facility] Last Admin: 05/01/18 09:15 Dose: 17 gm Senna/Docusate Sodium (Trixie-Colace) 1 tab PO BID [facility] Last Admin: 05/01/18 09:11 Dose: 1 tab Sennosides (Senokot) 17.2 mg PO Q12H PRN PRN Reason: Moderate Constipation Last Admin: 04/26/18 10:17 Dose: 17.2 mg Simethicone (Phazyme Chew) 125 mg PO TID PRN PRN Reason: GAS RETENTION Last Admin: 04/24/18 11:03 Dose: 125 mg Sodium Chloride (Ns Flush) 2 ml IV.FLUSH PRN PRN PRN Reason: FLUSH AFTER USING IV ACCESS Last Admin: 04/28/18 21:34 Dose: 2 ml Sodium Chloride (Ns Flush) 2 ml IV.FLUSH BID [facility] Last Admin: 05/01/18 12:25 Dose: Not Given Allergies Allergy/AdvReac Type Severity Reaction Status Date / Time No Known Allergies Allergy Verified 04/13/18 12:35 Home Medications Medication Instructions Recorded Confirmed Type amlodipine 5 mg PO DAILY 02/21/18 04/13/18 History amoxicillin 500 mg PO Q8HR 02/21/18 04/13/18 History aspirin [Aspirin Low Dose] 81 mg PO DAILY 02/21/18 04/13/18 History atorvastatin 40 mg PO DAILY 02/21/18 04/13/18 History clopidogrel [Plavix] 75 mg PO DAILY 02/21/18 04/13/18 History gabapentin [Neurontin] 300 mg PO TID 02/21/18 04/13/18 History insulin regular human 40 unit SUB-Q BID 02/21/18 04/13/18 History lisinopril 10 mg PO DAILY 02/21/18 04/13/18 History oxycodone 5 mg PO Q4-6H 02/21/18 04/13/18 History levofloxacin [Levaquin] 750 mg PO DAILY 04/13/18 04/13/18 History Results - Labs CBC & Chem 7: 05/01/18 04:03 05/01/18 04:03 Laboratory Results - last 24 hr 04/30/18 04/30/18 04/30/18 17:39 21:22 23:20 WBC RBC Hgb Hct MCV MCH MCHC RDW Plt Count MPV Neut % (Auto) Lymph % (Auto) [place] % (Auto) Eos % (Auto) Baso % (Auto) Neut # (Auto) Lymph # (Auto) [place] # (Auto) Eos # (Auto) Baso # (Auto) WBC Differential Differential Comment Sodium Potassium Chloride Carbon Dioxide Anion Gap BUN Creatinine Estimated GFR POC Glucose 193 H 198 H Random Glucose Calcium Urine Eosinophils None seen Ur Random Creatinine U Random Total Protein Protein/Creatinin Ratio Complement C3 Complement C4 04/30/18 05/01/18 05/01/18 23:20 00:29 04:03 WBC RBC Hgb Hct MCV MCH MCHC RDW Plt Count MPV Neut % (Auto) Lymph % (Auto) [place] % (Auto) Eos % (Auto) Baso % (Auto) Neut # (Auto) Lymph # (Auto) [place] # (Auto) Eos # (Auto) Baso # (Auto) WBC Differential Differential Comment Sodium Potassium Chloride Carbon Dioxide Anion Gap BUN Creatinine Estimated GFR POC Glucose 229 H Random Glucose Calcium Urine Eosinophils Ur Random Creatinine 37 U Random Total Protein 64.9 H Protein/Creatinin Ratio 1.75 H Complement C3 161 Complement C4 44 H 05/01/18 05/01/18 05/01/18 04:03 04:03 06:06 WBC 10.6 RBC 3.03 L Hgb 7.9 L Hct 24.2 L MCV 79.7 L MCH 26.0 L MCHC 32.6 RDW 18.0 H Plt Count 400 MPV 7.4 Neut % (Auto) 65.8 Lymph % (Auto) 17.9 [place] % (Auto) 11.0 H Eos % (Auto) 4.7 H Baso % (Auto) 0.6 Neut # (Auto) 7.0 Lymph # (Auto) 1.9 [place] # (Auto) 1.2 H Eos # (Auto) 0.5 H Baso # (Auto) 0.1 WBC Differential . Differential Comment Auto diff final Sodium 143 Potassium 3.9 Chloride 107 Carbon Dioxide 26.6 Anion Gap 9 BUN 27 H Creatinine 1.46 H Estimated GFR 64 L POC Glucose 165 H Random Glucose 142 H Calcium 8.7 Urine Eosinophils Ur Random Creatinine U Random Total Protein Protein/Creatinin Ratio Complement C3 Complement C4 05/01/18 12:07 WBC RBC Hgb Hct MCV MCH MCHC RDW Plt Count MPV Neut % (Auto) Lymph % (Auto) [place] % (Auto) Eos % (Auto) Baso % (Auto) Neut # (Auto) Lymph # (Auto) [place] # (Auto) Eos # (Auto) Baso # (Auto) WBC Differential Differential Comment Sodium Potassium Chloride Carbon Dioxide Anion Gap BUN Creatinine Estimated GFR POC Glucose 139 H Random Glucose Calcium Urine Eosinophils Ur Random Creatinine U Random Total Protein Protein/Creatinin Ratio Complement C3 Complement C4 Microbiology 04/28/18 14:20 Wound - Toe Gram Stain - Final 04/28/18 14:20 Wound - Toe Wound Culture - Final Enterococcus faecalis Tia albicans 05/01/18 06:21 Stool Stool Occult Blood (ESTRADA) - Final Hemoccult negative 04/28/18 14:20 Wound - Toe Gram Stain - Final 04/28/18 14:20 Wound - Toe Wound Culture - Final No growth in 72 hours (aerobically and anaerobically ) 04/28/18 14:20 Wound - Toe Acid Fast Bacilli Smear - Final No acid fast bacilli seen 04/28/18 14:20 Wound - Toe Acid Fast Bacilli Smear - Final No acid fast bacilli seen - Procedures DATE OF OPERATION: 04/15/2018 PREOPERATIVE DIAGNOSES: 1. Right extremity tissue loss. 2. Peripheral vascular disease. POSTOPERATIVE DIAGNOSES: 1. Right extremity tissue loss. 2. Peripheral vascular disease. PROCEDURE PERFORMED: Aortogram with right extremity angiogram. ATTENDING SURGEON: Moe Cullen MD Date of procedure: 04/22/18 Procedure: 1. R SFA-PT bypass (cryo) 2. R PT vein patch 3. Redo bypass Implants: cryo vein Anesthesia: GETA Surgeon: Moe Cullen MD Eyeglass Cutter: Poornima Benton Estimated blood loss (mL): 200 IV fluids (mL): 2,000 Urine output (mL): 325 Pathology: none sent Operation and Findings: very diseased perimalleolar PT patch and bypass from SFA to PT Palpable graft pulse DATE OF OPERATION: 04/25/2018 PREOPERATIVE DIAGNOSIS: Right foot gangrene. POSTOPERATIVE DIAGNOSIS: Right foot gangrene. PROCEDURE: 1. Right foot transmetatarsal amputation. 2. Right foot fifth metatarsal bone biopsy. Assessment and Plan - Assessment (1) Gangrene of right foot Code(s): I96 - Gangrene, not elsewhere classified Status: Acute (2) Diabetic foot infection Code(s): E11.628 - Type 2 diabetes mellitus with other skin complications; L08.9 - Local infection of the skin and subcutaneous tissue, unspecified Status: Acute - Plan Changed bandage today Keep clean, dry, intact Follow up with Dr Mackenzie in 1 week after discharge Heel contact weightbearing only right foot in surgical shoe Stressed importance of NO weight to right forefoot and only to use heel to balance. Clear for discharge from podiatry anytime
--- NOTE | 2018-05-01 17:51 | P.PNNP ---
Subjective Interval history: Feels okay Physical Exam Vital signs: Vital Signs 04/30/18 20:34 05/01/18 00:10 05/01/18 08:00 Temperature 98.3 F 97.8 F 97.9 F Pulse Rate 95 H 89 85 Respiratory Rate 18 20 17 Blood Pressure 165/82 H 168/83 H 163/79 H Pulse Oximetry 96 98 98 05/01/18 12:00 05/01/18 16:00 Temperature 98.1 F 99.4 F Pulse Rate 86 91 H Respiratory Rate 17 17 Blood Pressure 157/74 H 160/80 H Pulse Oximetry 98 96 Intake & Output 04/30/18 05/01/18 05/01/18 18:59 06:59 18:59 Intake Total 100 / 100 2280 / 2280 2160 / 2160 Output Total 1600 / 1600 1000 / 1000 Balance 100 / 100 680 / 680 1160 / 1160 Weight 120 kg Intake: IV 100 / 100 1500 / 1500 1200 / 1200 NS Inj 1,000 ML @ 84 mls/hr IV. 1000 / 1000 1000 / 1000 CONT .[id number] [facility] Rx#:[id number] Flexbumin 25% Inj 100 ML @ 60 100 / 100 100 / 100 mls/hr IV.SIG Q12H [facility] Rx#: [id number] Unasyn Inj 3 GM In NS Inj 100 100 / 100 300 / 300 100 / 100 ML @ 200 mls/hr IV.SIG Q6H [facility] Rx#:[id number] Diflucan 200 mg Premix Bag 100 100 / 100 ML @ 100 mls/hr IV.SIG Q24H [facility] Rx#:[id number] Oral 780 / 780 960 / 960 Output: Urine 1600 / 1600 1000 / 1000 - Constitutional no acute distress - Routine HEENT Exam Eye: Present: EOMI - Routine Neck Exam Present: supple - Routine Respiratory Exam Present: CTA bilaterally - Routine Cardiovascular Exam Present: RRR - Routine Abdominal Exam Present: soft, normoactive bowel sounds - Routine Extremities Exam Present: edema - Urinary Catheter Management Indwelling Urethral Catheter Cath placed during this visit: yes, but has since been removed by the nurse Reason for continuing: Decision to DC catheter Insertion date: 04/22/18 Insertion time: 11:00 Removal date: 04/23/18 Removal time: 09:15 Assessment and Plan - Assessment (1) Acute renal failure Code(s): N17.9 - Acute kidney failure, unspecified Status: Acute (2) Diabetes Code(s): E11.9 - Type 2 diabetes mellitus without complications Status: Acute (3) Amputated toe of right foot Code(s): Z89.421 - Acquired absence of other right toe(s) Status: Acute - Plan Acute renal failure improved creatinine declined to 1.4 with albumin Continue to monitor Give Lasix 20 mg IV Stop IVF Avoid nephrotoxins Likely related to acute infection C3 and C4 not depleted Continue to monitor BMP
[2018-05-02] MEDS: Ampicillin/Sulbactam Inj 3 GM in Sodium Chloride 0.9% Inj 100 ML IV.SIG SCH ×4 (00:44→17:18)
[2018-05-02] MEDS: Insulin NovoLOG Aspart Correctional Sugar Inj SQ SCH ×6 (00:54→17:21)
[2018-05-02] MEDS: Morphine Inj 4 MG/ML Vial IV.PUSH PRN ×2 (03:32→09:29)
[2018-05-02 07:33] LABS: Calcium 8.9 mg/dL (8.5-10.1); Carbon Dioxide 29.2 meq/L (21.0-32.0); Potassium 3.9 meq/L (3.5-5.1)
[2018-05-02] MEDS: Albumin Human 25% Inj 100 ML IV.SIG SCH ×2 (09:20→20:57)
[2018-05-02] MEDS: Heparin - SQ 10,000 UNITS/ML Vial SQ SCH ×2 (09:21→20:57)
[2018-05-02] MEDS: hydrALAZINE 25 MG Tablet PO SCH ×3 (09:21→17:18)
[2018-05-02] MEDS: Gabapentin 300 MG Capsule PO SCH ×3 (09:21→17:18)
[2018-05-02] MEDS: Senna/Docusate Sodium 8.6/50 MG Tablet PO SCH ×2 (09:21→20:59)
[2018-05-02] MEDS: amLODIPine 10 MG Tablet PO SCH (09:21)
[2018-05-02] MEDS: Polyethylene Glycol 3350 17 GM Packet PO SCH (09:21)
[2018-05-02] MEDS: Insulin Detemir Inj 1,000 UNIT/10 ML Vial SQ SCH ×2 (09:22→20:58)
--- NOTE | 2018-05-02 11:57 | P.PNIM ---
Subjective Interval history: Seen in follow-up for diabetic foot ulcer with osteomyelitis. Doing well today. Continues to have pain in his right foot, requiring Dilaudid 2 mg PO and IV Morphine. Tolerating oral intake. Physical Exam Vital signs: Vital Signs 05/01/18 12:00 05/01/18 16:00 05/01/18 20:00 Temperature 98.1 F 99.4 F 98.6 F Pulse Rate 86 91 H 104 H Respiratory Rate 17 17 20 Blood Pressure 157/74 H 160/80 H 171/82 H Pulse Oximetry 98 96 92 L 05/02/18 00:00 05/02/18 06:38 05/02/18 08:00 Temperature 99.8 F H 99.4 F 99.2 F Pulse Rate 105 H 95 H 96 H Respiratory Rate 20 10 L 18 Blood Pressure 184/86 H 147/71 H 169/79 H Pulse Oximetry 95 92 L 95 Intake & Output 05/01/18 05/02/18 05/02/18 18:59 06:59 18:59 Intake Total 2260 / 2260 2020 / 2020 100 / 100 Output Total 1000 / 1000 4250 / 4250 Balance 1260 / 1260 -2230 / -2230 100 / 100 Weight 126.1 kg Intake: IV 1300 / 1300 1300 / 1300 100 / 100 NS Inj 1,000 ML @ 84 mls/hr IV. 1000 / 1000 1000 / 1000 CONT .[id number] MER Rx#:[id number] Flexbumin 25% Inj 100 ML @ 60 100 / 100 100 / 100 mls/hr IV.SIG Q12H MER Rx#: [id number] Unasyn Inj 3 GM In NS Inj 100 200 / 200 100 / 100 100 / 100 ML @ 200 mls/hr IV.SIG Q6H MER Rx#:[id number] Diflucan 200 mg Premix Bag 100 100 / 100 ML @ 100 mls/hr IV.SIG Q24H MER Rx#:[id number] Oral 960 / 960 720 / 720 Output: Urine 1000 / 1000 4250 / 4250 Other: # Voids 480 Narrative: GENERAL: Well-developed well-nourished. Obese. In no acute distress. SKIN: Warm and dry. No lesions noted. CARDIOVASCULAR: Regular rate and rhythm. No murmur appreciated. RESPIRATORY: No accessory muscle use. Clear to auscultation. Breath sounds equal bilaterally. GASTROINTESTINAL: Abdomen soft, non-tender, nondistended. Bowel sounds x4. MUSCULOSKELETAL: Status post right foot amputation with clean dressing in place. No clubbing or cyanosis. No edema. NEUROLOGICAL: Awake and alert. Moves upper and lower extremities spontaneously. Normal speech. PSYCHIATRIC: Appropriate mood and affect; insight and judgment normal. - Urinary Catheter Management Indwelling Urethral Catheter Cath placed during this visit: yes, but has since been removed by the nurse Reason for continuing: Decision to DC catheter Insertion date: 04/22/18 Insertion time: 11:00 Removal date: 04/23/18 Removal time: 09:15 Results - Labs CBC & Chem 7: 05/01/18 04:03 05/02/18 04:05 Laboratory Results - last 24 hr 05/01/18 05/01/18 05/02/18 12:07 16:58 00:49 Sodium Potassium Chloride Carbon Dioxide Anion Gap BUN Creatinine Estimated GFR POC Glucose 139 H 132 H 155 H Random Glucose Calcium 05/02/18 05/02/18 04:05 06:09 Sodium 143 Potassium 3.9 Chloride 105 Carbon Dioxide 29.2 Anion Gap 9 BUN 23 H Creatinine 1.38 H Estimated GFR 68 L POC Glucose 138 H Random Glucose 97 Calcium 8.9 Microbiology 04/28/18 14:20 Wound - Toe Gram Stain - Final 04/28/18 14:20 Wound - Toe Wound Culture - Final Enterococcus faecalis Tia albicans 05/01/18 06:21 Stool Stool Occult Blood (ESTRADA) - Final Hemoccult negative 04/28/18 14:20 Wound - Toe Gram Stain - Final 04/28/18 14:20 Wound - Toe Wound Culture - Final No growth in 72 hours (aerobically and anaerobically ) - Procedures DATE OF OPERATION: 04/15/2018 PREOPERATIVE DIAGNOSES: 1. Right extremity tissue loss. 2. Peripheral vascular disease. POSTOPERATIVE DIAGNOSES: 1. Right extremity tissue loss. 2. Peripheral vascular disease. PROCEDURE PERFORMED: Aortogram with right extremity angiogram. ATTENDING SURGEON: Moe Cullen MD Date of procedure: 04/22/18 Procedure: 1. R SFA-PT bypass (cryo) 2. R PT vein patch 3. Redo bypass Implants: cryo vein Anesthesia: GETA Surgeon: Moe Cullen MD Assistant Dean: Poornima Benton Estimated blood loss (mL): 200 IV fluids (mL): 2,000 Urine output (mL): 325 Pathology: none sent Operation and Findings: very diseased perimalleolar PT patch and bypass from SFA to PT Palpable graft pulse DATE OF OPERATION: 04/25/2018 PREOPERATIVE DIAGNOSIS: Right foot gangrene. POSTOPERATIVE DIAGNOSIS: Right foot gangrene. PROCEDURE: 1. Right foot transmetatarsal amputation. 2. Right foot fifth metatarsal bone biopsy. Assessment and Plan - Plan 43 year old AA male with past medical history of diabetes, diabetic neuropathy, HTN, HLD, status post right lower extremity bypass graft Dr. Cullen, right fourth toe amputation by Dr. Gates who came into the hospital for evaluation of worsening right foot diabetic infection. SIRS, secondary to Right foot infection Diabetic foot infection Seen by Vascular surgery non palpable distal pulses as Per Vascular specialist Status post right lower extremity angiogram Severe right lower extremity peripheral arterial disease with large component of small vessel disease, Moderate range left lower extremity DARRIUS's with reduced TBI's s/p Right Superficial Femoral Artery to perimalleolar PT with vein patch, as per Vascular specialist. -ID on board, will need PICC line for long-term antibiotic -WBC count down to normal limits 05/01 5th toe osteomyelitis -Foot xray showed Stable examination with postsurgical changes not significantly changed -Previous cultures of the foot 04/08/18 -Enterococcus faecalis, pseudomonas aeruginosa -he was placed on ampicillin, Levaquin based on sensitivities -ID consult, greatly appreciate assistance. -s/p redo R fem-PT with patch on 04/22/[address] [facility], now with strong distal pulses and Doppler - s/p right transmetatarsal amputation by Dr. Mackenzie 04/28. Wound care consulted for recommendations, appreciate assistance. - Pain control with P.O. Dilaudid and IV Morphine for breakthrough pain. - per Podiatry 05/01: Keep clean, dry, intact Follow up with Dr Mackenzie in 1 week after discharge Heel contact weightbearing only right foot in surgical shoe Stressed importance of NO weight to right forefoot and only to use heel to balance. Clear for discharge from podiatry anytime Constipation: KUB completed on 04/26 with moderate amount of stool in the colon. - Improved - continue stool softeners and add MiraLax daily, encourage mobility. - 05/02 patient endorses positive flatus but no BM x 3 days, lactulose x1 ordered DM 2, insulin-dependent -Keep blood sugar below 180 gr/dl Levemir 25 BID, medium sliding scale, scheduled 5 units pre meal. -Blood sugars stable. HTN, Uncontrolled -Continue amlodipine 10 -Change clonidine 0.3 mg to patch, at least while admitted -Lisinopril and HCTZ on hold with ALVERTO -Hydralazine added yesterday, increased dose today HLD continue Home medicines. Acute kidney injury -Baseline creatinine 0.85- Cr is worsened, improved w/ IV hydration, then developed fluid overload, and IVF held. Today creatinine 1.38 -Consult nephrology for for further recommendations, appreciate assistance. -DC diuretic -monitor - recheck BMP in AM Anemia, microcytic Multifactorial (post-op and SHAHBAZ) - 2 units of PRBC's to date given - Hemoglobin stable at 8 - Iron studies consistent w/ SHAHBAZ, p.o replacement - Hemoccult neg - recheck CBC in AM Morbid obesity -Lifestyle modifications including diet and exercise DVT prop SCD Heparin Discharge Planning: Awaiting clearance from specialists including infectious disease Case discussed with supervising physician Dr. Murphy
[2018-05-02] MEDS: Ferrous Sulfate 325 MG Tablet PO SCH ×2 (12:22→17:18)
[2018-05-02 12:44] LABS: ABG Base Excess 2.5 mmol/L (-2-2); ABG PCO2 41 mmHg (38-42); ABG PO2 69 mmHg (61-120)
--- NOTE | 2018-05-02 13:06 | XR ---
EXAM DATE: 05/02/2018 1:01 PM EDT AGE/SEX: 43 years / Male INDICATIONS: CHF. CLINICAL DATA: This is the patient's initial encounter. Patient reports that signs and symptoms have been present for 1 day and indicates a pain score of 0/10. MEDICAL/SURGICAL HISTORY: . Hypertension. Diabetes. Hyperlipidemia. Hypertension. Diabetes. Hyp erlipidemia. . CABG. Toe amputation. Left ankle [place] [facility] [place]. . FINDINGS: AP view of the chest demonstrates hazy airspace opacity overlying the right upper lobe and right lowe r lobe. The left hemithorax appears grossly clear. Heart size is normal. Pulmonary vasculature appear s normal in caliber. CONCLUSION: Airspace opacities involving the peripheral aspect of the right upper lobe and right lower lobe. Conc brayden for pneumonia. Pulmonary vasculature appears grossly normal in caliber. Electronically signed by: Jessica Simms MD 05/02/2018 1:05 PM EDT
--- NOTE | 2018-05-02 13:40 | P.PNIM ---
Subjective Interval history: Patient seen by supervising physician Dr. Murphy approximately 12:[address] Murphy to see patient due to shortness of breath Physical Exam Vital signs: Vital Signs 05/01/18 16:00 05/01/18 20:00 05/02/18 00:00 Temperature 99.4 F 98.6 F 99.8 F H Pulse Rate 91 H 104 H 105 H Respiratory Rate 17 20 20 Blood Pressure 160/80 H 171/82 H 184/86 H Pulse Oximetry 96 92 L 95 05/02/18 06:38 05/02/18 08:00 05/02/18 12:00 Temperature 99.4 F 99.2 F 98.2 F Pulse Rate 95 H 96 H 97 H Respiratory Rate 10 L 18 18 Blood Pressure 147/71 H 169/79 H 166/81 H Pulse Oximetry 92 L 95 91 L Intake & Output 05/01/18 05/02/18 05/02/18 18:59 06:59 18:59 Intake Total 2260 / 2260 2020 / 2020 100 / 100 Output Total 1000 / 1000 4250 / 4250 Balance 1260 / 1260 -2230 / -2230 100 / 100 Weight 126.1 kg Intake: IV 1300 / 1300 1300 / 1300 100 / 100 NS Inj 1,000 ML @ 84 mls/hr IV. 1000 / 1000 1000 / 1000 CONT .[id number] MER Rx#:[id number] Flexbumin 25% Inj 100 ML @ 60 100 / 100 100 / 100 mls/hr IV.SIG Q12H MER Rx#: [id number] Unasyn Inj 3 GM In NS Inj 100 200 / 200 100 / 100 100 / 100 ML @ 200 mls/hr IV.SIG Q6H MER Rx#:[id number] Diflucan 200 mg Premix Bag 100 100 / 100 ML @ 100 mls/hr IV.SIG Q24H MER Rx#:[id number] Oral 960 / 960 720 / 720 Output: Urine 1000 / 1000 4250 / 4250 Other: # Voids 480 Narrative: GENERAL: Well-developed well-nourished. Obese. In no acute distress. CARDIOVASCULAR: Regular rate and rhythm. No murmur appreciated. RESPIRATORY: Crackles bilateral bases - Urinary Catheter Management Indwelling Urethral Catheter Cath placed during this visit: yes, but has since been removed by the nurse Reason for continuing: Decision to DC catheter Insertion date: 04/22/18 Insertion time: 11:00 Removal date: 04/23/18 Removal time: 09:15 Results - Labs CBC & Chem 7: 05/01/18 04:03 05/02/18 04:05 Laboratory Results - last 24 hr 05/01/18 05/02/18 05/02/18 16:58 00:49 04:05 Puncture Site Patient Temperature O2 Saturation ABG pH ABG pCO2 ABG pO2 ABG HCO3 ABG O2 Content ABG Base Excess ABG Methemoglobin Efrem Test Hemoglobin Carboxyhemoglobin O2 Delivery Device Liter Flow Critical Value Sodium 143 Potassium 3.9 Chloride 105 Carbon Dioxide 29.2 Anion Gap 9 BUN 23 H Creatinine 1.38 H Estimated GFR 68 L POC Glucose 132 H 155 H Random Glucose 97 Calcium 8.9 05/02/18 05/02/18 05/02/18 06:09 12:34 12:43 Puncture Site Right radial Patient Temperature 98.6 O2 Saturation 91 ABG pH 7.43 H ABG pCO2 41 ABG pO2 69 ABG HCO3 27 H ABG O2 Content 18.1 ABG Base Excess 2.5 H ABG Methemoglobin 1.0 Efrem Test Y Hemoglobin 14.1 Carboxyhemoglobin 1.2 O2 Delivery Device Nasal cannula Liter Flow 3.00 Critical Value No Sodium Potassium Chloride Carbon Dioxide Anion Gap BUN Creatinine Estimated GFR POC Glucose 138 H 108 Random Glucose Calcium Microbiology 04/28/18 14:20 Wound - Toe Gram Stain - Final 04/28/18 14:20 Wound - Toe Wound Culture - Final Enterococcus faecalis Tia albicans 05/01/18 06:21 Stool Stool Occult Blood (ESTRADA) - Final Hemoccult negative - Imaging Impressions Chest X-Ray 05/02/18 00:00 CONCLUSION: Airspace opacities involving the peripheral aspect of the right upper lobe and right lower lobe. Concern for pneumonia. Pulmonary vasculature appears grossly normal in caliber. - Procedures DATE OF OPERATION: 04/15/2018 PREOPERATIVE DIAGNOSES: 1. Right extremity tissue loss. 2. Peripheral vascular disease. POSTOPERATIVE DIAGNOSES: 1. Right extremity tissue loss. 2. Peripheral vascular disease. PROCEDURE PERFORMED: Aortogram with right extremity angiogram. ATTENDING SURGEON: Moe Cullen MD Date of procedure: 04/22/18 Procedure: 1. R SFA-PT bypass (cryo) 2. R PT vein patch 3. Redo bypass Implants: cryo vein Anesthesia: GETA Surgeon: Moe Cullen MD [employer] Team Lead: Poornima Benton Estimated blood loss (mL): 200 IV fluids (mL): 2,000 Urine output (mL): 325 Pathology: none sent Operation and Findings: very diseased perimalleolar PT patch and bypass from SFA to PT Palpable graft pulse DATE OF OPERATION: 04/25/2018 PREOPERATIVE DIAGNOSIS: Right foot gangrene. POSTOPERATIVE DIAGNOSIS: Right foot gangrene. PROCEDURE: 1. Right foot transmetatarsal amputation. 2. Right foot fifth metatarsal bone biopsy. Assessment and Plan - Plan 43 year old AA male with past medical history of diabetes, diabetic neuropathy, HTN, HLD, status post right lower extremity bypass graft Dr. Cullen, right fourth toe amputation by Dr. Gates who came into the hospital for evaluation of worsening right foot diabetic infection. Acute SOB, ? hypoxia, ? flash pulmonary edema, ? CAD Patient seen by supervising physician Dr. Murphy approximately 12:[address] Murphy to see patient due to shortness of breath Stat ABG reveals pH 7.43, PCO2 41, PO2 69, HCO3 27, base excess 2.5. Stat chest x-ray 05/02: Conclusion airspace opacities involving the peripheral aspect of the right upper lobe and right lower lobe. Concern for pneumonia. Pulmonary vascular appears grossly normal in caliber. Patient's 24-hour T-max 99.5 Patient denies cough STAT BNP and STAT serial CK, troponin and EKGs Update 1430: Patient reports he has urinated, "a lot," filled urine x 2 since Lasix was given and is no longer SOB. Case discussed with supervising physician Dr. Murphy
[2018-05-02 15:37] LABS: Troponin I 0.03 ng/mL (0.02-0.05)
--- NOTE | 2018-05-02 17:05 | P.PNNP ---
Subjective Interval history: Patient feels better Physical Exam Vital signs: Vital Signs 05/01/18 20:00 05/02/18 00:00 05/02/18 06:38 Temperature 98.6 F 99.8 F H 99.4 F Pulse Rate 104 H 105 H 95 H Respiratory Rate 20 20 10 L Blood Pressure 171/82 H 184/86 H 147/71 H Pulse Oximetry 92 L 95 92 L 05/02/18 08:00 05/02/18 12:00 05/02/18 16:00 Temperature 99.2 F 98.2 F 98.4 F Pulse Rate 96 H 97 H 97 H Respiratory Rate 18 18 18 Blood Pressure 169/79 H 166/81 H 174/84 H Pulse Oximetry 95 91 L 100 Intake & Output 05/01/18 05/02/18 05/02/18 18:59 06:59 18:59 Intake Total 2260 / 2260 2020 / 2020 200 / 200 Output Total 1000 / 1000 4250 / 4250 Balance 1260 / 1260 -2230 / -2230 200 / 200 Weight 126.1 kg Intake: IV 1300 / 1300 1300 / 1300 200 / 200 NS Inj 1,000 ML @ 84 mls/hr IV. 1000 / 1000 1000 / 1000 CONT .[id number] MER Rx#:[id number] Flexbumin 25% Inj 100 ML @ 60 100 / 100 100 / 100 mls/hr IV.SIG Q12H MER Rx#: [id number] Unasyn Inj 3 GM In NS Inj 100 200 / 200 100 / 100 200 / 200 ML @ 200 mls/hr IV.SIG Q6H MER Rx#:[id number] Diflucan 200 mg Premix Bag 100 100 / 100 ML @ 100 mls/hr IV.SIG Q24H MER Rx#:[id number] Oral 960 / 960 720 / 720 Output: Urine 1000 / 1000 4250 / 4250 Other: # Voids 480 - Constitutional no acute distress - Routine HEENT Exam Head: Present: normocephalic Eye: Present: EOMI - Routine Neck Exam Present: supple - Routine Respiratory Exam Present: CTA bilaterally - Routine Cardiovascular Exam Present: RRR - Routine Abdominal Exam Present: soft - Routine Extremities Exam Present: edema - Urinary Catheter Management Indwelling Urethral Catheter Cath placed during this visit: yes, but has since been removed by the nurse Reason for continuing: Decision to DC catheter Insertion date: 04/22/18 Insertion time: 11:00 Removal date: 04/23/18 Removal time: 09:15 Assessment and Plan - Assessment (1) Acute renal failure Code(s): N17.9 - Acute kidney failure, unspecified Status: Acute (2) Diabetes Code(s): E11.9 - Type 2 diabetes mellitus without complications Status: Acute (3) Amputated toe of right foot Code(s): Z89.421 - Acquired absence of other right toe(s) Status: Acute - Plan Acute renal failure improved creatinine declined to 1.3 creatinine Urine output 5 L May stop albumin Continue to monitor BMP
[2018-05-02 21:23] LABS: Troponin I 0.03 ng/mL (0.02-0.05)
[2018-05-03] MEDS: Insulin NovoLOG Aspart Correctional Sugar Inj SQ SCH ×8 (00:10→18:10)
[2018-05-03] MEDS: Ampicillin/Sulbactam Inj 3 GM in Sodium Chloride 0.9% Inj 100 ML IV.SIG SCH ×5 (00:31→23:56)
[2018-05-03] MEDS: Morphine Inj 4 MG/ML Vial IV.PUSH PRN ×3 (06:06→20:32)
--- NOTE | 2018-05-03 06:51 | XR ---
EXAM DATE: 05/03/2018 6:48 AM EDT AGE/SEX: 43 years / Male INDICATIONS: Short of breath, chest pain CLINICAL DATA: This is the patient's subsequent encounter. Patient reports that signs and symptoms h ave been present for 2 days and indicates a pain score of 5/10. MEDICAL/SURGICAL HISTORY: Diabetes. Hypertension. . partial amputation right foot COMPARISON: [facility], CHEST 1V SINGLE AP, 05/02/2018. . FINDINGS: Patchy airspace disease again noted in the right lung. Minimal left basilar opacity. No significant e ffusion. No pneumothorax. CONCLUSION: Patchy airspace consolidation in the right lung similar to May 02. Electronically signed by: Garret Lorenzo MD 05/03/2018 6:49 AM EDT
[2018-05-03 06:54] LABS: Baso # (Auto) 0.1 th/mm3 (0.0-0.2); Baso % (Auto) 0.6 % (0.0-2.0); Eos # (Auto) 0.3 th/mm3 (0.0-0.4); Eos % (Auto) 2.6 % (0.0-4.0); Hematocrit 21.6 % (39.0-51.0); Hemoglobin 7.4 gm/dL (13.0-17.0); Lymph # (Auto) 1.5 th/mm3 (1.0-4.8); Mean Corpuscular HGB Conc 34.1 % (32.0-36.0); Mean Corpuscular Hemoglobin 26.6 pg (27.0-34.0); Mean Corpuscular Volume 77.9 fL (80.0-100.0); Mean Platelet Volume 7.1 fL (7.0-11.0); Mono # (Auto) 1.3 th/mm3 (0.0-0.9); Mono % (Auto) 10.2 % (0.0-8.0); Neut # (Auto) 9.2 th/mm3 (1.8-7.7); Neut % (Auto) 74.6 % (16.0-70.0); Platelet Count 385 th/mm3 (150-450); Red Blood Count 2.78 mil/mm3 (4.50-5.90); Red Cell Distribution Width 17.8 % (11.6-17.2); White Blood Count 12.3 th/mm3 (4.0-11.0)
[2018-05-03 07:46] LABS: Calcium 8.8 mg/dL (8.5-10.1); Potassium 3.9 meq/L (3.5-5.1)
[2018-05-03 07:53] LABS: Troponin I 0.03 ng/mL (0.02-0.05)
[2018-05-03] MEDS: Heparin - SQ 10,000 UNITS/ML Vial SQ SCH ×2 (09:20→20:18)
[2018-05-03] MEDS: amLODIPine 10 MG Tablet PO SCH (09:20)
[2018-05-03] MEDS: Gabapentin 300 MG Capsule PO SCH ×3 (09:20→18:03)
[2018-05-03] MEDS: hydrALAZINE 25 MG Tablet PO SCH ×3 (09:20→18:03)
[2018-05-03] MEDS: Insulin Detemir Inj 1,000 UNIT/10 ML Vial SQ SCH ×2 (09:21→20:18)
[2018-05-03] MEDS: Polyethylene Glycol 3350 17 GM Packet PO SCH (09:30)
[2018-05-03] MEDS: Senna/Docusate Sodium 8.6/50 MG Tablet PO SCH ×3 (09:30→20:20)
--- NOTE | 2018-05-03 09:47 | P.PN ---
Subjective Interval history: Follow-up visit for right diabetic foot infection, osteomyelitis, status post transmetatarsal amputation, acute kidney injury with fluid overload. Patient seen and examined sitting up in bed eating breakfast this morning, appears to be in no acute distress. He reports that his breathing is better today, denies any cough or shortness of breath. Continues to have some constipation although is passing gas. He denies any nausea, vomiting, chills. Patient also reports that he has been trying to use pain medication less often. Would like to go home today. T-max overnight 99.9. Physical Exam Vital signs: Vital Signs 05/02/18 12:00 05/02/18 16:00 05/02/18 20:00 Temperature 98.2 F 98.4 F 98.6 F Pulse Rate 97 H 97 H 98 H Respiratory Rate 18 18 20 Blood Pressure 166/81 H 174/84 H Pulse Oximetry 91 L 100 98 05/03/18 00:00 05/03/18 08:00 Temperature 99.9 F H 98.9 F Pulse Rate 98 H 99 H Respiratory Rate 20 18 Blood Pressure 157/72 H Pulse Oximetry 98 100 Intake & Output 05/02/18 05/03/18 05/03/18 18:59 06:59 18:59 Intake Total 1680 / 1680 1120 / 1120 Output Total 3000 / 3000 1700 / 1700 Balance -1320 / -1320 -580 / -580 Weight 113.4 kg Intake: IV 400 / 400 400 / 400 Flexbumin 25% Inj 100 ML @ 60 100 / 100 100 / 100 mls/hr IV.SIG Q12H MER Rx#: [id number] Unasyn Inj 3 GM In NS Inj 100 300 / 300 200 / 200 ML @ 200 mls/hr IV.SIG Q6H MER Rx#:[id number] Diflucan 200 mg Premix Bag 100 100 / 100 ML @ 100 mls/hr IV.SIG Q24H MER Rx#:[id number] Oral 1280 / 1280 720 / 720 Output: Urine 3000 / 3000 1700 / 1700 Narrative: GENERAL: Obese. Well-developed patient, in no apparent distress. SKIN: Warm and dry. HEENT: Normocephalic. Pupils equal round and reactive. Nose without bleeding. Airway patent. NECK: Trachea midline. Supple. CARDIOVASCULAR: Regular rate and rhythm without murmurs, gallops, or rubs. RESPIRATORY: Diminished bases, likely due to body habitus. No wheezes, rales, or rhonchi. GASTROINTESTINAL: Abdomen obese, non-tender, normoactive bowel sounds. MUSCULOSKELETAL: Extremities without clubbing, Right foot dressed dry and intact. Bilateral lower extremity trace edema, improved. NEUROLOGICAL: Awake and alert. - Urinary Catheter Management Indwelling Urethral Catheter Cath placed during this visit: yes, but has since been removed by the nurse Reason for continuing: Decision to DC catheter Insertion date: 04/22/18 Insertion time: 11:00 Removal date: 04/23/18 Removal time: 09:15 Results - Labs CBC & Chem 7: 05/03/18 05:07 05/03/18 05:07 Laboratory Results - last 24 hr 05/02/18 05/02/18 05/02/18 12:34 12:43 14:41 WBC RBC Hgb Hct MCV MCH MCHC RDW Plt Count MPV Neut % (Auto) Lymph % (Auto) [place] % (Auto) Eos % (Auto) Baso % (Auto) Neut # (Auto) Lymph # (Auto) [place] # (Auto) Eos # (Auto) Baso # (Auto) WBC Differential Differential Comment Puncture Site Right radial Patient Temperature 98.6 O2 Saturation 91 ABG pH 7.43 H ABG pCO2 41 ABG pO2 69 ABG HCO3 27 H ABG O2 Content 18.1 ABG Base Excess 2.5 H ABG Methemoglobin 1.0 Efrem Test Y Hemoglobin 14.1 Carboxyhemoglobin 1.2 O2 Delivery Device Nasal cannula Liter Flow 3.00 Critical Value No Sodium Potassium Chloride Carbon Dioxide Anion Gap BUN Creatinine Estimated GFR POC Glucose 108 Random Glucose Calcium Total Creatine Kinase 101 Troponin I 0.03 B-Natriuretic Peptide 05/02/18 05/02/18 05/02/18 14:41 16:40 19:56 WBC RBC Hgb Hct MCV MCH MCHC RDW Plt Count MPV Neut % (Auto) Lymph % (Auto) [place] % (Auto) Eos % (Auto) Baso % (Auto) Neut # (Auto) Lymph # (Auto) [place] # (Auto) Eos # (Auto) Baso # (Auto) WBC Differential Differential Comment Puncture Site Patient Temperature O2 Saturation ABG pH ABG pCO2 ABG pO2 ABG HCO3 ABG O2 Content ABG Base Excess ABG Methemoglobin Efrem Test Hemoglobin Carboxyhemoglobin O2 Delivery Device Liter Flow Critical Value Sodium Potassium Chloride Carbon Dioxide Anion Gap BUN Creatinine Estimated GFR POC Glucose 149 H Random Glucose Calcium Total Creatine Kinase 169 Troponin I 0.03 B-Natriuretic Peptide 233 H 05/03/18 05/03/18 05/03/18 00:25 05:07 05:07 WBC 12.3 H RBC 2.78 L Hgb 7.4 L Hct 21.6 L MCV 77.9 L MCH 26.6 L MCHC 34.1 RDW 17.8 H Plt Count 385 MPV 7.1 Neut % (Auto) 74.6 H Lymph % (Auto) 12.0 [place] % (Auto) 10.2 H Eos % (Auto) 2.6 Baso % (Auto) 0.6 Neut # (Auto) 9.2 H Lymph # (Auto) 1.5 [place] # (Auto) 1.3 H Eos # (Auto) 0.3 Baso # (Auto) 0.1 WBC Differential . Differential Comment Auto diff final Puncture Site Patient Temperature O2 Saturation ABG pH ABG pCO2 ABG pO2 ABG HCO3 ABG O2 Content ABG Base Excess ABG Methemoglobin Efrem Test Hemoglobin Carboxyhemoglobin O2 Delivery Device Liter Flow Critical Value Sodium 143 Potassium 3.9 Chloride 105 Carbon Dioxide 29.0 Anion Gap 9 BUN 20 H Creatinine 1.33 H Estimated GFR 71 L POC Glucose 252 H Random Glucose 142 H Calcium 8.8 Total Creatine Kinase 86 Troponin I 0.03 B-Natriuretic Peptide 05/03/18 06:00 WBC RBC Hgb Hct MCV MCH MCHC RDW Plt Count MPV Neut % (Auto) Lymph % (Auto) [place] % (Auto) Eos % (Auto) Baso % (Auto) Neut # (Auto) Lymph # (Auto) [place] # (Auto) Eos # (Auto) Baso # (Auto) WBC Differential Differential Comment Puncture Site Patient Temperature O2 Saturation ABG pH ABG pCO2 ABG pO2 ABG HCO3 ABG O2 Content ABG Base Excess ABG Methemoglobin Efrem Test Hemoglobin Carboxyhemoglobin O2 Delivery Device Liter Flow Critical Value Sodium Potassium Chloride Carbon Dioxide Anion Gap BUN Creatinine Estimated GFR POC Glucose 148 H Random Glucose Calcium Total Creatine Kinase Troponin I B-Natriuretic Peptide - Imaging Impressions Chest X-Ray 05/02/18 00:00 CONCLUSION: Airspace opacities involving the peripheral aspect of the right upper lobe and right lower lobe. Concern for pneumonia. Pulmonary vasculature appears grossly normal in caliber. Chest X-Ray 05/03/18 06:00 CONCLUSION: Patchy airspace consolidation in the right lung similar to May 02. - Procedures DATE OF OPERATION: 04/15/2018 PREOPERATIVE DIAGNOSES: 1. Right extremity tissue loss. 2. Peripheral vascular disease. POSTOPERATIVE DIAGNOSES: 1. Right extremity tissue loss. 2. Peripheral vascular disease. PROCEDURE PERFORMED: Aortogram with right extremity angiogram. ATTENDING SURGEON: Moe Cullen MD Date of procedure: 04/22/18 Procedure: 1. R SFA-PT bypass (cryo) 2. R PT vein patch 3. Redo bypass Implants: cryo vein Anesthesia: GETA Surgeon: Moe Cullen MD Lean Specialist: Poornima Benton Estimated blood loss (mL): 200 IV fluids (mL): 2,000 Urine output (mL): 325 Pathology: none sent Operation and Findings: very diseased perimalleolar PT patch and bypass from SFA to PT Palpable graft pulse DATE OF OPERATION: 04/25/2018 PREOPERATIVE DIAGNOSIS: Right foot gangrene. POSTOPERATIVE DIAGNOSIS: Right foot gangrene. PROCEDURE: 1. Right foot transmetatarsal amputation. 2. Right foot fifth metatarsal bone biopsy. Assessment and Plan - Plan 43 year old AA male with past medical history of diabetes, diabetic neuropathy, HTN, HLD, status post right lower extremity bypass graft Dr. Cullen, right fourth toe amputation by Dr. Gates who came into the hospital for evaluation of worsening right foot diabetic infection. SIRS, secondary to Right foot infection Diabetic foot infection Seen by Vascular surgery non palpable distal pulses as Per Vascular specialist Status post right lower extremity angiogram Severe right lower extremity peripheral arterial disease with large component of small vessel disease, Moderate range left lower extremity DARRIUS's with reduced TBI's s/p Right Superficial Femoral Artery to perimalleolar PT with vein patch, as per Vascular specialist. -ID on board, will need PICC line for long-term antibiotic. T-max overnight 99.9, increase in WBC count to 12.3. Discussed with Dr. Bolanos ID, recheck blood cultures prior to PICC line. 5th toe osteomyelitis -Foot xray showed Stable examination with postsurgical changes not significantly changed -Previous cultures of the foot 04/08/18 -Enterococcus faecalis, pseudomonas aeruginosa -he was placed on ampicillin, Levaquin based on sensitivities -ID consult, greatly appreciate assistance. -s/p redo R fem-PT with patch on 04/22/[address] Alyse bell surgeon, now with strong distal pulses and Doppler - s/p right transmetatarsal amputation by Dr. Mackenzie 04/28. Wound care consulted for recommendations, appreciate assistance. - Pain control with P.O. Dilaudid and IV Morphine for breakthrough pain. - per Podiatry 05/01: Keep clean, dry, intact Follow up with Dr Mackenzie in 1 week after discharge Heel contact weightbearing only right foot in surgical shoe Stressed importance of NO weight to right forefoot and only to use heel to balance. Clear for discharge from podiatry anytime Flash pulmonary edema 05/02 Stat ABG reveals pH 7.43, PCO2 41, PO2 69, HCO3 27, base excess 2.5. Stat chest x-ray 05/02: Conclusion airspace opacities involving the peripheral aspect of the right upper lobe and right lower lobe. Concern for pneumonia. Pulmonary vascular appears grossly normal in caliber. Repeat chest x-ray 05/03 with patchy airspace consolidation on right lung similar to 05/02. -T-max overnight 99.9, check pro-calcitonin -Patient denies any shortness of breath, cough, on room air with stable oxygen saturation. - BNP minimally elevated at 233 s/p diuretics with good response. -Serial cardiac enzymes negative, EKG's with no acute changes, no CP complaints Constipation: KUB completed on 04/26 with moderate amount of stool in the colon. - Improved - continue stool softeners and add MiraLax daily, encourage mobility. -Last BM 04/30, continue stool softeners, patient refused MiraLAX today. DM 2, insulin-dependent -Keep blood sugar below 180 gr/dl Levemir 25 BID, medium sliding scale, scheduled 5 units pre meal. -Blood sugars stable. HTN, Uncontrolled -Continue amlodipine 10, hydralazine 25 mg 3 times daily. -Change clonidine 0.3 mg to patch, at least while admitted -Lisinopril and HCTZ on hold with ALVERTO -Blood pressure stable. HLD continue Home medicines. Acute kidney injury -Baseline creatinine 0.85, s/p IV fluids however due to overload these were held, renal function this morning slightly improved with creatinine 1.33. -Consult nephrology following, appreciate assistance. Nephrology has okayed patient getting PICC line. -Continue to follow renal function Anemia, microcytic Multifactorial (post-op and SHAHBAZ) - 2 units of PRBC's to date given - Iron studies consistent w/ SHAHBAZ, p.o replacement - Hemoccult neg -H&H this morning 7.4/21.6, no reports of bleeding, recheck CBC in the a.m. Morbid obesity -Lifestyle modifications including diet and exercise DVT prop SCD Heparin Discussed Condition With: Patient, RN, Dr. Bolanos, [place] Discharge Planning: Blood cultures to be drawn prior to PICC line, ID to make final antibiotic recommendations. Should be discharging home once final antibiotic recommendations made.
--- NOTE | 2018-05-03 10:56 | P.PNVS ---
Subjective Post Op Day #: 11 Procedure: R SFA-PT with vein patch Subjective/Hospital Course: Pt alert in NAD Pt S/P R LE distal bypass and TMA Pain controlled Pt w/o complaints Objective Vital Signs / I&O: Vital Signs 05/02/18 12:00 05/02/18 16:00 05/02/18 20:00 Temperature 98.2 F 98.4 F 98.6 F Pulse Rate 97 H 97 H 98 H Respiratory Rate 18 18 20 Blood Pressure 166/81 H 174/84 H Pulse Oximetry 91 L 100 98 05/03/18 00:00 05/03/18 08:00 Temperature 99.9 F H 98.9 F Pulse Rate 98 H 99 H Respiratory Rate 20 18 Blood Pressure 157/72 H Pulse Oximetry 98 100 Intake & Output 05/02/18 05/03/18 05/03/18 18:59 06:59 18:59 Intake Total 1680 / 1680 1120 / 1120 Output Total 3000 / 3000 1700 / 1700 Balance -1320 / -1320 -580 / -580 Weight 113.4 kg Intake: IV 400 / 400 400 / 400 Flexbumin 25% Inj 100 ML @ 60 100 / 100 100 / 100 mls/hr IV.SIG Q12H MER Rx#: [id number] Unasyn Inj 3 GM In NS Inj 100 300 / 300 200 / 200 ML @ 200 mls/hr IV.SIG Q6H MER Rx#:[id number] Diflucan 200 mg Premix Bag 100 100 / 100 ML @ 100 mls/hr IV.SIG Q24H MER Rx#:[id number] Oral 1280 / 1280 720 / 720 Output: Urine 3000 / 3000 1700 / 1700 Exam: Palpable 2+ R LE distal pulse (near graft) LE warm Incisions to R LE healed Laboratory Results - last 24 hr 05/02/18 05/02/18 05/02/18 12:34 12:43 14:41 WBC RBC Hgb Hct MCV MCH MCHC RDW Plt Count MPV Neut % (Auto) Lymph % (Auto) [place] % (Auto) Eos % (Auto) Baso % (Auto) Neut # (Auto) Lymph # (Auto) [place] # (Auto) Eos # (Auto) Baso # (Auto) WBC Differential Differential Comment Puncture Site Right radial Patient Temperature 98.6 O2 Saturation 91 ABG pH 7.43 H ABG pCO2 41 ABG pO2 69 ABG HCO3 27 H ABG O2 Content 18.1 ABG Base Excess 2.5 H ABG Methemoglobin 1.0 Efrem Test Y Hemoglobin 14.1 Carboxyhemoglobin 1.2 O2 Delivery Device Nasal cannula Liter Flow 3.00 Critical Value No Sodium Potassium Chloride Carbon Dioxide Anion Gap BUN Creatinine Estimated GFR POC Glucose 108 Random Glucose Calcium Total Creatine Kinase 101 Troponin I 0.03 B-Natriuretic Peptide 05/02/18 05/02/18 05/02/18 14:41 16:40 19:56 WBC RBC Hgb Hct MCV MCH MCHC RDW Plt Count MPV Neut % (Auto) Lymph % (Auto) [place] % (Auto) Eos % (Auto) Baso % (Auto) Neut # (Auto) Lymph # (Auto) [place] # (Auto) Eos # (Auto) Baso # (Auto) WBC Differential Differential Comment Puncture Site Patient Temperature O2 Saturation ABG pH ABG pCO2 ABG pO2 ABG HCO3 ABG O2 Content ABG Base Excess ABG Methemoglobin Efrem Test Hemoglobin Carboxyhemoglobin O2 Delivery Device Liter Flow Critical Value Sodium Potassium Chloride Carbon Dioxide Anion Gap BUN Creatinine Estimated GFR POC Glucose 149 H Random Glucose Calcium Total Creatine Kinase 169 Troponin I 0.03 B-Natriuretic Peptide 233 H 05/03/18 05/03/18 05/03/18 00:25 05:07 05:07 WBC 12.3 H RBC 2.78 L Hgb 7.4 L Hct 21.6 L MCV 77.9 L MCH 26.6 L MCHC 34.1 RDW 17.8 H Plt Count 385 MPV 7.1 Neut % (Auto) 74.6 H Lymph % (Auto) 12.0 [place] % (Auto) 10.2 H Eos % (Auto) 2.6 Baso % (Auto) 0.6 Neut # (Auto) 9.2 H Lymph # (Auto) 1.5 [place] # (Auto) 1.3 H Eos # (Auto) 0.3 Baso # (Auto) 0.1 WBC Differential . Differential Comment Auto diff final Puncture Site Patient Temperature O2 Saturation ABG pH ABG pCO2 ABG pO2 ABG HCO3 ABG O2 Content ABG Base Excess ABG Methemoglobin Efrem Test Hemoglobin Carboxyhemoglobin O2 Delivery Device Liter Flow Critical Value Sodium 143 Potassium 3.9 Chloride 105 Carbon Dioxide 29.0 Anion Gap 9 BUN 20 H Creatinine 1.33 H Estimated GFR 71 L POC Glucose 252 H Random Glucose 142 H Calcium 8.8 Total Creatine Kinase 86 Troponin I 0.03 B-Natriuretic Peptide 05/03/18 06:00 WBC RBC Hgb Hct MCV MCH MCHC RDW Plt Count MPV Neut % (Auto) Lymph % (Auto) [place] % (Auto) Eos % (Auto) Baso % (Auto) Neut # (Auto) Lymph # (Auto) [place] # (Auto) Eos # (Auto) Baso # (Auto) WBC Differential Differential Comment Puncture Site Patient Temperature O2 Saturation ABG pH ABG pCO2 ABG pO2 ABG HCO3 ABG O2 Content ABG Base Excess ABG Methemoglobin Efrem Test Hemoglobin Carboxyhemoglobin O2 Delivery Device Liter Flow Critical Value Sodium Potassium Chloride Carbon Dioxide Anion Gap BUN Creatinine Estimated GFR POC Glucose 148 H Random Glucose Calcium Total Creatine Kinase Troponin I B-Natriuretic Peptide Assessment and Plan - Assessment (1) PAD (peripheral artery disease) Code(s): I73.9 - Peripheral vascular disease, unspecified Status: Acute - Plan POD#11 Pt s/p redo R fem-PT with patch graft continue to be patent by exam palpable distal pulses noted Plan Continue to Avoid TERENCE wrap across ankle as it could compress the graft Continue neurovascular pulse checks Pt clear for D/C Arranged out pt f/u in a few weeks Kasey Caldwell NP [facility] [phone] Discharge Planning: clear for D/C Will arrange post op f/u in a few weeks
[2018-05-03] MEDS: Ferrous Sulfate 325 MG Tablet PO SCH ×2 (13:46→18:03)
[2018-05-03] MEDS: Albumin Human 25% Inj 100 ML IV.SIG SCH ×2 (15:28→20:17)
--- NOTE | 2018-05-03 16:16 | ECG ---
Date Performed: 05/02/2018 Time Performed: 13:50:05 PTAGE: 43 years EKG: Sinus rhythm Since previous tracing, no significant change noted NORMAL ECG PREVIOUS TRACING : 04/27/2018 22.21 DOCTOR: Ketan Blackmon Interpretating Date/Time 05/03/2018 16:15:45
--- NOTE | 2018-05-03 16:18 | ECG ---
Date Performed: 05/02/2018 Time Performed: 19:51:24 PTAGE: 43 years EKG: Sinus rhythm SEPTAL MYOCARDIAL INFARCTION , PROBABLY OLD Poor R wave progression, which may be due to lead placem ent. Doubt any change from proir tracing. ABNORMAL ECG PREVIOUS TRACING : 05/02/2018 13.50 DOCTOR: Ketan Blackmon Interpretating Date/Time 05/03/2018 16:17:06
--- NOTE | 2018-05-03 18:01 | ECHRPT ---
Indication: Heart Failure CONCLUSIONS The left ventricular systolic function is normal with an estimated ejection fraction in the range of 55-60%. Trace mitral valve regurgitation. There is trace tricuspid valve regurgitation. BP: / HR: Rhythm: MEASUREMENTS (Male / Female) Normal Values Technical Quality:Good 2D ECHO LV Diastolic Diameter PLAX 5.0 cm 4.2 - 5.9 / 3.9 - 5.3 cm LV Systolic Diameter PLAX 3.0 cm IVS Diastolic Thickness 1.0 cm 0.6 - 1.0 / 0.6 - 0.9 cm LVPW Diastolic Thickness 1.0 cm 0.6 - 1.0 / 0.6 - 0.9 cm LV Relative Wall Thickness 0.4 RV Internal Dim ED PLAX 3.2 cm Aortic Root Diameter 2.5 cm LA Systolic Diameter LX 3.6 cm 3.0 - 4.0 / 2.7 - 3.8 cm M-MODE AV Cusp Separation MM 2.0 cm DOPPLER AV Peak Velocity 166.0 cm/s AV Peak Gradient 11.0 mmHg LVOT Peak Velocity 133.0 cm/s LVOT Peak Gradient 7.1 mmHg Mitral E Point Velocity 125.0 cm/s Mitral A Point Velocity 145.0 cm/s Mitral E to A Ratio 0.9 LV E' Lateral Velocity 10.9 cm/s Mitral E to LV E' Lateral Ratio 11.5 LV E' Septal Velocity 10.3 cm/s Mitral E to LV E' Septal Ratio 12.1 TR Peak Velocity 329.0 cm/s TR Peak Gradient 43.3 mmHg Right Atrial Pressure 10.0 mmHg Pulmonary Artery Systolic Pressu 53.3 mmHg Right Ventricular Systolic Press 53.3 mmHg PV Peak Velocity 86.4 cm/s PV Peak Gradient 3.0 mmHg FINDINGS LEFT VENTRICLE Normal left ventricular size. Wall thickness is normal. The left ventricular systolic function is normal with an estimated ejection fraction in the range of 55-60%. RIGHT VENTRICLE Normal right ventricular size and systolic function. LEFT ATRIUM The left atrial size is normal. RIGHT ATRIUM The right atrial size is normal. ATRIAL SEPTUM Normal atrial septal thickness without atrial level shunting by limited color doppler interrogation. AORTA The aortic root and proximal ascending aorta are normal in size on limited imaging. MITRAL VALVE Structurally normal mitral valve. No mitral valve stenosis. Trace mitral valve regurgitation. Mitral annular calcification is present. AORTIC VALVE Trileaflet aortic valve. No aortic valve stenosis or regurgitation. TRICUSPID VALVE Structurally normal tricuspid valve. No tricuspid valve stenosis. There is trace tricuspid valve regurgitation. PULMONARY VALVE No pulmonary valve regurgitation or stenosis. VESSELS The inferior vena cava is normal in size. PERICARDIUM No pericardial effusion. Des Stafford DO (Electronically Signed) Final Date:03 May 2018 18:01
--- NOTE | 2018-05-03 18:30 | P.PNNP ---
Subjective Interval history: Patient is doing better Physical Exam Vital signs: Vital Signs 05/02/18 20:00 05/03/18 00:00 05/03/18 08:00 Temperature 98.6 F 99.9 F H 98.9 F Pulse Rate 98 H 98 H 99 H Respiratory Rate 20 20 18 Blood Pressure 157/72 H Pulse Oximetry 98 98 100 05/03/18 12:00 05/03/18 16:00 Temperature 98.6 F 98.8 F Pulse Rate 101 H 103 H Respiratory Rate 18 19 Blood Pressure 133/76 182/86 H Pulse Oximetry 94 L 96 Intake & Output 05/02/18 05/03/18 05/03/18 18:59 06:59 18:59 Intake Total 1680 / 1680 1120 / 1120 1160 / 1160 Output Total 3000 / 3000 1700 / 1700 Balance -1320 / -1320 -580 / -580 1160 / 1160 Weight 113.4 kg Intake: IV 400 / 400 400 / 400 200 / 200 Flexbumin 25% Inj 100 ML @ 60 100 / 100 100 / 100 100 / 100 mls/hr IV.SIG Q12H MER Rx#: [id number] Unasyn Inj 3 GM In NS Inj 100 300 / 300 200 / 200 100 / 100 ML @ 200 mls/hr IV.SIG Q6H MER Rx#:[id number] Diflucan 200 mg Premix Bag 100 100 / 100 ML @ 100 mls/hr IV.SIG Q24H MER Rx#:[id number] Oral 1280 / 1280 720 / 720 960 / 960 Output: Urine 3000 / 3000 1700 / 1700 Other: # Voids 4 Date of Last Bowel Movement 04/30/18 Narrative: GENERAL: Obese. Well-developed patient, in no apparent distress. SKIN: Warm and dry. HEENT: Normocephalic. Pupils equal round and reactive. Nose without bleeding. Airway patent. NECK: Trachea midline. Supple. CARDIOVASCULAR: Regular rate and rhythm without murmurs, gallops, or rubs. RESPIRATORY: Diminished bases, likely due to body habitus. No wheezes, rales, or rhonchi. GASTROINTESTINAL: Abdomen obese, non-tender, normoactive bowel sounds. MUSCULOSKELETAL: Extremities without clubbing, Right foot dressed dry and intact. Bilateral lower extremity trace edema, improved. NEUROLOGICAL: Awake and alert. - Urinary Catheter Management Indwelling Urethral Catheter Cath placed during this visit: yes, but has since been removed by the nurse Reason for continuing: Decision to DC catheter Insertion date: 04/22/18 Insertion time: 11:00 Removal date: 04/23/18 Removal time: 09:15 Assessment and Plan - Assessment (1) Acute renal failure Code(s): N17.9 - Acute kidney failure, unspecified Status: Acute (2) Diabetes Code(s): E11.9 - Type 2 diabetes mellitus without complications Status: Acute (3) Amputated toe of right foot Code(s): Z89.421 - Acquired absence of other right toe(s) Status: Acute - Plan Acute renal failure improved creatinine declined to 1.3 creatinine Urine output 4.7 L Creatinine Is stable at 1.3 Avoid nephrotoxins okay with PICC line Okay to discharge from nephrology point of view
--- NOTE | 2018-05-03 18:53 | P.PNID ---
Subjective Remarks: stable GFR, improved UOP improved edema + low grade fever mild persistent leukocytosis s/p R TMA improved constipation, bloating Antibiotics: Amp/S Allergies/Adverse Reactions: Allergies No Known Allergies Allergy (Verified 04/13/18 12:35) Objective Vital Signs 05/02/18 20:00 05/03/18 00:00 05/03/18 08:00 Temperature 98.6 F 99.9 F H 98.9 F Pulse Rate 98 H 98 H 99 H Respiratory Rate 20 20 18 Blood Pressure 157/72 H Pulse Oximetry 98 98 100 05/03/18 12:00 05/03/18 16:00 Temperature 98.6 F 98.8 F Pulse Rate 101 H 103 H Respiratory Rate 18 19 Blood Pressure 133/76 182/86 H Pulse Oximetry 94 L 96 Intake & Output 05/02/18 05/03/18 05/03/18 18:59 06:59 18:59 Intake Total 1680 / 1680 1120 / 1120 1160 / 1160 Output Total 3000 / 3000 1700 / 1700 Balance -1320 / -1320 -580 / -580 1160 / 1160 Weight 113.4 kg Intake: IV 400 / 400 400 / 400 200 / 200 Flexbumin 25% Inj 100 ML @ 60 100 / 100 100 / 100 100 / 100 mls/hr IV.SIG Q12H MER Rx#: [id number] Unasyn Inj 3 GM In NS Inj 100 300 / 300 200 / 200 100 / 100 ML @ 200 mls/hr IV.SIG Q6H MER Rx#:[id number] Diflucan 200 mg Premix Bag 100 100 / 100 ML @ 100 mls/hr IV.SIG Q24H MER Rx#:[id number] Oral 1280 / 1280 720 / 720 960 / 960 Output: Urine 3000 / 3000 1700 / 1700 Other: # Voids 4 Date of Last Bowel Movement 04/30/18 04/28/18 14:20 Wound - Toe Gram Stain - Final 04/28/18 14:20 Wound - Toe Wound Culture - Final Enterococcus faecalis Tia albicans 05/01/18 06:21 Stool Stool Occult Blood (ESTRADA) - Final Hemoccult negative 04/28/18 14:20 Wound - Toe Gram Stain - Final 04/28/18 14:20 Wound - Toe Wound Culture - Final No growth in 72 hours (aerobically and anaerobically ) Lab - Hematology Results 05/03/18 05:07 WBC 12.3 H RBC 2.78 L Hgb 7.4 L Hct 21.6 L MCV 77.9 L MCH 26.6 L MCHC 34.1 RDW 17.8 H Plt Count 385 MPV 7.1 Neut % (Auto) 74.6 H Lymph % (Auto) 12.0 [place] % (Auto) 10.2 H Eos % (Auto) 2.6 Baso % (Auto) 0.6 Neut # (Auto) 9.2 H Lymph # (Auto) 1.5 [place] # (Auto) 1.3 H Eos # (Auto) 0.3 Baso # (Auto) 0.1 WBC Differential . Differential Comment Auto diff final Lab - Chemistry Results 05/02/18 05/02/18 05/02/18 00:49 04:05 06:09 Sodium 143 Potassium 3.9 Chloride 105 Carbon Dioxide 29.2 Anion Gap 9 BUN 23 H Creatinine 1.38 H Estimated GFR 68 L POC Glucose 155 H 138 H Random Glucose 97 Calcium 8.9 Total Creatine Kinase Troponin I B-Natriuretic Peptide 05/02/18 05/02/18 05/02/18 12:43 14:41 14:41 Sodium Potassium Chloride Carbon Dioxide Anion Gap BUN Creatinine Estimated GFR POC Glucose 108 Random Glucose Calcium Total Creatine Kinase 101 Troponin I 0.03 B-Natriuretic Peptide 233 H 05/02/18 05/02/18 05/03/18 16:40 19:56 00:25 Sodium Potassium Chloride Carbon Dioxide Anion Gap BUN Creatinine Estimated GFR POC Glucose 149 H 252 H Random Glucose Calcium Total Creatine Kinase 169 Troponin I 0.03 B-Natriuretic Peptide 05/03/18 05/03/18 05/03/18 05:07 06:00 12:25 Sodium 143 Potassium 3.9 Chloride 105 Carbon Dioxide 29.0 Anion Gap 9 BUN 20 H Creatinine 1.33 H Estimated GFR 71 L POC Glucose 148 H 179 H Random Glucose 142 H Calcium 8.8 Total Creatine Kinase 86 Troponin I 0.03 B-Natriuretic Peptide 05/03/18 17:11 Sodium Potassium Chloride Carbon Dioxide Anion Gap BUN Creatinine Estimated GFR POC Glucose 82 Random Glucose Calcium Total Creatine Kinase Troponin I B-Natriuretic Peptide Imaging: ITS Impressions Foot X-Ray 04/13/18 12:42 CONCLUSION: Stable examination with postsurgical changes not significantly changed. Extremity Arterial Study 04/14/18 00:00 CONCLUSION: 1. Severe right lower extremity peripheral arterial disease with large component of small vessel disease. 2. Moderate range left lower extremity DARRIUS's with reduced TBI's consistent with component of small vessel disease. 3. Consider CT angiography for further evaluation. Foot MRI 04/17/18 00:00 CONCLUSION: 1. There is bone marrow edema with abnormal enhancement suspicious for osteomyelitis in the fifth metacarpal head, third metacarpal head, and proximal phalanx of the third digit. 2. Nonspecific marrow edema is present in the proximal phalanx of the fifth digit. 3. Diffuse subcutaneous edema with a wound along the dorsal aspect of the foot superficial to the distal third metacarpal and expected location of the distal fourth metacarpal. Renal Ultrasound 04/20/18 00:00 CONCLUSION: 1. Limited evaluation secondary to body habitus. No evidence of renal artery stenosis Abdomen X-Ray 04/26/18 00:00 CONCLUSION: Moderate stool in the colon. Chest X-Ray 05/03/18 06:00 CONCLUSION: Patchy airspace consolidation in the right lung similar to May 02. Physical Exam: GENERAL: NAD morbidly obese SKIN: Warm and dry. no rash HEAD: Atraumatic. Normocephalic. EYES: Pupils equal and round. No scleral icterus. No injection or drainage. ENT: No nasal bleeding or discharge. Mucous membranes pink and moist. NECK: Trachea midline. No JVD. CARDIOVASCULAR: Regular rate and rhythm. RESPIRATORY: No accessory muscle use. Clear to auscultation. Breath sounds equal bilaterally. GASTROINTESTINAL: Abdomen soft, non-tender, nondistended. Hepatic and splenic margins not palpable. MUSCULOSKELETAL: Extremities without clubbing, cyanosis, + Much imprpved edema, 1+ sp R RMA< dressing inrtact NEUROLOGICAL: Awake and alert. Non focal. Normal speech. PSYCHIATRIC: Appropriate mood and affect; insight and judgment normal. 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 he grew enterococcus along with 3+ enteric GNBs ? R lung consiolidation cont Unasyn Bl clx If afebrile wioll get PICC tomorrow, however if fever again will wait till clx are 72 hrs with no growth repeat CXR sputum clx UA, C+S reflex dw Mame HERNANDEZ
[2018-05-04] MEDS: Insulin NovoLOG Aspart Correctional Sugar Inj SQ SCH ×7 (01:10→18:12)
[2018-05-04 04:57] LABS: Baso # (Auto) 0.1 th/mm3 (0.0-0.2); Baso % (Auto) 0.7 % (0.0-2.0); Eos # (Auto) 0.4 th/mm3 (0.0-0.4); Eos % (Auto) 3.5 % (0.0-4.0); Hematocrit 22.7 % (39.0-51.0); Hemoglobin 7.4 gm/dL (13.0-17.0); Lymph # (Auto) 1.6 th/mm3 (1.0-4.8); Lymph % (Auto) 13.4 % (9.0-44.0); Mean Corpuscular HGB Conc 32.6 % (32.0-36.0); Mean Corpuscular Hemoglobin 25.7 pg (27.0-34.0); Mean Corpuscular Volume 78.8 fL (80.0-100.0); Mean Platelet Volume 7.1 fL (7.0-11.0); Mono # (Auto) 1.3 th/mm3 (0.0-0.9); Mono % (Auto) 10.9 % (0.0-8.0); Neut # (Auto) 8.7 th/mm3 (1.8-7.7); Neut % (Auto) 71.5 % (16.0-70.0); Platelet Count 374 th/mm3 (150-450); Red Blood Count 2.88 mil/mm3 (4.50-5.90); Red Cell Distribution Width 17.8 % (11.6-17.2); White Blood Count 12.1 th/mm3 (4.0-11.0)
[2018-05-04 05:27] LABS: Calcium 8.4 mg/dL (8.5-10.1); Carbon Dioxide 27.1 meq/L (21.0-32.0); Potassium 3.6 meq/L (3.5-5.1)
[2018-05-04] MEDS: Ampicillin/Sulbactam Inj 3 GM in Sodium Chloride 0.9% Inj 100 ML IV.SIG SCH ×3 (05:52→13:48)
--- NOTE | 2018-05-04 06:40 | XR ---
EXAM DATE: 05/04/2018 6:33 AM EDT AGE/SEX: 43 years / Male INDICATIONS: Short of breath CLINICAL DATA: This is the patient's subsequent encounter. Patient reports that signs and symptoms h ave been present for 3 days and indicates a pain score of 0/10. MEDICAL/SURGICAL HISTORY: Diabetes. Hypertension. . partial amputation right foot COMPARISON: C, CHEST 1V SINGLE AP, 05/03/2018. . FINDINGS: There is patchy airspace disease, right greater than left. No effusion or pneumothorax. Heart size wi thin normal limits. CONCLUSION: Patchy bilateral airspace disease, right greater than left similar to May 03. Electronically signed by: Garret Lorenzo MD 05/04/2018 6:38 AM EDT
[2018-05-04 07:19] LABS: Bilirubin,Urine Negative (Negative); Clarity,Urine Clear (Clear); Color,Urine Yellow (Yellw/Straw); Glucose,Urine (UA) 50 mg/dL (Negative); Leukocyte Esterase,Urine Negative (Negative); Nitrite,Urine Negative (Negative); Specific Gravity,Urine 1.012 (1.002-1.035)
[2018-05-04] MEDS: amLODIPine 10 MG Tablet PO SCH (10:39)
[2018-05-04] MEDS: hydrALAZINE 25 MG Tablet PO SCH ×3 (10:39→18:11)
[2018-05-04] MEDS: Gabapentin 300 MG Capsule PO SCH ×3 (10:39→18:11)
[2018-05-04] MEDS: Heparin - SQ 10,000 UNITS/ML Vial SQ SCH ×2 (10:40→20:18)
[2018-05-04] MEDS: Polyethylene Glycol 3350 17 GM Packet PO SCH (10:41)
[2018-05-04] MEDS: Senna/Docusate Sodium 8.6/50 MG Tablet PO SCH ×2 (10:41→20:20)
[2018-05-04] MEDS: Insulin Detemir Inj 1,000 UNIT/10 ML Vial SQ SCH ×2 (10:41→20:19)
--- NOTE | 2018-05-04 13:37 | P.PNID ---
Subjective Remarks: slightlyu worse GFR, improved UOP improved edema cont to have low grade fever < 100 mild persistent leukocytosis s/p R TMA improved constipation, bloating blood clx neg 2/2@ 1 day Antibiotics: Amp/S fluconazol Allergies/Adverse Reactions: Allergies No Known Allergies Allergy (Verified 04/13/18 12:35) Objective Vital Signs 05/03/18 16:00 05/03/18 20:00 05/04/18 00:00 Temperature 98.8 F 99.3 F 98.2 F Pulse Rate 103 H 95 H 95 H Respiratory Rate 19 20 18 Blood Pressure 182/86 H 160/77 H 162/79 H Pulse Oximetry 96 96 97 05/04/18 08:00 05/04/18 12:00 Temperature 99.8 F H 99.0 F Pulse Rate 105 H 93 H Respiratory Rate 18 18 Blood Pressure 157/84 H 160/74 H Pulse Oximetry 92 L 96 Intake & Output 05/03/18 05/04/18 05/04/18 18:59 06:59 18:59 Intake Total 1160 / 1160 540 / 540 Output Total 850 / 850 900 / 900 Balance 310 / 310 -360 / -360 Weight 116.5 kg Intake: IV 200 / 200 300 / 300 Flexbumin 25% Inj 100 ML @ 60 100 / 100 100 / 100 mls/hr IV.SIG Q12H [facility] Rx#: [id number] Unasyn Inj 3 GM In NS Inj 100 100 / 100 200 / 200 ML @ 200 mls/hr IV.SIG Q6H MER Rx#:[id number] Oral 960 / 960 240 / 240 Output: Urine 850 / 850 900 / 900 Other: # Voids 4 Date of Last Bowel Movement 04/30/18 05/03/18 18:50 Blood - Peripheral Aerobic Blood Culture - Preliminary No growth in 1 day 05/03/18 18:50 Blood - Peripheral Anaerobic Blood Culture - Preliminary No growth in 1 day 05/03/18 18:40 Blood - Peripheral Aerobic Blood Culture - Preliminary No growth in 1 day 05/03/18 18:40 Blood - Peripheral Anaerobic Blood Culture - Preliminary No growth in 1 day 04/28/18 14:20 Wound - Toe Gram Stain - Final 04/28/18 14:20 Wound - Toe Wound Culture - Final Enterococcus faecalis Tia albicans 05/01/18 06:21 Stool Stool Occult Blood (ESTRADA) - Final Hemoccult negative Lab - Hematology Results 05/03/18 05/04/18 05:07 04:08 WBC 12.3 H 12.1 H RBC 2.78 L 2.88 L Hgb 7.4 L 7.4 L Hct 21.6 L 22.7 L MCV 77.9 L 78.8 L MCH 26.6 L 25.7 L MCHC 34.1 32.6 RDW 17.8 H 17.8 H Plt Count 385 374 MPV 7.1 7.1 Neut % (Auto) 74.6 H 71.5 H Lymph % (Auto) 12.0 13.4 [place] % (Auto) 10.2 H 10.9 H Eos % (Auto) 2.6 3.5 Baso % (Auto) 0.6 0.7 Neut # (Auto) 9.2 H 8.7 H Lymph # (Auto) 1.5 1.6 [place] # (Auto) 1.3 H 1.3 H Eos # (Auto) 0.3 0.4 Baso # (Auto) 0.1 0.1 WBC Differential . . Differential Comment Auto diff final Auto diff final Lab - Chemistry Results 05/02/18 05/02/18 05/02/18 14:41 14:41 16:40 Sodium Potassium Chloride Carbon Dioxide Anion Gap BUN Creatinine Estimated GFR POC Glucose 149 H Random Glucose Calcium Total Creatine Kinase 101 Troponin I 0.03 B-Natriuretic Peptide 233 H Procalcitonin 05/02/18 05/03/18 05/03/18 19:56 00:25 05:07 Sodium 143 Potassium 3.9 Chloride 105 Carbon Dioxide 29.0 Anion Gap 9 BUN 20 H Creatinine 1.33 H Estimated GFR 71 L POC Glucose 252 H Random Glucose 142 H Calcium 8.8 Total Creatine Kinase 169 86 Troponin I 0.03 0.03 B-Natriuretic Peptide Procalcitonin 05/03/18 05/03/18 05/03/18 06:00 12:25 17:11 Sodium Potassium Chloride Carbon Dioxide Anion Gap BUN Creatinine Estimated GFR POC Glucose 148 H 179 H 82 Random Glucose Calcium Total Creatine Kinase Troponin I B-Natriuretic Peptide Procalcitonin 05/03/18 05/04/18 05/04/18 18:47 01:01 04:00 Sodium 140 Potassium 3.6 Chloride 104 Carbon Dioxide 27.1 Anion Gap 9 BUN 19 H Creatinine 1.36 H Estimated GFR 70 L POC Glucose 242 H Random Glucose 124 H Calcium 8.4 L Total Creatine Kinase Troponin I B-Natriuretic Peptide Procalcitonin 0.15 H 05/04/18 05/04/18 05:55 12:40 Sodium Potassium Chloride Carbon Dioxide Anion Gap BUN Creatinine Estimated GFR POC Glucose 136 H 115 H Random Glucose Calcium Total Creatine Kinase Troponin I B-Natriuretic Peptide Procalcitonin Imaging: ITS Impressions Foot X-Ray 04/13/18 12:42 CONCLUSION: Stable examination with postsurgical changes not significantly changed. Extremity Arterial Study 04/14/18 00:00 CONCLUSION: 1. Severe right lower extremity peripheral arterial disease with large component of small vessel disease. 2. Moderate range left lower extremity DARRIUS's with reduced TBI's consistent with component of small vessel disease. 3. Consider CT angiography for further evaluation. Foot MRI 04/17/18 00:00 CONCLUSION: 1. There is bone marrow edema with abnormal enhancement suspicious for osteomyelitis in the fifth metacarpal head, third metacarpal head, and proximal phalanx of the third digit. 2. Nonspecific marrow edema is present in the proximal phalanx of the fifth digit. 3. Diffuse subcutaneous edema with a wound along the dorsal aspect of the foot superficial to the distal third metacarpal and expected location of the distal fourth metacarpal. Renal Ultrasound 04/20/18 00:00 CONCLUSION: 1. Limited evaluation secondary to body habitus. No evidence of renal artery stenosis Abdomen X-Ray 04/26/18 00:00 CONCLUSION: Moderate stool in the colon. Chest X-Ray 05/04/18 06:00 CONCLUSION: Patchy bilateral airspace disease, right greater than left similar to May 03. Physical Exam: GENERAL: NAD morbidly obese SKIN: Warm and dry. no rash HEAD: Atraumatic. Normocephalic. EYES: Pupils equal and round. No scleral icterus. No injection or drainage. ENT: No nasal bleeding or discharge. Mucous membranes pink and moist. NECK: Trachea midline. No JVD. CARDIOVASCULAR: Regular rate and rhythm. RESPIRATORY: No accessory muscle use. Clear to auscultation. Breath sounds equal bilaterally. GASTROINTESTINAL: Abdomen soft, non-tender, mildly distended. Hepatic and splenic margins not palpable. MUSCULOSKELETAL: Extremities without clubbing, cyanosis, + Much improved edema, 1+ sp R RMA dressing intact NEUROLOGICAL: Awake and alert. Non focal. Normal speech. PSYCHIATRIC: Appropriate mood and affect; insight and judgment normal. 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 he grew enterococcus along with 3+ enteric GNBs ? R lung consolidation Probable PNA cont Unasyn x 4 weeks. Pt potentially can be swithed to PO Augmentin after 4 weeks of therapy only if approved by behavioral health case manager in case if he is doing well Fluconazol 400 mg PO chk sputum clx switch unasyn to zosyn for now P sputum clx fu Bl clx will get PICC repeat CXR sputum clx UA, C+S reflex BNP
[2018-05-04] MEDS: Ferrous Sulfate 325 MG Tablet PO SCH ×2 (13:40→16:25)
--- NOTE | 2018-05-04 13:44 | P.DCO ---
Post Hospital Infusion Therapy Patient Weight: 116.5 kg - Diagnosis (1) Diabetic foot infection Code(s): E11.628 - Type 2 diabetes mellitus with other skin complications; L08.9 - Local infection of the skin and subcutaneous tissue, unspecified - Administer Medication Ampicillin/Sulbactam Directions: q 6 hours Additional Dosing Instructions: 3 gm IV q 6 hrs Start Treatment: 05/05/18 Stop Treatment: 06/08/18 - Additional Information Venous Access: PICC Line Additional Instructions: [x] Peripheral flush and dressing changes per protocol [x] Implanted port and central mason liner: * Implanted port: 10 ml Normal Saline followed by 5 ml Heparin 100 units/ml Heparin flush after each use and monthly to maintain. [] May leave port accessed during therapy. [] May leave peripheral site accessed for duration of therapy. [x] If patient has SOB or respiratory distress, check oxygen saturation. If less than 90% or clinical signs of respiratory distress, administer oxygen at 2 L/min. via nasal cannula and notify physician. [x] Anaphylaxis/Reaction orders: * Stop infusion. * Keep IV line open with saline flush. * Notify physician. * Monitor vital signs every 15 minutes until symptoms resolve. * Check Oxygen saturation; Oxygen at 2 L/min. via nasal cannula if less than 90% or clinical signs of respiratory distress. * Administer diphenhydramine (Benadryl) 25 mg IV STAT, (unless patient has received as pre-med). May repeat once, if necessary. * Solu-Cortef 250 mg IVP over 30-60 seconds, use 100 mg vials for each dissolution. * Epinephrine (1mg/1 ml) 0.3 mg subcutaneously or IVP now with any signs of respiratory distress. * Check with physician for new additional pre-med orders if patient is re- challenged or re-treated. [x] May remove PICC line when treatment complete, after confirming with Physician. [x] If the patient is admitted to the hospital, the ED, or transferred via [facility] , complete transfer form including medication reconciliation order sheet. Weekly Labs: CBC w/diff, CMP, CRP, SED Rate Allergies No Known Allergies Allergy (Verified 04/13/18 12:35)
[2018-05-04] MEDS ORDERED: Piperacil/Tazo 4.5 GM Premix 4.5 GM/100 ML BAG IV.SIG SCH (13:45)
--- NOTE | 2018-05-04 14:25 | P.DCO ---
- Home Health Nursing Order: IV medication administration - Certification I have seen patient Shay Garibay JR on 05/04/18. My clinical findings support the need for the requested home health care services because: Infection with risk of complications I certify that my clinical findings support that this patient is homebound because: Unsteady gait/balance
--- NOTE | 2018-05-04 15:05 | P.PNIM ---
Subjective Interval history: pain controlled, no sob. wants to go home. Physical Exam Vital signs: Vital Signs 05/03/18 16:00 05/03/18 20:00 05/04/18 00:00 Temperature 98.8 F 99.3 F 98.2 F Pulse Rate 103 H 95 H 95 H Respiratory Rate 19 20 18 Blood Pressure 182/86 H 160/77 H 162/79 H Pulse Oximetry 96 96 97 05/04/18 08:00 05/04/18 12:00 Temperature 99.8 F H 99.0 F Pulse Rate 105 H 93 H Respiratory Rate 18 18 Blood Pressure 157/84 H 160/74 H Pulse Oximetry 92 L 96 Intake & Output 05/03/18 05/04/18 05/04/18 18:59 06:59 18:59 Intake Total 1160 / 1160 540 / 540 Output Total 850 / 850 900 / 900 Balance 310 / 310 -360 / -360 Weight 116.5 kg 116.5 kg Intake: IV 200 / 200 300 / 300 Flexbumin 25% Inj 100 ML @ 60 100 / 100 100 / 100 mls/hr IV.SIG Q12H MER Rx#: [id number] Unasyn Inj 3 GM In NS Inj 100 100 / 100 200 / 200 ML @ 200 mls/hr IV.SIG Q6H MER Rx#:[id number] Oral 960 / 960 240 / 240 Output: Urine 850 / 850 900 / 900 Other: # Voids 4 Date of Last Bowel Movement 04/30/18 Narrative: GENERAL: Obese. Well-developed patient, in no apparent distress. SKIN: Warm and dry. HEENT: Normocephalic. Pupils equal round and reactive. Nose without bleeding. Airway patent. CARDIOVASCULAR: Regular rate and rhythm without murmurs, gallops, or rubs. RESPIRATORY: Diminished bases, No wheezes, rales, or rhonchi. GASTROINTESTINAL: Abdomen obese, non-tender, normoactive bowel sounds. MUSCULOSKELETAL: Extremities without clubbing, Right foot dressed dry and intact. Bilateral lower extremity trace edema, improved. NEUROLOGICAL: Awake and alert. - Urinary Catheter Management Indwelling Urethral Catheter Cath placed during this visit: yes, but has since been removed by the nurse Reason for continuing: Decision to DC catheter Insertion date: 04/22/18 Insertion time: 11:00 Removal date: 04/23/18 Removal time: 09:15 Results - Labs CBC & Chem 7: 05/04/18 04:08 05/04/18 04:00 Laboratory Results - last 24 hr 05/01/18 05/03/18 05/03/18 04:03 17:11 18:47 WBC RBC Hgb Hct MCV MCH MCHC RDW Plt Count MPV Neut % (Auto) Lymph % (Auto) [place] % (Auto) Eos % (Auto) Baso % (Auto) Neut # (Auto) Lymph # (Auto) [place] # (Auto) Eos # (Auto) Baso # (Auto) WBC Differential Differential Comment Sodium Potassium Chloride Carbon Dioxide Anion Gap BUN Creatinine Estimated GFR POC Glucose 82 Random Glucose Calcium Procalcitonin 0.15 H Urine Color Urine Clarity Urine pH Ur Specific [place] Urine Protein Urine Glucose (UA) Urine Ketones Urine Occult Blood Urine Nitrate Urine Bilirubin Urine Urobilinogen Ur Leukocyte Esterase Urine RBC Urine WBC Micro UA Comment Ur Microscopic Review Urine Culture Comments NORRIS Screen Neg 05/04/18 05/04/18 05/04/18 01:01 04:00 04:08 WBC 12.1 H RBC 2.88 L Hgb 7.4 L Hct 22.7 L MCV 78.8 L MCH 25.7 L MCHC 32.6 RDW 17.8 H Plt Count 374 MPV 7.1 Neut % (Auto) 71.5 H Lymph % (Auto) 13.4 [place] % (Auto) 10.9 H Eos % (Auto) 3.5 Baso % (Auto) 0.7 Neut # (Auto) 8.7 H Lymph # (Auto) 1.6 [place] # (Auto) 1.3 H Eos # (Auto) 0.4 Baso # (Auto) 0.1 WBC Differential . Differential Comment Auto diff final Sodium 140 Potassium 3.6 Chloride 104 Carbon Dioxide 27.1 Anion Gap 9 BUN 19 H Creatinine 1.36 H Estimated GFR 70 L POC Glucose 242 H Random Glucose 124 H Calcium 8.4 L Procalcitonin Urine Color Urine Clarity Urine pH Ur Specific [place] Urine Protein Urine Glucose (UA) Urine Ketones Urine Occult Blood Urine Nitrate Urine Bilirubin Urine Urobilinogen Ur Leukocyte Esterase Urine RBC Urine WBC Micro UA Comment Ur Microscopic Review Urine Culture Comments NORRIS Screen 05/04/18 05/04/18 05/04/18 05:55 06:10 12:40 WBC RBC Hgb Hct MCV MCH MCHC RDW Plt Count MPV Neut % (Auto) Lymph % (Auto) [place] % (Auto) Eos % (Auto) Baso % (Auto) Neut # (Auto) Lymph # (Auto) [place] # (Auto) Eos # (Auto) Baso # (Auto) WBC Differential Differential Comment Sodium Potassium Chloride Carbon Dioxide Anion Gap BUN Creatinine Estimated GFR POC Glucose 136 H 115 H Random Glucose Calcium Procalcitonin Urine Color Yellow Urine Clarity Clear Urine pH 7.0 Ur Specific [place] 1.012 Urine Protein 500 or greater Urine Glucose (UA) 50 Urine Ketones Negative Urine Occult Blood Small H Urine Nitrate Negative Urine Bilirubin Negative Urine Urobilinogen Less than 2 Ur Leukocyte Esterase Negative Urine RBC 3 Urine WBC 1 Micro UA Comment Culture not ind Ur Microscopic Review Not Reportable Urine Culture Comments Culture not ind NORRIS Screen Microbiology 05/03/18 18:50 Blood - Peripheral Aerobic Blood Culture - Preliminary No growth in 1 day 05/03/18 18:50 Blood - Peripheral Anaerobic Blood Culture - Preliminary No growth in 1 day 05/03/18 18:40 Blood - Peripheral Aerobic Blood Culture - Preliminary No growth in 1 day 05/03/18 18:40 Blood - Peripheral Anaerobic Blood Culture - Preliminary No growth in 1 day - Imaging Impressions Chest X-Ray 05/04/18 06:00 CONCLUSION: Patchy bilateral airspace disease, right greater than left similar to May 03. - Procedures DATE OF OPERATION: 04/15/2018 PREOPERATIVE DIAGNOSES: 1. Right extremity tissue loss. 2. Peripheral vascular disease. POSTOPERATIVE DIAGNOSES: 1. Right extremity tissue loss. 2. Peripheral vascular disease. PROCEDURE PERFORMED: Aortogram with right extremity angiogram. ATTENDING SURGEON: Moe Cullen MD Date of procedure: 04/22/18 Procedure: 1. R SFA-PT bypass (cryo) 2. R PT vein patch 3. Redo bypass Implants: cryo vein Anesthesia: GETA Surgeon: Moe Cullen MD Trim Die Maker: Poornima Benton Estimated blood loss (mL): 200 IV fluids (mL): 2,000 Urine output (mL): 325 Pathology: none sent Operation and Findings: very diseased perimalleolar PT patch and bypass from SFA to PT Palpable graft pulse DATE OF OPERATION: 04/25/2018 PREOPERATIVE DIAGNOSIS: Right foot gangrene. POSTOPERATIVE DIAGNOSIS: Right foot gangrene. PROCEDURE: 1. Right foot transmetatarsal amputation. 2. Right foot fifth metatarsal bone biopsy. Assessment and Plan - Assessment (1) Diabetic foot infection Code(s): E11.628 - Type 2 diabetes mellitus with other skin complications; L08.9 - Local infection of the skin and subcutaneous tissue, unspecified Status: Acute - Plan 43 year old AA male with past medical history of diabetes, diabetic neuropathy, HTN, HLD, status post right lower extremity bypass graft Dr. Cullen, right fourth toe amputation by Dr. Gates who came into the hospital for evaluation of worsening right foot diabetic infection. sepsis due to foot infection Diabetic foot infection Seen by Vascular surgery non palpable distal pulses as Per Vascular specialist Status post right lower extremity angiogram Severe right lower extremity peripheral arterial disease with large component of small vessel disease, Moderate range left lower extremity DARRIUS's with reduced TBI's s/p Right Superficial Femoral Artery to perimalleolar PT with vein patch, as per Vascular specialist. will need PICC line for long-term antibiotic. T-max overnight 99.9, increase in WBC count to 12.3. Discussed with Dr. Bolanos ID, recheck blood cultures; place PICC line today, Unasyn IV Q6 for 4 weeks if sputum cultures negative. D/W CM to evaluate to arrange for op abx 5th toe osteomyelitis -Foot xray showed Stable examination with postsurgical changes not significantly changed -Previous cultures of the foot 04/08/18 -Enterococcus faecalis, pseudomonas aeruginosa -he was placed on ampicillin, Levaquin based on sensitivities -ID consult, greatly appreciate assistance. -s/p redo R fem-PT with patch on 04/22/[address] Cullen vasc surgeon, now with strong distal pulses and Doppler - s/p right transmetatarsal amputation by Dr. Mackenzie 04/28. Wound care consulted for recommendations, appreciate assistance. - Pain control with P.O. Dilaudid and IV Morphine for breakthrough pain. - per Podiatry 05/01: Keep clean, dry, intact Follow up with Dr Mackenzie in 1 week after discharge Heel contact weightbearing only right foot in surgical shoe Stressed importance of NO weight to right forefoot and only to use heel to balance. Clear for discharge from podiatry anytime Flash pulmonary edema 05/02 -resolved Stat chest x-ray 05/02: Conclusion airspace opacities involving the peripheral aspect of the right upper lobe and right lower lobe. Concern for pneumonia. Pulmonary vascular appears grossly normal in caliber. Repeat chest x-ray 05/03 with patchy airspace consolidation on right lung similar to 05/02. await sputum culture and sens per ID -T-max overnight 99.9, check pro-calcitonin -Patient denies any shortness of breath, cough, on room air with stable oxygen saturation. - BNP minimally elevated at 233 s/p diuretics with good response. -Serial cardiac enzymes negative, EKG's with no acute changes, no CP complaints ID switched abx to Zosyn from Unasyn until sputum cultures available Constipation: KUB completed on 04/26 with moderate amount of stool in the colon. - Improved - continue stool softeners and add MiraLax daily, encourage mobility. -Last BM 04/30, continue stool softeners, patient refused MiraLAX today. DM 2, insulin-dependent, with complications of diabetic foot infection -Keep blood sugar below 180 gr/dl Levemir 25 BID, medium sliding scale, scheduled 5 units pre meal. -Blood sugars stable. HTN, essential chronic - better controlled -Continue amlodipine 10, hydralazine 25 mg 3 times daily. -Change clonidine 0.3 mg to patch, at least while admitted -Lisinopril and HCTZ on hold with ALVERTO -Blood pressure stable. HLD continue Home medicines. Acute kidney injury -Baseline creatinine 0.85, s/p IV fluids however due to overload these were held, renal function this morning slightly improved and stable with creatinine 1.36. -Consult nephrology following, appreciate assistance. Nephrology has okayed patient getting PICC line. -Continue to follow renal function Anemia, microcytic Multifactorial (post-op and SHAHBAZ) - 2 units of PRBC's to date given - Iron studies consistent w/ SHAHBAZ, p.o replacement - Hemoccult neg -H&H this morning 7.4/21.6, no reports of bleeding, recheck CBC shows stable hb Morbid obesity -Lifestyle modifications including diet and exercise DVT prop SCD Heparin Discharge Planning: Discussed with Dr. Bolanos who recommends IV Unasyn course 4 weeks if sputum cultures are negative.
[2018-05-04] MEDS ORDERED: Heparin Central Flush 100 UNIT/ML 5 ML Vial IV.FLUSH PRN (16:05)
[2018-05-04] MEDS: Morphine Inj 4 MG/ML Vial IV.PUSH PRN (16:19)
[2018-05-04] MEDS: Piperacil/Tazo 4.5 GM Premix 4.5 GM/100 ML BAG IV.SIG SCH ×2 (16:19→20:19)
[2018-05-05] MEDS: Morphine Inj 4 MG/ML Vial IV.PUSH PRN (01:04)
[2018-05-05] MEDS: Insulin NovoLOG Aspart Correctional Sugar Inj SQ SCH ×7 (01:27→18:52)
[2018-05-05] MEDS: Piperacil/Tazo 4.5 GM Premix 4.5 GM/100 ML BAG IV.SIG SCH ×4 (03:28→21:45)
[2018-05-05] MEDS: Heparin Central Flush 100 UNIT/ML 5 ML Vial IV.FLUSH SCH (09:22)
[2018-05-05] MEDS: Gabapentin 300 MG Capsule PO SCH ×3 (09:23→17:45)
[2018-05-05] MEDS: hydrALAZINE 25 MG Tablet PO SCH ×3 (09:23→17:42)
[2018-05-05] MEDS: amLODIPine 10 MG Tablet PO SCH (09:23)
[2018-05-05] MEDS: Senna/Docusate Sodium 8.6/50 MG Tablet PO SCH ×2 (09:23→21:46)
[2018-05-05] MEDS: Heparin - SQ 10,000 UNITS/ML Vial SQ SCH ×2 (09:24→21:46)
[2018-05-05] MEDS: Insulin Detemir Inj 1,000 UNIT/10 ML Vial SQ SCH ×2 (09:24→23:16)
[2018-05-05] MEDS: Polyethylene Glycol 3350 17 GM Packet PO SCH (09:25)
--- NOTE | 2018-05-05 11:18 | P.PNIM ---
Subjective Interval history: Reports that he has not been coughing. Has not had any shortness of breath. He really wants to go home. Physical Exam Vital signs: Vital Signs 05/04/18 12:00 05/04/18 16:00 05/04/18 20:00 Temperature 99.0 F 98.7 F 98.4 F Pulse Rate 93 H 93 H 94 H Respiratory Rate 18 18 18 Blood Pressure 160/74 H 139/61 150/70 H Pulse Oximetry 96 95 97 05/05/18 00:00 05/05/18 08:00 Temperature 98.7 F 98.1 F Pulse Rate 90 88 Respiratory Rate 18 18 Blood Pressure 152/69 H 131/60 Pulse Oximetry 95 97 Intake & Output 05/04/18 05/05/18 05/05/18 18:59 06:59 18:59 Intake Total 820 / 820 460 / 460 100 / 100 Output Total 1550 / 1550 1450 / 1450 Balance -730 / -730 -990 / -990 100 / 100 Weight 116.5 kg 118.5 kg Intake: IV 100 / 100 100 / 100 100 / 100 Zosyn 4.5 GM Premix 4.5 gm In 100 / 100 100 / 100 100 / 100 100 ml @ 200 mls/hr IV.SIG Q6H [facility] Rx#:[id number] Oral 720 / 720 360 / 360 Output: Urine 1550 / 1550 1450 / 1450 Other: Date of Last Bowel Movement 05/04/18 # Bowel Movements 0 Narrative: GENERAL: Obese. Well-developed patient, in no apparent distress. SKIN: Warm and dry. HEENT: Normocephalic. Pupils equal round and reactive. Nose without bleeding. Airway patent. CARDIOVASCULAR: Regular rate and rhythm without murmurs, gallops, or rubs. RESPIRATORY: Diminished bases, No wheezes, rales, or rhonchi. GASTROINTESTINAL: Abdomen obese, non-tender, normoactive bowel sounds. MUSCULOSKELETAL: Extremities without clubbing, Right foot dressed dry and intact. Bilateral lower extremity trace edema, improved. NEUROLOGICAL: Awake and alert. - Urinary Catheter Management Indwelling Urethral Catheter Cath placed during this visit: yes, but has since been removed by the nurse Reason for continuing: Decision to DC catheter Insertion date: 04/22/18 Insertion time: 11:00 Removal date: 04/23/18 Removal time: 09:15 Results - Labs CBC & Chem 7: 05/04/18 04:08 05/04/18 04:00 Laboratory Results - last 24 hr 05/04/18 05/04/18 05/04/18 04:08 12:40 17:31 POC Glucose 115 H 210 H B-Natriuretic Peptide 149 H 05/05/18 05/05/18 01:01 06:22 POC Glucose 337 H 76 B-Natriuretic Peptide Microbiology 05/03/18 18:50 Blood - Peripheral Aerobic Blood Culture - Preliminary No growth in 2 days 05/03/18 18:50 Blood - Peripheral Anaerobic Blood Culture - Preliminary No growth in 2 days 05/03/18 18:40 Blood - Peripheral Aerobic Blood Culture - Preliminary No growth in 2 days 05/03/18 18:40 Blood - Peripheral Anaerobic Blood Culture - Preliminary No growth in 2 days - Procedures DATE OF OPERATION: 04/15/2018 PREOPERATIVE DIAGNOSES: 1. Right extremity tissue loss. 2. Peripheral vascular disease. POSTOPERATIVE DIAGNOSES: 1. Right extremity tissue loss. 2. Peripheral vascular disease. PROCEDURE PERFORMED: Aortogram with right extremity angiogram. ATTENDING SURGEON: Moe Cullen MD Date of procedure: 04/22/18 Procedure: 1. R SFA-PT bypass (cryo) 2. R PT vein patch 3. Redo bypass Implants: cryo vein Anesthesia: GETA Surgeon: Moe Cullen MD Paunch Trimmer: Poornima Benton Estimated blood loss (mL): 200 IV fluids (mL): 2,000 Urine output (mL): 325 Pathology: none sent Operation and Findings: very diseased perimalleolar PT patch and bypass from SFA to PT Palpable graft pulse DATE OF OPERATION: 04/25/2018 PREOPERATIVE DIAGNOSIS: Right foot gangrene. POSTOPERATIVE DIAGNOSIS: Right foot gangrene. PROCEDURE: 1. Right foot transmetatarsal amputation. 2. Right foot fifth metatarsal bone biopsy. 911 PICC line placement Assessment and Plan - Assessment (1) Diabetic foot infection Code(s): E11.628 - Type 2 diabetes mellitus with other skin complications; L08.9 - Local infection of the skin and subcutaneous tissue, unspecified Status: Acute - Plan 43 year old AA male with past medical history of diabetes, diabetic neuropathy, HTN, HLD, status post right lower extremity bypass graft Dr. Cullen, right fourth toe amputation by Dr. Gates who came into the hospital for evaluation of worsening right foot diabetic infection. sepsis due to foot infectionresolved Diabetic foot infection Seen by Vascular surgery non palpable distal pulses as Per Vascular specialist Status post right lower extremity angiogram Severe right lower extremity peripheral arterial disease with large component of small vessel disease, Moderate range left lower extremity DARRIUS's with reduced TBI's s/p Right Superficial Femoral Artery to perimalleolar PT with vein patch, as per Vascular specialist. will need PICC line for long-term antibiotic. T-max overnight 99.9, increase in WBC count to 12.3. Discussed with Dr. Bolanos ID, recheck blood cultures; place PICC line 05/04, Unasyn IV Q6 for 4 weeks if sputum cultures negative. D/W CM to evaluate to arrange for op abx 5th toe osteomyelitis -Foot xray showed Stable examination with postsurgical changes not significantly changed -Previous cultures of the foot 04/08/18 -Enterococcus faecalis, pseudomonas aeruginosa -he was initially placed on ampicillin, Levaquin based on sensitivities and now switched to IV Unasyn, yesterday Dr. Bolanos change the antibiotics to Zosyn until final sputum cultures are available for review. -s/p redo R fem-PT with patch on 04/22/[address] Alyse bell surgeon, now with strong distal pulses and Doppler - s/p right transmetatarsal amputation by Dr. Mackenzie 04/28. Wound care consulted for recommendations, appreciate assistance. - Pain control with P.O. Dilaudid and IV Morphine for breakthrough pain. - per Podiatry 05/01: Keep clean, dry, intact Follow up with Dr Mackenzie in 1 week after discharge Heel contact weightbearing only right foot in surgical shoe Stressed importance of NO weight to right forefoot and only to use heel to balance. Clear for discharge from podiatry anytime Flash pulmonary edema 05/02 -resolved Stat chest x-ray 05/02: Conclusion airspace opacities involving the peripheral aspect of the right upper lobe and right lower lobe. Concern for pneumonia. Pulmonary vascular appears grossly normal in caliber. Repeat chest x-ray 05/03 with patchy airspace consolidation on right lung similar to 05/02. await sputum culture and sens per ID, currently on Zosyn -T-max overnight 99.9, check pro-calcitonin -Patient denies any shortness of breath, cough, on room air with stable oxygen saturation. - BNP minimally elevated at 233 s/p diuretics with good response. -Serial cardiac enzymes negative, EKG's with no acute changes, no CP complaints ID switched abx to Zosyn from Unasyn until sputum cultures available Constipation: KUB completed on 04/26 with moderate amount of stool in the colon. - Improved - continue stool softeners and add MiraLax daily, encourage mobility. -Last BM 04/30, continue stool softeners, patient refused MiraLAX today. DM 2, insulin-dependent, with complications of diabetic foot infection -Keep blood sugar below 180 gr/dl Levemir 25 BID, medium sliding scale, labile blood sugars and will increase to 7 units of subcu NovoLog 3 times daily pre-prandial HTN, essential chronic - better controlled -Continue amlodipine 10, hydralazine 25 mg 3 times daily. -Change clonidine 0.3 mg to patch, at least while admitted -Lisinopril and HCTZ on hold with ALVERTO -Blood pressure stable. HLD continue Home medicines. Acute kidney injury -Baseline creatinine 0.85, s/p IV fluids however due to overload these were held, renal function this morning slightly improved and stable with creatinine 1.36. -Consult nephrology following, appreciate assistance. Nephrology has okayed patient getting PICC line. -Continue to follow renal function Anemia, microcytic Multifactorial (post-op and SHAHBAZ) - 2 units of PRBC's to date given - Iron studies consistent w/ SHAHBAZ, p.o replacement - Hemoccult neg recheck CBC shows stable hb Morbid obesity -Lifestyle modifications including diet and exercise DVT prop SCD Heparin Discharge Planning: Discussed with Dr. Bolanos who recommends IV Unasyn course 4 weeks if sputum cultures are negative. We will have correctional casework specialist evaluate if this is an option for outpatient treatment.
--- NOTE | 2018-05-05 11:29 | P.DCO ---
Post Hospital Infusion Therapy Location of Infusion Therapy: Home Health Care IV Infusion Order Patient Weight: 118.5 kg - Diagnosis (1) Diabetic foot infection Code(s): E11.628 - Type 2 diabetes mellitus with other skin complications; L08.9 - Local infection of the skin and subcutaneous tissue, unspecified - Administer Medication Ampicillin/Sulbactam Additional Dosing Instructions: 3 gm IV q 6 hrs Start Treatment: 05/06/18 Stop Treatment: 06/02/18 - Additional Information Venous Access: PICC Line Additional Instructions: [x] Peripheral flush and dressing changes per protocol [x] Implanted port and central line worker: * Implanted port: 10 ml Normal Saline followed by 5 ml Heparin 100 units/ml Heparin flush after each use and monthly to maintain. [] May leave port accessed during therapy. [] May leave peripheral site accessed for duration of therapy. [x] If patient has SOB or respiratory distress, check oxygen saturation. If less than 90% or clinical signs of respiratory distress, administer oxygen at 2 L/min. via nasal cannula and notify physician. [x] Anaphylaxis/Reaction orders: * Stop infusion. * Keep IV line open with saline flush. * Notify physician. * Monitor vital signs every 15 minutes until symptoms resolve. * Check Oxygen saturation; Oxygen at 2 L/min. via nasal cannula if less than 90% or clinical signs of respiratory distress. * Administer diphenhydramine (Benadryl) 25 mg IV STAT, (unless patient has received as pre-med). May repeat once, if necessary. * Solu-Cortef 250 mg IVP over 30-60 seconds, use 100 mg vials for each dissolution. * Epinephrine (1mg/1 ml) 0.3 mg subcutaneously or IVP now with any signs of respiratory distress. * Check with physician for new additional pre-med orders if patient is re- challenged or re-treated. [x] May remove PICC line when treatment complete, after confirming with Physician. [x] If the patient is admitted to the hospital, the ED, or transferred via [facility] , complete transfer form including medication reconciliation order sheet. Weekly Labs: CBC w/diff, CMP, CRP, SED Rate Allergies No Known Allergies Allergy (Verified 04/13/18 12:35)
[2018-05-05] MEDS: Ferrous Sulfate 325 MG Tablet PO SCH ×2 (12:55→17:42)
[2018-05-06] MEDS: Piperacil/Tazo 4.5 GM Premix 4.5 GM/100 ML BAG IV.SIG SCH ×2 (03:01→09:08)
[2018-05-06] MEDS: Morphine Inj 4 MG/ML Vial IV.PUSH PRN (03:06)
[2018-05-06] MEDS: Insulin NovoLOG Aspart Correctional Sugar Inj SQ SCH ×3 (03:07→08:12)
--- NOTE | 2018-05-06 08:37 | P.DS ---
Date of admission: 04/13/18 15:29 Primary care physician: UNKNOWN Brief History from admission: Patient is a 43 year old AA male with past medical history of diabetes, diabetic neuropathy, HTN, HLD, status post right lower extremity bypass graft Dr. Cullen, right fourth toe amputation by Dr. Wu who came into the hospital for evaluation of worsening right foot diabetic infection. Patient states he was doing okay and has been seeing wound care for his diabetic foot ulcer. He started to notice worsening infection on . He was placed on ampicillin and Levaquin by wound care physician yesterday. Patient states right foot with increasing pain with drainage, noticed that the 5th toe is getting black. They called Dr. Morales, wound care physician, who instructed him to come to the emergency department . States that the bypass surgery site has been healing about 99, and not draining. Foot xray showed Stable examination with postsurgical changes not significantly changed. Right foot pain 7/10, sharp, intermittent, burning at times, reports neuropathy is also present, aggravated by movement, states previous pain medication "helped a little bit." Denies SOB/ dyspnea. Denies chest pain, palpitations, headaches, dizziness. Denies fevers, chills, n/v/d. Denies dysuria. WBC 11.9, ESR 102, C-reactive protein 10.70, creatinine 1.31 Patient update on day of discharge: Patient reports pain control. He still wants to go home. There is no complaints of fevers or chills. There is no shortness of breath. DS: Diagnosis - Discharge Diagnosis (1) Sepsis Status: Acute Diagnosis: Principal (2) Diabetic foot infection Status: Acute Diagnosis: Principal (3) Diabetes mellitus type 2 with complications, uncontrolled Status: Chronic Diagnosis: Secondary (4) PAD (peripheral artery disease) Status: Chronic Diagnosis: Secondary (5) Tobacco abuse Status: Chronic Diagnosis: Secondary (6) Gangrene of toe of right foot Status: Resolved Diagnosis: Secondary (7) Hypertension Status: Chronic Diagnosis: Secondary DS: Medications - Discharge Medications Prescriptions: amlodipine [Norvasc] 10 mg PO DAILY #30 tab clonidine [[id number]] 1 patch TRANSDERMAL Q7D #4 ea ferrous sulfate [FeroSul] 325 mg PO BID@1200,1700 #60 tab hydrocodone-acetaminophen 1 tab PO Q4H PRN #28 tab PRN Reason: Acute Pain insulin detemir U-100 [Levemir U-100 Insulin] 25 unit SUB-Q BID #60 ml lisinopril 40 mg PO BID 60 Days #240 tab DS: Summary Hospital Course: 43 year old AA male with past medical history of diabetes, diabetic neuropathy, HTN, HLD, status post right lower extremity bypass graft Dr. Cullen, right fourth toe amputation by Dr. Wu who came into the hospital for evaluation of worsening right foot diabetic infection. These are the medical issues addressed during this hospitalization: sepsis due to foot infectionresolved Diabetic foot infection Seen by Vascular surgery non palpable distal pulses as Per Vascular specialist Status post right lower extremity angiogram Severe right lower extremity peripheral arterial disease with large component of small vessel disease, Moderate range left lower extremity DARRIUS's with reduced TBI's s/p Right Superficial Femoral Artery to perimalleolar PT with vein patch, as per Vascular specialist. will need PICC line for long-term antibiotic. T-max overnight 99.9, increase in WBC count to 12.3. Discussed with Dr. Bolanos ID, recheck blood cultures; place PICC line 05/04, Unasyn IV Q6 for 4 weeks as repeat sputum cultures are negative. Case management arrange for continued outpatient treatment for transitions of care. 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 Mackenzie 04/28. Wound care consulted for recommendations, appreciate assistance. - Pain control with P.O. Dilaudid and IV Morphine for breakthrough pain. - per Podiatry 05/01: Keep clean, dry, intact Follow up with Dr Mackenzie in 1 week after discharge Heel contact weightbearing only right foot in surgical shoe Stressed importance of NO weight to right forefoot and only to use heel to balance. Clear for discharge from podiatry anytime Flash pulmonary edema 05/02 -resolved Stat chest x-ray 05/02: Conclusion airspace opacities involving the peripheral aspect of the right upper lobe and right lower lobe. Concern for pneumonia. Pulmonary vascular appears grossly normal in caliber. Repeat chest x-ray 05/03 with patchy airspace consolidation on right lung similar to 05/02. await sputum culture and sens per ID, currently on Zosyn -T-max overnight 99.9, check pro-calcitonin -Patient denies any shortness of breath, cough, on room air with stable oxygen saturation. - BNP minimally elevated at 233 s/p diuretics with good response. -Serial cardiac enzymes negative, EKG's with no acute changes, no CP complaints ID switched abx to Zosyn from Unasyn until sputum cultures available Constipation: KUB completed on 04/26 with moderate amount of stool in the colon. - Improved - continue stool softeners and add MiraLax daily, encourage mobility. -Last BM 04/30, continue stool softeners, patient refused MiraLAX today. DM 2, insulin-dependent, with complications of diabetic foot infection -Keep blood sugar below 180 gr/dl Levemir 25 BID, medium sliding scale, labile blood sugars and will increase to 7 units of subcu NovoLog 3 times daily pre-prandial HTN, essential chronic - better controlled -Continue amlodipine 10, hydralazine 25 mg 3 times daily. -Change clonidine 0.3 mg to patch, at least while admitted -Lisinopril and HCTZ on hold with ALVERTO and later restarted due to improvement in kidney function. -Blood pressure stable. HLD continue Home medicines. Acute kidney injury -Baseline creatinine 0.85, s/p IV fluids however due to overload these were held, renal function improved and stable with creatinine 1.36. -Consult nephrology during the hospitalization, appreciate assistance. Nephrology has okayed patient getting PICC line. -Continue to follow renal function Anemia, microcytic Multifactorial (post-op and SHAHBAZ) - 2 units of PRBC's to date given - Iron studies consistent w/ SHAHBAZ, p.o replacement - Hemoccult neg recheck CBC shows stable hb Morbid obesity -Lifestyle modifications including diet and exercise DVT prop SCD Heparin E-FORCE Prescription Drug Monitoring Database has been queried and verified prior to prescribing the controlled subsection. Patient is having significant pain caused by [foot infection ] which will last more than 3 days. Trial of alternative treatment options other than prescribed opioids has not helped. I believe that it is medically necessary to treat the patients pain because it is affecting patients ability to [ perform activities of daily living ] - Time Spent with Patient Total time spent providing and/or coordinating discharge services: Less than 30 minutes - Quality: VTE Deep Vein Thrombosis/Pulmonary Embolism Present on Admission: No Exam Vital signs: Vital Signs 05/05/18 12:00 05/05/18 15:37 05/05/18 19:46 Temperature 98.3 F 98.8 F 98.8 F Pulse Rate 91 H 91 H 90 Respiratory Rate 17 17 20 Blood Pressure 146/71 H 142/67 H 131/71 Pulse Oximetry 95 95 96 05/06/18 00:00 05/06/18 08:00 Temperature 98.5 F 98.3 F Pulse Rate 89 86 Respiratory Rate 20 22 Blood Pressure 166/78 H 147/72 H Pulse Oximetry 94 L 96 Intake & Output 05/05/18 05/06/18 05/06/18 18:59 06:59 18:59 Intake Total 1260 / 1260 680 / 680 Output Total 1999 1200 / 1200 Balance -740 / -740 -520 / -520 Weight 118.5 kg 116.5 kg Intake: IV 300 / 300 200 / 200 Zosyn 4.5 GM Premix 4.5 gm In 300 / 300 200 / 200 100 ml @ 200 mls/hr IV.SIG Q6H [facility] Rx#:[id number] Oral 960 / 960 480 / 480 Output: Urine 1999 1200 / 1200 Narrative: GENERAL: This is a well-nourished, well-developed patient, in no apparent distress. CARDIOVASCULAR: Regular rate and rhythm without murmurs, gallops, or rubs. RESPIRATORY: Clear to auscultation. Breath sounds equal bilaterally. No wheezes , rales, or rhonchi. GASTROINTESTINAL: Abdomen soft, non-tender, nondistended. Normal active bowel sounds MUSCULOSKELETAL: Left foot bandage clean dry intact NEURO: Alert & Oriented x4 to person, place, time, situation. Moves all ext x4 Results Procedures completed during hospitalization: DATE OF OPERATION: 04/15/2018 PREOPERATIVE DIAGNOSES: 1. Right extremity tissue loss. 2. Peripheral vascular disease. POSTOPERATIVE DIAGNOSES: 1. Right extremity tissue loss. 2. Peripheral vascular disease. PROCEDURE PERFORMED: Aortogram with right extremity angiogram. ATTENDING SURGEON: Moe Cullen MD Date of procedure: 04/22/18 Procedure: 1. R SFA-PT bypass (cryo) 2. R PT vein patch 3. Redo bypass Implants: cryo vein Anesthesia: GETA Surgeon: Moe Cullen MD Lithopone Charger: Poornima Benton Estimated blood loss (mL): 200 IV fluids (mL): 2,000 Urine output (mL): 325 Pathology: none sent Operation and Findings: very diseased perimalleolar PT patch and bypass from SFA to PT Palpable graft pulse DATE OF OPERATION: 04/25/2018 PREOPERATIVE DIAGNOSIS: Right foot gangrene. POSTOPERATIVE DIAGNOSIS: Right foot gangrene. PROCEDURE: 1. Right foot transmetatarsal amputation. 2. Right foot fifth metatarsal bone biopsy. 911 PICC line placement Labs on day of discharge: Labs from last 24 hours 05/06/18 05/06/18 05/05/18 06:40 03:01 23:11 POC Glucose 123 H 211 H 282 H 05/05/18 05/05/18 05/05/18 17:42 16:54 12:55 POC Glucose 145 H 68 122 H Preliminary micro results at discharge 05/04/18 20:50 Sputum Culture - Preliminary Sputum - Expectorated Sputum Immature growth - reincubate 04/28/18 14:20 Mycobacterial Culture - Preliminary Wound - Toe No growth in 1 week 04/28/18 14:20 Fungal Culture - Preliminary Wound - Toe No growth in 1 week 04/28/18 14:20 Mycobacterial Culture - Preliminary Wound - Toe No growth in 1 week 04/28/18 14:20 Fungal Culture - Preliminary Wound - Toe No growth in 1 week 05/03/18 18:50 Aerobic Blood Culture - Preliminary Blood - Peripheral No growth in 2 days Anaerobic Blood Culture - Preliminary No growth in 2 days 05/03/18 18:40 Aerobic Blood Culture - Preliminary Blood - Peripheral No growth in 2 days Anaerobic Blood Culture - Preliminary No growth in 2 days - Impressions ITS Impressions Foot X-Ray 04/13/18 12:42 CONCLUSION: Stable examination with postsurgical changes not significantly changed. Extremity Arterial Study 04/14/18 00:00 CONCLUSION: 1. Severe right lower extremity peripheral arterial disease with large component of small vessel disease. 2. Moderate range left lower extremity DARRIUS's with reduced TBI's consistent with component of small vessel disease. 3. Consider CT angiography for further evaluation. Foot MRI 04/17/18 00:00 CONCLUSION: 1. There is bone marrow edema with abnormal enhancement suspicious for osteomyelitis in the fifth metacarpal head, third metacarpal head, and proximal phalanx of the third digit. 2. Nonspecific marrow edema is present in the proximal phalanx of the fifth digit. 3. Diffuse subcutaneous edema with a wound along the dorsal aspect of the foot superficial to the distal third metacarpal and expected location of the distal fourth metacarpal. Renal Ultrasound 04/20/18 00:00 CONCLUSION: 1. Limited evaluation secondary to body habitus. No evidence of renal artery stenosis Abdomen X-Ray 04/26/18 00:00 CONCLUSION: Moderate stool in the colon. Chest X-Ray 05/04/18 06:00 CONCLUSION: Patchy bilateral airspace disease, right greater than left similar to May 03. Discharge Plan - Discharge Disposition Patient Disposition: /Home Health Service - Discharge Condition Condition: Good - Discharge Order Discharge Orders: Discharge Order (Routine); Ordered 05/06/18 Ordered By: Alva Ruvalcaba Podiatry Clear for Discharge (Routine); Ordered 05/05/18 Ordered By: Ruth Glass Vascular Surgery Clear for Discharge (Routine); Ordered 05/03/18 Ordered By: Kasey Caldwell - Discharge Details Anticipated Discharge Date: 05/06/18 - Physicians Team Primary Care Provider: UNKNOWN, Attending Provider: Alva Ruvalcaba Other Providers: Masoud Wu DPM ; Moe Cullen MD ; Geneva Morales MD ; Janeen Bolanos MD ; Kei Hanley MD
[2018-05-06] MEDS: Heparin Central Flush 100 UNIT/ML 5 ML Vial IV.FLUSH SCH (09:09)
[2018-05-06] MEDS: Senna/Docusate Sodium 8.6/50 MG Tablet PO SCH (09:09)
[2018-05-06] MEDS: Gabapentin 300 MG Capsule PO SCH (09:09)
[2018-05-06] MEDS: amLODIPine 10 MG Tablet PO SCH (09:09)
[2018-05-06] MEDS: hydrALAZINE 25 MG Tablet PO SCH (09:09)
[2018-05-06] MEDS: Heparin - SQ 10,000 UNITS/ML Vial SQ SCH (09:10)
[2018-05-06] MEDS: Insulin Detemir Inj 1,000 UNIT/10 ML Vial SQ SCH (09:10)
[2018-05-06] MEDS: Polyethylene Glycol 3350 17 GM Packet PO SCH (09:11)
== END 2018-05-06 11:12 | disposition home health service (06) ==
LOC: NEPE 09:24 → NEDA 15:29 → N07 16:04 → NEDH 16:08 → N07 17:15
PROVIDERS: ADMIT Family Medicine; ATTEND Family Medicine